=== PATIENT | female | born 1945 | race Caucasian/White ===

== ENCOUNTER 2019-04-09 18:34 | Observation (INO) | payer MEDICARE, SELFPAY ==
[2019-04-09] VITALS (10 sets, daily range): BP systolic 101–143; BP diastolic 54–81; PULSE 69–84; RESP 18–23; TEMP 36.5–36.8; O2SAT 93–99; BMI 38.2
--- NOTE | ~2019-04-09 | CT_ITS ---
EXAMINATION: CTA chest PE abdomen pel EXAM DATE: 04/09/2019 20:11 INDICATION: Pain on exertion. Upper abdominal tenderness. Back pain. TECHNIQUE: Spiral CTA of the chest (pulmonary arteries) was performed with 100 cc Omnipaque 350 intr avenous contrast injection. Images were acquired during the pulmonary arterial phase. Coronal maxi mum intensity projection 3D-reconstructions were created by the technologist on dedicated workstation . Axial, coronal and sagittal reformatted images were reviewed. Spiral CT of the abdomen and pelvis was then performed with the same intravenous contrast injection. Axial, coronal and sagittal reform atted images were reviewed. The dose-length product (DLP) for this examination was 951.19 mGy-cm. T he exposure was tailored according to patient size (auto mA exposure control), and iterative reconst ruction (ASIR) was used as additional dose reduction technique. Comparison is made to prior examinati on from 06/04/2018. FINDINGS: CHEST: Pulmonary arteries are well opacified and without intraluminal filling defects. No thoracic aortic dissection. The lungs are clear. There is mild emphysema. There are no pleural or pericardia l effusions. Tracheobronchial tree is patent. There is no mediastinal, hilar or axillary lymphade nopathy. There is no pneumothorax. Heart normal in size. There is mild coronary arterial calcif ication, arterial sclerosis. ABDOMEN PELVIS: Again there is saccular dilation at the origin of the left internal iliac artery, rohan suring 1.6 cm unchanged. The largest liver cyst is in the left liver lobe lateral segment, measures 2 .6 cm. The spleen, pancreas, and adrenal glands are unremarkable. There are cholecystectomy clips. Portal and splenic veins are patent. Kidneys enhance symmetrically. There is no hydronephrosis. The uterus is not identified and has likely been surgically resected. The bladder is unremarkable. There is no retroperitoneal or pelvic lymphadenopathy. There is moderate scattered arteriosclerotic disease. The appendix is not positively visualized. There is no pericecal inflammatory change to suggest appe ndicitis. The stomach and small bowel are unremarkable. There is mild scattered colonic diverticulo sis. There is no adjacent inflammatory change to suggest diverticulitis. There is expected amount of colonic stool. No free intraperitoneal gas. There are no osteoblastic or osteolytic lesions iden tified. IMPRESSION: 1. No pulmonary emboli or acute findings. 2. Mild scattered colonic diverticulosis. 3. Stable left internal iliac artery aneurysm. Reviewed, dictated and finalized at location A. CAB DRIVER
--- NOTE | 2019-04-09 18:44 | ED.SOB ---
HPI - SOB/Dyspnea General Chief Complaint: Shortness of Breath/Dyspnea Stated Complaint: SOB Time Seen by Provider: 04/09/19 18:43 Source: patient and RN notes reviewed Mode of arrival: other Limitations: no limitations History of Present Illness HPI Narrative: Pt is a 74 y/o female who presents to the ED with c/o intermittent SOB that began this morning after waking up. She notes that her dyspnea is worsened with exertion. Shes states that her PCP prescribed her Meclizine for her sinus congestion. Pt states that her dizziness during her sinus congestion is different than her dizziness now. Pt described her dizziness during her sinus infection as if the room was spinning, but she states that her dizziness is different currently. She states that she only feels dizzy whenever she is short of breath. She notes that 5 years ago, she had her heart checked out at [facility] for an irregular heart beat. Pt also reports brief back pain, brief epigastric abdominal pain that began this morning, diaphoresis, cough, fatigue, and lightheadedness, but denies nausea and vomiting. Pt is taking ASA 81 mg daily. MD elicited complaint: shortness of breath Onset (ago): hour(s) Timing: intermittent Exacerbating factors: exertion Associated symptoms: cough, diaphoresis, abdominal pain (brief epigastric), dizziness (intermittent), lightheadedness and other (brief epigastric abdominal pain, brief back pain, fatigue) Related Data Home Medications Medication Instructions Recorded Confirmed acetaminophen 500 mg PO Q6H PRN 11/28/18 04/09/19 aspirin 81 mg PO DAILY 11/28/18 04/09/19 calcium carbonate-vitamin D3 1 cap PO DAILY 11/28/18 04/09/19 carvedilol 6.25 mg PO BID 11/28/18 04/09/19 cholecalciferol (vitamin D3) 50,000 unit PO [id number] 11/28/18 04/09/19 hydrochlorothiazide 12.5 mg PO DAILY 11/28/18 04/09/19 levothyroxine 125 mcg PO DAILY 11/28/18 04/09/19 polysaccharide iron complex 150 mg PO BID 11/28/18 04/09/19 [Ferrex 150] simvastatin 40 mg PO DAILY 11/28/18 04/09/19 fluticasone propionate 1 spray INTRANASAL DAILY 03/18/19 04/09/19 loratadine [Claritin] 10 mg PO DAILY PRN 03/18/19 04/09/19 meclizine 25 mg PO BID 03/18/19 04/09/19 Allergies Allergy/AdvReac Type Severity Reaction Status Date / Time codeine Allergy Mild Rash Verified 04/09/19 18:58 meperidine Allergy Unknown Unknown Verified 04/09/19 18:58 NSAIDS (Non-Steroidal AdvReac Unknown N/V Verified 04/09/19 18:58 Anti-Inflamma Review of Systems Review of Systems: All systems reviewed & are unremarkable except as noted in HPI and below Constitutional: Constitutional: Reports fatigue Cardiovascular: Cardiovascular: Reports diaphoresis and Reports lightheadedness Respiratory: Respiratory: Reports cough and Reports dyspnea (intermittent) Gastrointestinal: Gastrointestinal: Reports abdominal pain (brief epigastric), Denies nausea and Denies vomiting Musculoskeletal: Musculoskeletal: Reports back pain (brief) Neurologic: Reports dizziness (intermittent) PMFSH Past Medical History Medical History Bronchitis DDD (degenerative disc disease) Endometriosis Hemorrhoid Hiatal hernia HTN (hypertension) Hyperlipidemia Hypothyroid Pancreatitis Presence of pancreatic duct stent 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
--- NOTE | 2019-04-09 18:54 | ECG_ITS ---
Measurements Intervals [place] Rate: 76 P: 28 AR: 169 QRS: 10 QRSD: 85 T: 17 QT: 384 QTc: 433 Interpretive Statements SINUS RHYTHM LOW QRS VOLTAGE IN PRECORDIAL LEADS BASELINE ARTIFACT- I, II, V5 BORDERLINE ECG Electronically Signed On 04-09-2019 20:29:39 LIME KILN AND RECAUSTICIZING OPERATOR by Tj Serra D.O.
[2019-04-09 19:06] LABS: Basophils Absolute Auto 0.1 K/mm3 (0.0-0.1); Eosinophils Absolute Auto 0.5 K/mm3 (0-0.3); Eosinophils Percent Auto 8.7 % (0-4.4); Hematocrit 30.3 % (37.0-47.0); Hemoglobin 9.4 g/dL (12.0-15.0); Immature Granulocyte Absolute 0.03 K/mm3 (0.00-0.031); Immature Granulocyte Percent A 0.5 % (0-0.5); Lymphocytes Absolute Auto 1.07 K/mm3 (0.9-3.2); Lymphocytes Percent Auto 17.2 % (18.3-44.2); Mean Corpuscular Hemoglobin 28.2 pg (26-34); Mean Platelet Volume 9.3 fl (7.4-10.4); Monocytes Absolute Auto 0.4 K/mm3 (0.1-0.6); Monocytes Percent Auto 7.1 % (2.6-8.5); Neutrophils Absolute Auto 4.1 K/mm3 (1.3-6.7); Neutrophils Percent Auto 65.5 % (45.5-73.1); Platelet Count Result 346 k/mm3 (150-375); Red Blood Count 3.33 M/mm3 (4.2-5.4); Red Cell Distribution Width 15.2 % (11.5-14.5); White Blood Count 6.2 K/mm3 (4.5-10.0)
[2019-04-09 19:16] LABS: Partial Thromboplastin Time 33.6 SECONDS (22.3-36.8); Prothrombin Time 12.7 Seconds (11.1-14.7)
[2019-04-09 19:18] LABS: Potassium 3.7 mmol/L (3.4-5.0)
[2019-04-09 19:19] LABS: D Dimer 0.49 ug/mL (<0.48)
[2019-04-09 19:20] LABS: Alanine Aminotransferase 14 U/L (4-35); Albumin Level 4.2 g/dL (3.5-5.1); Alkaline Phosphatase 80 U/L (38-126); Aspartate Amino Transferase 16 U/L (14-36); Bilirubin,Total 0.3 mg/dL (0.2-1.3); Blood Urea Nitrogen 13 mg/dL (7-17); Calcium 9.5 mg/dL (8.4-10.2); Carbon Dioxide 26 mmol/L (22-30); Chloride 100 mmol/L (98-107); Estimated CRCL calculation 53 ml/min; Estimated Glomerular Filt Rate > 60; Glucose 117 mg/dL (65-105); Lipase 120 U/L (23-300); Sodium 139 mmol/L (137-145)
[2019-04-09 19:26] LABS: Add Urine Microscopic? NO; Appearance Urine Clear (Clear); Bilirubin Urine Negative (Negative); Blood Urine Negative (Negative); Color Urine Colorless (Yellow); Glucose Urine UA Negative (Negative); Ketones Urine Negative (Negative); Leukocyte Esterase Ur Negative LEU/UL (Negative); Nitrate Urine Negative (Negative); Protein Urine Negative (Negative); Specific Grav Ur 1.008 (1.001-1.035); Urobilinogen Urine Negative mg/dL (<2.0)
[2019-04-09 19:29] LABS: Troponin I < 0.012 ng/mL (0.000-0.034)
--- NOTE | 2019-04-09 21:58 | ADMGEN ---
This patient, Jory Tucker, was admitted to IMU Room 207-01. Patient/family oriented to hospital policies and general routines including ID bracelet, bed and alarms, visiting hours, pain management, procedures, bathroom and other care routines, personal items, smoking policy, room service/diet, and visiting hours. Valuables list has been completed. Information on how to activate the Rapid Response Team has been discussed. Patient/Family are encouraged to report perceived risks to care and to ask questions if they do not understand what they are told or what they should do.
--- NOTE | 2019-04-09 22:11 | PM.IMHP ---
H&P: HPI History of Present Illness Chief complaint: dyspnea on exertion Narrative: This is a 74 year old female with known history of HTN, hyperlipidemia and hypothyroidism who presented to the hospital with a complaint of exertional dyspnea and generalized weakness. She mentions that approximately 2 weeks ago she had an episode of exertional dyspnea when walking up a flight of stairs that resolved quickly. She had been doing well until this morning when she noticed she had some mild shortness of breath which worsened with exertion. Associated symptoms included diaphoresis. She denies any recent LE swelling, leg redness or leg pain. She also denies any chest pain, cough, abdominal pain, dysuria, hematuria, diarrhea, nausea, vomiting, or rectal bleeding. She mentions that she was recently on antibiotics for 1 week for a sinus infection. The patient is also known to smoke 1/2 pack of cigarettes daily. Her last heart cath was normal and this was done about 10 years ago. The patient does not have any known heart disease. We have been asked to admit the patient to the hospital overnight as this might be an anginal equivalent . On my encounter with the patient rosalind she is currently asymptomatic and has no complaints. Routine labs were obtained and are unremarkable. Review of Systems Review of Systems: All systems reviewed & are unremarkable except as noted in HPI and below PMFSH Past Medical History Medical History Bronchitis DDD (degenerative disc disease) Endometriosis Hemorrhoid Hiatal hernia HTN (hypertension) Hyperlipidemia Hypothyroid Pancreatitis Presence of pancreatic duct stent 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levated blood lipids Family history of coronary artery disease Father Malignant neoplasm of prostate Patient's father is Sibling Malignant neoplasm of prostate Social History Social History Smoking packs per day: 0.5 Smoking cigarettes per day: 10.0 Years smoked: 54 Smoking pack-years: 27.00 Smoking status: Current every day smoker Tobacco type: cigarettes Alcohol intake: never Substance use: never Substance use type: does not use Gender identity (if verbalized by the patient): Female Spiritual care concerns: No Agree to blood products: Yes Meds Home Medications and Allergies Home Medications Medication Instructions Recorded Confirmed Type acetaminophen 500 mg PO Q6H PRN 11/28/18 04/09/19 History aspirin 81 mg PO DAILY 11/28/18 04/09/19 History calcium carbonate-vitamin D3 1 cap PO DAILY 11/28/18 04/09/19 History carvedilol 6.25 mg PO BID 11/28/18 04/09/19 History cholecalciferol (vitamin D3) 50,000 unit PO [id number] 11/28/18 04/09/19 History hydrochlorothiazide 12.5 mg PO DAILY 11/28/18 04/09/19 History levothyroxine 125 mcg PO DAILY 11/28/18 04/09/19 History polysaccharide iron complex 150 mg PO BID 11/28/18 04/09/19 History [Ferrex 150] simvastatin 40 mg PO DAILY 11/28/18 04/09/19 History fluticasone propionate 1 spray INTRANASAL DAILY 03/18/19 04/09/19 History loratadine [Claritin] 10 mg PO DAILY PRN 03/18/19 04/09/19 History meclizine 25 mg PO BID 03/18/19 04/09/19 History Allergies Allergy/AdvReac Type Severity
[2019-04-09 22:47] LABS: Troponin I < 0.012 ng/mL (0.000-0.034)
[2019-04-10] VITALS (10 sets, daily range): BP systolic 102–124; BP diastolic 50–74; PULSE 70–93; RESP 16–18; TEMP 36.3–36.9; O2SAT 94–99
[2019-04-10 02:38] LABS: Troponin I < 0.012 ng/mL (0.000-0.034)
[2019-04-10 04:42] LABS: Basophils Absolute Auto 0.1 K/mm3 (0.0-0.1); Basophils Percent Auto 1.1 % (0.2-1.2); Eosinophils Absolute Auto 0.5 K/mm3 (0-0.3); Hematocrit 29.1 % (37.0-47.0); Immature Granulocyte Absolute 0.01 K/mm3 (0.00-0.031); Immature Granulocyte Percent A 0.2 % (0-0.5); Lymphocytes Absolute Auto 1.07 K/mm3 (0.9-3.2); Lymphocytes Percent Auto 20.5 % (18.3-44.2); Mean Corpuscular HGB Conc 30.9 g/dl (32-36); Mean Corpuscular Hemoglobin 28.1 pg (26-34); Mean Corpuscular Volume 90.9 fl (80-100); Mean Platelet Volume 9.8 fl (7.4-10.4); Monocytes Absolute Auto 0.5 K/mm3 (0.1-0.6); Neutrophils Absolute Auto 3.1 K/mm3 (1.3-6.7); Neutrophils Percent Auto 59.2 % (45.5-73.1); Platelet Count Result 351 k/mm3 (150-375); White Blood Count 5.2 K/mm3 (4.5-10.0)
[2019-04-10 05:11] LABS: Blood Urea Nitrogen 14 mg/dL (7-17); Calcium 9.5 mg/dL (8.4-10.2); Carbon Dioxide 28 mmol/L (22-30); Chloride 108 mmol/L (98-107); Estimated CRCL calculation 68 ml/min; Estimated Glomerular Filt Rate > 60; Glucose 97 mg/dL (65-105); Potassium 3.6 mmol/L (3.4-5.0); Sodium 140 mmol/L (137-145)
[2019-04-10] MEDS: LEVOTHYROXINE SODIUM 125 MCG TABLET PO (06:35)
[2019-04-10 08:17] LABS: Free T4 Free Thyroxine Reflex 0.97 ng/dL (0.78-2.19)
--- NOTE | 2019-04-10 09:08 | PM.CNCAR ---
Assessment and Plan Additional Plan 76-year-old white female with ; Shortness of breath for 2-3 weeks becoming more problematic in recent days prompting ER visit last evening. The patient had no cardiovascular instability by evaluation there she has no history of cardiac disease nor any apparent cardiac reason to be hospitalized. She did have a negative angiogram a number of years ago for reasons that she can't recall. On physical exam she does have occur systolic cardiac murmur but I do not find to be to concerning but given her symptoms should probably be evaluated with an echocardiogram. If 1 has not been ordered I will order 1 for that today. In my opinion the patient probably is having symptomatic dyspnea because of COPD given her 54 year history of smoking. She would likely benefit from pulmonology consultation. Frankly all of this evaluation could also be done as an outpatient. Itz Tineo MD [facility] History of Present Illness History of Present Illness Consult date/time: Date of service: 04/10/19 09:08 Consult reason: shortness of breath Reason For Visit: dyspnea on exertion Narrative: This is a 74-year-old woman left not seen previously and is being evaluated this morning at the hospitalist's request after she was admitted from the emergency room yesterday evening. She came to the emergency room reporting symptoms of shortness of breath. She states that this began about 2 or 3 weeks ago when she was going up the stairs at home caring for her granddaughter. The symptoms seem to resolve and but then have been recurring in the last several days and for this reason she came to the emergency department she reports shortness of breath with moderate activity such as ambulating about her home which is usually not the case. Her shortness of breath is not accompanied by any sense of chest pain pressure or heaviness. She denies any other potential cardiac symptoms such as palpitations syncope orthopnea PND or edema. She is not producing previously known to have any significant cardiac problems. She did states that she was evaluated by the Cardiology group in [place] about 8-10 years ago and had a cardiac catheterization done that was negative. She can't really remember why the procedure was done or the circumstances of that. She sees her PCP will also practice is over [place] for hypertension. 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 That this is not a new problem and has been the case for quite a few years. She is a chronic cigarette smoker smoking about 3/4 to a pack per day since she was 20 years old. She does not believe she has ever been evaluated by a carrot tier regarding potential COPD. Review of Systems Constitutional: Constitutional: Reports no additional constitutional complaints Eyes: Eyes: Reports no additional eye complaints ENT: Reports system reviewed and no additional complaints, except as documented Cardiovascular: Cardiovascular: Reports no additional cardiovascular complaints Respiratory: Respiratory: Reports dyspnea on exertion Gastrointestinal: Gastrointestinal: Reports no additional gastrointestinal complaints Musculoskeletal: Musculoskeletal: Reports no additional musculoskeletal complaints Integumentary/Breasts: Skin/Breast: Reports system reviewed and no additional complaints, except as docu Psychiatric: Psychiatric: Reports no additional psychiatric complaints Endocrine: Endocrine: Reports no additional endocrine complaints Hematologic/Lymphatic: Hematologic/Lymphatic: Reports no additional hematologic/lymphatic complaints PMFSH Past Medical History Medical History Bronchitis DDD (degenerative disc disease) Endometriosis Hemorrhoid Hiatal hernia HTN (hypertension) Hyperlipidemia Hypothyroid Pancreatitis Presence of pancreatic duct stent [place]
[2019-04-10] MEDS: POLYSACCHARIDE IRON COMPLEX 150 MG CAPSULE PO (09:48)
[2019-04-10] MEDS: carvediloL 6.25 MG TABLET PO (09:48)
[2019-04-10] MEDS: FLUTICASONE PROPIONATE 0.05% NA SPR 16 GM BTL (*BKC) 1 SPRAY NASAL (09:49)
[2019-04-10] MEDS: hydroCHLOROthiazide 12.5 MG CAPSULE PO (09:49)
[2019-04-10] MEDS: LORATADINE 10 MG TABLET PO (09:52)
--- NOTE | 2019-04-10 16:21 | PM.DS ---
DS: Diagnosis Admitting Diagnosis Admitting Diagnosis: Other forms of dyspnea Discharge Diagnosis (1) LUU (dyspnea on exertion): Code(s): R06.09 - Other forms of dyspnea Status: Acute Assessment and Plan: Patient presented with dyspnea times 2 weeks. Patient was mildly anemic otherwise lab values are normal. She has chronic anemia dating back to 2018. Urinalysis was clear. Troponin was negative x3. D-dimer was slightly positive. She had a CTA of the chest, abdomen and pelvis which showed no acute findings. Echocardiogram showing diastolic dysfunction grade 1 with an EF of 65-70%. Her TSH was elevated at 17. Patient is compliant with her home medications. Her dyspnea could be related to mild emphysema noted by CT. Cardiology was consulted but had no further recommendations except that patient should follow-up with a casting director. (2) HTN (hypertension): Qualifiers: Hypertension type: unspecified Qualified Code(s): I10 - Essential (primary) hypertension Code(s): I10 - Essential (primary) hypertension Status: Chronic Assessment and Plan: Blood pressure monitored closely. Blood pressure remains stable. (3) Hypothyroid: Qualifiers: Hypothyroidism type: unspecified Qualified Code(s): E03.9 - Hypothyroidism, unspecified Code(s): E03.9 - Hypothyroidism, unspecified Status: Chronic Assessment and Plan: As above. TSH was 17. Patient's Synthroid was advanced at discharge. She will need a repeat TSH in 4-6 weeks. (4) Hyperlipidemia: Qualifiers: Hyperlipidemia type: unspecified Qualified Code(s): E78.5 - Hyperlipidemia, unspecified Code(s): E78.5 - Hyperlipidemia, unspecified Status: Chronic Assessment and Plan: LFTs within normal limits. We continued simvastatin. (5) Anemia: Code(s): D64.9 - Anemia, unspecified Status: Acute Assessment and Plan: Hgb chronically low in the 9-10 range. hgb 9.4 on admission and felt to be at her baseline. Defer to outpatient for further management. DS: Summary Hospital Course Reason for hospitalization: 74yo femael here for dyspnea. Please see H&P for ddetails. Hospital Course: As above Time Spent with Patient Time attestation: Total time spent providing and/or coordinating discharge services: 32 minutes Time spent: Greater than 30 minutes Exam Narrative: Exam Narrative: Gen - NARD Chest - CTA bilaterally, nml RR CV - RRR S1/S2. Telemetry showing no significant dysrhythmias Abd - Soft, NT/ND, Positive BS Ext - No pedal edema Psych - Nml mood and affect Skin - Warm and dry DS: Data Data Completed and Pending Labs on day of discharge: Labs from last 24 hours 04/10/19 04/10/19 04/10/19 04:16 04:16 04:16 WBC RBC Hgb Hct MCV MCH MCHC RDW Plt Count MPV Immature Gran % (Auto) Neut % (Auto) Lymph % (Auto) [place] % (Auto) Eos % (Auto) Baso % (Auto) Lymph # (Auto) [place] # (Auto) Eos # (Auto) Baso # (Auto) Abs Immat Gran (auto) Absolute Neuts (auto) Absolute Nucleated RBC Nucleated RBC % PT INR APTT D-Dimer Sodium Potassium Chloride Carbon Dioxide BUN Creatinine Estim Creat Clear Calc Estimated GFR Glucose Lactic Acid Calcium Magnesium Total Bilirubin AST ALT Alkaline Phosphatase Troponin I Total Protein Albumin Lipase TSH (Reflex) 16.800 H Free T4 0.97 Total T3 1.00 Urine Color Urine Appearance Urine pH Ur Specific [place] Urine Protein Urine Glucose (UA) Urine Ketones Ur Blood (Man) Urine Nitrate Urine Bilirubin Urine Urobilinogen Leukocyte Esterase Rfl 04/10/19 04/10/19 04/10/19 04:16 04:16 01:05 WBC 5.2 RBC 3.20 L Hgb 9.0 L Hct 29.1 L MCV 90.9 MCH 28.1 MCHC 30.9
--- NOTE | 2019-04-10 22:07 | ECHO_ITS ---
Patient Info Name: Jory Tucker Age: 74 years : 1945 Gender: Female Ht: 63 in Wt: 216 lbs BSA: 2.14 m2 HR: 82 bpm BP: 102 / 50 mmHg Heart Rhythm: Sinus Rhythm Technical Quality: Good Exam Date: 04/10/2019 11:23 AM Exam Location: [facility] Pulmonary Patient Status: Inpatient Admit Date: 04/09/2019 Staff Ordering Physician: Buck Vincent MD Dermatology Specialist: Uday Miramontes RDCS Attending Provider: Cr Sandoval MD Referring Physician: Melisa WOLFE; Exam Type: CA echo doppler color flow Study Info Indications R06.02 - Shortness of breath Complete two-dimensional, color flow and Doppler transthoracic echocardiogram is performed. History/Risk Factors SOB; HTN, COPD>. Summary 1. There is mild concentric increased left ventricular wall thickness. 2. Left ventricular systolic function is normal, estimated at 65-70%. 3. The left ventricular diastolic function is grade I diastolic dysfunction. 4. There is mild aortic valve sclerosis. Left Ventricle Left ventricular chamber dimension is normal. Left ventricular systolic function is normal, estimated at 65-70%. There is mild concentric increased left ventricular wall thickness. The left ventricular diastolic function is grade I diastolic dysfunction. Right Ventricle Right ventricular chamber dimension is normal. Left Atria Left atrial chamber dimension is normal. Right Atria Right atrial chamber dimension is normal. Aortic Valve The aortic valve is trileaflet. There is mild aortic valve sclerosis. Pulmonic Valve The pulmonic valve is not well visualized. Mitral Valve The mitral valve has normal leaflets. Tricuspid Valve The tricuspid valve leaflets are normal. Pericardium/Pleural The pericardium appears normal. Aorta The aortic root size at the sinus of Valsalva is normal. Left Ventricular Outflow Tract Name Value Normal LVOT 2D LVOT Diameter 1.8 cm LVOT Doppler LVOT Peak Gradient 8 mmHg LVOT Mean Gradient 4 mmHg LVOT VTI 27 cm LVOT VTI/AV VTI Ratio 0.8 LVOT Stroke Volume 65 ml LVOT CO 5.2 l/min LVOT CI 2.4 l/min/m2 Mitral Valve Name Value Normal MV Doppler MV Decel [place] 194 cm/s2 MV PHT 90 ms MV Area (PHT) 2.5 cm2 4.0-5.0 MV Diastolic Function MV E Peak Velocity 60 cm/s MV A Peak Velocity 83 cm/s MV E/A 0.7 MV Decel Time 309 ms
== END 2019-04-10 17:50 | disposition home or self-care (01) ==
LOC: ANHED 20:53 → ANHIMU 21:01
PROVIDERS: Admitting Provider Family Medicine; Emergency Provider General Practice; PCP Internal Medicine; Visit Provider Internal Medicine
DX: R06.09 Other forms of dyspnea (principal); F17.210 Nicotine dependence, cigarettes, uncomplicated; I10 Essential (primary) hypertension; E03.9 Hypothyroidism, unspecified; E78.5 Hyperlipidemia, unspecified; D64.9 Anemia, unspecified; G47.30 Sleep apnea, unspecified; E53.8 Deficiency of other specified B group vitamins; Z79.82 Long term (current) use of aspirin; Z79.899 Other long term (current) drug therapy; Z85.828 Personal history of other malignant neoplasm of skin
CPT/HCPCS: 36415; 71275; 74177; 80048; 80053; 81003; 83605; 83690; 83735; 84439; 84443; 84480; 84484; 85025; 85380; 85610; 85730; 93005; 93306; 99285; A9270; G0378; Q9967

== ENCOUNTER 2019-10-15 02:16 | Outpatient (CLI) | payer MEDICARE, SELFPAY ==
[2019-10-15 17:02] LABS: SARS-CoV-2 RNA PCR Negative
== END 2019-10-15 02:17 | disposition home or self-care (01) ==
LOC: ANHCOVIDDT 02:17
PROVIDERS: PCP Internal Medicine; Visit Provider Plastic Surgery
DX: Z01.812 Encounter for preprocedural laboratory examination (principal); Z20.828 Contact with and (suspected) exposure to other viral communicable diseases
CPT/HCPCS: 87635; C9803; U0003

== ENCOUNTER 2019-10-17 00:21 | Day surgery (SDC) | payer MEDICARE, SELFPAY ==
[2019-10-15 08:45] VITALS: BMI 31.8
[2019-10-17 11:08] VITALS: BP 137/78; PULSE 69; RESP 16; TEMP 36.9; O2SAT 96
--- NOTE | 2019-10-17 11:42 | WPDANESEPPF ---
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 Patient Data Age: 74 Gender: F Height: 1.59 m Weight: 80 kg Last Vital Signs Temp 36.9 C 10/17/19 11:08 Pulse 69 10/17/19 11:08 Resp 16 10/17/19 11:08 BP 137/78 10/17/19 11:08 Pulse Ox 96 10/17/19 11:08 Allergies Allergy/AdvReac Type Severity Reaction Status Date / Time meperidine Allergy Severe Hallucinati Verified 10/17/19 11:36 ng codeine AdvReac Mild Itching Verified 10/17/19 11:36 NSAIDS (Non-Steroidal AdvReac Mild Gastrointestinal Verified 10/17/19 11:36 Anti-Inflamma Upset Home Medications Medication Instructions Recorded Confirmed Type acetaminophen 500 mg PO PRN PRN 11/28/18 10/15/19 History aspirin 81 mg PO QPM 11/28/18 10/15/19 History calcium carbonate-vitamin D3 1 cap PO DAILY 11/28/18 10/15/19 History carvedilol 6.25 mg PO BID 11/28/18 10/15/19 History hydrochlorothiazide 12.5 mg PO DAILY 11/28/18 10/15/19 History polysaccharide iron complex 150 mg PO BID 11/28/18 10/15/19 History [Ferrex 150] simvastatin 40 mg PO QPM 11/28/18 10/15/19 History levothyroxine 137 mcg PO DAILY #30 tablet 04/10/19 10/15/19 Rx ergocalciferol (vitamin D2) 1,250 mcg PO WEEKLY 09/30/19 10/15/19 History Patient hx anesthesia problems: none Family hx anesthesia problems: none PMFSH Social History Social History Smoking packs per day: 0.5 Smoking cigarettes per day: 10.0 Years smoked: 54 Smoking pack-years: 27.00 Smoking status: Current every day smoker Tobacco type: cigarettes Second hand tobacco smoke exposure: No Alcohol intake: never Substance use: never Substance use type: does not use Living arrangements: alone Gender identity (if verbalized by the patient): Female Spiritual care concerns: No Agree to blood products: Yes Anes - Eval Final PreProcedure Day of Procedure 10/17/19 11:42 Patient weight: obese Heart: regular rate and rhythm Lungs: clear to auscultation and normal air movement Airway: Mallampati scale class II Neurological: alert and oriented Last oral intake: >/= 8 hours ASA classification: III Emergent: no Anesthetic plan: proceed Anesthesia type and monitoring: general LMA and ETT Informed Consent: The patient's anesthetic plan and its attendant risks and benefits were discussed with the patient/family/POA. Questions were solicited and answers provided to the satisfaction of the patient/family/POA.
[2019-10-17] MEDS: LACTATED RINGERS 1,000 ML 30 ML IV CONT (11:45)
--- NOTE | 2019-10-17 13:06 | WPDHPUPDATE1 ---
History and Physical Update Update Date/Time: 10/17/19 13:06 History and Physical has been reviewed, including an updated exam of the patient. There are NO changes in the patient's condition. Risks, benefits, and alternatives have been discussed and questions answered. Patient agrees to proceed with procedure.
--- NOTE | 2019-10-17 13:07 | WPDHPUPDATE1 ---
History and Physical Update Update Date/Time: 10/17/19 13:07 History and Physical has been reviewed, including an updated exam of the patient. There are NO changes in the patient's condition. Risks, benefits, and alternatives have been discussed and questions answered. Patient agrees to proceed with procedure. The patient has consented to the removal of a second ulcerated neoplasm of the distal anterior left lower leg and FS and possible FTSG .
[2019-10-17] MEDS: ceFAZolin SODIUM 1 GM VIAL 2 GM IV PUSH (13:31)
[2019-10-17] MEDS: LIDO 1%/EPINEPHRINE 1:100,000 20 ML VIAL INFILTRATE (13:35)
[2019-10-17 14:49] VITALS: BP 110/72; PULSE 74; RESP 16; O2SAT 95
[2019-10-17 15:20] VITALS: BP 128/69; PULSE 67
[2019-10-17 15:40] VITALS: BP 107/68; PULSE 65
--- NOTE | 2019-10-18 13:29 | PM.PROC ---
Procedure Note - Detailed Date of procedure: 10/18/19 Pre-op diagnosis: Neoplasm Of Unspec. Behav. Left Medial Calf Neoplasm of unspecified behavior of left medial leg. Neoplasm of unspecified behavior of left anterior leg. Post-op diagnosis: other (1. SCC of left medial leg. 2. Keratotic hemangioma of left angerior leg.) Procedure performed: 3 cm excision squamous cell carcinoma of the left medial leg with frozen section and full-thickness skin graft 4 sq cm. 1.5 cm excision of keratotic hemangioma of the left anterior leg with frozen section and full-thickness skin graft 2 sq cm Description of procedure: The patient had been scheduled for excision of the ulcerated neoplasm of the left medial leg suspicious for keratoacanthoma. On the day of surgery she asked that a smaller nearby neoplasm also be removed so that she might not have to come back to the hospital again soon. We amended her consent to reflect that choice. The 2 sites were marked in the holding area. She was transported to the operating room and placed supine on the operating table. A time-out was held and confirmed. The left lower extremity from the groin to the foot was prepped and draped in usual fashion the 2 sites in question were marked for margin and axis of excision. The 2 sites were infiltrated with 1% lidocaine with epinephrine. The larger medial lesion was excised with over 0.5 cm margin and taken from the deep fascia. It was marked at its cephalad aspect and sent for frozen section. The smaller lesion was taken with a narrow were margin but also taken from the deep fascia it was also marked at its cephalad aspect for orientation. The donor site was marked on the thigh and infiltrated with 1% lidocaine with epinephrine. We plan to take 2 full-thickness grafts from the same site. That process was begun while the specimen was yet out for evaluation. The pathologist reports that the larger lesion is squamous cell carcinoma and at the margins were free. The smaller lesion was a keratotic hemangioma and not found to be malignant. When the final reports were available the donor site excision was completed. The margins were undermined and that wound closed with intradermal 2-0 Vicryl sutures and glue. The skin grafts were very carefully defatted divided between the 2 wounds and inset with 5 0 running nylon and 5 0 quilting sutures. Bulky gauze dressing was applied to the site and a 4 in Coban wrap was applied. The patient had received 2 g of Ancef at the start of the case. She was discharged with a prescription for cephalexin 500 mg 15. . She was prescribed hydrocodone 5/325 14. . She has instructions in wound care and follow-up Surgeon: Benjamin Sierra MD
== END 2019-10-17 15:58 | disposition home or self-care (01) ==
PROVIDERS: PCP Internal Medicine; Visit Provider Plastic Surgery
PROC: (CPT 11603; principal; 2019-10-17 13:00)
DX: C44.729 Squamous cell carcinoma of skin of left lower limb, including hip (principal); D18.01 Hemangioma of skin and subcutaneous tissue; F17.210 Nicotine dependence, cigarettes, uncomplicated; Z79.82 Long term (current) use of aspirin; E66.9 Obesity, unspecified; Z68.31 Body mass index [BMI] 31.0-31.9, adult
CPT/HCPCS: 11603; 11402; 15220; 88305; 88331; 88332; J0690; J2704; J3010; J7120

== ENCOUNTER 2019-10-29 00:26 | Outpatient (CLI) | payer MEDICARE, SELFPAY ==
[2019-10-29 20:04] LABS: SARS-CoV-2 RNA PCR Negative
== END 2019-10-29 00:27 | disposition home or self-care (01) ==
LOC: ANHCOVIDDT 00:27
PROVIDERS: PCP Internal Medicine; Visit Provider Plastic Surgery
DX: Z01.812 Encounter for preprocedural laboratory examination (principal); Z11.59 Encounter for screening for other viral diseases
CPT/HCPCS: 87635; C9803; U0003

== ENCOUNTER 2019-10-29 08:40 | Outpatient (CLI) | payer MEDICARE, SELFPAY ==
[2019-10-29 09:00] LABS: Hematocrit 33.7 % (37.0-47.0); Hemoglobin 10.7 g/dL (12.0-15.0)
[2019-10-29 09:15] LABS: Anion Gap 6 mmol/L (8-16); Blood Urea Nitrogen 14 mg/dL (7-17); Carbon Dioxide 28 mmol/L (22-30); Chloride 103 mmol/L (98-107); Estimated Glomerular Filt Rate > 60; Glucose 100 mg/dL (65-105); Potassium 4.6 mmol/L (3.4-5.0); Sodium 137 mmol/L (137-145)
== END 2019-10-29 08:41 | disposition home or self-care (01) ==
LOC: ANHSURGERY 08:43
PROVIDERS: Anesthesiology; PCP Internal Medicine; Visit Provider Plastic Surgery
DX: Z01.818 Encounter for other preprocedural examination (principal); I10 Essential (primary) hypertension; D64.9 Anemia, unspecified
CPT/HCPCS: 36415; 80048; 85014; 85018; 87635; C9803; U0003

== ENCOUNTER 2019-10-31 02:12 | Day surgery (SDC) | payer MEDICARE, SELFPAY ==
[2019-10-28 15:44] VITALS: BMI 31.8
--- NOTE | 2019-10-31 07:17 | WPDHPUPDATE1 ---
History and Physical Update Update Date/Time: 10/31/19 07:17 History and Physical has been reviewed, including an updated exam of the patient. There are NO changes in the patient's condition. Risks, benefits, and alternatives have been discussed and questions answered. Patient agrees to proceed with procedure.
[2019-10-31 10:39] VITALS: BP 133/78; PULSE 77; RESP 20; TEMP 37.1; O2SAT 96
[2019-10-31] MEDS: LACTATED RINGERS 1,000 ML 30 ML IV CONT (11:00)
[2019-10-31] MEDS: fentaNYL CITRATE INJ (*CRX) 100 MCG/2 ML VIAL 25 MCG IV PUSH ×2 (11:06→13:58)
--- NOTE | 2019-10-31 11:22 | WPDANESEPPF ---
Anes - Initial Pre Proc Eval Procedure: Operation Date: 10/31/19 12:30 Proposed Procedures p Application Of Full Thickness Skin Graft To the Left Medial Leg From The Right Thigh And Placement Of Wound Vac - Benjamin Sierra MD Date/Time: 10/31/19 11:22 Surgeon: Benjamin Sierra MD Pre Op Diagnosis: Failed Skin Graft Left Medial Leg Patient Data Age: 74 Gender: F Height: 5 ft 2.5 in Weight: 79.8 kg Last Vital Signs Temp 98.7 F 10/31/19 10:39 Pulse 77 10/31/19 10:39 Resp 20 10/31/19 10:39 BP 133/78 10/31/19 10:39 Pulse Ox 96 10/31/19 10:39 Allergies Allergy/AdvReac Type Severity Reaction Status Date / Time meperidine Allergy Severe Hallucinati Verified 10/31/19 11:11 ng codeine AdvReac Mild Itching Verified 10/31/19 11:11 NSAIDS (Non-Steroidal AdvReac Mild Gastrointestinal Verified 10/31/19 11:11 Anti-Inflamma Upset Home Medications Medication Instructions Recorded Confirmed Type acetaminophen 500 mg PO PRN PRN 11/28/18 10/28/19 History aspirin 81 mg PO QPM 11/28/18 10/31/19 History calcium carbonate-vitamin D3 1 cap PO DAILY 11/28/18 10/31/19 History carvedilol 6.25 mg PO BID 11/28/18 10/31/19 History hydrochlorothiazide 12.5 mg PO DAILY 11/28/18 10/31/19 History polysaccharide iron complex 150 mg PO BID 11/28/18 10/31/19 History [Ferrex 150] simvastatin 40 mg PO QPM 11/28/18 10/31/19 History levothyroxine 137 mcg PO DAILY #30 tablet 04/10/19 10/31/19 Rx ergocalciferol (vitamin D2) 1,250 mcg PO WEEKLY 09/30/19 10/31/19 History Patient hx anesthesia problems: none Family hx anesthesia problems: none PMFSH Social History Social History Smoking packs per day: 0.5 Smoking cigarettes per day: 10.0 Years smoked: 54 Smoking pack-years: 27.00 Smoking status: Current every day smoker Tobacco type: cigarettes Second hand tobacco smoke exposure: No Alcohol intake: never Substance use: never Substance use type: does not use Living arrangements: with family Gender identity (if verbalized by the patient): Female Spiritual care concerns: No Agree to blood products: Yes Anes - Eval Final PreProcedure Day of Procedure 10/31/19 11:22 Patient weight: overweight Heart: regular rate and rhythm Lungs: clear to auscultation Airway: Mallampati scale class III Neurological: alert and oriented Last oral intake: >/= 8 hours ASA classification: III Emergent: no Anesthetic plan: proceed Anesthesia type and monitoring: general GIVS and standard monitoring Informed Consent: The patient's anesthetic plan and its attendant risks and benefits were discussed with the patient/family/POA. Questions were solicited and answers provided to the satisfaction of the patient/family/POA.
--- NOTE | 2019-10-31 12:13 | PCWOUND ---
Wocn NOte Instructed patient on operation of he wound vac, patient signed acceptance form. form faxed to [facility]
[2019-10-31] MEDS: ceFAZolin SODIUM 1 GM VIAL 2 GM IV PUSH (12:33)
[2019-10-31] MEDS: LIDO 1%/EPINEPHRINE 1:100,000 20 ML VIAL INFILTRATE (12:42)
[2019-10-31 13:47] VITALS: BP 113/77; PULSE 77; RESP 16; TEMP 36.3; O2SAT 94
[2019-10-31 14:10] VITALS: BP 125/77; PULSE 72; RESP 16; O2SAT 94
--- NOTE | 2019-10-31 14:32 | PM.PROC ---
Procedure Note - Detailed Date of procedure: 10/31/19 Pre-op diagnosis: Failed Skin Graft Left Medial Leg Post-op diagnosis: same Procedure performed: FTSG right thigh to left leg wound. Anesthesia: MAC Surgeon: Benjamin Sierra MD Estimated blood loss (mL): 3 Tourniquet time (min): 0 Drains: Yes (Wound Vac to graft.) Packing: No Pathology: none sent Complications: No immediate complications Condition: stable Disposition: same day
[2019-10-31] MEDS: oxyCODONE HCL (*CRX) 5 MG TAB IR PO (14:34)
--- NOTE | 2019-10-31 14:36 | P.OP_ITS ---
Procedure Note - Detailed Date of procedure: 10/31/19 Pre-op diagnosis: Failed Skin Graft Left Medial Leg Post-op diagnosis: same Procedure performed: Full-thickness skin graft 6 sq cm from right thigh to left leg wound Description of procedure: The sites on the patient's extremities were marked in preop. She was taken to the operating room and placed supine on the operating table. A time-out was held and confirmed. She was given IV sedation. The 2 extremities were prepped and draped as usual. The wound site on the left medial leg was infiltrated with 1% lidocaine with epinephrine. It was cleansed of all clot material. The donor site on the right thigh was identified and marked for a full-thickness skin graft. This area was infiltrated with 1% lidocaine with epinephrine. The graft was harvested using the [employer] dermatome set at 30,000 of an inch in thickness. The graft was meshed 1 to 1-1/2. The donor site was incised 1 1/2 cm in all directions and the remaining dermis was excised. That wound was closed with intradermal 2-0 Vicryl suture and glue. The meshed graft was inset to the prior wound with interrupted 5 0 nylon and running 5 0 chromic suture. A wound VAC dressing was applied in the operating room. This involved the primary layer of Mepilex 1 on the wound bed. The patient was discharged from the operating room in stable condition she had been given 2 g of Ancef during surgery at the onset. She is discharged with cephalexin 500 mg t.i.d. number 15. She has prescription for hydrocodone/APAP 5/325 #12. The wound VAC is to be left on until her 1st postop visit. Surgeon: Benjamin Sierra MD
--- NOTE | 2019-10-31 14:39 | SUR.PHASEII ---
DR. FRANZ IN TO SEE PT AND TO INSTRUCT PT RE: WOUNDVAC.
[2019-10-31 14:40] VITALS: BP 114/60; PULSE 77; RESP 16
--- NOTE | 2019-10-31 15:01 | SUR.PHASEII ---
DR. FRANZ AT BEDSIDE CHECKING WOUND VAC.
--- NOTE | 2019-10-31 15:32 | SUR.PHASEII ---
MARY, DOWEL STICKER OPERATOR HERE TO CHECK WOUND VAC.
== END 2019-10-31 15:33 | disposition home or self-care (01) ==
PROVIDERS: PCP Internal Medicine; Visit Provider Plastic Surgery
PROC: (CPT 15220; principal; 2019-10-31 12:30)
DX: T86.821 Skin graft (allograft) (autograft) failure (principal); Y83.2 Surgical operation with anastomosis, bypass or graft as the cause of abnormal reaction of the patient, or of later complication, without mention of misadventure at the time of the procedure; J44.9 Chronic obstructive pulmonary disease, unspecified; D64.9 Anemia, unspecified; F17.210 Nicotine dependence, cigarettes, uncomplicated; Z79.82 Long term (current) use of aspirin
CPT/HCPCS: 15220; A9270; J0690; J1100; J2250; J2405; J2704; J3010; J7120

== ENCOUNTER 2019-12-24 07:31 | Outpatient (RCR) | payer MEDICARE, SELFPAY ==
[2019-11-27 13:37] VITALS: BMI 32.1
== END 2020-02-10 08:37 | disposition home or self-care (01) ==
LOC: ANHWOC 07:31
PROVIDERS: PCP Internal Medicine; Visit Provider Plastic Surgery
DX: Z48.817 Encounter for surgical aftercare following surgery on the skin and subcutaneous tissue (principal); T86.821 Skin graft (allograft) (autograft) failure; I89.0 Lymphedema, not elsewhere classified
CPT/HCPCS: 99212; G0463

== ENCOUNTER 2019-12-26 08:01 | Outpatient (CLI) | payer MEDICARE, SELFPAY ==
--- NOTE | ~2019-12-26 | US_ITS ---
EXAMINATION: US art doppler w press GABRIEL ANDREA EXAM DATE: 12/26/2019 09:00 INDICATION: Atherosclerosis. Bilateral leg pain. TECHNIQUE: Segmental pressures and plethysmographic and Doppler waveforms of the brachial and lower e xtremity arteries were obtained. There is no prior study for comparison. FINDINGS: Right and left brachial artery pressures of 121 mm Hg and 118 mm Hg, respectively, are concordant (no rmal difference <= 30 mmHg). RIGHT LEG: The ankle-brachial index (SONDRA) is 1.23 (normal >= 0.9-1). The great toe-brachial index (TBI) is 1.21 (normal >= 0.65). The lower extremity ratios, segmental pressure gradients as follows; Proximal superficial femoral artery:- Not available ( mmHg). Distal superficial femoral artery: ----- 1.18 (143 mmHg). Popliteal: 1.17 (141 mmHg). Dorsalis pedis: 0.97 (117 mmHg). Posterior tibial: 1.23 (149 mmHg). (Normal gradients <= 20-30 mmHg between adjacent levels on the same leg or the same levels on the two legs). Arterial waveforms are biphasic. LEFT LEG: The ankle-brachial index (SONDRA) is 1.23 (normal >= 0.9-1). The great toe-brachial index (TBI) is 1.21 (normal >= 0.65). The lower extremity ratios, segmental pressure gradients as follows; Proximal superficial femoral artery:- Not available ( mmHg). Distal superficial femoral artery: ----- 1.21 (146 mmHg). Popliteal: 1.21 (146 mmHg). Dorsalis pedis: 1.15 (139 mmHg). Posterior tibial: 1.23 (149 mmHg). (Normal gradients <= 20-30 mmHg between adjacent levels on the same leg or the same levels on the two legs). Arterial waveforms are biphasic. IMPRESSION: 1. Right ankle-brachial index 1.23, normal. 2. Left ankle-brachial index 1.23, normal. 3. Segmental pressures as above. Reviewed, dictated and finalized at location A. OVEMENT COORDINATOR
== END 2019-12-26 08:02 | disposition home or self-care (01) ==
PROVIDERS: PCP Internal Medicine; Visit Provider Plastic Surgery
DX: I70.203 Unspecified atherosclerosis of native arteries of extremities, bilateral legs (principal); R09.89 Other specified symptoms and signs involving the circulatory and respiratory systems
CPT/HCPCS: 93923

== ENCOUNTER 2019-12-28 01:34 | Outpatient (CLI) | payer MEDICARE, SELFPAY ==
[2019-12-28 19:09] LABS: SARS-CoV-2 RNA PCR Negative
== END 2019-12-28 01:35 | disposition home or self-care (01) ==
LOC: ANHCOVIDDT 01:34
PROVIDERS: PCP Internal Medicine; Visit Provider Plastic Surgery
DX: Z01.818 Encounter for other preprocedural examination (principal); Z20.828 Contact with and (suspected) exposure to other viral communicable diseases
CPT/HCPCS: 87635; C9803; U0003

== ENCOUNTER 2019-12-30 08:19 | Outpatient (CLI) | payer MEDICARE, SELFPAY ==
[2019-12-30 08:44] LABS: Anion Gap 8 mmol/L (8-16); Blood Urea Nitrogen 9 mg/dL (7-17); Calcium 9.3 mg/dL (8.4-10.2); Carbon Dioxide 25 mmol/L (22-30); Chloride 105 mmol/L (98-107); Estimated Glomerular Filt Rate > 60; Glucose 179 mg/dL (65-105); Potassium 3.7 mmol/L (3.4-5.0); Sodium 138 mmol/L (137-145)
== END 2019-12-30 08:20 | disposition home or self-care (01) ==
LOC: ANHSURGERY 08:21
PROVIDERS: Anesthesiology; PCP Internal Medicine; Visit Provider Plastic Surgery
DX: Z01.818 Encounter for other preprocedural examination (principal); Z79.899 Other long term (current) drug therapy
CPT/HCPCS: 36415; 80048

== ENCOUNTER 2020-01-01 00:25 | Day surgery (SDC) | payer MEDICARE, SELFPAY ==
[2019-12-18 10:25] VITALS: BMI 31.6
--- NOTE | 2019-12-31 15:00 | WPDANESEPPF ---
Anes - Initial Pre Proc Eval Procedure: Operation Date: 01/01/20 07:30 Proposed Procedures p Excision Neoplasm Unspecified Behavior Right Lateral Leg with Frozen Section and Possible Full Thickness Skin Graft, Excision Left Medial Leg Neoplasm Near Old Skin Graft with Frozen Section - Benjamin Sierra MD Date/Time: 12/31/19 15:00 Surgeon: Benjamin Sierra MD Pre Op Diagnosis: neoplasm unspec behavior right lateral leg, Patient Data Age: 74 Gender: F Height: 5 ft 2.5 in Weight: 79.8 kg Allergies Allergy/AdvReac Type Severity Reaction Status Date / Time meperidine Allergy Severe Hallucinati Verified 12/18/19 10:12 ng codeine AdvReac Mild Itching Verified 12/18/19 10:12 NSAIDS (Non-Steroidal AdvReac Mild Gastrointestinal Verified 12/18/19 10:12 Anti-Inflamma Upset Home Medications Medication Instructions Recorded Confirmed Type acetaminophen 500 mg PO PRN PRN 11/28/18 12/18/19 History aspirin 81 mg PO QPM 11/28/18 12/18/19 History calcium carbonate-vitamin D3 1 cap PO DAILY 11/28/18 12/18/19 History carvedilol 6.25 mg PO BID 11/28/18 12/18/19 History hydrochlorothiazide 12.5 mg PO DAILY 11/28/18 12/18/19 History polysaccharide iron complex 150 mg PO BID 11/28/18 12/18/19 History [Ferrex 150] simvastatin 40 mg PO QPM 11/28/18 12/18/19 History levothyroxine 137 mcg PO DAILY #30 tablet 04/10/19 12/18/19 Rx ergocalciferol (vitamin D2) 1,250 mcg PO WEEKLY 09/30/19 12/18/19 History Patient hx anesthesia problems: none Family hx anesthesia problems: none PMFSH Past Medical History Medical History (Updated 04/10/19 @ 16:25 by Cr Sandoval MD) Bronchitis DDD (degenerative disc disease) Endometriosis Hemorrhoid Hiatal hernia HTN (hypertension) Hyperlipidemia Hypothyroid Pancreatitis Presence of pancreatic duct stent 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levated blood lipids Family history of coronary artery disease Father Malignant neoplasm of prostate Patient's father is Sibling Malignant neoplasm of prostate Social History Social History Smoking packs per day: 0.5 Smoking cigarettes per day: 10.0 Years smoked: 54 Smoking pack-years: 27.00 Smoking status: Current every day smoker Tobacco type: cigarettes Second hand tobacco smoke exposure: Yes Additional smoking assessment comments: STATES 1/2PK/DAY/50+YRS Alcohol intake: never Substance use: never Substance use type: does not use Living arrangements: with family Gender identity (if verbalized by the patient): Female Spiritual care concerns: No Agree to blood products: Yes Anes - Eval Final PreProcedure Day of Procedure 12/31/19 15:00 Patient weight: overweight Heart: regular rate and rhythm Lungs: clear to auscultation Airway: Mallampati scale class III Neurological: alert and oriented Last oral intake: >/= 8 hours ASA classification: III Emergent: no Anesthetic plan: proceed Anesthesia type and monitoring: general LMA and standard monitoring Informed Consent: The patient's anesthetic plan and its attendant risks and benefits were discussed with the patient/family/POA. Questions were solicited and answers provided to the satisfaction of the patient/family/POA.
[2020-01-01] VITALS (8 sets, daily range): BP systolic 100–123; BP diastolic 63–75; PULSE 77–86; RESP 18–20; TEMP 36.6–37; O2SAT 91–97
[2020-01-01] MEDS: LACTATED RINGERS 1,000 ML 30 ML IV CONT ×3 (06:33→10:01)
--- NOTE | 2020-01-01 07:19 | WPDHPUPDATE1 ---
History and Physical Update Update Date/Time: 01/01/20 07:19 History and Physical has been reviewed, including an updated exam of the patient. There are NO changes in the patient's condition. Risks, benefits, and alternatives have been discussed and questions answered. Patient agrees to proceed with procedure.
[2020-01-01] MEDS: LIDO 1%/EPINEPHRINE 1:100,000 20 ML VIAL 30 ML INFILTRATE (08:17)
[2020-01-01] MEDS: MINERAL OIL LIGHT 30 ML BTL TOPICAL (08:17)
[2020-01-01] MEDS: EPINEPHrine HCL INJ 1 MG/ML AMPUL IRRIGATION (08:18)
--- NOTE | 2020-01-01 08:18 | SUR.OPER ---
frozen section x 2 sent with RALPH Pugh and received in pathology by Liliana
[2020-01-01] MEDS: BACITRACIN OINTMENT 15 GM TUBE 1 APPLIC TOPICAL (08:24)
--- NOTE | 2020-01-01 09:55 | SUR.PHASEI ---
0955- awake, voicing no c/o pain. pedal pulses present, strong. toes mobile.
[2020-01-01] MEDS: ONDANSETRON INJ 4 MG/2 ML VIAL IV PUSH (10:27)
--- NOTE | 2020-01-01 11:36 | PM.OP ---
Procedure Note - Brief Procedure Note - Brief Date of procedure: 01/01/20 Pre-op diagnosis: neoplasm unspec behavior right lateral leg, Post-op diagnosis: same Procedure performed: 3.0 cm excision of SCC right lateral leg with FS and FTSG 7 sq cm. 1.0 cm excision of non malignant neoplasm of left anterior leg near existing skin graft with FS and FTSG 1.0 sq cm. Description of procedure: The 2 sites of interest were marked on the patient in the holding area. These included the right lateral leg where there is a pink 2 cm tumor and on the left on the inferior aspect of an existing skin graft. She was taken to the operating room and placed supine on the operating table. A time-out was held and confirmed. She was given general endotracheal anesthesia as the lower extremities were prepped and draped in the usual fashion. The 2 sites were carefully marked for excision and locally infiltrated with 1% lidocaine with epinephrine. The 2 cm nodular lesion from the right lateral leg was excised with a 15 blade through full-thickness of skin into subcutaneous tissue. This superior aspect of this specimen was marked with a suture for 12:00 o'clock. Attention was turned to the left leg where the small red mass on the inferior aspect of the skin graft was taken with a 15 blade. The most lateral aspect was marked with a suture for 12:00 o'clock. The specimen was sent for frozen section. The report from pathology indicated that the lesion on the right lateral leg was a squamous cell carcinoma margins were free and the tissue extended fairly deeply into the subcutaneous tissue. The lesion from the left anterior leg was non malignant. Skin graft was prepared on the right anterior thigh. This was measured, infiltrated with 1% lidocaine with epinephrine and incised into the dermis. A [employer] dermatome then removed skin estimated at 1600 of an inch in thickness. This was meshed 1 to 1-1/2 and inset with a running 5 0 nylon. It was seated into the bed with 2 quilting stitches. The donor site was debrided of redundant tissue and closed with intradermal 2-0 Vicryl suture after undermining the wound edges below superficial fascia. A small piece of graft was inset to this smaller anterior leg wound without meshing. The 2 grafts were dressed with Mepilex Ag pads, 4 x 4 gauze, Tegaderm, Kerlix roll and Coban. The donor site was closed with glue covered with 4 x 4 gauze and Tegaderm. The patient was discharged from the operating room. After recovery she will be discharged with instructions in wound care and follow-up. She will have a prescription for hydrocodone number 12. Anesthesia: BRIAN Surgeon: Benjamin Sierra MD Language Therapist: Harry Estimated blood loss (mL): 10 Tourniquet time (min): 0 Drains: No Packing: No Pathology: yes Complications: No immediate complications Condition: stable Disposition: PACU
== END 2020-01-01 11:20 | disposition home or self-care (01) ==
PROVIDERS: PCP Internal Medicine; Visit Provider Plastic Surgery
PROC: (CPT 11603; principal; 2020-01-01 07:30)
DX: C44.722 Squamous cell carcinoma of skin of right lower limb, including hip (principal); I87.2 Venous insufficiency (chronic) (peripheral); I10 Essential (primary) hypertension; E78.5 Hyperlipidemia, unspecified; E03.9 Hypothyroidism, unspecified; G47.30 Sleep apnea, unspecified; D51.9 Vitamin B12 deficiency anemia, unspecified; F17.210 Nicotine dependence, cigarettes, uncomplicated
CPT/HCPCS: 11603; 15220; 11401; 88305; 88331; 88332; 88342; A9270; J0171; J1100; J2405; J2704; J3010; J7120

== ENCOUNTER 2020-04-03 07:29 | Outpatient (RCR) | payer MEDICARE, SELFPAY ==
[2020-03-06 12:26] VITALS: BMI 32.1
== END 2020-05-13 14:44 | disposition home or self-care (01) ==
LOC: ANHWOC 07:29
PROVIDERS: PCP Internal Medicine; Visit Provider Plastic Surgery
DX: Z48.817 Encounter for surgical aftercare following surgery on the skin and subcutaneous tissue (principal); Z94.5 Skin transplant status
CPT/HCPCS: 99212; A9270; G0463

== ENCOUNTER 2020-08-24 11:30 | Outpatient (CLI) | payer MEDICARE, SELFPAY ==
[2020-08-24 12:00] LABS: Hematocrit 34.4 % (37.0-47.0)
== END 2020-08-24 11:31 | disposition home or self-care (01) ==
LOC: ANHSURGERY 11:35
PROVIDERS: Anesthesiology; PCP Internal Medicine; Visit Provider Plastic Surgery
DX: Z01.812 Encounter for preprocedural laboratory examination (principal); D64.9 Anemia, unspecified
CPT/HCPCS: 36415; 85014; 85018

== ENCOUNTER 2020-08-27 01:14 | Day surgery (SDC) | payer MEDICARE, SELFPAY ==
[2020-08-21 12:26] VITALS: BMI 32.4
[2020-08-27 08:00] VITALS: BP 123/75; PULSE 69; RESP 16; TEMP 36.5; O2SAT 96
[2020-08-27 08:11] VITALS: BMI 32.9
--- NOTE | 2020-08-27 08:43 | WPDANESEPPF ---
Anes - Initial Pre Proc Eval Procedure: Operation Date: 08/27/20 10:00 Proposed Procedures p Excision Neoplasm Unspecified Behavior Right Lateral Leg, with Frozen Section, Full Thickness Skin Graft - Benjamin Sierra MD Date/Time: 08/27/20 08:43 Surgeon: Benjamin Sierra MD Pre Op Diagnosis: neoplasm unspecified behavior rt. lat.leg Patient Data Age: 75 Gender: F Height: 1.57 m Weight: 81.7 kg Allergies Allergy/AdvReac Type Severity Reaction Status Date / Time meperidine Allergy Severe Hallucinati Verified 08/27/20 08:05 ng codeine AdvReac Mild Itching Verified 08/27/20 08:05 NSAIDS (Non-Steroidal AdvReac Mild Gastrointestinal Verified 08/27/20 08:05 Anti-Inflamma Upset Home Medications Medication Instructions Recorded Confirmed Type acetaminophen 500 mg PO PRN PRN 11/28/18 08/21/20 History aspirin 81 mg PO QPM 11/28/18 08/27/20 History calcium carbonate-vitamin D3 1 cap PO DAILY 11/28/18 08/21/20 History carvedilol 6.25 mg PO BID 11/28/18 08/27/20 History hydrochlorothiazide 12.5 mg PO DAILY 11/28/18 08/21/20 History polysaccharide iron complex 150 mg PO BID 11/28/18 08/21/20 History [Ferrex 150] simvastatin 40 mg PO QPM 11/28/18 08/21/20 History levothyroxine 125 mcg PO DAILY 08/21/20 08/27/20 History Patient hx anesthesia problems: none Family hx anesthesia problems: none PMFSH Past Medical History Medical History Bronchitis DDD (degenerative disc disease) Endometriosis Hemorrhoid Hiatal hernia HTN (hypertension) Hyperlipidemia Hypothyroid Pancreatitis Presence of pancreatic duct stent 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levated blood lipids Family history of coronary artery disease Father Malignant neoplasm of prostate Patient's father is Sibling Malignant neoplasm of prostate Social History Social History Smoking packs per day: 0.5 Smoking cigarettes per day: 10.0 Years smoked: 54 Smoking pack-years: 27.00 Smoking status: Current every day smoker Tobacco type: cigarettes Second hand tobacco smoke exposure: No Additional smoking assessment comments: STATES 1/2PK/DAY/50+YRS Alcohol intake: never Substance use: never Substance use type: does not use Living arrangements: alone Gender identity (if verbalized by the patient): Female Spiritual care concerns: No Agree to blood products: Yes Anes - Eval Final PreProcedure Day of Procedure 08/27/20 08:43 Patient weight: obese Heart: regular rate and rhythm Lungs: decreased breath sounds Airway: Mallampati scale class III Neurological: other (alert) Last oral intake: >/= 8 hours ASA classification: III Emergent: no Anesthetic plan: proceed Anesthesia type and monitoring: general GIVS and standard monitoring Informed Consent: The patient's anesthetic plan and its attendant risks and benefits were discussed with the patient/family/POA. Questions were solicited and answers provided to the satisfaction of the patient/family/POA.
--- NOTE | 2020-08-27 09:17 | WPDHPUPDATE1 ---
History and Physical Update Update Date/Time: 08/27/20 09:17 History and Physical has been reviewed, including an updated exam of the patient. There are NO changes in the patient's condition. Risks, benefits, and alternatives have been discussed and questions answered. Patient agrees to proceed with procedure.
[2020-08-27] MEDS: LACTATED RINGERS 1,000 ML 30 ML IV CONT ×2 (09:24→11:45)
[2020-08-27] MEDS: LIDO 1%/EPINEPHRINE 1:100,000 20 ML VIAL INFILTRATE (09:29)
[2020-08-27] MEDS: ceFAZolin SODIUM 1 GM VIAL IV PUSH (09:56)
[2020-08-27] MEDS: BACITRACIN OINTMENT 15 GM TUBE 1 APPLIC TOPICAL (11:22)
[2020-08-27 11:50] VITALS: BP 107/64; PULSE 70; RESP 14; O2SAT 95
--- NOTE | 2020-08-27 12:16 | PM.OP ---
Procedure Note - Brief Procedure Note - Brief Date of procedure: 08/27/20 Pre-op diagnosis: neoplasm unspecified behavior rt. lat.leg Post-op diagnosis: same Procedure performed: 3.5 cm excision of ulcerated neoplasm of the right lateral leg with FS and FTSG 12 sq cm. Anesthesia: GETA Surgeon: Benjamin Sierra MD Gunite Mixer: Vanessa Jesus Estimated blood loss (mL): 5 Drains: No Packing: No Pathology: yes Complications: No immediate complications Condition: stable Disposition: PACU
[2020-08-27 12:20] VITALS: BP 114/59; PULSE 64; RESP 16
[2020-08-27 12:50] VITALS: BP 121/65; PULSE 66; RESP 16
--- NOTE | 2020-08-27 13:19 | P.OP_ITS ---
Procedure Note - Detailed Date of Procedure 08/27/20 Pre-op Diagnosis neoplasm unspecified behavior rt. lat.leg Surgeon Benjamin Sierra MD
--- NOTE | 2020-08-27 13:20 | P.OP_ITS ---
Procedure Note - Detailed Date of Procedure 08/27/20 Pre-op Diagnosis neoplasm unspecified behavior rt. lat.leg Post-op Diagnosis same Procedure Performed 3.5 cm excision ulcerated squamous neoplasm of the right lateral leg with frozen section and full-thickness skin graft 12 sq cm Surgeon Mariela Anesthesia MAC Findings a 2.5 cm ulcerated skin lesion Description of Procedure the scabbed neoplasm on the right lateral leg of the patient was marked in the holding area. She was taken to the operating room and placed supine on the operating table. A time-out was held and confirmed. The site was carefully marked for excision and locally infiltrated with 1% lidocaine with epinephrine. The patient was position on her side exposing the site Hoffman the full- thickness skin ellipse was taken into the subcutaneous tissue and sent to pathology with a suture marking at 12:00 p.m. which was superior the pathologist at the tissue for over 40 minutes and reported it to be fully excised but she wanted to wait for permanent sections to determine the final diagnosis. the dimensions were transferred to the thigh and a marking was made for the full- thickness graft excision. This was infiltrated with 1% lidocaine with epinephrine. A split graft was harvested with a 15 blade from the thigh. The underlying tissue was discarded. The wound was closed with intradermal oa Vicryl suture without difficulty and a running 5 0 nylon. The graft was further defatted and inset with 5 0 nylon around the periphery and 5 0 nylon interrupted quilting stitches were placed across the middle portion of the graft. A bulky dressing with Mepilex silver sponge to the graft was applied covered with Coban from the ankle to the knee. The donor site was dressed with Xeroform and Kerlix sponges and a Tegaderm The patient tolerated this procedure well. He was discharged from the operating room in stable condition. She will be discharged home with a prescription for oxycodone 5/325 14. And cephalexin 500 mg t.i.d. 15. She was given IV Ancef 2 g preop Estimated Blood Loss 3 Drains No Packing No Pathology yes Complications No immediate complications Condition stable Disposition same day
== END 2020-08-27 13:10 | disposition home or self-care (01) ==
PROVIDERS: PCP Internal Medicine; Visit Provider Plastic Surgery
PROC: (CPT 11604; principal; 2020-08-27 10:00)
DX: C44.722 Squamous cell carcinoma of skin of right lower limb, including hip (principal); I10 Essential (primary) hypertension; E78.5 Hyperlipidemia, unspecified; E03.9 Hypothyroidism, unspecified; D51.3 Other dietary vitamin B12 deficiency anemia; G47.30 Sleep apnea, unspecified; Z79.82 Long term (current) use of aspirin; F17.210 Nicotine dependence, cigarettes, uncomplicated; E66.9 Obesity, unspecified; Z68.32 Body mass index [BMI] 32.0-32.9, adult
CPT/HCPCS: 11604; 15220; 88305; 88331; A9270; J0690; J2250; J2704; J3010; J7120

== ENCOUNTER 2020-11-24 11:26 | Outpatient (CLI) | payer MEDICARE, SELFPAY ==
--- NOTE | 2020-11-24 11:30 | ECG_ITS ---
Measurements Intervals [place] Rate: 66 P: 13 AR: 172 QRS: 1 QRSD: 87 T: 12 QT: 386 QTc: 407 Interpretive Statements SINUS RHYTHM LOW QRS VOLTAGE IN PRECORDIAL LEADS BASELINE ARTIFACT- I, III, AVL BORDERLINE ECG Electronically Signed On 11-24-2020 13:09:43 CDT by Tj Serra D.O.
[2020-11-24 12:05] LABS: Hematocrit 33.5 % (37.0-47.0); Hemoglobin 10.6 g/dL (12.0-15.0)
[2020-11-24 12:14] LABS: Anion Gap 10 mmol/L (8-16); Blood Urea Nitrogen 11 mg/dL (7-17); Calcium 10.1 mg/dL (8.4-10.2); Carbon Dioxide 25 mmol/L (22-30); Chloride 104 mmol/L (98-107); Estimated Glomerular Filt Rate > 60; Glucose 161 mg/dL (65-110); Potassium 3.3 mmol/L (3.4-5.0); Sodium 139 mmol/L (137-145)
== END 2020-11-24 11:27 | disposition home or self-care (01) ==
PROVIDERS: Anesthesiology; PCP Internal Medicine; Visit Provider Plastic Surgery
DX: Z01.818 Encounter for other preprocedural examination (principal); I10 Essential (primary) hypertension; D64.9 Anemia, unspecified; E78.5 Hyperlipidemia, unspecified
CPT/HCPCS: 36415; 80048; 85014; 85018; 93005

== ENCOUNTER 2020-11-26 02:49 | Day surgery (SDC) | payer MEDICARE, MEDICAID, SELFPAY ==
[2020-11-26] VITALS (10 sets, daily range): BP systolic 101–122; BP diastolic 55–72; PULSE 61–81; RESP 10–22; TEMP 36.4–37.3; O2SAT 93–96
--- NOTE | 2020-11-26 07:25 | WPDHPUPDATE1 ---
History and Physical Update Update Date/Time: 11/26/20 07:25 History and Physical has been reviewed, including an updated exam of the patient. There are NO changes in the patient's condition. Risks, benefits, and alternatives have been discussed and questions answered. Patient agrees to proceed with procedure.
--- NOTE | 2020-11-26 07:28 | WPDHPUPDATE1 ---
History and Physical Update Update Date/Time: 11/26/20 07:28 History and Physical has been reviewed, including an updated exam of the patient. There are NO changes in the patient's condition. Risks, benefits, and alternatives have been discussed and questions answered. Patient agrees to proceed with procedure.
--- NOTE | 2020-11-26 08:02 | WPDANESEPPF ---
Anes - Initial Pre Proc Eval Procedure: Operation Date: 11/26/20 09:30 Proposed Procedures p Excision Of Squamous Cell Carcinoma Right Lateral Leg With Frozen Section And Full Thickness Skin Graft Or Split Thickness Skin Graft, Excision Nodule Left Calf - Benjamin Sierra MD Date/Time: 11/26/20 08:02 Surgeon: Benjamin Sierra MD Pre Op Diagnosis: Sq Cell Ca Rt Lat Leg, Nodule Lt Calf Patient Data Age: 75 Gender: F Height: Weight: Allergies Allergy/AdvReac Type Severity Reaction Status Date / Time meperidine Allergy Severe Hallucinati Verified 11/24/20 09:51 ng codeine AdvReac Mild Itching Verified 11/24/20 09:51 NSAIDS (Non-Steroidal AdvReac Mild Gastrointestinal Verified 11/24/20 09:51 Anti-Inflamma Upset Home Medications Medication Instructions Recorded Confirmed Type acetaminophen 500 mg PO PRN PRN 11/28/18 11/24/20 History aspirin 81 mg PO QPM 11/28/18 11/24/20 History calcium carbonate-vitamin D3 1 cap PO DAILY 11/28/18 11/24/20 History carvedilol 6.25 mg PO BID 11/28/18 11/24/20 History hydrochlorothiazide 12.5 mg PO DAILY 11/28/18 11/24/20 History polysaccharide iron complex 150 mg PO BID 11/28/18 11/24/20 History [Ferrex 150] simvastatin 40 mg PO QPM 11/28/18 11/24/20 History levothyroxine 125 mcg PO DAILY 08/21/20 11/24/20 History ascorbic acid (vitamin C) 100 mg PO DAILY 11/24/20 11/24/20 History calcium 220 mg PO DAILY 11/24/20 11/24/20 History ergocalciferol (vitamin D2) 1,250 mcg PO WEEKLY 11/24/20 11/24/20 History [Vitamin D2] vitamin B complex [B 1 tablet PO DAILY 11/24/20 11/24/20 History Complex-Vitamin B12] Patient hx anesthesia problems: none Family hx anesthesia problems: none Results Review: All pre-operative results and documents have been reviewed as part of the pre-operative evaluation. 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levated blood lipids Family history of coronary artery disease Father Malignant neoplasm of prostate Patient's father is Sibling Malignant neoplasm of prostate Social History Social History Smoking packs per day: 0.5 Smoking cigarettes per day: 10.0 Years smoked: 50 Smoking pack-years: 25.00 Smoking status: Current every day smoker Tobacco type: cigarettes Second hand tobacco smoke exposure: No Additional smoking assessment comments: STATES 1/2PK/DAY/50+YRS Alcohol intake: never Substance use: never Substance use type: does not use Living arrangements: alone Gender identity (if verbalized by the patient): Female Sexual Orientation (if Verbalized by the Patient): Straight or Heterosexual Spiritual care concerns: No Agree to blood products: Yes Anes - Eval Final PreProcedure Day of Procedure 11/26/20 08:02 Patient weight: overweight Heart: regular rate and rhythm Lungs: clear to auscultation Airway: Mallampati scale class II Neurological: alert and oriented Last oral intake: >/= 8 hours ASA classification: III
[2020-11-26] MEDS: LACTATED RINGERS 1,000 ML 30 ML IV CONT ×2 (08:10→10:59)
[2020-11-26] MEDS: LIDO 1%/EPINEPHRINE 1:100,000 50 ML VIAL 20 ML INFILTRATE (09:47)
[2020-11-26] MEDS: ceFAZolin SODIUM 1 GM VIAL 2 GM IV PUSH (09:47)
[2020-11-26] MEDS: fentaNYL CITRATE INJ (*CRX) 100 MCG/2 ML VIAL 25 MCG IV PUSH ×2 (11:13→11:18)
[2020-11-26] MEDS: oxyCODONE HCL (*CRX) 2.5 MG TAB IR PO (12:25)
--- NOTE | 2020-11-26 14:44 | W.PM.PROC2 ---
Procedure Note - Detailed Date of Procedure 11/26/20 Pre-op Diagnosis Sq Cell Ca Rt Lat Leg, Nodule Lt Calf Post-op Diagnosis same Procedure Performed 3 cm excision of squamous cell carcinoma of the right lateral calf with frozen section and split-thickness skin graft 9 sq cm. 1.5 cm excision of keratotic neoplasm of unspecified behavior of the left calf with intermediate repair 3 cm. Surgeon Benjamin Sierra MD [employer] Byron greene Anesthesia general Description of Procedure the site on the right lateral leg and the left calf were marked on the patient's lower extremities in the holding area. She was rolled to the operating room where she was placed supine on the operating table and given general endotracheal anesthesia. She was then positioned onto her left side. All pressure points were padded. An axillary roll was placed. The lower extremities were prepped and draped in usual fashion to allow access to the 2 tumors and a right lateral thigh donor site. The 2 tumor sites were marked with a pen for incision. Each was infiltrated with 1% lidocaine with epinephrine. The larger mass on the right lateral calf was incised widely and taken off into the deep subcutaneous tissue near the deep fascia. The most superior aspect was marked with a suture for the 12 o'clock position. This tissue was sent to pathology for frozen section. The pathologist confirmed the diagnosis of squamous cell carcinoma and reported all margins to be free. While the specimen was out the smaller lesion on the right calf was excised with a 1.5 cm ellipse that specimen was sent for permanent section. The wound was closed with interrupted 2-0 Vicryl after undermining a cm peripherally at the level of the superficial fascia. The wound margins were coapted and the skin was closed with a running 4-0 nylon suture. The larger right lateral leg wound was closed by fashioning a split-thickness skin graft from the right lateral thigh. This was taken with the [place] dermatome to a depth 12,000 of an inch in thickness. The donor site was converted to a full-thickness wound and closed directly with 0 Vicryl and glue so that she would not have an open wound to deal with. The graft was meshed 1 to 1-1/[address] with 5-0 running nylon. The dressings on the left calf were Xeroform, 4 x 4 and Tegaderm. The dressing on the right thigh were 4 x 4 and Tegaderm. The dressing on the graft site were Mepilex Ag 4 x 4 Tegaderm and full lower leg Luke wrap. The patient was given 2 g of Ancef on the operating at the start of the case. She was discharged home with instructions in wound care and follow-up. She had a prescription for hydrocodone 5/325 number 12 and a prescription for cephalexin 500 mg 3 times a day for 5 days. Estimated Blood Loss 20 Tourniquet Time 0 Drains No Packing No Pathology yes Complications No immediate complications Condition stable Disposition PACU
== END 2020-11-26 13:03 | disposition home or self-care (01) ==
PROVIDERS: PCP Internal Medicine; Visit Provider Plastic Surgery
PROC: (CPT 11603; principal; 2020-11-26 09:30)
DX: C44.722 Squamous cell carcinoma of skin of right lower limb, including hip (principal); L57.0 Actinic keratosis; L90.5 Scar conditions and fibrosis of skin; I10 Essential (primary) hypertension; E78.5 Hyperlipidemia, unspecified; E03.9 Hypothyroidism, unspecified; G47.30 Sleep apnea, unspecified; D51.3 Other dietary vitamin B12 deficiency anemia; Z79.82 Long term (current) use of aspirin; F17.210 Nicotine dependence, cigarettes, uncomplicated
CPT/HCPCS: 11603; 15100; 11402; 12032; 88305; 88331; 88332; A9270; J0171; J0690; J1100; J2250; J2370; J2405; J2704; J3010; J7120

== ENCOUNTER 2020-12-08 12:59 | Emergency (ER) | payer MEDICARE, MEDICAID, SELFPAY ==
--- NOTE | ~2020-12-08 | CT_ITS ---
EXAMINATION: CT abdomen pelvis w con DATE: 12/08/2020 18:47 INDICATION: Epigastric abdominal pain, nausea TECHNIQUE: Computed tomography (CT) of the abdomen and pelvis was performed with 100 cc Omnipaque 350 intravenous contrast. Automated exposure control and iterative reconstruction technique were employe d. Exam dose: 1003.07 mGy-cm total exam DLP. COMPARISON: 04/09/2019 CTA chest abdomen pelvis FINDINGS: There is chronic discoid atelectasis and/or scarring at the lung bases. Heart size. No pericardial or pleural effusion. There are numerous hepatic cysts, largest situated in the lateral segment left hepatic lobe, measurin g approximately 2.6 cm. No suspicious hepatic lesion is identified. Status post cholecystectomy. No bile duct or pancreatic duct dilatation. No pancreatic mass lesion or calcification. Normal splenic size. Normal morphology of the adrenal glands. No renal mass lesion or urinary tract calculus or hydroureteronephrosis. The urinary bladder is unrem arkable. Status post hysterectomy. There is atherosclerotic calcification abdominal aorta but no aneurysm. No intraperitoneal or retrope ritoneal or pelvic mass lesion or adenopathy or ascites. There are numerous diverticula of the left colon; no CT evidence of diverticulitis. The appendix is n ot identified. No CT evidence of appendicitis or abscess. No bowel obstruction, bowel wall thickening , pneumatosis or intraperitoneal free air. Very small fat-containing umbilical hernia. Degenerative changes of the thoracic inlet spine including severe degenerative disc disease at L3-4 a nd L4-5, prominent degenerative change at the apophyseal joints of the lumbar spine. No spondylolisth esis. No suspicious osteolytic or osteoblastic lesions are noted. There is bilateral hip osteoarthritis, particularly severe on the right. IMPRESSION: Hepatic cysts Status post cholecystectomy Status post hysterectomy Diverticulosis of left colon; no CT evidence of diverticulitis Reviewed, dictated and finalized at [facility]. Reviewed, dictated and finalized at [facility].
--- NOTE | ~2020-12-08 | XR_ITS ---
XR chest 2V DATE: 12/08/2020 17:12 INDICATION: Dizziness. History of hypertension. TECHNIQUE: PA and lateral views COMPARISON: 04/26/2019 CT pulmonary scan 03/21/2018 2 view chest FINDINGS: Mild cardiac megaly. There is aortic calcification. No hilar or mediastinal enlargement. Minimal bilateral apical capping. Mild bilateral hyperinflation. No pulmonary infiltrate or consolida tion, pleural effusion or pulmonary vascular congestion or pneumothorax is detected. Diffuse osteopenia. Scoliosis and degenerative change of the thoracic spine. IMPRESSION: Mild cardiomegaly Aortic calcification No active pulmonary disease Reviewed, dictated and finalized at [facility].
--- NOTE | ~2020-12-08 | CT_ITS ---
EXAMINATION: CT brain wo con DATE: 12/08/2020 17:16 INDICATION: Dizziness TECHNIQUE: Computed tomography (CT) of the head was performed without intravenous contrast. The mA wa s adjusted according to patient size. Iterative reconstruction technique was employed. Exam dose: 60 5.33 mGy-cm total exam DLP. COMPARISON: 10/05/2010 CT brain FINDINGS: Bilateral carotid siphon internal carotid artery calcifications. There is nonspecific mild diminished attenuation cerebral white matter, likely due to chronic small v essel ischemic changes. No intracranial mass lesion or hemorrhage or cerebrovascular accident, midline shift or mass effect i s evident. Minimal basal ganglia calcification. No subdural or epidural hematoma is detected. No fracture or bone destruction of the cranial vault. Minimal ethmoid air cell opacification is noted bilaterally. Included paranasal sinuses and mastoid a ir cells are otherwise unremarkable. IMPRESSION: Cerebral atherosclerosis and chronic small vessel ischemic changes of cerebral white mat ter Reviewed, dictated and finalized at [facility]. Reviewed, dictated and finalized at [facility]. IMPRESSION: Cerebral atherosclerosis and chronic small vessel ischemic changes of cerebral white matter
[2020-12-08 13:17] VITALS: BP 128/65; PULSE 66; RESP 20; TEMP 36.8; O2SAT 97
--- NOTE | 2020-12-08 14:19 | ECG_ITS ---
Measurements Intervals [place] Rate: 67 P: 19 CO: 174 QRS: 2 QRSD: 87 T: -1 QT: 388 QTc: 411 Interpretive Statements SINUS RHYTHM LOW QRS VOLTAGE IN PRECORDIAL LEADS BORDERLINE T WAVE ABNORMALITY- INFERIOR LEADS BASELINE ARTIFACT- II, AVF BORDERLINE ECG Electronically Signed On 12-08-2020 15:10:24 CDT by Tj Serra D.O.
[2020-12-08 15:39] LABS: Add Urine Microscopic? YES; Appearance Urine Cloudy (Clear); Bacteria Urine Trace /hpf; Bilirubin Urine Negative (Negative); Blood Urine Negative (Negative); Color Urine Yellow (Yellow); Glucose Urine UA Negative (Negative); Ketones Urine Negative (Negative); Leukocyte Esterase Ur Negative LEU/UL (Negative); Mucus Urine Rare /lpf; Nitrate Urine Negative (Negative); Protein Urine Negative (Negative); RBC Urine 0-2 /hpf (0-2); Specific Grav Ur 1.012 (1.001-1.035); Squamous Epithelial Cell Urine Few /hpf (Few); Urobilinogen Urine Negative mg/dL (<2.0); WBC Urine 0-3 /hpf
--- NOTE | 2020-12-08 16:16 | ED.DIZZY ---
HPI - Dizziness General Chief Complaint: Dizziness Stated Complaint: DIZZINESS Time Seen by Provider: 12/08/20 15:55 Source: patient Mode of arrival: EMS Limitations: no limitations History of Present Illness HPI Narrative: This is a 75-year-old female that presents to the emergency department for an episode of dizziness today. Reports she was walking in her kitchen and suddenly had an episode of room spinning dizziness. Associated with nausea. Reports this lasted for about 5 minutes and resolved on its own. She did call EMS who gave her a dose of Zofran in route. Reports her dizziness has resolved. But reports now she is having epigastric abdominal discomfort. Denies fever, chest pain, shortness of breath, vomiting, diarrhea, or dysuria. Related Data Home Medications Medication Instructions Recorded Confirmed acetaminophen 500 mg PO PRN PRN 11/28/18 11/26/20 aspirin 81 mg PO QPM 11/28/18 11/26/20 calcium carbonate-vitamin D3 1 cap PO DAILY 11/28/18 11/26/20 carvedilol 6.25 mg PO BID 11/28/18 11/26/20 hydrochlorothiazide 12.5 mg PO DAILY 11/28/18 11/26/20 polysaccharide iron complex 150 mg PO BID 11/28/18 11/26/20 [Ferrex 150] simvastatin 40 mg PO QPM 11/28/18 11/26/20 levothyroxine 125 mcg PO DAILY 08/21/20 11/26/20 ascorbic acid (vitamin C) 100 mg PO DAILY 11/24/20 11/26/20 calcium 220 mg PO DAILY 11/24/20 11/26/20 ergocalciferol (vitamin D2) 1,250 mcg PO WEEKLY 11/24/20 11/26/20 vitamin B complex [B 1 tablet PO DAILY 11/24/20 11/26/20 Complex-Vitamin B12] Allergies Allergy/AdvReac Type Severity Reaction Status Date / Time meperidine Allergy Severe Hallucinati Verified 12/08/20 16:31 ng codeine AdvReac Mild Itching Verified 12/08/20 16:31 NSAIDS (Non-Steroidal AdvReac Mild Gastrointestinal Verified 12/08/20 16:31 Anti-Inflamma Upset Review of Systems Review of Systems: CONSTITUTIONAL: Denies fever EYES: Denies visual changes CARDIOVASCULAR: Denies chest pain, or edema. RESPIRATORY: Denies dyspnea. GASTROINTESTINAL: Reports abdominal pain, nausea. Denies vomiting, or diarrhea. GENITOURINARY: Denies dysuria NEUROLOGIC: Denies headache, numbness, or weakness. 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levated blood lipids Family history of coronary artery disease Father Malignant neoplasm of prostate Patient's father is Sibling Malignant neoplasm of prostate Social History Social History Smoking packs per day: 0.5 Smoking cigarettes per day: 10.0 Years smoked: 50 Smoking pack-years: 25.00 Smoking status: Current every day smoker Tobacco type: cigarettes Second hand tobacco smoke exposure: No Additional smoking assessment comments: STATES 1/2PK/DAY/50+YRS Alcohol intake: never Substance use: never Substance use type: does not use Gender identity (if verbalized by the patient): Female Sexual Orientation (if Verbalized by t
[2020-12-08 16:25] VITALS: BP 128/76; PULSE 67; RESP 18; TEMP 36.5; O2SAT 96
[2020-12-08 16:42] LABS: Basophils Absolute Auto 0.1 K/mm3 (0.0-0.1); Basophils Percent Auto 0.7 % (0.2-1.2); Eosinophils Absolute Auto 0.5 K/mm3 (0-0.3); Eosinophils Percent Auto 7.2 % (0-4.4); Hematocrit 34.3 % (37.0-47.0); Hemoglobin 10.9 g/dL (12.0-15.0); Immature Granulocyte Absolute 0.03 K/mm3 (0.00-0.031); Immature Granulocyte Percent A 0.4 % (0-0.5); Lymphocytes Absolute Auto 1.07 K/mm3 (0.9-3.2); Mean Corpuscular HGB Conc 31.8 g/dl (32-36); Mean Corpuscular Volume 88.2 fl (80-100); Mean Platelet Volume 9.6 fl (7.4-10.4); Monocytes Absolute Auto 0.6 K/mm3 (0.1-0.6); Monocytes Percent Auto 8.4 % (2.6-8.5); Neutrophils Absolute Auto 4.9 K/mm3 (1.3-6.7); Neutrophils Percent Auto 68.3 % (45.5-73.1); Platelet Count Result 349 k/mm3 (150-375); Red Blood Count 3.89 M/mm3 (4.2-5.4); Red Cell Distribution Width 14.4 % (11.5-14.5); White Blood Count 7.1 K/mm3 (4.5-10.0)
[2020-12-08] MEDS: PANTOPRAZOLE SODIUM IV 40 MG VIAL IV PUSH (16:45)
[2020-12-08] MEDS: SODIUM CHLORIDE 0.9% IV 500 ML 999 ML IV CONT (16:45)
[2020-12-08 16:53] LABS: Prothrombin Time 12.8 Seconds (11.1-14.7)
[2020-12-08 16:54] LABS: Partial Thromboplastin Time 31.1 SECONDS (22.3-36.8)
[2020-12-08 17:12] LABS: Alanine Aminotransferase 19 U/L (4-35); Albumin Level 4.7 g/dL (3.5-5.1); Alkaline Phosphatase 90 U/L (38-126); Anion Gap 7 mmol/L (8-16); Aspartate Amino Transferase 19 U/L (14-36); Bilirubin,Total 0.4 mg/dL (0.2-1.3); Blood Urea Nitrogen 15 mg/dL (7-17); Calcium 10.9 mg/dL (8.4-10.2); Carbon Dioxide 28 mmol/L (22-30); Chloride 103 mmol/L (98-107); Estimated CRCL calculation 54 ml/min; Estimated Glomerular Filt Rate > 60; Glucose 118 mg/dL (65-110); Lipase 88 U/L (23-300); Potassium 3.9 mmol/L (3.4-5.0); Sodium 138 mmol/L (137-145)
[2020-12-08 17:23] LABS: Troponin I < 0.012 ng/mL (0.000-0.034)
[2020-12-08 17:50] VITALS: BP 118/74; PULSE 64
[2020-12-08 17:53] VITALS: BP 118/78; PULSE 64
[2020-12-08 17:55] VITALS: BP 112/75; PULSE 72
[2020-12-08 20:27] LABS: Troponin I < 0.012 ng/mL (0.000-0.034)
[2020-12-08 21:24] VITALS: BP 112/70; PULSE 70; RESP 16; TEMP 36.6; O2SAT 94
== END 2020-12-08 21:20 | disposition home or self-care (01) ==
PROVIDERS: Physician Assistant; Emergency Provider Emergency Medicine; PCP Internal Medicine
DX: R42 Dizziness and giddiness (principal); R10.13 Epigastric pain; I10 Essential (primary) hypertension; E78.5 Hyperlipidemia, unspecified; E03.9 Hypothyroidism, unspecified; G47.30 Sleep apnea, unspecified; Z85.828 Personal history of other malignant neoplasm of skin; D51.9 Vitamin B12 deficiency anemia, unspecified; F17.210 Nicotine dependence, cigarettes, uncomplicated; Z79.82 Long term (current) use of aspirin; K57.90 Diverticulosis of intestine, part unspecified, without perforation or abscess without bleeding; K76.89 Other specified diseases of liver; I67.2 Cerebral atherosclerosis; R94.31 Abnormal electrocardiogram [ECG] [EKG]
CPT/HCPCS: 36415; 70450; 71046; 74177; 80053; 81001; 83690; 84484; 85025; 85610; 85730; 93005; 96361; 96374; 96375; 99284; C9113; J0131; J7040; Q9967

== ENCOUNTER 2022-04-11 12:20 | Outpatient (CLI) | payer MEDICARE, MEDICAID, SELFPAY ==
--- NOTE | 2022-04-11 14:28 | WPDPFTINT ---
PFT Procedure Performed PFT Procedure Performed Spirometry with Pre/Post Bronchodilator Plethysmography (Lung Vol) Diffusing Cap (DLCO) Flow Vol Loop PFT Interpretation This is a pulmonary function test with pre and post-bronchodilator spirometry, plethysmography and diffusing capacity. The test was performed and results interpreted in accordance with the 2019 and 2005 ATS/ERS Task Force guidelines respectively using the Global Lung Function Initiative-2012 reference equations. Patient demonstrated good effort and cooperation. Reproducibility criteria were met. The quality of the pre bronchodilator spirometry maneuver was Grade A and post bronchodilator spirometry maneuver was Grade A. Findings: Spirometry: The contour the inspiratory and expiratory flow tracing are normal. The pre bronchodilator FVC is 2.36 L, 97% predicted. The pre bronchodilator FEV1 is 1.70 L, 91% predicted. The pre bronchodilator FEV1: FVC ratio 72%. The post bronchodilator FVC is 2.31 L, representing a 2% decrease. The post bronchodilator FEV1 is 1.70 L, representing no change. The post bronchodilator FEV1: FVC ratio is 74%. Plethysmography: The total lung capacity is 4.81 L, 102% predicted. The functional residual capacity is 2.82 L, 104% predicted. The residual volume is 2.44 L, 110% predicted. Diffusing capacity: The diffusing capacity unadjusted for hemoglobin and carboxyhemoglobin is 14.9, 79% predicted. The diffusing capacity adjusted for alveolar volume is 3.91, 92% predicted. Impression: The spirometry is normal without evidence of an obstructive abnormality. There is no significant improvement after inhaling a single dose of albuterol. The lung volumes are normal. The diffusing capacity is normal. There are no prior studies for comparison
--- NOTE | 2022-04-11 14:30 | WPDSIXMINUTE ---
Six Minute Walk Procedure Procedure Performed Pulmonary Stress Test (6 min walk) Six Minute Walk Six Minute Walk: This is a 6 minute walk test. The test was performed and interpreted in accordance with the 2014 ERS/ATS task force guidelines. Of note, this patient used a walker due to her hip pain Findings: The patient's resting room air oxygen saturation measured by pulse oximetry was 93% and heart rate was 71 bpm. Patient ambulated for 183 meters and oxygen saturation remained 93 to 94%. Heart rate at the end of the study was 89 bpm. The patient did not qualify for supplemental oxygen at rest or with ambulation. There are no prior studies for comparison.
== END 2022-04-11 12:21 | disposition home or self-care (01) ==
LOC: ANHPFT 12:22
PROVIDERS: PCP Internal Medicine; Visit Provider Nurse Practitioner
DX: J43.9 Emphysema, unspecified (principal)
CPT/HCPCS: 94060; 94618; 94726; 94729

== ENCOUNTER 2022-05-10 12:16 | Outpatient (CLI) | payer MEDICARE, MEDICAID, SELFPAY ==
--- NOTE | 2022-05-10 17:41 | WPDMETH ---
Methacholine Procedure Perform Procedure Performed Methacholine Challenge Methacholine Challenge Methacholine Challenge: This is a methacholine challenge test. The test was performed and interpreted in accordance with the 2017 ERS technical standard, endorsed by the ATS, using the GLI 2012 reference equations. Testing was performed with increasing doses of nebulized methacholine following a quadrupling dosage protocol. The methacholine dose was delivered via the [employer] nebulizer using a 1-minutes tidal breathing protocol. The best post-methacholine FEV1 values were used to determine the change from the post diluent FEV1. The delivered dose of methacholine was used to calculate the provocative dose causing a 20% fall in FEV1 (PD20). Findings: Baseline FEV1 1.76, 94% predicted. Post diluent FEV1 1.67 L Post 1.81 mcg methacholine FEV1 1.58 L, decreased 5% Post 7.26 mcg methacholine FEV1 1.59 L, decreased 4% Post 29.03 mcg methacholine FEV1 1.65 L, decreased 1% Post 116.1 mcg methacholine FEV1 1.40 L, decreased 16% Post 464.4 mcg methacholine FEV1 1.20 L, decreased 28% Post albuterol nebulization FEV1 1.57 L Impression: The PD20 is 183 mcg which is categorized as borderline airway hyperresponsiveness. There are no prior methacholine challenge studies for comparison
== END 2022-05-10 12:17 | disposition home or self-care (01) ==
LOC: ANHPFT 12:21
PROVIDERS: PCP Internal Medicine; Visit Provider Nurse Practitioner
DX: R06.09 Other forms of dyspnea (principal)
CPT/HCPCS: 94070; J7674

== ENCOUNTER 2022-07-26 09:52 | Inpatient (IN) | payer MEDICARE, MEDICAID, SELFPAY ==
[2022-07-26] VITALS (11 sets, daily range): BP systolic 101–140; BP diastolic 63–87; PULSE 61–76; RESP 14–21; TEMP 35.6–36.4; O2SAT 90–95; BMI 32.5
--- NOTE | ~2022-07-26 | CT_ITS ---
CT of the Abdomen and Pelvis: Indication: Abdominal pain Technique: 2.5 mm axial scans were obtained through the abdomen and pelvis following intravenous adm inistration of 100 cc of Omnipaque 350. Dose reduction technique was used on this scan by utilizing a utomated exposure control and iterative reconstruction technique. The dose-length product (DLP) was 5 94.96 mGy-cm. COMPARISON: 12/08/2020 Findings: Scans through the lung bases are unremarkable. Multiple hepatic cysts are present. Cholecystectomy clips are present. The spleen, pancreas, adrenals and kidneys are within normal limits. There are atherosclerotic calcifications of the aorta. No lym phadenopathy. No bowel obstruction or bowel wall thickening. There is no evidence to suggest acute appendicitis. Images through the pelvis were performed. Urinary bladder unremarkable. No adnexal mass seen. No asci shaun. Severe right hip joint osteoarthritis noted. Impression: No acute abnormality. Reviewed, dictated and finalized at [facility]. Impression: No acute abnormality.
[2022-07-26 10:23] LABS: Basophils Percent Auto 0.4 % (0.2-1.2); Eosinophils Absolute Auto 0.5 K/mm3 (0-0.3); Eosinophils Percent Auto 4.7 % (0-4.4); Hematocrit 40.5 % (37.0-47.0); Hemoglobin 13.5 g/dL (12.0-15.0); Immature Granulocyte Absolute 0.02 K/mm3 (0.00-0.031); Immature Granulocyte Percent A 0.2 % (0-0.5); Lymphocytes Absolute Auto 0.91 K/mm3 (0.9-3.2); Lymphocytes Percent Auto 9.3 % (18.3-44.2); Mean Corpuscular HGB Conc 33.3 g/dl (32-36); Mean Corpuscular Hemoglobin 28.2 pg (26-34); Mean Corpuscular Volume 84.7 fl (80-100); Mean Platelet Volume 10.1 fl (7.4-10.4); Monocytes Absolute Auto 0.7 K/mm3 (0.1-0.6); Monocytes Percent Auto 7.2 % (2.6-8.5); Neutrophils Absolute Auto 7.6 K/mm3 (1.3-6.7); Neutrophils Percent Auto 78.2 % (45.5-73.1); Platelet Count Result 279 k/mm3 (150-375); Red Blood Count 4.78 M/mm3 (4.2-5.4); Red Cell Distribution Width 14.2 % (11.5-14.5); White Blood Count 9.7 K/mm3 (4.5-10.0)
[2022-07-26 10:34] LABS: Alanine Aminotransferase 21 U/L (6-35); Albumin Level 4.4 g/dL (3.5-5.1); Alkaline Phosphatase 81 U/L (38-126); Anion Gap 7 mmol/L (8-16); Aspartate Amino Transferase 20 U/L (14-36); Bilirubin,Total 0.6 mg/dL (0.2-1.3); Blood Urea Nitrogen 13 mg/dL (7-17); Calcium 10.2 mg/dL (8.4-10.2); Carbon Dioxide 27 mmol/L (22-30); Chloride 103 mmol/L (98-107); Estimated CRCL calculation 57 ml/min; Estimated Glomerular Filt Rate > 60; Glucose 95 mg/dL (65-110); Lipase 77 U/L (23-300); Potassium 3.8 mmol/L (3.4-5.0); Sodium 137 mmol/L (137-145)
[2022-07-26 11:43] LABS: Appearance Urine Clear (Clear); Bilirubin Urine Negative (Negative); Blood Urine Negative (Negative); Color Urine Yellow (Yellow); Glucose Urine UA Negative (Negative); Ketones Urine Negative (Negative); Leukocyte Esterase Ur Negative LEU/UL (Negative); Nitrate Urine Negative (Negative); Protein Urine Negative (Negative); Specific Grav Ur 1.008 (1.001-1.035); Urobilinogen Urine 0.2 mg/dL (<2.0); pH Urine 6.5 (5.0-9.0)
[2022-07-26 11:48] LABS: Add Urine Microscopic? NO
[2022-07-26] MEDS: ONDANSETRON INJ 4 MG/2 ML VIAL IV PUSH (12:10)
[2022-07-26] MEDS: MORPHINE SULFATE (*CRX) 4 MG/ML INJ 2 MG IV PUSH (12:12)
--- NOTE | 2022-07-26 12:27 | ED.ABDPAIN ---
HPI - Abdominal Pain General Chief Complaint: Abdominal Pain Stated Complaint: abd pain Time Seen by Provider: 07/26/22 11:34 History of Present Illness HPI narrative: Pt presents with epigastric abdominal pain and vomiting. Pt says she has had intermittent pain in this area for tw weeks but it has been persistent and worse the last two days. Pt having intermittent nausea and vomiting. Pt denies diarrhea or fever. Related Data Home Medications Medication Instructions Recorded Confirmed carvedilol 6.25 mg tablet 6.25 mg PO BID 11/28/18 07/26/22 hydrochlorothiazide 12.5 mg capsule 12.5 mg PO DAILY 11/28/18 07/26/22 polysaccharide iron complex 150 mg 150 mg PO BID 11/28/18 07/26/22 iron capsule (Ferrex) simvastatin 40 mg tablet 40 mg PO QPM 11/28/18 07/26/22 ascorbic acid (vitamin C) 100 mg 500 mg PO DAILY 11/24/20 07/26/22 tablet vitamin B complex (B 1 tablet PO DAILY 11/24/20 07/26/22 Complex-Vitamin B12 tablet) cholecalciferol (vitamin D3) 1,250 1,000 unit PO DAILY 07/26/22 07/26/22 mcg (50,000 unit) capsule levothyroxine 137 mcg tablet 137 mcg PO DAILY 07/26/22 07/26/22 Allergies Allergy/AdvReac Type Severity Reaction Status Date / Time meperidine AdvReac Severe Hallucinati Verified 07/26/22 11:45 ng codeine AdvReac Mild Itching Verified 07/26/22 10:27 NSAIDS (Non-Steroidal AdvReac Mild Gastrointestinal Verified 07/26/22 10:27 Anti-Inflamma Upset Review of Systems Review of Systems: All systems reviewed & are unremarkable except as noted in HPI and below PMFSH Past Medical History Medical History (Updated 07/26/22 @ 14:28 by Bia Alaniz III, DO) Anemia Arthritis of right hip Bronchitis COPD (chronic obstructive pulmonary disease) DDD (degenerative disc disease) Endometriosis Hemorrhoid Hiatal hernia HTN (hypertension) Hyperlipidemia Hypothyroid Pancreatitis Presence of pancreatic duct stent 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 Vitamin B12 deficiency anemia, unspecified Surgical History Surgical History H/O discectomy H/O hemorrhoidectomy H/O skin graft FTSG on left lower leg History of cardiac catheterization with no blockages History of ERCP History of hysterectomy History of pancreatic surgery History of spinal surgery lumbar x2 History of surgical removal of skin lesion of skin cancer on left lower leg Hx of appendectomy Hx of cholecystectomy Family History Family History (Updated 07/26/22 @ 16:47 by Anu Chou RN) Mother Hypertension Diabetes mellitus Father Malignant neoplasm of prostate Patient's father is Sibling Malignant neoplasm of prostate Hodgkin disease Stomach cancer Heart aneurysm Grandparent Alcoholism Other Family history of coronary artery disease Family history of elevated blood lipids Social History Social History Smoking packs per day: 0.5 Smoking cigarettes per day: 10.0 Years smoked: 50 Smoking pack-years: 25.00 Smoking status: Former smoker Tobacco type: cigarettes Second hand tobacco smoke exposure: No Additional smoking assessment comments: STATES 1/2PK/DAY/50+YRS Alcohol intake: never Substance use: never Substance use type: does not use Lack of Transportation: No Lack of Food: Never True Current Housing: Decline to Answer Concerned About Future Housing: No Difficulty Paying Gas/Electric Bills: No Difficulty Paying for Meds: No Currently Unemployed: No Education: Decline to Answer Difficulty w/ Childcare or Family Care: No Living arrangements: alone Occupation/Education: retired Gender identity (if verbalized by the patient): Female Sexual Orientation (if Verbalized by the Patient): Straight or Heterosexual Spiritual care concerns: No Agree to blood products: Yes Exam Const: G
--- NOTE | 2022-07-26 12:30 | ECG_ITS ---
Measurements Intervals [place] Rate: 66 P: 21 OK: 177 QRS: -6 QRSD: 88 T: -3 QT: 396 QTc: 415 Interpretive Statements SINUS RHYTHM LOW QRS VOLTAGE IN PRECORDIAL LEADS [QRS DEFLECTION < 1.0 mV IN CHEST LEADS] COMPARED TO ECG 12/08/2020 14:54:00 NO SIGNIFICANT CHANGES Electronically Signed On 07-26-2022 16:20:44 CDT by Garrett Chambers M.D.
[2022-07-26 12:59] LABS: Troponin I < 0.012 ng/mL (0.000-0.034)
[2022-07-26] MEDS: FAMOTIDINE 20 MG/2 ML VIAL IV PUSH ×2 (13:56→20:22)
[2022-07-26] MEDS: DICYCLOMINE HCL INJ 20 MG/2 ML VIAL IM (14:01)
[2022-07-26] MEDS: SODIUM CHLORIDE 0.9% IV 1,000 ML 125 ML IV CONT (15:23)
--- NOTE | 2022-07-26 16:15 | ADMGEN ---
This patient, Jory Tucker, was admitted to 3 [facility] Surg Room 320-01. Patient/family oriented to hospital policies and general routines including ID bracelet, bed and alarms, visiting hours, pain management, procedures, bathroom and other care routines, personal items, smoking policy, room service/diet, and visiting hours. Information on how to activate the Rapid Response Team has been discussed. Patient/Family are encouraged to report perceived risks to care and to ask questions if they do not understand what they are told or what they should do. Report from Beatriz ORTEGA.
--- NOTE | 2022-07-26 21:50 | PM.IMHP ---
H&P: HPI History of Present Illness Date/Time: 07/26/22 21:50 Chief Complaint: Abdominal pain Narrative: This is a 77-year-old female patient who has a hiatal hernia. The patient came to the emergency room today with complaints of epigastric abdominal pain and vomiting. The patient did not notice any blood in her vomitus. The patient has been having epigastric pain on and off for approximately 2 weeks but has been more persistent and worse over the last 2 days. She has been having intermittent nausea and vomiting. She denies any fever chills. The patient stated she does not see a GI specialist on a routine basis. The patient does not take a PPI or any antacids. Her labs are unremarkable. Abdomen and pelvis CT was read as no acute abnormality. The patient was given morphine Zofran Pepcid and Bentyl in the emergency room. Initially the patient stated that she had no relief. Once I assessed her on the medical floor, she stated that most of the pain was gone. She stated she was somewhat tender in the epigastric area but is not having as much pain. The patient is being admitted to observation status on the date of service 07/26/2022. Review of Systems Review of Systems: All systems reviewed & are unremarkable except as noted in HPI and below Constitutional: Constitutional: Reports as per HPI and Reports no additional constitutional complaints Eyes: Eyes: Reports as per HPI and Reports no additional eye complaints ENT: Reports system reviewed and no additional complaints, except as documented and Reports Normal hearing present Cardiovascular: Cardiovascular: Reports no additional cardiovascular complaints Respiratory: Respiratory: Reports no additional respiratory complaints and Reports no additional respiratory complaints Gastrointestinal: Gastrointestinal: Reports as per HPI and Reports no additional gastrointestinal complaints Musculoskeletal: Musculoskeletal: Reports no additional musculoskeletal complaints Integumentary/Breasts: Skin/Breast: Reports system reviewed and no additional complaints, except as docu and Reports as per HPI Neurologic: Reports system reviewed and no additional complaints, except as documented, Reports as per HPI and Reports Normal hearing present Psychiatric: Psychiatric: Reports no additional psychiatric complaints and Reports as per HPI Endocrine: Endocrine: Reports no additional endocrine complaints Hematologic/Lymphatic: Hematologic/Lymphatic: Reports no additional hematologic/lymphatic complaints Allergic/Immunologic: Allergic/Immunologic: Reports no additional allergic/immunologic complaints [facility] Past Medical History Medical History (Updated 07/27/22 @ 00:50 by Laura A. Benhoff, BALLET SOLOIST) Anemia Arthritis of right hip Asthma Bronchitis COPD (chronic obstructive pulmonary disease) The patient denies DDD (degenerative disc disease) Endometriosis Hemorrhoid Hiatal hernia HTN (hypertension) Hyperlipidemia Hypothyroid Pancreatitis Presence of pancreatic duct stent This was subsequently removed. 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 Vitamin B12 deficiency anemia, unspecified Surgical History Surgical History H/O discectomy H/O hemorrhoidectomy H/O skin graft FTSG on left lower leg History of cardiac catheterization with no blockages History of ERCP History of hysterectomy History of pancreatic surgery History of spinal surgery lumbar x2 History of surgical removal of skin lesion of skin cancer on left lower leg Hx of appendectomy Hx of cholecystectomy Family History Family History Mother Hypertension Diabetes mellitus Father Malignant neoplasm of prostate Patient's father is Sibling Malignant neoplasm of prostate Hodgkin disease Stomach cancer Heart aneurysm Grandparent Alcoholism Other
[2022-07-27] VITALS (11 sets, daily range): BP systolic 100–149; BP diastolic 60–89; PULSE 68–77; RESP 16–25; TEMP 36.2–36.9; O2SAT 90–96
[2022-07-27] MEDS: WATER FOR IRRIGATION, STERILE 1,000 ML BOTTLE 1000 ML
[2022-07-27] MEDS: SODIUM CHLORIDE 0.9% IV 1,000 ML 125 ML IV CONT
[2022-07-27] MEDS: LEVOTHYROXINE SODIUM 112 MCG TABLET PO (06:11)
[2022-07-27] MEDS: LEVOTHYROXINE SODIUM 25 MCG TABLET PO (06:11)
--- NOTE | 2022-07-27 07:28 | WPDGICN ---
Assessment and Plan Assessment and plan (1) Asthma: Code(s): J45.909 - Unspecified asthma, uncomplicated Status: Acute Assessment and Plan: she has COPD but does not require home oxygen. (2) Iron deficiency anemia, unspecified: Code(s): D50.9 - Iron deficiency anemia, unspecified Status: Acute Assessment and Plan: Hemoglobin was 9.32 years ago but now is normal. She does take iron daily. (3) Abdominal pain: Code(s): R10.9 - Unspecified abdominal pain Status: Acute Assessment and Plan: As I mentioned she had severe pain in the epigastric area which has improved. CT scan did not show any explanation for her pain. It was unremarkable except for showing cholecystectomy clips. She is concerned about hiatal hernia. She has been told she has hiatal hernia she believes that this may be causing her acute symptoms. She has not seen a drug safety assistant in the past. It had been suggested to her that endoscopy would be helpful to explain her symptoms. GI Consult Note Consult date/time: 07/27/22 07:28 HPI: Jory Tucker is a 77 year old female Who presented emergency room with epigastric pain and vomiting. She has been doing this for about 2 weeks. She states that she has hiatal hernia. He was treated in the emergency room with Pepcid and Zofran and Bentyl without relief and subsequently was admitted. she denies dysphagia. Review of Systems Review of Systems: All systems reviewed & are unremarkable except as noted in HPI and below PMFSH Past Medical History Medical History Anemia Arthritis of right hip Asthma Bronchitis COPD (chronic obstructive pulmonary disease) The patient denies DDD (degenerative disc disease) Endometriosis Hemorrhoid Hiatal hernia HTN (hypertension) Hyperlipidemia Hypothyroid Pancreatitis Presence of pancreatic duct stent This was subsequently removed. 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 Vitamin B12 deficiency anemia, unspecified Surgical History Surgical History H/O discectomy H/O hemorrhoidectomy H/O skin graft FTSG on left lower leg History of cardiac catheterization with no blockages History of ERCP History of hysterectomy History of pancreatic surgery History of spinal surgery lumbar x2 History of surgical removal of skin lesion of skin cancer on left lower leg Hx of appendectomy Hx of cholecystectomy Family History Family History Mother Hypertension Diabetes mellitus Father Malignant neoplasm of prostate Patient's father is Sibling Malignant neoplasm of prostate Hodgkin disease Stomach cancer Heart aneurysm Grandparent Alcoholism Other Family history of coronary artery disease Family history of elevated blood lipids Social History Social History Social History: 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 Code status full code Smoking packs per day: 0.5 Smoking cigarettes per day: 10.0 Years smoked: 50 Smoking pack-years: 25.00 Smoking status: Former smoker Tobacco type: cigarettes Second hand tobacco smoke exposure: No Additional smoking assessment comments: STATES 1/2PK/DAY/50+YRS Alcohol intake: never Substance use: never Substance use type: does not use Lack of Transportation: No Lack of Food: Never True Current Housing: Decline to Answer Concerned About Future Housing: No Difficulty Paying Gas/Electric Bills: No Difficulty Paying for Meds: No Currently Unemployed: No Education: Decline to Answer Difficulty w/ Childcare or Family Care: No Living arrangements: alone Occupation/Education: retired Gender
[2022-07-27] MEDS: carvediloL 6.25 MG TABLET PO ×2 (08:55→20:54)
[2022-07-27] MEDS: hydroCHLOROthiazide 12.5 MG CAPSULE PO (08:56)
[2022-07-27] MEDS: VITAMIN B COMPLEX CAPSULE 1 CAP PO (08:56)
[2022-07-27] MEDS: FAMOTIDINE 20 MG/2 ML VIAL IV PUSH ×2 (08:56→20:54)
[2022-07-27] MEDS: DEXTROSE 5%/0.45% SOD CHL 1,000 ML 100 ML IV CONT (10:40)
[2022-07-27] MEDS: MORPHINE SULFATE (*CRX) 2 MG/ML INJ IV PUSH ×2 (10:40→17:39)
--- NOTE | 2022-07-27 13:11 | WPDPN ---
Progress Note: A&P Assessment and Plan (1) Abdominal pain: Code(s): R10.9 - Unspecified abdominal pain Status: Acute Assessment and Plan: CT scan offer sub no explanation for the patient's symptoms. The patient was given Bentyl in the emergency room. She was also given Pepcid. Please continue with Pepcid. GI consult has been placed. The patient denies any dark stools. However she is on iron. Continue with Zofran for the nausea and continue with IV fluids. Patient remains on clear liquid diet. May also consider Carafate. 07/27/2022 interval history: 77-year-old female presented with complaint epigastric pain persisting for some time, CT scan of abdomen did not show significant pathology, patient is treated with IV Pepcid, patient seen by GI recommended EGD to further evaluate, possibly tomorrow will continue to monitor and further recommendation to follow. (2) Asthma: Code(s): J45.909 - Unspecified asthma, uncomplicated Status: Acute Assessment and Plan: Patient denies any COPD and stated that she has not had any PFTs. The patient stated that she has seasonal allergies and sometime she uses albuterol when she had is wheezing. (3) Hyperlipidemia: Qualifiers: Hyperlipidemia type: unspecified Qualified Code(s): E78.5 - Hyperlipidemia, unspecified Code(s): E78.5 - Hyperlipidemia, unspecified Status: Chronic Assessment and Plan: Continue Zocor (4) Hypothyroid: Qualifiers: Hypothyroidism type: unspecified Qualified Code(s): E03.9 - Hypothyroidism, unspecified Code(s): E03.9 - Hypothyroidism, unspecified Status: Chronic Assessment and Plan: Continue levothyroxine and check thyroid level. (5) HTN (hypertension): Qualifiers: Hypertension type: unspecified Qualified Code(s): I10 - Essential (primary) hypertension Code(s): I10 - Essential (primary) hypertension Status: Chronic Assessment and Plan: Continue with hydrochlorothiazide and Coreg. Subjective Date/time seen: 07/27/22 13:11 Interval history: Abdominal pain HPI-Narrative: This is a 77-year-old female patient who has a hiatal hernia.? The patient came to the emergency room today with complaints of epigastric abdominal pain and vomiting.? The patient did not notice any blood in her vomitus.? The patient has been having epigastric pain on and off for approximately 2 weeks but has been more persistent and worse over the last 2 days.? She has been having intermittent nausea and vomiting.? She denies any fever chills.? The patient stated she does not see a GI specialist on a routine basis.? The patient does not take a PPI or any antacids.? Her labs are unremarkable.? Abdomen and pelvis CT was read as no acute abnormality.? The patient was given morphine Zofran Pepcid and Bentyl in the emergency room.? Initially the patient stated that she had no relief.? Once I assessed her on the medical floor, she stated that most of the pain was gone.? She stated she was somewhat tender in the epigastric area but is not having as much pain.? 07/27/2022 interval history: 77-year-old female presented with complaint epigastric pain persisting for some time, CT scan of abdomen did not show significant pathology, patient is treated with IV Pepcid, patient seen by GI recommended EGD to further evaluate, possibly tomorrow will continue to monitor and further recommendation to follow. Review of Systems Review of Systems: All systems reviewed & are unremarkable except as noted in HPI and below Constitutional: Constitutional: Reports no additional constitutional complaints Exam Narrative: Elderly frail Patient is comfortable, NAD HEENT: eyes are clear and none icteric LUNGS: Normal respiratory effort ABD: Distended Lower extremities: no edema SKIN: nonjaundiced Neuro: grossly intact. Objective Data Vital Signs Vital Signs: Vital Signs - 24 hr
[2022-07-27] MEDS: LACTATED RINGERS 1,000 ML 150 ML IV CONT (13:52)
[2022-07-27] MEDS: ONDANSETRON INJ 4 MG/2 ML VIAL IV PUSH ×2 (13:59→17:35)
--- NOTE | 2022-07-27 14:25 | WPDANESEPPF ---
Anes - Initial Pre Proc Eval Procedure: Operation Date: 07/27/22 15:00 Proposed Procedures p Esophagogastroduodenoscopy - Raimundo Escamilla MD Date/Time: 07/27/22 14:25 Surgeon: Zaki Singleton MD Pre Op Diagnosis: Abdominal Pain Patient Data Age: 77 Gender: F Height: 1.57 m Weight: 80.9 kg Last Vital Signs Temp 98.5 F 07/27/22 13:51 Pulse 72 07/27/22 13:51 Resp 17 07/27/22 13:51 BP 149/88 H 07/27/22 13:51 Pulse Ox 95 07/27/22 13:51 O2 Del Method Room Air 07/27/22 13:51 Allergies Allergy/AdvReac Type Severity Reaction Status Date / Time meperidine AdvReac Severe Hallucinati Verified 07/27/22 13:50 ng codeine AdvReac Mild Itching Verified 07/27/22 13:50 NSAIDS (Non-Steroidal AdvReac Mild Gastrointestinal Verified 07/27/22 13:50 Anti-Inflamma Upset Home Medications Medication Instructions Recorded Confirmed Type carvedilol 6.25 mg tablet 6.25 mg PO BID 11/28/18 07/26/22 History hydrochlorothiazide 12.5 mg capsule 12.5 mg PO DAILY 11/28/18 07/26/22 History polysaccharide iron complex 150 mg 150 mg PO BID 11/28/18 07/26/22 History iron capsule (Ferrex) simvastatin 40 mg tablet 40 mg PO QPM 11/28/18 07/26/22 History ascorbic acid (vitamin C) 100 mg 500 mg PO DAILY 11/24/20 07/26/22 History tablet vitamin B complex (B 1 tablet PO DAILY 11/24/20 07/26/22 History Complex-Vitamin B12 tablet) cholecalciferol (vitamin D3) 1,250 1,000 unit PO DAILY 07/26/22 07/26/22 History mcg (50,000 unit) capsule levothyroxine 137 mcg tablet 137 mcg PO DAILY 07/26/22 07/26/22 History Patient hx anesthesia problems: none Family hx anesthesia problems: none Results Review: All pre-operative results and documents have been reviewed as part of the pre-operative evaluation. [facility] Past Medical History Medical History Anemia Arthritis of right hip Asthma Bronchitis COPD (chronic obstructive pulmonary disease) The patient denies DDD (degenerative disc disease) Endometriosis Hemorrhoid Hiatal hernia HTN (hypertension) Hyperlipidemia Hypothyroid Pancreatitis Presence of pancreatic duct stent This was subsequently removed. 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 Vitamin B12 deficiency anemia, unspecified Surgical History Surgical History H/O discectomy H/O hemorrhoidectomy H/O skin graft FTSG on left lower leg History of cardiac catheterization with no blockages History of ERCP History of hysterectomy History of pancreatic surgery History of spinal surgery lumbar x2 History of surgical removal of skin lesion of skin cancer on left lower leg Hx of appendectomy Hx of cholecystectomy Family History Family History Mother Hypertension Diabetes mellitus Father Malignant neoplasm of prostate Patient's father is Sibling Malignant neoplasm of prostate Hodgkin disease Stomach cancer Heart aneurysm Grandparent Alcoholism Other Family history of coronary artery disease Family history of elevated blood lipids Social History Social History Social History: 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 Code status full code Smoking packs per day: 0.5 Smoking cigarettes per day: 10.0 Years smoked: 50 Smoking pack-years: 25.00 Smoking status: Former smoker Tobacco type: cigarettes Second hand tobacco smoke exposure: No Additional smoking assessment comments: STATES 1/2PK/DAY/50+YRS Alcohol intake: never Substance use: never Substance use type: does not use Lack of Transportation: No Lack of Food: Never True Current Housing: Decline to Answer Concerned About Future Housing: No Difficulty Paying
[2022-07-27] MEDS: SIMVASTATIN 20 MG TABLET 40 MG PO (17:35)
[2022-07-28] MEDS: ONDANSETRON INJ 4 MG/2 ML VIAL IV PUSH (03:53)
--- NOTE | 2022-07-28 04:01 | PC.NURSE ---
This pt was wondering the ball at shift change and went into [facility], which is a hospice room. When staff got there she was going through the cabinets and small fridge looking for snacks. Educted pt on why she is on clear liquids. Pt has had one episode of vomiting so far this shift.
[2022-07-28 06:00] VITALS: BP 132/82; PULSE 76; RESP 18; TEMP 36.9; O2SAT 98
[2022-07-28 06:37] LABS: Basophils Percent Auto 0.3 % (0.2-1.2); Eosinophils Absolute Auto 0.2 K/mm3 (0-0.3); Hematocrit 39.1 % (37.0-47.0); Hemoglobin 12.9 g/dL (12.0-15.0); Immature Granulocyte Absolute 0.03 K/mm3 (0.00-0.031); Immature Granulocyte Percent A 0.4 % (0-0.5); Lymphocytes Absolute Auto 0.75 K/mm3 (0.9-3.2); Lymphocytes Percent Auto 9.8 % (18.3-44.2); Mean Corpuscular Hemoglobin 28.2 pg (26-34); Mean Corpuscular Volume 85.6 fl (80-100); Mean Platelet Volume 9.9 fl (7.4-10.4); Monocytes Absolute Auto 0.5 K/mm3 (0.1-0.6); Monocytes Percent Auto 6.3 % (2.6-8.5); Neutrophils Absolute Auto 6.1 K/mm3 (1.3-6.7); Neutrophils Percent Auto 80.2 % (45.5-73.1); Platelet Count Result 239 k/mm3 (150-375); Red Blood Count 4.57 M/mm3 (4.2-5.4); Red Cell Distribution Width 14.1 % (11.5-14.5); White Blood Count 7.6 K/mm3 (4.5-10.0)
[2022-07-28] MEDS: ACETAMINOPHEN 500 MG TABLET PO ×2 (06:37→17:30)
[2022-07-28 06:53] LABS: Alanine Aminotransferase 20 U/L (6-35); Albumin Level 4.2 g/dL (3.5-5.1); Alkaline Phosphatase 74 U/L (38-126); Anion Gap 5 mmol/L (8-16); Aspartate Amino Transferase 20 U/L (14-36); Bilirubin,Total 0.8 mg/dL (0.2-1.3); Blood Urea Nitrogen 8 mg/dL (7-17); Calcium 9.7 mg/dL (8.4-10.2); Carbon Dioxide 28 mmol/L (22-30); Chloride 103 mmol/L (98-107); Estimated CRCL calculation 66 ml/min; Estimated Glomerular Filt Rate > 60; Glucose 169 mg/dL (65-110); Magnesium 1.8 mg/dL (1.6-2.3); Potassium 3.5 mmol/L (3.4-5.0); Sodium 136 mmol/L (137-145)
--- NOTE | 2022-07-28 06:53 | WPDGIPROGNO ---
Progress Note: A&P Assessment and Plan (1) Asthma: Code(s): J45.909 - Unspecified asthma, uncomplicated Status: Acute Assessment and Plan: she has COPD but does not require home oxygen. (2) Iron deficiency anemia, unspecified: Code(s): D50.9 - Iron deficiency anemia, unspecified Status: Acute Assessment and Plan: Hemoglobin was 9.32 years ago but now is normal. She does take iron daily. (3) Abdominal pain: Code(s): R10.9 - Unspecified abdominal pain Status: Acute Assessment and Plan: As I mentioned she had severe pain in the epigastric area which has improved. CT scan did not show any explanation for her pain. It was unremarkable except for showing cholecystectomy clips. She is concerned about hiatal hernia. She has been told she has hiatal hernia she believes that this may be causing her acute symptoms. 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 It had been suggested to her that endoscopy would be helpful to explain her symptoms. Her EGD did not show a significant hiatal hernia but did reveal gastritis. She has persistent nausea and some vomiting. Biopsies of the Stomachare still pending, though she was negative for H pylori. (4) Nausea and vomiting: Code(s): R11.2 - Nausea with vomiting, unspecified Status: Acute Assessment and Plan: she remains nauseated. She vomited about 1 hour ago even though she had had Zofran during the night. No abdominal pain today. Still awaiting results of gastric biopsies. She also has a headache and she states that she frequently gets headaches but does not classically have nausea and vomiting with headaches. (5) Headache: Code(s): R51.9 - Headache, unspecified Status: Acute Assessment and Plan: this morning she has a headache and thinks that may be part of the reason she is vomiting again. She however gets headaches frequently without nausea and vomiting at home Plan will continue to treat for symptoms of nausea and vomiting. Awaiting results of gastric biopsies. Subjective Date/time seen: 07/28/22 06:53 she is still quite nauseated. She apparently had Zofran around 4:00 a.m. but has vomited just a little while ago. She also has a headache now. She states that she frequently gets headaches. She does not usually have gastrointestinal symptoms at the same time as her headaches. We discussed findings of her EGD, diffuse gastritis. H pylori was negative. Biopsies are pending. I reviewed her history to determine if there is something she is doing that caused her gastritis. She does not drink significant alcohol and does not use NSAIDs. Exam Const: General: cooperative, alert and average body habitus Nutritional Appearance: average body habitus Orientation/consciousness: patient oriented x3 Eyes: Conjunctivae: conjunctivae normal Resp: Auscultation: clear to auscultation bilaterally Cardio: Rhythm: regular rhythm GI: Inspection: normal to inspection and scar GI Palp: Yes Soft to palpation, Yes Tenderness to palpation present (GI) ( Minimal tenderness left lower quadrant) and No Guarding due to palpation present (GI) Auscultation: normal bowel sounds Neuro: General: patient oriented x3 Objective Data Vital Signs Vital Signs: Vital Signs - 24 hr 07/27/22 08:55 07/27/22 13:43 07/27/22 13:51 Temperature 36.2 C L 36.9 C Pulse Rate 73 72 72 Respiratory Rate 16 17 Blood Pressure 144/89 H 149/88 H Pulse Oximetry 94 95 Oxygen Delivery Room Air 07/27/22 14:50 07/27/22 15:00 07/27/22 15:10 Temperature Pulse Rate 72 69 68 Respiratory Rate 17 25 H 24 H Blood Pressure 105/65 121/69 123/72 Pulse Oximetry 92 92 92 Oxygen Delivery Room Air Room Air Room Air 07/27/22 14:00 07/27/22 08:50 07/27/22 22:00 Temperature 36.2 C L 36.2 C L Pulse Rate 72 71 Respiratory Rate 16 18 Blood Pressure 144/89 H 100/60 Pulse Oximetry 94 92 90 Oxy
--- NOTE | 2022-07-28 07:46 | WPDANESPN ---
Anes - Prog Note Post-Op Date/Time: 07/28/22 07:46 Cardiovascular status: normal Respiratory status: normal Airway patency: baseline Mental status: baseline Post-Op hydration status: normal Vital Signs: Last Vital Signs Temp 36.9 C 07/28/22 06:00 Pulse 76 07/28/22 06:00 Resp 18 07/28/22 06:00 BP 132/82 07/28/22 06:00 Pulse Ox 98 07/28/22 06:00 O2 Del Method Room Air 07/27/22 20:00 Pain Score (VAS): Patient asleep, no nonverbal signs of pain present at this time. I/O: Intake & Output 07/27/22 07/27/22 07/28/22 15:59 23:59 07:59 Intake Total 1100 300 550 Output Total 1000 900 300 Balance 100 -600 250 Laboratory Tests 07/28/22 06:17 07/28/22 06:17 07/28/22 06:17 WBC 7.6 RBC 4.57 Hgb 12.9 Hct 39.1 MCV 85.6 MCH 28.2 MCHC 33.0 RDW 14.1 Plt Count 239 MPV 9.9 Immature Gran % (Auto) 0.4 Neut % (Auto) 80.2 H Lymph % (Auto) 9.8 L Patrick % (Auto) 6.3 Eos % (Auto) 3.0 Baso % (Auto) 0.3 Lymph # (Auto) 0.75 L Patrick # (Auto) 0.5 Eos # (Auto) 0.2 Baso # (Auto) 0.0 Abs Immat Gran (auto) 0.03 Absolute Neuts (auto) 6.1 Absolute Nucleated RBC 0.0 Nucleated RBC % 0.0 Sodium 136 L Potassium 3.5 Chloride 103 Carbon Dioxide 28 Anion Gap 5 L BUN 8 D Creatinine 0.60 L Estim Creat Clear Calc 66 Estimated GFR > 60 Glucose 169 H Lactic Acid 1.0 Calcium 9.7 Magnesium 1.8 Total Bilirubin 0.8 AST 20 ALT 20 Alkaline Phosphatase 74 Total Protein 7.0 Albumin 4.2 TSH (Reflex) Pending Post-procedural complaints: none Patient Feedback: Patient satisfied with anesthetic care.
[2022-07-28 08:35] VITALS: PULSE 64; O2SAT 97
[2022-07-28] MEDS: carvediloL 6.25 MG TABLET PO (08:35)
[2022-07-28] MEDS: FAMOTIDINE 20 MG/2 ML VIAL IV PUSH (08:36)
[2022-07-28] MEDS: hydroCHLOROthiazide 12.5 MG CAPSULE PO (08:36)
[2022-07-28] MEDS: VITAMIN B COMPLEX CAPSULE 1 CAP PO (08:36)
[2022-07-28 14:00] VITALS: BP 122/69; PULSE 71; RESP 16; TEMP 37; O2SAT 94
--- NOTE | 2022-07-28 15:13 | PM.DS ---
DS: Admitting Diagnosis Discharge Date 07/28/2022 Admitting Diagnosis Abdominal pain DS: Discharge Diagnosis Discharge Diagnosis (1) Abdominal pain: Code(s): R10.9 - Unspecified abdominal pain Status: Acute Assessment and Plan: CT scan offer sub no explanation for the patient's symptoms. The patient was given Bentyl in the emergency room. She was also given Pepcid. Please continue with Pepcid. GI consult has been placed. The patient denies any dark stools. However she is on iron. Continue with Zofran for the nausea and continue with IV fluids. Patient remains on clear liquid diet. May also consider Carafate. 07/27/2022 interval history: 77-year-old female presented with complaint epigastric pain persisting for some time, CT scan of abdomen did not show significant pathology, patient is treated with IV Pepcid, patient seen by GI recommended EGD to further evaluate, possibly tomorrow will continue to monitor and further recommendation to follow. (2) Asthma: Code(s): J45.909 - Unspecified asthma, uncomplicated Status: Acute Assessment and Plan: Patient denies any COPD and stated that she has not had any PFTs. The patient stated that she has seasonal allergies and sometime she uses albuterol when she had is wheezing. (3) Hyperlipidemia: Qualifiers: Hyperlipidemia type: unspecified Qualified Code(s): E78.5 - Hyperlipidemia, unspecified Code(s): E78.5 - Hyperlipidemia, unspecified Status: Chronic Assessment and Plan: Continue Zocor (4) Hypothyroid: Qualifiers: Hypothyroidism type: unspecified Qualified Code(s): E03.9 - Hypothyroidism, unspecified Code(s): E03.9 - Hypothyroidism, unspecified Status: Chronic Assessment and Plan: Continue levothyroxine and check thyroid level. (5) HTN (hypertension): Qualifiers: Hypertension type: unspecified Qualified Code(s): I10 - Essential (primary) hypertension Code(s): I10 - Essential (primary) hypertension Status: Chronic Assessment and Plan: Continue with hydrochlorothiazide and Coreg. DS: Summary Hospital Course Reason for hospitalization: Abdominal pain Narrative: This is a 77-year-old female patient who has a hiatal hernia.? The patient came to the emergency room today with complaints of epigastric abdominal pain and vomiting.? The patient did not notice any blood in her vomitus.? The patient has been having epigastric pain on and off for approximately 2 weeks but has been more persistent and worse over the last 2 days.? She has been having intermittent nausea and vomiting.? She denies any fever chills.? The patient stated she does not see a GI specialist on a routine basis.? The patient does not take a PPI or any antacids.? Her labs are unremarkable.? Abdomen and pelvis CT was read as no acute abnormality.? The patient was given morphine Zofran Pepcid and Bentyl in the emergency room.? Initially the patient stated that she had no relief.? Once I assessed her on the medical floor, she stated that most of the pain was gone.? She stated she was somewhat tender in the epigastric area but is not having as much pain.? The patient is being admitted to observation status on the date of service 07/26/2022. Hospital Course: 77-year-old female presented with complaint epigastric pain persisting for some time, CT scan of abdomen did not show significant pathology, patient is treated with IV Pepcid, patient seen by GI recommended EGD to further evaluate, possibly tomorrow will continue to monitor and further recommendation to follow. patient had EGD showed nonerosive reflux disease, patient remains stable, seen by GI and clinically filibreto, will discharge today Time Spent with Patient Time attestation: Total time spent providing and/or coordinating discharge services: Exam Narrative: Elderly frail Patient is comfortable, NAD HEENT: eyes are jt
[2022-07-28] MEDS: SIMVASTATIN 20 MG TABLET 40 MG PO (17:26)
== END 2022-07-28 19:10 | disposition home or self-care (01) | DRG 392 ==
LOC: ANHED 14:28 → ANH3MEDSUR 15:43
PROVIDERS: Emergency Medicine; Internal Medicine Gastroenterology; Nurse Practitioner; Admitting Provider Internal Medicine; Emergency Provider Emergency Medicine; PCP Internal Medicine; Visit Provider Family Medicine
PROC: 0DJ08ZZ Inspection of Upper Intestinal Tract, Via Natural or Artificial Opening Endoscopic (ICD-10-PCS; CPT 43235; principal; 2022-07-27 15:00)
DX: K29.70 Gastritis, unspecified, without bleeding (principal); K44.9 Diaphragmatic hernia without obstruction or gangrene; K21.9 Gastro-esophageal reflux disease without esophagitis; M13.851 Other specified arthritis, right hip; J44.9 Chronic obstructive pulmonary disease, unspecified; I10 Essential (primary) hypertension; E78.5 Hyperlipidemia, unspecified; E03.9 Hypothyroidism, unspecified; G47.30 Sleep apnea, unspecified; D50.9 Iron deficiency anemia, unspecified; D51.9 Vitamin B12 deficiency anemia, unspecified; E66.9 Obesity, unspecified; Z68.32 Body mass index [BMI] 32.0-32.9, adult; Z85.89 Personal history of malignant neoplasm of other organs and systems; Z85.828 Personal history of other malignant neoplasm of skin; Z90.49 Acquired absence of other specified parts of digestive tract; Z87.891 Personal history of nicotine dependence
CPT/HCPCS: 36415; 74177; 80053; 81003; 83605; 83690; 83735; 84443; 84484; 85025; 87081; 88305; 88342; 93005; 96361; 96372; 96374; 96375; 96376; 99285; A9270; G0378; J0500; J2270; J2405; J2704; J7030; J7120; Q9967

== ENCOUNTER 2022-08-19 01:25 | Day surgery (SDC) | payer MEDICARE, MEDICAID, SELFPAY ==
[2022-08-08 14:26] VITALS: BMI 31.1
[2022-08-19 10:38] VITALS: BP 142/109; PULSE 68; RESP 16; TEMP 36.6; O2SAT 94
[2022-08-19] MEDS: LACTATED RINGERS 1,000 ML 150 ML IV CONT (10:49)
[2022-08-19 10:50] LABS: Glucose Point of Care 116 mg/dl (65-105)
--- NOTE | 2022-08-19 11:19 | WPDANESEPPF ---
Anes - Initial Pre Proc Eval Procedure: Operation Date: 08/19/22 11:30 Proposed Procedures p Colonoscopy - Raimundo Escamilla MD Date/Time: 08/19/22 11:19 Surgeon: Raimundo Escamilla MD Pre Op Diagnosis: Iron Deficiency Anemia Patient Data Age: 77 Gender: F Height: 1.57 m Weight: 76.7 kg Last Vital Signs Temp 97.8 F 08/19/22 10:38 Pulse 68 08/19/22 10:38 Resp 16 08/19/22 10:38 BP 142/109 H 08/19/22 10:38 Pulse Ox 94 08/19/22 10:38 O2 Del Method Room Air 08/19/22 10:38 Allergies Allergy/AdvReac Type Severity Reaction Status Date / Time meperidine AdvReac Severe Hallucinati Verified 08/19/22 10:37 ng codeine AdvReac Mild Itching Verified 08/19/22 10:37 NSAIDS (Non-Steroidal AdvReac Mild Gastrointestinal Verified 08/19/22 10:37 Anti-Inflamma Upset Home Medications Medication Instructions Recorded Confirmed Type carvedilol 6.25 mg tablet 6.25 mg PO BID 11/28/18 08/08/22 History hydrochlorothiazide 12.5 mg capsule 12.5 mg PO DAILY 11/28/18 08/08/22 History polysaccharide iron complex 150 mg 150 mg PO BID 11/28/18 08/08/22 History iron capsule (Ferrex) simvastatin 40 mg tablet 40 mg PO QPM 11/28/18 08/08/22 History ascorbic acid (vitamin C) 100 mg 500 mg PO DAILY 11/24/20 08/08/22 History tablet vitamin B complex (B 1 tablet PO DAILY 11/24/20 08/08/22 History Complex-Vitamin B12 tablet) cholecalciferol (vitamin D3) 1,250 1,000 unit PO DAILY 07/26/22 08/08/22 History mcg (50,000 unit) capsule levothyroxine 137 mcg tablet 137 mcg PO DAILY 07/26/22 08/08/22 History metformin 500 mg tablet 500 mg PO BID 08/08/22 08/08/22 History Laboratory Tests 08/19/22 10:47 POC Capillary Glucose 116 H mg/dl (65-105) Patient hx anesthesia problems: none Family hx anesthesia problems: none Results Review: All pre-operative results and documents have been reviewed as part of the pre-operative evaluation. FOR[facility]LY [facility] Past Medical History Medical History Anemia Arthritis of right hip Asthma Bronchitis COPD (chronic obstructive pulmonary disease) The patient denies DDD (degenerative disc disease) Endometriosis Hemorrhoid Hiatal hernia HTN (hypertension) Hyperlipidemia Hypothyroid Pancreatitis Presence of pancreatic duct stent This was subsequently removed. 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 Vitamin B12 deficiency anemia, unspecified Surgical History Surgical History H/O discectomy H/O hemorrhoidectomy H/O skin graft FTSG on left lower leg History of cardiac catheterization with no blockages History of ERCP History of hysterectomy History of pancreatic surgery History of spinal surgery lumbar x2 History of surgical removal of skin lesion of skin cancer on left lower leg Hx of appendectomy Hx of cholecystectomy Family History Family History Mother Hypertension Diabetes mellitus Father Malignant neoplasm of prostate Patient's father is Sibling Malignant neoplasm of prostate Hodgkin disease Stomach cancer Heart aneurysm Grandparent Alcoholism Other Family history of coronary artery disease Family history of elevated blood lipids Social History Social History Social History: 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 Code status full code Smoking packs per day: 0.5 Smoking cigarettes per day: 10.0 Years smoked: 50 Smoking pack-years: 25.00 Smoking status: Never smoker Tobacco type: cigarettes Second hand tobacco smoke exposure: No Additional smoking assessment comments: STATES 1/2PK/DAY/50+YRS Alcohol intake: never Substance use: never Substance use type: does not use L
--- NOTE | 2022-08-19 11:37 | PM.HPGS ---
History of Present Illness History of Present Illness Consent: Risks, benefits, and alternatives have been discussed and questions answered. Patient agrees to proceed with procedure. Chief complaint: Iron Deficiency Anemia Narrative: Jory Tukcer is a 77 year old female With a history of iron deficiency anemia. She also has had polyps removed in the past. Review of Systems Review of Systems: All systems reviewed & are unremarkable except as noted in HPI and below PMFSH Past Medical History Medical History Anemia Arthritis of right hip Asthma Bronchitis COPD (chronic obstructive pulmonary disease) The patient denies DDD (degenerative disc disease) Endometriosis Hemorrhoid Hiatal hernia HTN (hypertension) Hyperlipidemia Hypothyroid Pancreatitis Presence of pancreatic duct stent This was subsequently removed. 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 Vitamin B12 deficiency anemia, unspecified Surgical History Surgical History H/O discectomy H/O hemorrhoidectomy H/O skin graft FTSG on left lower leg History of cardiac catheterization with no blockages History of ERCP History of hysterectomy History of pancreatic surgery History of spinal surgery lumbar x2 History of surgical removal of skin lesion of skin cancer on left lower leg Hx of appendectomy Hx of cholecystectomy Family History Family History Mother Hypertension Diabetes mellitus Father Malignant neoplasm of prostate Patient's father is Sibling Malignant neoplasm of prostate Hodgkin disease Stomach cancer Heart aneurysm Grandparent Alcoholism Other Family history of coronary artery disease Family history of elevated blood lipids Social History Social History Social History: 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 Code status full code Smoking packs per day: 0.5 Smoking cigarettes per day: 10.0 Years smoked: 50 Smoking pack-years: 25.00 Smoking status: Never smoker Tobacco type: cigarettes Second hand tobacco smoke exposure: No Additional smoking assessment comments: STATES 1/2PK/DAY/50+YRS Alcohol intake: never Substance use: never Substance use type: does not use Lack of Transportation: No Lack of Food: Never True Current Housing: Decline to Answer Concerned About Future Housing: No Difficulty Paying Gas/Electric Bills: No Difficulty Paying for Meds: No Currently Unemployed: No Education: Decline to Answer Difficulty w/ Childcare or Family Care: No Living arrangements: alone Occupation/Education: retired Gender identity (if verbalized by the patient): Female Sexual Orientation (if Verbalized by the Patient): Straight or Heterosexual Spiritual care concerns: No Agree to blood products: Yes Meds Home Medications and Allergies Home Medications Medication Instructions Recorded Confirmed Type carvedilol 6.25 mg tablet 6.25 mg PO BID 11/28/18 08/08/22 History hydrochlorothiazide 12.5 mg capsule 12.5 mg PO DAILY 11/28/18 08/08/22 History polysaccharide iron complex 150 mg 150 mg PO BID 11/28/18 08/08/22 History iron capsule (Ferrex) simvastatin 40 mg tablet 40 mg PO QPM 11/28/18 08/08/22 History ascorbic acid (vitamin C) 100 mg 500 mg PO DAILY 11/24/20 08/08/22 History tablet vitamin B complex (B 1 tablet PO DAILY 11/24/20 08/08/22 History Complex-Vitamin B12 tablet) cholecalciferol (vitamin D3) 1,250 1,000 unit PO DAILY 07/26/22 08/08/22 History mcg (50,000 unit) capsule levothyroxine 137 mcg tablet 137 mcg PO DAILY 07/26/22 08/08/22 History metformin 500 mg tablet 500 mg PO BID 08/08/22 08/08/22 History Allergie
[2022-08-19 11:40] VITALS: BP 105/68; PULSE 80; RESP 24; O2SAT 95
[2022-08-19 11:50] VITALS: BP 124/81; PULSE 80; RESP 22; O2SAT 95
[2022-08-19 12:00] VITALS: BP 124/81; PULSE 78; RESP 21; O2SAT 96
== END 2022-08-19 12:07 | disposition home or self-care (01) ==
PROVIDERS: PCP Internal Medicine; Visit Provider Internal Medicine Gastroenterology
PROC: 0DJD8ZZ Inspection of Lower Intestinal Tract, Via Natural or Artificial Opening Endoscopic (ICD-10-PCS; CPT 45378; principal; 2022-08-19 11:30)
DX: D50.9 Iron deficiency anemia, unspecified (principal); D12.4 Benign neoplasm of descending colon; K64.8 Other hemorrhoids; K57.30 Diverticulosis of large intestine without perforation or abscess without bleeding; I10 Essential (primary) hypertension; E78.5 Hyperlipidemia, unspecified; J45.909 Unspecified asthma, uncomplicated; E03.9 Hypothyroidism, unspecified; Z87.891 Personal history of nicotine dependence
CPT/HCPCS: 45380; 82948; 88305; J2704; J7120

== ENCOUNTER 2022-11-07 10:38 | Outpatient (CLI) | payer MEDICARE, MEDICAID, SELFPAY ==
[2022-11-07 11:01] LABS: Hematocrit 38.9 % (37.0-47.0); Hemoglobin 12.8 g/dL (12.0-15.0); Mean Corpuscular HGB Conc 32.9 g/dl (32-36); Mean Corpuscular Hemoglobin 28.3 pg (26-34); Mean Corpuscular Volume 86.1 fl (80-100); Mean Platelet Volume 9.6 fl (7.4-10.4); Platelet Count Result 279 k/mm3 (150-375); Red Blood Count 4.52 M/mm3 (4.2-5.4); Red Cell Distribution Width 14.2 % (11.5-14.5); White Blood Count 6.2 K/mm3 (4.5-10.0)
[2022-11-07 13:22] LABS: Iron 58 ug/dL (37-170)
[2022-11-07 13:23] LABS: Anion Gap 9 mmol/L (8-16); Blood Urea Nitrogen 12 mg/dL (7-17); Calcium 10.5 mg/dL (8.4-10.2); Carbon Dioxide 27 mmol/L (22-30); Chloride 102 mmol/L (98-107); Estimated Glomerular Filt Rate > 60; Glucose 124 mg/dL (65-110); Potassium 3.9 mmol/L (3.4-5.0); Sodium 138 mmol/L (137-145)
[2022-11-07 13:46] LABS: Percent Iron Saturation 17 % (20-50)
[2022-11-07 14:30] LABS: Folic Acid 12.6 ng/mL (2.76->20)
== END 2022-11-07 10:39 | disposition home or self-care (01) ==
PROVIDERS: PCP Internal Medicine; Visit Provider Internal Medicine Hematology & Oncology
DX: D50.9 Iron deficiency anemia, unspecified (principal)
CPT/HCPCS: 36415; 80048; 82607; 82728; 82746; 83540; 83550; 85027

== ENCOUNTER 2022-12-16 10:55 | Outpatient (CLI) | payer MEDICARE, MEDICAID, SELFPAY ==
--- NOTE | ~2022-12-16 | NM_ITS ---
EXAMINATION: NM parathyroid w imaging DATE: 12/16/2022 14:39 INDICATION: Hypercalcemia TECHNIQUE: 20.9 mCi Tc99m tetrofosmin (Myoview) was administered by intravenous route. Anterior image s of the neck were obtained at 10 minutes and 3 hours. COMPARISON: None. FINDINGS/IMPRESSION: There is no focus of persistent activity in the area of the thyroid or mediastinum to suggest parathy roid adenoma. Reviewed, dictated and finalized at location A. FOUNTAIN CLERK
== END 2022-12-16 10:56 | disposition home or self-care (01) ==
LOC: ANHIMG 10:57
PROVIDERS: PCP Internal Medicine; Visit Provider Internal Medicine Nephrology
DX: E83.52 Hypercalcemia (principal)
CPT/HCPCS: 78070; A9500

== ENCOUNTER 2023-01-09 11:15 | Outpatient (CLI) | payer MEDICARE, MEDICAID, SELFPAY ==
[2023-01-09 11:40] LABS: Hematocrit 40.9 % (37.0-47.0); Hemoglobin 13.4 g/dL (12.0-15.0); Mean Corpuscular HGB Conc 32.8 g/dl (32-36); Mean Corpuscular Hemoglobin 27.5 pg (26-34); Mean Corpuscular Volume 83.8 fl (80-100); Mean Platelet Volume 9.3 fl (7.4-10.4); Platelet Count Result 352 k/mm3 (150-375); Red Blood Count 4.88 M/mm3 (4.2-5.4); Red Cell Distribution Width 13.5 % (11.5-14.5); White Blood Count 7.5 K/mm3 (4.5-10.0)
[2023-01-09 13:17] LABS: Iron 57 ug/dL (37-170)
[2023-01-09 13:20] LABS: Anion Gap 9 mmol/L (8-16); Blood Urea Nitrogen 16 mg/dL (7-17); Calcium 10.9 mg/dL (8.4-10.2); Carbon Dioxide 27 mmol/L (22-30); Chloride 100 mmol/L (98-107); Estimated Glomerular Filt Rate > 60; Glucose 112 mg/dL (65-110); Potassium 4.2 mmol/L (3.4-5.0); Sodium 136 mmol/L (137-145)
[2023-01-09 13:26] LABS: Percent Iron Saturation 16 % (20-50)
[2023-01-09 15:32] LABS: Folic Acid 8.1 ng/mL (2.76->20)
== END 2023-01-09 11:16 | disposition home or self-care (01) ==
LOC: ANHLAB 11:18
PROVIDERS: PCP Internal Medicine; Visit Provider Internal Medicine Hematology & Oncology
DX: D50.9 Iron deficiency anemia, unspecified (principal)
CPT/HCPCS: 36415; 80048; 82607; 82728; 82746; 83540; 83550; 85027

== ENCOUNTER 2023-01-26 20:59 | Emergency (ER) | payer MEDICARE, MEDICAID, SELFPAY ==
[2023-01-26 21:01] VITALS: BP 146/91; PULSE 77; RESP 19; TEMP 37.1; O2SAT 94
--- NOTE | 2023-01-26 22:56 | ED.EPISTAXIS ---
HPI - Epistaxis General Chief complaint: Epistaxis Stated complaint: nose bleed Time Seen by Provider: 01/26/23 22:13 History of Present Illness HPI Narrative: 77-year-old female presenting to the emergency department for evaluation of epistaxis. Patient had a recent nose bleed and was seen by Dr. Morales. Patient has had [address] Morales. The patient states that she bent over earlier today and had some nose bleeding. Patient states that she did use her Afrin twice and by the time she arrived to the emergency department the bleeding was resolved. Related Data Home Medications Medication Instructions Recorded Confirmed carvedilol 6.25 mg tablet 6.25 mg PO BID 11/28/18 01/24/23 hydrochlorothiazide 12.5 mg capsule 12.5 mg PO DAILY 11/28/18 01/24/23 polysaccharide iron complex 150 mg 150 mg PO BID 11/28/18 01/24/23 iron capsule (Ferrex) simvastatin 40 mg tablet 40 mg PO QPM 11/28/18 01/24/23 vitamin B complex (B 1 tablet PO DAILY 11/24/20 01/24/23 Complex-Vitamin B12 tablet) cholecalciferol (vitamin D3) 1,250 1,000 unit PO DAILY 07/26/22 01/24/23 mcg (50,000 unit) capsule levothyroxine 137 mcg tablet 137 mcg PO DAILY 07/26/22 01/24/23 metformin 500 mg tablet 500 mg PO BID 08/08/22 01/24/23 Allergies Allergy/AdvReac Type Severity Reaction Status Date / Time meperidine AdvReac Severe Hallucinati Verified 01/26/23 21:04 ng codeine AdvReac Mild Itching Verified 01/26/23 21:04 NSAIDS (Non-Steroidal AdvReac Mild Gastrointestinal Verified 01/26/23 21:04 Anti-Inflamma Upset Review of Systems Review of Systems: All systems reviewed & are unremarkable except as noted in HPI and below PMFSH Past Medical History Medical History Anemia Arthritis of right hip Asthma Bronchitis COPD (chronic obstructive pulmonary disease) The patient denies DDD (degenerative disc disease) Endometriosis Hemorrhoid Hiatal hernia HTN (hypertension) Hyperlipidemia Hypothyroid Pancreatitis Presence of pancreatic duct stent This was subsequently removed. 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 Vitamin B12 deficiency anemia, unspecified Surgical History Surgical History H/O discectomy H/O hemorrhoidectomy H/O skin graft FTSG on left lower leg History of cardiac catheterization with no blockages History of ERCP History of hysterectomy History of pancreatic surgery History of spinal surgery lumbar x2 History of surgical removal of skin lesion of skin cancer on left lower leg Hx of appendectomy Hx of cholecystectomy Family History Family History Mother Hypertension Diabetes mellitus Father Malignant neoplasm of prostate Patient's father is Sibling Malignant neoplasm of prostate Hodgkin disease Stomach cancer Heart aneurysm Grandparent Alcoholism Other Family history of coronary artery disease Family history of elevated blood lipids Social History Social History Social History: 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 Code status full code Smoking packs per day: 0.5 Smoking cigarettes per day: 10.0 Years smoked: 50 Smoking pack-years: 25.00 Smoking status: Never smoker Tobacco type: cigarettes Second hand tobacco smoke exposure: No Additional smoking assessment comments: STATES 1/2PK/DAY/50+YRS Alcohol intake: never Substance use: never Substance use type: does not use Lack of Transportation: No Lack of Food: Never True Current Housing: Decline to Answer Concerned About Future Housing: No Difficulty Paying Gas/Electric Bills: No Difficulty Paying for Meds: No Currently Unemployed: No Education: Decline to Answer D
== END 2023-01-26 23:05 | disposition home or self-care (01) ==
PROVIDERS: Emergency Provider Emergency Medicine; PCP Internal Medicine
DX: R04.0 Epistaxis (principal); J44.9 Chronic obstructive pulmonary disease, unspecified; I10 Essential (primary) hypertension; E11.9 Type 2 diabetes mellitus without complications; E78.5 Hyperlipidemia, unspecified; E03.9 Hypothyroidism, unspecified; D51.9 Vitamin B12 deficiency anemia, unspecified; M16.11 Unilateral primary osteoarthritis, right hip; G47.30 Sleep apnea, unspecified; Z85.828 Personal history of other malignant neoplasm of skin; Z87.891 Personal history of nicotine dependence; Z90.710 Acquired absence of both cervix and uterus; Z90.49 Acquired absence of other specified parts of digestive tract; Z79.84 Long term (current) use of oral hypoglycemic drugs
CPT/HCPCS: 99281

== ENCOUNTER 2023-02-01 02:30 | Emergency (ER) | payer MEDICARE, MEDICAID, SELFPAY ==
[2023-02-01 02:35] VITALS: BP 111/88; PULSE 76; RESP 16; TEMP 36.4; O2SAT 94
[2023-02-01 07:23] VITALS: BP 133/96; PULSE 98; RESP 17; O2SAT 94
[2023-02-01 08:27] LABS: Basophils Absolute Auto 0.1 K/mm3 (0.0-0.1); Basophils Percent Auto 0.7 % (0.2-1.2); Eosinophils Absolute Auto 0.7 K/mm3 (0-0.3); Eosinophils Percent Auto 9.5 % (0-4.4); Immature Granulocyte Absolute 0.02 K/mm3 (0.00-0.031); Immature Granulocyte Percent A 0.3 % (0-0.5); Lymphocytes Absolute Auto 1.15 K/mm3 (0.9-3.2); Lymphocytes Percent Auto 15.7 % (18.3-44.2); Mean Corpuscular HGB Conc 31.6 g/dl (32-36); Mean Corpuscular Volume 85.4 fl (80-100); Mean Platelet Volume 9.5 fl (7.4-10.4); Monocytes Absolute Auto 0.6 K/mm3 (0.1-0.6); Neutrophils Absolute Auto 4.8 K/mm3 (1.3-6.7); Neutrophils Percent Auto 65.8 % (45.5-73.1); Platelet Count Result 324 k/mm3 (150-375); Red Blood Count 4.45 M/mm3 (4.2-5.4); White Blood Count 7.3 K/mm3 (4.5-10.0)
[2023-02-01 08:39] LABS: Partial Thromboplastin Time 32.3 SECONDS (22.3-36.8)
[2023-02-01 08:43] LABS: Alanine Aminotransferase 18 U/L (6-35); Albumin Level 4.5 g/dL (3.5-5.1); Alkaline Phosphatase 100 U/L (38-126); Anion Gap 10 mmol/L (8-16); Aspartate Amino Transferase 19 U/L (14-36); Bilirubin,Total 0.8 mg/dL (0.2-1.3); Blood Urea Nitrogen 21 mg/dL (7-17); Carbon Dioxide 24 mmol/L (22-30); Chloride 104 mmol/L (98-107); Estimated CRCL calculation 59 ml/min; Estimated Glomerular Filt Rate > 60; Glucose 136 mg/dL (65-110); Potassium 3.9 mmol/L (3.4-5.0); Sodium 138 mmol/L (137-145)
[2023-02-01 08:45] VITALS: BP 124/68; PULSE 99; RESP 22; O2SAT 95
--- NOTE | 2023-02-01 09:14 | ED.EPISTAXIS ---
HPI - Epistaxis General Chief complaint: Epistaxis Stated complaint: nose bleed Time Seen by Provider: 02/01/23 06:59 History of Present Illness HPI Narrative: Patient is a 77-year-old female who presents to the ER with epistaxis. This is been a recurrent or prolonged issue for her. She saw Dr. Morales and had cautery performed on the right side 2 weeks ago. She was told that if she requires another procedure would be in the OR as it was a posterior source. She reports she has had intermittent bleeding since then and it persisted yesterday so she came to the ER. She has history of anemia and is worried about blood loss. She would also like to have her procedure done incision is possible. She is looking for a 2nd opinion. Related Data Home Medications Medication Instructions Recorded Confirmed carvedilol 6.25 mg tablet 6.25 mg PO BID 11/28/18 01/24/23 hydrochlorothiazide 12.5 mg capsule 12.5 mg PO DAILY 11/28/18 01/24/23 polysaccharide iron complex 150 mg 150 mg PO BID 11/28/18 01/24/23 iron capsule (Ferrex) simvastatin 40 mg tablet 40 mg PO QPM 11/28/18 01/24/23 vitamin B complex (B 1 tablet PO DAILY 11/24/20 01/24/23 Complex-Vitamin B12 tablet) cholecalciferol (vitamin D3) 1,250 1,000 unit PO DAILY 07/26/22 01/24/23 mcg (50,000 unit) capsule levothyroxine 137 mcg tablet 137 mcg PO DAILY 07/26/22 01/24/23 metformin 500 mg tablet 500 mg PO BID 08/08/22 01/24/23 Allergies Allergy/AdvReac Type Severity Reaction Status Date / Time meperidine AdvReac Severe Hallucinati Verified 02/01/23 07:24 ng codeine AdvReac Mild Itching Verified 02/01/23 07:24 NSAIDS (Non-Steroidal AdvReac Mild Gastrointestinal Verified 02/01/23 07:24 Anti-Inflamma Upset Review of Systems Constitutional: Constitutional: Reports no additional constitutional complaints ENT: Reports epistaxis, Denies nasal congestion and Denies sore throat Respiratory: Respiratory: Reports no additional respiratory complaints Gastrointestinal: Gastrointestinal: Reports no additional gastrointestinal complaints PMFSH Past Medical History Medical History Anemia Arthritis of right hip Asthma Bronchitis COPD (chronic obstructive pulmonary disease) The patient denies DDD (degenerative disc disease) Endometriosis Hemorrhoid Hiatal hernia HTN (hypertension) Hyperlipidemia Hypothyroid Pancreatitis Presence of pancreatic duct stent This was subsequently removed. 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 Vitamin B12 deficiency anemia, unspecified Surgical History Surgical History H/O discectomy H/O hemorrhoidectomy H/O skin graft FTSG on left lower leg History of cardiac catheterization with no blockages History of ERCP History of hysterectomy History of pancreatic surgery History of spinal surgery lumbar x2 History of surgical removal of skin lesion of skin cancer on left lower leg Hx of appendectomy Hx of cholecystectomy Family History Family History Mother Hypertension Diabetes mellitus Father Malignant neoplasm of prostate Patient's father is Sibling Malignant neoplasm of prostate Hodgkin disease Stomach cancer Heart aneurysm Grandparent Alcoholism Other Family history of coronary artery disease Family history of elevated blood lipids Social History Social History Social History: 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 Code status full code Smoking packs per day: 0.5 Smoking cigarettes per day: 10.0 Years smoked: 50 Smoking pack-years: 25.00 Smoking status: Never smoker Tobacco type: cigarettes Second hand tobacco smoke exposure: No Additional smoking assessment
[2023-02-01 09:31] VITALS: BP 119/75; PULSE 92; RESP 24; O2SAT 95
== END 2023-02-01 09:39 | disposition home or self-care (01) ==
PROVIDERS: Emergency Provider Emergency Medicine; PCP Internal Medicine
DX: R04.0 Epistaxis (principal); I10 Essential (primary) hypertension; E78.5 Hyperlipidemia, unspecified; E03.9 Hypothyroidism, unspecified; D51.9 Vitamin B12 deficiency anemia, unspecified; Z90.710 Acquired absence of both cervix and uterus; Z87.891 Personal history of nicotine dependence
CPT/HCPCS: 36415; 80053; 85025; 85610; 85730; 99283

== ENCOUNTER 2023-02-03 20:49 | Emergency (ER) | payer MEDICARE, MEDICAID, SELFPAY ==
[2023-02-03 21:04] VITALS: BP 129/66; PULSE 72; RESP 20; TEMP 36.6; O2SAT 94
--- NOTE | 2023-02-04 00:19 | ED.GENADULT ---
HPI - General Adult General Chief complaint: Epistaxis Stated complaint: NOSEBLEED Time Seen by Provider: 02/03/23 23:58 History of Present Illness HPI narrative: The patient is a 77-year-old female who presents emergency department with chief complaint of nose bleed. Patient has been seen by ENT and is actually scheduled for a procedure later next week the patient states she had bleeding for several hours at home and decided to come to the emergency department. The patient sat in the lobby for several hours waiting for a room to come back and the bleeding subsequently has stopped. Related Data Home Medications Medication Instructions Recorded Confirmed carvedilol 6.25 mg tablet 6.25 mg PO BID 11/28/18 02/03/23 hydrochlorothiazide 12.5 mg capsule 12.5 mg PO DAILY 11/28/18 02/03/23 polysaccharide iron complex 150 mg 150 mg PO BID 11/28/18 02/03/23 iron capsule (Ferrex) simvastatin 40 mg tablet 40 mg PO QPM 11/28/18 02/03/23 vitamin B complex (B 1 tablet PO DAILY 11/24/20 02/03/23 Complex-Vitamin B12 tablet) levothyroxine 137 mcg tablet 137 mcg PO DAILY 07/26/22 02/03/23 metformin 500 mg tablet 500 mg PO BID 08/08/22 02/03/23 Allergies Allergy/AdvReac Type Severity Reaction Status Date / Time meperidine AdvReac Severe Hallucinati Verified 02/03/23 08:19 ng codeine AdvReac Mild Itching Verified 02/03/23 08:19 NSAIDS (Non-Steroidal AdvReac Mild Gastrointestinal Verified 02/03/23 08:19 Anti-Inflamma Upset Review of Systems Review of Systems: A 10 system review of systems was completed on the patient and is negative except for what is stated in the HPI. Nursing and ancillary documentation was reviewed. PENDING SALE TO [facility] Past Medical History Medical History Anemia Arthritis of right hip Asthma Bronchitis COPD (chronic obstructive pulmonary disease) The patient denies DDD (degenerative disc disease) Endometriosis Hemorrhoid Hiatal hernia HTN (hypertension) Hyperlipidemia Hypothyroid Pancreatitis Presence of pancreatic duct stent This was subsequently removed. 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 Vitamin B12 deficiency anemia, unspecified Surgical History Surgical History H/O discectomy H/O hemorrhoidectomy H/O skin graft FTSG on left lower leg History of cardiac catheterization with no blockages History of ERCP History of hysterectomy History of pancreatic surgery History of spinal surgery lumbar x2 History of surgical removal of skin lesion of skin cancer on left lower leg Hx of appendectomy Hx of cholecystectomy Family History Family History Mother Hypertension Diabetes mellitus Father Malignant neoplasm of prostate Patient's father is Sibling Malignant neoplasm of prostate Hodgkin disease Stomach cancer Heart aneurysm Grandparent Alcoholism Other Family history of coronary artery disease Family history of elevated blood lipids Social History Social History Social History: 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 Code status full code Smoking packs per day: 0.5 Smoking cigarettes per day: 10.0 Years smoked: 50 Smoking pack-years: 25.00 Smoking status: Never smoker Tobacco type: cigarettes Second hand tobacco smoke exposure: No Additional smoking assessment comments: STATES 1/2PK/DAY/50+YRS Alcohol intake: never Substance use: never Substance use type: does not use Do You Feel Safe in your Home?: Yes Lack of Transportation: No Lack of Food: Never True Current Housing: I Have Housing Concerned About Future Housing: No Difficulty Paying Gas/Electric Bills: No Difficult
[2023-02-04 00:25] VITALS: BP 138/82; PULSE 78; RESP 15; TEMP 36.6; O2SAT 100
== END 2023-02-04 00:27 | disposition home or self-care (01) ==
PROVIDERS: Emergency Provider Emergency Medicine; PCP Internal Medicine
DX: R04.0 Epistaxis (principal); J44.9 Chronic obstructive pulmonary disease, unspecified; I10 Essential (primary) hypertension; E03.9 Hypothyroidism, unspecified; E78.5 Hyperlipidemia, unspecified; K44.9 Diaphragmatic hernia without obstruction or gangrene; G47.30 Sleep apnea, unspecified; D51.9 Vitamin B12 deficiency anemia, unspecified; M16.11 Unilateral primary osteoarthritis, right hip; Z85.828 Personal history of other malignant neoplasm of skin; Z87.891 Personal history of nicotine dependence; Z90.710 Acquired absence of both cervix and uterus; Z90.49 Acquired absence of other specified parts of digestive tract; Z79.84 Long term (current) use of oral hypoglycemic drugs
CPT/HCPCS: 99282

== ENCOUNTER 2023-02-10 01:35 | Day surgery (SDC) | payer MEDICARE, MEDICAID, SELFPAY ==
[2023-02-07 11:07] VITALS: BMI 31.7
--- NOTE | 2023-02-07 11:19 | PC.NURSE ---
Report to the Outpatient Waiting Room, entrance under the green pavilion located off [facility], at time __0915 on date __02/10/23 . Planned Procedure Time: ___1115 . Time changes happen often and if your time is changed the preop area will call you the afternoon before. - You and your visitor will be asked to self-screen and do not enter if you have any COVID symptoms. - A mask is optional within the hospital at this time. Patients may have clear liquids (water, carbonated beverages, clear teas, apple juice) until 3 hours prior to surgery with a maximum of 20 ounces. - No food from midnight until time of surgery - Infants may have breast milk until 4 hours before surgery, formula 6 hours prior to surgery. - Children will be allowed to drink immediately following surgery. If applicable, please bring a bottle or sippy cup to assist with drinking. Juice, water, soda, and popsicles are readily available. For infants on formula, please bring formula the day of surgery. Pacifiers are allowed. Take the following medications with a SIP of water the morning of surgery: _CARVEDILOL, LEVOTHYROXINE, NASAL SPRAY__ DO NOT STOP ANY OF YOUR OTHER PRESCRIPTION MEDICATIONS PRIOR TO SURGERY ?EXCEPT THE FOLLOWING Medications to discontinue per ANESTHESIA - _VITAMINS OF TODAY, Date to take last dose 02/07/23_ Please no make-up, nail yi, hairspray, perfume, deodorant, or body powder the day of surgery. No jewelry (including any body piercings) or valuables the day of surgery, leave them at home. Please take a shower or bath the night before, or the morning of, surgery with an antibacterial soap. Wear comfortable, loose fitting clothing. Children are encouraged to wear pajamas. - Jewelry must be removed prior to entering the operating room. Rings and piercings that are not removed may be cut off. - The hospital will not accept responsibility for valuables. - Please leave all valuables, including medications, at home the day of surgery. If you are going home after surgery, a licensed auto haulaway driver must drive you home. - NO public transportation without another adult if you receive anesthesia. - We recommend that an adult stay with you for 24 hours following discharge. - We also recommend that you do not drive, make important decision, drink alcoholic beverages, or take any drugs that were not prescribed by your health care provider for at least 24 hours after your discharge time. For Pediatric surgeries, we recommend two adults accompany the child home. Follow any additional instructions given to you from your surgeon. If you or anyone in your household have experienced Covid symptoms in the past week, please notify your surgeon or the nurse liaison at the phone number below for possible testing. Telephone instructions given to _PATIENT_and asked if any additional questions and then verbalized understanding. Patient advised to call surgeon office or pre surgery nurse liaison [phone] if any additional questions.
--- NOTE | 2023-02-09 08:28 | PM.IMHP ---
H&P: HPI History of Present Illness Date/Time: 02/09/23 08:28 Chief Complaint: epistaxis Narrative: planned procedure Review of Systems Review of Systems: All systems reviewed & are unremarkable except as noted in HPI and below PMFSH Past Medical History Medical History Anemia Arthritis of right hip Asthma Bronchitis COPD (chronic obstructive pulmonary disease) The patient denies DDD (degenerative disc disease) Endometriosis Hemorrhoid Hiatal hernia HTN (hypertension) Hyperlipidemia Hypothyroid Pancreatitis Presence of pancreatic duct stent This was subsequently removed. 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 Vitamin B12 deficiency anemia, unspecified Surgical History Surgical History H/O discectomy H/O hemorrhoidectomy H/O skin graft FTSG on left lower leg History of cardiac catheterization with no blockages History of ERCP History of hysterectomy History of pancreatic surgery History of spinal surgery lumbar x2 History of surgical removal of skin lesion of skin cancer on left lower leg Hx of appendectomy Hx of cholecystectomy Family History Family History Mother Hypertension Diabetes mellitus Father Malignant neoplasm of prostate Patient's father is Sibling Malignant neoplasm of prostate Hodgkin disease Stomach cancer Heart aneurysm Grandparent Alcoholism Other Family history of coronary artery disease Family history of elevated blood lipids Social History Social History Social History: 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 Code status full code Smoking packs per day: 0.5 Smoking cigarettes per day: 10.0 Years smoked: 50 Smoking pack-years: 25.00 Smoking status: Former smoker Tobacco type: cigarettes Second hand tobacco smoke exposure: No Additional smoking assessment comments: STATES SMOKED 1/2PK/DAY/50+YRS Alcohol intake: never Substance use: never Substance use type: does not use Do You Feel Safe in your Home?: Yes Lack of Transportation: No Lack of Food: Never True Current Housing: I Have Housing Concerned About Future Housing: No Difficulty Paying Gas/Electric Bills: No Difficulty Paying for Meds: No Currently Unemployed: No Education: High School Diploma/GED Difficulty w/ Childcare or Family Care: No Living arrangements: alone Occupation/Education: retired Gender identity (if verbalized by the patient): Female Sexual Orientation (if Verbalized by the Patient): Straight or Heterosexual Spiritual care concerns: No Agree to blood products: Yes Meds Home Medications and Allergies Home Medications Medication Instructions Recorded Confirmed Type carvedilol 6.25 mg tablet 6.25 mg PO BID 11/28/18 02/07/23 History hydrochlorothiazide 12.5 mg capsule 12.5 mg PO DAILY 11/28/18 02/07/23 History polysaccharide iron complex 150 mg 150 mg PO BID 11/28/18 02/07/23 History iron capsule (Ferrex) simvastatin 40 mg tablet 40 mg PO QPM 11/28/18 02/07/23 History vitamin B complex (B 1 tablet PO DAILY 11/24/20 02/07/23 History Complex-Vitamin B12 tablet) levothyroxine 137 mcg tablet 137 mcg PO DAILY 07/26/22 02/07/23 History metformin 500 mg tablet 500 mg PO BID 08/08/22 02/07/23 History sodium chloride 0.65 % nasal spray 2 spray intranasal QID #88 mL 02/01/23 02/07/23 Rx aerosol (Saline Nasal) mupirocin 2 % topical ointment See Rx Instructions topical 02/03/23 02/07/23 Rx .COMPLEX #22 grams cholecalciferol (vitamin D3) 25 25 mcg PO DAILY 02/07/23 02/07/23 History mcg (1,000 unit) tablet Allergies Allergy/AdvReac Type Severity React
[2023-02-10] VITALS (12 sets, daily range): BP systolic 108–149; BP diastolic 65–93; PULSE 63–75; RESP 14–21; TEMP 36.4–37.1; O2SAT 90–98
--- NOTE | 2023-02-10 07:18 | WPDHPUPDATE1 ---
History and Physical Update Update Date/Time: 02/10/23 07:18 History and Physical has been reviewed, including an updated exam of the patient. There are NO changes in the patient's condition. Risks, benefits, and alternatives have been discussed and questions answered. Patient agrees to proceed with procedure.
[2023-02-10] MEDS: ACETAMINOPHEN 500 MG TABLET 1000 MG PO (10:25)
[2023-02-10] MEDS: LACTATED RINGERS 1,000 ML 30 ML IV CONT ×3 (10:30→13:42)
[2023-02-10 10:43] LABS: Glucose Point of Care 125 mg/dl (65-105)
--- NOTE | 2023-02-10 11:13 | WPDANESEPPF ---
Anes - Initial Pre Proc Eval Procedure: Operation Date: 02/10/23 11:15 Proposed Procedures p Bilateral Nasal Endoscopy with Nasal Cautery and Right Sphenopalatine Artery Ligation - Bayron Morin MD s Right Maxillary Antrostomy - Bayron Morin MD Date/Time: 02/10/23 11:13 Surgeon: Bayron Morin MD Pre Op Diagnosis: epistaxis Patient Data Age: 77 Gender: F Height: 1.6 m Weight: 80.95 kg Last Vital Signs Temp 37.1 C 02/10/23 09:28 Pulse 64 02/10/23 09:28 Resp 20 02/10/23 09:28 BP 130/76 02/10/23 09:28 Pulse Ox 96 02/10/23 09:28 O2 Del Method Room Air 02/10/23 09:28 Allergies Allergy/AdvReac Type Severity Reaction Status Date / Time meperidine AdvReac Severe Hallucinati Verified 02/10/23 09:31 ng codeine AdvReac Mild Itching Verified 02/10/23 09:31 NSAIDS (Non-Steroidal AdvReac Mild Gastrointestinal Verified 02/10/23 09:31 Anti-Inflamma Upset Home Medications Medication Instructions Recorded Confirmed Type carvedilol 6.25 mg tablet 6.25 mg PO BID 11/28/18 02/10/23 History hydrochlorothiazide 12.5 mg capsule 12.5 mg PO DAILY 11/28/18 02/10/23 History polysaccharide iron complex 150 mg 150 mg PO BID 11/28/18 02/10/23 History iron capsule (Ferrex) simvastatin 40 mg tablet 40 mg PO QPM 11/28/18 02/10/23 History vitamin B complex (B 1 tablet PO DAILY 11/24/20 02/10/23 History Complex-Vitamin B12 tablet) levothyroxine 137 mcg tablet 137 mcg PO DAILY 07/26/22 02/10/23 History metformin 500 mg tablet 500 mg PO BID 08/08/22 02/10/23 History sodium chloride 0.65 % nasal spray 2 spray intranasal QID #88 mL 02/01/23 02/10/23 Rx aerosol (Saline Nasal) mupirocin 2 % topical ointment See Rx Instructions topical 02/03/23 02/10/23 Rx .COMPLEX #22 grams cholecalciferol (vitamin D3) 25 25 mcg PO DAILY 02/07/23 02/10/23 History mcg (1,000 unit) tablet Laboratory Tests 02/10/23 10:36 POC Capillary Glucose 125 H mg/dl (65-105) Patient hx anesthesia problems: none Family hx anesthesia problems: none Results Review: All pre-operative results and documents have been reviewed as part of the pre-operative evaluation. [facility] Past Medical History Medical History Anemia Arthritis of right hip Asthma Bronchitis COPD (chronic obstructive pulmonary disease) The patient denies DDD (degenerative disc disease) Endometriosis Hemorrhoid Hiatal hernia HTN (hypertension) Hyperlipidemia Hypothyroid Pancreatitis Presence of pancreatic duct stent This was subsequently removed. 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 Vitamin B12 deficiency anemia, unspecified Surgical History Surgical History H/O discectomy H/O hemorrhoidectomy H/O skin graft FTSG on left lower leg History of cardiac catheterization with no blockages History of ERCP History of hysterectomy History of pancreatic surgery History of spinal surgery lumbar x2 History of surgical removal of skin lesion of skin cancer on left lower leg Hx of appendectomy Hx of cholecystectomy Family History Family History Mother Hypertension Diabetes mellitus Father Malignant neoplasm of prostate Patient's father is Sibling Malignant neoplasm of prostate Hodgkin disease Stomach cancer Heart aneurysm Grandparent Alcoholism Other Family history of coronary artery disease Family history of elevated blood lipids Social History Social History Social History: 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 Code status full code Smoking packs per day: 0.5 Smoking cigarettes per day: 10.0 Years smoked: 50 Smoking pack-years: 25.00 Smoking status: Former s
[2023-02-10] MEDS: ceFAZolin 2 GM/D5W 50 ML 2 GM/50 ML BAG IVPB (11:47)
[2023-02-10] MEDS: OXYMETAZOLINE HCL 0.05% NAS 15 ML BTL (*BKC) 1 SPRAY NASAL (12:05)
[2023-02-10 14:01] LABS: Glucose Point of Care 140 mg/dl (65-105)
--- NOTE | 2023-02-10 14:23 | P.OP_ITS ---
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 right maxillary antrostomy endoscopic Surgeon Bayron Morin MD Anesthesia General Indications See above Findings large vasculature bilaterally caudal cauterized the right sphenoid palatine region had a peaceful sating mass which began bleeding during the procedure had to cauterize the entire lesion a way to the skull base. Description of Procedure Patient identified consent verified preop. Patient brought operating. Time- out performed general anesthesia induced endotracheal tube secured. Patient prepped draped position procedure confirmed 2nd time-out performed. Afrin- soaked pledgets placed collar then removed. Bilateral abnormal vasculature cauterized with Bovie suction electrocautery and bipolar. Decision made very eyes investigating the right middle meatus when a pulsatile mass met Mass began bleeding. Afrin-soaked pledgets pledgets placed around this. Lesion was cauterized until it stopped bleeding it was still there pulsatile and leaking. Right maxillary antrostomy performed the back wall was written to fill the ethmoidalis. Sphenopalatine artery in the mass were cauterized until no longer existed. There is still some pulsation in the sphenopalatine canal. Posterior septal artery was also cauterized. Patient tolerated the procedure well blood loss 70 cc. Nova pack was placed in the cavity created from cautery. Care patient Anesthesiology performed all dictated portions procedure. Estimated Blood Loss 70 Drains No Packing Yes (Novapak) Pathology None sent Complications No immediate complications Condition Stable Disposition PACU [facility] Billing Surgery - Charge Forward: Surgery Billing
== END 2023-02-10 16:36 | disposition home or self-care (01) ==
PROVIDERS: PCP Internal Medicine; Visit Provider Otolaryngology
PROC: (CPT 31256; principal; 2023-02-10 11:15)
PROC: (CPT 31256; 2023-02-10 11:15)
DX: R04.0 Epistaxis (principal); Q27.39 Arteriovenous malformation, other site; J34.89 Other specified disorders of nose and nasal sinuses; I10 Essential (primary) hypertension; E78.5 Hyperlipidemia, unspecified; E03.9 Hypothyroidism, unspecified; D64.9 Anemia, unspecified; E53.8 Deficiency of other specified B group vitamins; Z87.891 Personal history of nicotine dependence; Z79.84 Long term (current) use of oral hypoglycemic drugs
CPT/HCPCS: 31256; 31241; 31238; 82948; A9270; J0690; J2405; J2704; J3010; J7120

== ENCOUNTER 2023-05-09 11:23 | Outpatient (CLI) | payer MEDICARE, MEDICAID, SELFPAY ==
[2023-05-09 11:43] LABS: Basophils Absolute Auto 0.1 K/mm3 (0.0-0.1); Basophils Percent Auto 0.8 % (0.2-1.2); Eosinophils Absolute Auto 0.5 K/mm3 (0-0.3); Eosinophils Percent Auto 8.4 % (0-4.4); Immature Granulocyte Absolute 0.01 K/mm3 (0.00-0.031); Immature Granulocyte Percent A 0.2 % (0-0.5); Lymphocytes Absolute Auto 1.34 K/mm3 (0.9-3.2); Lymphocytes Percent Auto 22.5 % (18.3-44.2); Mean Corpuscular HGB Conc 31.6 g/dl (32-36); Mean Corpuscular Hemoglobin 26.7 pg (26-34); Mean Corpuscular Volume 84.4 fl (80-100); Mean Platelet Volume 9.3 fl (7.4-10.4); Monocytes Absolute Auto 0.6 K/mm3 (0.1-0.6); Monocytes Percent Auto 9.6 % (2.6-8.5); Neutrophils Absolute Auto 3.5 K/mm3 (1.3-6.7); Neutrophils Percent Auto 58.5 % (45.5-73.1); Platelet Count Result 323 k/mm3 (150-375); Red Cell Distribution Width 15.4 % (11.5-14.5)
[2023-05-09 16:34] LABS: Iron 68 ug/dL (37-170)
[2023-05-09 17:44] LABS: Percent Iron Saturation 19 % (20-50)
[2023-05-09 18:29] LABS: Ferritin 9.18 ng/mL (11.1-264)
[2023-05-09 18:47] LABS: Folic Acid 7.9 ng/mL (2.76->20)
== END 2023-05-09 11:24 | disposition home or self-care (01) ==
LOC: ANHLAB 11:26
PROVIDERS: PCP Internal Medicine; Visit Provider Internal Medicine Hematology & Oncology
DX: D50.9 Iron deficiency anemia, unspecified (principal)
CPT/HCPCS: 36415; 82607; 82728; 82746; 83540; 83550; 85025

== ENCOUNTER 2023-07-07 07:19 | Outpatient (CLI) | payer MEDICARE, MEDICAID, SELFPAY ==
--- NOTE | ~2023-07-07 | CT_ITS ---
EXAMINATION: CTA neck DATE: 07/07/2023 07:45 INDICATION: Neoplasm of unspecified behavior of bone. Epistaxis. TECHNIQUE: Computed tomographic angiography (CTA) of the neck was performed with 100 mL Omnipaque-350 intravenous contrast. Automated exposure control and iterative reconstruction technique were employe d. The dose-length product was 616.43 mGy-cm. Maximum intensity projection 3D-reconstructions were cr eated by the technologist on a separate workstation. COMPARISON: Head CT 12/08/2020 FINDINGS: There is mild emphysema. Calcified mediastinal lymph nodes are consistent with old granulom atous disease. The orbits are normal. There is mucosal thickening in the paranasal sinuses. There is calcified atherosclerosis of the aorta and many of the other arteries. Left vertebral artery is domin ant. There is no significant stenosis of the vertebral arteries. There is mild plaque in the proximal internal carotid arteries. There is 0% stenosis of the proximal right internal carotid artery relati ve to normal distal artery lumen diameter (NASCET criteria). There is 0% stenosis of the proximal lef t internal carotid artery relative to normal distal artery lumen diameter. There are carious lesions of the 2 remaining right-sided maxillary teeth. The mastoid air cells are normal. There is severe cer vical and thoracic spondylosis. IMPRESSION: 1. No neoplasm identified. 2. 0% stenosis of the proximal internal carotid arteries relative to normal distal artery lumen diame ters (NASCET criteria). Reviewed, dictated and finalized at location A. IMPRESSION: 1. No neoplasm identified. 2. 0% stenosis of the proximal internal carotid arteries relative to normal dis chandler artery lumen diameters (NASCET criteria).
[2023-07-07 07:41] LABS: Estimated Glomerular Filt Rate > 60
== END 2023-07-07 07:20 | disposition home or self-care (01) ==
PROVIDERS: PCP Internal Medicine; Visit Provider Otolaryngology
DX: D49.2 Neoplasm of unspecified behavior of bone, soft tissue, and skin (principal)
CPT/HCPCS: 70498; Q9967

== ENCOUNTER 2023-07-13 08:19 | Outpatient (CLI) | payer MEDICARE, MEDICAID, SELFPAY ==
[2023-07-13 08:41] LABS: Basophils Percent Auto 0.8 % (0.2-1.2); Eosinophils Absolute Auto 0.4 K/mm3 (0-0.3); Eosinophils Percent Auto 7.5 % (0-4.4); Hematocrit 34.6 % (37.0-47.0); Hemoglobin 11.1 g/dL (12.0-15.0); Immature Granulocyte Absolute 0.01 K/mm3 (0.00-0.031); Immature Granulocyte Percent A 0.2 % (0-0.5); Lymphocytes Absolute Auto 0.95 K/mm3 (0.9-3.2); Lymphocytes Percent Auto 19.3 % (18.3-44.2); Mean Corpuscular HGB Conc 32.1 g/dl (32-36); Mean Corpuscular Hemoglobin 27.4 pg (26-34); Mean Corpuscular Volume 85.4 fl (80-100); Mean Platelet Volume 8.9 fl (7.4-10.4); Monocytes Absolute Auto 0.5 K/mm3 (0.1-0.6); Monocytes Percent Auto 9.1 % (2.6-8.5); Neutrophils Absolute Auto 3.1 K/mm3 (1.3-6.7); Neutrophils Percent Auto 63.1 % (45.5-73.1); Platelet Count Result 328 k/mm3 (150-375); Red Blood Count 4.05 M/mm3 (4.2-5.4); Red Cell Distribution Width 15.8 % (11.5-14.5); White Blood Count 4.9 K/mm3 (4.5-10.0)
[2023-07-13 11:42] LABS: Iron 37 ug/dL (37-170)
[2023-07-13 11:56] LABS: Percent Iron Saturation 10 % (20-50)
[2023-07-13 12:19] LABS: Ferritin 7.05 ng/mL (11.1-264)
[2023-07-13 12:56] LABS: Folic Acid 7.4 ng/mL (2.76->20)
== END 2023-07-13 08:20 | disposition home or self-care (01) ==
PROVIDERS: PCP Internal Medicine; Visit Provider Internal Medicine Hematology & Oncology
DX: D50.9 Iron deficiency anemia, unspecified (principal)
CPT/HCPCS: 36415; 82607; 82728; 82746; 83540; 83550; 85025

== ENCOUNTER 2023-08-04 00:40 | Day surgery (SDC) | payer MEDICARE, MEDICAID, SELFPAY ==
[2023-08-03 13:47] VITALS: BMI 34.2
--- NOTE | 2023-08-03 14:30 | PC.NURSE ---
Report to the Outpatient Waiting Room, entrance under the green pavilion located off [facility], at time _11:00AM__ on date _08/04/23 . Planned Procedure Time: ____1:00PM ____. Time changes happen often and if your time is changed the preop area will call you the afternoon before. - You and your visitor will be asked to self-screen and do not enter if you have any COVID symptoms. - A mask is optional within the hospital at this time. Patients may have clear liquids (water, carbonated beverages, clear teas, apple juice) until 3 hours prior to surgery with a maximum of 20 ounces. - No food from midnight until time of surgery - Infants may have breast milk until 4 hours before surgery, infant formula 6 hours prior to surgery. - Children will be allowed to drink immediately following surgery. If applicable, please bring a bottle or sippy cup to assist with drinking. Juice, water, soda, and popsicles are readily available. For infants on formula, please bring formula the day of surgery. Pacifiers are allowed. Take the following medications with a SIP of water the morning of surgery: ___THYROID AND CARVEDILOL DO NOT STOP ANY OF YOUR OTHER PRESCRIPTION MEDICATIONS PRIOR TO SURGERY ?EXCEPT THE FOLLOWING Medications to discontinue per physician HOLD ALL VITAMINS AND SUPPLEMENTS STARTING NOW Date to take last dose Please no make-up, nail tanzanian, hairspray, perfume, deodorant, or body powder the day of surgery. No jewelry (including any body piercings) or valuables the day of surgery, leave them at home. Please take a shower or bath the night before, or the morning of, surgery with an antibacterial soap. Wear comfortable, loose fitting clothing. Children are encouraged to wear pajamas. - Jewelry must be removed prior to entering the operating room. Rings and piercings that are not removed may be cut off. - The hospital will not accept responsibility for valuables. - Please leave all valuables, including medications, at home the day of surgery. If you are going home after surgery, a licensed armored car guard and driver must drive you home. - NO public transportation without another adult if you receive anesthesia. - We recommend that an adult stay with you for 24 hours following discharge. - We also recommend that you do not drive, make important decision, drink alcoholic beverages, or take any drugs that were not prescribed by your health care provider for at least 24 hours after your discharge time. For Pediatric surgeries, we recommend two adults accompany the child home. Follow any additional instructions given to you from your surgeon. If you or anyone in your household have experienced Covid symptoms in the past week, please notify your surgeon or the nurse liaison at the phone number below for possible testing. Telephone instructions given to ___PATIENT and asked if any additional questions and then verbalized understanding. Patient advised to call surgeon office or pre surgery nurse liaison [phone] if any additional questions.
--- NOTE | 2023-08-03 16:46 | PM.IMHP ---
H&P: HPI History of Present Illness Date/Time: 08/03/23 16:46 Chief Complaint: Hemoptysis Narrative: planned procedure Review of Systems Review of Systems: All systems reviewed & are unremarkable except as noted in HPI and below [facility] Past Medical History Medical History Anemia Arthritis of right hip Asthma Bronchitis COPD (chronic obstructive pulmonary disease) The patient denies DDD (degenerative disc disease) Endometriosis Hemorrhoid Hiatal hernia HTN (hypertension) Hyperlipidemia Hypothyroid Pancreatitis Presence of pancreatic duct stent This was subsequently removed. 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 Vitamin B12 deficiency anemia, unspecified Surgical History Surgical History H/O discectomy H/O hemorrhoidectomy H/O skin graft FTSG on left lower leg History of cardiac catheterization with no blockages History of ERCP History of hysterectomy History of pancreatic surgery History of spinal surgery lumbar x2 History of surgical removal of skin lesion of skin cancer on left lower leg Hx of appendectomy Hx of cholecystectomy Family History Family History Mother Hypertension Diabetes mellitus Father Malignant neoplasm of prostate Patient's father is Sibling Malignant neoplasm of prostate Hodgkin disease Stomach cancer Heart aneurysm Grandparent Alcoholism Other Family history of coronary artery disease Family history of elevated blood lipids Social History Social History (Updated 08/03/23 @ 08:04 by Tracey Najera) Social History: 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 Code status full code Caffeine- daily Smoking packs per day: 0.5 Smoking cigarettes per day: 10.0 Years smoked: 50 Smoking pack-years: 25.00 Smoking status: Former smoker Tobacco type: cigarettes Second hand tobacco smoke exposure: No Smoking end date: 02/06/17 Additional smoking assessment comments: STATES SMOKED 1/2PK/DAY/50+YRS Alcohol intake: never Substance use: never Substance use type: does not use Do You Feel Safe in your Home?: Yes Lack of Transportation: No Lack of Food: Never True Current Housing: I Have Housing Concerned About Future Housing: No Difficulty Paying Gas/Electric Bills: No Difficulty Paying for Meds: No Currently Unemployed: No Education: High School Diploma/GED Difficulty w/ Childcare or Family Care: No Living arrangements: alone Occupation/Education: retired Gender identity (if verbalized by the patient): Female Sexual Orientation (if Verbalized by the Patient): Straight or Heterosexual Spiritual care concerns: No Agree to blood products: Yes Meds Home Medications and Allergies Home Medications Medication Instructions Recorded Confirmed Type carvedilol 6.25 mg tablet 6.25 mg PO BID 11/28/18 08/03/23 History hydrochlorothiazide 12.5 mg capsule 12.5 mg PO DAILY 11/28/18 08/03/23 History levothyroxine 137 mcg tablet 137 mcg PO DAILY 07/26/22 08/03/23 History metformin 500 mg tablet 500 mg PO BID 08/08/22 08/03/23 History sodium chloride 0.65 % nasal spray 2 spray intranasal QID #88 mL 02/01/23 08/03/23 Rx aerosol (Saline Nasal) cholecalciferol (vitamin D3) 25 25 mcg PO DAILY 02/07/23 08/03/23 History mcg (1,000 unit) tablet ezetimibe 10 mg tablet 10 mg PO DAILY 05/22/23 08/03/23 History mupirocin 2 % topical ointment See Rx Instructions topical 06/20/23 08/03/23 Rx .COMPLEX #44 grams cyanocobalamin (vitamin B-12) 1,000 mcg PO DAILY 08/03/23 08/03/23 History 1,000 mcg capsule polysaccharide iron complex 150 mg 150 mg PO BID 08/03/23 08/03/23 History iron capsule (Ferrex) Allergies Allergy/AdvReac Type Severity R
[2023-08-04] VITALS (13 sets, daily range): BP systolic 119–146; BP diastolic 75–99; PULSE 71–88; RESP 16–20; TEMP 36.2–36.3; O2SAT 91–96; BMI 34.0
--- NOTE | 2023-08-04 09:36 | ECG_ITS ---
Test Date: 2023-08-04 11:18:16 Measurements Intervals [place] Rate: 71 P: 26 HI: 190 QRS: -2 QRSD: 88 T: 14 QT: 380 QTc: 414 Interpretive Statements SINUS RHYTHM NORMAL ELECTROCARDIOGRAM No previous ECG available for comparison Electronically Signed On 08-04-2023 15:47:54 CDT by Itz Tineo M.D.
[2023-08-04 11:30] LABS: Glucose Point of Care 116 mg/dl (65-105)
[2023-08-04] MEDS: ceFAZolin 2 GM/D5W 50 ML 2 GM/50 ML BAG IVPB (13:03)
--- NOTE | 2023-08-04 13:03 | WPDANESEPPF ---
Anes - Initial Pre Proc Eval Procedure: Operation Date: 08/04/23 13:00 Proposed Procedures p Microdirect Laryngoscopy with Cauterization - Bayron Morin MD Date/Time: 08/04/23 13:03 Surgeon: Bayron Morin MD Pre Op Diagnosis: hemoptysis Patient Data Age: 78 Gender: F Height: 1.57 m Weight: 84.4 kg Last Vital Signs Temp 97.2 F L 08/04/23 11:53 Pulse 78 08/04/23 11:53 Resp 16 08/04/23 11:53 BP 130/84 08/04/23 11:53 Pulse Ox 93 08/04/23 11:53 O2 Del Method Room Air 08/04/23 11:53 Allergies Allergy/AdvReac Type Severity Reaction Status Date / Time meperidine AdvReac Severe Hallucinati Verified 08/03/23 08:02 ng codeine AdvReac Mild Itching Verified 08/03/23 08:02 NSAIDS (Non-Steroidal AdvReac Mild Gastrointestinal Verified 08/03/23 08:02 Anti-Inflamma Upset oxycodone AdvReac Severe Nausea Uncoded 08/03/23 13:40 Home Medications Medication Instructions Recorded Confirmed Type carvedilol 6.25 mg tablet 6.25 mg PO BID 11/28/18 08/03/23 History hydrochlorothiazide 12.5 mg capsule 12.5 mg PO DAILY 11/28/18 08/03/23 History levothyroxine 137 mcg tablet 137 mcg PO DAILY 07/26/22 08/03/23 History metformin 500 mg tablet 500 mg PO BID 08/08/22 08/03/23 History sodium chloride 0.65 % nasal spray 2 spray intranasal QID #88 mL 02/01/23 08/03/23 Rx aerosol (Saline Nasal) cholecalciferol (vitamin D3) 25 25 mcg PO DAILY 02/07/23 08/03/23 History mcg (1,000 unit) tablet ezetimibe 10 mg tablet 10 mg PO DAILY 05/22/23 08/03/23 History mupirocin 2 % topical ointment See Rx Instructions topical 06/20/23 08/03/23 Rx .COMPLEX #44 grams cyanocobalamin (vitamin B-12) 1,000 mcg PO DAILY 08/03/23 08/03/23 History 1,000 mcg capsule polysaccharide iron complex 150 mg 150 mg PO BID 08/03/23 08/03/23 History iron capsule (Ferrex) Laboratory Tests 08/04/23 11:27 POC Capillary Glucose 116 H mg/dl (65-105) Patient hx anesthesia problems: none Family hx anesthesia problems: none Results Review: All pre-operative results and documents have been reviewed as part of the pre-operative evaluation. [facility] Past Medical History Medical History Anemia Arthritis of right hip Asthma Bronchitis COPD (chronic obstructive pulmonary disease) The patient denies DDD (degenerative disc disease) Endometriosis Hemorrhoid Hiatal hernia HTN (hypertension) Hyperlipidemia Hypothyroid Pancreatitis Presence of pancreatic duct stent This was subsequently removed. 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 Vitamin B12 deficiency anemia, unspecified Surgical History Surgical History H/O discectomy H/O hemorrhoidectomy H/O skin graft FTSG on left lower leg History of cardiac catheterization with no blockages History of ERCP History of hysterectomy History of pancreatic surgery History of spinal surgery lumbar x2 History of surgical removal of skin lesion of skin cancer on left lower leg Hx of appendectomy Hx of cholecystectomy Family History Family History Mother Hypertension Diabetes mellitus Father Malignant neoplasm of prostate Patient's father is Sibling Malignant neoplasm of prostate Hodgkin disease Stomach cancer Heart aneurysm Grandparent Alcoholism Other Family history of coronary artery disease Family history of elevated blood lipids Social History Social History Social History: 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 Code status full code Caffeine- daily Smoking packs per day: 0.5 Smoking cigarettes per day: 10.0 Years smoked: 50 Smoking pack-years: 25.00 Smoking status:
--- NOTE | 2023-08-04 13:19 | WPDHPUPDATE1 ---
History and Physical Update Update Date/Time: 08/04/23 13:19 History and Physical has been reviewed, including an updated exam of the patient. There are NO changes in the patient's condition. Risks, benefits, and alternatives have been discussed and questions answered. Patient agrees to proceed with procedure.
[2023-08-04] MEDS: LACTATED RINGERS 1,000 ML 30 ML IV CONT (13:21)
[2023-08-04] MEDS: OXYMETAZOLINE HCL 0.05% NAS 15 ML BTL (*BKC) 1 SPRAY NASAL (14:06)
--- NOTE | 2023-08-04 14:36 | SUR.OPER ---
Incidental tooth extraction by Dr. Morin during operative procedure
[2023-08-04 14:52] LABS: Glucose Point of Care 143 mg/dl (65-105)
[2023-08-04] MEDS: HYDROmorphone HCL INJ (*CRX) 1 MG/ML SYR 0.25 MG IV PUSH (15:04)
[2023-08-04] MEDS: ONDANSETRON INJ 4 MG/2 ML VIAL IV PUSH (15:43)
--- NOTE | 2023-08-04 15:58 | P.OP_ITS ---
Procedure Note - Detailed Date of Procedure 08/04/23 Pre-op Diagnosis hemoptysis Post-op Diagnosis Same Procedure Performed direct laryngoscopy with cautery of left-sided abnormal vasculature Surgeon Bayron Morin MD Anesthesia General Indications see above Findings for left-sided tongue base abnormal vasculature looked like a sidewall arterial old that was pumping. This was cauterized with a laryngoscopic ball-tipped electrocautery device. Of note there was inadvertent removal of right-sided dentition during laryngoscopy. Description of Procedure Patient identified consent verified preop. Patient without room. Time-out performed. General anesthesia induced endotracheal tube secured airway. Patient prepped draped position procedure confirmed 2nd time-out performed. Maxillary tooth mouth guard placed all the teeth were covered. Baron Aleksandr laryngoscope utilized unable to get good visualization given the anterior location of the abnormal vasculature. Switched to a Dedo laryngoscope Dedo laryngoscope inserted good view under endoscopic visualization the vascular of the vessel was which was pumping at this point was stopped with an Afrin- soaked pledgets then cauterized a setting of 15 multiple times until the entire area had no abnormal vasculature within it. All blood was suctioned out. Lidocaine sprayed over the vocal cords. Orogastric tube placed. At this point when the laryngoscope was being removed that I noticed a tooth had been inadvertently knocked out on the right side. maxillary tooth mouth guard removed. No bleeding. Patient tolerated the procedure very well care the patient back to Anesthesiology. Postoperatively the sister and patient reported the teeth were loose prior to surgery. I apologized profusely to both the patient and the sister. recommended the sister contact the patient's dentist. I contacted an oral maxillofacial surgeon colleague who stated that the tooth appears diseased he did not recommend placed and tooth back. Total blood loss about 5 cc. I performed all dictated portions of the procedure no complications care the patient was given Anesthesiology. Patient taken to PACU. Of note there was no abnormal appearing tissue around the sidewall vessel. It appeared as normal tongue base. Estimated Blood Loss 5 Drains No Packing No Pathology None sent Complications No immediate complications Condition Stable Disposition PACU [facility] Billing Surgery - Charge Forward: Surgery Billing
[2023-08-04] MEDS: PROMETHAZINE HCL 25 MG/ML AMPUL 6.25 MG IV PUSH (16:10)
--- NOTE | 2023-08-04 16:48 | SUR.PHASEII ---
Dr. Villa notified at 1404 by this RN that patient is still nauseated despite current antiemetics. See orders.
--- NOTE | 2023-08-04 17:53 | SUR.PHASEII ---
Dr Morin notified by this RN at [phone] about patient unable to maintain SpO2>92% on room air even after use of incentive spirometer and deep breathing. Per MD give patient more time in recovery on oxygen before he would consider admitting her. Dr Morin updated at 9012 that patient has been maintaining SpO2 92-94% on room air and after ambulation for 30 minutes. Per MD, patient now ok to d/c.
== END 2023-08-04 18:05 | disposition home or self-care (01) ==
PROVIDERS: PCP Internal Medicine; Visit Provider Otolaryngology
PROC: 0CJS8ZZ Inspection of Larynx, Via Natural or Artificial Opening Endoscopic (ICD-10-PCS; CPT 31575; principal; 2023-08-04 13:00)
DX: K14.8 Other diseases of tongue (principal); R04.2 Hemoptysis; Z87.891 Personal history of nicotine dependence; J45.909 Unspecified asthma, uncomplicated; I10 Essential (primary) hypertension; E78.5 Hyperlipidemia, unspecified; E03.9 Hypothyroidism, unspecified; E53.8 Deficiency of other specified B group vitamins
CPT/HCPCS: 41599; 82948; 93005; A9270; J0330; J0690; J1100; J1170; J2250; J2405; J2550; J2704; J3010; J7120

== ENCOUNTER 2023-10-12 10:10 | Outpatient (CLI) | payer MEDICARE, MEDICAID, SELFPAY ==
[2023-10-12 10:25] LABS: Hematocrit 40.1 % (37.0-47.0); Hemoglobin 12.9 g/dL (12.0-15.0); Mean Corpuscular HGB Conc 32.2 g/dl (32-36); Mean Corpuscular Hemoglobin 27.4 pg (26-34); Mean Corpuscular Volume 85.3 fl (80-100); Mean Platelet Volume 8.8 fl (7.4-10.4); Platelet Count Result 290 k/mm3 (150-375); Red Cell Distribution Width 14.7 % (11.5-14.5); White Blood Count 5.4 K/mm3 (4.5-10.0)
[2023-10-12 12:55] LABS: Iron 96 ug/dL (37-170)
[2023-10-12 12:59] LABS: Alanine Aminotransferase 30 U/L (6-35); Albumin Level 4.5 g/dL (3.5-5.1); Alkaline Phosphatase 79 U/L (38-126); Anion Gap 9 mmol/L (4-12); Aspartate Amino Transferase 24 U/L (14-36); Bilirubin,Total 0.6 mg/dL (0.2-1.3); Blood Urea Nitrogen 14 mg/dL (7-17); Calcium 10.5 mg/dL (8.4-10.2); Carbon Dioxide 28 mmol/L (22-30); Chloride 100 mmol/L (98-107); Estimated Glomerular Filt Rate > 60; Glucose 103 mg/dL (65-110); Potassium 3.9 mmol/L (3.4-5.0); Sodium 137 mmol/L (137-145)
[2023-10-12 13:09] LABS: Percent Iron Saturation 29 % (20-50)
[2023-10-12 14:05] LABS: Folic Acid 9.4 ng/mL (2.76->20)
== END 2023-10-12 10:11 | disposition home or self-care (01) ==
LOC: ANHLAB 10:12
PROVIDERS: PCP Internal Medicine; Visit Provider Internal Medicine Hematology & Oncology
DX: D50.9 Iron deficiency anemia, unspecified (principal)
CPT/HCPCS: 36415; 80053; 82607; 82728; 82746; 83540; 83550; 85027

== ENCOUNTER 2024-05-06 13:39 | Outpatient (CLI) | payer MEDICARE, MEDICAID, SELFPAY ==
--- NOTE | ~2024-05-06 | US_ITS ---
EXAMINATION: US thyroid DATE: 05/06/2024 14:29 INDICATION: Hypercalcemia. TECHNIQUE: Multiple ultrasound images of the thyroid were obtained. COMPARISON: Neck CT 07/07/2023 FINDINGS: The right thyroid lobe measures 2.2 x 1.0 x 0.9 cm. The left thyroid lobe measures 1.9 x 1.0 x 0.9 c m. The thyroid is diffusely heterogeneous and hypoechoic. Vascularity is normal. No discrete nodule. IMPRESSION: 1. 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 Reviewed, dictated and finalized at location A. IMPRESSION: 1. Small, heterogeneous thyroid, likely chronic lymphocytic (Pepe) thyroid itis.
--- OUTSIDE RECORDS SUMMARY | 2024-05-06 14:57 | XMS_ITS | Clinical Summary ---
Author Organization [facility] Address [address] [place] [address] Care Team Providers Care Service Station Cashier Name Role Phone David Bach MD Primary Care Provider Allergies Active Allergy Reactions Criticality Noted Date Comments Codeine Itching Low 01/22/2018 Ibuprofen Unknown High 04/20/2021 Meperidine Hallucination Low 01/22/2018 Morphine Itching Low 11/18/2019 Nsaids (Non-Steroidal Anti-I nflammatory Drug) Hives High 11/18/2019 Medications calcium-vitamin D3 (CALTRATE 600+D) 600 mg(1,500mg) -200 unit Tablet Take 1 Tablet by mouth daily . Active cholecalciferol 50,000 unit Capsule Take 50,000 Units by mouth every 7 days . Active acetaminophen (TYLENOL) 500 mg tablet Take 500 mg by mouth every 6 hours as needed. Active levothyroxine 125 mcg tablet Take 125 mcg by mouth daily early childhood director. Active simvastatin (ZOCOR) 40 mg tablet Take 40 mg by mouth daily with supper. Active hydroCHLOROthiaz bailey (MICROZIDE) 12.5 mg capsule Take 12.5 mg by mouth daily. Active carvedilol (COREG) 6.25 mg tablet Take 6.25 mg by mouth 2 times daily with meals. Active ferrous sulfate 325 mg (65 mg iron) tablet Take 325 mg by mouth 2 times daily. Active traMADol (ULTRAM) 50 mg tablet TAKE 1 TABLET BY MOUTH ONCE DAILY NEEDED 01/17/20 Active meclizine (ANTIVERT) 25 mg tablet meclizine 25 mg tablet Active HYDROcodone-acet aminophen (NORCO) 5-325 mg tablet TAKE 1 TABLET BY MOUTH EVERY 4 TO 6 HOURS NEEDED FOR PAIN 10/31/19 Active cyanocobalamin (VITAMIN B-12) 1,000 mcg/mL Solution 1 mL. Active clotrimazole-bet amethasone (LOTRISONE) 1-0.05 % Cream APPLY CREAM TO AFFECTED AREA ONCE DAILY AFTER WASHING. 02/04/20 Active flu vaccine quadrivalent ,65 yr+,,PF, (Fluzone HighDose Quad PF) 240 mcg/0.7 mL Syringe syringe Fluzone High-Dose Quad (PF) 240 mcg/0.7 mL IM syringe PHARMACIST ADMINISTERED IMMUNIZATION ADMINISTERED AT TIME OF DISPENSING Active Ferrex 150 150 mg iron capsuleIndicatio ns:Microcytic anemia Take 1 Capsule (150 mg) by mouth daily. 90 Capsule 02/17/19 Active diphenhydrAMINE (Benadryl Allergy) 25 mg tablet every 24 hours. Acti ve ergocalciferol (VITAMIN D2) 50,000 unit capsule ergocalciferol (vitamin D2) 1,250 mcg (50,000 unit) capsule Take 1 capsule by oral route WEEKLY for 60 days. Active metFORMIN (GLUCOPHAGE) 500 mg tablet Take 500 mg by mouth 2 times daily. 04/11/19 Active Active Problems Problem Noted Date Diagnosed Date Vitamin B12 deficiency anemia 01/29/2018 Microcytic anemia 01/22/2018 Encounters Date Type Department Care Team Description 03/26/2024 External Device Data [facility] ABSTRACTION Provider, Abstract 02/29/2024 External Device Data [facility] ABSTRACTION Provider, Abstract 02/27/2024 External Device Data [facility] ABSTRACTION Provider, Abstract from Last 3 Months Family History Medical History Relation Name Comments Prostate Cancer Brother 1 Prostate Cancer Brother 2 Cancer Brother 3 Cancer Father Prostate Cancer Father Diabetes Mother Hodgkin's lymphoma Sister 1 Relation Name Status Comments Brother 1 Alive Brother 2 Alive Brother 3 Alive Brother 4 Father Mother Sister 1 Alive Sister 2 Alive Sister 3 Alive Sister 4 Alive Sister 5 Alive Sister 6 Alive Social History Tobacco Use Types Packs/Day Years Used Date Smoking Tobacco: Former Cigarettes 0.5 50 1 972 - 2021 Smokeless Tobacco: Never Tobacco Cessation:Counseling Given: Not Answered Alcohol Use Standard Drinks/Week Comments No 0 (1 standard drink = 0.6 oz pur e alcohol) Comments No Sex and Gender Information Value Date Recorded Sex Assigned at Not on file Legal 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 Gender Identity Not on file Sexual Orientation Not on file Last Filed Vital Signs Vital Sign Reading Time Taken Comments Blood Pressure 134/80 10/20/2023 10:46 AM CDT Pulse 72 10/20/2023 10:46 AM CDT Temperature 36.6 C (97.8 F) 10/20/2023 10:46 AM CDT Respiratory Rate 18 10/20/2023 10:46 AM CDT Oxygen Saturation 93% 10/20/2023 10:46 AM CDT Inhaled Oxygen Concentration - - Weight 85.7 kg (189 lb) 10/20/2023 10:46 AM CDT Height 157.5 cm (5' 2 ) 11/10/2021 1:35 PM CDT Body Mass Index 34.57 11/10/2021 1:35 PM CDT Plan of Treatment Upcoming Encounters Date Type Department Care Team (Late st Contact Info) Description 05/15/2024 3:30 PM CDT Office Visit [facility] [place] [address] [place] [address] [facility] [address] [place] [address] Darian Alvarenga MD [address] [facility] [address] [place] [address] Health Maintenance Due Date Last Done Comments DIABETES ANNUAL FOOT EXAM 1963 DIABETES ANNUAL RETINAL EXAM 1963 DIABETES MICROALBUMIN ANNUAL SCREEN 1963 LDL CHOLESTEROL ANNUAL 1963 Lung Cancer Screening 1995 ZOSTER VACCINE (1 of 2) 1995 RSV VACCINE (60+ or ) (1 - 1-dose 75+ series) 02/29/2020 DTAP/TDAP/TD VACCINES (2 - T d or Tdap) 10/15/2022 10/15/2012 INFLUENZA VACCINE (#1) 2023 , 01/05/2022, 01/18/2021, Additional history exists COVID-19 Vaccine ( - 2023-2 5 season) 2023 02/23/2021, 04/27/2020, 04/25/2020, Additional history exists DIABETES HBA1C Q 6 MONTHS 04/14/20242023, 07/12/2023, 03/13/2023, Additional history exists PNEUMOCOCCAL VACCINE 50+ YEARS Completed 0 09/21/2016, 09/23/2015, 08/31/2015 FIT/FOBT Q 1 year Discontinued 06/18/2018 OSTEOPOROSIS SCREENING Completed 3, 05/09/2022, 09/18/2019, Additional history exists COLORECTAL SCREENING Discontinued 08/19/2022, 08/19/2022, 09/10/2018, Additional history exists Colorectal Cancer Screening Discontinued FIT-DNA Q 3 years Discontinued Flex Sig/CT Colonography Q 5 years Discontinued Procedures Procedure Name Priority Date/Time Associated Diagnosis Comments POC OCCULT BLOOD 1 CARD Routine 06/18/2018 Anemia due to vitamin B12 deficiency, unspecified B12 deficiency type from Last 3 Months or Most Recently Relevant to Health Maintenance Results * (ABNORMAL) POC OCCULT BLOOD 1 CARD (06/18/2018) Stool STOOL SPECIMEN / Unknown Darian Alvarenga MD POINT OF CARE TESTING Final Res [facility] from Last 3 Months or Most Recently Relevant to Health Maintenance Insurance MEDICARE PART A [place] B [place] Care Teams Service Station Cashier Relationship Specialty Start Date End Date David Bach MD PCP - General Internal Medicine 01/15/18
--- OUTSIDE RECORDS SUMMARY | 2024-05-06 14:57 | XMS_ITS | CONTINUITY OF CARE DOCUMENT ---
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 Symone Martell MD CHEST PAIN NL STRESS TEST 09/17 active ? Ra Martell MD TOBACCO ABUSE QUIT active Symone Martell MD ANEMIA S/P ENDOSCOPY, COLONO SCOPY DIVERICULITIS,POLYPS active Symone Martell MD HTN SYSTOLIC active Symone Martell MD OBESITY active Symone Martell MD COPD ON CHEST CT active Symone Martell MD SLEEP APNEA, on cpap active Damien Laguerrezai PALPITATIONS active Symone Martell MD Thoracic aortic aneurysm, 3. 9 cm by echo 03/2023 active Symone Martell MD ENCOUNTERS Date Type Provider Location Encounter Diag nosis - In-person encounter Office Visit Symone Martell MD [place] SLEEP APNEA, on cpap - In-person encounter Office Visit Symone Martell MD [facility] HTN SYSTOLICThoracic aortic aneurysm, 3.9 cm by echo 03/2023 - In-person encounter Office Visit Symone Martell MD [place] [facility] TOBACCO ABUSE QUIT - In-person encounter Office Visit Symone Martell MD [place] Thoracic aortic aneurysm, 3.9 cm by echo 03/2023 - In-person encounter Office Visit Symone Martell MD [facility] [place] [facility] PALPITATIONS - In-person encounter Office Visit Symone Martell MD [facility] - In-person encounter Office Visit Symone Martell MD [facility] - In-person encounter Office Visit Symone Martell MD [place] HYPOTHYROIDISMCHEST PAIN NL STRESS TEST 09/17TOBACCO ABUSE QUITANEMIA S/P ENDOSCOPY, COLONOSCOPY DIVERICULITIS,POLYPSHTN SYSTOLICOBESITYCOPD ON CHEST CT VITAL SIGNS Date Observation Value Provider Body Mass Index (Ratio) 33.30 kg/m2 Les Martell MD respiratory rate E&M 16 /min Meredith Callaway pulse rate 83 /min Meredith Callaway oxygen saturation, oximetry 94 % Meredith Callaway blood pressure, diastolic 82 mm[Hg] Roberta Callaway blood pressure, systolic 141 mm[Hg] Bethanie torsten Nilton weight E&M 188 [lb_av] Meredith Nilton blood pressure, cuff size regular Nv sasha Callaway height E&M 63 [in_i] Meredith Nilton Body Mass Index (Ratio) 32.77 kg/m2 Les Martell MD pulse rate 63 /min Falguni Louis oxygen saturation, oximetry 98 % Falguni Louis respiratory rate E&M 16 /min Falguni Aurelia lyle blood pressure, cuff size regular [facility] blood pressure, diastolic 77 mm[Hg] [facility] blood pressure, systolic 135 mm[Hg] [facility] Louis weight E&M 185 [lb_av] [facility] height E&M 63 [in_i] [facility] Body Mass Index (Ratio) 31.35 kg/m2 Les Martell MD blood pressure, diastolic 84 mm[Hg] Li nkLog blood pressure, systolic 145 mm[Hg] Erna kLog blood pressure, cuff size regular Ja rret blood pressure, diastolic 84 mm[Hg] Ja rret blood pressure, systolic 145 mm[Hg] Jar ret pulse rate 63 /min Quan respiratory rate E&M 12 /min Quan oxygen saturation, oximetry 95 % Quan weight E&M 177 [lb_av] Quan y height E&M 63 [in_i] Quan er y Body Mass Index (Ratio) 31.70 kg/m2 Les Martell MD respiratory rate E&M 14 /min Rosaalbin lechuga blood pressure, cuff size large An prem Burns blood pressure, diastolic 87 mm[Hg] An prem Burns blood pressure, systolic 142 mm[Hg] Any a Grant pulse rate 66 /min Rosa Grant weight E&M 179 [lb_av] Rosa Grant oxygen saturation, oximetry 96 % Rosa Grant height E&M 63 [in_i] Rsoa Grant Body Mass Index (Ratio) 30.58 kg/m2 Anea talia Chase blood pressure, diastolic 70 mm[Hg] An eatris Chase blood pressure, systolic 116 mm[Hg] Ane atris Chase pulse rate 74 /min Aneatris Chase oxygen saturation, oximetry 95 % Lilliam Stone respiratory rate E&M 18 /min Carlottarobeyolis kalyan Chase weight E&M 172 [lb_av] Carlottadiamond Chase Body Mass Index (Ratio) 30.27 kg/m2 Álvaro Mckee blood pressure, diastolic, left arm 76 mm [Hg] Manilonnie Mckee blood pressure, systolic, left arm 134 mm [Hg] Manilonnie Mckee blood pressure, diastolic, right arm 80 m m[Hg] Manilonnie Mckee blood pressure, systolic, right arm 133 m m[Hg] Manilonnie Mckee blood pressure, diastolic 80 mm[Hg] Pascal blood pressure, systolic 134 mm[Hg] Mani lonnie Mckee pulse rate 70 /min [facility] oxygen saturation, oximetry 98 % Manilonnie Mckee respiratory rate E&M 16 /min Manilonnie Mckee weight E&M 170.25 [lb_av] Manilonnie fleming Body Mass Index (Ratio) 28.98 kg/m2 Valente i Philip blood pressure, diastolic 68 mm[Hg] Jakob morai Philip blood pressure, systolic 118 mm[Hg] Yuko Palacios pulse rate 75 /min Romi koehler oxygen saturation, oximetry 97 % Romi Palacios respiratory rate E&M 16 /min Romi cardona weight E&M 163 [lb_av] Romi koehler height E&M 63 [in_i] Romi mcnallyer blood pressure, diastolic 80 mm[Hg] Rick Means RN blood pressure, systolic 129 mm[Hg] Jeus Means RN pulse rate 67 /min Jesu Means RN oxygen saturation, oximetry 97 % Jesu Sharmakalyan ORTEGA respiratory rate E&M 16 /min Jesu hendricksonkalyan ORTEGA Body Mass Index (Ratio) 29.26 kg/m2 Jesu Sharmakalyan ORTEGA weight E&M 162 [lb_av] Jesu Sharmakalyan ORTEGA height E&M 62.5 [in_i] Jesu Means RN RESULTS Date Observation Value Provider Reference Range Interpretation Location platelet count 291 10*3/mm3 Rick Garcia [facility]ocrit, blood 37.1 % [facility] thyroid stimulating hormone, serum 4.440 u[IU]/mL [facility] Jose alanine aminotransferase (SGPT), serum 67 1/L [facility] aspartate aminotransferase (SGOT), serum 29 1/L [facility] Jose creatinine, serum 0.60 mg/dL [facility] Jose potassium, serum 4.4 mmol/L [facility] sodium, serum 141 mmol/L [facility] D-dimer quantitative mcg/mL 0.6 ug/mL [facility] lipoprotein, beta, serum, point, quantitative, calculated 116 mg/dL [facility] cholesterol, serum 168 mg/dL [facility] platelet count 335 10*3/mm3 [facility] hematocrit, blood 31.5 % [facility] creatinine, serum 0.82 mg/dL [facility] potassium, serum 4.0 mmol/L [facility] sodium, serum 140 mmol/L [facility] international normalized ratio (INR) 1.02 [facility] international normalized ratio (INR) 1.0 [facility] platelet count 412 10*3/mm3 [facility] hematocrit, blood 27.8 % [facility] D-dimer quantitative mcg/mL 0.6 ug/mL [facility] alanine aminotransferase (SGPT), serum 18 1/L Rick Garcia aspartate aminotransferase (SGOT), serum 15 1/L Rick Garcia creatinine, serum 0.76 mg/dL Rick Garcia potassium, serum 4.4 mmol/L Rick Garcia sodium, serum 139 mmol/L Rick Garcia HISTORY OF MEDICATION USE Medication Status Instructions Dates Provider Indications Com ments metformin 500 mg tablet active TAKE 1 TABLET BY MOUTH TWICE A DAY Meredith Nilton ezetimibe 10 mg tablet active Take 1 ta blet by mouth once a day Meredith Nilton MAGOX 400 TABLET completed 1 tablet by mouth once a day - Meredith Nilton ALPRAZOLAM 0.25 MG ORAL TABLET completed take as needed - Torres Mckee [facility] [employer] completed as needed - Meredith Nilton simvastatin 40 mg tablet active Take 1 once a day Meredith Nilton B COMPLETE ORAL TABLET active by mouth once a day Meredith Nilton ferrous sulfate 325 mg (65 mg iron) tablet active once a day Meredith Nilton hydrochlorothiazide 12.5 mg capsule active 1 tablet once a day Meredith Nilton Levoxyl 100 mcg tablet active 1 tablet once a day Meredith Nilton carvedilol 6.25 mg tablet active 1 tablet twice a day Meredith Nilton ASPIRIN 81 MG ORAL TABLET active 1 tablet once a day Meredith Nilton PRILOSEC 20 MG ORAL CAPSULE DELAYED RELEASE active 1 tablet twice a day Meredith Nilton SOCIAL HISTORY Date Observation Value Provider drug use none Damien Loving alcohol use no Damien Loving passive cigarette sm cj exposure yes Damien Loving number of years as a smoker 10 years or m ore Damien Loving smoking, date started 1967 Damien nicolas smoking history, tot al pack/year 45 Damien Loving smoking history, tot al pack/day 1 Damien Loving cigarette use yes Damien Loving smoking status Former smoker Damien Lemos i drug use none Damien Loving alcohol use no Damien Loving passive cigarette sm cj exposure yes Damien Loving number of years as a smoker 10 years or m ore Damien Loving smoking, date started 1967 Damien nicolas smoking history, tot al pack/year 45 Damien Loving smoking history, tot al pack/day 1 Damien Loving cigarette use yes Damien Loving smoking status Former smoker Damien Lemos i social history reviewed E&M revi ewed - no changes required Symone Martell MD social history E&M Lives alone E thnicity: Smoking History: Mac parra is a former smoker. Damien Loving social history reviewed E&M revi ewed - no changes required Damienkalli Loving physical exercise, frequency, days per week yes Rosa Burns caffeine use, averag e drinks per day yes Rosa Burns passive cigarette sm cj exposure yes Rosa Burns number of years as a smoker 10 years or m ore Rosa Burns smoking, date started 1967 Rosaalbin robles smoking history, tot al pack/year 45 Rosaalbin Burns smoking history, tot al pack/day 1 Rosa Burns cigarette use yes Rosa Burns smoking status Former smoker Rosa biggs social history reviewed E&M reviewed Symone Martell MD smoking history, tot al pack/year 45 Lilliam Stone drug use none Symone Martell MD social history reviewed E&M reviewed Symone Martell MD smoking/tobacco cess ation, patient education and counseling yes Symone Martell MD smoking history, tot al pack/year 45 Torres Mckee social history reviewed E&M reviewed Symone Martell MD drug use no Romi Joynerisaias mcnallyer passive cigarette sm cj exposure yes Romi Philip smoking/tobacco cess ation, patient education and counseling yes Romi Philip smoking history, tot al pack/day 1 Romi Philip smoking history, tot al pack/year 44 Romi Philip smoking history, tot al pack/year 44 Jesu Means RN smoking history, tot al pack/year 44 Jesu Means RN cigarette use yes Jesu Means RN smoking, date started 1967 Leo reno RN smoking status current every day smoker Italia Means RN social history E&M L pierre alone E thnicity: Jesu Means RN social history reviewed E&M reviewed Jesu Means RN physical exercise, frequency, days per week yes LinkLog caffeine use, averag e drinks per day yes Link[facility] alcohol use, average drinks per day [facility] years or m ore [facility] smoking status Smoker [facility] MENTAL STATUS Date Observation Value Provider assessment of judgme nt and insight E&M Alert and oriented to time, place and person. Mood and affect are normal. Symone Martell MD assessment of judgme nt and insight E&M Alert and oriented to time, place and person. Mood and affect are normal. Symone Martell MD assessment of judgme nt and insight E&M Alert and oriented to time, place and person. Mood and affect are normal. Symone Martell MD assessment of judgme nt and insight E&M Alert and oriented to time, place and person. Mood and affect are normal. Jesu Means RN INSURANCE PROVIDERS Payer name Policy type / Coverage type Goldy sanchez ID [facility] Medicaid 3 [id number] [place] Medicare [id number] ADVANCE DIRECTIVES Name Date DISCUSSED - NO DECISION MADE TREATMENT PLAN Date Name Performer [id number],Symone Biggs MD [id number],Symone Biggs MD [id number],Symone Gardner MD [id number],Symone Biggs MD [id number],Symone Gardner MD Cardiology:This visi t has been a part of the consistent, comprehensive, and ongoing management of the chronic medical condition(s) listed above for the patient. BP today: 141/82 P rior BP: 135/77 (03/21/2023) Labs Reviewed: C reat: 0.60 (05/10/2012) C hol: 168 (12/09/2011) LDL: 116 (12/09/2011) Her updated medication list for this problem includes: Carvedilol 6.25 Mg Tablet (Carvedilol) ..... 1 tablet twice a day Hydrochlorothiazide 12.5 Mg Capsule (Hydrochlorothiazide) ..... 1 tablet once a day Symone Martell MD Cardiology: H er updated medication list for this problem includes: Carvedilol 6.25 Mg Tablet (Carvedilol) ..... 1 tablet twice a day Damien Loving Cardiology: B P today: 141/82 P rior BP: 135/77 (03/21/2023) Labs Reviewed: C reat: 0.60 (05/10/2012) C hol: 168 (12/09/2011) LDL: 116 (12/09/2011) Her updated medication list for this problem includes: Carvedilol 6.25 Mg Tablet (Carvedilol) ..... 1 tablet twice a day Hydrochlorothiazide 12.5 Mg Capsule (Hydrochlorothiazide) ..... 1 tablet once a day [facility] Cardiology [facility] Cardiology: H er updated medication list for this problem includes: Carvedilol 6.25 Mg Tablet (Carvedilol) ..... 1 tablet twice a day [facility] Cardiology [facility] Cardiology [facility] Cardiology [facility] Cardiology: B P today: 135/77 P rior BP: 145/84 (09/20/2022) Labs Reviewed: C reat: 0.60 (05/10/2012) C hol: 168 (12/09/2011) LDL: 116 (12/09/2011) Her updated medication list for this problem includes: Aspirin 81 Mg Oral Tablet (Aspirin) ..... One tab. daily Carvedilol 6.25 Mg Oral Tablet (Carvedilol) ..... One tab. twice daily Hydrochlorothiazide 12.5 Mg Oral Capsule (Hydrochlorothiazide) ..... One tab. daily [facility] Cardiology [facility] Cardiology [facility] Cardiology: H er updated medication list for this problem includes: Levoxyl 100 Mcg Oral Tablet (Levothyroxine sodium) ..... One tab. daily [facility] Cardiology [facility] Cardiology Symone Martell MD Cardiology Symone Martell MD Cardiology Symone Martell MD Cardiology Symone Martell MD Cardiology Symone Martell MD follow up: H er updated medication list for this problem includes: Levoxyl 100 Mcg Tabs (Levothyroxine sodium) ..... One tab. daily Symone Martell MD follow up Symone Martell MD new pt- cp Symone Martell MD new pt- cp: H er updated medication list for this problem includes: Aspirin 81 Mg Tabs (Aspirin) ..... One tab. daily Carvedilol 6.25 Mg Tabs (Carvedilol) ..... One tab. twice daily BP today: 129/80 Prior BP: / () Symone Martell MD new pt- cp: H er updated medication list for this problem includes: Levoxyl 100 Mcg Tabs (Levothyroxine sodium) ..... One tab. daily Symone Martell MD Date Name CT Angio, abdomen an d pelvis CT Angio Chest (Aort a) Complete Echo HISTORY OF PROCEDURES Procedure Date Procedure Name Provider Procedure Notes S tatus Complex e/m visit add on Symone Martell MD completed EKG Symone Martell MD completed EKG Symone Martell MD completed
--- OUTSIDE RECORDS SUMMARY | 2024-05-06 14:57 | XMS_ITS | Data Portability ---
Author Organization [facility], Main Office Address [address] [place] [address] Care Team Providers Care Dispensing Operator Name Role Phone SANJUANITA BACH Primary Care Provider Assessment Encounter Date Assessment Date Assessment LastModified by Organization Details LastModified Time 11/23/2022 11/23/2022 04/18/2022: A1C 6.2H Urine alb 21.0 VIT D 25.8 TSH/FT4: WNL CBC: WNL CMP: Gluc 132, ca 10.1 Calculated Lipids Stable 08/10/2022: A1C 5.8 Gluc 122, ca 10.3 calculated TG 173 11/15/2022: A1C 5.8 Gluc 130, Ca 10.9 Not available 11/23/2022 10:24:14 03/22/2023 03/22/2023 04/18/2022: A1C 6.2H Urine alb 21.0 VIT D 25.8 TSH/FT4: WNL CBC: WNL CMP: Gluc 132, ca 10.1 Calculated Lipids Stable 08/10/2022: A1C 5.8 Gluc 122, ca 10.3 calculated TG 173 11/15/2022: A1C 5.8 Gluc 130, Ca 10.9 03/13/2023: A1C 5.5 Gluc 133, Alb 4.6, Ca 10.7 TG 200 TSH 5.300H Not available 03/15/2023 11:00:55 07/19/2023 07/19/2023 04/18/2022: A1C 6.2H Urine alb 21.0 VIT D 25.8 TSH/FT4: WNL CBC: WNL CMP: Gluc 132, ca 10.1 Calculated Lipids Stable 08/10/2022: A1C 5.8 Gluc 122, ca 10.3 calculated TG 173 11/15/2022: A1C 5.8 Gluc 130, Ca 10.9 03/13/2023: A1C 5.5 Gluc 133, Alb 4.6, Ca 10.7 TG 200 TSH 5.300H 07/11/2024: A1C 5.6 TSH 11.6H, FT4 1.31 Gluc 124 LDL 116 H/H 11.1/35.2 07/13/2023: Dr Alvarenga B12/Folate:WN L HGB 11.1 40 minutes spent with the patient in the office, reviewed her consult notes with her and her CTA report done by THEODORA talley Not available 07/19/2023 11:01:15 10/23/2023 10/23/2023 04/18/2022: A1C 6.2H Urine alb 21.0 VIT D 25.8 TSH/FT4: WNL CBC: WNL CMP: Gluc 132, ca 10.1 Calculated Lipids Stable 08/10/2022: A1C 5.8 Gluc 122, ca 10.3 calculated TG 173 11/15/2022: A1C 5.8 Gluc 130, Ca 10.9 03/13/2023: A1C 5.5 Gluc 133, Alb 4.6, Ca 10.7 TG 200 TSH 5.300H 07/11/2024: A1C 5.6 TSH 11.6H, FT4 1.31 Gluc 124 LDL 116 H/H 11.1/35.2 07/13/2023: Dr Alvarenga B12/Folate:WN L HGB 11.1 10/16/2023: VIT D 21.1 A1C 6.0 Chol 201, TG 189, LDL 120 Gluc 135, Ca 10.8, Alb 4.5 40 minutes spent with the patient in the office, reviewed labs and referred to various consults and updated her chart gerri Not available 10/23/2023 10:59:46 Plan of Treatment Reminders Order Date Submit Date Provider Last Modified By Organization Details Last Modified Time Details Appointments Any 15 2024 10:30A Aurelia freitas MD Not available Not available Not available Lab lipid panel, serum 2023 024 [email or web address] Not available 04/23/2024 11:13:21 CMP, serum or plasma 2023 024 [email or web address] Not available 04/23/2024 11:13:21 CBC w/ auto diff 2023 024 RICHIE Not available 01/02/2024 11:49:13 TSH, serum or plasma 2023 024 [email or web address] Not available 04/23/2024 11:13:21 T4, free, serum 2023 024 [email or web address] Not available 04/23/2024 11:13:21 glycohemo globin, total, blood 2023 024 [email or web address] Not available 04/23/2024 11:13:20 microalbu min, urine 2023 024 [email or web address] Not available 04/23/2024 11:13:20 vitamin D, 25-hydrox y, total, serum 2023 024 [email or web address] Not available 04/23/2024 11:13:20 lipid panel, serum 2023 024 RICHIE Not available 10/16/2023 13:35:43 CMP, serum or plasma 2023 024 RICHIE Not available 10/12/2023 15:58:19 CBC w/ auto diff 2023 024 RICHIE Not available 10/12/2023 12:44:33 TSH, serum or plasma 2023 024 RICHIE Not available 10/16/2023 13:53:31 T4, free, serum 2023 024 RICHIE Not available 10/16/2023 13:39:43 glycohemo globin, total, blood 2023 024 RICHIE Not available 10/16/2023 16:10:26 microalbu min, urine 2023 024 RICHIE Not available 10/16/2023 18:01:47 vitamin D, 25-hydrox y, total, serum 2023 024 RICHIE Not available 10/17/2023 11:09:34 lipid panel, serum 2023 024 RICHIE Not available 07/12/2023 14:23:16 CMP, serum or plasma 2023 024 RICHIE Not available 07/12/2023 14:23:28 CBC w/ auto diff 2023 024 RICHIE Not available 05/09/2023 16:38:47 TSH, serum or plasma 2023 024 RICHIE Not available 07/12/2023 15:02:58 T4, free, serum 2023 024 RICHIE Not available 07/12/2023 14:38:45 glycohemo globin, total, blood 2023 024 RICHIE Not available 07/12/2023 16:17:14 microalbu min, urine 2023 024 RICHIE Not available 07/12/2023 15:43:34 vitamin D, 25-hydrox y, total, serum 2023 024 [email or web address] Not available 09/20/2023 09:29:45 glycohemo globin, total, blood 2022 023 RICHIE Not available 01/13/2023 17:23:06 microalbu min, urine 2022 023 RICHIE Not available 01/10/2023 16:25:42 vitamin D, 25-hydrox y, total, serum 2022 023 [email or web address] Not available 05/22/2023 09:18:21 lipid panel, serum 2022 023 RICHIE Not available 03/13/2023 14:46:00 CMP, serum or plasma 2022 023 RICHIE Not available 01/09/2023 17:03:26 CBC w/ auto diff 2022 023 RICHIE Not available 01/09/2023 17:03:26 TSH, serum or plasma 2022 023 RICHIE Not available 01/10/2023 16:24:53 T4, free, serum 2022 023 RICHIE Not available 03/13/2023 13:55:34 Referral nephrolog ist referral 2023 024 [email or web address] 2 Tres Duran MD, [address], [place], [address], 04/22/2024 08:34:52 endocrino logy referral 2023 024 RICHIE Giovanni Stark MD, [address], [place], [address], 04/30/2024 15:25:31 otolaryng ologist referral 2023 024 [email or web address] 2 Les Morales, [address] [facility], [place], [address], 04/22/2024 08:34:54 orthopedi c surgeon referral 2023 024 RICHIE Mehta MD, [address], [place], [address], 11/15/2023 13:50:47 pulmonolo gist referral 2023 024 [email or web address] 2 Simon Magana MD, [address] [facility], [place], [address], 04/22/2024 08:34:53 cardiolog ist referral 2023 024 [email or web address] 2 [place], [address], [facility] [address], [place], [address], 04/22/2024 08:34:51 gastroent erologist referral - Please call pt to schedule appt. Thank you 2023 024 2 Janes Vora MD, [address] [place], [address], 04/22/2024 08:34:49 hematolog ist referral 2023 024 Darian Alvarenga MD, [address], [place], [address], 11/20/2023 08:59:10 podiatris t referral - Please call pt to schedule appt. Thank you 2023 024 [email or web address] 2 Bharath Hoang DPM, [address] [facility] [address], [place], [address], 04/22/2024 08:34:50 nephrolog ist referral 2023 024 Tres Duran MD, [address] [facility] [address], [place], [address], 01/15/2024 12:48:46 otolaryng ologist referral 2023 024 [email or web address] Bayron Morin MD, [address] [facility] [address], [place], [address], 01/15/2024 12:48:47 pulmonolo gist referral 2023 024 [email or web address] Simon Magana MD, [address] [facility], [place], [address], 04/15/2024 17:30:46 cardiolog ist referral 2023 024 [place], [address], [place], [address], 01/15/2024 12:48:44 gastroent erologist referral - Please call pt to schedule appt. Thank you 2023 024 Janes Vora MD, [address] [place], [address], 01/15/2024 12:48:43 hematolog ist referral 2023 024 Darian Alvarenga MD, [address], [place], [address], 08/16/2023 13:56:16 podiatris t referral - Please call pt to schedule appt. Thank you 2023 024 [email or web address] Bharath Hoang DPM, [address], [place], [address], 01/15/2024 12:48:43 nephrolog ist referral 2023 024 [email or web address] Tres Duran MD, [address], [place], [address], 09/20/2023 09:33:10 gastroent erologist referral - Please call pt to schedule appt. Thank you 2023 024 [email or web address] Janes Vora MD, [address] [place], [address], 09/20/2023 09:33:08 podiatris t referral - Please call pt to schedule appt. Thank you 2023 024 [email or web address] Bharath Hoang DPM, [address], [place], [address], 09/20/2023 09:33:09 cardiolog ist referral 2023 024 [email or web address] [place], [address] [facility], [address], [address], 10/16/2023 09:39:54 podiatris t referral - Please call pt to schedule appt. Thank you 2022 023 [email or web address] Bharath Hoang DPM, [address], [place], [address], 11/20/2023 08:58:27 nephrolog ist referral 2022 023 [email or web address] Tres Duran MD, [address], [place], [address], 08/23/2023 08:17:20 cardiolog ist referral 2022 023 [email or web address] [place], [address], [address], [place], [address], 02/24/2023 08:31:37 gastroent erologist referral - Please call pt to schedule appt. Thank you 2022 023 [email or web address] Janes Vora MD, [address] [place], [address], 11/20/2023 08:58:27 Procedures None recorded. Surgeries None recorded. Imaging US, thyroid 2023 024 [email or web address] [facility], [address] [place], [address], 02/05/2024 14:20:47 MAMMO, screening , digital, bilateral 2023 024 RICHIE [facility], [address] [place], [address], 08/21/2023 13:06:19 US, thyroid 2023 024 [email or web address] [facility] [place], [address] [place], [address], 02/05/2024 14:20:52 MAMMO, screening , digital, bilateral 2023 024 [facility], [address] [place], [address], 09/08/2023 15:46:01 Medication Orders sertralin e 25 mg tablet [email or web address] [place] [address] [address] [facility] [place], [address], 10/23/2023 14:32:23 Unithroid 150 mcg tablet 2023 024 RICHIE [facility], [address] [facility], [place], [address], 10/23/2023 11:28:10 levothyro xine 150 mcg tablet 2023 024 [email or web address] [facility], [address] [facility], [place], [address], 07/24/2023 18:30:47 Symbicort 160 mcg-4.5 mcg/actua tion HFA aerosol inhaler 2022 023 [email or web address] [facility], [address] [facility], [place], [address], 03/22/2023 09:44:46 Patient TargetsNo targets recorded. Patient Instructions Encounter Date Encounter Id Patient Instructions Last Modified By Organization Details Last Modified Time 07/19/2023 [id number] dementia rating scale-2* [email or web address] 2 Not available 07/19/2023 11:34:17 alcohol misuse* [email or web address] 2 Not available 07/19/2023 11:34:17 depression screening* [email or web address] 2 Not available 07/19/2023 11:34:17 Timed Up and Go test (TUG)* [email or web address] 2 Not available 07/19/2023 11:34:16 multi-dimensiona l health assessment questionnaire* [email or web address] Not available 07/24/2023 15:51:19 advance directiv es: care instructions [email or web address] 2 Not available 07/19/2023 11:34:17 advance care planning: care instructions [email or web address] 2 Not available 07/19/2023 11:34:17 [place] Advance Directives [email or web address] Not available 07/19/2023 11:34:17 diabetic eye exam* [email or web address] Not availa ble 04/15/2024 17:30:56 Personalized Hea lth Plan and Screening Recommendations Advance Directives - Do you have one? No You have indicated that you are capable of preparing your advance care directive Advance Directives - Do we have your advance directive on file in your health record? Primary Prevention/Interven tion (prevents or decreases the chance of common diseases from occurring) Smoking Risk: Non Smoker Alcohol Misuse Screening: Negative Weight: Appropriate Overwei ght continue your current weight loss efforts try to lose 5% of your body weight try to lose 10% of your body weight Physical activity: Need more exercise/physical activity decrease sitting time to no more than 5hr/day Nutrition: Good Average Refer to attached handout Heart-Healthy Diet: After Your Visit Refer to attached handout DASH Diet: After Your Visit Fall Risk (screened today): Low Intermediate Refer to attached handout Preventing Falls: After your Visit Vaccines Pneumococcal: Ordered Recommended today Recommended today, but you have declined No further needed Influenza: Your next one in the fall of this year Chronic Disease Risks Stroke: Low Risk Intermediate Risk I have no recommendations Heart Attack: Low risk Intermediate Risk I have no recommendations Clogging of the Arteries: High risk I have no recommendations Act chau diagnosis, Continue current treatment plan Diabetes: High Risk Active diagnosis, Continue current treatment plan Secondary Prevention/Interven tion (detects treatable diseases before they may cause symptoms, disability, or ) Breast Cancer Screening with mammogram: Your next mammogram: Ordered Cervical/Uterine/Ov zi Cancer Screening: Your next PAP/pelvic in: Referral to bus operator Osteoporosis Screening: Date Screening Last Performed: 05/10/22 Colon Cancer Screening: Colonoscopy Date Screening Last Performed: 06/13/2018 Eye Disease Screening: Ordered Recommended today Dementia Risk: Low I have no recommendations Depression Screening: Negative [email or web address] Not available 07/19/2023 11:19:12 10/23/2023 [id number] diabetic eye exam* [email or web address] Not avai lable 04/22/2024 08:34:28 Reason for Referral Black And White Printer Operator Referral for Increased liver function Please call pt to schedule appt. Thank you Referring Physician: Sanjuanita Bach, Internal Medicine, Encounter Date: 11/23/2022 Nissan Sales Consultant Referral for Hype rglycemia Please call pt to schedule appt. Thank you Referring Physician: Sanjuanita Bach, Internal Medicine, Encounter Date: 11/23/2022 Eye Specialist Referral for Es sential hypertension Referring Physician: Noy Barrios, Encounter Date: 11/23/2022 Organizational Development Consultant Referral for Hy percalcemia Referring Physician: Sanjuanita Bach Internal Medicine, Encounter Date: 11/23/2022 Black And White Printer Operator Referral for Increased liver function Please call pt to schedule appt. Thank you Referring Physician: Sanjuanita Bach Internal Medicine, Encounter Date: 03/22/2023 Nissan Sales Consultant Referral for Hype rglycemia Please call pt to schedule appt. Thank you Referring Physician: Noy Barrios, Encounter Date: 03/22/2023 Eye Specialist Referral for Es sential hypertension Referring Physician: Noy Barrios, Encounter Date: 03/22/2023 Organizational Development Consultant Referral for Hy percalcemia Referring Physician: Noy Barrios, Encounter Date: 03/22/2023 Black And White Printer Operator Referral for Increased liver function Please call pt to schedule appt. Thank you Referring Physician: Noy Barrios, Encounter Date: 07/19/2023 Nissan Sales Consultant Referral for Hype rglycemia Please call pt to schedule appt. Thank you Referring Physician: Sanjuanita Bach Internal Medicine, Encounter Date: 07/19/2023 Eye Specialist Referral for Es sential hypertension Referring Physician: Noy Barrios, Encounter Date: 07/19/2023 Organizational Development Consultant Referral for Hy percalcemia Referring Physician: Noy Barrios, Encounter Date: 07/19/2023 Deputy Manager Referral for C hronic obstructive pulmonary disease Referring Physician: Noy Barrios Medicine, Encounter Date: 07/19/2023 Metal Rivet Machine Operator Referral fo r Bleeding from nose Referring Physician: Noy Barrios, Encounter Date: 07/19/2023 Referring Physician: Noy Barrios Medicine, Encounter Date: 07/19/2023 Black And White Printer Operator Referral for Increased liver function Please call pt to schedule appt. Thank you Referring Physician: Noy Barrios Medicine, Encounter Date: 10/23/2023 Nissan Sales Consultant Referral for Hype rglycemia Please call pt to schedule appt. Thank you Referring Physician: Noy Barrios Medicine, Encounter Date: 10/23/2023 Eye Specialist Referral for Es sential hypertension Referring Physician: Noy Barrios, Encounter Date: 10/23/2023 Organizational Development Consultant Referral for Hy percalcemia Referring Physician: Noy Barrios, Encounter Date: 10/23/2023 Deputy Manager Referral for C hronic obstructive pulmonary disease Referring Physician: Sanjuanita Bach [facility], Encounter Date: 10/23/2023 Metal Rivet Machine Operator Referral fo r Bleeding from nose Referring Physician: Sanjuanita Bach [facility] Medicine, Encounter Date: 10/23/2023 Referring Physician: Noy Barrios Medicine, Encounter Date: 10/23/2023 Endocrinology Referral for H ypercalcemia Referring Physician: Noy Barrios Medicine, Encounter Date: 10/23/2023 Orthopedic Surgeon Referral for Pain in right hip joint Referring Physician: Noy Barrios, Encounter Date: 10/23/2023 Results Created Date Observation Date Name Description Value Unit Range Abnormal Flag Note LastModifiedBy Organization Detail LastModifiedTime 10/19/19 23 10/18/2022 ABO RH patient ABO group and Rh O POSITI VE Not Available [facility] (Lab) [address] [place], [address], 10/18/2022 14:04:48 11/16/1911/15/2022 CBC/C OMPLE TE BLD COUNT W/DIF F white blood cells 5.0 x10'3 /uL 4.2-10 .8 Not Available [facility] (Lab) [address] [place], [address], 11/15/2022 13:12:50 11/16/1911/15/2022 CBC/C OMPLE TE BLD COUNT W/DIF F red blood cells 4.56 x10'6 /uL 3.80-5 .20 Not Available [facility] (Lab) [address] [place], [address], 11/15/2022 13:12:50 11/16/1911/15/2022 CBC/C OMPLE TE BLD COUNT W/DIF F hemoglobin 12.8 g/dL 12.0-1 5.6 Not Available [facility] (Lab) [address] [place], [address], 11/15/2022 13:12:50 11/16/1911/15/2022 CBC/C OMPLE TE BLD COUNT W/DIF F hematocrit 40.2 % 35.7-4 5.7 Not Available [facility] (Lab) [address] [place], [address], 11/15/2022 13:12:50 11/16/1911/15/2022 CBC/C OMPLE TE BLD COUNT W/DIF F mean red cell volume 88.2 fL 82.0-9 9.0 Not Available [facility] (Lab) [address] [place], [address], 11/15/2022 13:12:50 11/16/19 23 11/15/2022 CBC/C OMPLE TE BLD COUNT W/DIF F mean red cell hemoglobin 28.1 pg 27.0-3 3.0 Not Available [facility] (Lab) [address] [place], [address], 11/15/2022 13:12:50 11/16/19 23 11/15/2022 CBC/C OMPLE TE BLD COUNT W/DIF F mean RBC HGB concentratio n 31.8 g/dL 31.0-3 6.0 Not Available [facility] (Lab) [address] [place], [address], 11/15/2022 13:12:50 11/16/1911/15/2022 CBC/C OMPLE TE BLD COUNT W/DIF F red cell distribution width 13.9 % 11.8-1 5.5 Not Available [facility] (Lab) [address] [place], [address], 11/15/2022 13:12:50 11/16/1911/15/2022 CBC/C OMPLE TE BLD COUNT W/DIF F platelets 301 x10'3 /uL 150-40 0 Not Available [facility] (Lab) [address] [place], [address], 11/15/2022 13:12:50 11/16/1911/15/2022 CBC/C OMPLE TE BLD COUNT W/DIF F mean platelet volume 10.8 fL 9.0-12 .4 Not Available [facility] (Lab) [address] [place], [address], 11/15/2022 13:12:50 11/16/19 23 11/15/2022 CBC/C OMPLE TE BLD COUNT W/DIF F neutrophils 58.6 % 39.0-7 2.0 Not Available [facility] (Lab) [address] [place], [address], 11/15/2022 13:12:50 11/16/19 23 11/15/2022 CBC/C OMPLE TE BLD COUNT W/DIF F lymphocytes 22.4 % 16.0-4 7.0 Not Available [facility] (Lab) [address] [place], [address], 11/15/2022 13:12:50 11/16/1911/15/2022 CBC/C OMPLE TE BLD COUNT W/DIF F monocytes 8.9 % 5.0-12 .0 Not Available [facility] (Lab) [address] [place], [address], 11/15/2022 13:12:50 11/16/1911/15/2022 CBC/C OMPLE TE BLD COUNT W/DIF F eosinophils 8.9 % 1.0-7. 0 high Not Available [facility] (Lab) [address] [place], [address], 11/15/2022 13:12:50 11/16/1911/15/2022 CBC/C OMPLE TE BLD COUNT W/DIF F basophils 1.0 % 0.0-2. 0 Not Available [facility] (Lab) [address] [place], [address], 11/15/2022 13:12:50 11/16/1911/15/2022 CBC/C OMPLE TE BLD COUNT W/DIF F immature granulocytes 0.2 % 0.00-0 .50 Not Available [facility] (Lab) [address] [place], [address], 11/15/2022 13:12:50 11/16/1911/15/2022 CBC/C OMPLE TE BLD COUNT W/DIF F neutrophils, absolute count 2.95 x10'3 /uL 1.5-8. 0 Not Available [facility] (Lab) [address] [place], [address], 11/15/2022 13:12:50 11/16/19 23 11/15/2022 CBC/C OMPLE TE BLD COUNT W/DIF F lymphocytes, absolute count 1.13 x10'3 /uL 1.07-3 .43 Not Available [facility] (Lab) [address] [place], [address], 11/15/2022 13:12:50 11/16/1911/15/2022 CBC/C OMPLE TE BLD COUNT W/DIF F monocytes, absolute count 0.45 x10'3 /uL 0.29-0 .99 Not Available [facility] (Lab) [address] [place], [address], 11/15/2022 13:12:50 11/16/19 23 11/15/2022 CBC/C OMPLE TE BLD COUNT W/DIF F eosinophils, absolute count 0.45 x10'3 /uL 0.02-0 .53 Not Available [facility] (Lab) [address] [place], [address], 11/15/2022 13:12:50 11/16/19 23 11/15/2022 CBC/C OMPLE TE BLD COUNT W/DIF F basophils, absolute count 0.05 x10'3 /uL 0.01-0 .08 Not Available [facility] (Lab) [address] [place], [address], 11/15/2022 13:12:50 11/16/19 23 11/15/2022 CBC/C OMPLE TE BLD COUNT W/DIF F immature granulocytes ,absolute 0.01 x10'3 /uL 0.00-0 .05 Not Available [facility] (Lab) [address] [place], [address], 11/15/2022 13:12:50 11/16/19 23 11/15/2022 CBC/C OMPLE TE BLD COUNT W/DIF F nucleated red blood cells 0.0 % -0 Not Available [facility] (Lab) [address] [place], [address], 11/15/2022 13:12:50 11/16/19 23 11/15/2022 CBC/C OMPLE TE BLD COUNT W/DIF F NRBC# 0.00 x10'3 /uL Not Available [facility] (Lab) [address] [place], [address], 11/15/2022 13:12:50 11/16/19 23 11/15/2022 LIPID PANEL cholesterol 163 mg/dL 140-19 9 NIH MATEUS NSUS RECOM MENDA TION FOR SAEED STERO L: ADULT CHILD LOW RISK: <200 <170 BORDE RLINE : <200- 239 ----- HIGH RISK: >240 >200 Not Available [facility] (Lab) [address] [place], [address], 11/15/2022 13:20:10 11/16/19 23 11/15/2022 LIPID PANEL triglyceride s 145 mg/dL 0-150 NIH MATEUS NSUS REPOR T RECOM MENDA TION FOR TRIGL YCERI DAVID: ADULT CHILD LOW RISK: <150 ----- BODER LINE: 150-1 99 ----- HIGH RISK: >200 ----- Not Available [facility] (Lab) [address] [place], [address], 11/15/2022 13:20:10 11/16/19 23 11/15/2022 LIPID PANEL HDL cholesterol 38 mg/dL 40- low Not Available [facility] (Lab) [address] [place], [address], 11/15/2022 13:20:10 11/16/1911/15/2022 LIPID PANEL LDL cholesterol, calculated 96 mg/dL 0-130 NIH MATEUS NSUS REPOR T RECOM MENDA TIONS FOR LDL: ADULT CHILD LOW RISK <130 <110 (OPTI MAL LDL) <100 ----- BORDE RLINE : 130-1 59 ----- HIGH RISK: >160 >130 A TRIGL YCERI DE RESUL T >400 INVAL IDATE S THE CALCU LATIO N FOR LDL FRACT IONAT ION - THE LDL RESUL T WILL NOT BE REPOR MIHIR. Not Available [facility] (Lab) [address] [place], [address], 11/15/2022 13:20:10 11/16/1911/15/2022 COMPR EHENS CHAU METAB OLIC PANEL sodium 139 mmol/ L 137-14 5 Not Available [facility] (Lab) [address] [place], [address], 11/15/2022 13:20:27 11/16/1911/15/2022 COMPR EHENS CHAU METAB OLIC PANEL potassium 4.5 mmol/ L 3.5-5. 1 Not Available [facility] (Lab) [address] [place], [address], 11/15/2022 13:20:27 11/16/19 23 11/15/2022 COMPR EHENS CHAU METAB OLIC PANEL chloride 102 mmol/ L 98-107 Not Available [facility] (Lab) [address] [place], [address], 11/15/2022 13:20:27 11/16/19 23 11/15/2022 COMPR EHENS CHAU METAB OLIC PANEL carbon dioxide 29 mmol/ L 22-30 Not Available [facility] (Lab) [address] [place], [address], 11/15/2022 13:20:27 11/16/19 23 11/15/2022 COMPR EHENS CHAU METAB OLIC PANEL anion gap 12.5 mmol/ L 14-22 low Not Available [facility] (Lab) [address] [place], [address], 11/15/2022 13:20:27 11/16/19 23 11/15/2022 COMPR EHENS CHAU METAB OLIC PANEL glucose 130 mg/dL 70-99 high Not Available [facility] (Lab) [address] [place], [address], 11/15/2022 13:20:27 11/16/19 23 11/15/2022 COMPR EHENS CHAU METAB OLIC PANEL BUN 15 mg/dL 8-19 Not Available [facility] (Lab) [address] [place], [address], 11/15/2022 13:20:27 11/16/19 23 11/15/2022 COMPR EHENS CHAU METAB OLIC PANEL creatinine 0.67 mg/dL 0.66-1 .25 Not Available [facility] (Lab) [address] [place], [address], 11/15/2022 13:20:27 11/16/1911/15/2022 COMPR EHENS CHAU METAB OLIC PANEL GFR >60 Refer ence Range : [place] [facility] GFR Healt hy Adult : >60 mL/mi n/1.7 3 m2 Chron ic Kidne y Disea se: 15-60 mL/mi n/1.7 3 m2 Kidne y Failu re: <15/m L/min /1.73 m2 www.n iddk. nih.g ov The MDRD study equat ion has not been valid ated in child laura <18 years of age; pregn ant women ; the elder ly >85 years of age; or in some racia l or ethni c subgr oups, such as Hisne nics. Outsi de the valid ated liz eters , estim ated GFR is less accur ate, requi ring clini rodgre judgm ent on a case- by-ca se basis . Clini rodger inter preta tion for other races and ages must be made by the clini damian. The MDRD study equat ion has not been valid ated for the evalu ation of serum creat inine relat ed to nutri linus l statu s or medic ation usage . For perso ns <18 years of age, a pedia tric GFR calcu lator is avail able on the [facility] websi te: https :[email or web address] [email or web address].samuel [email or web address].o mariola/pr howardess ional s/kdo qi/gf r_cal culat or Not Available [facility] (Lab) [address] [place], [address], 11/15/2022 13:20:27 11/16/19 23 11/15/2022 COMPR EHENS CHAU METAB OLIC PANEL alkaline phosphatase 86 U/L 38-126 Not Available [facility] (Lab) [address] [place], [address], 11/15/2022 13:20:27 11/16/1911/15/2022 COMPR EHENS CHAU METAB OLIC PANEL alanine aminotransfe rase 19 U/L 0-35 Not Available [facility] (Lab) [address] [place], [address], 11/15/2022 13:20:27 11/16/1911/15/2022 COMPR EHENS CHAU METAB OLIC PANEL aspartate aminotransfe rase 19 U/L 15-37 Not Available [facility] (Lab) [address] [place], [address], 11/15/2022 13:20:27 11/16/19 23 11/15/2022 COMPR EHENS CHAU METAB OLIC PANEL bilirubin, total 0.60 mg/dL 0.20-1 .30 Not Available [facility] (Lab) [address] [place], [address], 11/15/2022 13:20:27 11/16/19 23 11/15/2022 COMPR EHENS CHAU METAB OLIC PANEL calcium 10.9 mg/dL 8.4-10 .2 high Not Available [facility] (Lab) [address] [place], [address], 11/15/2022 13:20:27 11/16/19 23 11/15/2022 COMPR EHENS CHAU METAB OLIC PANEL total protein 7.5 g/dL 6.3-8. 2 Not Available [facility] (Lab) [address] [place], [address], 11/15/2022 13:20:27 11/16/19 23 11/15/2022 COMPR EHENS CHAU METAB OLIC PANEL albumin 4.4 g/dL 3.0-4. 4 Not Available [facility] (Lab) [address] [place], [address], 11/15/2022 13:20:27 11/16/19 23 11/15/2022 COMPR EHENS CHAU METAB OLIC PANEL globulin 3.1 g/dL 2.6-4. 2 Not Available [facility] (Lab) [address] [place], [address], 11/15/2022 13:20:27 11/16/1911/15/2022 COMPR EHENS CHAU METAB OLIC PANEL A/G ratio 1.4 ratio 1.0-2. 0 Not Available [facility] (Lab) [address] [place], [address], 11/15/2022 13:20:27 11/16/19 23 11/15/2022 T4 FREE free T4 1.55 NG/dL 0.78-2 .19 Not Available [facility] (Lab) [address] [place], [address], 11/15/2022 13:33:01 11/16/1911/15/2022 TSH thyroid-stim ulating hormone 3.130 uIU/m L 0.465- 4.680 Not Available [facility] (Lab) [address] [place], [address], 11/15/2022 13:46:20 11/16/19 23 11/15/2022 VITAM IN D 25-HY DROXY vd25oh 39.1 NG/mL 30-100 Vitam in D Statu s: Defic ient: <20 ng/mL Insuf ficie nt: 20-29 ng/mL Suffi cient : 30-10 0 ng/mL Not Available [facility] (Lab) [address] [place], [address], 11/15/2022 14:16:27 11/16/19 23 11/15/2022 MICRO ALBUM IN RANDO M URINE microalbumin , urine <6.0 mg/L 0.0-16 .6 Not Available [facility] (Lab) [address] [place], [address], 11/15/2022 14:21:20 11/16/1911/15/2022 HEMOG LOBIN A1C HA1C 5.8 % 4.0-6. 0 Diabe shaun Scree efren Crite len: <5.7% Consi stent with absen ce of diabe shaun 5.7-6 .4% Consi stent with incre ased risk for diabe shaun (pred iabet es) >OR=6 .5% Consi stent with diabe shaun REFER ENCE: Diabe shaun Care 39(Enriquez ppl.1 ):s13 -s22 Not Available [facility] (Lab) [address] [place], [address], 11/15/2022 14:35:31 01/14/20 23 01/13/2023 HEMOG LOBIN A1C HA1C 6.3 % 4.0-6. 0 high Diabe shaun Scree efren Crite len: <5.7% Consi stent with absen ce of diabe shaun 5.7-6 .4% Consi stent with incre ased risk for diabe shaun (pred iabet es) >OR=6 .5% Consi stent with diabe shaun REFER ENCE: Diabe shaun Care 39(Enriquez ppl.1 ):s13 -s22 Not Available [facility] (Lab) [address] [place], [address], 01/13/2023 17:23:06 03/13/19 24 03/13/2023 CBC/C OMPLE TE BLD COUNT W/DIF F white blood cells 5.3 x10'3 /uL 4.2-10 .8 Not Available [facility] (Lab) [address] [facility], [address], 03/13/2023 13:00:44 03/13/19 24 03/13/2023 CBC/C OMPLE TE BLD COUNT W/DIF F red blood cells 4.48 x10'6 /uL 3.80-5 .20 Not Available [facility] (Lab) [address] [place], [address], 03/13/2023 13:00:44 03/13/19 24 03/13/2023 CBC/C OMPLE TE BLD COUNT W/DIF F hemoglobin 12.2 g/dL 12.0-1 5.6 Not Available [facility] (Lab) [address] [place], [address], 03/13/2023 13:00:44 03/13/19 24 03/13/2023 CBC/C OMPLE TE BLD COUNT W/DIF F hematocrit 38.6 % 35.7-4 5.7 Not Available [facility] (Lab) [address] [place], [address], 03/13/2023 13:00:44 03/13/19 24 03/13/2023 CBC/C OMPLE TE BLD COUNT W/DIF F mean red cell volume 86.2 fL 82.0-9 9.0 Not Available [facility] (Lab) [address] [place], [address], 03/13/2023 13:00:44 03/13/19 24 03/13/2023 CBC/C OMPLE TE BLD COUNT W/DIF F mean red cell hemoglobin 27.2 pg 27.0-3 3.0 Not Available [facility] (Lab) [address] [place], [address], 03/13/2023 13:00:44 03/13/19 24 03/13/2023 CBC/C OMPLE TE BLD COUNT W/DIF F mean RBC HGB concentratio n 31.6 g/dL 31.0-3 6.0 Not Available [facility] (Lab) [address] [place], [address], 03/13/2023 13:00:44 03/13/19 24 03/13/2023 CBC/C OMPLE TE BLD COUNT W/DIF F red cell distribution width 16.0 % 11.8-1 5.5 high Not Available [facility] (Lab) [address] [place], [address], 03/13/2023 13:00:44 03/13/19 24 03/13/2023 CBC/C OMPLE TE BLD COUNT W/DIF F platelets 334 x10'3 /uL 150-40 0 Not Available [facility] (Lab) [address] [place], [address], 03/13/2023 13:00:44 03/13/19 24 03/13/2023 CBC/C OMPLE TE BLD COUNT W/DIF F mean platelet volume 10.8 fL 9.0-12 .4 Not Available [facility] (Lab) [address] [place], [address], 03/13/2023 13:00:44 03/13/19 24 03/13/2023 CBC/C OMPLE TE BLD COUNT W/DIF F neutrophils 58.5 % 39.0-7 2.0 Not Available [facility] (Lab) [address] [place], [address], 03/13/2023 13:00:44 03/13/19 24 03/13/2023 CBC/C OMPLE TE BLD COUNT W/DIF F lymphocytes 18.9 % 16.0-4 7.0 Not Available [facility] (Lab) [address] [place], [address], 03/13/2023 13:00:44 03/13/19 24 03/13/2023 CBC/C OMPLE TE BLD COUNT W/DIF F monocytes 9.8 % 5.0-12 .0 Not Available [facility] (Lab) [address] [place], [address], 03/13/2023 13:00:44 03/13/19 24 03/13/2023 CBC/C OMPLE TE BLD COUNT W/DIF F eosinophils 11.3 % 1.0-7. 0 high Not Available [facility] (Lab) [address] [place], [address], 03/13/2023 13:00:44 03/13/19 24 03/13/2023 CBC/C OMPLE TE BLD COUNT W/DIF F basophils 1.3 % 0.0-2. 0 Not Available [facility] (Lab) [address] [place], [address], 03/13/2023 13:00:44 03/13/19 24 03/13/2023 CBC/C OMPLE TE BLD COUNT W/DIF F immature granulocytes 0.2 % 0.00-0 .50 Not Available [facility] (Lab) [address] [place], [address], 03/13/2023 13:00:44 03/13/19 24 03/13/2023 CBC/C OMPLE TE BLD COUNT W/DIF F neutrophils, absolute count 3.12 x10'3 /uL 1.5-8. 0 Not Available [facility] (Lab) [address] [place], [address], 03/13/2023 13:00:44 03/13/19 24 03/13/2023 CBC/C OMPLE TE BLD COUNT W/DIF F lymphocytes, absolute count 1.01 x10'3 /uL 1.07-3 .43 low Not Available [facility] (Lab) [address] [place], [address], 03/13/2023 13:00:44 03/13/19 24 03/13/2023 CBC/C OMPLE TE BLD COUNT W/DIF F monocytes, absolute count 0.52 x10'3 /uL 0.29-0 .99 Not Available [facility] (Lab) [address] [place], [address], 03/13/2023 13:00:44 03/13/19 24 03/13/2023 CBC/C OMPLE TE BLD COUNT W/DIF F eosinophils, absolute count 0.60 x10'3 /uL 0.02-0 .53 high Not Available [facility] (Lab) [address] [place], [address], 03/13/2023 13:00:44 03/13/19 24 03/13/2023 CBC/C OMPLE TE BLD COUNT W/DIF F basophils, absolute count 0.07 x10'3 /uL 0.01-0 .08 Not Available [facility] (Lab) [address] [place], [address], 03/13/2023 13:00:44 03/13/19 24 03/13/2023 CBC/C OMPLE TE BLD COUNT W/DIF F immature granulocytes ,absolute 0.01 x10'3 /uL 0.00-0 .05 Not Available [facility] (Lab) [address] [place], [address], 03/13/2023 13:00:44 03/13/19 24 03/13/2023 CBC/C OMPLE TE BLD COUNT W/DIF F nucleated red blood cells 0.0 % -0 Not Available [facility] (Lab) [address] [place], [address], 03/13/2023 13:00:44 03/13/19 24 03/13/2023 CBC/C OMPLE TE BLD COUNT W/DIF F NRBC# 0.00 x10'3 /uL Not Available [facility] (Lab) [address] [place], [address], 03/13/2023 13:00:44 03/13/19 24 03/13/2023 MICRO ALBUM IN RANDO M URINE microalbumin , urine 8.2 mg/L 0.0-16 .6 Not Available [facility] (Lab) [address] [place], [address], 03/13/2023 13:03:32 03/13/19 24 03/13/2023 T4 FREE free T4 1.40 NG/dL 0.78-2 .19 Not Available [facility] (Lab) [address] [place], [address], 03/13/2023 13:55:34 03/13/19 24 03/13/2023 VITAM IN D 25-HY DROXY vd25oh 30.8 NG/mL 30-100 Vitam in D Statu s: Defic ient: <20 ng/mL Insuf ficie nt: 20-29 ng/mL Suffi cient : 30-10 0 ng/mL Not Available [facility] (Lab) [address] [place], [address], 03/13/2023 13:55:44 03/13/19 24 03/13/2023 TSH thyroid-stim ulating hormone 5.300 uIU/m L 0.465- 4.680 high Not Available [facility] (Lab) [address] [place], [address], 03/13/2023 14:04:38 03/13/19 24 03/13/2023 HEMOG LOBIN A1C HA1C 5.5 % 4.0-6. 0 Diabe shaun Scree efren Crite len: <5.7% Consi stent with absen ce of diabe shaun 5.7-6 .4% Consi stent with incre ased risk for diabe shaun (pred iabet es) >OR=6 .5% Consi stent with diabe shaun REFER ENCE: Diabe shaun Care 2016, 39(Enriquez ppl.1 ):s13 -s22 Not Available [facility] (Lab) [address] [place], [address], 03/13/2023 14:33:53 03/13/19 24 03/13/2023 LIPID PANEL cholesterol 181 mg/dL 140-19 9 NIH MATEUS NSUS RECOM MENDA TION FOR SAEED STERO L: ADULT CHILD LOW RISK: <200 <170 BORDE RLINE : <200- 239 ----- HIGH RISK: >240 >200 Not Available [facility] (Lab) [address] [place], [address], 03/13/2023 14:45:59 03/13/19 24 03/13/2023 LIPID PANEL triglyceride s 200 mg/dL 0-150 high NIH MATEUS NSUS REPOR T RECOM MENDA TION FOR TRIGL YCERI DAVID: ADULT CHILD LOW RISK: <150 ----- BODER LINE: 150-1 99 ----- HIGH RISK: >200 ----- Not Available [facility] (Lab) [address] [place], [address], 03/13/2023 14:45:59 03/13/19 24 03/13/2023 LIPID PANEL HDL cholesterol 42 mg/dL 40- Not Available [facility] (Lab) [address] [place], [address], 03/13/2023 14:45:59 03/13/19 24 03/13/2023 LIPID PANEL LDL cholesterol, calculated 99 mg/dL 0-130 NIH MATEUS NSUS REPOR T RECOM MENDA TIONS FOR LDL: ADULT CHILD LOW RISK <130 <110 (OPTI MAL LDL) <100 ----- BORDE RLINE : 130-1 59 ----- HIGH RISK: >160 >130 A TRIGL YCERI DE RESUL T >400 INVAL IDATE S THE CALCU LATIO N FOR LDL FRACT IONAT ION - THE LDL RESUL T WILL NOT BE REPOR MIHIR. Not Available [facility] (Lab) [address] [place], [address], 03/13/2023 14:45:59 03/13/19 24 03/13/2023 COMPR EHENS CHAU METAB OLIC PANEL sodium 138 mmol/ L 137-14 5 Not Available [facility] (Lab) [address] [place], [address], 03/13/2023 14:46:07 03/13/19 24 03/13/2023 COMPR EHENS CHAU METAB OLIC PANEL potassium 4.5 mmol/ L 3.5-5. 1 Not Available [facility] (Lab) [address] [place], [address], 03/13/2023 14:46:07 03/13/19 24 03/13/2023 COMPR EHENS CHAU METAB OLIC PANEL chloride 103 mmol/ L 98-107 Not Available [facility] (Lab) [address] [place], [address], 03/13/2023 14:46:07 03/13/19 24 03/13/2023 COMPR EHENS CHAU METAB OLIC PANEL carbon dioxide 26 mmol/ L 22-30 Not Available [facility] (Lab) [address] [place], [address], 03/13/2023 14:46:07 03/13/19 24 03/13/2023 COMPR EHENS CHAU METAB OLIC PANEL anion gap 13.5 mmol/ L 14-22 low Not Available [facility] (Lab) [address] [place], [address], 03/13/2023 14:46:07 03/13/19 24 03/13/2023 COMPR EHENS CHAU METAB OLIC PANEL glucose 133 mg/dL 70-99 high Not Available [facility] (Lab) [address] [place], [address], 03/13/2023 14:46:07 03/13/19 24 03/13/2023 COMPR EHENS CHAU METAB OLIC PANEL BUN 16 mg/dL 8-19 Not Available [facility] (Lab) [address] [place], [address], 03/13/2023 14:46:07 03/13/19 24 03/13/2023 COMPR EHENS CHAU METAB OLIC PANEL creatinine 0.69 mg/dL 0.66-1 .25 Not Available [facility] (Lab) [address] [place], [address], 03/13/2023 14:46:07 03/13/19 24 03/13/2023 COMPR EHENS CHAU METAB OLIC PANEL GFR >60 Refer ence Range : [place] [facility] GFR Healt hy Adult : >60 mL/mi n/1.7 3 m2 Chron ic Kidne y Disea se: 15-60 mL/mi n/1.7 3 m2 Kidne y Failu re: <15/m L/min /1.73 m2 www.n iddk. nih.g ov The MDRD study equat ion has not been valid ated in child laura <18 years of age; pregn ant women ; the elder ly >85 years of age; or in some racia l or ethni c subgr oups, such as [facility] nics. Outsi de the valid ated liz eters , estim ated GFR is less accur ate, requi ring clini rodger judgm ent on a case- by-ca se basis . Clini rodger inter preta tion for other races and ages must be made by the clini damian. The MDRD study equat ion has not been valid ated for the evalu ation of serum creat inine relat ed to nutri linus l statu s or medic ation usage . For perso ns <18 years of age, a pedia tric GFR calcu lator is avail able on the [facility] websi te: https :[email or web address] moreno.samuel [email or web address].o rg/pr ofess ional s/kdo qi/gf r_cal culat or Not Available [facility] (Lab) [address] [place], [address], 03/13/2023 14:46:07 03/13/19 24 03/13/2023 COMPR EHENS CHAU METAB OLIC PANEL alkaline phosphatase 95 U/L 38-126 Not Available [facility] (Lab) [address] [place], [address], 03/13/2023 14:46:07 03/13/19 24 03/13/2023 COMPR EHENS CHAU METAB OLIC PANEL alanine aminotransfe rase 19 U/L 0-35 Not Available [facility] (Lab) [address] [place], [address], 03/13/2023 14:46:07 03/13/19 24 03/13/2023 COMPR EHENS CHAU METAB OLIC PANEL aspartate aminotransfe rase 20 U/L 15-37 Not Available [facility] (Lab) [address] [place], [address], 03/13/2023 14:46:07 03/13/19 24 03/13/2023 COMPR EHENS CHAU METAB OLIC PANEL bilirubin, total 0.80 mg/dL 0.20-1 .30 Not Available [facility] (Lab) [address] [place], [address], 03/13/2023 14:46:07 03/13/19 24 03/13/2023 COMPR EHENS CHAU METAB OLIC PANEL calcium 10.7 mg/dL 8.4-10 .2 high Not Available [facility] (Lab) [address] [place], [address], 03/13/2023 14:46:07 03/13/19 24 03/13/2023 COMPR EHENS CHAU METAB OLIC PANEL total protein 7.6 g/dL 6.3-8. 2 Not Available [facility] (Lab) [address] [place], [address], 03/13/2023 14:46:07 03/13/19 24 03/13/2023 COMPR EHENS CHAU METAB OLIC PANEL albumin 4.6 g/dL 3.0-4. 4 high Not Available [facility] (Lab) [address] [place], [address], 03/13/2023 14:46:07 03/13/19 24 03/13/2023 COMPR EHENS CHAU METAB OLIC PANEL globulin 3.0 g/dL 2.6-4. 2 Not Available [facility] (Lab) [address] [place], [address], 03/13/2023 14:46:07 03/13/19 24 03/13/2023 COMPR EHENS CHAU METAB OLIC PANEL A/G ratio 1.5 ratio 1.0-2. 0 Not Available [facility] (Lab) [address] [place], [address], 03/13/2023 14:46:07 07/12/19 24 07/12/2023 CBC/C OMPLE TE BLD COUNT W/DIF F white blood cells 5.5 x10'3 /uL 4.2-10 .8 Not Available [facility] (Lab) [address] [place], [address], 07/12/2023 13:52:06 07/12/19 24 07/12/2023 CBC/C OMPLE TE BLD COUNT W/DIF F red blood cells 4.11 x10'6 /uL 3.80-5 .20 Not Available [facility] (Lab) [address] [place], [address], 07/12/2023 13:52:06 07/12/19 24 07/12/2023 CBC/C OMPLE TE BLD COUNT W/DIF F hemoglobin 11.1 g/dL 12.0-1 5.6 low Not Available [facility] (Lab) [address] [place], [address], 07/12/2023 13:52:06 07/12/19 24 07/12/2023 CBC/C OMPLE TE BLD COUNT W/DIF F hematocrit 35.2 % 35.7-4 5.7 low Not Available [facility] (Lab) [address] [place], [address], 07/12/2023 13:52:06 07/12/19 24 07/12/2023 CBC/C OMPLE TE BLD COUNT W/DIF F mean red cell volume 85.6 fL 82.0-9 9.0 Not Available [facility] (Lab) [address] [place], [address], 07/12/2023 13:52:06 07/12/19 24 07/12/2023 CBC/C OMPLE TE BLD COUNT W/DIF F mean red cell hemoglobin 27.0 pg 27.0-3 3.0 Not Available [facility] (Lab) [address] [place], [address], 07/12/2023 13:52:06 07/12/19 24 07/12/2023 CBC/C OMPLE TE BLD COUNT W/DIF F mean RBC HGB concentratio n 31.5 g/dL 31.0-3 6.0 Not Available [facility] (Lab) [address] [place], [address], 07/12/2023 13:52:06 07/12/19 24 07/12/2023 CBC/C OMPLE TE BLD COUNT W/DIF F red cell distribution width 16.2 % 11.8-1 5.5 high Not Available [facility] (Lab) [address] [place], [address], 07/12/2023 13:52:06 07/12/19 24 07/12/2023 CBC/C OMPLE TE BLD COUNT W/DIF F platelets 361 x10'3 /uL 150-40 0 Not Available [facility] (Lab) [address] [place], [address], 07/12/2023 13:52:06 07/12/19 24 07/12/2023 CBC/C OMPLE TE BLD COUNT W/DIF F mean platelet volume 10.6 fL 9.0-12 .4 Not Available [facility] (Lab) [address] [place], [address], 07/12/2023 13:52:06 07/12/19 24 07/12/2023 CBC/C OMPLE TE BLD COUNT W/DIF F neutrophils 63.0 % 39.0-7 2.0 Not Available [facility] (Lab) [address] [place], [address], 07/12/2023 13:52:06 07/12/19 24 07/12/2023 CBC/C OMPLE TE BLD COUNT W/DIF F lymphocytes 18.7 % 16.0-4 7.0 Not Available [facility] (Lab) [address] [place], [address], 07/12/2023 13:52:06 07/12/19 24 07/12/2023 CBC/C OMPLE TE BLD COUNT W/DIF F monocytes 9.3 % 5.0-12 .0 Not Available [facility] (Lab) [address] [place], [address], 07/12/2023 13:52:06 07/12/19 24 07/12/2023 CBC/C OMPLE TE BLD COUNT W/DIF F eosinophils 7.9 % 1.0-7. 0 high Not Available [facility] (Lab) [address] [place], [address], 07/12/2023 13:52:06 07/12/19 24 07/12/2023 CBC/C OMPLE TE BLD COUNT W/DIF F basophils 0.9 % 0.0-2. 0 Not Available [facility] (Lab) [address] [place], [address], 07/12/2023 13:52:06 07/12/19 24 07/12/2023 CBC/C OMPLE TE BLD COUNT W/DIF F immature granulocytes 0.2 % 0.00-0 .50 Not Available [facility] (Lab) [address] [place], [address], 07/12/2023 13:52:06 07/12/19 24 07/12/2023 CBC/C OMPLE TE BLD COUNT W/DIF F neutrophils, absolute count 3.44 x10'3 /uL 1.5-8. 0 Not Available [facility] (Lab) [address] [place], [address], 07/12/2023 13:52:06 07/12/19 24 07/12/2023 CBC/C OMPLE TE BLD COUNT W/DIF F lymphocytes, absolute count 1.02 x10'3 /uL 1.07-3 .43 low Not Available [facility] (Lab) [address] [place], [address], 07/12/2023 13:52:06 07/12/19 24 07/12/2023 CBC/C OMPLE TE BLD COUNT W/DIF F monocytes, absolute count 0.51 x10'3 /uL 0.29-0 .99 Not Available [facility] (Lab) [address] [place], [address], 07/12/2023 13:52:06 07/12/19 24 07/12/2023 CBC/C OMPLE TE BLD COUNT W/DIF F eosinophils, absolute count 0.43 x10'3 /uL 0.02-0 .53 Not Available [facility] (Lab) [address] [place], [address], 07/12/2023 13:52:06 07/12/19 24 07/12/2023 CBC/C OMPLE TE BLD COUNT W/DIF F basophils, absolute count 0.05 x10'3 /uL 0.01-0 .08 Not Available [facility] (Lab) [address] [place], [address], 07/12/2023 13:52:06 07/12/19 24 07/12/2023 CBC/C OMPLE TE BLD COUNT W/DIF F immature granulocytes ,absolute 0.01 x10'3 /uL 0.00-0 .05 Not Available [facility] (Lab) [address] [place], [address], 07/12/2023 13:52:06 07/12/19 24 07/12/2023 CBC/C OMPLE TE BLD COUNT W/DIF F nucleated red blood cells 0.0 % -0 Not Available [facility] (Lab) [address] [place], [address], 07/12/2023 13:52:06 07/12/19 24 07/12/2023 CBC/C OMPLE TE BLD COUNT W/DIF F NRBC# 0.00 x10'3 /uL Not Available [facility] (Lab) [address] [place], [address], 07/12/2023 13:52:06 07/12/19 24 07/12/2023 LIPID PANEL cholesterol 190 mg/dL 140-19 9 NIH MATEUS NSUS RECOM MENDA TION FOR SAEED STERO L: ADULT CHILD LOW RISK: <200 <170 BORDE RLINE : <200- 239 ----- HIGH RISK: >240 >200 Not Available [facility] (Lab) [address] [place], [address], 07/12/2023 14:23:16 07/12/19 24 07/12/2023 LIPID PANEL triglyceride s 145 mg/dL 0-150 NIH MATEUS NSUS REPOR T RECOM MENDA TION FOR TRIGL YCERI DAVID: ADULT CHILD LOW RISK: <150 ----- BODER LINE: 150-1 99 ----- HIGH RISK: >200 ----- Not Available [facility] (Lab) [address] [place], [address], 07/12/2023 14:23:16 07/12/19 24 07/12/2023 LIPID PANEL HDL cholesterol 45 mg/dL 40- Not Available [facility] (Lab) [address] [place], [address], 07/12/2023 14:23:16 07/12/19 24 07/12/2023 LIPID PANEL LDL cholesterol, calculated 116 mg/dL 0-130 NIH MATEUS NSUS REPOR T RECOM MENDA TIONS FOR LDL: ADULT CHILD LOW RISK <130 <110 (OPTI MAL LDL) <100 ----- JOSHDE RLINE : 130-1 59 ----- HIGH RISK: >160 >130 A TRIGL YCERI DE RESUL T >400 INVAL IDATE S THE CALCU LATIO N FOR LDL FRACT IONAT ION - THE LDL RESUL T WILL NOT BE REPOR MIHIR. Not Available [facility] (Lab) [address] [place], [address], 07/12/2023 14:23:16 07/12/19 24 07/12/2023 COMPR EHENS CHAU METAB OLIC PANEL sodium 138 mmol/ L 137-14 5 Not Available [facility] (Lab) [address] [place], [address], 07/12/2023 14:23:28 07/12/19 24 07/12/2023 COMPR EHENS CHAU METAB OLIC PANEL potassium 4.6 mmol/ L 3.5-5. 1 Not Available [facility] (Lab) [address] [place], [address], 07/12/2023 14:23:28 07/12/19 24 07/12/2023 COMPR EHENS CHAU METAB OLIC PANEL chloride 105 mmol/ L 98-107 Not Available [facility] (Lab) [address] [place], [address], 07/12/2023 14:23:28 07/12/19 24 07/12/2023 COMPR EHENS CHAU METAB OLIC PANEL carbon dioxide 26 mmol/ L 22-30 Not Available [facility] (Lab) [address] [place], [address], 07/12/2023 14:23:28 07/12/19 24 07/12/2023 COMPR EHENS CHAU METAB OLIC PANEL anion gap 11.6 mmol/ L 14-22 low Not Available [facility] (Lab) [address] [place], [address], 07/12/2023 14:23:28 07/12/19 24 07/12/2023 COMPR EHENS CHAU METAB OLIC PANEL glucose 124 mg/dL 70-99 high Not Available [facility] (Lab) [address] [place], [address], 07/12/2023 14:23:28 07/12/19 24 07/12/2023 COMPR EHENS CHAU METAB OLIC PANEL BUN 14 mg/dL 8-19 Not Available [facility] (Lab) [address] [place], [address], 07/12/2023 14:23:28 07/12/19 24 07/12/2023 COMPR EHENS CHAU METAB OLIC PANEL creatinine 0.74 mg/dL 0.66-1 .25 Not Available [facility] (Lab) [address] [place], [address], 07/12/2023 14:23:28 07/12/19 24 07/12/2023 COMPR EHENS CHAU METAB OLIC PANEL GFR >60 Refer ence Range : [place] [facility] GFR Healt hy Adult : >60 mL/mi n/1.7 3 m2 Chron ic Kidne y Disea se: 15-60 mL/mi n/1.7 3 m2 Kidne y Failu re: <15/m L/min /1.73 m2 www.n [email or web address] nih.g ov The MDRD study equat ion has not been valid ated in child laura <18 years of age; pregn ant women ; the elder ly >85 years of age; or in some racia l or ethni c subgr oups, such as Hispa nics. Outsi de the valid ated liz eters , estim ated GFR is less accur ate, requi ring clini rodger judgm ent on a case- by-ca se basis . Clini rodger inter preta tion for other races and ages must be made by the clini damian. The MDRD study equat ion has not been valid ated for the evalu ation of serum creat inine relat ed to nutri linus l statu s or medic ation usage . For perso ns <18 years of age, a pedia tric GFR calcu lator is avail able on the [facility] websi te: [email or web address] :[email or web address] rg/pr ofess ional [email or web address] qi/gf r_cal culat or Not Available [facility] (Lab) [address] [place], [address], 07/12/2023 14:23:28 07/12/19 24 07/12/2023 COMPR EHENS CHAU METAB OLIC PANEL alkaline phosphatase 91 U/L 38-126 Not Available [facility] (Lab) [address] [place], [address], 07/12/2023 14:23:28 07/12/19 24 07/12/2023 COMPR EHENS CHAU METAB OLIC PANEL alanine aminotransfe rase 22 U/L 0-35 Not Available [facility] (Lab) [address] [place], [address], 07/12/2023 14:23:28 07/12/19 24 07/12/2023 COMPR EHENS CHAU METAB OLIC PANEL aspartate aminotransfe rase 23 U/L 15-37 Not Available [facility] (Lab) [address] [place], [address], 07/12/2023 14:23:28 07/12/19 24 07/12/2023 COMPR EHENS CHAU METAB OLIC PANEL bilirubin, total 0.80 mg/dL 0.20-1 .30 Not Available [facility] (Lab) [address] [place], [address], 07/12/2023 14:23:28 07/12/19 24 07/12/2023 COMPR EHENS CHAU METAB OLIC PANEL calcium 10.3 mg/dL 8.4-10 .2 high Not Available [facility] (Lab) [address] [place], [address], 07/12/2023 14:23:28 07/12/19 24 07/12/2023 COMPR EHENS CHAU METAB OLIC PANEL total protein 7.2 g/dL 6.3-8. 2 Not Available [facility] (Lab) [address] [place], [address], 07/12/2023 14:23:28 07/12/19 24 07/12/2023 COMPR EHENS CHAU METAB OLIC PANEL albumin 4.4 g/dL 3.0-4. 4 Not Available [facility] (Lab) [address] [place], [address], 07/12/2023 14:23:28 07/12/19 24 07/12/2023 COMPR EHENS CHAU METAB OLIC PANEL globulin 2.8 g/dL 2.6-4. 2 Not Available [facility] (Lab) [address] [place], [address], 07/12/2023 14:23:28 07/12/19 24 07/12/2023 COMPR EHENS CHAU METAB OLIC PANEL A/G ratio 1.6 ratio 1.0-2. 0 Not Available [facility] (Lab) [address] [place], [address], 07/12/2023 14:23:28 07/12/19 24 07/12/2023 T4 FREE free T4 1.31 NG/dL 0.78-2 .19 Not Available [facility] (Lab) [address] [place], [address], 07/12/2023 14:38:45 07/12/19 24 07/12/2023 VITAM IN D 25-HY DROXY [id number] 21.9 NG/mL 30-100 low Vitam in D Statu s: Defic ient: <20 ng/mL Insuf ficie nt: 20-29 ng/mL Suffi cient : 30-10 0 ng/mL Not Available [facility] (Lab) [address] [place], [address], 07/12/2023 14:39:06 07/12/19 24 07/12/2023 TSH thyroid-stim ulating hormone 11.600 uIU/m L 0.465- 4.680 high Not Available [facility] (Lab) [address] [place], [address], 07/12/2023 15:02:58 07/12/19 24 07/12/2023 MICRO ALBUM IN RANDO M URINE microalbumin , urine <6.0 mg/L 0.0-16 .6 Not Available [facility] (Lab) [address] [place], [address], 07/12/2023 15:43:34 07/12/19 24 07/12/2023 HEMOG LOBIN A1C HA1C 5.6 % 4.0-6. 0 Diabe shaun Scree efren Crite len: <5.7% Consi stent with absen ce of diabe shaun 5.7-6 .4% Consi stent with incre ased risk for diabe shaun (pred iabet es) >OR=6 .5% Consi stent with diabe shaun REFER ENCE: Diabe shaun Care 2015, 39(Enriquez ppl.1 ):s13 -s22 Not Available [facility] (Lab) [address] [place], [address], 07/12/2023 16:17:14 10/16/19 24 10/16/2023 CBC/C OMPLE TE BLD COUNT W/DIF F white blood cells 5.0 x10'3 /uL 4.2-10 .8 Not Available [facility] (Lab) [address] [place], [address], 10/16/2023 13:12:37 10/16/19 24 10/16/2023 CBC/C OMPLE TE BLD COUNT W/DIF F red blood cells 4.71 x10'6 /uL 3.80-5 .20 Not Available [facility] (Lab) [address] [facility], [address], 10/16/2023 13:12:37 10/16/19 24 10/16/2023 CBC/C OMPLE TE BLD COUNT W/DIF F hemoglobin 13.2 g/dL 12.0-1 5.6 Not Available [facility] (Lab) [address] [place], [address], 10/16/2023 13:12:37 10/16/19 24 10/16/2023 CBC/C OMPLE TE BLD COUNT W/DIF F hematocrit 41.1 % 35.7-4 5.7 Not Available [facility] (Lab) [address] [place], [address], 10/16/2023 13:12:37 10/16/19 24 10/16/2023 CBC/C OMPLE TE BLD COUNT W/DIF F mean red cell volume 87.3 fL 82.0-9 9.0 Not Available [facility] (Lab) [address] [place], [address], 10/16/2023 13:12:37 10/16/19 24 10/16/2023 CBC/C OMPLE TE BLD COUNT W/DIF F mean red cell hemoglobin 28.0 pg 27.0-3 3.0 Not Available [facility] (Lab) [address] [place], [address], 10/16/2023 13:12:37 10/16/19 24 10/16/2023 CBC/C OMPLE TE BLD COUNT W/DIF F mean RBC HGB concentratio n 32.1 g/dL 31.0-3 6.0 Not Available [facility] (Lab) [address] [place], [address], 10/16/2023 13:12:37 10/16/19 24 10/16/2023 CBC/C OMPLE TE BLD COUNT W/DIF F red cell distribution width 14.8 % 11.8-1 5.5 Not Available [facility] (Lab) [address] [place], [address], 10/16/2023 13:12:37 10/16/19 24 10/16/2023 CBC/C OMPLE TE BLD COUNT W/DIF F platelets 300 x10'3 /uL 150-40 0 Not Available [facility] (Lab) [address] [place], [address], 10/16/2023 13:12:37 10/16/19 24 10/16/2023 CBC/C OMPLE TE BLD COUNT W/DIF F mean platelet volume 10.7 fL 9.0-12 .4 Not Available [facility] (Lab) [address] [place], [address], 10/16/2023 13:12:37 10/16/19 24 10/16/2023 CBC/C OMPLE TE BLD COUNT W/DIF F neutrophils 57.8 % 39.0-7 2.0 Not Available [facility] (Lab) [address] [place], [address], 10/16/2023 13:12:37 10/16/19 24 10/16/2023 CBC/C OMPLE TE BLD COUNT W/DIF F lymphocytes 21.2 % 16.0-4 7.0 Not Available [facility] (Lab) [address] [place], [address], 10/16/2023 13:12:37 10/16/19 24 10/16/2023 CBC/C OMPLE TE BLD COUNT W/DIF F monocytes 9.8 % 5.0-12 .0 Not Available [facility] (Lab) [address] [place], [address], 10/16/2023 13:12:37 10/16/19 24 10/16/2023 CBC/C OMPLE TE BLD COUNT W/DIF F eosinophils 9.8 % 1.0-7. 0 high Not Available [facility] (Lab) [address] [place], [address], 10/16/2023 13:12:37 10/16/19 24 10/16/2023 CBC/C OMPLE TE BLD COUNT W/DIF F basophils 1.0 % 0.0-2. 0 Not Available [facility] (Lab) [address] [place], [address], 10/16/2023 13:12:37 10/16/19 24 10/16/2023 CBC/C OMPLE TE BLD COUNT W/DIF F immature granulocytes 0.4 % 0.00-0 .50 Not Available [facility] (Lab) [address] [place], [address], 10/16/2023 13:12:37 10/16/19 24 10/16/2023 CBC/C OMPLE TE BLD COUNT W/DIF F neutrophils, absolute count 2.89 x10'3 /uL 1.5-8. 0 Not Available [facility] (Lab) [address] [place], [address], 10/16/2023 13:12:37 10/16/19 24 10/16/2023 CBC/C OMPLE TE BLD COUNT W/DIF F lymphocytes, absolute count 1.06 x10'3 /uL 1.07-3 .43 low Not Available [facility] (Lab) [address] [place], [address], 10/16/2023 13:12:37 10/16/19 24 10/16/2023 CBC/C OMPLE TE BLD COUNT W/DIF F monocytes, absolute count 0.49 x10'3 /uL 0.29-0 .99 Not Available [facility] (Lab) [address] [place], [address], 10/16/2023 13:12:37 10/16/19 24 10/16/2023 CBC/C OMPLE TE BLD COUNT W/DIF F eosinophils, absolute count 0.49 x10'3 /uL 0.02-0 .53 Not Available [facility] (Lab) [address] [place], [address], 10/16/2023 13:12:37 10/16/19 24 10/16/2023 CBC/C OMPLE TE BLD COUNT W/DIF F basophils, absolute count 0.05 x10'3 /uL 0.01-0 .08 Not Available [facility] (Lab) [address] [place], [address], 10/16/2023 13:12:37 10/16/19 24 10/16/2023 CBC/C OMPLE TE BLD COUNT W/DIF F immature granulocytes ,absolute 0.02 x10'3 /uL 0.00-0 .05 Not Available [facility] (Lab) [address] [place], [address], 10/16/2023 13:12:37 10/16/19 24 10/16/2023 CBC/C OMPLE TE BLD COUNT W/DIF F nucleated red blood cells 0.0 % -0 Not Available [facility] (Lab) [address] [place], [address], 10/16/2023 13:12:37 10/16/19 24 10/16/2023 CBC/C OMPLE TE BLD COUNT W/DIF F NRBC# 0.00 x10'3 /uL Not Available [facility] (Lab) [address] [place], [address], 10/16/2023 13:12:37 10/16/19 24 10/16/2023 COMPR EHENS CHAU METAB OLIC PANEL sodium 137 mmol/ L 137-14 5 Not Available [facility] (Lab) [address] [place], [address], 10/16/2023 13:35:13 10/16/19 24 10/16/2023 COMPR EHENS CHAU METAB OLIC PANEL potassium 4.6 mmol/ L 3.5-5. 1 Not Available [facility] (Lab) [address] [place], [address], 10/16/2023 13:35:13 10/16/19 24 10/16/2023 COMPR EHENS CHAU METAB OLIC PANEL chloride 105 mmol/ L 98-107 Not Available [facility] (Lab) [address] [place], [address], 10/16/2023 13:35:13 10/16/19 24 10/16/2023 COMPR EHENS CHAU METAB OLIC PANEL carbon dioxide 27 mmol/ L 22-30 Not Available [facility] (Lab) [address] [place], [address], 10/16/2023 13:35:13 10/16/19 24 10/16/2023 COMPR EHENS CHAU METAB OLIC PANEL anion gap 9.6 mmol/ L 14-22 low Not Available [facility] (Lab) [address] [place], [address], 10/16/2023 13:35:13 10/16/19 24 10/16/2023 COMPR EHENS CHAU METAB OLIC PANEL glucose 135 mg/dL 70-99 high Not Available [facility] (Lab) [address] [place], [address], 10/16/2023 13:35:13 10/16/19 24 10/16/2023 COMPR EHENS CHAU METAB OLIC PANEL BUN 16 mg/dL 8-19 Not Available [facility] (Lab) [address] [place], [address], 10/16/2023 13:35:13 10/16/19 24 10/16/2023 COMPR EHENS CHAU METAB OLIC PANEL creatinine 0.65 mg/dL 0.66-1 .25 low Not Available [facility] (Lab) [address] [place], [address], 10/16/2023 13:35:13 10/16/19 24 10/16/2023 COMPR EHENS CHAU METAB OLIC PANEL GFR >60 Refer ence Range : [place] [facility] GFR Healt hy Adult : >60 mL/mi n/1.7 3 m2 Chron ic Kidne y Disea se: 15-60 mL/mi n/1.7 3 m2 Kidne y Failu re: <15/m L/min /1.73 m2 www.n iddk. nih.g ov The MDRD study equat ion has not been valid ated in child laura <18 years of age; pregn ant women ; the elder ly >85 years of age; or in some racia l or ethni c subgr oups, such as [facility] nics. Outsi de the valid ated liz eters , estim ated GFR is less accur ate, requi ring clini rodger judgm ent on a case- by-ca se basis . Clini rodger inter preta tion for other races and ages must be made by the clini damian. The MDRD study equat ion has not been valid ated for the evalu ation of serum creat inine relat ed to nutri linus l statu s or medic ation usage . For perso ns <18 years of age, a pedia tric GFR calcu lator is avail able on the [facility] websi te: https ://nela w.samuel costello.o rg/pr ofess ional s/kdo qi/gf r_cal culat or Not Available [facility] (Lab) [address] [place], [address], 10/16/2023 13:35:13 10/16/19 24 10/16/2023 COMPR EHENS CHAU METAB OLIC PANEL alkaline phosphatase 92 U/L 38-126 Not Available [facility] (Lab) [address] [place], [address], 10/16/2023 13:35:13 10/16/19 24 10/16/2023 COMPR EHENS CHAU METAB OLIC PANEL alanine aminotransfe rase 29 U/L 0-35 Not Available [facility] (Lab) [address] [place], [address], 10/16/2023 13:35:13 10/16/19 24 10/16/2023 COMPR EHENS CHAU METAB OLIC PANEL aspartate aminotransfe rase 25 U/L 15-37 Not Available [facility] (Lab) [address] [place], [address], 10/16/2023 13:35:13 10/16/19 24 10/16/2023 COMPR EHENS CHAU METAB OLIC PANEL bilirubin, total 0.70 mg/dL 0.20-1 .30 Not Available [facility] (Lab) [address] [place], [address], 10/16/2023 13:35:13 10/16/19 24 10/16/2023 COMPR EHENS CHAU METAB OLIC PANEL calcium 10.8 mg/dL 8.4-10 .2 high Not Available [facility] (Lab) [address] [place], [address], 10/16/2023 13:35:13 10/16/19 24 10/16/2023 COMPR EHENS CHAU METAB OLIC PANEL total protein 7.6 g/dL 6.3-8. 2 Not Available [facility] (Lab) [address] [place], [address], 10/16/2023 13:35:13 10/16/19 24 10/16/2023 COMPR EHENS CHAU METAB OLIC PANEL albumin 4.5 g/dL 3.0-4. 4 high Not Available [facility] (Lab) [address] [place], [address], 10/16/2023 13:35:13 10/16/19 24 10/16/2023 COMPR EHENS CHAU METAB OLIC PANEL globulin 3.1 g/dL 2.6-4. 2 Not Available [facility] (Lab) [address] [place], [address], 10/16/2023 13:35:13 10/16/19 24 10/16/2023 COMPR EHENS CHAU METAB OLIC PANEL A/G ratio 1.5 ratio 1.0-2. 0 Not Available [facility] (Lab) [address] [place], [address], 10/16/2023 13:35:13 10/16/19 24 10/16/2023 LIPID PANEL cholesterol 201 mg/dL 140-19 9 high NIH MATEUS NSUS RECOM MENDA TION FOR SAEED STERO L: ADULT CHILD LOW RISK: <200 <170 BORDE RLINE : <200- 239 ----- HIGH RISK: >240 >200 Not Available [facility] (Lab) [address] [place], [address], 10/16/2023 13:35:43 10/16/19 24 10/16/2023 LIPID PANEL triglyceride s 189 mg/dL 0-150 high NIH MATEUS NSUS REPOR T RECOM MENDA TION FOR TRIGL YCERI DAVID: ADULT CHILD LOW RISK: <150 ----- BODER LINE: 150-1 99 ----- HIGH RISK: >200 ----- Not Available [facility] (Lab) [address] [place], [address], 10/16/2023 13:35:43 10/16/19 24 10/16/2023 LIPID PANEL HDL cholesterol 43 mg/dL 40- Not Available [facility] (Lab) [address] [place], [address], 10/16/2023 13:35:43 10/16/19 24 10/16/2023 LIPID PANEL LDL cholesterol, calculated 120 mg/dL 0-130 NIH MATEUS NSUS REPOR T RECOM MENDA TIONS FOR LDL: ADULT CHILD LOW RISK <130 <110 (OPTI MAL LDL) <100 ----- BORDE RLINE : 130-1 59 ----- HIGH RISK: >160 >130 A TRIGL YCERI DE RESUL T >400 INVAL IDATE S THE CALCU LATIO N FOR LDL FRACT IONAT ION - THE LDL RESUL T WILL NOT BE REPOR MIHIR. Not Available [facility] (Lab) [address] [place], [address], 10/16/2023 13:35:43 10/16/19 24 10/16/2023 T4 FREE free T4 1.64 NG/dL 0.78-2 .19 Not Available [facility] (Lab) [address] [place], [address], 10/16/2023 13:39:42 10/16/19 24 10/16/2023 TSH thyroid-stim ulating hormone 3.940 uIU/m L 0.465- 4.680 Not Available [facility] (Lab) [address] [place], [address], 10/16/2023 13:53:31 10/16/19 24 10/16/2023 HEMOG LOBIN A1C HA1C 6.0 % 4.0-6. 0 Diabe shaun Scree efren Crite len: <5.7% Consi stent with absen ce of diabe shaun 5.7-6 .4% Consi stent with incre ased risk for diabe shaun (pred iabet es) >OR=6 .5% Consi stent with diabe shaun REFER ENCE: Diabe shaun Care 2016, 39( ppl.1 ):s13 -s22 Not Available [facility] (Lab) [address] [place], [address], 10/16/2023 16:10:26 10/16/19 24 10/16/2023 MICRO ALBUM IN RANDO M URINE microalbumin , urine 10.9 mg/L 0.0-16 .6 Not Available [facility] (Lab) [address] [place], [address], 10/16/2023 18:01:47 10/16/19 24 10/16/2023 VITAM IN D 25-HY DROXY [id number] 21.1 NG/mL 30-100 low Vitam in D Statu s: Defic ient: <20 ng/mL Insuf ficie nt: 20-29 ng/mL Suffi cient : 30-10 0 ng/mL Not Available [facility] (Lab) [address] [place], [address], 10/16/2023 22:36:15 12/17/19 23 12/16/2022 NM, parat hyroi d scan No observ ation record ed. [email or web address] [address] [facility], [place], [address], 09/08/2023 15:47:35 03/21/19 24 03/21/2023 US, echoc ardio gram No observ ation record ed. [address] [facility] [address], [place], [address], 10/16/2023 18:16:08 07/07/19 24 07/07/2023 CT, angio gram, head + neck, w/wo contr ast No observ ation record ed. [email or web address] [address], [place], [address], 10/18/2023 11:53:31 08/21/19 24 MAMMO , scree efren, digit al, bilat eral [facility] [address] [place] [address] [phone] Patien t Name: HOA MART Access ion #: [id number] Sex: F : 1945 1 Dictat ed By: Trixie Hernandez Attend ing Physic tamiko: MORENA ABDUL Orderi ng Physic tamiko: MORENA ABDUL Exam Date: 2023 10:50 AM Exam Name: MG DIGITA L JOSE BILAT SCREEN Admitt ing Diagno sis(es ): CLINIC AL INDICA TION: Screen ing COMPAR ABRAHAM STUDY: 2022; 2021 TECHNI QUE: Using a full field digita l 2D mammog aguilar unit CC and MLO views of both breast s are perfor med. FINDIN GS: BREAST COMPOS ITION: There are scatte red areas of fibrog landul ar densit y in the bilate ral breast s. No suspic ious masses , evert ectura l distor tion, asymme tries or suspic ious calcif icatio ns in both breast s. IMPRES JULIANE: No eviden ce of malign hugo. FOLLOW UP RECOMM ENDATI ON: Recomm end annual mammog clement. BIRADS : 2 - Benign Electr onical ly Signed by: Trixie Hernandez at 2023 12:04: 28 PM Page 1 [email or web address] [facility] (Imaging) [address] [place], [address], 09/08/2023 15:47:35 10/30/19 24 10/30/2023 CT, angio gram, chest + abdom en + pelvi s, w/ contr ast No observ ation record ed. [facility] [address] [place], [address], 02/05/2024 14:19:23 Result Notes None recorded. Problems Name Problem SNOMED Code Status Onset Date Resolution Date Notes Provider Name and Address Organization Details Recorded Time Non-alcoh olic fatty liver 562091611 Active 2021 Not Available [facility] 3 08:15:39 Hypolipid emia 020397389 Completed 201702/20/2017 Not Available [facility] 3 06:02:36 Vitamin D deficienc y 63772025 Active 2021 Not Available [facility] 3 08:15:39 Iron deficienc y 31581808 Active 2017 Not Available [facility] 3 08:15:39 Hypertens chau disorder 25642299 Active 2017 Not Available [facility] 3 08:15:39 Vertigo 211340596 Active 2021 Not Available [facility] 3 08:15:39 Hypothyro idism 74236189 Active 2017 Not Available [facility] 3 08:15:39 Aneurysm of thoracic aorta 416864637 Active 2021 Not Available [facility] 3 08:15:39 Hip pain 21545072 Active Not Available [facility] 3 08:15:39 Hyperlipi demia 04781312 Active 2017 Not Available [facility] 3 08:15:39 Dyspnea on exertion 35469839 Active 2022 Not Available [facility] 3 08:15:39 Hydrouret er 74501535 Active 2021 Not Available [facility] 3 08:15:39 Liver enzymes level above reference range 626178562 Active 2021 Not Available [facility] 3 08:15:39 Chronic kidney disease 082703519 Active 2021 Not Available [facility] 3 08:15:39 Sleep apnea 89195559 Active 2022 Not Available [facility] 3 08:15:39 Obstructi ve sleep apnea syndrome 10321417 Active 2022 Not Available [facility] 3 08:15:39 Hyperglyc emia 93798011 Active 2021 Not Available [facility] 3 08:15:39 COVID-19 268201121 Active 2021 Not Available [facility] 3 08:15:39 Pulmonary emphysema 19202402 Active 2021 Not Available [facility] 3 08:15:39 Secondary pulmonary hypertens ion 25857061 Active 2022 Not Available [facility] 3 08:15:39 Hypoxia 424164323 Active 2022 Not Available [facility] 3 08:15:39 Alpha-1-a ntitrypsi n deficienc y 20595142 Active 2022 Not Available [facility] 3 08:15:39 Anemia 411489285 Active 2022 Not Available [facility] 3 08:15:39 Essential hypertens ion 27663871 Active 2022 Not Available [facility] 3 08:15:39 Chronic obstructi ve pulmonary disease 29901986 Active 2022 Not Available [facility] 3 08:15:39 Skin lesion 25166690 Active 2022 Not Available [facility] 3 08:15:39 Increased liver function 92415125 Active 2022 Not Available [facility] 3 08:15:39 Type 2 diabetes mellitus without complicat ion 377942873 Active 2022 Not Available [facility] 3 08:15:39 Asthma 108797331 Active 2022 Not Available [facility] 3 08:15:39 Hypercalc emia 12187329 Active 2022 Not Available [facility] 3 08:15:39 Cobalamin deficienc y 577636240 Active 2022 Lashon lauren, [facility] 3 15:52:24 Bleeding from nose 424236422 Active 2023 Sanjuanita talamantes MD [address] [place] [address], [address] [address], [place], [address] , [place] [facility] [employer] [facility] 4 10:53:56 Pain in right hip joint 12094815630 9102 Active 2023 Sanjuanita talamantes MD [address] [facility], [address], [place], [address] , [facility] [employer] [facility] 4 11:25:29 Moderate recurrent major depressio n 74125344 Active 2023 Sanjuanita talamantes MD [address] [facility], [address], [place], [address] , [facility] [employer] [facility] 4 11:26:04 Notes:[facility] home sleep study 03/15/22 AHI = 4 [facility] diagnostic sleep study 06/29/22 AHI = 9, REM AHI = 35, PLMI = 22 Medical History: Cerebral ischemia Vertigo COVID infection 01/2022 Delayed sleep phase syndrome Obesity with mild OSAHS, AHI = 9, 06/29/22 4.2 cm ascending thoracic aortic aneurysm Hypothyroidism Mixed hyperlipidemia Hypertension Pulmonary hypertension Methacholine (+) asthma T2DM with microalbuminuria NAFLD Hepatic cysts Diverticulosis CKD PLMD Iron deficiency Vit D deficiency Lumbar DDD R>L hip OA Procedure History: Cholecystectomy TERRI Problem Notes None recorded. Procedures Surgical History Date Name Laterality Status Provider Name and Address Organization Details Recorded Time 07/19/19 24 Medicare Wellness CPT Code, subsequent completed Deven Stacy LPN [place] [employer] 07/17/2023 18:32:38 07/19/19 24 Advanced Care Planning completed Deven Stacy LPN [place] [employer] [facility] 07/19/2023 11:12:06 04/28/19 23 Medicare Wellness CPT Code, subsequent completed Adele Valencia RN [facility] [employer] [facility] 04/27/2022 11:20:50 04/28/19 23 Advanced Care Planning completed Adele Valencia RN [facility] [employer] [facility] 04/27/2022 11:23:21 01/01/20 20 excision of skin carcinoma completed Not Available [facility] 04/06/2022 05:56:38 10/22/19 17 Ther radiology tx plng smpl completed Not Available [facility] 04/06/2022 05:56:38 09/18/19 13 Stent placemt retro carotid completed Not Available [facility] 04/06/2022 05:56:38 02/17/19 11 Cholecystectomy completed Not Available [facility] 04/06/2022 05:56:38 Nipple/areola reconstruction completed Not Available [facility] 04/06/2022 05:56:38 excision of skin carcinoma completed Not Available [facility] 04/06/2022 05:56:38 Skin Graft completed Not Available [facility] 04/06/2022 05:56:38 Colonoscopy completed Not Available [facility] 04/06/2022 05:56:38 Hysterectomy completed Not Available [facility] 04/06/2022 05:56:38 Appendectomy completed Not Available [facility] 04/06/2022 05:56:38 EGD completed Not Available [facility] 04/06/2022 05:56:38 Imaging Results Imaging Date Name Status LastModified by Organization Details LastModified Time 12/16/2022 NM, parathyroid scan completed [address], [address], 09/08/2023 15:47:35 03/21/2023 US, echocardiogram completed [address] [facility] [address], [place], [address], 10/16/2023 18:16:08 07/07/2023 CT, angiogram, head + neck, w/wo contrast completed [address], [address], 10/18/2023 11:53:31 08/21/2023 MAMMO, screening, digital, bilateral completed [address] (Imaging) [address] [place], [address], 09/08/2023 15:47:35 10/30/2023 CT, angiogram, chest + abdomen + pelvis, w/ contrast active [address] [place], [address], 02/05/2024 14:19:23 Procedure Notes None recorded. Medical Equipment None Reported. Allergies Allergen ID Allergen Name Allergen Category Reaction Reaction Severity Criticality Documentation Date Start Date Code Code System Note Provider Name and Address Organization Details Recorded Time 28094 Non-stero idal anti-infl ammatory agent (product) medicatio n nausea severe Not available 04/06/2022 73309 005 SNOMED Not Available [facility] 3 06:09:23 05257 Demerol medicatio n hallucina tions Not available Not available 04/06/2022 46022 1 RxNorm Not Available [facility] 3 06:09:23 20738 codeine medicatio n itching Not available Not available 04/06/2022 2670 RxNorm Not Available [facility] 3 06:09:23 Medications Name Sig Start Date Stop Date Status Note LastModified by Organization Details LastModified Time cyclobenz aprine 10 mg tablet Take 1 tablet every day by oral route as needed for 30 days. active Not Available Not Available No t Available atorvasta tin 40 mg tablet TAKE 1 TABLET BY MOUTH ONCE DAILY 04/06 completed causes cramps in legs Not Available Not Available Not Available metformin 500 mg tablet TAKE 1 TABLET BY MOUTH TWICE DAILY active Not Available Not Available No t Available levothyro xine 137 mcg tablet TAKE 1 TABLET BY MOUTH ONCE DAILY 07/18 completed Not Available Not Available Not Available carvedilo l 6.25 mg tablet Take 1 tablet by mouth twice daily 2023 active Not Available Not Available Not Avai lable doxycycli ne hyclate 100 mg capsule TAKE 1 CAPSULE BY MOUTH ONCE DAILY 03/22 completed Not Available Not Available Not Available cephalexi n 250 mg capsule Take 1 capsule 3 times a day by oral route for 7 days. active Not Available Not Available No t Available hydrocodo ne 5 mg-acetam inophen 325 mg tablet TAKE 1 TABLET BY MOUTH EVERY 4 HOURS NEEDED FOR PAIN 05/19 completed Not Available Not Available Not Available Ferrex 150 mg iron capsule Take 1 capsule by mouth twice daily 2024 active Not Available Not Available Not Avai lable aspirin 81 mg tablet,de layed release Take 1 tablet every day by oral route. 05/19 completed Not Available Not Available Not Available tramadol 50 mg tablet Take 1 tablet every day by oral route as needed for 30 days. active Not Available Not Available No t Available simvastat in 40 mg tablet Take 1 tablet by mouth once daily 03/17 completed Not Available Not Available Not Available ondansetr on 8 mg disintegr ating tablet DISSOLVE 1 TABLET BY MOUTH EVERY 8 HOURS NEEDED 05/19 completed Not Available Not Available Not Available meloxicam 7.5 mg tablet Take 1 tablet twice a day by oral route as needed for 30 days. active Not Available Not Available No t Available levothyro xine 100 mcg tablet TAKE 1 TABLET BY MOUTH ONCE DAILY FOR 90 DAYS 04/21 completed Not Available Not Available Not Available oxycodone -acetamin ophen 5 mg-325 mg tablet TAKE 1 TABLET BY MOUTH EVERY 4 TO 6 HOURS NEEDED FOR PAIN . DO NOT EXCEED 6 PER 24 HOURS 10/21 completed Not Available Not Available Not Available amoxicill in 875 mg tablet TAKE 1 TABLET BY MOUTH EVERY 12 HOURS FOR 10 DAYS 01/05 completed Not Available Not Available Not Available famotidin e 20 mg tablet TAKE 1 TABLET BY MOUTH TWICE DAILY active Not Available Not Available No t Available meclizine 25 mg tablet TAKE 1 TABLET BY MOUTH EVERY 8 HOURS NEEDED 03/22 completed Not Available Not Available Not Available cephalexi n 500 mg capsule TAKE 1 CAPSULE BY MOUTH EVERY 12 HOURS FOR 10 DAYS 09/22 completed Not Available Not Available Not Available levothyro xine 125 mcg tablet Take 1 tablet every day by oral route for 30 days. 10/16 completed Not Available Not Available Not Available clotrimaz ole-betam ethasone 1 %-0.05 % topical cream APPLY CREAM TO AFFECTED AREA ONCE DAILY AFTER WASHING. active Not Available Not Available No t Available Unithroid 150 mcg tablet Take 1 tablet every day by oral route for 90 days. 2023 active Not Available Not Available Not Avai lable hydrochlo rothiazid e 12.5 mg capsule Take 1 capsule by mouth once daily 2023 active Not Available Not Available Not Avai lable sertralin e 25 mg tablet Take 1 tablet by mouth once daily 2023 active Not Available Not Available Not Avai lable mupirocin 2 % topical ointment USE DIRECTED IN CLINIC 10/22 completed Not Available Not Available Not Available ergocalci ferol (vitamin D2) 1,250 mcg (50,000 unit) capsule Take 1 capsule by oral route WEEKLY for 60 days. 08/17 completed duplicat e Not Available Not Available Not Available albuterol sulfate HFA 90 mcg/actua tion aerosol inhaler INHALE 2 PUFFS BY MOUTH EVERY 4 HOURS NEEDED 03/22 completed Not Available Not Available Not Available ondansetr on 4 mg disintegr ating tablet DISSOLVE 1 TABLET IN MOUTH EVERY 6 HOURS 10/22 completed Not Available Not Available Not Available fluticaso ne propionat e 50 mcg/actua tion nasal spray,ariadna pension USE 1 SPRAY(S) IN EACH NOSTRIL ONCE DAILY FOR 30 DAYS 10/21 completed Not Available Not Available Not Available loratadin e 10 mg tablet TAKE 1 TABLET BY MOUTH ONCE DAILY NEEDED FOR 30 DAYS 10/21 completed Not Available Not Available Not Available amoxicill in 875 mg-potass ium clavulana te 125 mg tablet TAKE 1 TABLET BY MOUTH TWICE DAILY 04/19 completed Not Available Not Available Not Available oxycodone 5 mg tablet TAKE 1 TABLET BY MOUTH EVERY 8 HOURS NEEDED FOR PAIN 10/22 completed Not Available Not Available Not Available Benadryl Allergy 25 mg tablet Take 1 tablet every day by oral route as needed. 10/21 completed Not Available Not Available Not Available ezetimibe 10 mg tablet TAKE 1 TABLET BY MOUTH ONCE DAILY active Not Available Not Available No t Available aspirin qd 12/20 completed Not Available Not Available Not Available iron bid 06/05 completed Not Available Not Available Not Available cholecalc iferol (vitamin D3) 10/21 completed 50,000 unit by mouth daily Not Available Not Available Not Available Ferrex 150 ad 12/25 completed Not Available Not Available Not Available cholecalc iferol (vitamin D3) 1,250 mcg (50,000 unit) capsule TAKE 1 CAPSULE BY MOUTH ONCE A WEEK 10/22 completed Not Available Not Available Not Available diclofena c 1 % topical gel APPLY TWO GRAMS TO THE AFFECTED AREA(S) THREE TIMES DAILY 01/05 completed Not Available Not Available Not Available GaviLyte- G 236 gram-22.7 4 gram-6.74 gram-5.86 gram oral solution 12/10 completed Not Available Not Available Not Available pitavasta tin calcium 2 mg tablet TAKE 1 TABLET BY MOUTH ONCE DAILY 10/22 completed Approved pitavast atin. Valid: 05/02/23 until futher notice. UT# [id number] 335. Not Available Not Available Not Available Contour Next Test Strips USE 1 STRIP TO CHECK GLUCOSE ONCE DAILY active Not Available Not Available No t Available cyanocoba samara (vit B-12) 1,000 mcg/mL injection kit Inject 1 mL every month by intramus cular route. 10/21 completed Not Available Not Available Not Available Fluzone High-Dose 2018- (PF) 180 mcg/0.5 mL intramusc ular syringe PHARMACI ST ADMINIST ERED IMMUNIZA TION ADMINIST ERED AT TIME OF DISPENSI NG 12/10 completed Not Available Not Available Not Available Fluzone High-Dose Quad (PF) 240 mcg/0.7 mL IM syringe PHARMACI ST ADMINIST ERED IMMUNIZA TION ADMINIST ERED AT TIME OF DISPENSI NG 03/09 completed Not Available Not Available Not Available Paxlovid 300 mg (150 mg x 2)-100 mg tablets in a dose pack Take 1 dose pk by oral route as directed . 04/27 completed Not Available Not Available Not Available Breyna 160 mcg-4.5 mcg/actua tion HFA aerosol inhaler Inhale by inhalati on route for 10 days. 03/22 completed Not Available Not Available Not Available Vitals Date Recorded Body height Body mass index (BMI) Body weight Body temperature Heart rate Oxygen saturation Oxygen saturation in Arterial blood by Pulse oximetry Systolic blood pressure Diastolic blood pressure Provider Name and Address Organization Details Last Updated DateTime 3 157.48 cm 33.3 kg/m2 03797.8 1 g 97.2 [degF] 64 /min 94 % 94 % 112 mm[Hg] 70 mm[Hg] Pavithra DUNLAP [facility] 3 09:48:58 Date Recorded Body height Body mass index (BMI) Body weight Body temperature Heart rate Systolic blood pressure Diastolic blood pressure Provider Name and Address Organization Details Last Updated DateTime 3 157.48 cm 33.5 kg/m2 39885.4 g 97.7 [degF] 84 /min 120 mm[Hg] 72 mm[Hg] Rain Gill MALIKA [employer] [facility] [employer] [facility] 3 10:18:07 Date Recorded Body height Body mass index (BMI) Body weight Body temperature Heart rate Systolic blood pressure Diastolic blood pressure Provider Name and Address Organization Details Last Updated DateTime 4 157.48 cm 33.7 kg/m2 20772 g 97.2 [degF] 72 /min 124 mm[Hg] 80 mm[Hg] Rain Gill [facility] [employer] [facility] [employer] [facility] 4 09:47:31 Date Recorded Body height Body mass index (BMI) Body weight Body temperature Systolic blood pressure Diastolic blood pressure Provider Name and Address Organization Details Last Updated DateTime 4 157.48 cm 34.4 kg/m2 67444.3 7 g 97.2 [degF] 126 mm[Hg] 78 mm[Hg] Rain Gill Mahi [employer] [facility] [employer] [facility] 4 10:42:51 Date Recorded Pain severity - 0-10 verbal numeric rating [Score] - Reported Provider Name and Address Organization Details Last Updated DateTime 07/19/2023 0 [facility]en [facility] [employer] [facility] 07/19/2023 11:08:25 Date Recorded Body height Body mass index (BMI) Body weight Body temperature Heart rate Oxygen saturation Oxygen saturation in Arterial blood by Pulse oximetry Pain severity - 0-10 verbal numeric rating [Score] - Reported Systolic blood pressure Diastolic blood pressure Provider Name and Address Organization Details Last Updated DateTime 4 157.48 cm 34.4 kg/m2 42346.3 7 g 97.8 [degF] 82 /min 91 % 91 % 0 142 mm[Hg] 80 mm[Hg] Deven Stacy LPN [employer] [facility] [employer] [facility] 4 10:37:44 Social History Question Answer Notes LastModified by Organization Details LastModified Time Tobacco Smoking Status Former Smoker Not Available [employer] 04/06/2022 05:54:10 Do You Have An Advance Directive? No Information Provided Information not available 04/27/2022 What Is Your Level Of Alcohol Consumption? None MIGRATION.696 [id number] Information not available 04/06/2022 Are You Blind Or Do You Have Difficulty Seeing? No MIGRATION.092 [id number] Information not available 04/06/2022 Is Blood Transfusion Acceptable In An Emergency? Yes Information not available 07/19/2023 What Is Your Level Of Caffeine Consumption? Moderate MIGRATION.680 [id number] Information not available 04/06/2022 In The 14 Days Before Symptom Onset, Have You Had Close Contact With A Laboratory-conf irmed COVID-19 While That Case Was Ill? No MIGRATION.122 [id number] Information not available 04/06/2022 In The 14 Days Before Symptom Onset, Have You Had Close Contact With A Person Who Is Under Investigation For COVID-19 While That Person Was Ill? No MIGRATION.165 [id number] Information not available 04/06/2022 Are You Currently Employed? No Retired [email or web address] Information not available 07/19/2023 Are You Deaf Or Do You Have Serious Difficulty Hearing? No MIGRATION.343 [id number] Information not available 04/06/2022 What Type Of Diet Are You Following? DIABETIC Information not available 04/27/2022 What Is The Highest Grade Or Level Of School You Have Completed Or The Highest Degree You Have Received? [id number] MIGRATION.937 [id number] Information not available 04/06/2022 Have There Been Any Changes To Your Family Or Social Situation? No MIGRATION.663 [id number] Information not available 04/06/2022 What Is The Fluoride Status Of Your Home? Fluoridated MIGRATION.242 [id number] Information not available 04/06/2022 When Did You Quit Smoking? 1-5yearssincelastc igarette 03/09/21 MIGRATION.899 [id number] Information not available 04/06/2022 Are There Any Guns Present In Your Home? No MIGRATION.323 8300727 Information not available 04/06/2022 Do You Use Insect Repellent Routinely? No MIGRATION.636 [id number] Information not available 04/06/2022 Where Do You Live? SingleLevelHouse MIGRATION.818 [id number] Information not available 04/06/2022 Presence Of Domestic Violence No Information not available 04/27/2022 Guns Present In The Home? No Information not available 04/27/2022 Are You Able To Care For Yourself? Yes Information not available 04/27/2022 Are You Blind Or Do Yo Have Difficulty Seeing? No Information not available 04/27/2022 Are You Deaf Or Do You Have Serious Difficulty Hearing? No Information not available 04/27/2022 General Stress Level? Moderate Information not available 04/27/2022 Live Alone Of With Others? Alone Information not available 04/27/2022 Do You Have A Medical Power Of Parimutuel Ticket Cashier? No MIGRATION.996 [id number] Information not available 04/06/2022 What Was The Date Of Your Most Recent Tobacco Screening? 07/19/2023 [email or web address] Information not available 07/19/2023 Do You Have Any Pets? No MIGRATION.073 [id number] Information not available 04/06/2022 What Is Your Relationship Status? MIGRATION.350 [id number] Information not available 04/06/2022 Do You Use Your Seat Belt Or Car Seat Routinely? Yes MIGRATION.881 [id number] Information not available 04/06/2022 Do You Have Smoke And Carbon Monoxide Detectors In Your Home? Yes MIGRATION.134 [id number] Information not available 04/06/2022 At What Age Did You Start Smoking Tobacco? 26 MIGRATION.560 3883589 Information not available 04/06/2022 Are You Passively Exposed To Smoke? No MIGRATION.103 [id number] Information not available 04/06/2022 Are There Any Smokers In Your House? No MIGRATION.581 [id number] Information not available 04/06/2022 Do You Feel Stressed (tense, Restless, Nervous, Or Anxious, Or Unable To Sleep At Night)? [id number] MIGRATION.715 3443973 Information not available 04/06/2022 Do You Use Any Illicit Or Recreational Drugs? No MIGRATION.988 6738547 Information not available 04/06/2022 Do You Use Sunscreen Routinely? No MIGRATION.599 [id number] Information not available 04/06/2022 Has Tobacco Cessation Counseling Been Provided? No MIGRATION.672 7042156 Information not available 04/06/2022 How Many Years Have You Smoked Tobacco? 50 MIGRATION.582 [id number] Information not available 04/06/2022 Have You Recently Traveled Abroad? No MIGRATION.141 6728125 Information not available 04/06/2022 Do You Have Any Dietary Restrictions? No MIGRATION.275 [id number] Information not available 04/06/2022 Do You Or Have You Ever Used Any Other Forms Of Tobacco Or Nicotine? No MIGRATION.813 6293725 Information not available 04/06/2022 Sex: Female Functional Status Question Answer Note LastModified by Organizat ion Details LastModified Time Do you have difficulty walking or climbing stairs? Yes MIGRATION.[id number] 026 Information not available 04/06/2022 Do you have transportation difficulties? No MIGRATION.[id number] 026 Information not available 04/06/2022 Are you able to walk? YESWOREST MIGRATION.[id number] 026 Information not available 04/06/2022 Do you have difficulty doing errands alone? No MIGRATION.[id number] 026 Information not available 04/06/2022 Are you able to care for yourself? Yes MIGRATION.[id number] 026 Information not available 04/06/2022 Do you have difficulty dressing or bathing? No MIGRATION.6845256 026 Information not available 04/06/2022 What is your exercise level? None MIGRATION.[id number] 026 Information not available 04/06/2022 Mental Status Question Answer Note LastModified by Organizat ion Details LastModified Time Do you have difficulty concentrating, remembering or making decisions? No MIGRATION.[id number] 6 Information not available 04/06/2022 Family History Relationship Description Onset Age of this Age Resolved Age Notes LastModified by Organization Details LastModified Time Brother Aneurysm MIGRATION.010 [id number] Not available 04/06/2022 05:56:39 Brother Carcinoma of prostate MIGRATION.561 [id number] Not available 04/06/2022 05:56:39 Father Carcinoma of prostate MIGRATION.705 [id number] Not available 04/06/2022 05:56:39 Sister Hodgkin's disease (clinical) MIGRATION.468 [id number] Not available 04/06/2022 05:56:39 Mother Well adult MIGRATION.223 [id number] Not available 04/06/2022 05:56:40 Medical History Condition Response NERVE DISEASE N BLINDNESS N RHEUMATIC FEVER N KIDNEY STONES N BLADDER PROBLEMS N MRSA N OTHER # 1 N POLIO N LUNG DISEASE/DISORDER N HISTORY OF DRUG ABUSE N RADIATION / CHEMOTHERAPY N COPD Y Other # 2 N BLOOD DISEASES N EAR OR HEARING PROBLEMS N MUMPS N SHINGLES N BOWEL PROBLEMS N DEPRESSION (INCLUDING POST ) N STROKE/TIA N ULCERS N BENIGN PROSTATIC HYPERPLASIA N MEASLES N HYPOTENSION N MYOCARDIAL INFARCTION N OBESITY N GERD/NAUSEA N ANEURYSM N URINARY/BLADDER/KIDNEY PROBLEMS N CORONARY ARTERY DISEASE (CAD) N ADDICTION CONCERNS N ENDOMETRIOSIS N Impotence N USE OF BLOOD THINNERS N SKIN PROBLEMS N GASTROINTESTINAL DISORDER N PERIPHERAL VASCULAR DISEASE N MUSCLE,JOINT OR BONE PROBLEMS N GASTROINTESTINAL BLEEDING N BLOOD CLOTS N ASTHMA N CATARACTS N ERECTILE DYSFUNCTION N VARICOSITIES N GI PROBLEMS N Low Testosterone N INFERTILITY N AIDS/HIV N CHEMOTHERAPY / RADIATION N LIVER DISEASE N MALE HYPOGONADISM N HYPERTENSION Y Deficiency Y TOURETTE'S N ANXIETY DISORDER N BLOOD TRANSFUSION N ANEMIA/BLOOD DISORDER Y CHRONIC EAR INFECTIONS N BRONCHITIS N TUBERCULOSIS N GLAUCOMA N FOOT PROBLEM N DIVERTICULITIS N CHICKENPOX N SLEEP APNEA N INFECTIOUS DISEASE N HEART ARRHYTHMIA N PROSTATE N INSOMNIA N HIGH CHOLESTEROL / HYPERLIPIDEMIA Y HYPERTHYROIDISM N EYE PROBLEMS N EDEMA N CHRONIC PAIN SYNDROME N HYPOTHYROIDISM Y CAROTID BLOCKAGE N CONSTIPATION N BACK / NECK PROBLEMS N ATHEROSCLEROSIS N BREAST PROBLEMS N DIALYSIS N ECZEMA N OSTEOPOROSIS N ARTHRITIS N APPENDICITIS N DIABETES, TYPE N BAD TEETH N ENT N HEARTBURN / REFLUX N AUTISM SPECTRUM DISORDER (ASD) N HEPATITIS / LIVER DISEASE N GOUT N SLEEP DISORDER N ALZHEIMER'S DISEASE N Brain Problems N HERPES N DEMENTIA N HEADACHES/MIGRAINES N SEIZURES/EPILEPSY N VASCULAR DISEASE N PACEMAKER N Blood Disorder N DIZZINESS Y HEART DISEASE/HEART PROBLEMS N KIDNEY DISEASE Y MULTIPLE SCLEROSIS N CARDIAC ARRHYTHMIA N CANCER: SPECIFY Y ATRIAL FIBRILLATION N Gall Stones N PULMONARY EMBOLISM N AUTOIMMUNE DISEASE N Gynecological HistoryNo gynecological history recorded. Obstetrics History GPAL:G 0 P 0 0 0 0 Immunizations Vaccine Type Date Status Note Provider Nam e and Address Organization Details Recorded Time Influenza, high-dose, quadrivalent, PF 3 completed MALIKA Barrera [facility] 12/01/2022 15:53:55 Influenza, high-dose, quadrivalent, PF 0 completed MALIKA Wilkins, [facility] 09/21/2023 15:05:54 COVID-19, mRNA, LNP-S, PF, 30 mcg/0.3 mL dose 1 completed MALIKA Wilkins, [facility] 09/21/2023 15:05:54 COVID-19, mRNA, LNP-S, PF, 30 mcg/0.3 mL dose 1 completed Rain Gill, RMA null, [facility] 09/21/2023 15:05:54 COVID-19, mRNA, LNP-S, PF, 30 mcg/0.3 mL dose, talia-sucrose 2 completed Rain Gill RMA null, [facility] 09/21/2023 15:05:54 pneumococcal polysaccharide PPV23 6 completed Rain Gill RMA null, [facility] 09/21/2023 15:05:54 Tdap 3 completed Rain Gill RMA null, [facility] 09/21/2023 15:05:54 Influenza, high-dose, trivalent, PF 6 completed Rain Gill RMA null, [facility] 09/21/2023 15:05:54 Influenza, high-dose, trivalent, PF 9 completed Rain Gill RMA null, [facility] 09/21/2023 15:05:54 Influenza, high-dose, trivalent, PF 8 completed Rain Gill RMA null, [facility] 09/21/2023 15:05:54 Influenza, high-dose, trivalent, PF 7 completed Rain Gill RMA null, [facility] 09/21/2023 15:05:54 Influenza, split virus, trivalent, preservative 3 completed Rain Gill RMA null, [facility] 09/21/2023 15:05:54 Influenza, split virus, trivalent, preservative 5 completed Rain Gill RMA null, [facility] 09/21/2023 15:05:54 Influenza, split virus, quadrivalent, PF 1 completed Rain Gill RMA null, [facility] 09/21/2023 15:05:54 RSV, recombinant, protein subunit RSVpreF, adjuvant reconstituted, 0.5 mL, PF 4 completed Rain Gill RMA null, [facility] 09/21/2023 15:06:18 COVID-19, mRNA, LNP-S, PF, 100 mcg/0.5mL dose or 50 mcg/0.25mL dose 1 completed Rain Gill RMA null, [facility] 09/21/2023 15:05:54 COVID-19, mRNA, LNP-S, PF, 100 mcg/0.5mL dose or 50 mcg/0.25mL dose 1 completed Rain Gill RMA null, [facility] 09/21/2023 15:05:54 Influenza, high-dose, trivalent, PF 9 completed Rain Gill RMA null, [facility] 09/21/2023 15:05:54 influenza, unspecified formulation 8 completed Not Available [facility] 08/22/2022 08:15:40 Influenza, high-dose, quadrivalent, PF 1 completed Rain Gill RMA null, [facility] 09/21/2023 15:05:54 Influenza, high-dose, trivalent, PF 0 completed Rain Gill RMA null, [facility] 09/21/2023 15:05:54 influenza, unspecified formulation 7 completed Not Available [facility] 08/22/2022 08:15:40 pneumococcal polysaccharide PPV23 7 completed Not Available [facility] 08/22/2022 08:15:40 Pneumococcal conjugate PCV 13 6 completed Not Available [facility] 08/22/2022 08:15:40 Influenza, high-dose, quadrivalent, PF 2 completed Not Available [facility] 08/22/2022 08:15:40 Past Encounters Encounter ID Performer Location Encounter Start Date Encounter Closed Date Diagnosis/Indication Diagnosis SNOMED-CT Code Diagnosis ICD10 Code Diagnosis Note [id number] [facility] [facility] [place] [address] 10/21/2020 00:00:00 10/21/2020 12:03:09 [id number] [facility] [place] [address] [place] [address] [place] [address] 04/19/2021 00:00:00 04/19/2021 10:34:18 [id number] [facility] [place] [facility] [address] [place] [address] [place] [address] 05/19/2021 00:00:00 05/19/2021 12:09:16 [id number] [facility] [place] [address] [place] [address] [place] [address] 09/22/2021 00:00:00 09/22/2021 12:42:46 [id number] [facility] [place] [address] [place] [address] [place] [address] 01/05/2022 00:00:00 01/05/2022 12:59:39 [id number] [facility] [place] [address] [place] [address] 03/08/2022 00:00:00 03/08/2022 19:20:14 [id number] Joleen Gambino, [facility] [place] [address] [place] [address] 04/20/2022 12:17:43 04/21/2022 08:51:46 Pulmonary emphysema [id number] J43.[address] chest completed 01/2022FIN DINGS:No pneumothor ax, pulmonary edema, pleural effusions, noncalcifi ed pulmonaryn odules, or consolidat chau infiltrate s. There is severe paraseptal andcentril obular emphysema, greatest in the right upper lobe. There is scarringin the lung bases. No suspicious mediastina l or axillary adenopathy . Theheart is upper limits of normal in size. There are coronary arterycalc ifications . There is ascending thoracic aortic ectasia measuring up to4.2 cm diameter. The descending thoracic aorta is normal in caliber. Thecentral pulmonary arteries are ectatic. No fractures are identified aboutthe bony thorax. The liver is diffusely fatty density.IM PRESSION:1 . Severe emphysema without evidence of acute intrathora cic process.2. Coronary artery disease.3. Ascending thoracic aortic ectasia up to 4.2 cm diameter. The descending thoracic aorta is normal in caliber.4. Pulmonary arterial hypertensi on.5. Hepatic steatosis. PFT completed 04/11/22: Normal valuesAlbu terol PRN Dyspnea on exertion 6084 5006 R06.09 PFT normalChec k methacholi ne challenge testingRAS T with several positivesI GE, IGGs, Quantifero n GOLD all normal Hypoxia [id number] R09.02 Per home sleep studySix minute walk normal Sleep apnea [id number] G47 .30 Home study with AHI 4Severe desaturati ons, 417 minutes with saturation s below 89%Check in lab study Alpha-1-an titrypsin deficiency 25797799 E88.01 Alpha1 MZ with level of 83Extensiv e discussion about genetic abnormalit y:People with the MZ genotype do not have severe AATD but are genetic carriersTh e MZ genotype is not associated with an increased risk for lung disease in non-smoker s.Higher risk is seen in MZ individual s who smoke.A slightly increased risk for liver disease has been seen in MZ population s.Because Alpha-1 is a genetic condition, relatives are at increased risk to also have abnormal alpha-1 genes.Repr oductive partners of people with abnormal alpha-1 genes should be offered testing to assess risk to children.R echeck levels in 3 months Secondary pulmonary hypertension [id number] I27.21 PFT normalHypo ivan during home sleep studyOrder for in lab study as above [id number] Sanjuanita talamantes MD [facility] [address] [place] [address] 04/27/2022 10:45:50 04/27/2022 11:52:52 Adult health examination [id number] Z00.00 Screening for disorder [id number] Z13.9 Screening - NAD [id number] 3 Z13.9 C-scope: Dr Judith waterman 10/02/17: Next 5-10 years09/10: Dr Judith waterman EGD and c-scope Mammogram: 09/19/17: NegMammogr am: 09/18/2019 : NegMammogr am: 04/19/2021 : Neg PAP: Not doing this at this time, no complaints DEXA: 10/24/17: Declines any prolia can do the vit d and calciumDEX A: 09/20/2019 : Osteopenia , on Ca and Vit dOrdered UTD on the flu shotUTD on the PCV #13 and #23Can do Tdap and shingles vaccineUTD on COVID 19 vaccine as per her history RTC in 3 monthsDo labsER if worseShe did verbalize her understand ing of the above Screening mammography 24 803749 Z12.31 Screening for osteoporosis 123339582 Z13.820 Vitamin D deficiency 347 62123 E55.9 Get on vit d weekly Hypothyroidism 09230364 E03.9 On euthyrox 137mcgs dailyDoes well Get labs Anemia 949885971 D64.[address] Alvarenga Essential hypertension 10351429 I10 On coreg 6.25mg dailyOn HCTZ 12.5mg daily Does wellGet labsShe did see Dr Martell [facility] Hyperlipidemia 93618184 E78.5 On ASAOn simvastati n 40mg daily Does well Get labs Chronic ob structive pulmonary disease 17097442 J44.9 Sees Joleen Gambino NPNow to get a in lab sleep study as per her history Hyperglycemia 63795636 R 73.9 On metformin 500mg po bidNeeds to diet and exerciseNe eds to do labs and see eye and foot Increased liver function 59178734 R94.5 US liver 12/27/21CT A/P 01/13/2022 CMP: LFTs WNL 04/18/2022 Should see GI hepatology , states that she did not do this the last time as she did not have the ride Hydroureter 97192376 N13 .4 S/p CT A/P 01/13/2022 Pulmonary emphysema 8743 3001 J43.9 Joleen Maki TRANSIT MECH[employer]IC 04/20/2022 , next apt 07/20/2022 Aneurysm o f thoracic aorta 503496316 I71.[address] Martell [facility], as per note 04/27/2022 , TAA is 4.2cm, f/u in 6 months [id number] Joleen Maki, [facility]- [facility] Pulmonolo gy [place] [address] [place] [address] 07/20/2022 10:52:59 07/20/2022 11:49:23 Obstructive sleep apnea syndrome 19973578 G47.33 In lab study with AHI 9, worse in REMShe spent 99% of her sleep time below 88%Discuss ed treatment options.AP AP agreed upon, ordered todayOSA is well correctedE ncouraged 100% compliance with all sleepFollo w with PCM for labsAdvise d good sleep habits and patterns:- Set a goal for at least 7 to 8 hours of sleep time per day.-Use the bed mainly for sleep and to go to bed only when tired. If unable to fall asleep after 30 minutes, patient should get out of bed but should not engage in any activity that requires sustained mental alertness. -Maintain a regular bedtime and wake-up time even on weekends-A void excessive naps during the daytime. If a nap is necessary, limit it to no more than 30 minutes.-M inimize environmen chandler noise, bright lights, and extremes in bedroom temperatur e.-Avoid alcohol, caffeinate d beverages, and nicotine products for at least 6 hours prior to bedtime.-A void strenuous exercise and large meals for at least 4 hours prior to bedtime.RT C for compliance visit, PRN for concerns Pulmonary emphysema [address] chest completed 01/2022FIN DINGS:No pneumothor ax, pulmonary edema, pleural effusions, noncalcifi ed pulmonaryn odules, or consolidat chau infiltrate s. There is severe paraseptal andcentril obular emphysema, greatest in the right upper lobe. There is scarringin the lung bases. No suspicious mediastina l or axillary adenopathy . Theheart is upper limits of normal in size. There are coronary arterycalc ifications . There is ascending thoracic aortic ectasia measuring up to4.2 cm diameter. The descending thoracic aorta is normal in caliber. Thecentral pulmonary arteries are ectatic. No fractures are identified aboutthe bony thorax. The liver is diffusely fatty density.IM PRESSION:1 . Severe emphysema without evidence of acute intrathora cic process.2. Coronary artery disease.3. Ascending thoracic aortic ectasia up to 4.2 cm diameter. The descending thoracic aorta is normal in caliber.4. Pulmonary arterial hypertensi on.5. Hepatic steatosis. PFT completed 04/11/22: Normal valuesAlbu terol PRN - discussed indication s for use, instructed on technique Hypoxia 328273531 R09.02 Per sleep studySix minute walk normalPAP as above Alpha-1-an titrypsin deficiency 22355504 E88.01 Alpha1 MZ with level of 83Extensiv e discussion about genetic abnormalit y:People with the MZ genotype do not have severe AATD but are genetic carriersTh e MZ genotype is not associated with an increased risk for lung disease in non-smoker s.Higher risk is seen in MZ individual s who smoke.A slightly increased risk for liver disease has been seen in MZ population s.Because Alpha-1 is a genetic condition, relatives are at increased risk to also have abnormal alpha-1 genes.Repr oductive partners of people with abnormal alpha-1 genes should be offered testing to assess risk to children.R ecent level 84 - recheck in 6 months Secondary pulmonary hypertension 37374437 I27.21 PFT normalHypo ivan during in lab study and +OSATreatm ent as above Asthma 326322584 J45.90 9 PFT normalMeth acholine challenge positiveRA ST with several positivesI GE, IGGs, Quantifero n GOLD all normalDecl yenny maintenanc e medication [id number] Sanjuanita talamantes MD [facility] Internal [facility] [place] [address] [place] [address] 08/17/2022 10:08:33 08/17/2022 10:55:17 Screening - NAD 369943529 Z13.9 C-scope: Dr Judith waterman 10/02/17: Next 5-10 years09/10: Dr Judith waterman EGD and c-scope Mammogram: 09/19/17: NegMammogr am: 09/18/2019 : NegMammogr am: 04/19/2021 : NegMammogr am: 05/10/2022 : Neg PAP: Not doing this at this time, no complaints DEXA: 10/24/17: Declines any prolia can do the vit d and calciumDEX A: 09/20/2019 : Osteopenia , on Ca and Vit dDEXA: 05/10/2022 : Osteopenia , did not want any prescripti on needs to do Ca and VIT D UTD on the flu shotUTD on the PCV #13 and #23Can do Tdap and shingles vaccineUTD on COVID 19 vaccine as per her history RTC in 3 monthsDo labsER if worseShe did verbalize her understand ing of the above Vitamin D deficiency 347 54322 E55.9 Get on vit d weekly Hypothyroidism 87133686 E03.9 On euthyrox 137mcgs dailyDoes well Get labs Anemia 655552506 D64.[address] Alvarenga Essential hypertension 90168522 I10 On coreg 6.25mg dailyOn HCTZ 12.5mg daily Does wellGet labsShe did see Dr Martell [facility] Hyperlipidemia 83500365 E78.5 On ASAOn simvastati n 40mg daily Does wellGet labs Chronic ob structive pulmonary disease 77237429 J44.9 Sees Joleen Gambino NPNow to get a in lab sleep study as per her history Hyperglycemia 65241946 R 73.9 On metformin 500mg po bidNeeds to diet and exerciseNe eds to do labs and see eye and foot MD Increased liver function 76048395 R94.5 US liver 12/27/21CT A/P 01/13/2022 CMP: LFTs WNL 04/18/2022 Should see GI hepatology , states that she did not do this the last time as she did not have the ride Hydroureter 27689153 N13 .4 S/p CT A/P 01/13/2022 Pulmonary emphysema 8743 3001 J43.9 Joleen Gambino TRANSIT MECH[employer]IC Aneurysm o f thoracic aorta 152954154 I71.[address] Martell [facility], as per note 04/27/2022 , TAA is 4.2cm, f/u in 6 months Hypercalcemia 41783435 E 83.52 Will repeat the labs, declines any referrals, very mild corrected [id number] Joleen Gambino, GRAY MIXING OPERATOR-BC [facility] Pulmonolo [facility] [place] [address] [place] [address] 09/14/2022 10:06:30 09/14/2022 10:54:21 Obstructive sleep apnea syndrome 19693160 G47.33 In lab study with AHI 9, worse in REMShe spent 99% of her sleep time below 88%APAP set up 08/30/22 at 5-15 cm H2OShe has used this >4 hours every night since she was set upMedian pressure 9.0AHI is 1.2OSA is well correctedE ncouraged 100% compliance with all sleepFollo w with PCM for labsAdvise d good sleep habits and patterns:- Set a goal for at least 7 to 8 hours of sleep time per day.-Use the bed mainly for sleep and to go to bed only when tired. If unable to fall asleep after 30 minutes, patient should get out of bed but should not engage in any activity that requires sustained mental alertness. -Maintain a regular bedtime and wake-up time even on weekends-A void excessive naps during the daytime. If a nap is necessary, limit it to no more than 30 minutes.-M inimize environmen chandler noise, bright lights, and extremes in bedroom temperatur e.-Avoid alcohol, caffeinate d beverages, and nicotine products for at least 6 hours prior to bedtime.-A void strenuous exercise and large meals for at least 4 hours prior to bedtime.RT C for compliance visit with at least 30 days use, PRN for concerns Asthma 858304506 J45.90 9 PFT normalMeth acholine challenge positiveRA ST with several positivesI GE, IGGs, Quantifero n GOLD all normalDecl yenny maintenanc e medication Alpha-1-an titrypsin deficiency 73593771 E88.01 Alpha1 MZ with level of 83Extensiv e discussion about genetic abnormalit y:People with the MZ genotype do not have severe AATD but are genetic carriersTh e MZ genotype is not associated with an increased risk for lung disease in non-smoker s.Higher risk is seen in MZ individual s who smoke.A slightly increased risk for liver disease has been seen in MZ population s.Because Alpha-1 is a genetic condition, relatives are at increased risk to also have abnormal alpha-1 genes.Repr oductive partners of people with abnormal alpha-1 genes should be offered testing to assess risk to children.R ecent level 84 - recheck in 6 months [id number] Joleen Gambino, GRAY MIXING OPERATOR-BC [facility] Pulmonolo [facility] [place] [address] [place] [address] 11/08/2022 09:23:22 11/08/2022 11:09:57 Obstructive sleep apnea syndrome 77433868 G47.33 In lab study with AHI 9, worse in REMShe spent 99% of her sleep time below 88%APAP set up 08/30/22 at 5-15 cm H2OShe has used this >4 hours every night since she was set up, 100% use greater than 4 hoursMedia n pressure 10.2AHI is 1.5OSA is well correctedE ncouraged 100% compliance with all sleepFollo w with PCM for labsAdvise d good sleep habits and patterns:- Set a goal for at least 7 to 8 hours of sleep time per day.-Use the bed mainly for sleep and to go to bed only when tired. If unable to fall asleep after 30 minutes, patient should get out of bed but should not engage in any activity that requires sustained mental alertness. -Maintain a regular bedtime and wake-up time even on weekends-A void excessive naps during the daytime. If a nap is necessary, limit it to no more than 30 minutes.-M inimize environmen chandler noise, bright lights, and extremes in bedroom temperatur e.-Avoid alcohol, caffeinate d beverages, and nicotine products for at least 6 hours prior to bedtime.-A void strenuous exercise and large meals for at least 4 hours prior to bedtime. Asthma 445044139 J45.90 9 PFT 04/2022 normalMeth acholine challenge 05/[address] with several positivesI GE, IGGs, Quantifero n GOLD all normalDecl yenny maintenanc e medication Will send for symbicort for rescue use as per new guidelines Alpha-1-an titrypsin deficiency 70641941 E88.01 Alpha1 MZ with level of 83Extensiv e discussion about genetic abnormalit y:People with the MZ genotype do not have severe AATD but are genetic carriersTh e MZ genotype is not associated with an increased risk for lung disease in non-smoker s.Higher risk is seen in MZ individual s who smoke.A slightly increased risk for liver disease has been seen in MZ population s. [id number] Sanjuanita talamantes MD [facility] Internal Med [place] [address] [place] [address] 11/23/2022 10:07:16 11/23/2022 11:43:21 Screening - NAD [id number] Z13.9 C-scope: Dr Judith waterman 10/02/17: Next 5-10 years09/10: Dr Judith waterman EGD and c-scope Mammogram: 09/19/17: NegMammogr am: 09/18/2019 : NegMammogr am: 04/19/2021 : NegMammogr am: 05/10/2022 : Neg PAP: Not doing this at this time, no complaints DEXA: 10/24/17: Declines any prolia can do the vit d and calciumDEX A: 09/20/2019 : Osteopenia , on Ca and Vit dDEXA: 05/10/2022 : Osteopenia , did not want any prescripti on needs to do Ca and VIT D UTD on the flu shotUTD on the PCV #13 and #23Can do Tdap and shingles vaccineUTD on COVID 19 vaccine as per her historyCan do RSV and new COVID 19 vaccine RTC in 3 monthsDo labsER if worseShe did verbalize her understand ing of the above Vitamin D deficiency 347 27900 E55.9 Get on vit d weekly Hypothyroidism 07298345 E03.9 On euthyrox 137mcgs dailyDoes well Get labs Anemia 579259619 D64.9 Does well Did see Dr Alvarenga Essential hypertension 98105834 I10 On coreg 6.25mg dailyOn HCTZ 12.5mg daily Does wellGet labsShe did see Dr Martell [facility] Hyperlipidemia 26978721 E78.5 On ASAOn simvastati n 40mg daily Does wellGet labs Chronic ob structive pulmonary disease 43272864 J44.9 Sees Joleen Maki NPNow to get a in lab sleep study as per her history Hyperglycemia 33902004 R 73.9 On metformin 500mg po bid Needs to diet and exerciseNe eds to do labs and see eye and foot Increased liver function 99207982 R94.5 US liver 12/27/21CT A/P 01/13/2022 CMP: LFTs WNL 04/18/2022 Should see GI hepatology , states that she did not do this the last time as she did not have the ride Hydroureter 08767384 N13 .4 S/p CT A/P 01/13/2022 Pulmonary emphysema 8743 3001 J43.9 Joleen Gambino TRANSIT MECHANIC, 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 Aneurysm o f thoracic aorta 286589731 I71.[address] Martell [facility], as per note 04/27/2022 , TAA is 4.2cm, f/u in 6 months Hypercalcemia 89435837 E 83.[address] Duran, may need to see ENT also [id number] Sanjuanita talamantes MD [facility] [place] Internal Med [place] [address] [place] [address] [facility] [place] [address] 03/22/2023 09:38:27 03/22/2023 10:02:07 Screening - NAD 588514867 Z13.9 C-scope: Dr Judith waterman 10/02/17: Next 5-10 years09/10: Dr Judith waterman EGD and c-scope Mammogram: 09/19/17: NegMammogr am: 09/18/2019 : NegMammogr am: 04/19/2021 : NegMammogr am: 05/10/2022 : Neg PAP: Not doing this at this time, no complaints DEXA: 10/24/17: Declines any prolia can do the vit d and calciumDEX A: 09/20/2019 : Osteopenia , on Ca and Vit dDEXA: 05/10/2022 : Osteopenia , did not want any prescripti on needs to do Ca and VIT D UTD on the flu shotUTD on the PCV #13 and #23Can do Tdap and shingles vaccineUTD on COVID 19 vaccine as per her historyCan do RSV and new COVID 19 vaccine RTC in 3 monthsDo labsER if worseShe did verbalize her understand ing of the above Vitamin D deficiency 347 13466 E55.9 Repeat the vit d level Hypothyroidism 79582701 E03.9 On euthyrox 137mcgs dailyDoes well Get labs Anemia 569440738 D64.9 Does well Did see Dr Alvarenga Essential hypertension 29616835 I10 On coreg 6.25mg dailyOn HCTZ 12.5mg daily Does wellGet labsShe did see Dr Martell [facility] Hyperlipidemia 24020748 E78.5 On ASANot on simvastati n 40mg dailyOn atorvastat in 40mg daily Does wellGet labs Chronic ob structive pulmonary disease 61925292 J44.9 Seen Joleen Gambino NPNow to get a in lab sleep study as per her history Hyperglycemia 43225368 R 73.9 On metformin 500mg po bid Needs to diet and exerciseNe eds to do labs and see eye and foot Increased liver function 62501698 R94.5 US liver 12/27/21CT A/P 01/13/2022 CMP: LFTs WNL 04/18/2022 Should see GI hepatology , states that she did not do this the last time as she did not have the ride Hydroureter 39415904 N13 .4 S/p CT A/P 01/13/2022 Pulmonary emphysema 8743 3001 J43.9 Joleen Gambino TRANSIT MECHANIC, 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 Aneurysm o f thoracic aorta 568953209 I71.[address] Martell [facility], as per note 04/27/2022 , TAA is 4.2cm, f/u in 6 months Hypercalcemia 75975895 E 83.52 NM parathyroi d scan 12/16/2022 Dr Duran, may need to see ENT also Screening mammography 24 636276 Z12.31 [id number] Sanjuanita talamantes MD [facility] Internal [facility] [place] [address] [facility] [address] [place] [address] 07/19/2023 10:24:43 07/19/2023 11:24:13 Adult health examination 055980856 Z00.00 Screening for disorder 237186631 Z13.9 Screening - NAD 90090820 3 Z13.9 C-scope: Dr Judith waterman 10/02/17: Next 5-10 years09/10: Dr Judith waterman EGD and c-scope Mammogram: 09/19/17: NegMammogr am: 09/18/2019 : NegMammogr am: 04/19/2021 : NegMammogr am: 05/10/2022 : Neg PAP: Not doing this at this time, no complaints DEXA: 10/24/17: Declines any prolia can do the vit d and calciumDEX A: 09/20/2019 : Osteopenia , on Ca and Vit dDEXA: 05/10/2022 : Osteopenia , did not want any prescripti on needs to do Ca and VIT D UTD on the flu shotUTD on the PCV #13 and #23Can do Tdap and shingles vaccineUTD on COVID 19 vaccine as per her historyCan do RSV and new COVID 19 vaccine RTC in 3 monthsDo labsER if worseShe did verbalize her understand ing of the above Vitamin D deficiency 347 17090 E55.9 Repeat the vit d level Hypothyroidism 18076516 E03.9 On levothyrox ine 137mcgs daily, will increase to 150mcgs daily as TSH is elevatedGe t US thyroidDoe s well Get labs Anemia 012853944 D64.9 Does wellGet labsDid see Dr Alvarenga Essential hypertension 04044179 I10 On coreg 6.25mg dailyOn HCTZ 12.5mg daily Does wellGet labsShe did see Dr Martell [facility] Hyperlipidemia 31013745 E78.5 On ASANot on simvastati n 40mg dailyNot on atorvastat in 40mg dailyOn pitavastat in 2mg daily Does wellGet labs Chronic ob structive pulmonary disease 03149412 J44.9 Seen Joleen Gambino NPNow to get a in lab sleep study as per her history Hyperglycemia 86226315 R 73.9 On metformin 500mg po bid Needs to diet and exerciseNe eds to do labs and see eye and foot Increased liver function 83476557 R94.5 US liver 12/27/21CT A/P 01/13/2022 CMP: LFTs WNL 04/18/2022 Should see GI hepatology , states that she did not do this the last time as she did not have the ride Hydroureter 56992558 N13 .4 S/p CT A/P 01/13/2022 Pulmonary emphysema 8743 3001 J43.9 Joleen Gambino TRANSIT MECHANIC, 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 [place] [address] 10/23/2023 10:26:22 10/23/2023 11:30:01 Vitamin D deficiency 69734131 E55.9 Repeat the vit d level Screening - NAD 50027209 3 Z13.9 C-scope: Dr Judith waterman 10/02/17: Next 5-10 years09/10: Dr Judith waterman EGD and c-scope Mammogram: 09/19/17: NegMammogr am: 09/18/2019 : NegMammogr am: 04/19/2021 : NegMammogr am: 05/10/2022 : NegMammogr am: 08/21/2023 : Neg PAP: Not doing this at this time, no complaints DEXA: 10/24/17: Declines any prolia can do the vit d and calciumDEX A: 09/20/2019 : Osteopenia , on Ca and Vit dDEXA: 05/10/2022 : Osteopenia , did not want any prescripti on needs to do Ca and VIT D UTD on the flu shotUTD on the PCV #13 and #23Can do Tdap and shingles vaccineUTD on COVID 19 vaccine as per her historyCan do RSV and new COVID 19 vaccine RTC in 3 monthsDo labsER if worseShe did verbalize her understand ing of the above Hypothyroidism 01121175 E03.9 On levothyrox ine 150mcgs daily, renewed 10/23/2023 with UnithroidG et US thyroidDoe s well Get labs Anemia 149067403 D64.9 Does wellGet labsDid see Dr Alvarenga Essential hypertension 25147035 I10 On coreg 6.25mg dailyOn HCTZ 12.5mg daily Does wellGet labsShe did see Dr Martell [facility] Hyperlipidemia 80194550 E78.5 On ASANot on simvastati n 40mg dailyNot on atorvastat in 40mg dailyNot on pitavastat in 2mg dailyOn zetia 10mg daily Does wellGet labs Chronic ob structive pulmonary disease 93084736 J44.9 Seen Joleen Gambino NPNow to get a in lab sleep study as per her history Hyperglycemia 21333400 R 73.9 On metformin 500mg po bid Needs to diet and exerciseNe eds to do labs and see eye and foot MD Increased liver function 97283864 R94.5 US liver 12/27/21CT A/P 01/13/2022 CMP: LFTs WNL 04/18/2022 Should see GI hepatology , states that she did not do this the last time as she did not have the rideReferr ed again 10/23/2023 Hydroureter 95437207 N13 .4 S/p CT A/P 01/13/2022 Pulmonary emphysema 8743 3001 J43.9 Joleen Gambino TRANSIT MECHANIC, 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 Aneurysm o f thoracic aorta 184604353 I71.[address] Martell [facility], as per note 04/27/2022 , TAA is 4.2cm, f/u in 6 monthsDr Jasbir CASIANO 03/21/2023 , f/u in 6 months, is to get CT C/A/P on 10/30/2023 Hypercalcemia 07705263 E 83.52 NM parathyroi d scan 12/16/2022 Dr Duran, may need to see ENT also, low vit d, will need to discuss with nephrology about taking vit d, she also would like a referral to endocrine, as her nephrologi st told her she need to see an endocrine MD, referred to Dr Stark Bleeding from nose [address] Bayron Morin ENT 03/16/2023 CTA neck 07/07/2023 Pain in ri ght hip joint 2715253454 94777 M25.551 States that she would like to get a referral to Dr Mehta ortho as her preferred ortho as she her lab phlebotomi st went to him Moderate r ecurrent major depression 44614895 F33.1 Feels overwhelme d with her medical issues, also has to take care of her sister who has had surgery, not suicidal or homicidalW illing to start on sertraline , all side effects explained to her Health Concerns Section Related Observation LastModified by Organization Detai ls LastModified Time None Recorded Concern Status LastModified by Organization Details LastModified Time None Recorded Advance Directives Directive N: Information provided Payers Encounter Date Sequence Insurance Name Policy Number Policy Alberto Covered Member ID Alberto Member ID Guarantor Name 11/08/2022 1 [place] Jory A Hessel [id number] Jory A [place] 11/08/2022 2 [place] [facility] PUBLIC AID Jory A Hessel [id number] Jory A [place] 11/23/2022 1 [place] Jory A Hessel [id number] Jory A [place] 11/23/2022 2 [place] [facility] [place] Jory A Hessel [id number] Jory A [place] 03/22/2023 1 [place] Jory A Hessel [id number] Jory A [place] 03/22/2023 2 [place] [facility] A[place] Jory A Hessel [id number] Jory A [place] 07/19/2023 1 [place] Jory A Hessel [id number] Jory aMrt 07/19/2023 2 [place] [facility] [place] [facility] Jory Mart [id number] Jory Mart 10/23/2023 1 [place] Jory Mart [id number] Jory Mart 10/23/2023 2 [place] [facility] AID Jory Mart [id number] Jory Mart Notes Date Note Type Note Provider Name and Address Organization Details Recorded Time 11/08/2022 text/html Ms Caitlin cheek ts today to follow up on GABE, asthmaReports she is sleeping better at night but she does not like her machineWakes feeling like she has more energyShe does not wake at night R/T respiratory symptoms.Continues to report xerostomia despite humidifier in bedroom and increased humidity.Denies morning headaches, increase in sinus congestion, aerophagiaShe has not had any difficulty breathing or respiratory exacerbationsMild dyspnea with significant exertionDenies significant cough and wheezing. Joleen Gambino, GRAY MIXING OPERATOR-BC [address] [facility] [address], [place], [address], [facility] [employer] 11/08/2022 13:57:00 11/23/2022 text/html 02/20/17Here to establish carePMD: [facility]'Past Hx:HTNHLDAnemiaSkin cancer L Jerald social family and surgical historyHere as she would adolph to discuss this today and perhaps get some labs 03/06/17:Here for her follow up aptShe did do the labs on 02/25/17 OV 06/05/17:Here for her routine aptShe did do the labs and is here to review theseShe feels that she is doing well at this time OV 10/16/17:Here for her routine aptShe did do the labs on 10/13/17 and is doing well at this time OV 01/15/18:Here for her routine aptDid get labs on 01/11/18OV 04/16/18:Here for her routine aptShe feels well OV 04/23/18:ACV:Here for URI SxC/o ear ache and also nasal congestionNoted to have some dizzy spells when she turns her head side to sideAlso has an 'itchy eye' on the L eyeNo redness in the eye or eye painNo N/V or diarrheaNo fevers or chillsNo chest pain or SOB or wheezingNo rash noted OV 07/30/18:Here for her routine aptShe did have labsShe also does not want any new referrals to do any thing with the 'thyroid' and feels that she is doing 'very well', she states that she also wants to wait on the EGD OV 12/10/18:Here for her routine aptShe feels that she is doing well except for R hip painShe did do the labs on 12/04/18C/o R hip pain, she did have a fall a long time ago, pain is constant and is 8/10Hurts to stand on her feet, 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 OV 03/04/2019:Here for ACV:C/o nasal congestionHas some dizzy spells when she turns her head side to sideand front to backNo N/V or diarrheaNo fevers or chillsNo chest pain or SOB or wheezingNo rash notedDoes have lots of sinus tendernessHas a productive cough but no blood and it is whit OV 04/22/2019:Here for her routine aptShe did do the labs and also was in the ER 04/09/2019 and states that she was seen by Dr Vazquez a sap data analyst and was told to do a 'cath'She feels well today, no chest pain or SOB, palpitations, no N/V or diarrhea, no fevers or coughShe is also here for her MWV OV 09/16/2019: Here for her routine aptShe did do the labsShe is c/o R neck pain since about 3 days or so, states she could have 'slept wrong'No N/T or weakness in the UE or LEShe did see Dr Alvarenga and Dr Simmons continues to smoke, advised to quit! OV 03/09/2020:Here for her routine aptShe feels wellShe did do the labsShe is here for her MWV also OV 10/21/2020:Here for her routine aptShe c/o fatigue and aches and pains 'all over'She did do the labs on 10/14/2020 OV 04/19/2021:Here for her routine aptShe is doing wellShe did her labs and has an apt with mammogram today OV 05/19/2021:Here for ACVC/o R hip pain, L knee pain, she states that the L knee pain occurred when she 'favored her R hip' and while climbing up the stairsAlso c/o nose bleed, none today, and has noted that her vertigo is now worse, requests she be seen by ENTOV 09/22/2021:Here for her routine aptShe is doing wellC/o lesion on the L lower posterior leg, it is red but non tenderNo new labsOV 01/05/2022:Here for her f/u apt, she is doing well today,she has done labs OV 04/27/2022:Here for her f/u apt, she is doing well today, she did do the labs OV 08/17/2022: Here for her f/u apt, she feels well today, she did do the labs on 08/10/2022 OV 11/23/2022: Here for her routine apt, she is doing well today, she did do the labs on 11/15/2022 Sanjuanita Bach MD [address] [place] [address], [address], [place], [address], [place] - [facility] 11/23/2022 11:33:51 03/22/2023 text/html 02/20/17Here to establish carePMD: [facility], [facility] a 'long ago'Past Hx:HTNHLDAnemiaSkin cancer L LEReviewayned social family and surgical historyHere as she would adolph to discuss this today and perhaps get some labs 03/06/17:Here for her follow up aptShe did do the labs on 02/25/17 OV 06/05/17:Here for her routine aptShe did do the labs and is here to review theseShe feels that she is doing well at this time OV 10/16/17:Here for her routine aptShe did do the labs on 10/13/17 and is doing well at this time OV 01/15/18:Here for her routine aptDid get labs on 01/11/18OV 04/16/18:Here for her routine aptShe feels well OV 04/23/18:ACV:Here for URI SxC/o ear ache and also nasal congestionNoted to have some dizzy spells when she turns her head side to sideAlso has an 'itchy eye' on the L eyeNo redness in the eye or eye painNo N/V or diarrheaNo fevers or chillsNo chest pain or SOB or wheezingNo rash noted OV 07/30/18:Here for her routine aptShe did have labsShe also does not want any new referrals to do any thing with the 'thyroid' and feels that she is doing 'very well', she states that she also wants to wait on the EGD OV 12/10/18:Here for her routine aptShe feels that she is doing well except for R hip painShe did do the labs on 12/04/18C/o R hip pain, she did have a fall a long time ago, pain is constant and is 8/10Hurts to stand on her feet, 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 OV 03/04/2019:Here for ACV:C/o nasal congestionHas some dizzy spells when she turns her head side to sideand front to backNo N/V or diarrheaNo fevers or chillsNo chest pain or SOB or wheezingNo rash notedDoes have lots of sinus tendernessHas a productive cough but no blood and it is whit OV 04/22/2019:Here for her routine aptShe did do the labs and also was in the ER 04/09/2019 and states that she was seen by Dr Vazquez a sap data analyst and was told to do a 'cath'She feels well today, no chest pain or SOB, palpitations, no N/V or diarrhea, no fevers or coughShe is also here for her MWV OV 09/16/2019: Here for her routine aptShe did do the labsShe is c/o R neck pain since about 3 days or so, states she could have 'slept wrong'No N/T or weakness in the UE or LEShe did see Dr Alvarenga and Dr Simmons continues to smoke, advised to quit! OV 03/09/2020:Here for her routine aptShe feels Costa did do the labsShe is here for her MWV also OV 10/21/2020:Here for her routine aptShe c/o fatigue and aches and pains 'all over'She did do the labs on 10/14/2020 OV 04/19/2021:Here for her routine aptShe is doing wellShe did her labs and has an apt with mammogram today OV 05/19/2021:Here for ACVC/o R hip pain, L knee pain, she states that the L knee pain occurred when she 'favored her R hip' and while climbing up the stairsAlso c/o nose bleed, none today, and has noted that her vertigo is now worse, requests she be seen by ENTOV 09/22/2021:Here for her routine aptShe is doing wellC/o lesion on the L lower posterior leg, it is red but non tenderNo new labsOV 01/05/2022:Here for her f/u apt, she is doing well today,she has done labs OV 04/27/2022:Here for her f/u apt, she is doing well today, she did do the labs OV 08/17/2022: Here for her f/u apt, she feels well today, she did do the labs on 08/10/2022 OV 11/23/2022: Here for her routine apt, she is doing well today, she did do the labs on 11/15/2022 OV 03/22/2023: Here for her f/u apt, she is doing well today Sanjuanita Bach MD [address] [facility], [address], [place], [address], [place] - [employer] [facility] 03/22/2023 17:44:27 07/19/2023 text/html 02/20/17Here to establish carePMD: In [facility], last apt was a 'long ago'Past Hx:HTNHLDAnemiaSkin cancer L Jerald social family and surgical historyHere as she would adolph to discuss this today and perhaps get some labs 03/06/17:Here for her follow up aptPaula did do the labs on 02/25/17 OV 06/05/17:Here for her routine aptShe did do the labs and is here to review theseShshahnaz feels that she is doing well at this time OV 10/16/17:Here for her routine aptShe did do the labs on 10/13/17 and is doing well at this time OV 01/15/18:Here for her routine aptDid get labs on 01/11/18OV 04/16/18:Here for her routine aptShe feels well OV 04/23/18:ACV:Here for URI SxC/o ear ache and also nasal congestionNoted to have some dizzy spells when she turns her head side to sideAlso has an 'itchy eye' on the L eyeNo redness in the eye or eye painNo N/V or diarrheaNo fevers or chillsNo chest pain or SOB or wheezingNo rash noted OV 07/30/18:Here for her routine aptShe did have labsShshahnaz also does not want any new referrals to do any thing with the 'thyroid' and feels that she is doing 'very well', she states that she also wants to wait on the EGD OV 12/10/18:Here for her routine aptShe feels that she is doing well except for R hip painShe did do the labs on 12/04/18C/o R hip pain, she did have a fall a long time ago, pain is constant and is 8/10Hurts to stand on her feet, 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 OV 03/04/2019:Here for ACV:C/o nasal congestionHas some dizzy spells when she turns her head side to sideand front to backNo N/V or diarrheaNo fevers or chillsNo chest pain or SOB or wheezingNo rash notedDoes have lots of sinus tendernessHas a productive cough but no blood and it is whit OV 04/22/2019:Here for her routine aptShe did do the labs and also was in the ER 04/09/2019 and states that she was seen by Dr Vazquez a sap data analyst and was told to do a 'cath'She feels well today, no chest pain or SOB, palpitations, no N/V or diarrhea, no fevers or coughShe is also here for her MWV OV 09/16/2019: Here for her routine aptShe did do the labsShe is c/o R neck pain since about 3 days or so, states she could have 'slept wrong'No N/T or weakness in the UE or LEShe did see Dr Alvarenga and Dr Simmons continues to smoke, advised to quit! OV 03/09/2020:Here for her routine aptShe feels Costa did do the labsShe is here for her MWV also OV 10/21/2020:Here for her routine aptShe c/o fatigue and aches and pains 'all over'She did do the labs on 10/14/2020 OV 04/19/2021:Here for her routine aptShe is doing wellShe did her labs and has an apt with mammogram today OV 05/19/2021:Here for ACVC/o R hip pain, L knee pain, she states that the L knee pain occurred when she 'favored her R hip' and while climbing up the stairsAlso c/o nose bleed, none today, and has noted that her vertigo is now worse, requests she be seen by ENTOV 09/22/2021:Here for her routine aptShe is doing wellC/o lesion on the L lower posterior leg, it is red but non tenderNo new labsOV 01/05/2022:Here for her f/u apt, she is doing well today,she has done labs OV 04/27/2022:Here for her f/u apt, she is doing well today, she did do the labs OV 08/17/2022: Here for her f/u apt, she feels well today, she did do the labs on 08/10/2022 OV 11/23/2022: Here for her routine apt, she is doing well today, she did do the labs on 11/15/2022 OV 03/22/2023: Here for her f/u apt, she is doing well today OV 07/19/2023: Here for her routine apt, she is doing well MD [address], [place], [address], [place] [facility] 07/24/2023 18:32:10 10/23/2023 text/html 02/20/17Here to establish carePMD: In [facility], last apt was a 'long ago'Past Hx:HTNHLDAnemiaSkin cancer L LEReugeniawed social family and surgical historyHere as she would adolph to discuss this today and perhaps get some labs 03/06/17:Here for her follow up aptShe did do the labs on 02/25/17 OV 06/05/17:Here for her routine aptShe did do the labs and is here to review theseShe feels that she is doing well at this time OV 10/16/17:Here for her routine aptShe did do the labs on 10/13/17 and is doing well at this time OV 01/15/18:Here for her routine aptDid get labs on 01/11/18OV 04/16/18:Here for her routine aptShe feels well OV 04/23/18:ACV:Here for URI SxC/o ear ache and also nasal congestionNoted to have some dizzy spells when she turns her head side to sideAlso has an 'itchy eye' on the L eyeNo redness in the eye or eye painNo N/V or diarrheaNo fevers or chillsNo chest pain or SOB or wheezingNo rash noted OV 07/30/18:Here for her routine aptShe did have labsShshahnaz also does not want any new referrals to do any thing with the 'thyroid' and feels that she is doing 'very well', she states that she also wants to wait on the EGD OV 12/10/18:Here for her routine aptShe feels that she is doing well except for R hip painShe did do the labs on 12/04/18C/o R hip pain, she did have a fall a long time ago, pain is constant and is 8/10Hurts to stand on her feet, 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 OV 03/04/2019:Here for ACV:C/o nasal congestionHas some dizzy spells when she turns her head side to sideand front to backNo N/V or diarrheaNo fevers or chillsNo chest pain or SOB or wheezingNo rash notedDoes have lots of sinus tendernessHas a productive cough but no blood and it is whit OV 04/22/2019:Here for her routine aptShe did do the labs and also was in the ER 04/09/2019 and states that she was seen by Dr Vazquez a sap data analyst and was told to do a 'cath'She feels well today, no chest pain or SOB, palpitations, no N/V or diarrhea, no fevers or coughShe is also here for her MWV OV 09/16/2019: Here for her routine aptShe did do the labsShe is c/o R neck pain since about 3 days or so, states she could have 'slept wrong'No N/T or weakness in the UE or LEShe did see Dr Alvarenga and Dr Simmons continues to smoke, advised to quit! OV 03/09/2020:Here for her routine aptShe feels Beatahe did do the labsShe is here for her MWV also OV 10/21/2020:Here for her routine aptShe c/o fatigue and aches and pains 'all over'She did do the labs on 10/14/2020 OV 04/19/2021:Here for her routine aptShe is doing wellShe did her labs and has an apt with mammogram today OV 05/19/2021:Here for ACVC/o R hip pain, L knee pain, she states that the L knee pain occurred when she 'favored her R hip' and while climbing up the stairsAlso c/o nose bleed, none today, and has noted that her vertigo is now worse, requests she be seen by ENTOV 09/22/2021:Here for her routine aptShe is doing wellC/o lesion on the L lower posterior leg, it is red but non tenderNo new labsOV 01/05/2022:Here for her f/u apt, she is doing well today,she has done labs OV 04/27/2022:Here for her f/u apt, she is doing well today, she did do the labs OV 08/17/2022: Here for her f/u apt, she feels well today, she did do the labs on 08/10/2022 OV 11/23/2022: Here for her routine apt, she is doing well today, she did do the labs on 11/15/2022 OV 03/22/2023: Here for her f/u apt, she is doing well today OV 07/19/2023: Here for her routine apt, she is doing well OV 10/23/2023: Here for her f/u apt, she feels well today, has noted some R hip pain, no acute or remote trauma, she did see Dr Carroll in the past and was told she would need surgery, she also has noted some depression, not suicidal or homicidal no sleep disturbances or weight gain or loss Sanjuanita Bach MD [address] [place] [address], [address] [address], [place], [address], [place] - [facility] 10/23/2023 14:46:13 OBGyn Episode No OBEpisode recorded.
== END 2024-05-06 13:40 | disposition home or self-care (01) ==
PROVIDERS: PCP Internal Medicine; Visit Provider Internal Medicine
DX: E83.52 Hypercalcemia (principal); E03.9 Hypothyroidism, unspecified
CPT/HCPCS: 76536

== ENCOUNTER 2024-05-08 08:37 | Outpatient (CLI) | payer MEDICARE, MEDICAID, SELFPAY ==
[2024-05-08 08:53] LABS: Basophils Absolute Auto 0.1 K/mm3 (0.0-0.1); Basophils Percent Auto 0.9 % (0.2-1.2); Eosinophils Absolute Auto 0.7 K/mm3 (0-0.3); Eosinophils Percent Auto 9.9 % (0-4.4); Hematocrit 28.5 % (37.0-47.0); Hemoglobin 8.2 g/dL (12.0-15.0); Immature Granulocyte Absolute 0.02 K/mm3 (0.00-0.031); Immature Granulocyte Percent A 0.3 % (0-0.5); Lymphocytes Absolute Auto 1.34 K/mm3 (0.9-3.2); Mean Corpuscular HGB Conc 28.8 g/dl (32-36); Mean Corpuscular Hemoglobin 20.3 pg (26-34); Mean Corpuscular Volume 70.7 fl (80-100); Mean Platelet Volume 8.8 fl (7.4-10.4); Monocytes Absolute Auto 0.7 K/mm3 (0.1-0.6); Monocytes Percent Auto 9.5 % (2.6-8.5); Neutrophils Absolute Auto 4.3 K/mm3 (1.3-6.7); Neutrophils Percent Auto 60.4 % (45.5-73.1); Platelet Count Result 404 k/mm3 (150-375); Red Blood Count 4.03 M/mm3 (4.2-5.4); Red Cell Distribution Width 19.9 % (11.5-14.5)
[2024-05-08 08:56] LABS: Platelet Estimate Increased (Adequate); Schistocytes None Seen
--- OUTSIDE RECORDS SUMMARY | 2024-05-08 08:56 | XMS_ITS | Data Portability ---
Author Organization [place] [facility], Main Office Address [address] [place] [address] Care Team Providers Care Manager Fixed Income Name Role Phone SANJUANITA BACH Primary Care Provider [phone] Assessment Encounter Date Assessment Date Assessment LastModified [...] available Lab lipid panel, serum 2023 024 [email or web address] Not available 04/23/2024 11:13:21 CMP, serum or plasma 2023 024 [email or web address] Not available 04/23/2024 11:13:21 CBC w/ auto diff 2023 024 RICHIE Not available 01/02/2024 11:49:13 TSH, serum or plasma 2023 024 [email or web address] Not available 04/23/2024 11:13:21 T4, free, serum 2023 024 [email or web address] Not available 04/23/2024 11:13:21 glycohemo globin, total, blood 2023 024 [email or web address] Not available 04/23/2024 11:13:20 microalbu min, urine 2023 024 [email or web address] Not available 04/23/2024 11:13:20 vitamin D, 25-hydrox y, total, serum 2023 024 [email or web address] Not available 04/23/2024 11:13:20 lipid panel, serum [...] D, 25-hydrox y, total, serum 2023 024 [email or web address] Not available 09/20/2023 09:29:45 glycohemo globin, total, blood 2022 023 RICHIE Not available 01/13/2023 17:23:06 microalbu min, urine 2022 023 RICHIE Not available 01/10/2023 16:25:42 vitamin D, 25-hydrox y, total, serum 2022 023 [email or web address] Not available 05/22/2023 09:18:21 lipid panel, serum 2022 023 RICHIE Not available 03/13/2023 14:46:00 CMP, serum or plasma 2022 023 RICHIE Not available 01/09/2023 17:03:26 CBC w/ auto diff 2022 023 RICHIE Not available 01/09/2023 17:03:26 TSH, serum or plasma 2022 023 RICHIE Not available 01/10/2023 16:24:53 T4, free, serum 2022 023 RICHIE Not available 03/13/2023 13:55:34 Referral nephrolog ist referral 2023 024 [email or web address] 2 Tres Duran MD, [address], [place], [address], 04/22/2024 08:34:52 endocrino logy referral 2023 024 RICHIE Giovanni Stark MD, [address], [place], [address], 04/30/2024 15:25:31 otolaryng ologist referral 2023 024 [email or web address] 2 Les Morales, [address] [facility], [place], [address], 04/22/2024 08:34:54 orthopedi c surgeon referral 2023 024 RICHIE Mehta MD, [address], [place], [address], 11/15/2023 13:50:47 pulmonolo gist referral 2023 024 [email or web address] 2 Simon Magana MD, [address] [facility], [place], [address], 04/22/2024 08:34:53 cardiolog ist referral 2023 024 [email or web address] 2 [place], [address], [facility] [address], [place], [address], 04/22/2024 08:34:51 gastroent erologist referral - Please call pt to schedule appt. Thank you 2023 024 [email or web address] 2 Janes Vora MD, [address] [place], [address], 04/22/2024 08:34:49 hematolog ist referral 2023 024 [email or web address] Darian Alvarenga MD, [address], [place], [address], 11/20/2023 08:59:10 podiatris t referral - Please call pt to schedule appt. Thank you 2023 024 [email or web address] 2 Bharath Hoang DPM, [address] [facility] [address], [place], [address], 04/22/2024 08:34:50 nephrolog ist referral 2023 024 Tres Duran MD, [address] [facility] [address], [place], [address], 01/15/2024 12:48:46 otolaryng ologist referral 2023 024 [email or web address] Bayron Morin MD, [address] [facility] [address], [place], [address], 01/15/2024 12:48:47 pulmonolo gist referral 2023 024 [email or web address] Simon Magana MD, [address] [facility], [place], [address], 04/15/2024 17:30:46 cardiolog ist referral 2023 024 [email or web address] [place], [address], [place], [address], 01/15/2024 12:48:44 gastroent erologist referral - Please call pt to schedule appt. Thank you 2023 024 [email or web address] Janes Vora MD, [address] [place], [address], 01/15/2024 12:48:43 hematolog ist referral 2023 024 [email or web address] Darian Alvarenga MD, [address], [place], [address], 08/16/2023 13:56:16 podiatris t referral - Please call pt to schedule appt. Thank you 2023 024 [email or web address] Bharath Hoang DPM, [address], [place], [address], 01/15/2024 12:48:43 nephrolog ist referral 2023 024 [email or web address] Tres Duran MD, [address], [place], [address], 09/20/2023 09:33:10 gastroent erologist referral - Please call pt to schedule appt. Thank you 2023 024 Janes Vora MD, [address] [place], [address], 09/20/2023 09:33:08 podiatris t referral - Please call pt to schedule appt. Thank you 2023 024 [email or web address] Bharath Hoang DPM, [address], [place], [address], 09/20/2023 09:33:09 cardiolog ist referral 2023 024 [email or web address] [place], [address] [facility], [address] [place], [address], 10/16/2023 09:39:54 podiatris t referral - Please call pt to schedule appt. Thank you 2022 023 [email or web address] Bharath Hoang DPM, [address], [place], [address], 11/20/2023 08:58:27 nephrolog ist referral 2022 023 [email or web address] Tres Duran MD, [address], [place], [address], 08/23/2023 08:17:20 cardiolog ist referral 2022 023 [email or web address] [place], [address], [address], [place], [address], 02/24/2023 08:31:37 gastroent erologist referral - Please call pt to schedule appt. Thank you 2022 023 [email or web address] Janes Vora MD, [address] [place], [address], 11/20/2023 08:58:27 Procedures None recorded. Surgeries None recorded. Imaging US, thyroid 2023 024 [email or web address] [facility], [address] [place], [address], 02/05/2024 14:20:47 MAMMO, screening , digital, bilateral 2023 024 RICHIE [facility], [address] [place], [address], 08/21/2023 13:06:19 US, thyroid 2023 024 [email or web address] [facility], [address] [place], [address], 02/05/2024 14:20:52 MAMMO, screening , digital, bilateral 2023 024 [facility], [address] [place], [address], 09/08/2023 15:46:01 Medication Orders sertralin e 25 mg tablet [email or web address] [place] [address] [address] [place], [address], 10/23/2023 14:32:23 Unithroid 150 mcg tablet 2023 024 RICHIE [facility], [address] [facility], [place], [address], 10/23/2023 11:28:10 levothyro xine 150 mcg tablet 2023 024 [email or web address] [facility], [address] [facility], [place], [address], 07/24/2023 18:30:47 Symbicort 160 mcg-4.5 mcg/actua tion HFA aerosol inhaler 2022 023 [email or web address] [facility], [address] [facility], [place], [address], 03/22/2023 09:44:46 Patient TargetsNo targets recorded. Patient Instructions Encounter Date Encounter Id Patient Instructions Last Modified By Organization Details Last Modified Time 07/19/2023 [id number] dementia rating scale-2* [email or web address] Not available 07/19/2023 11:34:17 alcohol misuse* [email or web address] 2 Not available 07/19/2023 11:34:17 depression screening* [email or web address] 2 Not available 07/19/2023 11:34:17 Timed Up and Go test (TUG)* [email or web address] 2 Not available 07/19/2023 11:34:16 multi-dimensiona l health assessment questionnaire* Not available 07/24/2023 15:51:19 advance directiv es: care instructions [email or web address] 2 Not available 07/19/2023 11:34:17 advance care planning: care instructions [email or web address] 2 Not available 07/19/2023 11:34:17 [place] Advance Directives [email or web address] 2 Not available 07/19/2023 11:34:17 diabetic eye exam* [email or web address] Not availa ble 04/15/2024 17:30:56 Personalized Hea [...] Screening: Your next PAP/pelvic in: Referral to electrolysis operator Osteoporosis Screening: Date Screening Last Performed: 05/10/22 Colon Cancer Screening: Colonoscopy Date Screening Last Performed: 06/13/2018 Eye Disease Screening: Ordered Recommended today Dementia Risk: Low I have no recommendations Depression Screening: Negative [email or web address] Not available 07/19/2023 11:19:12 10/23/2023 [id number] diabetic eye exam* [email or web address] Not avai lable 04/22/2024 08:34:28 Reason for Referral Retail Consultant Referral for Increased liver function Please call pt to schedule appt. Thank you Referring Physician: Sanjuanita Bach, Internal Medicine, Encounter Date: 11/23/2022 Aviation Electronic Warfare Operator Referral for Hype rglycemia Please call pt to schedule appt. Thank you Referring Physician: Sanjuanita Bach, Internal Medicine, Encounter Date: 11/23/2022 Confidential Secretary Referral for Es sential hypertension Referring Physician: Noy Barrios, Encounter Date: 11/23/2022 Claim Adjuster Referral for Hy percalcemia Referring Physician: Sanjuanita Bach Internal Medicine, Encounter Date: 11/23/2022 Retail Consultant Referral for Increased liver function Please call pt to schedule appt. Thank you Referring Physician: Sanjuanita Bach Internal Medicine, Encounter Date: 03/22/2023 Aviation Electronic Warfare Operator Referral for Hype rglycemia Please call pt to schedule appt. Thank you Referring Physician: Noy Barrios, Encounter Date: 03/22/2023 Confidential Secretary Referral for Es sential hypertension Referring Physician: Noy Barrios, Encounter Date: 03/22/2023 Claim Adjuster Referral for Hy percalcemia Referring Physician: Noy Barrios, Encounter Date: 03/22/2023 Retail Consultant Referral for Increased liver function Please call pt to schedule appt. Thank you Referring Physician: Noy Barrios, Encounter Date: 07/19/2023 Aviation Electronic Warfare Operator Referral for Hype rglycemia Please call pt to schedule appt. Thank you Referring Physician: Sanjuanita Bach Internal Medicine, Encounter Date: 07/19/2023 Confidential Secretary Referral for Es sential hypertension Referring Physician: Noy Barrios, Encounter Date: 07/19/2023 Claim Adjuster Referral for Hy percalcemia Referring Physician: Noy Barrios, Encounter Date: 07/19/2023 Booking Police Officer Referral for C hronic obstructive pulmonary disease Referring Physician: Noy Barrios Medicine, Encounter Date: 07/19/2023 Senior Datastage Developer Referral fo r Bleeding from nose Referring Physician: Noy Barrios, Encounter Date: 07/19/2023 Referring Physician: Noy Barrios Medicine, Encounter Date: 07/19/2023 Retail Consultant Referral for Increased liver function Please call pt to schedule appt. Thank you Referring Physician: Noy Barrios Medicine, Encounter Date: 10/23/2023 Aviation Electronic Warfare Operator Referral for Hype rglycemia Please call pt to schedule appt. Thank you Referring Physician: Noy Barrios Medicine, Encounter Date: 10/23/2023 Confidential Secretary Referral for Es sential hypertension Referring Physician: Noy Barrios, Encounter Date: 10/23/2023 Claim Adjuster Referral for Hy percalcemia Referring Physician: Noy Barrios, Encounter Date: 10/23/2023 Booking Police Officer Referral for C hronic obstructive pulmonary disease Referring Physician: Sanjuanita Bach [facility], Encounter Date: 10/23/2023 Senior Datastage Developer Referral fo r Bleeding from nose Referring Physician: Sanjuanita Bach [facility] Medicine, Encounter Date: 10/23/2023 Referring Physician: [...] and Rh O POSITI VE Not Available [facility] (Lab) [address] [place], [address], 10/18/2022 14:04:48 11/16/1911/15/2022 CBC/C OMPLE TE BLD COUNT W/DIF F white blood cells 5.0 x10'3 /uL 4.2-[address] [facility] (Lab) [address] [place], [address], 11/15/2022 13:12:50 11/16/1911/15/2022 CBC/C OMPLE TE BLD COUNT W/DIF F red blood cells 4.56 x10'6 /uL 3.80-[address] [facility] (Lab) [address] [place], [address], 11/15/2022 13:12:50 11/16/1911/15/2022 CBC/C OMPLE TE BLD COUNT W/DIF F hemoglobin 12.8 g/dL 12.0-[address] [facility] (Lab) [address] [place], [address], 11/15/2022 13:12:50 11/16/1911/15/2022 CBC/C OMPLE TE BLD COUNT W/DIF F hematocrit 40.2 % 35.7-4 5.7 Not Available [facility] (Lab) [address] [place], [address], 11/15/2022 13:12:50 11/16/1911/15/2022 CBC/C OMPLE TE BLD COUNT W/DIF F mean red cell volume 88.2 fL 82.0-9 9.0 Not Available [facility] (Lab) [address] [place], [address], 11/15/2022 13:12:50 11/16/19 23 11/15/2022 CBC/C OMPLE TE BLD COUNT W/DIF F mean red cell hemoglobin 28.1 pg 27.0-[address] [facility] (Lab) [address] [place], [address], 11/15/2022 13:12:50 11/16/19 23 11/15/2022 CBC/C OMPLE TE BLD COUNT W/DIF F mean RBC HGB concentratio n 31.8 g/dL 31.0-3 6.0 Not Available [facility] (Lab) [address] [place], [address], 11/15/2022 13:12:50 11/16/1911/15/2022 CBC/C OMPLE TE BLD COUNT W/DIF F red cell distribution width 13.9 % 11.8-[address] [facility] (Lab) [address] [place], [address], 11/15/2022 13:12:50 11/16/1911/15/2022 CBC/C OMPLE TE BLD COUNT W/DIF F platelets 301 x10'3 /uL 150-40 0 Not Available [facility] (Lab) [address] [place], [address], 11/15/2022 13:12:50 11/16/1911/15/2022 CBC/C OMPLE TE BLD COUNT W/DIF F mean platelet volume 10.8 fL 9.0-12 .4 Not Available [facility] (Lab) [address] [place], [address], 11/15/2022 13:12:50 11/16/19 23 11/15/2022 CBC/C OMPLE TE BLD COUNT W/DIF F neutrophils 58.6 % 39.0-7 2.0 Not Available [facility] (Lab) [address] [place], [address], 11/15/2022 13:12:50 11/16/19 23 11/15/2022 CBC/C OMPLE TE BLD COUNT W/DIF F lymphocytes 22.4 % 16.0-[address] [facility] (Lab) [address] [place], [address], 11/15/2022 13:12:50 11/16/1911/15/2022 CBC/C OMPLE TE BLD COUNT W/DIF F monocytes 8.9 % 5.0-[address] [facility] (Lab) [address] [place], [address], 11/15/2022 13:12:50 11/16/1911/15/2022 CBC/C OMPLE TE BLD COUNT W/DIF F eosinophils 8.9 % 1.0-7. [address] [facility] (Lab) [address] [place], [address], 11/15/2022 13:12:50 11/16/1911/15/2022 CBC/C OMPLE TE BLD COUNT W/DIF F basophils 1.0 % 0.0-2. 0 Not Available [facility] (Lab) [address] [place], [address], 11/15/2022 13:12:50 11/16/1911/15/2022 CBC/C OMPLE TE BLD COUNT W/DIF F immature granulocytes 0.2 % 0.00-0 .50 Not Available [facility] (Lab) [address] [place], [address], 11/15/2022 13:12:50 11/16/1911/15/2022 CBC/C OMPLE TE BLD COUNT W/DIF F neutrophils, absolute count 2.95 x10'3 /uL 1.5-8. [address] [facility] (Lab) [address] [place], [address], 11/15/2022 13:12:50 11/16/19 23 11/15/2022 CBC/C OMPLE TE BLD COUNT W/DIF F lymphocytes, absolute count 1.13 x10'3 /uL 1.07-3 .43 Not Available [facility] (Lab) [address] [place], [address], 11/15/2022 13:12:50 11/16/1911/15/2022 CBC/C OMPLE TE BLD COUNT W/DIF F monocytes, absolute count 0.45 x10'3 /uL 0.29-0 .99 Not Available [facility] (Lab) [address] [place], [address], 11/15/2022 13:12:50 11/16/19 23 11/15/2022 CBC/C OMPLE TE BLD COUNT W/DIF F eosinophils, absolute count 0.45 x10'3 /uL 0.02-0 .53 Not Available [facility] (Lab) [address] [place], [address], 11/15/2022 13:12:50 11/16/19 23 11/15/2022 CBC/C OMPLE TE BLD COUNT W/DIF F basophils, absolute count 0.05 x10'3 /uL 0.01-0 .08 Not Available [facility] (Lab) [address] [place], [address], 11/15/2022 13:12:50 11/16/19 23 11/15/2022 CBC/C OMPLE TE BLD COUNT W/DIF F immature granulocytes ,absolute 0.01 x10'3 /uL 0.00-0 .05 Not Available [facility] (Lab) [address] [place], [address], 11/15/2022 13:12:50 11/16/19 23 11/15/2022 CBC/C OMPLE TE BLD COUNT W/DIF F nucleated red blood cells 0.0 % -0 Not Available [facility] (Lab) [address] [place], [address], 11/15/2022 13:12:50 11/16/19 23 11/15/2022 CBC/C OMPLE TE BLD COUNT W/DIF F NRBC# 0.00 x10'3 /uL Not Available [facility] (Lab) [address] [place], [address], 11/15/2022 13:12:50 11/16/19 23 11/15/2022 LIPID PANEL cholesterol 163 mg/dL 140-19 9 NIH MATEUS NSUS RECOM MENDA TION FOR SAEED STERO L: ADULT CHILD LOW RISK: <200 <170 BORDE RLINE : <200- 239 ----- HIGH RISK: >240 >200 Not Available [facility] (Lab) [address] [place], [address], 11/15/2022 13:20:10 11/16/19 23 11/15/2022 LIPID PANEL triglyceride s 145 mg/dL 0-150 NIH MATEUS NSUS REPOR T RECOM MENDA TION FOR TRIGL YCERI DAVID: ADULT CHILD LOW RISK: <150 ----- BODER LINE: 150-1 99 ----- HIGH RISK: >200 ----- Not Available [facility] (Lab) [address] [place], [address], 11/15/2022 13:20:10 11/16/19 23 11/15/2022 LIPID PANEL HDL cholesterol 38 mg/dL 40- low Not Available [facility] (Lab) [address] [place], [address], 11/15/2022 13:20:10 11/16/1911/15/2022 LIPID PANEL LDL cholesterol, [...] WILL NOT BE REPOR MIHIR. Not Available [facility] (Lab) [address] [place], [address], 11/15/2022 13:20:10 11/16/1911/15/2022 COMPR EHENS CHAU METAB OLIC PANEL sodium 139 mmol/ L 137-[address] [facility] (Lab) [address] [place], [address], 11/15/2022 13:20:27 11/16/1911/15/2022 COMPR EHENS CHAU METAB OLIC PANEL potassium 4.5 mmol/ L 3.5-5. [address] [facility] (Lab) [address] [place], [address], 11/15/2022 13:20:27 11/16/19 23 11/15/2022 COMPR EHENS CHAU METAB OLIC PANEL chloride 102 mmol/ L 98-107 Not Available [facility] (Lab) [address] [place], [address], 11/15/2022 13:20:27 11/16/19 23 11/15/2022 COMPR EHENS CHAU METAB OLIC PANEL carbon dioxide 29 mmol/ L 22-[address] [facility] (Lab) [address] [place], [address], 11/15/2022 13:20:27 11/16/19 23 11/15/2022 COMPR EHENS CHAU METAB OLIC PANEL anion gap 12.5 mmol/ L 14-22 low Not Available [facility] (Lab) [address] [place], [address], 11/15/2022 13:20:27 11/16/19 23 11/15/2022 COMPR EHENS CHAU METAB OLIC PANEL glucose 130 mg/dL 70-99 high Not Available [facility] (Lab) [address] [place], [address], 11/15/2022 13:20:27 11/16/19 23 11/15/2022 COMPR EHENS CHAU METAB OLIC PANEL BUN 15 mg/dL 8-19 Not Available [facility] (Lab) [address] [place], [address], 11/15/2022 13:20:27 11/16/19 23 11/15/2022 COMPR EHENS CHAU METAB OLIC PANEL creatinine 0.67 mg/dL 0.66-1 .25 Not Available [facility] (Lab) [address] [place], [address], 11/15/2022 13:20:27 11/16/1911/15/2022 COMPR EHENS CHAU METAB OLIC PANEL GFR >60 Refer ence Range : Sublette ge GFR Healt hy Adult : >60 [...] or ethni c subgr oups, such as Hishi nics. Outsi de the valid ated liz [...] s/kdo qi/gf r_cal culat or Not Available [facility] (Lab) [address] [place], [address], 11/15/2022 13:20:27 11/16/19 23 11/15/2022 COMPR EHENS CHAU METAB OLIC PANEL alkaline phosphatase 86 U/L 38-126 Not Available [facility] (Lab) [address] [place], [address], 11/15/2022 13:20:27 11/16/1911/15/2022 COMPR EHENS CHAU METAB OLIC PANEL alanine aminotransfe rase 19 U/L 0-35 Not Available [facility] (Lab) [address] [place], [address], 11/15/2022 13:20:27 11/16/1911/15/2022 COMPR EHENS CHAU METAB OLIC PANEL aspartate aminotransfe rase 19 U/L 15-37 Not Available [facility] (Lab) [address] [place], [address], 11/15/2022 13:20:27 11/16/19 23 11/15/2022 COMPR EHENS CHAU METAB OLIC PANEL bilirubin, total 0.60 mg/dL 0.20-1 .30 Not Available [facility] (Lab) [address] [place], [address], 11/15/2022 13:20:27 11/16/19 23 11/15/2022 COMPR EHENS CHAU METAB OLIC PANEL calcium 10.9 mg/dL 8.4-10 .2 high Not Available [facility] (Lab) [address] [place], [address], 11/15/2022 13:20:27 11/16/19 23 11/15/2022 COMPR EHENS CHAU METAB OLIC PANEL total protein 7.5 g/dL 6.3-8. 2 Not Available [facility] (Lab) [address] [place], [address], 11/15/2022 13:20:27 11/16/19 23 11/15/2022 COMPR EHENS CHAU METAB OLIC PANEL albumin 4.4 g/dL 3.0-4. 4 Not Available [facility] (Lab) [address] [place], [address], 11/15/2022 13:20:27 11/16/19 23 11/15/2022 COMPR EHENS CHAU METAB OLIC PANEL globulin 3.1 g/dL 2.6-4. 2 Not Available [facility] (Lab) [address] [place], [address], 11/15/2022 13:20:27 11/16/1911/15/2022 COMPR EHENS CHAU METAB OLIC PANEL A/G ratio 1.4 ratio 1.0-2. 0 Not Available [facility] (Lab) [address] [place], [address], 11/15/2022 13:20:27 11/16/19 23 11/15/2022 T4 FREE free T4 1.55 NG/dL 0.78-2 .19 Not Available [facility] (Lab) [address] [place], [address], 11/15/2022 13:33:01 11/16/1911/15/2022 TSH thyroid-stim ulating hormone 3.130 uIU/m L 0.465- 4.680 Not Available [facility] (Lab) [address] [place], [address], 11/15/2022 13:46:20 11/16/19 23 11/15/2022 VITAM IN D 25-HY DROXY [id number] 39.1 NG/mL 30-100 Vitam in D Statu s: Defic ient: <20 ng/mL Insuf ficie nt: 20-29 ng/mL Suffi cient : 30-10 0 ng/mL Not Available [facility] (Lab) [address] [place], [address], 11/15/2022 14:16:27 11/16/19 23 11/15/2022 MICRO ALBUM IN RANDO M URINE microalbumin , urine <6.0 mg/L 0.0-16 .6 Not Available [facility] (Lab) [address] [place], [address], 11/15/2022 14:21:20 11/16/1911/15/2022 HEMOG LOBIN A1C HA1C 5.8 % 4.0-6. 0 Diabe shaun Scree efren Crite len: <5.7% Consi stent with absen ce of diabe shaun 5.7-6 .4% Consi stent with incre ased risk for diabe shaun (pred iabet es) >OR=6 .5% Consi stent with diabe shaun REFER ENCE: Diabe shaun Care 39(Enriquez ppl.1 ):s13 -s22 Not Available [facility] (Lab) [address] [place], [address], 11/15/2022 14:35:31 01/14/20 23 01/13/2023 HEMOG LOBIN A1C HA1C 6.3 % 4.0-6. 0 high Diabe shaun Scree efren Crite len: <5.7% Consi stent with absen ce of diabe shaun 5.7-6 .4% Consi stent with incre ased risk for diabe shaun (pred iabet es) >OR=6 .5% Consi stent with diabe shaun REFER ENCE: Diabe shaun Care 39(Enriquez ppl.1 ):s13 -s22 Not Available [facility] (Lab) [address] [place], [address], 01/13/2023 17:23:06 03/13/19 24 03/13/2023 CBC/C OMPLE TE BLD COUNT W/DIF F white blood cells 5.3 x10'3 /uL 4.2-10 .8 Not Available [facility] (Lab) [address] [facility] [place], [address], 03/13/2023 13:00:44 03/13/19 24 03/13/2023 CBC/C OMPLE TE BLD COUNT W/DIF F red blood cells 4.48 x10'6 /uL 3.80-5 .20 Not Available [facility] (Lab) [address] [place], [address], 03/13/2023 13:00:44 03/13/19 24 03/13/2023 CBC/C OMPLE TE BLD COUNT W/DIF F hemoglobin 12.2 g/dL 12.0-1 5.6 Not Available [facility] (Lab) [address] [place], [address], 03/13/2023 13:00:44 03/13/19 24 03/13/2023 CBC/C OMPLE TE BLD COUNT W/DIF F hematocrit 38.6 % 35.7-4 5.7 Not Available [facility] (Lab) [address] [place], [address], 03/13/2023 13:00:44 03/13/19 24 03/13/2023 CBC/C OMPLE TE BLD COUNT W/DIF F mean red cell volume 86.2 fL 82.0-9 9.0 Not Available [facility] (Lab) [address] [place], [address], 03/13/2023 13:00:44 03/13/19 24 03/13/2023 CBC/C OMPLE TE BLD COUNT W/DIF F mean red cell hemoglobin 27.2 pg 27.0-3 3.0 Not Available [facility] (Lab) [address] [place], [address], 03/13/2023 13:00:44 03/13/19 24 03/13/2023 CBC/C OMPLE TE BLD COUNT W/DIF F mean RBC HGB concentratio n 31.6 g/dL 31.0-3 6.0 Not Available [facility] (Lab) [address] [place], [address], 03/13/2023 13:00:44 03/13/19 24 03/13/2023 CBC/C OMPLE TE BLD COUNT W/DIF F red cell distribution width 16.0 % 11.8-1 5.5 high Not Available [facility] (Lab) [address] [place], [address], 03/13/2023 13:00:44 03/13/19 24 03/13/2023 CBC/C OMPLE TE BLD COUNT W/DIF F platelets 334 x10'3 /uL 150-40 0 Not Available [facility] (Lab) [address] [place], [address], 03/13/2023 13:00:44 03/13/19 24 03/13/2023 CBC/C OMPLE TE BLD COUNT W/DIF F mean platelet volume 10.8 fL 9.0-12 .4 Not Available [facility] (Lab) [address] [place], [address], 03/13/2023 13:00:44 03/13/19 24 03/13/2023 CBC/C OMPLE TE BLD COUNT W/DIF F neutrophils 58.5 % 39.0-7 2.0 Not Available [facility] (Lab) [address] [place], [address], 03/13/2023 13:00:44 03/13/19 24 03/13/2023 CBC/C OMPLE TE BLD COUNT W/DIF F lymphocytes 18.9 % 16.0-4 7.0 Not Available [facility] (Lab) [address] [place], [address], 03/13/2023 13:00:44 03/13/19 24 03/13/2023 CBC/C OMPLE TE BLD COUNT W/DIF F monocytes 9.8 % 5.0-12 .0 Not Available [facility] (Lab) [address] [place], [address], 03/13/2023 13:00:44 03/13/19 24 03/13/2023 CBC/C OMPLE TE BLD COUNT W/DIF F eosinophils 11.3 % 1.0-7. 0 high Not Available [facility] (Lab) [address] [place], [address], 03/13/2023 13:00:44 03/13/19 24 03/13/2023 CBC/C OMPLE TE BLD COUNT W/DIF F basophils 1.3 % 0.0-2. 0 Not Available [facility] (Lab) [address] [place], [address], 03/13/2023 13:00:44 03/13/19 24 03/13/2023 CBC/C OMPLE TE BLD COUNT W/DIF F immature granulocytes 0.2 % 0.00-0 .50 Not Available [facility] (Lab) [address] [place], [address], 03/13/2023 13:00:44 03/13/19 24 03/13/2023 CBC/C OMPLE TE BLD COUNT W/DIF F neutrophils, absolute count 3.12 x10'3 /uL 1.5-8. 0 Not Available [facility] (Lab) [address] [place], [address], 03/13/2023 13:00:44 03/13/19 24 03/13/2023 CBC/C OMPLE TE BLD COUNT W/DIF F lymphocytes, absolute count 1.01 x10'3 /uL 1.07-3 .43 low Not Available [facility] (Lab) [address] [place], [address], 03/13/2023 13:00:44 03/13/19 24 03/13/2023 CBC/C OMPLE TE BLD COUNT W/DIF F monocytes, absolute count 0.52 x10'3 /uL 0.29-0 .99 Not Available [facility] (Lab) [address] [place], [address], 03/13/2023 13:00:44 03/13/19 24 03/13/2023 CBC/C OMPLE TE BLD COUNT W/DIF F eosinophils, absolute count 0.60 x10'3 /uL 0.02-0 .53 high Not Available [facility] (Lab) [address] [place], [address], 03/13/2023 13:00:44 03/13/19 24 03/13/2023 CBC/C OMPLE TE BLD COUNT W/DIF F basophils, absolute count 0.07 x10'3 /uL 0.01-0 .08 Not Available [facility] (Lab) [address] [place], [address], 03/13/2023 13:00:44 03/13/19 24 03/13/2023 CBC/C OMPLE TE BLD COUNT W/DIF F immature granulocytes ,absolute 0.01 x10'3 /uL 0.00-0 .05 Not Available [facility] (Lab) [address] [place], [address], 03/13/2023 13:00:44 03/13/19 24 03/13/2023 CBC/C OMPLE TE BLD COUNT W/DIF F nucleated red blood cells 0.0 % -0 Not Available [facility] (Lab) [address] [place], [address], 03/13/2023 13:00:44 03/13/19 24 03/13/2023 CBC/C OMPLE TE BLD COUNT W/DIF F NRBC# 0.00 x10'3 /uL Not Available [facility] (Lab) [address] [place], [address], 03/13/2023 13:00:44 03/13/19 24 03/13/2023 MICRO ALBUM IN RANDO M URINE microalbumin , urine 8.2 mg/L 0.0-16 .6 Not Available [facility] (Lab) [address] [place], [address], 03/13/2023 13:03:32 03/13/19 24 03/13/2023 T4 FREE free T4 1.40 NG/dL 0.78-2 .19 Not Available [facility] (Lab) [address] [place], [address], 03/13/2023 13:55:34 03/13/19 24 03/13/2023 VITAM IN D 25-HY DROXY [id number] 30.8 NG/mL 30-100 Vitam in D Statu s: Defic ient: <20 ng/mL Insuf ficie nt: 20-29 ng/mL Suffi cient : 30-10 0 ng/mL Not Available [facility] (Lab) [address] [place], [address], 03/13/2023 13:55:44 03/13/19 24 03/13/2023 TSH thyroid-stim ulating hormone 5.300 uIU/m L 0.465- 4.680 high Not Available [facility] (Lab) [address] [place], [address], 03/13/2023 14:04:38 03/13/19 24 03/13/2023 HEMOG LOBIN A1C HA1C 5.5 % 4.0-6. 0 Diabe shaun Scree efren Crite len: <5.7% Consi stent with absen ce of diabe shaun 5.7-6 .4% Consi stent with incre ased risk for diabe shaun (pred iabet es) >OR=6 .5% Consi stent with diabe shaun REFER ENCE: Diabe shaun Care 2016, 39(Enriquez ppl.1 ):s13 -s22 Not Available [facility] (Lab) [address] [place], [address], 03/13/2023 14:33:53 03/13/19 24 03/13/2023 LIPID PANEL cholesterol 181 mg/dL 140-19 9 NIH MATEUS NSUS RECOM MENDA TION FOR SAEED STERO L: ADULT CHILD LOW RISK: <200 <170 BORDE RLINE : <200- 239 ----- HIGH RISK: >240 >200 Not Available [facility] (Lab) [address] [place], [address], 03/13/2023 14:45:59 03/13/19 24 03/13/2023 LIPID PANEL triglyceride s 200 mg/dL 0-150 high NIH MATEUS NSUS REPOR T RECOM MENDA TION FOR TRIGL YCERI DAVID: ADULT CHILD LOW RISK: <150 ----- BODER LINE: 150-1 99 ----- HIGH RISK: >200 ----- Not Available [facility] (Lab) [address] [place], [address], 03/13/2023 14:45:59 03/13/19 24 03/13/2023 LIPID PANEL HDL cholesterol 42 mg/dL 40- Not Available [facility] (Lab) [address] [place], [address], 03/13/2023 14:45:59 03/13/19 24 03/13/2023 LIPID PANEL [...] WILL NOT BE REPOR MIHIR. Not Available [facility] (Lab) [address] [place], [address], 03/13/2023 14:45:59 03/13/19 24 03/13/2023 COMPR EHENS CHAU METAB OLIC PANEL sodium 138 mmol/ L 137-14 5 Not Available [facility] (Lab) [address] [place], [address], 03/13/2023 14:46:07 03/13/19 24 03/13/2023 COMPR EHENS CHAU METAB OLIC PANEL potassium 4.5 mmol/ L 3.5-5. [address] [facility] (Lab) [address] [place], [address], 03/13/2023 14:46:07 03/13/19 24 03/13/2023 COMPR EHENS CHAU METAB OLIC PANEL chloride 103 mmol/ L 98-[address] [facility] (Lab) [address] [place], [address], 03/13/2023 14:46:07 03/13/19 24 03/13/2023 COMPR EHENS CHAU METAB OLIC PANEL carbon dioxide 26 mmol/ L 22-[address] [facility] (Lab) [address] [place], [address], 03/13/2023 14:46:07 03/13/19 24 03/13/2023 COMPR EHENS CHAU METAB OLIC PANEL anion gap 13.5 mmol/ L 14-22 low Not Available [facility] (Lab) [address] [place], [address], 03/13/2023 14:46:07 03/13/19 24 03/13/2023 COMPR EHENS CHAU METAB OLIC PANEL glucose 133 mg/dL 70-99 high Not Available [facility] (Lab) [address] [place], [address], 03/13/2023 14:46:07 03/13/19 24 03/13/2023 COMPR EHENS CHAU METAB OLIC PANEL BUN 16 mg/dL 8-19 Not Available [facility] (Lab) [address] [place], [address], 03/13/2023 14:46:07 03/13/19 24 03/13/2023 COMPR EHENS CHAU METAB OLIC PANEL creatinine 0.69 mg/dL 0.66-1 .25 Not Available [facility] (Lab) [address] [place], [address], 03/13/2023 14:46:07 03/13/19 24 03/13/2023 COMPR EHENS CHAU METAB OLIC PANEL GFR >60 Refer ence Range : Sublette ge GFR Healt hy Adult : >60 [...] or ethni c subgr oups, such as [facility] nics. Outsi de the valid ated [...] calcu lator is avail able on the [facility] websi te: https :[email or web address] [email or web address] rg/pr ofess ional s/kdo qi/gf r_cal culat or Not Available [facility] (Lab) [address] [place], [address], 03/13/2023 14:46:07 03/13/19 24 03/13/2023 COMPR EHENS CHAU METAB OLIC PANEL alkaline phosphatase 95 U/L 38-126 Not Available [facility] (Lab) [address] [place], [address], 03/13/2023 14:46:07 03/13/19 24 03/13/2023 COMPR EHENS CHAU METAB OLIC PANEL alanine aminotransfe rase 19 U/L 0-35 Not Available [facility] (Lab) [address] [place], [address], 03/13/2023 14:46:07 03/13/19 24 03/13/2023 COMPR EHENS CHAU METAB OLIC PANEL aspartate aminotransfe rase 20 U/L 15-37 Not Available [facility] (Lab) [address] [place], [address], 03/13/2023 14:46:07 03/13/19 24 03/13/2023 COMPR EHENS CHAU METAB OLIC PANEL bilirubin, total 0.80 mg/dL 0.20-1 .30 Not Available [facility] (Lab) [address] [place], [address], 03/13/2023 14:46:07 03/13/19 24 03/13/2023 COMPR EHENS CHAU METAB OLIC PANEL calcium 10.7 mg/dL 8.4-10 .2 high Not Available [facility] (Lab) [address] [place], [address], 03/13/2023 14:46:07 03/13/19 24 03/13/2023 COMPR EHENS CHAU METAB OLIC PANEL total protein 7.6 g/dL 6.3-8. 2 Not Available [facility] (Lab) [address] [place], [address], 03/13/2023 14:46:07 03/13/19 24 03/13/2023 COMPR EHENS CHAU METAB OLIC PANEL albumin 4.6 g/dL 3.0-4. 4 high Not Available [facility] (Lab) [address] [place], [address], 03/13/2023 14:46:07 03/13/19 24 03/13/2023 COMPR EHENS CHAU METAB OLIC PANEL globulin 3.0 g/dL 2.6-4. 2 Not Available [facility] (Lab) [address] [facility] [place], [address], 03/13/2023 14:46:07 03/13/19 24 03/13/2023 COMPR EHENS CHAU METAB OLIC PANEL A/G ratio 1.5 ratio 1.0-2. 0 Not Available [facility] (Lab) [address] [place], [address], 03/13/2023 14:46:07 07/12/19 24 07/12/2023 CBC/C OMPLE TE BLD COUNT W/DIF F white blood cells 5.5 x10'3 /uL 4.2-10 .8 Not Available [facility] (Lab) [address] [place], [address], 07/12/2023 13:52:06 07/12/19 24 07/12/2023 CBC/C OMPLE TE BLD COUNT W/DIF F red blood cells 4.11 x10'6 /uL 3.80-5 .20 Not Available [facility] (Lab) [address] [place], [address], 07/12/2023 13:52:06 07/12/19 24 07/12/2023 CBC/C OMPLE TE BLD COUNT W/DIF F hemoglobin 11.1 g/dL 12.0-1 5.6 low Not Available [facility] (Lab) [address] [place], [address], 07/12/2023 13:52:06 07/12/19 24 07/12/2023 CBC/C OMPLE TE BLD COUNT W/DIF F hematocrit 35.2 % 35.7-4 5.7 low Not Available [facility] (Lab) [address] [place], [address], 07/12/2023 13:52:06 07/12/19 24 07/12/2023 CBC/C OMPLE TE BLD COUNT W/DIF F mean red cell volume 85.6 fL 82.0-9 9.0 Not Available [facility] (Lab) [address] [place], [address], 07/12/2023 13:52:06 07/12/19 24 07/12/2023 CBC/C OMPLE TE BLD COUNT W/DIF F mean red cell hemoglobin 27.0 pg 27.0-3 3.0 Not Available [facility] (Lab) [address] [place], [address], 07/12/2023 13:52:06 07/12/19 24 07/12/2023 CBC/C OMPLE TE BLD COUNT W/DIF F mean RBC HGB concentratio n 31.5 g/dL 31.0-3 6.0 Not Available [facility] (Lab) [address] [place], [address], 07/12/2023 13:52:06 07/12/19 24 07/12/2023 CBC/C OMPLE TE BLD COUNT W/DIF F red cell distribution width 16.2 % 11.8-1 5.5 high Not Available [facility] (Lab) [address] [place], [address], 07/12/2023 13:52:06 07/12/19 24 07/12/2023 CBC/C OMPLE TE BLD COUNT W/DIF F platelets 361 x10'3 /uL 150-[address] [facility] (Lab) [address] [place], [address], 07/12/2023 13:52:06 07/12/19 24 07/12/2023 CBC/C OMPLE TE BLD COUNT W/DIF F mean platelet volume 10.6 fL 9.0-12 .4 Not Available [facility] (Lab) [address] [place], [address], 07/12/2023 13:52:06 07/12/19 24 07/12/2023 CBC/C OMPLE TE BLD COUNT W/DIF F neutrophils 63.0 % 39.0-[address] [facility] (Lab) [address] [place], [address], 07/12/2023 13:52:06 07/12/19 24 07/12/2023 CBC/C OMPLE TE BLD COUNT W/DIF F lymphocytes 18.7 % 16.0-[address] [facility] (Lab) [address] [place], [address], 07/12/2023 13:52:06 07/12/19 24 07/12/2023 CBC/C OMPLE TE BLD COUNT W/DIF F monocytes 9.3 % 5.0-12 .0 Not Available [facility] (Lab) [address] [place], [address], 07/12/2023 13:52:06 07/12/19 24 07/12/2023 CBC/C OMPLE TE BLD COUNT W/DIF F eosinophils 7.9 % 1.0-7. 0 high Not Available [facility] (Lab) [address] [place], [address], 07/12/2023 13:52:06 07/12/19 24 07/12/2023 CBC/C OMPLE TE BLD COUNT W/DIF F basophils 0.9 % 0.0-2. 0 Not Available [facility] (Lab) [address] [place], [address], 07/12/2023 13:52:06 07/12/19 24 07/12/2023 CBC/C OMPLE TE BLD COUNT W/DIF F immature granulocytes 0.2 % 0.00-0 .50 Not Available [facility] (Lab) [address] [facility] [place], [address], 07/12/2023 13:52:06 07/12/19 24 07/12/2023 CBC/C OMPLE TE BLD COUNT W/DIF F neutrophils, absolute count 3.44 x10'3 /uL 1.5-8. 0 Not Available [facility] (Lab) [address] [place], [address], 07/12/2023 13:52:06 07/12/19 24 07/12/2023 CBC/C OMPLE TE BLD COUNT W/DIF F lymphocytes, absolute count 1.02 x10'3 /uL 1.07-3 .43 low Not Available [facility] (Lab) [address] [place], [address], 07/12/2023 13:52:06 07/12/19 24 07/12/2023 CBC/C OMPLE TE BLD COUNT W/DIF F monocytes, absolute count 0.51 x10'3 /uL 0.29-0 .99 Not Available [facility] (Lab) [address] [place], [address], 07/12/2023 13:52:06 07/12/19 24 07/12/2023 CBC/C OMPLE TE BLD COUNT W/DIF F eosinophils, absolute count 0.43 x10'3 /uL 0.02-0 .53 Not Available [facility] (Lab) [address] [place], [address], 07/12/2023 13:52:06 07/12/19 24 07/12/2023 CBC/C OMPLE TE BLD COUNT W/DIF F basophils, absolute count 0.05 x10'3 /uL 0.01-0 .08 Not Available [facility] (Lab) [address] [place], [address], 07/12/2023 13:52:06 07/12/19 24 07/12/2023 CBC/C OMPLE TE BLD COUNT W/DIF F immature granulocytes ,absolute 0.01 x10'3 /uL 0.00-0 .05 Not Available [facility] (Lab) [address] [place], [address], 07/12/2023 13:52:06 07/12/19 24 07/12/2023 CBC/C OMPLE TE BLD COUNT W/DIF F nucleated red blood cells 0.0 % -0 Not Available [facility] (Lab) [address] [place], [address], 07/12/2023 13:52:06 07/12/19 24 07/12/2023 CBC/C OMPLE TE BLD COUNT W/DIF F NRBC# 0.00 x10'3 /uL Not Available [facility] (Lab) [address] [place], [address], 07/12/2023 13:52:06 07/12/19 24 07/12/2023 LIPID PANEL cholesterol 190 mg/dL 140-19 9 NIH MATEUS NSUS RECOM MENDA TION FOR SAEED STERO L: ADULT CHILD LOW RISK: <200 <170 BORDE RLINE : <200- 239 ----- HIGH RISK: >240 >200 Not Available [facility] (Lab) [address] [place], [address], 07/12/2023 14:23:16 07/12/19 24 07/12/2023 LIPID PANEL triglyceride s 145 mg/dL 0-150 NIH MATEUS NSUS REPOR T RECOM MENDA TION FOR TRIGL YCERI DAVID: ADULT CHILD LOW RISK: <150 ----- BODER LINE: 150-1 99 ----- HIGH RISK: >200 ----- Not Available [facility] (Lab) [address] [place], [address], 07/12/2023 14:23:16 07/12/19 24 07/12/2023 LIPID PANEL HDL cholesterol 45 mg/dL 40- Not Available [facility] (Lab) [address] [place], [address], 07/12/2023 14:23:16 07/12/19 24 07/12/2023 LIPID PANEL [...] WILL NOT BE REPOR MIHIR. Not Available [facility] (Lab) [address] [place], [address], 07/12/2023 14:23:16 07/12/19 24 07/12/2023 COMPR EHENS CHAU METAB OLIC PANEL sodium 138 mmol/ L 137-14 5 Not Available [facility] (Lab) [address] [place], [address], 07/12/2023 14:23:28 07/12/19 24 07/12/2023 COMPR EHENS CHAU METAB OLIC PANEL potassium 4.6 mmol/ L 3.5-5. 1 Not Available [facility] (Lab) [address] [place], [address], 07/12/2023 14:23:28 07/12/19 24 07/12/2023 COMPR EHENS CAHU METAB OLIC PANEL chloride 105 mmol/ L 98-107 Not Available [facility] (Lab) [address] [place], [address], 07/12/2023 14:23:28 07/12/19 24 07/12/2023 COMPR EHENS CHAU METAB OLIC PANEL carbon dioxide 26 mmol/ L 22-30 Not Available [facility] (Lab) [address] [place], [address], 07/12/2023 14:23:28 07/12/19 24 07/12/2023 COMPR EHENS CHAU METAB OLIC PANEL anion gap 11.6 mmol/ L 14-22 low Not Available [facility] (Lab) [address] [place], [address], 07/12/2023 14:23:28 07/12/19 24 07/12/2023 COMPR EHENS CHAU METAB OLIC PANEL glucose 124 mg/dL 70-99 high Not Available [facility] (Lab) [address] [place], [address], 07/12/2023 14:23:28 07/12/19 24 07/12/2023 COMPR EHENS CHAU METAB OLIC PANEL BUN 14 mg/dL 8-19 Not Available [facility] (Lab) [address] [place], [address], 07/12/2023 14:23:28 07/12/19 24 07/12/2023 COMPR EHENS CHAU METAB OLIC PANEL creatinine 0.74 mg/dL 0.66-1 .25 Not Available [facility] (Lab) [address] [place], [address], 07/12/2023 14:23:28 07/12/19 24 07/12/2023 COMPR EHENS CHAU METAB OLIC PANEL GFR >60 Refer ence Range : Sublette ge GFR Healt hy Adult : >60 [...] calcu lator is avail able on the [facility] websi te: https :[email or web address] [email or web address] rg/pr ofess ional s/kdo qi/gf r_cal culat or Not Available [facility] (Lab) [address] [place], [address], 07/12/2023 14:23:28 07/12/19 24 07/12/2023 COMPR EHENS CHAU METAB OLIC PANEL alkaline phosphatase 91 U/L 38-126 Not Available [facility] (Lab) [address] [place], [address], 07/12/2023 14:23:28 07/12/19 24 07/12/2023 COMPR EHENS CHAU METAB OLIC PANEL alanine aminotransfe rase 22 U/L 0-35 Not Available [facility] (Lab) [address] [place], [address], 07/12/2023 14:23:28 07/12/19 24 07/12/2023 COMPR EHENS CHAU METAB OLIC PANEL aspartate aminotransfe rase 23 U/L 15-37 Not Available [facility] (Lab) [address] [place], [address], 07/12/2023 14:23:28 07/12/19 24 07/12/2023 COMPR EHENS CHAU METAB OLIC PANEL bilirubin, total 0.80 mg/dL 0.20-1 .30 Not Available [facility] (Lab) [address] [place], [address], 07/12/2023 14:23:28 07/12/19 24 07/12/2023 COMPR EHENS CHAU METAB OLIC PANEL calcium 10.3 mg/dL 8.4-10 .2 high Not Available [facility] (Lab) [address] [place], [address], 07/12/2023 14:23:28 07/12/19 24 07/12/2023 COMPR EHENS CHAU METAB OLIC PANEL total protein 7.2 g/dL 6.3-8. 2 Not Available [facility] (Lab) [address] [place], [address], 07/12/2023 14:23:28 07/12/19 24 07/12/2023 COMPR EHENS CHAU METAB OLIC PANEL albumin 4.4 g/dL 3.0-4. 4 Not Available [facility] (Lab) [address] [place], [address], 07/12/2023 14:23:28 07/12/19 24 07/12/2023 COMPR EHENS CHAU METAB OLIC PANEL globulin 2.8 g/dL 2.6-4. 2 Not Available [facility] (Lab) [address] [place], [address], 07/12/2023 14:23:28 07/12/19 24 07/12/2023 COMPR EHENS CHAU METAB OLIC PANEL A/G ratio 1.6 ratio 1.0-2. 0 Not Available [facility] (Lab) [address] [place], [address], 07/12/2023 14:23:28 07/12/19 24 07/12/2023 T4 FREE free T4 1.31 NG/dL 0.78-2 .19 Not Available [facility] (Lab) [address] [place], [address], 07/12/2023 14:38:45 07/12/19 24 07/12/2023 VITAM IN D 25-HY DROXY [id number] 21.9 NG/mL 30-100 low Vitam in D Statu s: Defic ient: <20 ng/mL Insuf ficie nt: 20-29 ng/mL Suffi cient : 30-10 0 ng/mL Not Available [facility] (Lab) [address] [place], [address], 07/12/2023 14:39:06 07/12/19 24 07/12/2023 TSH thyroid-stim ulating hormone 11.600 uIU/m L 0.465- 4.680 high Not Available [facility] (Lab) [address] [place], [address], 07/12/2023 15:02:58 07/12/19 24 07/12/2023 MICRO ALBUM IN RANDO M URINE microalbumin , urine <6.0 mg/L 0.0-16 .6 Not Available [facility] (Lab) [address] [place], [address], 07/12/2023 15:43:34 07/12/19 24 07/12/2023 HEMOG LOBIN A1C HA1C 5.6 % 4.0-6. 0 Diabe shaun Scree efren Crite len: <5.7% Consi stent with absen ce of diabe shaun 5.7-6 .4% Consi stent with incre ased risk for diabe shaun (pred iabet es) >OR=6 .5% Consi stent with diabe shanu REFER ENCE: Diabe shaun Care 2015, 39(Enriquez ppl.1 ):s13 -s22 Not Available [facility] (Lab) [address] [place], [address], 07/12/2023 16:17:14 10/16/19 24 10/16/2023 CBC/C OMPLE TE BLD COUNT W/DIF F white blood cells 5.0 x10'3 /uL 4.2-[address] [facility] (Lab) [address] [place], [address], 10/16/2023 13:12:37 10/16/19 24 10/16/2023 CBC/C OMPLE TE BLD COUNT W/DIF F red blood cells 4.71 x10'6 /uL 3.80-5 .20 Not Available [facility] (Lab) [address] [facility] [place], [address], 10/16/2023 13:12:37 10/16/19 24 10/16/2023 CBC/C OMPLE TE BLD COUNT W/DIF F hemoglobin 13.2 g/dL 12.0-[address] [facility] (Lab) [address] [place], [address], 10/16/2023 13:12:37 10/16/19 24 10/16/2023 CBC/C OMPLE TE BLD COUNT W/DIF F hematocrit 41.1 % 35.7-4 5.7 Not Available [facility] (Lab) [address] [place], [address], 10/16/2023 13:12:37 10/16/19 24 10/16/2023 CBC/C OMPLE TE BLD COUNT W/DIF F mean red cell volume 87.3 fL 82.0-9 9.0 Not Available [facility] (Lab) [address] [place], [address], 10/16/2023 13:12:37 10/16/19 24 10/16/2023 CBC/C OMPLE TE BLD COUNT W/DIF F mean red cell hemoglobin 28.0 pg 27.0-3 3.0 Not Available [facility] (Lab) [address] [place], [address], 10/16/2023 13:12:37 10/16/19 24 10/16/2023 CBC/C OMPLE TE BLD COUNT W/DIF F mean RBC HGB concentratio n 32.1 g/dL 31.0-[address] [facility] (Lab) [address] [place], [address], 10/16/2023 13:12:37 10/16/19 24 10/16/2023 CBC/C OMPLE TE BLD COUNT W/DIF F red cell distribution width 14.8 % 11.8-1 5.5 Not Available [facility] (Lab) [address] [place], [address], 10/16/2023 13:12:37 10/16/19 24 10/16/2023 CBC/C OMPLE TE BLD COUNT W/DIF F platelets 300 x10'3 /uL 150-[address] [facility] (Lab) [address] [place], [address], 10/16/2023 13:12:37 10/16/19 24 10/16/2023 CBC/C OMPLE TE BLD COUNT W/DIF F mean platelet volume 10.7 fL 9.0-12 .4 Not Available [facility] (Lab) [address] [place], [address], 10/16/2023 13:12:37 10/16/19 24 10/16/2023 CBC/C OMPLE TE BLD COUNT W/DIF F neutrophils 57.8 % 39.0-7 2.0 Not Available [facility] (Lab) [address] [place], [address], 10/16/2023 13:12:37 10/16/19 24 10/16/2023 CBC/C OMPLE TE BLD COUNT W/DIF F lymphocytes 21.2 % 16.0-4 7.0 Not Available [facility] (Lab) [address] [place], [address], 10/16/2023 13:12:37 10/16/19 24 10/16/2023 CBC/C OMPLE TE BLD COUNT W/DIF F monocytes 9.8 % 5.0-12 .0 Not Available [facility] (Lab) [address] [place], [address], 10/16/2023 13:12:37 10/16/19 24 10/16/2023 CBC/C OMPLE TE BLD COUNT W/DIF F eosinophils 9.8 % 1.0-7. 0 high Not Available [facility] (Lab) [address] [place], [address], 10/16/2023 13:12:37 10/16/19 24 10/16/2023 CBC/C OMPLE TE BLD COUNT W/DIF F basophils 1.0 % 0.0-2. 0 Not Available [facility] (Lab) [address] [place], [address], 10/16/2023 13:12:37 10/16/19 24 10/16/2023 CBC/C OMPLE TE BLD COUNT W/DIF F immature granulocytes 0.4 % 0.00-0 .50 Not Available [facility] (Lab) [address] [place], [address], 10/16/2023 13:12:37 10/16/19 24 10/16/2023 CBC/C OMPLE TE BLD COUNT W/DIF F neutrophils, absolute count 2.89 x10'3 /uL 1.5-8. 0 Not Available [facility] (Lab) [address] [place], [address], 10/16/2023 13:12:37 10/16/19 24 10/16/2023 CBC/C OMPLE TE BLD COUNT W/DIF F lymphocytes, absolute count 1.06 x10'3 /uL 1.07-3 .43 low Not Available [facility] (Lab) [address] [place], [address], 10/16/2023 13:12:37 10/16/19 24 10/16/2023 CBC/C OMPLE TE BLD COUNT W/DIF F monocytes, absolute count 0.49 x10'3 /uL 0.29-0 .99 Not Available [facility] (Lab) [address] [place], [address], 10/16/2023 13:12:37 10/16/19 24 10/16/2023 CBC/C OMPLE TE BLD COUNT W/DIF F eosinophils, absolute count 0.49 x10'3 /uL 0.02-0 .53 Not Available [facility] (Lab) [address] [place], [address], 10/16/2023 13:12:37 10/16/19 24 10/16/2023 CBC/C OMPLE TE BLD COUNT W/DIF F basophils, absolute count 0.05 x10'3 /uL 0.01-0 .08 Not Available [facility] (Lab) [address] [place], [address], 10/16/2023 13:12:37 10/16/19 24 10/16/2023 CBC/C OMPLE TE BLD COUNT W/DIF F immature granulocytes ,absolute 0.02 x10'3 /uL 0.00-0 .05 Not Available [facility] (Lab) [address] [place], [address], 10/16/2023 13:12:37 10/16/19 24 10/16/2023 CBC/C OMPLE TE BLD COUNT W/DIF F nucleated red blood cells 0.0 % -0 Not Available [facility] (Lab) [address] [place], [address], 10/16/2023 13:12:37 10/16/19 24 10/16/2023 CBC/C OMPLE TE BLD COUNT W/DIF F NRBC# 0.00 x10'3 /uL Not Available [facility] (Lab) [address] [place], [address], 10/16/2023 13:12:37 10/16/19 24 10/16/2023 COMPR EHENS CHAU METAB OLIC PANEL sodium 137 mmol/ L 137-14 5 Not Available [facility] (Lab) [address] [place], [address], 10/16/2023 13:35:13 10/16/19 24 10/16/2023 COMPR EHENS CHAU METAB OLIC PANEL potassium 4.6 mmol/ L 3.5-5. 1 Not Available [facility] (Lab) [address] [place], [address], 10/16/2023 13:35:13 10/16/19 24 10/16/2023 COMPR EHENS CHAU METAB OLIC PANEL chloride 105 mmol/ L 98-107 Not Available [facility] (Lab) [address] [place], [address], 10/16/2023 13:35:13 10/16/19 24 10/16/2023 COMPR EHENS CHAU METAB OLIC PANEL carbon dioxide 27 mmol/ L 22-30 Not Available [facility] (Lab) [address] [place], [address], 10/16/2023 13:35:13 10/16/19 24 10/16/2023 COMPR EHENS CHAU METAB OLIC PANEL anion gap 9.6 mmol/ L 14-22 low Not Available [facility] (Lab) [address] [place], [address], 10/16/2023 13:35:13 10/16/19 24 10/16/2023 COMPR EHENS CHAU METAB OLIC PANEL glucose 135 mg/dL 70-99 high Not Available [facility] (Lab) [address] [place], [address], 10/16/2023 13:35:13 10/16/19 24 10/16/2023 COMPR EHENS CHAU METAB OLIC PANEL BUN 16 mg/dL 8-19 Not Available [facility] (Lab) [address] [place], [address], 10/16/2023 13:35:13 10/16/19 24 10/16/2023 COMPR EHENS CHAU METAB OLIC PANEL creatinine 0.65 mg/dL 0.66-1 .25 low Not Available [facility] (Lab) [address] [place], [address], 10/16/2023 13:35:13 10/16/19 24 10/16/2023 COMPR EHENS CHAU METAB OLIC PANEL GFR >60 Refer ence Range : Sublette ge GFR Healt hy Adult : >60 [...] or ethni c subgr oups, such as [facility] nics. Outsi de the valid ated [...] calcu lator is avail able on the [facility] websi te: https ://nela w.samuel costello.o rg/pr ofess ional s/kdo qi/gf r_cal culat or Not Available [facility] (Lab) [address] [place], [address], 10/16/2023 13:35:13 10/16/19 24 10/16/2023 COMPR EHENS CHAU METAB OLIC PANEL alkaline phosphatase 92 U/L 38-126 Not Available [facility] (Lab) [address] [place], [address], 10/16/2023 13:35:13 10/16/19 24 10/16/2023 COMPR EHENS CHAU METAB OLIC PANEL alanine aminotransfe rase 29 U/L 0-35 Not Available [facility] (Lab) [address] [place], [address], 10/16/2023 13:35:13 10/16/19 24 10/16/2023 COMPR EHENS CHAU METAB OLIC PANEL aspartate aminotransfe rase 25 U/L 15-37 Not Available [facility] (Lab) [address] [place], [address], 10/16/2023 13:35:13 10/16/19 24 10/16/2023 COMPR EHENS CHAU METAB OLIC PANEL bilirubin, total 0.70 mg/dL 0.20-1 .30 Not Available [facility] (Lab) [address] [place], [address], 10/16/2023 13:35:13 10/16/19 24 10/16/2023 COMPR EHENS CHAU METAB OLIC PANEL calcium 10.8 mg/dL 8.4-10 .2 high Not Available [facility] (Lab) [address] [place], [address], 10/16/2023 13:35:13 10/16/19 24 10/16/2023 COMPR EHENS CHAU METAB OLIC PANEL total protein 7.6 g/dL 6.3-8. 2 Not Available [facility] (Lab) [address] [place], [address], 10/16/2023 13:35:13 10/16/19 24 10/16/2023 COMPR EHENS CHAU METAB OLIC PANEL albumin 4.5 g/dL 3.0-4. 4 high Not Available [facility] (Lab) [address] [place], [address], 10/16/2023 13:35:13 10/16/19 24 10/16/2023 COMPR EHENS CHAU METAB OLIC PANEL globulin 3.1 g/dL 2.6-4. 2 Not Available [facility] (Lab) [address] [place], [address], 10/16/2023 13:35:13 10/16/19 24 10/16/2023 COMPR EHENS CHAU METAB OLIC PANEL A/G ratio 1.5 ratio 1.0-2. 0 Not Available [facility] (Lab) [address] [place], [address], 10/16/2023 13:35:13 10/16/19 24 10/16/2023 LIPID PANEL cholesterol 201 mg/dL 140-19 9 high NIH MATEUS NSUS RECOM MENDA TION FOR SAEED STERO L: ADULT CHILD LOW RISK: <200 <170 BORDE RLINE : <200- 239 ----- HIGH RISK: >240 >200 Not Available [facility] (Lab) [address] [place], [address], 10/16/2023 13:35:43 10/16/19 24 10/16/2023 LIPID PANEL triglyceride s 189 mg/dL 0-150 high NIH MATEUS NSUS REPOR T RECOM MENDA TION FOR TRIGL YCERI DAVID: ADULT CHILD LOW RISK: <150 ----- BODER LINE: 150-1 99 ----- HIGH RISK: >200 ----- Not Available [facility] (Lab) [address] [place], [address], 10/16/2023 13:35:43 10/16/19 24 10/16/2023 LIPID PANEL HDL cholesterol 43 mg/dL 40- Not Available [facility] (Lab) [address] [place], [address], 10/16/2023 13:35:43 10/16/19 24 10/16/2023 LIPID PANEL [...] WILL NOT BE REPOR MIHIR. Not Available [facility] (Lab) [address] [place], [address], 10/16/2023 13:35:43 10/16/19 24 10/16/2023 T4 FREE free T4 1.64 NG/dL 0.78-2 .19 Not Available [facility] (Lab) [address] [place], [address], 10/16/2023 13:39:42 10/16/19 24 10/16/2023 TSH thyroid-stim ulating hormone 3.940 uIU/m L 0.465- 4.680 Not Available [facility] (Lab) [address] [place], [address], 10/16/2023 13:53:31 10/16/19 24 10/16/2023 HEMOG LOBIN A1C HA1C 6.0 % 4.0-6. 0 Diabe shaun Scree efren Crite len: <5.7% Consi stent with absen ce of diabe shaun 5.7-6 .4% Consi stent with incre ased risk for diabe shaun (pred iabet es) >OR=6 .5% Consi stent with diabe shaun REFER ENCE: Diabe shaun Care 2016, 39( ppl.1 ):s13 -s22 Not Available [facility] (Lab) [address] [place], [address], 10/16/2023 16:10:26 10/16/19 24 10/16/2023 MICRO ALBUM IN RANDO M URINE microalbumin , urine 10.9 mg/L 0.0-16 .6 Not Available [facility] (Lab) [address] [place], [address], 10/16/2023 18:01:47 10/16/19 24 10/16/2023 VITAM IN D 25-HY DROXY [id number] 21.1 NG/mL 30-100 low Vitam in D Statu s: Defic ient: <20 ng/mL Insuf ficie nt: 20-29 ng/mL Suffi cient : 30-10 0 ng/mL Not Available [facility] (Lab) [address] [place], [address], 10/16/2023 22:36:15 12/17/19 23 12/16/2022 NM, parat hyroi d scan No observ ation record ed. [email or web address] [address] [facility], [place], [address], 09/08/2023 15:47:35 03/21/19 24 03/21/2023 US, echoc ardio gram No observ ation record ed. [address] [facility] [address], [place], [address], 10/16/2023 18:16:08 07/07/19 24 07/07/2023 CT, angio gram, head + neck, w/wo contr ast No observ ation record ed. [email or web address] [address], [place], [address], 10/18/2023 11:53:31 08/21/19 24 MAMMO , scree efren, digit al, bilat eral [facility] [address] [place] [address] [phone] Patien t Name: HOA MART Access ion #: [id number] Sex: F : 1945 1 Dictat ed By: Trixie Hernandez Attend ing Physic tamiko: MORENA ABDUL Orderi ng Physic tamiko: VINICIUSMORENA GALVEZ Exam Date: 2023 10:50 AM Exam Name: [...] at 2023 12:04: 28 PM Page 1 [email or web address] [facility] (Imaging) [address] [place], [address], 09/08/2023 15:47:35 10/30/19 24 10/30/2023 CT, angio gram, chest + abdom en + pelvi s, w/ contr ast No observ ation record ed. [email or web address] [facility] [address] [place], [address], 02/05/2024 14:19:23 05/07/19 25 05/06/2024 US, thyro id No observ ation record ed. [address], [place], [address], 05/06/2024 17:41:50 Result Notes None recorded. Problems Name Problem SNOMED Code Status Onset Date Resolution Date Notes Provider Name and Address Organization Details Recorded Time Non-alcoh olic fatty liver 727096518 Active 2021 Not Available [facility] 3 08:15:39 Hypolipid emia 015760285 Completed 201702/20/2017 Not Available [facility] 3 06:02:36 Vitamin D deficienc y 35542102 Active 2021 Not Available [facility] 3 08:15:39 Iron deficienc y 39154465 Active 2017 Not Available [facility] 3 08:15:39 Hypertens chau disorder 26441391 Active 2017 Not Available [facility] 3 08:15:39 Vertigo 462378963 Active 2021 Not Available [facility] 3 08:15:39 Hypothyro idism 05928714 Active 2017 Not Available [facility] 3 08:15:39 Aneurysm of thoracic aorta 825234926 Active 2021 Not Available [facility] 3 08:15:39 Hip pain 82076922 Active Not Available [facility] 3 08:15:39 Hyperlipi demia 79390302 Active 2017 Not Available [facility] 3 08:15:39 Dyspnea on exertion 95684557 Active 2022 Not Available [facility] 3 08:15:39 Hydrouret er 21886188 Active 2021 [facility] Available [facility] 3 08:15:39 Liver enzymes level above reference range 723922360 Active 2021 Not Available [facility] 3 08:15:39 Chronic kidney disease 786593895 Active 2021 Not Available [facility] 3 08:15:39 Sleep apnea 57273912 Active 2022 Not Available [facility] 3 08:15:39 Obstructi ve sleep apnea syndrome 23696993 Active 2022 Not Available [facility] 3 08:15:39 Hyperglyc emia 64547145 Active 2021 Not Available [facility] 3 08:15:39 COVID-19 630785192 Active 2021 Not Available [facility] 3 08:15:39 Pulmonary emphysema 68738528 Active 2021 [facility] Available [facility] 3 08:15:39 Secondary pulmonary hypertens ion 00877466 Active 2022 Not Available [facility] 3 08:15:39 Hypoxia 547865190 Active 2022 Not Available [facility] 3 08:15:39 Alpha-1-a ntitrypsi n deficienc y 66188579 Active 2022 Not Available [facility] 3 08:15:39 Anemia 187929412 Active 2022 Not Available [facility] 3 08:15:39 Essential hypertens ion 42810320 Active 2022 Not Available [facility] 3 08:15:39 Chronic obstructi ve pulmonary disease 30424976 Active 2022 Not Available [facility] 3 08:15:39 Skin lesion 90279924 Active 2022 Not Available [facility] 3 08:15:39 Increased liver function 02713683 Active 2022 Not Available [facility] 3 08:15:39 Type 2 diabetes mellitus without complicat ion 761498208 Active 2022 Not Available [facility] 3 08:15:39 Asthma 126478034 Active 2022 Not Available [facility] 3 08:15:39 Hypercalc emia 68709855 Active 2022 Not Available [facility] 3 08:15:39 Cobalamin deficienc y 618954553 Active 2022 [facility] 3 15:52:24 Bleeding from nose 001560338 Active 2023 Sanjuanita talamantes MD [address], [place] [address], [place], [address] , [facility] [employer] [facility] 4 10:53:56 Pain in right hip joint 16611772942 9102 Active 2023 Sanjuanita talamantes MD [address], [place] [address], [place], [address] , [facility] [employer] [facility] 4 11:25:29 Moderate recurrent major depressio n 24709041 Active 2023 Sanjuanita talamantes MD [address] [place] [address], [place], [address] , [facility] [employer] [facility] 4 11:26:04 Notes:[facility] home sleep study 03/15/22 AHI = 4 [facility] diagnostic sleep study 06/29/22 AHI = 9, [...] and Address Organization Details Recorded Time 07/19/19 Medicare Wellness CPT Code, subsequent completed Deven Stacy LPN [facility] [employer] [facility] 07/17/2023 18:32:38 07/19/19 24 Advanced Care Planning completed Deven Stacy LPN [facility] [employer] [facility] 07/19/2023 11:12:06 04/28/19 23 Medicare Wellness CPT Code, subsequent completed Adele Valencia RN [facility] [employer] [facility] 04/27/2022 11:20:50 04/28/19 23 Advanced Care Planning completed Adele Valencia RN [facility] [employer] [facility] 04/27/2022 11:23:21 01/01/20 20 excision of skin carcinoma completed Not Available [facility] 04/06/2022 05:56:38 10/22/19 17 Ther radiology tx plng smpl completed Not Available [facility] 04/06/2022 05:56:38 09/18/19 13 Stent placemt retro carotid completed Not Available [facility] 04/06/2022 05:56:38 02/17/19 11 Cholecystectomy completed Not Available [facility] 04/06/2022 05:56:38 Nipple/areola reconstruction completed Not Available [facility] 04/06/2022 05:56:38 excision of skin carcinoma completed Not Available [facility] 04/06/2022 05:56:38 Skin Graft completed Not Available [facility] 04/06/2022 05:56:38 Colonoscopy completed Not Available [facility] 04/06/2022 05:56:38 Hysterectomy completed Not Available [facility] 04/06/2022 05:56:38 Appendectomy completed Not Available [facility] 04/06/2022 05:56:38 EGD completed Not Available [facility] 04/06/2022 05:56:38 Imaging Results Imaging Date Name Status LastModified by Organization Details LastModified Time 12/16/2022 NM, parathyroid scan completed [address] [place] [address], [address], 09/08/2023 15:47:35 03/21/2023 US, echocardiogram completed [address] [facility] [address], [place], [address], 10/16/2023 18:16:08 07/07/2023 CT, angiogram, head + neck, w/wo contrast completed [address] [place] [address], [address], 10/18/2023 11:53:31 08/21/2023 MAMMO, screening, digital, bilateral completed [address] (Imaging) [address] [place], [address], 09/08/2023 15:47:35 10/30/2023 CT, angiogram, chest + abdomen + pelvis, w/ contrast active [email or web address] [facility] [address], [place], [address], 02/05/2024 14:19:23 05/06/2024 US, thyroid active [facility] [address] [facility] [address], [place], [address], 05/06/2024 17:41:50 Procedure Notes None recorded. Medical Equipment None Reported. Allergies Allergen ID Allergen Name Allergen Category Reaction Reaction Severity Criticality Documentation Date Start Date Code Code System Note Provider Name and Address Organization Details Recorded Time 89249 Non-stero idal anti-infl ammatory agent (product) medicatio n nausea severe Not available 04/06/2022 72942 005 SNOMED Not Available [facility] 3 06:09:23 09360 Demerol medicatio n hallucina tions Not available Not available 04/06/2022 99352 1 RxNorm Not Available [facility] 3 06:09:23 26302 codeine medicatio n itching Not available Not available 04/06/2022 2670 RxNorm Not Available [facility] 3 06:09:23 Medications Name Sig Start Date [...] pitavast atin. Valid: 05/02/23 until futher notice. NJ# [id number] 335. Not Available Not Available Not Available [...] Updated DateTime 3 157.48 cm 33.3 kg/m2 15835.8 1 g 97.2 [degF] 64 /min 94 % 94 % 112 mm[Hg] 70 mm[Hg] Pavithra Vamsi [facility] [employer] [facility] 3 09:48:58 Date Recorded Body height Body mass index (BMI) Body weight Body temperature Heart rate Systolic blood pressure Diastolic blood pressure Provider Name and Address Organization Details Last Updated DateTime 3 157.48 cm 33.5 kg/m2 78432.4 g 97.7 [degF] 84 /min 120 mm[Hg] 72 mm[Hg] Rain Gill Mahi [facility] [employer] [facility] 3 10:18:07 Date Recorded Body height Body mass index (BMI) Body weight Body temperature Heart rate Systolic blood pressure Diastolic blood pressure Provider Name and Address Organization Details Last Updated DateTime 4 157.48 cm 33.7 kg/m2 33642 g 97.2 [degF] 72 /min 124 mm[Hg] 80 mm[Hg] Rain Gill Mahi [facility] [employer] [facility] 4 09:47:31 Date Recorded Body height Body mass index (BMI) Body weight Body temperature Systolic blood pressure Diastolic blood pressure Provider Name and Address Organization Details Last Updated DateTime 4 157.48 cm 34.4 kg/m2 75825.3 7 g 97.2 [degF] 126 mm[Hg] 78 mm[Hg] Rain Gill Mahi [facility] [employer] [facility] 4 10:42:51 Date Recorded Pain severity - 0-10 verbal numeric rating [Score] - Reported Provider Name and Address Organization Details Last Updated DateTime 07/19/2023 0 Deven Stacy LPN [facility] [employer] [facility] 07/19/2023 11:08:25 Date Recorded Body height Body mass index (BMI) Body weight Body temperature Heart rate Oxygen saturation Oxygen saturation in Arterial blood by Pulse oximetry Pain severity - 0-10 verbal numeric rating [Score] - Reported Systolic blood pressure Diastolic blood pressure Provider Name and Address Organization Details Last Updated DateTime 4 157.48 cm 34.4 kg/m2 51332.3 7 g 97.8 [degF] 82 /min 91 % 91 % 0 142 mm[Hg] 80 mm[Hg] Deven Stacy LPN [facility] [employer] 4 10:37:44 Social History Question Answer Notes LastModified by Organization Details LastModified Time Tobacco Smoking Status Former Smoker Not Available [facility] 04/06/2022 05:54:10 Do You Have An Advance Directive? No Information Provided Information not available 04/27/2022 What Is Your Level Of Alcohol Consumption? None MIGRATION.546 [id number] Information not available 04/06/2022 Are You Blind Or Do You Have Difficulty Seeing? No MIGRATION.131 [id number] Information not available 04/06/2022 Is Blood Transfusion Acceptable In An Emergency? Yes [email or web address] Information not available 07/19/2023 What Is Your Level Of Caffeine Consumption? Moderate MIGRATION.909 [id number] Information not available 04/06/2022 In The 14 Days Before Symptom Onset, Have You Had Close Contact With A Laboratory-conf irmed COVID-19 While That Case Was Ill? No MIGRATION.415 [id number] Information not available 04/06/2022 In The 14 Days Before Symptom Onset, Have You Had Close Contact With A Person Who Is Under Investigation For COVID-19 While That Person Was Ill? No MIGRATION.320 [id number] Information not available 04/06/2022 Are You Currently Employed? No Retired Information not available 07/19/2023 Are You Deaf Or Do You Have Serious Difficulty Hearing? No MIGRATION.164 [id number] Information not available 04/06/2022 What Type Of Diet Are You Following? DIABETIC Information not available 04/27/2022 What Is The Highest Grade Or Level Of School You Have Completed Or The Highest Degree You Have Received? [id number] MIGRATION.736 [id number] Information not available 04/06/2022 Have There Been Any Changes To Your Family Or Social Situation? No MIGRATION.836 [id number] Information not available 04/06/2022 What Is The Fluoride Status Of Your Home? Fluoridated MIGRATION.360 [id number] Information not available 04/06/2022 When Did You Quit Smoking? 1-5yearssincelastc igarette 03/09/21 MIGRATION.991 [id number] Information not available 04/06/2022 Are There Any Guns Present In Your Home? No MIGRATION.070 [id number] Information not available 04/06/2022 Do You Use Insect Repellent Routinely? No MIGRATION.771 [id number] Information not available 04/06/2022 Where Do You Live? SingleLevelHouse MIGRATION.587 [id number] Information not available 04/06/2022 Presence Of Domestic [...] Do You Have A Medical Power Of Jig And Fixture Maker? No MIGRATION.380 [id number] Information not available 04/06/2022 What Was The Date Of Your Most Recent Tobacco Screening? 07/19/2023 [email or web address] Information not available 07/19/2023 Do You Have Any Pets? No MIGRATION.243 [id number] Information not available 04/06/2022 What Is Your Relationship Status? MIGRATION.390 [id number] Information not available 04/06/2022 Do You Use Your Seat Belt Or Car Seat Routinely? Yes MIGRATION.729 [id number] Information not available 04/06/2022 Do You Have Smoke And Carbon Monoxide Detectors In Your Home? Yes MIGRATION.117 [id number] Information not available 04/06/2022 At What Age Did You Start Smoking Tobacco? 26 MIGRATION.970 [id number] Information not available 04/06/2022 Are You Passively Exposed To Smoke? No MIGRATION.801 [id number] Information not available 04/06/2022 Are There Any Smokers In Your House? No MIGRATION.084 [id number] Information not available 04/06/2022 Do You Feel Stressed (tense, Restless, Nervous, Or Anxious, Or Unable To Sleep At Night)? [id number] MIGRATION.980 [id number] Information not available 04/06/2022 Do You Use Any Illicit Or Recreational Drugs? No MIGRATION.389 4717103 Information not available 04/06/2022 Do You Use Sunscreen Routinely? No MIGRATION.943 [id number] Information not available 04/06/2022 Has Tobacco Cessation Counseling Been Provided? No MIGRATION.996 [id number] Information not available 04/06/2022 How Many Years Have You Smoked Tobacco? 50 MIGRATION.855 [id number] Information not available 04/06/2022 Have You Recently Traveled Abroad? No MIGRATION.362 [id number] Information not available 04/06/2022 Do You Have Any Dietary Restrictions? No MIGRATION.080 [id number] Information not available 04/06/2022 Do You Or Have You Ever Used Any Other Forms Of Tobacco Or Nicotine? No MIGRATION.838 [id number] Information not available 04/06/2022 Sex: Female Functional Status Question Answer Note LastModified by Organizat ion Details LastModified Time Do you have difficulty walking or climbing stairs? Yes MIGRATION.[id number] 026 Information not available 04/06/2022 Do you have transportation difficulties? No MIGRATION.3247298 026 Information not available 04/06/2022 Are you able to walk? YESWOREST MIGRATION.3455287 026 Information not available 04/06/2022 Do you have difficulty doing errands alone? No MIGRATION.7072383 026 Information not available 04/06/2022 Are you able to care for yourself? Yes MIGRATION.[id number] 026 Information not available 04/06/2022 Do you have difficulty dressing or bathing? No MIGRATION.6399934 026 Information not available 04/06/2022 What is your exercise level? None MIGRATION.0456209 026 Information not available 04/06/2022 Mental Status Question Answer Note LastModified by Organizat ion Details LastModified Time Do you have difficulty concentrating, remembering or making decisions? No MIGRATION.[id number] 6 Information not available 04/06/2022 Family History Relationship Description Onset Age of this Age Resolved Age Notes LastModified by Organization Details LastModified Time Brother Aneurysm MIGRATION.041 [id number] Not available 04/06/2022 05:56:39 Brother Carcinoma of prostate MIGRATION.805 [id number] Not available 04/06/2022 05:56:39 Father Carcinoma of prostate MIGRATION.483 [id number] Not available 04/06/2022 05:56:39 Sister Hodgkin's disease (clinical) MIGRATION.760 [id number] Not available 04/06/2022 05:56:39 Mother Well adult MIGRATION.139 [id number] Not available 04/06/2022 05:56:40 Medical History Condition [...] Time Influenza, high-dose, quadrivalent, PF 3 completed Tavo Mittal RMA null, [facility] 12/01/2022 15:53:55 Influenza, high-dose, quadrivalent, PF 0 completed WINSTON WilkinsA null, [facility] 09/21/2023 15:05:54 COVID-19, mRNA, LNP-S, PF, 30 mcg/0.3 mL dose 1 completed Rain Gill RMA null, [facility] 09/21/2023 15:05:54 COVID-19, mRNA, LNP-S, PF, 30 mcg/0.3 mL dose 1 completed Rain Gill RMA null, [facility] 09/21/2023 15:05:54 COVID-19, mRNA, LNP-S, PF, 30 mcg/0.3 mL dose, talia-sucrose 2 completed Rain Gill RMA xin, [facility] 09/21/2023 15:05:54 pneumococcal polysaccharide PPV23 6 completed Rain Gill RMA null, [facility] 09/21/2023 15:05:54 Tdap 3 completed Rain Gill RMA null, [facility] 09/21/2023 15:05:54 Influenza, high-dose, trivalent, PF 6 completed Rain Gill RMA null, [facility] 09/21/2023 15:05:54 Influenza, high-dose, trivalent, PF 9 completed Rain Gill RMA null, [facility] 09/21/2023 15:05:54 Influenza, high-dose, trivalent, PF 8 completed Rain Gill RMA null, [facility] 09/21/2023 15:05:54 Influenza, high-dose, trivalent, PF 7 completed Rain Gill RMA null, [facility] 09/21/2023 15:05:54 Influenza, split virus, trivalent, preservative 3 completed Rain Gill RMA null, [facility] 09/21/2023 15:05:54 Influenza, split virus, trivalent, preservative 5 completed Rain Gill RMA null, [facility] 09/21/2023 15:05:54 Influenza, split virus, quadrivalent, PF 1 completed Rain Gill RMA xin, [facility] 09/21/2023 15:05:54 RSV, recombinant, protein subunit RSVpreF, adjuvant reconstituted, 0.5 mL, PF 4 completed Rain Gill RMA xin, [facility] 09/21/2023 15:06:18 COVID-19, mRNA, LNP-S, PF, 100 mcg/0.5mL dose or 50 mcg/0.25mL dose 1 completed Rain Gill RMA null, [facility] 09/21/2023 15:05:54 COVID-19, mRNA, LNP-S, PF, 100 mcg/0.5mL dose or 50 mcg/0.25mL dose 1 completed Rain Gill RMA xin, [facility] 09/21/2023 15:05:54 Influenza, high-dose, trivalent, PF 9 completed Rain Gill RMA null, [facility] 09/21/2023 15:05:54 influenza, unspecified formulation 8 completed Not Available [facility] 08/22/2022 08:15:40 Influenza, high-dose, quadrivalent, PF 1 completed [facility] 15:05:54 Influenza, high-dose, trivalent, PF 0 completed Rain Gill RMA null, [facility] 09/21/2023 15:05:54 influenza, unspecified formulation 7 completed Not Available [facility] 08/22/2022 08:15:40 pneumococcal polysaccharide PPV23 7 completed Not Available [facility] 08/22/2022 08:15:40 Pneumococcal conjugate PCV 13 6 completed Not Available [facility] 08/22/2022 08:15:40 Influenza, high-dose, quadrivalent, PF 2 completed Not Available [facility] 08/22/2022 08:15:40 Past Encounters Encounter ID Performer Location Encounter Start Date Encounter Closed Date Diagnosis/Indication Diagnosis SNOMED-CT Code Diagnosis ICD10 Code Diagnosis Note [id number] [facility] [place] [address] [address] [place] [address] 10/21/2020 00:00:00 10/21/2020 12:03:09 [id number] [facility] [place] [address] , [place] [address] 04/19/2021 00:00:00 04/19/2021 10:34:18 [id number] [facility] [place] [address] [place] [address] y , [place] [address] 05/19/2021 00:00:00 05/19/2021 12:09:16 [id number] [facility] [place] [address] [place] [address] y , [place] [address] 09/22/2021 00:00:00 09/22/2021 12:42:46 [id number] [facility] [place] [address] [place] [address] y , [place] [address] 01/05/2022 00:00:00 01/05/2022 12:59:39 [id number] [facility] [address] [place] [address] 03/08/2022 00:00:00 03/08/2022 19:20:14 [id number] JACQUELYN Davis [facility] [place] [address] [place] [address] 04/20/2022 12:17:43 04/21/2022 08:51:46 Pulmonary emphysema 17238128 J43.[address] chest completed 01/2022FIN DINGS:No [...] IGGs, Quantifero n GOLD all normal Hypoxia 836194512 R09.02 Per home sleep studySix minute walk normal Sleep apnea 62388192 G47 .30 Home study with AHI 4Severe desaturati ons, 417 minutes with saturation s below 89%Check in lab study Alpha-1-an titrypsin deficiency 77180300 E88.01 Alpha1 MZ with level of 83Extensiv [...] levels in 3 months Secondary pulmonary hypertension 30336029 I27.21 PFT normalHypo ivan during home sleep studyOrder for in lab study as above [id number] Sanjuanita talamantes MD [facility] [address] [place] [address] 04/27/2022 10:45:50 04/27/2022 11:52:52 Adult health examination 093258858 Z00.00 Screening for disorder 777020097 Z13.9 Screening - NAD 16855483 3 Z13.9 C-scope: Dr Judith waterman 10/02/17: [...] ing of the above Screening mammography 24 684470 Z12.31 Screening for osteoporosis 113858537 Z13.820 Vitamin D deficiency 347 43349 E55.9 Get on vit d weekly Hypothyroidism 75991495 E03.9 On euthyrox 137mcgs dailyDoes well Get labs Anemia 672299868 D64.[address] Alvarenga Essential hypertension 28294006 I10 On coreg 6.25mg dailyOn HCTZ 12.5mg daily Does wellGet labsShe did see Dr Martell [facility] Hyperlipidemia 20978759 E78.5 On ASAOn simvastati n 40mg daily Does well Get labs Chronic ob structive pulmonary disease 71451672 J44.9 Sees Joleen Gambino NPNow to get a in lab sleep study as per her history Hyperglycemia 47009959 R 73.9 On metformin 500mg po bidNeeds to diet and exerciseNe eds to do labs and see eye and foot Increased liver function 17356199 R94.5 US liver 12/27/21CT A/P 01/13/2022 CMP: LFTs WNL 04/18/2022 Should see GI hepatology , states that she did not do this the last time as she did not have the ride Hydroureter 48500290 N13 .4 S/p CT A/P 01/13/2022 Pulmonary emphysema 8743 3001 J43.9 Joleen Gambino [employer] 04/20/2022 , next apt 07/20/2022 Aneurysm o f thoracic aorta 362594230 I71.[address] Martell [facility], as per note 04/27/2022 , TAA is 4.2cm, f/u in 6 months [id number] Joleen Maki, LEARNING FACILITATOR-BC [facility] [place] [address] [place] [address] 07/20/2022 10:52:59 07/20/2022 11:49:23 Obstructive sleep apnea syndrome 34772483 G47.33 In lab study with AHI 9, [...] s for use, instructed on technique Hypoxia 081282959 R09.02 Per sleep studySix minute walk normalPAP as above Alpha-1-an titrypsin deficiency 93414009 E88.01 Alpha1 MZ with level of 83Extensiv [...] recheck in 6 months Secondary pulmonary hypertension 96005470 I27.21 PFT normalHypo ivan during in lab study and +OSATreatm ent as above Asthma 043639950 J45.90 9 PFT normalMeth acholine challenge positiveRA ST with several positivesI GE, IGGs, Quantifero n GOLD all normalDecl yenny maintenanc e medication [id number] Sanjuanita talamantes MD [facility] Internal Med [place] [address] [facility] [place] [address] 08/17/2022 10:08:33 08/17/2022 10:55:17 Screening - NAD 756847787 Z13.9 C-scope: Dr Judith waterman 10/02/17: Next [...] of the above Vitamin D deficiency 347 05647 E55.9 Get on vit d weekly Hypothyroidism 61168084 E03.9 On euthyrox 137mcgs dailyDoes well Get labs Anemia 732571698 D64.[address] Alvarenga Essential hypertension 18518164 I10 On coreg 6.25mg dailyOn HCTZ 12.5mg daily Does wellGet labsShe did see Dr Martell [facility] Hyperlipidemia 36289752 E78.5 On ASAOn simvastati n 40mg daily Does wellGet labs Chronic ob structive pulmonary disease 13120705 J44.9 Sees Joleen Gambino NPNow to get a in lab sleep study as per her history Hyperglycemia 29448585 R 73.9 On metformin 500mg po bidNeeds to diet and exerciseNe eds to do labs and see eye and foot Increased liver function 79447198 R94.5 US liver 12/27/21CT A/P 01/13/2022 CMP: LFTs WNL 04/18/2022 Should see GI hepatology , states that she did not do this the last time as she did not have the ride Hydroureter 95171286 N13 .4 S/p CT A/P 01/13/2022 Pulmonary emphysema 8743 3001 J43.9 Joleen Gambino [employer] Aneurysm o f thoracic aorta 106834321 I71.[address] Martell [facility], as per note 04/27/2022 , TAA is 4.2cm, f/u in 6 months Hypercalcemia 11013832 E 83.52 Will repeat the labs, declines any referrals, very mild corrected [id number] Joleen Gambino, LEARNING FACILITATOR-BC [facility] [place] [address] [place] [address] 09/14/2022 10:06:30 09/14/2022 10:54:21 Obstructive sleep apnea syndrome 85311577 G47.33 In lab study with AHI 9, [...] 30 days use, PRN for concerns Asthma 214743131 J45.90 9 PFT normalMeth acholine challenge positiveRA ST with several positivesI GE, IGGs, Quantifero n GOLD all normalDecl yenny maintenanc e medication Alpha-1-an titrypsin deficiency 31281641 E88.01 Alpha1 MZ with level of 83Extensiv [...] level 84 - recheck in 6 months [id number] Joleen Gambino, [facility] Pulmonolo gy [place] [address] [place] [address] 11/08/2022 09:23:22 11/08/2022 11:09:57 Obstructive sleep apnea syndrome 65778806 G47.33 In lab study with AHI 9, [...] least 4 hours prior to bedtime. Asthma 874396608 J45.90 9 PFT 04/2022 normalMeth acholine challenge 05/[address] with several positivesI GE, IGGs, Quantifero n GOLD all normalDecl yenny maintenanc e medication Will send for symbicort for rescue use as per new guidelines Alpha-1-an titrypsin deficiency 69606234 E88.01 Alpha1 MZ with level of 83Extensiv [...] has been seen in MZ population s. [id number] Sanjuanita talamantes MD [facility] [place] [address] [place] [address] 11/23/2022 10:07:16 11/23/2022 11:43:21 Screening - NAD 625594007 Z13.9 C-scope: Dr Judith waterman 10/02/17: Next [...] of the above Vitamin D deficiency 347 26102 E55.9 Get on vit d weekly Hypothyroidism 61400427 E03.9 On euthyrox 137mcgs dailyDoes well Get labs Anemia 251493850 D64.9 Does well Did see Dr Alvarenga Essential hypertension 23255440 I10 On coreg 6.25mg dailyOn HCTZ 12.5mg daily Does wellGet labsShe did see Dr Jasbir CASIANO Hyperlipidemia 17827911 E78.5 On ASAOn simvastati n 40mg daily Does wellGet labs Chronic ob structive pulmonary disease 72369161 J44.9 Sees Joleen Gambino NPNow to get a in lab sleep study as per her history Hyperglycemia 92640535 R 73.9 On metformin 500mg po bid Needs to diet and exerciseNe eds to do labs and see eye and foot Increased liver function 60040535 R94.5 US liver 12/27/21CT A/P 01/13/2022 CMP: LFTs WNL 04/18/2022 Should see GI hepatology , states that she did not do this the last time as she did not have the ride Hydroureter 37555592 N13 .4 S/p CT A/P 01/13/2022 Pulmonary emphysema 8743 3001 J43.9 Joleen Gambino [employer], 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 Aneurysm o f thoracic aorta 488852741 I71.[address] Martell [facility], as per note 04/27/2022 , TAA is 4.2cm, f/u in 6 months Hypercalcemia 50207575 E 83.[address] Duran, may need to see ENT also [id number] Sanjuanita talamantes MD [facility] [place] [address] [place] [address] 03/22/2023 09:38:27 03/22/2023 10:02:07 Screening - NAD 667106046 Z13.9 C-scope: Dr Judith waterman 10/02/17: Next 5-10 years09/10: Dr Fredrickso n EGD and c-scope Mammogram: 09/19/17: NegMammogr am: [...] of the above Vitamin D deficiency 347 91276 E55.9 Repeat the vit d level Hypothyroidism 16427878 E03.9 On euthyrox 137mcgs dailyDoes well Get labs Anemia 009980552 D64.9 Does well Did see Dr Alvarenga Essential hypertension 88492352 I10 On coreg 6.25mg dailyOn HCTZ 12.5mg daily Does wellGet labsShe did see Dr Martell [facility] Hyperlipidemia 06731574 E78.5 On ASANot on simvastati n 40mg dailyOn atorvastat in 40mg daily Does wellGet labs Chronic ob structive pulmonary disease 97283871 J44.9 Seen Joleen Gambino NPNow to get a in lab sleep study as per her history Hyperglycemia 46733858 R 73.9 On metformin 500mg po bid Needs to diet and exerciseNe eds to do labs and see eye and foot MD Increased liver function 88274854 R94.5 US liver 12/27/21CT A/P 01/13/2022 CMP: LFTs WNL 04/18/2022 Should see GI hepatology , states that she did not do this the last time as she did not have the ride Hydroureter 95204366 N13 .4 S/p CT A/P 01/13/2022 Pulmonary emphysema 8743 3001 J43.9 Joleen Gambino [employer], 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 Aneurysm o f thoracic aorta 984421925 I71.[address] Martell [facility], as per note 04/27/2022 , TAA is 4.2cm, f/u in 6 months Hypercalcemia 06114198 E 83.52 NM parathyroi d scan 12/16/2022 Dr Duran, may need to see ENT also Screening mammography 24 637236 Z12.31 [id number] Sanjuanita talamantes MD [facility] [place] [address] [facility] [address] [facility] [place] [address] 07/19/2023 10:24:43 07/19/2023 11:24:13 Adult health examination 737915972 Z00.00 Screening for disorder 513753965 Z13.9 Screening - NAD 01335790 3 Z13.9 C-scope: Dr Judith waterman 10/02/17: [...] of the above Vitamin D deficiency 347 13374 E55.9 Repeat the vit d level Hypothyroidism 03130876 E03.9 On levothyrox ine 137mcgs daily, will increase to 150mcgs daily as TSH is elevatedGe t US thyroidDoe s well Get labs Anemia 193340669 D64.9 Does wellGet [address]Did see Dr Alvarenga Essential hypertension 08389502 I10 On coreg 6.25mg dailyOn HCTZ 12.5mg daily Does wellGet labsShe did see Dr Jasbir CASIANO Hyperlipidemia 53998798 E78.5 On ASANot on simvastati n 40mg dailyNot on atorvastat in 40mg dailyOn pitavastat in 2mg daily Does wellGet labs Chronic ob structive pulmonary disease 07727750 J44.9 Seen Joleen Gambino NPNow to get a in lab sleep study as per her history Hyperglycemia 24235432 R 73.9 On metformin 500mg po bid Needs to diet and exerciseNe eds to do labs and see eye and foot MD Increased liver function 53128940 R94.5 US liver 12/27/21CT A/P 01/13/2022 CMP: LFTs WNL 04/18/2022 Should see GI hepatology , states that she did not do this the last time as she did not have the ride Hydroureter 12196837 N13 .4 S/p CT A/P 01/13/2022 Pulmonary emphysema 8743 3001 J43.9 Joleen Gambino [employer], 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 Aneurysm o f thoracic aorta 211944930 I71.[address] Martell [facility], as per note 04/27/2022 , TAA is 4.2cm, f/u in 6 monthsDr Jasbir CASIANO 03/21/2023 , f/u in 6 months Hypercalcemia 24143478 E 83.52 NM parathyroi d scan 12/16/2022 Dr Duran, may need to see ENT also Screening mammography 24 403179 Z12.31 Bleeding from nose [address] Bayron Morin ENT 03/16/2023 CTA neck 07/07/2023 [id number] Sanjuanita talamantes MD [facility] [place] [address] [place] [address] 10/23/2023 10:26:22 10/23/2023 11:30:01 Vitamin D deficiency 48044645 E55.9 Repeat the vit d level Screening - NAD 16218483 3 Z13.9 C-scope: Dr Judith waterman 10/02/17: [...] her understand ing of the above Hypothyroidism 10187428 E03.9 On levothyrox ine 150mcgs daily, renewed 10/23/2023 with UnithroidG et US thyroidDoe s well Get labs Anemia 300046763 D64.9 Does wellGet [address]Did see Dr Alvarenga Essential hypertension 16081759 I10 On coreg 6.25mg dailyOn HCTZ 12.5mg daily Does wellGet labsShe did see Dr Martell [facility] Hyperlipidemia 63286364 E78.5 On ASANot on simvastati n 40mg dailyNot on atorvastat in 40mg dailyNot on pitavastat in 2mg dailyOn zetia 10mg daily Does wellGet labs Chronic ob structive pulmonary disease 15547882 J44.9 Seen Joleen Gambino NPNow to get a in lab sleep study as per her history Hyperglycemia 46795924 R 73.9 On metformin 500mg po bid Needs to diet and exerciseNe eds to do labs and see eye and foot Increased liver function 67628265 R94.5 US liver 12/27/21CT A/P 01/13/2022 CMP: LFTs WNL 04/18/2022 Should see GI hepatology , states that she did not do this the last time as she did not have the rideReferr ed again 10/23/2023 Hydroureter 20460379 N13 .4 S/p CT A/P 01/13/2022 Pulmonary emphysema 8743 3001 J43.9 Joleen Gambino [employer], 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 Aneurysm o f thoracic aorta 524475597 I71.[address] Jasbir MARTINS, as per note 04/27/2022 , TAA is 4.2cm, f/u in 6 monthsDr Jasbir CASIANO 03/21/2023 , f/u in 6 months, is to get CT C/A/P on 10/30/2023 Hypercalcemia 26742766 E 83.52 NM parathyroi d scan 12/16/2022 Dr Duran, may need to see ENT also, low vit d, will need to discuss with nephrology about taking vit d, she also would like a referral to endocrine, as her nephrologi st told her she need to see an endocrine MD, referred to Dr Stark Bleeding from nose [address] Bayron Morin ENT 03/16/2023 CTA neck 07/07/2023 Pain in ri ght hip joint 6317937216 35166 M25.551 States that she would like to get a referral to Dr Mehta ortho as her preferred ortho as she her lab phlebotomi st went to him Moderate r ecurrent major depression 59518444 F33.1 Feels overwhelme d with her medical [...] Alberto Member ID Guarantor Name 11/08/2022 1 [place] Jorywaylon Mart [id number] Jory Mahi Jackson 11/08/2022 2 [place] Jory Mart [id number] Jory Mahi Hess 11/23/2022 1 [place] Jory Mahi Caraballoel [id number] Jory Mahi Hess 11/23/2022 2 [place] [facility]ID Jory A Ilyael [id number] Jory A Hessel 03/22/2023 1 [place] Jory A Hessel [id number] Jory A Hessel 03/22/2023 2 [place] [facility] PUBLIC AID Jory A Hessel [id number] Jory A Hessel 07/19/2023 1 [place] Jory A Hessel [id number] Jory A Hessel 07/19/2023 2 [place] [facility]ID Jory A Hessel [id number] Jory A Hessel 10/23/2023 1 [place] Jory A Hessel [id number] Jory A Hessel 10/23/2023 2 [place] [facility] Jory A Hessel [id number] Jory A Hessronnie Notes Date Note Type Note Provider Name [...] exertionDenies significant cough and wheezing. Joleen Gambino, [facility] [address] [facility], [facility] [address], [place], [address], [place] [facility] 11/08/2022 13:57:00 11/23/2022 text/html 02/20/17Here to establish carePMD: [facility], last apt was a 'long ago'Past Hx:HTNHLDAnemiaSkin cancer L LEReviewed social family and surgical historyHere as she would adolph to discuss this today and perhaps get some labs 03/06/17:Here for her follow up Kd did do the labs on 02/25/17 OV 06/05/17:Here for her routine aptShe did do the labs and is here to review theseShcatherine feels that she is doing well at [...] 07/30/18:Here for her routine aptShe did have labsShcatherine also does not want any new referrals [...] she was seen by Dr Vazquez a micro photographer and was told to do a 'cath'She [...] the labs on 11/15/2022 Sanjuanita Bach MD [address] [place] [address], [facility] [address], [place], [address], [place] [facility] [place] [facility] 11/23/2022 11:33:51 03/22/2023 text/html 02/20/17Here to establish carePMD: In [facility], last apt was a 'long ago'Past Hx:HTNHLDAnemiaSkin [...] 07/30/18:Here for her routine aptShe did have labsShcatherine also does not want any new referrals [...] she was seen by Dr Vazquez a micro photographer and was told to do a 'cath'She [...] doing well today Sanjuanita Bach MD [address], [place], [address], [place] [facility] 03/22/2023 17:44:27 07/19/2023 text/html 02/20/17Here to establish carePMD: In [facility], last apt was a 'long ago'Past Hx:HTNHLDAnemiaSkin cancer L LEReviewed social family and surgical historyHere as she [...] she was seen by Dr Vazquez a micro photographer and was told to do a 'cath'She [...] her routine apt, she is doing well Sanjuanita Bach MD [address] [facility], [place], [address], [place] [facility] 07/24/2023 18:32:10 10/23/2023 text/html 02/20/17Here to establish carePMD: In [facility], last apt was a 'long ago'Past Hx:HTNHLDAnemiaSkin cancer L LEReviewed social family and surgical historyHere as she [...] 07/30/18:Here for her routine aptShe did have labsShcatherine also does not want any new referrals [...] she was seen by Dr Vazquez a micro photographer and was told to do a 'cath'She [...] 04/19/2021:Here for her routine aptShe is doing [place] did her labs and has an apt [...] weight gain or loss Sanjuanita Bach MD [address] [place] [address], [place] [address], [place], [address], [facility] 10/23/2023 14:46:13 OBGyn Episode No OBEpisode recorded.
--- OUTSIDE RECORDS SUMMARY | 2024-05-08 08:56 | XMS_ITS | Clinical Summary ---
Author Organization [facility] Address [address] [place] [address] Care Team Providers Care [employer] Planner Name Role Phone David Bach MD Primary [...] tablet Take 125 mcg by mouth daily paedodontist. Active simvastatin (ZOCOR) 40 mg tablet Take [...] on file Legal Sex Female 12:13 PM [employer] Gender Identity Not on file Sexual Orientation [...] Description 05/15/2024 3:30 PM CDT Office Visit [facility] [place] [address] [place] [address] [facility] [address] [place] [address] Darian Alvarenga MD [address] [facility] [address] [place] [address] Health Maintenance Due Date Last Done Comments DIABETES ANNUAL FOOT EXAM 1963 DIABETES ANNUAL RETINAL EXAM 1963 DIABETES MICROALBUMIN ANNUAL SCREEN 1963 LDL CHOLESTEROL ANNUAL 1963 Traditional Medicare (ACO) A nnual Wellness Visit 02/29/1964 Lung Cancer Screening 1995 ZOSTER VACCINE (1 of 2) 1995 RSV VACCINE (60+ or ) (1 - 1-dose 75+ series) 02/29/2020 DTAP/TDAP/TD VACCINES (2 - T d or Tdap) 10/15/2022 10/15/2012 INFLUENZA VACCINE (#1) 2023 , 01/05/2022, 01/18/2021, Additional history exists COVID-19 Vaccine (2023-2 5 season) 2023 02/23/2021, 04/27/2020, 04/25/2020, Additional history exists DIABETES HBA1C Q 6 MONTHS 04/14/20242023, 07/12/2023, 03/13/2023, Additional history exists PNEUMOCOCCAL VACCINE 50+ YEARS Completed 0 09/21/2016, 09/23/2015, 08/31/2015 FIT/FOBT Q 1 year Discontinued 06/18/2018 OSTEOPOROSIS SCREENING Completed , 05/09/2022, 09/18/2019, Additional history exists COLORECTAL SCREENING [...] CARD (06/18/2018) Stool STOOL SPECIMEN / Unknown us Darian Alvarenga MD POINT OF CARE TESTING Final Res ult [facility] Last 3 Months or Most Recently Relevant to Health Maintenance Insurance [place]ICARE PART A [place] Care Teams [employer] Planner Relationship Specialty Start Date End Date David Bach MD PCP - General Internal Medicine 01/15/18
--- OUTSIDE RECORDS SUMMARY | 2024-05-08 08:56 | XMS_ITS | CONTINUITY OF CARE DOCUMENT ---
Author Name richy lockhart Address Unknown Organization [facility] Address [address] [place] [address] Phone [phone] Care Team Providers Care Insurance Commissioner Name Role Phone Jasbir TORRES, Symone Unavailable SANJUANITA CAVANAUGH MD Unavailable AFSHAN TORRES, SANJUANITA Unavailable [phone] PROBLEMS Condition Status Date Provider Notes Thoracic aortic aneurysm, 3. 9 cm by echo 03/2023 active Symone Martell MD PALPITATIONS active Symone Martell MD SLEEP APNEA, on cpap active Damien Loving COPD ON CHEST CT active Symone Martell MD OBESITY active Symone Martell MD HTN SYSTOLIC active Symone Martlel MD ANEMIA S/P ENDOSCOPY, COLONO SCOPY DIVERICULITIS,POLYPS active Symone Martell MD TOBACCO ABUSE QUIT active Symone Martell MD CHEST PAIN NL STRESS TEST 09/17 active ? Ra Martell MD HYPOTHYROIDISM active ? Symone Martell MD ENCOUNTERS Date Type Provider Location Encounter Diag nosis - In-person encounter Office Visit Symone Martell MD [facility] SLEEP APNEA, on cpap - In-person encounter Office Visit Symone Martell MD [facility] HTN SYSTOLICThoracic aortic aneurysm, 3.9 cm by echo 03/2023 - In-person encounter Office Visit Symone Martell MD [facility] TOBACCO ABUSE QUIT - In-person encounter Office Visit Symone Martell MD [facility] Thoracic aortic aneurysm, 3.9 cm by echo 03/2023 - In-person encounter Office Visit Symone Martell MD [facility] Office PALPITATIONS - In-person encounter Office Visit Symone Martell MD [facility] - In-person encounter Office Visit Symone Martell MD [facility] - In-person encounter Office Visit Symone Martell MD [facility] HYPOTHYROIDISMCHEST PAIN NL STRESS TEST 09/17TOBACCO [...] Meredith Nilton blood pressure, cuff size regular Ma sasha Callaway height E&M 63 [in_i] Meredith Nilton Body Mass Index (Ratio) 32.77 kg/m2 Les Martell MD pulse rate 63 /min Falguni Louis oxygen saturation, oximetry 98 % Falguni Louis respiratory rate E&M 16 /min Falguni Aurelia lyle blood pressure, cuff size regular [facility] blood pressure, diastolic 77 mm[Hg] [facility] blood pressure, systolic 135 mm[Hg] [facility] Louis weight E&M 185 [lb_av] [facility] height E&M 63 [in_i] [facility] Body Mass Index (Ratio) 31.35 kg/m2 Les [...] % Rosa Grant height E&M 63 [in_i] Rosa Grant Body Mass Index (Ratio) 30.58 kg/m2 [...] Mani lonnie Mckee pulse rate 70 /min [facility] saturation, oximetry 98 % Man[place]nie [...] Means RN blood pressure, systolic 129 mm[Hg] Jesu Means RN pulse rate 67 /min Jesu [...] 10*3/mm3 Rick Garcia hematocrit, blood 37.1 % [facility] thyroid stimulating hormone, serum 4.440 u[IU]/mL [facility] Jose alanine aminotransferase (SGPT), serum 67 1/L [facility] aspartate aminotransferase (SGOT), serum 29 1/L [facility] Jose creatinine, serum 0.60 mg/dL [facility] Jose potassium, serum 4.4 mmol/L [facility] sodium, serum 141 mmol/L [facility] D-dimer quantitative mcg/mL 0.6 ug/mL [facility] lipoprotein, beta, serum, point, quantitative, calculated 116 mg/dL [facility] cholesterol, serum 168 mg/dL [facility] platelet count 335 10*3/mm3 [facility] hematocrit, blood 31.5 % [facility] creatinine, serum 0.82 mg/dL [facility] potassium, serum 4.0 mmol/L [facility] sodium, serum 140 mmol/L [facility] international normalized ratio (INR) 1.02 [facility] international normalized ratio (INR) 1.0 [facility] platelet count 412 10*3/mm3 [facility] hematocrit, blood 27.8 % [facility] D-dimer quantitative mcg/mL 0.6 ug/mL [facility] alanine aminotransferase (SGPT), serum 18 1/L [...] alcohol use, average drinks per day [facility] years or m ore [facility] smoking status Smoker [facility] MENTAL STATUS Date Observation Value Provider [...] type / Coverage type Goldy sanchez ID [facility] Medicaid 3 [id number] [place] MEDICARE Medicare [id number] ADVANCE DIRECTIVES Name Date DISCUSSED - NO DECISION MADE TREATMENT PLAN Date Name Performer [id number],Symone Biggs MD [id number],Symone Biggs MD [id number],Symone Gardner MD [id number],Symone Biggs MD [id number],Symone Gardner MD Cardiology:This visi t has been [...] (Hydrochlorothiazide) ..... 1 tablet once a day [facility]iology [facility] Cardiology: H er updated medication list for this problem includes: Carvedilol 6.25 Mg Tablet (Carvedilol) ..... 1 tablet twice a day [facility]: B P today: 135/77 P rior BP: 145/84 (09/20/2022) Labs Reviewed: C reat: 0.60 (05/10/2012) C hol: 168 (12/09/2011) LDL: 116 (12/09/2011) Her updated medication list for this problem includes: Aspirin 81 Mg Oral Tablet (Aspirin) ..... One tab. daily Carvedilol 6.25 Mg Oral Tablet (Carvedilol) ..... One tab. twice daily Hydrochlorothiazide 12.5 Mg Oral Capsule (Hydrochlorothiazide) ..... One tab. daily [facility] Cardiology: H er updated medication list for this problem includes: Levoxyl 100 Mcg Oral Tablet (Levothyroxine sodium) ..... [facility] tab. daily [facility] Symone Martell MD Cardiology Symone [...]
--- OUTSIDE RECORDS SUMMARY | 2024-05-08 08:56 | XMS_ITS | Clinical Summary ---
Author Organization [facility] [address] Address [address] [place] [address] Care Team Providers Care Net Lead Architect Name Role Phone Tu Bach MD Primary Care Provide r Allergies Active Allergy Reactions Criticality Noted Date Comments Ibuprofen Hives High 04/20/2021 Meperidine Morphine Nsaids (Non-Steroidal Anti-I nflammatory Drug) Nausea only Low Opioids-Meperidine And Related Unknown 01/19 Medications levothyroxine (SYNTHROID) 137 mcg tabletIndications: hypothyroidism Take 1 tablet (137 mcg total) by mouth every morning Active iFerex 150 150 mg iron capsule Take 1 capsule (150 mg total) by mouth 2 (two) times a day 05/21/19 22 Active hydroCHLOROthiazid e (MICROZIDE) 12.5 mg capsule Take 1 capsule (12.5 mg total) by mouth every morning 05/20/19 22 Active carvediloL (COREG) 6.25 mg tablet Take 1 tablet (6.25 mg total) by mouth 2 (two) times a day 05/21/19 22 Active sertraline (ZOLOFT) 25 mg tabletIndications: Anxiety with Depression Take 1 tablet (25 mg total) by mouth every morning 10/23/19 24 Active metFORMIN (GLUCOPHAGE) 500 mg tablet Take 1 tablet (500 mg total) by mouth 2 (two) times a day 04/11/19 23 Active ezetimibe (ZETIA) 10 mg tablet Take 1 tablet (10 mg total) by mouth nightly 08/28/19 24 Active cholecalciferol, vitamin D3, (VITAMIN D3 ORAL) Take 1,000 Units by mouth every evening Active traMADoL (ULTRAM) 50 mg tablet Take 1 tablet (50 mg total) by mouth every 6 (six) hours as needed for pain 28 tablet 01/17/20 24 Active Additional Information Patient not taking.Reported on 04/22/2024 oxyCODONE (ROXICODONE) 5 mg immediate release tabletIndications: Pain Take 1 tablet (5 mg total) by mouth every 4 (four) hours as needed for pain 40 tablet 01/17/20 Active Additional Information Patient not taking.Reported on 04/22/2024 acetaminophen 500 mg capsuleIndications :Pain Take 2 capsules (1,000 mg total) by mouth every 8 (eight) hours 90 tablet 01/19/20 Active senna-docusate (PERICOLACE) 8.6-50 mgIndications:cons tipation Take 2 tablets by mouth 2 (two) times a day 80 tablet 01/19/20 Active Additional Information Patient not taking.Reported on 04/22/2024 meloxicam (MOBIC) 7.5 mg tabletIndications: Pain Take 1 tablet (7.5 mg total) by mouth daily 30 tablet 01/19/20 Active albuterol (PROAIR RESPICLICK) 90 mcg/actuation inhalerIndications :Chronic Obstructive Pulmonary Disease Inhale 2 puffs every 6 (six) hours as needed for wheezing or shortness of breath 1 each 01/19/20 24 025 Active aspirin 81 mg enteric coated tabletIndications: Deep Vein Thrombosis Prevention Take 1 tablet (81 mg total) by mouth 2 (two) times a day 60 tablet 01/19/20 24 Active ondansetron ODT (ZOFRAN-ODT) 4 mg disintegrating tabletIndications: Prevention of Post-Operative Nausea and Vomiting Take 1 tablet (4 mg total) by mouth every 8 (eight) hours as needed for nausea or vomiting 10 tablet 01/19/[address] (PROTONIX) 20 mg EC tabletIndications: Mucositis Prophylaxis Take 1 tablet (20 mg total) by mouth daily FOR GI PROTECTION WHILE TAKING MELOXICAM 30 tablet 01/19/20 24 Active Contour Next Test Strips strip USE 1 STRIP TO CHECK GLUCOSE ONCE DAILY 03/12/19 25 Active Unithroid 150 mcg tablet Take 1 tablet (150 mcg total) by mouth daily 04/03/19 25 Active Active Problems Problem Noted Date Diagnosed Date Acute posthemorrhagic anemia 01/20/2024 Gastroesophageal reflux disease without esophagi tis 01/20/2024 Hypertensive chronic kidney disease w stg 1-4/un sp chr kdny 01/20/2024 Type 2 diabetes mellitus wit h diabetic chronic kidney disease 01/20/2024 Presence of artificial hip joint, right 01/20/20 Personal history of COVID-19 01/20/2024 Other specified chronic obstructive pulmonary di sease 01/20/2024 Obstructive sleep apnea (adult) (pediatric) 01/06 Obesity, unspecified 01/20/2024 Moderate major depression 01/20/2024 residential (current) use of oral hypoglycemic shanti gs 01/20/2024 Hypothyroidism, unspecified 01/20/2024 Chronic kidney disease, unspecified 01/20/2024 Body mass index (BMI) 32.0-32.9, adult Aftercare following joint replacement surgery Respiratory failure, post-operative 01/18/2024 Assessment & Plan (01/19/2024 1:26 PM [employer]): Occurring after R ANDREW 01/16. Pt reports similar history after previous major surgeries. -CXR showing possible pulm edema, atelectasis. -Suspect combination of atelectasis, GABE, possible pulm edema, and chronic COPD -Start lasix 20mg daily, would d/c at discharge -IS and acapella device for treatment of atelectasis. Agree with PT/OT for mobilization -Start duonebs QID for COPD -Currently weaned down to room air -No need for oxygen on 6 min walk Acute blood loss anemia 01/18/2024 Assessment & Plan (01/19/2024 1:22 PM [employer]): Pt with h/o iron deficiency, though pre-op Hgb from Nov was normal at 13.6. Post-op Hgb 9.0, indicating likely surgical blood loss. Op note indicates 150ml EBL -Repeat Hgb stable -Transfuse if Hgb<7 Osteoarthritis of right hip, unspecified osteoarthritis type 01/17/2024 Moderate recurrent major depression 10/23/2023 Epistaxis 07/19/2023 Cobalamin deficiency 10/17/2022 Hypercalcemia 08/17/2022 Asthma 07/20/2022 Type 2 diabetes mellitus without complication Assessment & Plan (01/19/2024 1:26 PM [employer]): -Hold home metformin, resume on discharge -Agree with SSI and BG monitoring. Skin lesion 04/27/2022 Dmmhk-8-nenysfersyk deficiency 04/20/2022 Hypoxia 04/20/2022 Dyspnea on exertion 03/07/2022 Obstructive sleep apnea syndrome 03/07/2022 Assessment & Plan (01/18/2024 5:38 PM [employer]): Continue to use home CPAP at night and during naps. Aneurysm of thoracic aorta 01/19/2022 Nonalcoholic fatty liver 01/19/2022 COVID-19 01/16/2022 Hydroureter 01/09/2022 Chronic kidney disease 12/15/2021 Elevated liver enzymes 12/15/2021 Hyperglycemia 12/15/2021 Vitamin D deficiency 12/15/2021 Vertigo 09/07/2021 Chest pain, unspecified 07/15/2021 Hip pain 07/15/2021 Essential (primary) hypertension 07/15/2021 Assessment & Plan (01/18/2024 5:36 PM [employer]): Agree with holding home carvedilol and HCTZ in setting of borderline BP. -Monitor BP and resume home meds in stepwise fashion Tobacco dependence syndrome 07/15/2021 Trochanteric bursitis of right hip 07/15/2021 Primary osteoarthritis of right hip 07/15/2021 Assessment & Plan (01/18/2024 5:38 PM [employer]): S/p R ANDREW, defer management to primary ortho team Right hip pain 07/15/2021 It band syndrome, right 07/15/2021 Vitamin B12 deficiency anemia 01/29/2018 Microcytic anemia 01/22/2018 Hypertensive disorder 02/20/2017 Hyperlipidemia 02/20/2017 Hypothyroidism 02/20/2017 Assessment & Plan (01/18/2024 5:37 PM [employer]): Cont synthroid Iron deficiency 02/20/2017 Palpitations 01/24/2013 Chronic obstructive pulmonary disease, unspecifi ed 11/28/2011 Assessment & Plan (01/19/2024 1:22 PM [employer]): H/o COPD as well as 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 COPD may be contributing to present hypoxia, although not currently wheezing. -Scheduled duonebs ordered QID -For home would order PRN albuterol MDI q6h PRN -Hold on steroids for now unless wheezing Anemia, unspecified 11/28/2011 Obesity 11/28/2011 Encounters Date Type Department Care Team Description 04/22/2024 11:30 AM CDT Office Visit [facility] [address] [place] [id number] Candy Wu NP Orthopedic aftercare (Primary Dx); History of total hip arthroplasty, right 04/22/2024 11:00 AM CDT - 04/22/2024 11:59 PM CDT Hospital Encounter [facility] [address] [place] [id number] Orthopedic aftercare Discharge Disposition: Discharge to home or self care from Last 3 Months Immunizations Immunization Administration Dates Next Due Influenza, Quadrivalent, Hig h Dose, Preservative Free, Intrr 12/06/2019 Influenza, Quadrivalent, Spl it, Preservative Free, Intramuscular 01/18/2021 Influenza, Trivalent, High D ose, Split, Preservative Free, Intramuscular 12/06/2019,11/15/2018,11/12/2018,11/14,11/21/2016,10/16/2015 Influenza, Trivalent, IM (MDV) 12/05/2014,2012 Influenza, Unspecified 12/27/2017,11/30/2016 Moderna SARS-CoV-2 Monovalen t Vaccination (12+ YRS) 04/27/2020,04/07/2020 Pneumococcal Conjugate PCV 13 09/23/2015 Pneumococcal Polysaccharide PPV23 09/21/2016, Tdap 10/15/2012 Surgical History Surgery Date Site/Laterality Comments SINUS SURGERY 02/06/2022 - 02/05/2023 COLONOSCOPY 02/06/2023 - 02/06/2024 BACK SURGERY x2 SKIN CANCER EXCISION Bilateral HIP SURGERY JOINT REPLACEMENT Medical History Medical History Date Comments Hypothyroidism Hypothyroidism Hx Other Medical COPD emphysemat ous Gastroesophageal reflux disease GERD Hx Other Medical Esophagitis Obesity Sleep apnea Family History Medical History Relation Name Comments Anesthesia problems Neg Hx Social History Tobacco Use Types Packs/Day Years Used Date Smoking Tobacco: Former Cigarettes 0.5 50.1 1 972 - 03/09/2021 Passive Smoke Exposure: Past Smokeless Tobacco: Never Tobacco Cessation:Counseling Given: Not Answered [facility] [employer] Answer Date Recorded In the past 12 months has e [employer], gas, oil, or water company threatened to shut off services in your home? No 01/18/2024 Social Connection and Isolat ion Panel [NHANES] Answer Date Recorded In a typical week, how many times do you talk on the phone with family, friends, or neighbors? More than three times a week 01/18/2024 How often do you get togethe r with friends or relatives? More than three times a week 01/18/2024 How often do you attend chur ch or nondenominational services? 1 to 4 times per year 01/18/2024 Do you belong to any clubs o r organizations such as judaism groups, unions, fraternal or athletic groups, or school groups? Yes 01/18/2024 How often do you attend meet ings of the clubs or organizations you belong to? Never 01/18/2024 Are you , , di vorced, , never , or living with a partner? 01/18/2024 AUDIT-C Answer Date Recorded Q1: How often do you have a drink containing alcohol? Never 01/17/2024 Q2: How many drinks containi ng alcohol do you have on a typical day when you are drinking? Patient does not drink Q3: How often do you have si x or more drinks on one occasion? Never 01/17/2024 Overall Financial Resource Strain (CARDIA) Answe r Date Recorded How hard is it for you to pa y for the very basics like food, housing, medical care, and heating? Somewhat hard 01/18/2024 Hunger Vital Sign Answer Date Recorded Within the past 12 months, y ou worried that your food would run out before you got the money to buy more. Never true 01/18/20 24 Within the past 12 months, t he food you bought just didn't last and you didn't have money to get more. Never true 01/18/2024 PRAPARE - Transportation Answer Date Re corded In the past 12 months, has l ack of transportation kept you from medical appointments or from getting medications? No 01/06 In the past 12 months, has l ack of transportation kept you from meetings, work, or from getting things needed for daily living? No 01/18/2024 Housing Stability Vital Sign Answer Artemio e Recorded In the last 12 months, was t here a time when you were not able to pay the mortgage or rent on time? No 01/18/2024 Number of Times Moved in the Last Year Not on fi le 01/18/2024 At any time in the past 12 m [facility], were you homeless or living in a residential (including now)? No 01/18/2024 Personal Safety Answer Date Recorded Have you ever been in or are you currently in a harmful physical or emotional relationship or is someone making you feel afraid or unsafe? Denies 01/17/2024 Comments No Sex and Gender Information Value Date Recorded Sex Assigned at Not on file Legal Sex Female 10:52 AM [employer] Gender Identity Not on file Sexual Orientation Not on file Obstetrics History Last Filed Vital Signs Vital Sign Reading Time Taken Comments Blood Pressure 109/57 01/19/2024 7:11 AM [employer] Pulse 77 01/19/2024 7:11 AM [employer] Temperature 36.6 C (97.9 F) 01/19/2024 7:11 AM [employer] Respiratory Rate 18 01/19/2024 7:11 AM [employer] Oxygen Saturation 97% 01/19/2024 11:55 AM [employer] Inhaled Oxygen Concentration - - Weight 81.6 kg (180 lb) 01/17/2024 7:30 AM [employer] Height 157.5 cm (5' 2 ) 01/17/2024 7:30 AM [employer] Body Mass Index 32.92 01/17/2024 7:30 AM [employer] Plan of Treatment Health Maintenance Due Date Last Done Comments Albumin Creatinine Ratio, Urine 1945 Depression Screening 1945 Hepatitis C Screening 1945 Dilated Eye Exam 1945 Foot Exam 1945 Lipid Panel 1945 Hepatitis B Screening 1963 Lung Cancer Screening 1995 Zoster Vaccine (1 of 2) 1995 Well Visit 65+ 2010 DTaP/Tdap/Td Vaccine (2 - Td or Tdap) 10/15/2022 10/15/2012 Covid-19 Vaccine (6 - 2023-2 5 season) 2023 02/23/2021, 04/27/2020, 04/25/2020, Additional history exists Osteoporosis Screening-Bone Density Scan 05/09/2024 05/09/2022 Hemoglobin A1C 06/30/2024 01/01/2024 Influenza Vaccine (Season Ended) 2024 01/18/2021, 12/06/2019, 12/06/2019, Additional history exists eGFR 01/17/2025 01/18/2024, 01/01/2024 Fall Risk Assessment 01/18/2025 01/19/2024 Pneumococcal vaccine 65+ Completed 017, 09/23/2015, 08/31/2015 Medical Devices Implanted Type Area Electronics Specialist Device Identifier Shelf Expiration Date Model / Serial / Lot [employer] Liner Acetabular Hip Trident X3 40mm Polyethylene 0 Degree Size E 723-00-40e - [id number] Implanted:Qty: 1 on 01/17/2024 at [facility] Right: Hip [employer] 10/18/2028 723-00-40E / / [id number] [employer] 40mm Hip [place] Taper Head Femoral [employer] Delta 6519-1-040 - [id number] Implanted:Qty: 1 on 01/17/2024 at [facility] Right: Hip [employer] 11/11/2028 6519-1-040 / / [id number] [employer] Screw Bone Trident Ii L30mm Od6.5mm Low Profile Hexagonal Sterile 4468-0289 - [id number] Implanted:Qty: 1 on 01/17/2024 at [facility] Right: Hip [employer] 09/12/2028 [id number] / / [id number] [employer] Shell Acetabular Trident Ii Tritanium E Od52mm Hip 5 Screw Hole Cluster Sterile 702-04-52e - [id number] Implanted:Qty: 1 on 01/17/2024 at [facility] Right: Hip [employer] 11/07/2028 702-04-52E / / [id number] [employer] Stem Insignia Hip Size 6 High Offset 8297-0037 - [id number] Implanted:Qty: 1 on 01/17/2024 at [facility] Right: Hip [employer] 11/20/2028 [id number] / / [id number] [employer] V40 Hip +0mm Offset [place] Taper Sleeve Adapter Titanium 6519-T-100 - [id number] Implanted:Qty: 1 on 01/17/2024 at [facility] Right: Hip [employer] 12/04/2028 6519-T-100 / / [id number] Procedures Procedure Name Priority Date/Time Associated Diagnosis Comments XR HIP RIGHT W PELVIS 2 OR 3 VIEWS Schedule Routine, Read Routine (OP Routine) 04/22/2024 11:24 AM CDT Orthopedic aftercare EGFR Routine 01/18/2024 4:41 AM [employer] HEMOGLOBIN A1C Routine 01/01/2024 3:32 PM [employer] Preoperative testing Type 2 diabetes mellitus with chronic kidney disease, without long-term current use of insulin, unspecified CKD stage (HCC) from Last 3 Months or Most Recently Relevant to Health Maintenance Results * XR Hip Right 2 or 3 Views W Pelvis (04/22/2024 11:24 AM CDT) Anatomical Region Laterality Modality Lower Extremities, Hip, Pelvis Right C omputed Radiography 04/22/2024 12:1 6 PM CDT Impressions 04/22/2024 12:16 PM CDT Unchanged right total hip arthroplasty in expected position. Electronically signed by: Golden Azar M.D. Narrative 04/22/2024 12:16 PM CDT XR HIP RIGHT 2 OR 3 VIEWS W PELVIS HISTORY: Hip arthroplasty. FINDINGS: 3 views of the pelvis and right hip are obtained and compared with 02/02/2024. There is redemonstrated right total hip arthroplasty. Orthopedic components are in expected position. There is no periprosthetic fracture or osteolysis. Alignment and soft tissues are normal. Unchanged mild to moderate left hip osteoarthritis. Procedure Note Golden Azar MD - 04/22/2024 XR HIP RIGHT 2 OR 3 VIEWS W PELVIS HISTORY: Hip arthroplasty. FINDINGS: 3 views of the pelvis and right hip are obtained and compared with 02/02/2024. There is redemonstrated right total hip arthroplasty. Orthopedic components are in expected position. There is no periprosthetic fracture or osteolysis. Alignment and soft tissues are normal. Unchanged mild to moderate left hip osteoarthritis. IMPRESSION: Unchanged right total hip arthroplasty in expected position. Electronically signed by: Golden Azar M.D. Candy Wu NP IMG XR PROCEDURES Final R esult * eGFR (01/18/2024 4:41 AM [employer]) eGFR >90 >=60 mL/min/1. 73 m2 Comment: Interpretive Data Reference Interval Normal >/= 90 mL/min/1.73m2 Mildly decreased* 60 - 89 mL/min/1.73m2 Mildly to moderately decreased 45 - 59 mL/min/1.73m2 Moderately to severely decreased 30 - 44 mL/min/1.73m2 Severely decreased 15 - 29 mL/min/1.73m2 Kidney Failure < 15 mL/min/1.73m2 *Relative to young adult level Estimated glomerular filtration rate is determined by the 2020 CKD-EPI equation recommended by the National Kidney Foundation (A Unifying Approach to GFR Estimation: Recommendations of the NKF-ASK Task Force on Reassessing the Inclusion of Race in Diagnosing Kidney Disease, JASN 202). The CKD-EPI equation should not be used for patients with unstable renal function and has not been validated in children and those over 70. Current interpretive data was last reviewed 2020. Blood 01/18/2024 4:41 AM [employer] 01/18/2024 4:52 AM [employer] Kira [facility] LAB BLOOD ORDERABLES Jeanna balbina Result Performing Organization Address City[facility]/ZIP Co de Phone Number [facility] [address] [facility] Department [place] [address] * (ABNORMAL) Hemoglobin A1c (01/01/2024 3:32 PM [employer]) Hgb A1C 6.4(H) 4.0 - 5.6 % Estimated Average Glucose 137 mg/dL [facility] Comment: The ADA recommends reporting an estimated Average Glucose (eAG) with all Hemoglobin A1c results using the equation derived from a study of 507 normal and diabetic adults. Minority populations were underrepresented and children were not included. (Diabetes Care 2020; 43(S1): S66-S76). The eAG is not equivalent to a fasting glucose. Blood 01/01/2024 3:32 PM [employer] 01/01/2024 3:58 PM [employer] David Mehta MD LAB BLOOD ORDERABLES Final Resul t Performing Organization Address City/[facility]/[place] Co de Phone Number [facility] [address] [facility] [place] [address] from Last 3 Months or Most Recently Relevant to Health Maintenance Insurance MEDICARE MEDICARE IDPA MEDICARE IDPA Advance Directives For more information, please contact: [phone] * Full Code (Latest Code Status on File) Date Activated Date Inactivated Comments 01/17/2024 1:48 PM 01/19/2024 5:18 PM Care Teams Net Lead Architect Relationship Specialty Start Date End Date Tu Bach MD [address] [place] [address] PCP - General Internal Medicine 06/08/21
--- OUTSIDE RECORDS SUMMARY | 2024-05-08 08:56 | XMS_ITS | Referral Summary ---
Author Organization [facility] [place] [address] Address [address] [place] [address] Care Team Providers Care Line Closer Name Role Phone Tu Bach MD Primary Care Provide r Encounters Date Type Department Care Team Description 04/22/2024 11:00 AM CDT - 04/22/2024 11:59 PM CDT Hospital Encounter [facility] [address] [place] [address] [address] [place] [address] Orthopedic aftercare Discharge Disposition: Discharge to home or self care 04/22/2024 11:30 AM CDT Office Visit [facility] Orthopaedic Surgery [address] [place] [address] Medical Office Building [address] [place] [address] Candy Wu NP Orthopedic aftercare (Primary Dx); History of total hip arthroplasty, right from Last 3 Months Allergies Active Allergy Reactions Criticality Noted Date [...] mouth 2 (two) times a day 05/21/19 Active hydroCHLOROthiazid e (MICROZIDE) 12.5 mg capsule [...] as needed for pain 40 tablet 01/17/20 24 Active Additional Information Patient not taking.Reported on 04/22/2024 acetaminophen 500 mg capsuleIndications :Pain Take 2 capsules (1,000 mg total) by mouth every 8 (eight) hours 90 tablet 01/19/20 24 Active senna-docusate (PERICOLACE) 8.6-50 mgIndications:cons tipation Take 2 tablets by mouth 2 (two) times a day 80 tablet 01/19/20 24 Active Additional Information Patient not taking.Reported on 04/22/2024 meloxicam (MOBIC) 7.5 mg tabletIndications: Pain Take 1 tablet (7.5 mg total) by mouth daily 30 tablet 01/19/20 24 Active albuterol (PROAIR RESPICLICK) 90 mcg/actuation inhalerIndications :Chronic Obstructive Pulmonary Disease Inhale 2 puffs every 6 (six) hours as needed for wheezing or shortness of breath 1 each 01/19/20 24 025 Active aspirin 81 mg enteric coated tabletIndications: Deep Vein Thrombosis Prevention Take 1 tablet (81 mg total) by mouth 2 (two) times a day 60 tablet 01/19/20 Active ondansetron ODT (ZOFRAN-ODT) 4 mg disintegrating tabletIndications: Prevention of Post-Operative Nausea and Vomiting Take 1 tablet (4 mg total) by mouth every 8 (eight) hours as needed for nausea or vomiting 10 tablet 01/19/[address] (PROTONIX) 20 mg EC tabletIndications: Mucositis Prophylaxis Take 1 tablet (20 mg total) by mouth daily FOR GI PROTECTION WHILE TAKING MELOXICAM 30 tablet 01/19/20 Active Contour Next Test Strips strip USE 1 STRIP TO CHECK GLUCOSE ONCE DAILY 03/12/19 Active Unithroid 150 mcg tablet Take 1 [...] Obesity, unspecified 01/20/2024 Moderate major depression 01/20/2024 USP (current) use of oral hypoglycemic shanti gs 01/20/2024 Hypothyroidism, unspecified 01/20/2024 Chronic kidney disease, unspecified 01/20/2024 Body mass index (BMI) 32.0-32.9, adult Aftercare following joint replacement surgery Respiratory failure, post-operative 01/18/2024 Assessment & Plan (01/19/2024 1:26 PM COARSE WIRE DRAWER): Occurring after R ANDREW 01/16. Pt reports [...] 01/18/2024 Assessment & Plan (01/19/2024 1:22 PM COARSE WIRE DRAWER): Pt with h/o iron deficiency, though pre-op [...] complication Assessment & Plan (01/19/2024 1:26 PM COARSE WIRE DRAWER): -Hold home metformin, resume on discharge -Agree with SSI and BG monitoring. Skin lesion 04/27/2022 Alymi-4-qocpsczxbbo deficiency 04/20/2022 Hypoxia 04/20/2022 Dyspnea on exertion 03/07/2022 Obstructive sleep apnea syndrome 03/07/2022 Assessment & Plan (01/18/2024 5:38 PM COARSE WIRE DRAWER): Continue to use home CPAP at night and during naps. Aneurysm of thoracic aorta 01/19/2022 Nonalcoholic fatty liver 01/19/2022 COVID-19 01/16/2022 Hydroureter 01/09/2022 Chronic kidney disease 12/15/2021 Elevated liver enzymes 12/15/2021 Hyperglycemia 12/15/2021 Vitamin D deficiency 12/15/2021 Vertigo 09/07/2021 Chest pain, unspecified 07/15/2021 Hip pain 07/15/2021 Essential (primary) hypertension 07/15/2021 Assessment & Plan (01/18/2024 5:36 PM COARSE WIRE DRAWER): Agree with holding home carvedilol and HCTZ in setting of borderline BP. -Monitor BP and resume home meds in stepwise fashion Tobacco dependence syndrome 07/15/2021 Trochanteric bursitis of right hip 07/15/2021 Primary osteoarthritis of right hip 07/15/2021 Assessment & Plan (01/18/2024 5:38 PM COARSE WIRE DRAWER): S/p R ANDREW, defer management to primary ortho team Right hip pain 07/15/2021 It band syndrome, right 07/15/2021 Vitamin B12 deficiency anemia 01/29/2018 Microcytic anemia 01/22/2018 Hypertensive disorder 02/20/2017 Hyperlipidemia 02/20/2017 Hypothyroidism 02/20/2017 Assessment & Plan (01/18/2024 5:37 PM COARSE WIRE DRAWER): Cont synthroid Iron deficiency 02/20/2017 Palpitations 01/24/2013 Chronic obstructive pulmonary disease, unspecifi ed 11/28/2011 Assessment & Plan (01/19/2024 1:22 PM COARSE WIRE DRAWER): H/o COPD as well as 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 COPD may be contributing to present hypoxia, although not currently wheezing. -Scheduled duonebs ordered QID -For home would order PRN albuterol MDI q6h PRN -Hold on steroids for now unless wheezing Anemia, unspecified 11/28/2011 Obesity 11/28/2011 Immunizations Immunization Administration Dates Next Due Influenza, Quadrivalent, Hig h Dose, Preservative Free, Intrr 12/06/2019 Influenza, Quadrivalent, Spl it, Preservative Free, Intramuscular 01/18/2021 Influenza, Trivalent, High D ose, Split, Preservative Free, Intramuscular 12/06/2019,11/15/2018,11/12/2018,11/14,11/21/2016,10/16/2015 Influenza, Trivalent, IM (MDV) 12/05/2014,2012 Influenza, Unspecified 12/27/2017,11/30/2016 Moderna SARS-CoV-2 Monovalen t Vaccination (12+ YRS) 04/27/2020,04/07/2020 Pneumococcal Conjugate PCV 13 09/23/2015 Pneumococcal Polysaccharide PPV23 09/21/2016, Tdap 10/15/2012 Social History Tobacco Use Types Packs/Day Years Used Date Smoking Tobacco: Former Cigarettes 0.5 50.1 1 972 - 03/09/2021 Passive Smoke Exposure: Past Smokeless Tobacco: Never Tobacco Cessation:Counseling Given: Not Answered [facility] Utilities Answer Date Recorded In the past 12 months has th e electric, gas, oil, or water company threatened to [...] often do you attend chur ch or evangelical services? 1 to 4 times per year 01/18/2024 Do you belong to any clubs o r organizations such as adventist groups, unions, fraternal or athletic groups, or [...] any time in the past 12 m [facility], were you homeless or living in a chcf (including now)? No 01/18/2024 Personal Safety Answer Date Recorded Have you ever been in or are you currently in a harmful physical or emotional relationship or is someone making you feel afraid or unsafe? Denies 01/17/2024 Comments No Sex and Gender Information Value Date Recorded Sex Assigned at Not on file Legal Sex Female 10:52 AM COARSE WIRE DRAWER Gender Identity Not on file Sexual Orientation Not on file Last Filed Vital Signs Vital Sign Reading Time Taken Comments Blood Pressure 109/57 01/19/2024 7:11 AM COARSE WIRE DRAWER Pulse 77 01/19/2024 7:11 AM COARSE WIRE DRAWER Temperature 36.6 C (97.9 F) 01/19/2024 7:11 AM COARSE WIRE DRAWER Respiratory Rate 18 01/19/2024 7:11 AM COARSE WIRE DRAWER Oxygen Saturation 97% 01/19/2024 11:55 AM COARSE WIRE DRAWER Inhaled Oxygen Concentration - - Weight 81.6 kg (180 lb) 01/17/2024 7:30 AM COARSE WIRE DRAWER Height 157.5 cm (5' 2 ) 01/17/2024 7:30 AM COARSE WIRE DRAWER Body Mass Index 32.92 01/17/2024 7:30 AM COARSE WIRE DRAWER Plan of Treatment Not on file Medical Devices Implanted Type Area Vocational Counselor Device Identifier Shelf Expiration Date Model / Serial / Lot [employer] Liner Acetabular Hip Trident X3 40mm Polyethylene 0 Degree Size E 723-00-40e - [id number] Implanted:Qty: 1 on 01/17/2024 at [facility] Right: Hip [employer] 10/18/2028 723-00-40E / / [id number] [employer] 40mm Hip Bynum Taper Head Femoral Biolox Delta 6519-1-040 - [id number] Implanted:Qty: 1 on 01/17/2024 at [facility] Right: Hip [employer] 11/11/2028 6519-1-040 / / [id number] [employer] Screw Bone Trident Ii L30mm Od6.5mm Low Profile Hexagonal Sterile 7386-2328 - [id number] Implanted:Qty: 1 on 01/17/2024 at [facility] Right: Hip [employer] 09/12/2028 [id number] / / [id number] [employer] Shell Acetabular Trident Ii Tritanium E Od52mm Hip 5 Screw Hole Cluster Sterile 702-04-52e - [id number] Implanted:Qty: 1 on 01/17/2024 at [facility] Right: Hip [employer] 11/07/2028 702-04-52E / / [id number] [employer] Stem Insignia Hip Size 6 High Offset 0732-1243 - [id number] Implanted:Qty: 1 on 01/17/2024 at [facility] Right: Hip [employer] 11/20/2028 [id number] / / [id number] [employer] V40 Hip +0mm Offset Bynum Taper Sleeve Adapter Titanium 6519-T-100 - [id number] Implanted:Qty: 1 on 01/17/2024 at [facility] Right: Hip [employer] 12/04/2028 6519-T-100 / / [id number] Procedures Procedure Name Priority Date/Time Associated Diagnosis Comments XR HIP RIGHT W PELVIS 2 OR 3 VIEWS Schedule Routine, Read Routine (OP Routine) 04/22/2024 11:24 AM CDT Orthopedic aftercare EGFR Routine 01/18/2024 4:41 AM COARSE WIRE DRAWER HEMOGLOBIN A1C Routine 01/01/2024 3:32 PM COARSE WIRE DRAWER Preoperative testing Type 2 diabetes mellitus with [...] signed by: Golden Azar M.D. Candy Wu [employer] IMG XR PROCEDURES Final R esult * eGFR (01/18/2024 4:41 AM COARSE WIRE DRAWER) eGFR >90 >=60 mL/min/1. 73 m2 Comment: [...] last reviewed 2020. Blood 01/18/2024 4:41 AM COARSE WIRE DRAWER 01/18/2024 4:52 AM COARSE WIRE DRAWER Kira PEACE LAB BLOOD ORDERABLES Jeanna mortensen Result Performing Organization Address City/[facility]/ZIP Co de Phone Number [facility] [address] [facility] [place] [address] * (ABNORMAL) Hemoglobin A1c (01/01/2024 3:32 PM COARSE WIRE DRAWER) Hgb A1C 6.4(H) 4.0 - 5.6 % Estimated Average Glucose 137 mg/dL [facility] Comment: The ADA recommends reporting an estimated Average Glucose (eAG) with all Hemoglobin A1c results using the equation derived from a study of 507 normal and diabetic adults. Minority populations were underrepresented and children were not included. (Diabetes Care 2020; 43(S1): S66-S76). The eAG is not equivalent to a fasting glucose. Blood 01/01/2024 3:32 PM COARSE WIRE DRAWER 01/01/2024 3:58 PM COARSE WIRE DRAWER David Mehta MD LAB BLOOD ORDERABLES Final Resul t [facility] Department [place] [address] from Last 3 Months or Most Recently Relevant to Health Maintenance Insurance MEDICARE MEDICARE [facility] MEDICARE IDPA Advance Directives For more information, please contact: [phone] * Full Code (Latest Code Status on File) Date Activated Date Inactivated Comments 01/17/2024 1:48 PM 01/19/2024 5:18 PM Care Teams Line Closer Relationship Specialty Start Date End Date Tu Bach MD [address] [address] PCP - General Internal Medicine 06/08/21
[2024-05-08 08:58] LABS: Anisocytosis 2+; Ovalocytes 1+
[2024-05-08 08:59] LABS: Hypochromasia 1+
[2024-05-08 10:28] LABS: Anion Gap 9 mmol/L (4-12); Blood Urea Nitrogen 13 mg/dL (7-17); Calcium 10.2 mg/dL (8.4-10.2); Carbon Dioxide 24 mmol/L (22-30); Chloride 105 mmol/L (98-107); Estimated Glomerular Filt Rate > 60; Glucose 103 mg/dL (65-110); Iron 37 ug/dL (37-170); Potassium 4.1 mmol/L (3.4-5.0); Sodium 138 mmol/L (137-145)
[2024-05-08 10:39] LABS: Percent Iron Saturation 8 % (20-50)
[2024-05-08 11:05] LABS: Ferritin 6.23 ng/mL (11.1-264)
[2024-05-08 11:33] LABS: Folic Acid 11.2 ng/mL (2.76->20)
== END 2024-05-08 08:38 | disposition home or self-care (01) ==
PROVIDERS: PCP Internal Medicine; Visit Provider Internal Medicine Hematology & Oncology
DX: D64.9 Anemia, unspecified (principal)
CPT/HCPCS: 36415; 80048; 82607; 82728; 82746; 83540; 83550; 85025

== ENCOUNTER 2024-06-08 18:14 | Emergency (ER) | payer MEDICARE, MEDICAID, SELFPAY ==
[2024-06-08] VITALS (18 sets, daily range): BP systolic 114–160; BP diastolic 71–123; PULSE 74–94; RESP 12–25; O2SAT 86–98
--- NOTE | ~2024-06-08 | XR_ITS ---
XR chest 1V portable Ordering provider: Cr Fox MD History: 79 years Female with . Shortness of breath . Comparison: December 08, 2020 FINDINGS: MEDIASTINUM: The cardiac silhouette is slightly enlarged. Slightly congestive emiliano LUNGS: No infiltrates, effusions or pneumothorax. Minimal interstitial thickening bilaterally OTHER: No free air under the diaphragm. Degenerative changes of the spine. IMPRESSION: Slight cardiomegaly with congestive emiliano and interstitial thickening bilaterally which may indicate d ecompensation of the heart with pulmonary edema. Superimposed pneumonitis cannot be excluded. Follow- up advised with clinical correlation. Reviewed, dictated and finalized at location A. IMPRESSION: Slight cardiomegaly with congestive emiliano and interstitial thickening bilaterall y which may indicate decompensation of the heart with pulmonary edema. Superimp osed pneumonitis cannot be excluded. Follow-up advised with clinical correlatio n.
--- NOTE | ~2024-06-08 | CT_ITS ---
EXAMINATION: CT abdomen pelvis w con DATE: 06/08/2024 19:49 INDICATION: Abdominal pain TECHNIQUE: Computed tomography (CT) of the abdomen and pelvis was performed with 100 mL Omnipaque-350 intravenous contrast. Automated exposure control and iterative reconstruction technique were employe d. The dose-length product was 794.32 mGy-cm. COMPARISON: 07/26/2022, 12/08/2020. FINDINGS: Lower thorax: Bibasilar dependent atelectasis and scar. Air cyst in the right middle lobe. Mild coron ralf artery calcifications. Liver: Multiple liver cysts and subcentimeter hypodensities that are too small to characterize but li effie represent cysts or hemangiomas. New contour abnormality along the anterior surface of the left l iver lobe near the falciform ligament, measuring 2.0 cm across its base. Biliary/Gallbladder: Gallbladder is absent. Prominence of the intra and extrahepatic bile ducts, like ly secondary to cholecystectomy Pancreas: No mass or duct dilation. Spleen: Subcentimeter hypodensity, likely representing a cyst or hemangioma. Adrenals:No mass. Kidneys: No suspicious mass, obstructing stone, or hydronephrosis. GI tract: No small or large bowel dilation. Appendix not confidently visualized. Diverticulosis witho ut diverticulitis. Mesentery/Peritoneum: No ascites, mass, or free air. Retroperitoneum: No mass. Pelvis: Partially obscured by metal artifact. Grossly normal urinary bladder. Uterus and bilateral ov coty not confidently identified.. Soft Tissues: Soft tissues and body wall unremarkable. Bones: No acute osseous finding. Partially visualized, uncomplicated appearing right hip arthroplast y hardware. Grade 1 anterolisthesis at L3-4, with moderate central canal narrowing. Multilevel modera te bilateral neural foraminal narrowing secondary to degenerative change. IMPRESSION: New contour abnormality along the anterior surface of the left liver lobe, a developing mass is not e xcluded. Recommend nonemergent but timely MRI of the liver without and with contrast for further winter acterization. Otherwise, no acute abdominal pelvic process is detected. Reviewed, dictated and finalized at location K. IMPRESSION: New contour abnormality along the anterior surface of the left liver lobe, a de veloping mass is not excluded. Recommend nonemergent but timely MRI of the live r without and with contrast for further characterization. Otherwise, no acute abdominal pelvic process is detected.
[2024-06-08 18:42] LABS: Basophils Percent Auto 0.6 % (0.2-1.2); Eosinophils Absolute Auto 0.5 K/mm3 (0-0.3); Eosinophils Percent Auto 7.6 % (0-4.4); Hematocrit 34.7 % (37.0-47.0); Immature Granulocyte Absolute 0.03 K/mm3 (0.00-0.031); Immature Granulocyte Percent A 0.4 % (0-0.5); Lymphocytes Absolute Auto 1.11 K/mm3 (0.9-3.2); Lymphocytes Percent Auto 16.3 % (18.3-44.2); Mean Corpuscular HGB Conc 28.8 g/dl (32-36); Mean Corpuscular Hemoglobin 21.4 pg (26-34); Mean Corpuscular Volume 74.3 fl (80-100); Monocytes Absolute Auto 0.6 K/mm3 (0.1-0.6); Monocytes Percent Auto 8.1 % (2.6-8.5); Neutrophils Absolute Auto 4.6 K/mm3 (1.3-6.7); Platelet Count Result 333 k/mm3 (150-375); Red Blood Count 4.67 M/mm3 (4.2-5.4); Red Cell Distribution Width 25.6 % (11.5-14.5); White Blood Count 6.8 K/mm3 (4.5-10.0)
[2024-06-08 18:53] LABS: Alanine Aminotransferase 18 U/L (6-35); Albumin Level 4.4 g/dL (3.5-5.1); Alkaline Phosphatase 97 U/L (38-126); Anion Gap 8 mmol/L (4-12); Aspartate Amino Transferase 19 U/L (14-36); Bilirubin,Total 0.5 mg/dL (0.2-1.3); Blood Urea Nitrogen 14 mg/dL (7-17); Calcium 10.1 mg/dL (8.4-10.2); Carbon Dioxide 23 mmol/L (22-30); Chloride 106 mmol/L (98-107); Estimated CRCL calculation 52 ml/min; Estimated Glomerular Filt Rate > 60; Glucose 133 mg/dL (65-110); Lipase 86 U/L (23-300); Potassium 3.9 mmol/L (3.4-5.0); Sodium 137 mmol/L (137-145)
[2024-06-08 18:56] LABS: Platelet Estimate Adequate (Adequate)
[2024-06-08 18:58] LABS: Anisocytosis 1+; Microcytosis 1+ (NORMAL); Ovalocytes 1+; Schistocytes None Seen
[2024-06-08 19:06] LABS: Add Urine Microscopic? YES; Appearance Urine Clear (Clear); Bacteria Urine None Seen /hpf; Bilirubin Urine Negative (Negative); Blood Urine Negative (Negative); Color Urine Yellow (Yellow); Glucose Urine UA Negative (Negative); Ketones Urine Negative (Negative); Leukocyte Esterase Ur 2+ LEU/UL (Negative); Nitrate Urine Negative (Negative); Non Pathogenic Casts 0-2; Protein Urine Negative (Negative); RBC Urine 0-2 /hpf (0-2); Specific Grav Ur 1.011 (1.001-1.035); Squamous Epithelial Cell Urine Occasional /hpf (Few); Urobilinogen Urine 0.2 mg/dL (<2.0)
--- OUTSIDE RECORDS SUMMARY | 2024-06-08 19:22 | XMS_ITS | Data Portability ---
Author Organization [place] [facility] [employer], Main Office Address [address] [place] [address] Care Team Providers Care Java Swing Developer Name Role Phone SANJUANITA BACH Primary Care Provider Assessment Encounter Date Assessment Date Assessment LastModified by Organization Details LastModified Time 03/22/2023 03/22/2023 04/18/2022: A1C 6.2H Urine alb 21.0 VIT D 25.8 TSH/FT4: WNL CBC: WNL CMP: Gluc 132, ca 10.1 Calculated Lipids Stable 08/10/2022: A1C 5.8 Gluc 122, ca 10.3 calculated TG 173 11/15/2022: A1C 5.8 Gluc 130, Ca 10.9 03/13/2023: A1C 5.5 Gluc 133, Alb 4.6, Ca 10.7 TG 200 TSH 5.300H [email or web address] Not available 03/15/2023 11:00:55 07/19/2023 07/19/2023 04/18/2022: [...] her chart gerri Not available 10/23/2023 10:59:46 05/29/2024 05/29/2024 04/18/2022: A1C 6.2H Urine alb 21.0 VIT [...] 120 Gluc 135, Ca 10.8, Alb 4.5 05/21/2024: VIT D 28.3 H/H 9.2/32.3, MCV 71.1, PLT 439 LDL 121 Gluc 128 40 minutes spent with the patient in the office, reviewed labs and referred to various consults and updated her chart gerri Not available 05/29/2024 12:06:05 Plan of Treatment Reminders Order Date Submit Date Provider Last Modified By Organization Details Last Modified Time Details Appointments Any 15 2024 10:30A M Sanjuanita freitas MD Not available Not available Not available Lab lipid panel, serum 2024 025 [facility] (Lab), [address] [place], [address], 05/29/2024 16:00:55 CMP, serum or plasma 2024 025 [facility] (Lab), [address] [place], [address], 05/29/2024 16:00:54 CBC w/ auto diff 2024 025 [facility] (Lab), [address] [place], [address], 05/29/2024 16:00:54 TSH, serum or plasma 2024 025 [facility] (Lab), [address] [place], [address], 05/29/2024 16:00:54 T4, free, serum 2024 025 [facility] (Lab), [address] [place], [address], 05/29/2024 16:00:55 glycohemo globin, total, blood 2024 025 [facility] (Lab), [address] [place], [address], 05/29/2024 16:00:54 microalbu min, urine 2024 025 [facility] (Lab), [address] [place], [address], 05/29/2024 16:00:54 vitamin D, 25-hydrox y, total, serum 2024 025 [facility] (Lab), [address] [place], [address], 05/29/2024 16:00:54 lipid panel, serum 2023 024 [email or web address] Not available 04/23/2024 11:13:21 CMP, serum or plasma 2023 024 Not available 04/23/2024 11:13:21 CBC w/ auto diff 2023 024 RICHIE Not available 01/02/2024 11:49:13 TSH, serum or plasma 2023 024 [email or web address] Not available 04/23/2024 11:13:21 T4, free, serum 2023 024 [email or web address] Not available 04/23/2024 11:13:21 glycohemo globin, total, blood 2023 024 [email or web address] Not available 04/23/2024 11:13:20 microalbu min, urine 2023 024 [email or web address] Not available 04/23/2024 11:13:20 vitamin D, 25-hydrox y, total, serum 2023 024 [email or web address] Not available 04/23/2024 11:13:20 lipid panel, serum [...] D, 25-hydrox y, total, serum 2023 024 [email or web address] Not available 09/20/2023 09:29:45 Referral endocrino logy referral - Please call patient to schedule an appointme nt. Thank you. 2024 025 AYAD Stark MD, [address], [place], [address], 05/30/2024 13:09:27 otolaryng ologist referral - Please call patient to schedule an appointme nt. Thank you. 2024 025 AYAD Morin MD, [address] [facility] [address], [place], [address], 05/30/2024 16:23:30 gastroent erologist referral - Please call pt to schedule appointme nt. Thank you 2024 025 AYAD Vora MD, [address] [place], [address], 05/30/2024 12:37:57 pulmonolo gist referral - Please call patient to schedule an appointme nt. Thank you. 2024 025 AYAD Magana MD, [address] [facility], [place], [address], 05/30/2024 13:50:25 podiatris t referral - Please call pt to schedule appt. Thank you 2024 025 RICHIE Hoang DPM, [address], [place], [address], 05/30/2024 14:22:55 cardiolog ist referral - Please call patient to schedule an appointme nt. Thank you. 2024 025 [place], [address] [facility], [place], [address], 05/30/2024 13:01:55 nephrolog ist referral 2023 024 [email or web address] 2 Tres Duran MD, [address] [facility] [address], [place], [address], 04/22/2024 08:34:52 endocrino logy referral 2023 024 RICHIE Stark MD, [address], [place], [address], 04/30/2024 15:25:31 otolaryng ologist referral 2023 024 [email or web address] 2 Les Morales, [address], [place], [address], 04/22/2024 08:34:54 orthopedi c surgeon referral 2023 024 RICHIE Mehta MD, [address], [place], [address], 11/15/2023 13:50:47 pulmonolo gist referral 2023 024 [email or web address] 2 Simon Magana MD, [address] [facility], [place], [address], 04/22/2024 08:34:53 cardiolog ist referral 2023 024 [email or web address] 2 [place], [address] [facility], [place] [address], [address], 04/22/2024 08:34:51 gastroent erologist referral - Please call pt to schedule appt. Thank you 2023 024 [email or web address] 2 Janes Vora MD, [address] [place], [address], 04/22/2024 08:34:49 hematolog ist referral 2023 024 [email or web address] Darian Alvarenga MD, [address], [place], [address], 11/20/2023 08:59:10 podiatris t referral - Please call pt to schedule appt. Thank you 2023 024 [email or web address] 2 Bharath LOPEZM, [address], [place], [address], 04/22/2024 08:34:50 nephrolog ist referral 2023 024 [email or web address] Tres Duran MD, [address] [facility] [address], [place], [address], 01/15/2024 12:48:46 otolaryng ologist referral 2023 024 [email or web address] Bayron Morin MD, [address] [facility] [address], [place], [address], 01/15/2024 12:48:47 pulmonolo gist referral 2023 024 [email or web address] Simon Magana MD, [address] [facility], [place], [address], 04/15/2024 17:30:46 cardiolog ist referral 2023 024 [email or web address] [place], [address], [facility] [place], [address], 01/15/2024 12:48:44 gastroent erologist referral - Please call pt to schedule appt. Thank you 2023 024 [email or web address] Janes Vora MD, [address] [place], [address], 01/15/2024 12:48:43 hematolog ist referral 2023 024 [email or web address] Darian Alvarenga MD, [address], [place], [address], 08/16/2023 13:56:16 podiatris t referral - Please call pt to schedule appt. Thank you 2023 024 [email or web address] Bharath Hoang DPM, [address] [facility] [address], [place], [address], 01/15/2024 12:48:43 nephrolog ist referral 2023 024 [email or web address] Tres Duran MD, [address], [address], [address], 09/20/2023 09:33:10 gastroent erologist referral - Please call pt to schedule appt. Thank you 2023 024 [email or web address] Janes Vora MD, [address] [place], [address], 09/20/2023 09:33:08 podiatris t referral - Please call pt to schedule appt. Thank you 2023 024 [email or web address] Bharath Hoang DPM, [address] [facility] [address], [place], [address], 09/20/2023 09:33:09 cardiolog ist referral 2023 024 [email or web address] [place], [address] [facility] [address], [address], 10/16/2023 09:39:54 Procedures None recorded. Surgeries None recorded. Imaging MAMMO, screening , digital, bilateral - Please call patient to schedule. 2024 025 [facility] ([facility]), [address] [place], [address], 05/29/2024 18:25:18 bone density - Please call patient to schedule. 2024 025 [facility] ([facility]), [address] [place], [address], 05/29/2024 18:25:18 US, thyroid 2023 024 [facility], [address] [place], [address], 02/05/2024 14:20:47 MAMMO, screening , digital, bilateral 2023 024 [facility], [address] [place], [address], 08/21/2023 13:06:19 US, thyroid 2023 024 [email or web address] [facility], [address] [place], [address], 02/05/2024 14:20:52 MAMMO, screening , digital, bilateral 2023 024 [email or web address] [facility] [place], [address] [place], [address], 09/08/2023 15:46:01 Medication Orders sertralin e 25 mg tablet 2024 025 [facility] [place], [address], 05/29/2024 12:29:22 cholecalc iferol (vitamin D3) 1,250 mcg (50,000 unit) capsule [address] [facility] [address] [facility] [address] [place], [address], 05/29/2024 15:45:11 sertralin e 25 mg tablet [address] [facility] [address], [address] [place], [address], 10/23/2023 14:32:23 Unithroid 150 mcg tablet 2023 024 [facility], [address] [place], [address], 10/23/2023 11:28:10 levothyro xine 150 mcg tablet 2023 024 [email or web address] [facility] [address], [address] [place], [address], 07/24/2023 18:30:47 Patient TargetsNo targets recorded. Patient Instructions Encounter Date Encounter Id Patient Instructions Last Modified By Organization Details Last Modified Time 07/19/2023 [id number] dementia rating scale-2* [email or web address] 2 Not available 07/19/2023 11:34:17 alcohol misuse* [email or web address] 2 Not available 07/19/2023 11:34:17 depression screening* [email or web address] 2 Not available 07/19/2023 11:34:17 Timed Up and Go test (TUG)* [email or web address] 2 Not available 07/19/2023 11:34:16 multi-dimensiona l health assessment questionnaire* [email or web address] Not available 07/24/2023 15:51:19 advance directiv es: care instructions [email or web address] 2 Not available 07/19/2023 11:34:17 advance care planning: care instructions [email or web address] 2 Not available 07/19/2023 11:34:17 [place] Advance Directives [email or web address] 2 Not available 07/19/2023 11:34:17 diabetic eye exam* [email or web address] Not availa ble 04/15/2024 17:30:56 Personalized Hea [...] Screening: Your next PAP/pelvic in: Referral to microfilm camera operator Osteoporosis Screening: Date Screening Last Performed: 05/10/22 Colon Cancer Screening: Colonoscopy Date Screening Last Performed: 06/13/2018 Eye Disease Screening: Ordered Recommended today Dementia Risk: Low I have no recommendations Depression Screening: Negative [email or web address] Not available 07/19/2023 11:19:12 10/23/2023 [id number] diabetic eye exam* [email or web address] Not avai lable 04/22/2024 08:34:28 Reason for Referral Air Quality Instrument Specialist Referral for Increased liver function Please call pt to schedule appt. Thank you Referring Physician: Sanjuanita Bach Internal Medicine, Encounter Date: 03/22/2023 Agriculture Teacher Referral for Hype rglycemia Please call pt to schedule appt. Thank you Referring Physician: Sanjuanita Bach Internal Medicine, Encounter Date: 03/22/2023 Manager Agriculture Referral for Es sential hypertension Referring Physician: Sanjuanita Bach Internal Medicine, Encounter Date: 03/22/2023 Asian Studies Program Chair Referral for Hy percalcemia Referring Physician: Noy Barrios Medicine, Encounter Date: 03/22/2023 Air Quality Instrument Specialist Referral for Increased liver function Please call pt to schedule appt. Thank you Referring Physician: Noy Barrios Medicine, Encounter Date: 07/19/2023 Agriculture Teacher Referral for Hype rglycemia Please call pt to schedule appt. Thank you Referring Physician: Noy Barrios Medicine, Encounter Date: 07/19/2023 Manager Agriculture Referral for Es sential hypertension Referring Physician: Noy Barrios, Encounter Date: 07/19/2023 Asian Studies Program Chair Referral for Hy percalcemia Referring Physician: Noy Barrios Medicine, Encounter Date: 07/19/[address] Researcher Referral for C hronic obstructive pulmonary disease Referring Physician: Noy Barrios, Encounter Date: 07/19/2023 Utility Clerk Referral fo r Bleeding from nose Referring Physician: Noy Barrios, Encounter Date: 07/19/2023 Referring Physician: Noy Barrios, Encounter Date: 07/19/2023 Air Quality Instrument Specialist Referral for Increased liver function Please call pt to schedule appt. Thank you Referring Physician: Noy Barrios, Encounter Date: 10/23/2023 Agriculture Teacher Referral for Hype rglycemia Please call pt to schedule appt. Thank you Referring Physician: Noy Barrios, Encounter Date: 10/23/2023 Manager Agriculture Referral for Es sential hypertension Referring Physician: Noy Barrios, Encounter Date: 10/23/2023 Asian Studies Program Chair Referral for Hy percalcemia Referring Physician: Noy Barrios, Encounter Date: 10/23/[address] Researcher Referral for C hronic obstructive pulmonary disease Referring Physician: Noy Barrios, Encounter Date: 10/23/2023 Utility Clerk Referral fo r Bleeding from nose Referring Physician: Noy Barrios, Encounter Date: 10/23/2023 Referring Physician: Sanjuanita Bach Internal Medicine, Encounter Date: 10/23/2023 Endocrinology Referral for H ypercalcemia Referring Physician: Sanjuanita Bach Internal Medicine, Encounter Date: 10/23/2023 Orthopedic Surgeon Referral for Pain of right hip joint Referring Physician: Sanjuanita Bach Internal Medicine, Encounter Date: 10/23/2023 Air Quality Instrument Specialist Referral for Increased liver function Please call pt to schedule appointment. Thank you Referring Physician: Noy Barrois Medicine, Encounter Date: 05/29/2024 Agriculture Teacher Referral for Hype rglycemia Please call pt to schedule appt. Thank you Referring Physician: Noy Barrios Medicine, Encounter Date: 05/29/2024 Manager Agriculture Referral for Es sential hypertension Please call patient to schedule an appointment. Thank you. Referring Physician: Noy Barrios Medicine, Encounter Date: 05/29/[address]earcher Referral for C hronic obstructive pulmonary disease Please call patient to schedule an appointment. Thank you. Referring Physician: Noy Barrios Medicine, Encounter Date: 05/29/2024 Utility Clerk Referral fo r Bleeding from nose Please call patient to schedule an appointment. Thank you. Referring Physician: Noy Barrios Medicine, Encounter Date: 05/29/2024 Endocrinology Referral for H ypercalcemia Please call patient to schedule an appointment. Thank you. Referring Physician: Noy Barrios Medicine, Encounter Date: 05/29/2024 Results Created Date Observation Date Name Description Value Unit Range Abnormal Flag Note LastModifiedBy Organization Detail LastModifiedTime 03/13/19 24 03/13/2023 CBC/C OMPLE TE BLD COUNT W/DIF F white blood cells 5.3 x10'3 /uL 4.2-10 .8 Not Available [facility] (Lab) [address] [place], [address], 03/13/2023 13:00:44 03/13/19 24 03/13/2023 CBC/C OMPLE TE BLD COUNT W/DIF F red blood cells 4.48 x10'6 /uL 3.80-5 .20 Not Available [facility] (Lab) [address] [place], [address], 03/13/2023 13:00:44 03/13/19 24 03/13/2023 CBC/C OMPLE TE BLD COUNT W/DIF F hemoglobin 12.2 g/dL 12.0-1 5.6 Not Available [facility] (Lab) [address] [place], [address], 03/13/2023 13:00:44 03/13/19 24 03/13/2023 CBC/C OMPLE TE BLD COUNT W/DIF F hematocrit 38.6 % 35.7-4 5.7 Not Available [facility] (Lab) [address] [place], [address], 03/13/2023 13:00:44 03/13/19 24 03/13/2023 CBC/C OMPLE TE BLD COUNT W/DIF F mean red cell volume 86.2 fL 82.0-9 9.0 Not Available [facility] (Lab) [address] [place], [address], 03/13/2023 13:00:44 03/13/19 24 03/13/2023 CBC/C OMPLE TE BLD COUNT W/DIF F mean red cell hemoglobin 27.2 pg 27.0-3 3.0 Not Available [facility] (Lab) [address] [place], [address], 03/13/2023 13:00:44 03/13/19 24 03/13/2023 CBC/C OMPLE TE BLD COUNT W/DIF F mean RBC HGB concentratio n 31.6 g/dL 31.0-3 6.0 Not Available [facility] (Lab) [address] [place], [address], 03/13/2023 13:00:44 03/13/19 24 03/13/2023 CBC/C OMPLE TE BLD COUNT W/DIF F red cell distribution width 16.0 % 11.8-1 5.5 high Not Available [facility] (Lab) [address] [place], [address], 03/13/2023 13:00:44 03/13/19 24 03/13/2023 CBC/C OMPLE TE BLD COUNT W/DIF F platelets 334 x10'3 /uL 150-40 0 Not Available [facility] (Lab) [address] [place], [address], 03/13/2023 13:00:44 03/13/19 24 03/13/2023 CBC/C OMPLE TE BLD COUNT W/DIF F mean platelet volume 10.8 fL 9.0-12 .4 Not Available [facility] (Lab) [address] [place], [address], 03/13/2023 13:00:44 03/13/19 24 03/13/2023 CBC/C OMPLE TE BLD COUNT W/DIF F neutrophils 58.5 % 39.0-7 2.0 Not Available [facility] (Lab) [address] [place], [address], 03/13/2023 13:00:44 03/13/19 24 03/13/2023 CBC/C OMPLE TE BLD COUNT W/DIF F lymphocytes 18.9 % 16.0-4 7.0 Not Available [facility] (Lab) [address] [place], [address], 03/13/2023 13:00:44 03/13/19 24 03/13/2023 CBC/C OMPLE TE BLD COUNT W/DIF F monocytes 9.8 % 5.0-12 .0 Not Available [facility] (Lab) [address] [place], [address], 03/13/2023 13:00:44 03/13/19 24 03/13/2023 CBC/C OMPLE TE BLD COUNT W/DIF F eosinophils 11.3 % 1.0-7. 0 high Not Available [facility] (Lab) [address] [place], [address], 03/13/2023 13:00:44 03/13/19 24 03/13/2023 CBC/C OMPLE TE BLD COUNT W/DIF F basophils 1.3 % 0.0-2. 0 Not Available [facility] (Lab) [address] [place], [address], 03/13/2023 13:00:44 03/13/19 24 03/13/2023 CBC/C OMPLE TE BLD COUNT W/DIF F immature granulocytes 0.2 % 0.00-0 .50 Not Available [facility] (Lab) [address] [place], [address], 03/13/2023 13:00:44 03/13/19 24 03/13/2023 CBC/C OMPLE TE BLD COUNT W/DIF F neutrophils, absolute count 3.12 x10'3 /uL 1.5-8. 0 Not Available [facility] (Lab) [address] [place], [address], 03/13/2023 13:00:44 03/13/19 24 03/13/2023 CBC/C OMPLE TE BLD COUNT W/DIF F lymphocytes, absolute count 1.01 x10'3 /uL 1.07-3 .43 low Not Available [facility] (Lab) [address] [place], [address], 03/13/2023 13:00:44 03/13/19 24 03/13/2023 CBC/C OMPLE TE BLD COUNT W/DIF F monocytes, absolute count 0.52 x10'3 /uL 0.29-0 .99 Not Available [facility] (Lab) [address] [place], [address], 03/13/2023 13:00:44 03/13/19 24 03/13/2023 CBC/C OMPLE TE BLD COUNT W/DIF F eosinophils, absolute count 0.60 x10'3 /uL 0.02-0 .53 high Not Available [facility] (Lab) [address] [place], [address], 03/13/2023 13:00:44 03/13/19 24 03/13/2023 CBC/C OMPLE TE BLD COUNT W/DIF F basophils, absolute count 0.07 x10'3 /uL 0.01-0 .08 Not Available [facility] (Lab) [address] [place], [address], 03/13/2023 13:00:44 03/13/19 24 03/13/2023 CBC/C OMPLE TE BLD COUNT W/DIF F immature granulocytes ,absolute 0.01 x10'3 /uL 0.00-0 .05 Not Available [facility] (Lab) [address] [place], [address], 03/13/2023 13:00:44 03/13/19 24 03/13/2023 CBC/C OMPLE TE BLD COUNT W/DIF F nucleated red blood cells 0.0 % -0 Not Available [facility] (Lab) [address] [place], [address], 03/13/2023 13:00:44 03/13/19 24 03/13/2023 CBC/C OMPLE TE BLD COUNT W/DIF F NRBC# 0.00 x10'3 /uL Not Available [facility] (Lab) [address] [place], [address], 03/13/2023 13:00:44 03/13/19 24 03/13/2023 MICRO ALBUM IN RANDO M URINE microalbumin , urine 8.2 mg/L 0.0-16 .6 Not Available [facility] (Lab) [address] [place], [address], 03/13/2023 13:03:32 03/13/19 24 03/13/2023 T4 FREE free T4 1.40 NG/dL 0.78-2 .19 Not Available [facility] (Lab) [address] [place], [address], 03/13/2023 13:55:34 03/13/19 24 03/13/2023 VITAM IN D 25-HY DROXY [id number] 30.8 NG/mL 30-100 Vitam in D Statu s: Defic ient: <20 ng/mL Insuf ficie nt: 20-29 ng/mL Suffi cient : 30-10 0 ng/mL Not Available [facility] (Lab) [address] [place], [address], 03/13/2023 13:55:44 03/13/19 24 03/13/2023 TSH thyroid-stim ulating hormone 5.300 uIU/m L 0.465- 4.680 high Not Available [facility] (Lab) [address] [place], [address], 03/13/2023 14:04:38 03/13/19 24 03/13/2023 HEMOG LOBIN A1C HA1C 5.5 % 4.0-6. 0 Diabe shaun Scree efren Crite len: <5.7% Consi stent with absen ce of diabe shaun 5.7-6 .4% Consi stent with incre ased risk for diabe shaun (pred iabet es) >OR=6 .5% Consi stent with diabe shaun REFER ENCE: Diabe shaun Care 2016, 39(Enriquez ppl.1 ):s13 -s22 Not Available [facility] (Lab) [address] [place], [address], 03/13/2023 14:33:53 03/13/19 24 03/13/2023 LIPID PANEL cholesterol 181 mg/dL 140-19 9 NIH MATEUS NSUS RECOM MENDA TION FOR SAEED STERO L: ADULT CHILD LOW RISK: <200 <170 BORDE RLINE : <200- 239 ----- HIGH RISK: >240 >200 Not Available [facility] (Lab) [address] [place], [address], 03/13/2023 14:45:59 03/13/19 24 03/13/2023 LIPID PANEL triglyceride s 200 mg/dL 0-150 high NIH MATEUS NSUS REPOR T RECOM MENDA TION FOR TRIGL YCERI DAVID: ADULT CHILD LOW RISK: <150 ----- BODER LINE: 150-1 99 ----- HIGH RISK: >200 ----- Not Available [facility] (Lab) [address] [place], [address], 03/13/2023 14:45:59 03/13/19 24 03/13/2023 LIPID PANEL HDL cholesterol 42 mg/dL 40- Not Available [facility] (Lab) [address] [place], [address], 03/13/2023 14:45:59 03/13/19 24 03/13/2023 LIPID PANEL [...] WILL NOT BE REPOR MIHIR. Not Available [facility] (Lab) [address] [place], [address], 03/13/2023 14:45:59 03/13/19 24 03/13/2023 COMPR EHENS CHAU METAB OLIC PANEL sodium 138 mmol/ L 137-14 5 Not Available [facility] (Lab) [address] [place], [address], 03/13/2023 14:46:07 03/13/19 24 03/13/2023 COMPR EHENS CHUA METAB OLIC PANEL potassium 4.5 mmol/ L 3.5-5. 1 Not Available [facility] (Lab) [address] [place], [address], 03/13/2023 14:46:07 03/13/19 24 03/13/2023 COMPR EHENS CHAU METAB OLIC PANEL chloride 103 mmol/ L 98-107 Not Available [facility] (Lab) [address] [place], [address], 03/13/2023 14:46:07 03/13/19 24 03/13/2023 COMPR EHENS CHAU METAB OLIC PANEL carbon dioxide 26 mmol/ L 22-30 Not Available [facility] (Lab) [address] [place], [address], 03/13/2023 14:46:07 03/13/19 24 03/13/2023 COMPR EHENS CHAU METAB OLIC PANEL anion gap 13.5 mmol/ L 14-22 low Not Available [facility] (Lab) [address] [place], [address], 03/13/2023 14:46:07 03/13/19 24 03/13/2023 COMPR EHENS CHAU METAB OLIC PANEL glucose 133 mg/dL 70-99 high Not Available [facility] (Lab) [address] [place], [address], 03/13/2023 14:46:07 03/13/19 24 03/13/2023 COMPR EHENS CHAU METAB OLIC PANEL BUN 16 mg/dL 8-19 Not Available [facility] (Lab) [address] [place], [address], 03/13/2023 14:46:07 03/13/19 24 03/13/2023 COMPR EHENS CHAU METAB OLIC PANEL creatinine 0.69 mg/dL 0.66-1 .25 Not Available [facility] (Lab) [address] [place], [address], 03/13/2023 14:46:07 03/13/19 24 03/13/2023 COMPR EHENS CHAU METAB OLIC PANEL GFR >60 Refer ence Range : [place] GFR Healt hy Adult : >60 [...] or ethni c subgr oups, such as mo nics. Outsi de the valid ated liz [...] calcu lator is avail able on the F websi te: https :[email or web address] w.[email or web address] costello.o mariola/pr howardess ional s/kdo qi/gf r_cal culat or Not Available [facility] (Lab) [address] [place], [address], 03/13/2023 14:46:07 03/13/19 24 03/13/2023 COMPR EHENS CHAU METAB OLIC PANEL alkaline phosphatase 95 U/L 38-126 Not Available [facility] (Lab) [address] [place], [address], 03/13/2023 14:46:07 03/13/19 24 03/13/2023 COMPR EHENS CHAU METAB OLIC PANEL alanine aminotransfe rase 19 U/L 0-35 Not Available [facility] (Lab) [address] [place], [address], 03/13/2023 14:46:07 03/13/19 24 03/13/2023 COMPR EHENS CHAU METAB OLIC PANEL aspartate aminotransfe rase 20 U/L 15-37 Not Available [facility] (Lab) [address] [place], [address], 03/13/2023 14:46:07 03/13/19 24 03/13/2023 COMPR EHENS CHAU METAB OLIC PANEL bilirubin, total 0.80 mg/dL 0.20-1 .30 Not Available [facility] (Lab) [address] [place], [address], 03/13/2023 14:46:07 03/13/19 24 03/13/2023 COMPR EHENS CHAU METAB OLIC PANEL calcium 10.7 mg/dL 8.4-10 .2 high Not Available [facility] (Lab) [address] [place], [address], 03/13/2023 14:46:07 03/13/19 24 03/13/2023 COMPR EHENS CHAU METAB OLIC PANEL total protein 7.6 g/dL 6.3-8. 2 Not Available [facility] (Lab) [address] [place], [address], 03/13/2023 14:46:07 03/13/19 24 03/13/2023 COMPR EHENS CHAU METAB OLIC PANEL albumin 4.6 g/dL 3.0-4. 4 high Not Available [facility] (Lab) [address] [place], [address], 03/13/2023 14:46:07 03/13/19 24 03/13/2023 COMPR EHENS CHAU METAB OLIC PANEL globulin 3.0 g/dL 2.6-4. 2 Not Available [facility] (Lab) [address] [place], [address], 03/13/2023 14:46:07 03/13/19 24 03/13/2023 COMPR EHENS CHAU METAB OLIC PANEL A/G ratio 1.5 ratio 1.0-2. 0 Not Available [facility] (Lab) [address] [place], [address], 03/13/2023 14:46:07 07/12/19 24 07/12/2023 CBC/C OMPLE TE BLD COUNT W/DIF F white blood cells 5.5 x10'3 /uL 4.2-10 .8 Not Available [facility] (Lab) [address] [place], [address], 07/12/2023 13:52:06 07/12/19 24 07/12/2023 CBC/C OMPLE TE BLD COUNT W/DIF F red blood cells 4.11 x10'6 /uL 3.80-5 .20 Not Available [facility] (Lab) [address] [place], [address], 07/12/2023 13:52:06 07/12/19 24 07/12/2023 CBC/C OMPLE TE BLD COUNT W/DIF F hemoglobin 11.1 g/dL 12.0-1 5.6 low Not Available [facility] (Lab) [address] [place], [address], 07/12/2023 13:52:06 07/12/19 24 07/12/2023 CBC/C OMPLE TE BLD COUNT W/DIF F hematocrit 35.2 % 35.7-4 5.7 low Not Available [facility] (Lab) [address] [place], [address], 07/12/2023 13:52:06 07/12/19 24 07/12/2023 CBC/C OMPLE TE BLD COUNT W/DIF F mean red cell volume 85.6 fL 82.0-9 9.0 Not Available [facility] (Lab) [address] [place], [address], 07/12/2023 13:52:06 07/12/19 24 07/12/2023 CBC/C OMPLE TE BLD COUNT W/DIF F mean red cell hemoglobin 27.0 pg 27.0-3 3.0 Not Available [facility] (Lab) [address] [place], [address], 07/12/2023 13:52:06 07/12/19 24 07/12/2023 CBC/C OMPLE TE BLD COUNT W/DIF F mean RBC HGB concentratio n 31.5 g/dL 31.0-3 6.0 Not Available [facility] (Lab) [address] [place], [address], 07/12/2023 13:52:06 07/12/19 24 07/12/2023 CBC/C OMPLE TE BLD COUNT W/DIF F red cell distribution width 16.2 % 11.8-1 5.5 high Not Available [facility] (Lab) [address] [place], [address], 07/12/2023 13:52:06 07/12/19 24 07/12/2023 CBC/C OMPLE TE BLD COUNT W/DIF F platelets 361 x10'3 /uL 150-40 0 Not Available [facility] (Lab) [address] [place], [address], 07/12/2023 13:52:06 07/12/19 24 07/12/2023 CBC/C OMPLE TE BLD COUNT W/DIF F mean platelet volume 10.6 fL 9.0-12 .4 Not Available [facility] (Lab) [address] [place], [address], 07/12/2023 13:52:06 07/12/19 24 07/12/2023 CBC/C OMPLE TE BLD COUNT W/DIF F neutrophils 63.0 % 39.0-7 2.0 Not Available [facility] (Lab) [address] [place], [address], 07/12/2023 13:52:06 07/12/19 24 07/12/2023 CBC/C OMPLE TE BLD COUNT W/DIF F lymphocytes 18.7 % 16.0-4 7.0 Not Available [facility] (Lab) [address] [place], [address], 07/12/2023 13:52:06 07/12/19 24 07/12/2023 CBC/C OMPLE TE BLD COUNT W/DIF F monocytes 9.3 % 5.0-12 .0 Not Available [facility] (Lab) [address] [place], [address], 07/12/2023 13:52:06 07/12/19 24 07/12/2023 CBC/C OMPLE TE BLD COUNT W/DIF F eosinophils 7.9 % 1.0-7. 0 high Not Available [facility] (Lab) [address] [place], [address], 07/12/2023 13:52:06 07/12/19 24 07/12/2023 CBC/C OMPLE TE BLD COUNT W/DIF F basophils 0.9 % 0.0-2. 0 Not Available [facility] (Lab) [address] [place], [address], 07/12/2023 13:52:06 07/12/19 24 07/12/2023 CBC/C OMPLE TE BLD COUNT W/DIF F immature granulocytes 0.2 % 0.00-0 .50 Not Available [facility] (Lab) [address] [place], [address], 07/12/2023 13:52:06 07/12/19 24 07/12/2023 CBC/C OMPLE TE BLD COUNT W/DIF F neutrophils, absolute count 3.44 x10'3 /uL 1.5-8. 0 Not Available [facility] (Lab) [address] [place], [address], 07/12/2023 13:52:06 07/12/19 24 07/12/2023 CBC/C OMPLE TE BLD COUNT W/DIF F lymphocytes, absolute count 1.02 x10'3 /uL 1.07-3 .43 low Not Available [facility] (Lab) [address] [place], [address], 07/12/2023 13:52:06 07/12/19 24 07/12/2023 CBC/C OMPLE TE BLD COUNT W/DIF F monocytes, absolute count 0.51 x10'3 /uL 0.29-0 .99 Not Available [facility] (Lab) [address] [place], [address], 07/12/2023 13:52:06 07/12/19 24 07/12/2023 CBC/C OMPLE TE BLD COUNT W/DIF F eosinophils, absolute count 0.43 x10'3 /uL 0.02-0 .53 Not Available [facility] (Lab) [address] [place], [address], 07/12/2023 13:52:06 07/12/19 24 07/12/2023 CBC/C OMPLE TE BLD COUNT W/DIF F basophils, absolute count 0.05 x10'3 /uL 0.01-0 .08 Not Available [facility] (Lab) [address] [place], [address], 07/12/2023 13:52:06 07/12/19 24 07/12/2023 CBC/C OMPLE TE BLD COUNT W/DIF F immature granulocytes ,absolute 0.01 x10'3 /uL 0.00-0 .05 Not Available [facility] (Lab) [address] [place], [address], 07/12/2023 13:52:06 07/12/19 24 07/12/2023 CBC/C OMPLE TE BLD COUNT W/DIF F nucleated red blood cells 0.0 % -0 Not Available [facility] (Lab) [address] [place], [address], 07/12/2023 13:52:06 07/12/19 24 07/12/2023 CBC/C OMPLE TE BLD COUNT W/DIF F NRBC# 0.00 x10'3 /uL Not Available [facility] (Lab) [address] [place], [address], 07/12/2023 13:52:06 07/12/19 24 07/12/2023 LIPID PANEL cholesterol 190 mg/dL 140-19 9 NIH MATEUS NSUS RECOM MENDA TION FOR SAEED STERO L: ADULT CHILD LOW RISK: <200 <170 BORDE RLINE : <200- 239 ----- HIGH RISK: >240 >200 Not Available [facility] (Lab) [address] [place], [address], 07/12/2023 14:23:16 07/12/1907/12/2023 LIPID PANEL triglyceride s 145 mg/dL 0-150 NIH MATEUS NSUS REPOR T RECOM MENDA TION FOR TRIGL YCERI DAVID: ADULT CHILD LOW RISK: <150 ----- BODER LINE: 150-1 99 ----- HIGH RISK: >200 ----- Not Available [facility] (Lab) [address] [place], [address], 07/12/2023 14:23:16 07/12/19 24 07/12/2023 LIPID PANEL HDL cholesterol 45 mg/dL 40- Not Available [facility] (Lab) [address] [place], [address], 07/12/2023 14:23:16 07/12/19 24 07/12/2023 LIPID PANEL [...] WILL NOT BE REPOR MIHIR. Not Available [facility] (Lab) [address] [place], [address], 07/12/2023 14:23:16 07/12/19 24 07/12/2023 COMPR EHENS CHAU METAB OLIC PANEL sodium 138 mmol/ L 137-14 5 Not Available [facility] (Lab) [address] [place], [address], 07/12/2023 14:23:28 07/12/19 24 07/12/2023 COMPR EHENS CHAU METAB OLIC PANEL potassium 4.6 mmol/ L 3.5-5. 1 Not Available [facility] (Lab) [address] [place], [address], 07/12/2023 14:23:28 07/12/19 24 07/12/2023 COMPR EHENS CHAU METAB OLIC PANEL chloride 105 mmol/ L 98-107 Not Available [facility] (Lab) [address] [place], [address], 07/12/2023 14:23:28 07/12/19 24 07/12/2023 COMPR EHENS CHAU METAB OLIC PANEL carbon dioxide 26 mmol/ L 22-30 Not Available [facility] (Lab) [address] [place], [address], 07/12/2023 14:23:28 07/12/19 24 07/12/2023 COMPR EHENS CHAU METAB OLIC PANEL anion gap 11.6 mmol/ L 14-22 low Not Available [facility] (Lab) [address] [place], [address], 07/12/2023 14:23:28 07/12/19 24 07/12/2023 COMPR EHENS CHAU METAB OLIC PANEL glucose 124 mg/dL 70-99 high Not Available [facility] (Lab) [address] [place], [address], 07/12/2023 14:23:28 07/12/19 24 07/12/2023 COMPR EHENS CHAU METAB OLIC PANEL BUN 14 mg/dL 8-19 Not Available [facility] (Lab) [address] [place], [address], 07/12/2023 14:23:28 07/12/19 24 07/12/2023 COMPR EHENS CHAU METAB OLIC PANEL creatinine 0.74 mg/dL 0.66-1 .25 Not Available [facility] (Lab) [address] [place], [address], 07/12/2023 14:23:28 07/12/19 24 07/12/2023 COMPR EHENS CHAU METAB OLIC PANEL GFR >60 Refer ence Range : [place] GFR Healt hy Adult : >60 [...] calcu lator is avail able on the [facility] websi te: https :[email or web address] [email or web address] [email or web address]/pr howardess ional s/kdo qi/gf r_cal culat or Not Available [facility] (Lab) [address] [place], [address], 07/12/2023 14:23:28 07/12/19 24 07/12/2023 COMPR EHENS CHAU METAB OLIC PANEL alkaline phosphatase 91 U/L 38-126 Not Available [facility] (Lab) [address] [place], [address], 07/12/2023 14:23:28 07/12/19 24 07/12/2023 COMPR EHENS CHAU METAB OLIC PANEL alanine aminotransfe rase 22 U/L 0-35 Not Available [facility] (Lab) [address] [place], [address], 07/12/2023 14:23:28 07/12/19 24 07/12/2023 COMPR EHENS CHAU METAB OLIC PANEL aspartate aminotransfe rase 23 U/L 15-37 Not Available [facility] (Lab) [address] [place], [address], 07/12/2023 14:23:28 07/12/19 24 07/12/2023 COMPR EHENS CHAU METAB OLIC PANEL bilirubin, total 0.80 mg/dL 0.20-1 .30 Not Available [facility] (Lab) [address] [place], [address], 07/12/2023 14:23:28 07/12/19 24 07/12/2023 COMPR EHENS CHAU METAB OLIC PANEL calcium 10.3 mg/dL 8.4-10 .2 high Not Available [facility] (Lab) [address] [place], [address], 07/12/2023 14:23:28 07/12/19 24 07/12/2023 COMPR EHENS CHAU METAB OLIC PANEL total protein 7.2 g/dL 6.3-8. 2 Not Available [facility] (Lab) [address] [place], [address], 07/12/2023 14:23:28 07/12/19 24 07/12/2023 COMPR EHENS CHAU METAB OLIC PANEL albumin 4.4 g/dL 3.0-4. 4 Not Available [facility] (Lab) [address] [place], [address], 07/12/2023 14:23:28 07/12/19 24 07/12/2023 COMPR EHENS CHAU METAB OLIC PANEL globulin 2.8 g/dL 2.6-4. 2 Not Available [facility] (Lab) [address] [place], [address], 07/12/2023 14:23:28 07/12/19 24 07/12/2023 COMPR EHENS CHAU METAB OLIC PANEL A/G ratio 1.6 ratio 1.0-2. 0 Not Available [facility] (Lab) [address] [place], [address], 07/12/2023 14:23:28 07/12/19 24 07/12/2023 T4 FREE free T4 1.31 NG/dL 0.78-2 .19 Not Available [facility] (Lab) [address] [place], [address], 07/12/2023 14:38:45 07/12/19 24 07/12/2023 VITAM IN D 25-HY DROXY [id number] 21.9 NG/mL 30-100 low Vitam in D Statu s: Defic ient: <20 ng/mL Insuf ficie nt: 20-29 ng/mL Suffi cient : 30-10 0 ng/mL Not Available [facility] (Lab) [address] [place], [address], 07/12/2023 14:39:06 07/12/19 24 07/12/2023 TSH thyroid-stim ulating hormone 11.600 uIU/m L 0.465- 4.680 high Not Available [facility] (Lab) [address] [place], [address], 07/12/2023 15:02:58 07/12/19 24 07/12/2023 MICRO ALBUM IN RANDO M URINE microalbumin , urine <6.0 mg/L 0.0-16 .6 Not Available [facility] (Lab) [address] [place], [address], 07/12/2023 15:43:34 07/12/19 24 07/12/2023 HEMOG LOBIN A1C HA1C 5.6 % 4.0-6. 0 Diabe shaun Scree efren Crite len: <5.7% Consi stent with absen ce of diabe shaun 5.7-6 .4% Consi stent with incre ased risk for diabe shaun (pred iabet es) >OR=6 .5% Consi stent with diabe shaun REFER ENCE: Diabe shaun Care 2016, 39(Enriquez ppl.1 ):s13 -s22 Not Available [facility] (Lab) [address] [place], [address], 07/12/2023 16:17:14 09/0910/16/2023 CBC/C OMPLE TE BLD COUNT W/DIF F white blood cells 5.0 x10'3 /uL 4.2-10 .8 Not Available [facility] (Lab) [address] [place], [address], 10/16/2023 13:12:37 10/16/19 24 10/16/2023 CBC/C OMPLE TE BLD COUNT W/DIF F red blood cells 4.71 x10'6 /uL 3.80-5 .20 Not Available [facility] (Lab) [address] [place], [address], 10/16/2023 13:12:37 10/16/19 24 10/16/2023 CBC/C OMPLE TE BLD COUNT W/DIF F hemoglobin 13.2 g/dL 12.0-1 5.6 Not Available [facility] (Lab) [address] [place], [address], 10/16/2023 13:12:37 10/16/19 24 10/16/2023 CBC/C OMPLE TE BLD COUNT W/DIF F hematocrit 41.1 % 35.7-4 5.7 Not Available [facility] (Lab) [address] [place], [address], 10/16/2023 13:12:37 10/16/19 24 10/16/2023 CBC/C OMPLE TE BLD COUNT W/DIF F mean red cell volume 87.3 fL 82.0-9 9.0 Not Available [facility] (Lab) [address] [place], [address], 10/16/2023 13:12:37 10/16/19 24 10/16/2023 CBC/C OMPLE TE BLD COUNT W/DIF F mean red cell hemoglobin 28.0 pg 27.0-3 3.0 Not Available [facility] (Lab) [address] [place], [address], 10/16/2023 13:12:37 10/16/19 24 10/16/2023 CBC/C OMPLE TE BLD COUNT W/DIF F mean RBC HGB concentratio n 32.1 g/dL 31.0-3 6.0 Not Available [facility] (Lab) [address] [place], [address], 10/16/2023 13:12:37 10/16/19 24 10/16/2023 CBC/C OMPLE TE BLD COUNT W/DIF F red cell distribution width 14.8 % 11.8-1 5.5 Not Available [facility] (Lab) [address] [place], [address], 10/16/2023 13:12:37 10/16/19 24 10/16/2023 CBC/C OMPLE TE BLD COUNT W/DIF F platelets 300 x10'3 /uL 150-40 0 Not Available [facility] (Lab) [address] [place], [address], 10/16/2023 13:12:37 10/16/19 24 10/16/2023 CBC/C OMPLE TE BLD COUNT W/DIF F mean platelet volume 10.7 fL 9.0-12 .4 Not Available [facility] (Lab) [address] [place], [address], 10/16/2023 13:12:37 10/16/19 24 10/16/2023 CBC/C OMPLE TE BLD COUNT W/DIF F neutrophils 57.8 % 39.0-7 2.0 Not Available [facility] (Lab) [address] [place], [address], 10/16/2023 13:12:37 10/16/19 24 10/16/2023 CBC/C OMPLE TE BLD COUNT W/DIF F lymphocytes 21.2 % 16.0-4 7.0 Not Available [facility] (Lab) [address] [place], [address], 10/16/2023 13:12:37 10/16/19 24 10/16/2023 CBC/C OMPLE TE BLD COUNT W/DIF F monocytes 9.8 % 5.0-12 .0 Not Available [facility] (Lab) [address] [place], [address], 10/16/2023 13:12:37 10/16/19 24 10/16/2023 CBC/C OMPLE TE BLD COUNT W/DIF F eosinophils 9.8 % 1.0-7. 0 high Not Available [facility] (Lab) [address] [place], [address], 10/16/2023 13:12:37 10/16/19 24 10/16/2023 CBC/C OMPLE TE BLD COUNT W/DIF F basophils 1.0 % 0.0-2. 0 Not Available [facility] (Lab) [address] [place], [address], 10/16/2023 13:12:37 10/16/19 24 10/16/2023 CBC/C OMPLE TE BLD COUNT W/DIF F immature granulocytes 0.4 % 0.00-0 .50 Not Available [facility] (Lab) [address] [place], [address], 10/16/2023 13:12:37 10/16/19 24 10/16/2023 CBC/C OMPLE TE BLD COUNT W/DIF F neutrophils, absolute count 2.89 x10'3 /uL 1.5-8. 0 Not Available [facility] (Lab) [address] [place], [address], 10/16/2023 13:12:37 10/16/19 24 10/16/2023 CBC/C OMPLE TE BLD COUNT W/DIF F lymphocytes, absolute count 1.06 x10'3 /uL 1.07-3 .43 low Not Available [facility] (Lab) [address] [place], [address], 10/16/2023 13:12:37 10/16/19 24 10/16/2023 CBC/C OMPLE TE BLD COUNT W/DIF F monocytes, absolute count 0.49 x10'3 /uL 0.29-0 .99 Not Available [facility] (Lab) [address] [place], [address], 10/16/2023 13:12:37 10/16/19 24 10/16/2023 CBC/C OMPLE TE BLD COUNT W/DIF F eosinophils, absolute count 0.49 x10'3 /uL 0.02-0 .53 Not Available [facility] (Lab) [address] [place], [address], 10/16/2023 13:12:37 10/16/19 24 10/16/2023 CBC/C OMPLE TE BLD COUNT W/DIF F basophils, absolute count 0.05 x10'3 /uL 0.01-0 .08 Not Available [facility] (Lab) [address] [place], [address], 10/16/2023 13:12:37 10/16/19 24 10/16/2023 CBC/C OMPLE TE BLD COUNT W/DIF F immature granulocytes ,absolute 0.02 x10'3 /uL 0.00-0 .05 Not Available [facility] (Lab) [address] [place], [address], 10/16/2023 13:12:37 10/16/19 24 10/16/2023 CBC/C OMPLE TE BLD COUNT W/DIF F nucleated red blood cells 0.0 % -0 Not Available [facility] (Lab) [address] [place], [address], 10/16/2023 13:12:37 10/16/19 24 10/16/2023 CBC/C OMPLE TE BLD COUNT W/DIF F NRBC# 0.00 x10'3 /uL Not Available [facility] (Lab) [address] [place], [address], 10/16/2023 13:12:37 10/16/19 24 10/16/2023 COMPR EHENS CHAU METAB OLIC PANEL sodium 137 mmol/ L 137-14 5 Not Available [facility] (Lab) [address] [place], [address], 10/16/2023 13:35:13 10/16/19 24 10/16/2023 COMPR EHENS CAHU METAB OLIC PANEL potassium 4.6 mmol/ L 3.5-5. 1 Not Available [facility] (Lab) [address] [place], [address], 10/16/2023 13:35:13 10/16/19 24 10/16/2023 COMPR EHENS CHAU METAB OLIC PANEL chloride 105 mmol/ L 98-107 Not Available [facility] (Lab) [address] [place], [address], 10/16/2023 13:35:13 10/16/19 24 10/16/2023 COMPR EHENS CHAU METAB OLIC PANEL carbon dioxide 27 mmol/ L 22-30 Not Available [facility] (Lab) [address] [place], [address], 10/16/2023 13:35:13 10/16/19 24 10/16/2023 COMPR EHENS CHAU METAB OLIC PANEL anion gap 9.6 mmol/ L 14-22 low Not Available [facility] (Lab) [address] [place], [address], 10/16/2023 13:35:13 10/16/19 24 10/16/2023 COMPR EHENS CHAU METAB OLIC PANEL glucose 135 mg/dL 70-99 high Not Available [facility] (Lab) [address] [place], [address], 10/16/2023 13:35:13 10/16/19 24 10/16/2023 COMPR EHENS CHAU METAB OLIC PANEL BUN 16 mg/dL 8-19 Not Available [facility] (Lab) [address] [place], [address], 10/16/2023 13:35:13 10/16/19 24 10/16/2023 COMPR EHENS CHAU METAB OLIC PANEL creatinine 0.65 mg/dL 0.66-1 .25 low Not Available [facility] (Lab) [address] [place], [address], 10/16/2023 13:35:13 10/16/19 24 10/16/2023 COMPR EHENS CHAU METAB OLIC PANEL GFR >60 Refer ence Range : [place] GFR Healt hy Adult : >60 [...] or ethni c subgr oups, such as mo nics. Outsi de the valid ated liz [...] calcu lator is avail able on the [facility] websi te: https :[email or web address] w.[email or web address] [email or web address] rg/pr ofess ional s/kdo qi/gf r_cal culat or Not Available [facility] (Lab) [address] [place], [address], 10/16/2023 13:35:13 10/16/19 24 10/16/2023 COMPR EHENS CHAU METAB OLIC PANEL alkaline phosphatase 92 U/L 38-126 Not Available [facility] (Lab) [address] [place], [address], 10/16/2023 13:35:13 10/16/19 24 10/16/2023 COMPR EHENS CHAU METAB OLIC PANEL alanine aminotransfe rase 29 U/L 0-35 Not Available [facility] (Lab) [address] [place], [address], 10/16/2023 13:35:13 10/16/19 24 10/16/2023 COMPR EHENS CHAU METAB OLIC PANEL aspartate aminotransfe rase 25 U/L 15-37 Not Available [facility] (Lab) [address] [place], [address], 10/16/2023 13:35:13 10/16/19 24 10/16/2023 COMPR EHENS CHAU METAB OLIC PANEL bilirubin, total 0.70 mg/dL 0.20-1 .30 Not Available [facility] (Lab) [address] [place], [address], 10/16/2023 13:35:13 10/16/19 24 10/16/2023 COMPR EHENS CHAU METAB OLIC PANEL calcium 10.8 mg/dL 8.4-10 .2 high Not Available [facility] (Lab) [address] [place], [address], 10/16/2023 13:35:13 10/16/19 24 10/16/2023 COMPR EHENS CHAU METAB OLIC PANEL total protein 7.6 g/dL 6.3-8. 2 Not Available [facility] (Lab) [address] [place], [address], 10/16/2023 13:35:13 10/16/19 24 10/16/2023 COMPR EHENS CHAU METAB OLIC PANEL albumin 4.5 g/dL 3.0-4. 4 high Not Available [facility] (Lab) [address] [place], [address], 10/16/2023 13:35:13 10/16/19 24 10/16/2023 COMPR EHENS CHAU METAB OLIC PANEL globulin 3.1 g/dL 2.6-4. 2 Not Available [facility] (Lab) [address] [place], [address], 10/16/2023 13:35:13 10/16/19 24 10/16/2023 COMPR EHENS CHAU METAB OLIC PANEL A/G ratio 1.5 ratio 1.0-2. 0 Not Available [facility] (Lab) [address] [place], [address], 10/16/2023 13:35:13 10/16/19 24 10/16/2023 LIPID PANEL cholesterol 201 mg/dL 140-19 9 high NIH MATEUS NSUS RECOM MENDA TION FOR SAEED STERO L: ADULT CHILD LOW RISK: <200 <170 BORDE RLINE : <200- 239 ----- HIGH RISK: >240 >200 Not Available [facility] (Lab) [address] [place], [address], 10/16/2023 13:35:43 10/16/1910/16/2023 LIPID PANEL triglyceride s 189 mg/dL 0-150 high NIH MATEUS NSUS REPOR T RECOM MENDA TION FOR TRIGL YCERI DAVID: ADULT CHILD LOW RISK: <150 ----- BODER LINE: 150-1 99 ----- HIGH RISK: >200 ----- Not Available [facility] (Lab) [address] [place], [address], 10/16/2023 13:35:43 10/16/1910/1510/16/2023 LIPID PANEL HDL cholesterol 43 mg/dL 40- Not Available [facility] (Lab) [address] [place], [address], 10/16/2023 13:35:43 10/16/19 24 10/16/2023 LIPID PANEL [...] WILL NOT BE REPOR MIHIR. Not Available [facility] (Lab) [address] [place], [address], 10/16/2023 13:35:43 10/16/19 24 10/16/2023 T4 FREE free T4 1.64 NG/dL 0.78-2 .19 Not Available [facility] (Lab) [address] [place], [address], 10/16/2023 13:39:42 10/16/19 24 10/16/2023 TSH thyroid-stim ulating hormone 3.940 uIU/m L 0.465- 4.680 Not Available [facility] (Lab) [address] [place], [address], 10/16/2023 13:53:31 10/16/1910/16/2023 HEMOG LOBIN A1C HA1C 6.0 % 4.0-6. 0 Diabe shaun Scree efren Crite len: <5.7% Consi stent with absen ce of diabe shaun 5.7-6 .4% Consi stent with incre ased risk for diabe shaun (pred iabet es) >OR=6 .5% Consi stent with diabe shaun REFER ENCE: Diabe shaun Care 2016, 39(Enriquez ppl.1 ):s13 -s22 Not Available [facility] (Lab) [address] [place], [address], 10/16/2023 16:10:26 10/16/19 24 10/16/2023 MICRO ALBUM IN RANDO M URINE microalbumin , urine 10.9 mg/L 0.0-16 .6 Not Available [facility] (Lab) [address] [place], [address], 10/16/2023 18:01:47 10/16/19 24 10/16/2023 VITAM IN D 25-HY DROXY [id number] 21.1 NG/mL 30-100 low Vitam in D Statu s: Defic ient: <20 ng/mL Insuf ficie nt: 20-29 ng/mL Suffi cient : 30-10 0 ng/mL Not Available [facility] (Lab) [address] [place], [address], 10/16/2023 22:36:15 03/21/19 24 03/21/2023 US, echo ardio gram No observ ation record ed. [address] [facility] [address], [place], [address], 10/16/2023 18:16:08 07/07/19 24 07/07/2023 CT, angio gram, head + neck, w/wo contr ast No observ ation record ed. [email or web address] [place] [address] [address], [place], [address], 10/18/2023 11:53:31 08/21/19 24 MAMMO , scree efren, digit al, bilat eral [facility] [address] [place] [address] [phone] Patien t Name: OHA MART Access ion #: [id number] Sex: F : 1945 1 Dictat ed By: Trixie Hernandez Attend ing Physic tamiko: VINICIUSMORENA GALVEZ Orderi ng Physic tamiko: VINICIUSMORENA GALVEZ Exam Date: 2023 10:50 AM Exam Name: MG BLANKA Valladares JOSE BILAT SCREEN Admitt ing Diagno sis(es [...] at 2023 12:04: 28 PM Page 1 [email or web address] [facility] [address] [place], [address], 09/08/2023 15:47:35 10/30/19 24 10/30/2023 CT, angio gram, chest + abdom en + pelvi s, w/ contr ast No observ ation record ed. [email or web address] [facility] [address] [place], [address], 02/05/2024 14:19:23 05/07/19 25 05/06/2024 [place], thyro id No observ ation record ed. [address] [place] [address], [address], 05/06/2024 17:41:50 Result Notes None recorded. Problems Name Problem SNOMED Code Status Onset Date Resolution Date Notes Provider Name and Address Organization Details Recorded Time Non-alcoh olic fatty liver 801885944 Active 2021 Not Available [facility] 3 08:15:39 Hypolipid emia 831518198 Completed 201702/20/2017 Not Available [facility] 3 06:02:36 Vitamin D deficienc y 49538291 Active 2021 Not Available [facility] 3 08:15:39 Iron deficienc y 74361903 Active 2017 Not Available [facility] 3 08:15:39 Hypertens chau disorder 22571537 Active 2017 Not Available [facility] 3 08:15:39 Vertigo 457932700 Active 2021 Not Available [facility] 3 08:15:39 Hypothyro idism 53474901 Active 2017 Not Available [facility] 3 08:15:39 Aneurysm of thoracic aorta 745300306 Active 2021 Not Available [facility] 3 08:15:39 Pain of hip region 95517706 Active Not Available [facility] 3 08:15:39 Hyperlipi demia 91000402 Active 2017 Not Available [facility] 3 08:15:39 Dyspnea on exertion 82191002 Active 2022 Not Available [facility] 3 08:15:39 Hydrouret er 39608342 Active 2021 Not Available [facility] 3 08:15:39 Liver enzymes level above reference range 720748115 Active 2021 Not Available [facility] 3 08:15:39 Chronic kidney disease 065507647 Active 2021 Not Available [facility] 3 08:15:39 Sleep apnea 64676657 Active 2022 Not Available [facility] 3 08:15:39 Obstructi ve sleep apnea syndrome 41873249 Active 2022 Not Available [facility] 3 08:15:39 Hyperglyc emia 20241285 Active 2021 Not Available [facility] 3 08:15:39 COVID-19 873427276 Active 2021 Not Available [facility] 3 08:15:39 Pulmonary emphysema 35960513 Active 2021 Not Available [facility] 3 08:15:39 Secondary pulmonary hypertens ion 16494023 Active 2022 Not Available [facility] 3 08:15:39 Hypoxia 808769933 Active 2022 Not Available [facility] 3 08:15:39 Alpha-1-a ntitrypsi n deficienc y 20081555 Active 2022 Not Available [facility] 3 08:15:39 Anemia 783677459 Active 2022 Not Available [facility] 3 08:15:39 Essential hypertens ion 04451592 Active 2022 Not Available [facility] 3 08:15:39 Chronic obstructi ve pulmonary disease 58577080 Active 2022 Not Available [facility] 3 08:15:39 Skin lesion 67480620 Active 2022 Not Available [employer] 3 08:15:39 Increased liver function 67003777 Active 2022 Not Available [facility] 3 08:15:39 Type 2 diabetes mellitus without complicat ion 022801700 Active 2022 Not Available [facility] 3 08:15:39 Asthma 955274001 Active 2022 Not Available [facility] 3 08:15:39 Hypercalc emia 27573283 Active 2022 Not Available [facility] 3 08:15:39 Cobalamin deficienc y 021108309 Active 2022 Lashon lauren, [facility] [employer] [facility] 3 15:52:24 Bleeding from nose 139353004 Active 2023 Sanjuanita talamantes MD [address] [facility], [address] [place] [address], [place], [address] , [facility] 4 10:53:56 Pain of right hip joint 50295012162 9102 Active 2023 Sanjuanita talamantes MD [address], [place], [address] , [employer] [facility] [employer] [facility] 4 11:25:29 Moderate recurrent major depressio n 98957437 Active 2023 Sanjuanita talamantes MD [address], [place], [address] , [facility] [employer] [facility] [employer] [facility] 4 11:26:04 Diabetes mellitus 38230493 Active 2024 Wilma Benites MA null, [employer] [facility] [employer] [facility] 5 13:27:40 Notes:[facility] home sleep study 03/15/22 AHI = 4 [facility] diagnostic sleep study 06/29/22 AHI = 9, [...] Name and Address Organization Details Recorded Time 01/17/20 24 total replacement of hip completed Brandi Gifford MA [place] [employer] 05/29/2024 11:36:27 07/19/19 24 Medicare Wellness CPT Code, subsequent completed Deven Stacy LPN [facility] [employer] [facility] 07/17/2023 18:32:38 07/19/19 24 Advanced Care Planning completed Deven Stacy LPN [place] [employer] [facility] [employer] [facility] 07/19/2023 11:12:06 04/28/19 23 Medicare Wellness CPT Code, subsequent completed Adele Valencia RN [facility] [employer] [facility] 04/27/2022 11:20:50 04/28/19 23 Advanced Care Planning completed Adele Valencia RN [facility] [employer] [facility] 04/27/2022 11:23:21 01/01/20 20 excision of skin carcinoma completed Not Available [facility] 04/06/2022 05:56:38 10/22/19 17 Ther radiology tx plng smpl completed Not Available [facility] 04/06/2022 05:56:38 09/18/19 13 Stent placemt retro carotid completed Not Available [facility] 04/06/2022 05:56:38 02/17/19 11 Cholecystectomy completed Not Available [facility] 04/06/2022 05:56:38 Nipple/areola reconstruction completed Not Available [facility] 04/06/2022 05:56:38 excision of skin carcinoma completed Not Available [facility] 04/06/2022 05:56:38 Skin Graft completed Not Available [facility] 04/06/2022 05:56:38 Colonoscopy completed Not Available [facility] 04/06/2022 05:56:38 Hysterectomy completed Not Available [facility] 04/06/2022 05:56:38 Appendectomy completed Not Available [facility] 04/06/2022 05:56:38 EGD completed Not Available [facility] 04/06/2022 05:56:38 Imaging Results Imaging Date Name Status LastModified by Organization Details LastModified Time 03/21/2023 US, echocardiogram completed [email or web address] [facility] [address], [place], [address], 10/16/2023 18:16:08 07/07/2023 CT, angiogram, head + neck, w/wo contrast completed [address] [facility] [address] [place] [address], [address], 10/18/2023 11:53:31 08/21/2023 MAMMO, screening, digital, bilateral completed [facility] (Imaging) [address] [place], [address], 09/08/2023 15:47:35 10/30/2023 CT, angiogram, chest + abdomen + pelvis, w/ contrast active [email or web address] [facility] [address] [place], [address], 02/05/2024 14:19:23 05/06/2024 US, thyroid active [facility] [address], [place], [address], 05/06/2024 17:41:50 Procedure Notes None recorded. Medical Equipment None Reported. Allergies Allergen ID Allergen Name Allergen Category Reaction Reaction Severity Criticality Documentation Date Start Date Code Code System Note Provider Name and Address Organization Details Recorded Time 68639 Non-stero idal anti-infl ammatory agent (product) medicatio n nausea severe Not available 04/06/2022 30219 005 SNOMED Not Available [facility] 3 06:09:23 17275 Demerol medicatio n hallucina tions Not available Not available 04/06/2022 07766 1 RxNorm Not Available [facility] 3 06:09:23 82563 codeine medicatio n itching Not available Not available 04/06/2022 2670 RxNorm Not Available [facility] 3 06:09:23 Medications Name Sig Start Date [...] Not Available carvedilo l 6.25 mg tablet TAKE 1 TABLET BY MOUTH TWICE DAILY active Not Available Not Available No t Available doxycycli ne hyclate 100 mg capsule TAKE [...] Not Available Ferrex 150 mg iron capsule TAKE 1 CAPSULE BY MOUTH TWICE DAILY active Not Available Not Available No t Available aspirin 81 mg tablet,de layed release Take 1 tablet every day by oral route. 05/19 completed Not Available Not Available Not Available tramadol 50 mg tablet TAKE 1 TABLET BY MOUTH EVERY 6 HOURS NEEDED FOR PAIN 05/29 completed Not Available Not Available Not Available simvastat in 40 mg tablet Take 1 tablet by mouth once daily 03/17 completed Not Available Not Available Not Available ondansetr on 8 mg disintegr ating tablet DISSOLVE 1 TABLET BY MOUTH EVERY 8 HOURS NEEDED 05/19 completed Not Available Not Available Not Available pantopraz ole 20 mg tablet,de layed release TAKE 1 TABLET BY MOUTH ONCE DAILY FOR GI PROTECTI ON WHILE TAKING MELOXICA M. 05/29 completed Not Available Not Available Not Available cefadroxi l 500 mg capsule TAKE 1 CAPSULE BY MOUTH TWICE DAILY FOR 7 DAYS 05/29 completed Not Available Not Available Not Available meloxicam 7.5 mg tablet TAKE 1 TABLET BY MOUTH ONCE DAILY 05/29 completed Not Available Not Available Not Available levothyro xine 100 mcg tablet TAKE [...] TAKE 1 TABLET BY MOUTH TWICE DAILY 05/29 completed Not Available Not Available Not Available meclizine 25 mg tablet TAKE 1 [...] No t Available Unithroid 150 mcg tablet TAKE 1 TABLET BY MOUTH ONCE DAILY active Not Available Not Available No t Available hydrochlo rothiazid e 12.5 mg capsule TAKE 1 CAPSULE BY MOUTH ONCE DAILY 05/29 completed Not Available Not Available Not Available sertralin e 25 mg tablet Take 1 tablet every day by oral route for 90 days. 2024 active Not Available Not Available Not Avai lable mupirocin 2 % topical ointment APPLY TOPICALL Y TWICE DAILY FOR 5 DAYS. APPLY TO NOSTRILS TWICE A DAY STARTING 5 DAYS PRIOR TO SURGERY. active Not Available Not Available No t Available ergocalci ferol (vitamin D2) 1,250 mcg [...] tablet DISSOLVE 1 TABLET IN MOUTH EVERY 8 HOURS NEEDED FOR NAUSEA OR FOR VOMITING 05/29 completed Not Available Not Available Not Available [...] MOUTH EVERY 4 HOURS NEEDED FOR PAIN 05/29 completed Not Available Not Available Not Available [...] (vitamin D3) 1,250 mcg (50,000 unit) capsule Take 1 capsule every week by oral route for 60 days. 2024 active Not Available Not Available Not Avai lable diclofena c 1 % topical gel APPLY [...] pitavast atin. Valid: 05/02/23 until futher notice. MT# [id number] 335. Not Available Not Available Not Available Contour Next Test Strips USE 1 STRIP TO CHECK GLUCOSE ONCE DAILY active Not Available Not Available No t Available cyanocoba samara (vit B-12) 1,000 mcg/mL injection kit Inject 1 mL every month by intramus cular route. 10/21 completed Not Available Not Available Not Available Fluzone High-Dose 2019-20 (PF) 180 mcg/0.5 mL intramusc ular syringe PHARMACI ST ADMINIST ERED IMMUNIZA TION ADMINIST ERED AT TIME OF DISPENSI NG 12/10 completed Not Available Not Available Not Available Fluzone High-Dose Quad 2019- (PF) 240 mcg/0.7 mL IM syringe PHARMACI [...] Updated DateTime 4 157.48 cm 33.7 kg/m2 57597 g 97.2 [degF] 72 /min 124 mm[Hg] 80 mm[Hg] Rain Gill Mahi [employer] [facility] [employer] [facility] 4 09:47:31 Date Recorded Body height Body mass index (BMI) Body weight Body temperature Systolic blood pressure Diastolic blood pressure Provider Name and Address Organization Details Last Updated DateTime 4 157.48 cm 34.4 kg/m2 75291.3 7 g 97.2 [degF] 126 mm[Hg] 78 mm[Hg] Rain Gill Mahi [employer] [facility] [employer] 4 10:42:51 Date Recorded Pain severity - 0-10 verbal numeric rating [Score] - Reported Provider Name and Address Organization Details Last Updated DateTime 07/19/2023 0 Deven Stacy LPN [facility] [employer] 07/19/2023 11:08:25 Date Recorded Body height Body mass index (BMI) Body weight Body temperature Heart rate Oxygen saturation Oxygen saturation in Arterial blood by Pulse oximetry Pain severity - 0-10 verbal numeric rating [Score] - Reported Systolic blood pressure Diastolic blood pressure Provider Name and Address Organization Details Last Updated DateTime 4 157.48 cm 34.4 kg/m2 22062.3 7 g 97.8 [degF] 82 /min 91 % 91 % 0 142 mm[Hg] 80 mm[Hg] Deven Stacy LPN [employer] [facility] [employer] 4 10:37:44 Date Recorded Body height Body mass index (BMI) Body weight Body temperature Heart rate Oxygen saturation Oxygen saturation in Arterial blood by Pulse oximetry Systolic blood pressure Diastolic blood pressure Provider Name and Address Organization Details Last Updated DateTime 5 157.48 cm 34.8 kg/m2 32644.5 5 g 98.4 [degF] 64 /min 94 % 94 % 140 mm[Hg] 84 mm[Hg] Brandi Gifford MA [place] - [facility] [employer] 5 11:32:54 Social History Question Answer Notes LastModified by Organization Details LastModified Time Tobacco Smoking Status Former Smoker Not Available [facility] 04/06/2022 05:54:10 Do You Have An Advance Directive? No Information Provided Information not available 04/27/2022 What Is Your Level Of Alcohol Consumption? None MIGRATION.050 [id number] Information not available 04/06/2022 Are You Blind Or Do You Have Difficulty Seeing? No MIGRATION.549 [id number] Information not available 04/06/2022 Is Blood Transfusion Acceptable In An Emergency? Yes [email or web address] Information not available 07/19/2023 What Is Your Level Of Caffeine Consumption? Moderate MIGRATION.152 [id number] Information not available 04/06/2022 In The 14 Days Before Symptom Onset, Have You Had Close Contact With A Laboratory-conf irmed COVID-19 While That Case Was Ill? No MIGRATION.625 [id number] Information not available 04/06/2022 In The 14 Days Before Symptom Onset, Have You Had Close Contact With A Person Who Is Under Investigation For COVID-19 While That Person Was Ill? No MIGRATION.672 [id number] Information not available 04/06/2022 Are You Currently Employed? No Retired Information not available 07/19/2023 Are You Deaf Or Do You Have Serious Difficulty Hearing? No MIGRATION.295 [id number] Information not available 04/06/2022 What Type Of Diet Are You Following? DIABETIC Information not available 04/27/2022 What Is The Highest Grade Or Level Of School You Have Completed Or The Highest Degree You Have Received? [id number] MIGRATION.767 [id number] Information not available 04/06/2022 Have There Been Any Changes To Your Family Or Social Situation? No MIGRATION.251 5855977 Information not available 04/06/2022 What Is The Fluoride Status Of Your Home? Fluoridated MIGRATION.731 [id number] Information not available 04/06/2022 When Did You Quit Smoking? 1-5yearssincelastc igarette 03/09/21 MIGRATION.038 [id number] Information not available 04/06/2022 Are There Any Guns Present In Your Home? No MIGRATION.579 [id number] Information not available 04/06/2022 Do You Use Insect Repellent Routinely? No MIGRATION.015 [id number] Information not available 04/06/2022 Where Do You Live? SingleLevelHouse MIGRATION.841 7277701 Information not available 04/06/2022 Presence Of Domestic [...] 04/27/2022 Live Alone Of With Others? Alone [email or web address] Information not available 04/27/2022 Do You Have A Medical Power Of Silk Folder? No MIGRATION.153 8376014 Information not available 04/06/2022 What Was The Date Of Your Most Recent Tobacco Screening? 05/29/2024 [email or web address] Information not available 05/29/2024 Do You Have Any Pets? No MIGRATION.068 8436016 Information not available 04/06/2022 What Is Your Relationship Status? MIGRATION.231 1059988 Information not available 04/06/2022 Do You Use Your Seat Belt Or Car Seat Routinely? Yes MIGRATION.197 9728411 Information not available 04/06/2022 Do You Have Smoke And Carbon Monoxide Detectors In Your Home? Yes MIGRATION.009 8196266 Information not available 04/06/2022 At What Age Did You Start Smoking Tobacco? 26 MIGRATION.201 2642326 Information not available 04/06/2022 Are You Passively Exposed To Smoke? No MIGRATION.619 [id number] Information not available 04/06/2022 Are There Any Smokers In Your House? No MIGRATION.022 0192057 Information not available 04/06/2022 Do You Feel Stressed (tense, Restless, Nervous, Or Anxious, Or Unable To Sleep At Night)? [id number] MIGRATION.299 6713669 Information not available 04/06/2022 Do You Use Any Illicit Or Recreational Drugs? No MIGRATION.766 4065364 Information not available 04/06/2022 Do You Use Sunscreen Routinely? No MIGRATION.007 5560820 Information not available 04/06/2022 Has Tobacco Cessation Counseling Been Provided? No MIGRATION.711 0913051 Information not available 04/06/2022 How Many Years Have You Smoked Tobacco? 50 MIGRATION.560 6793917 Information not available 04/06/2022 Have You Recently Traveled Abroad? No MIGRATION.605 2960378 Information not available 04/06/2022 Do You Have Any Dietary Restrictions? No MIGRATION.994 6235028 Information not available 04/06/2022 Do You Or Have You Ever Used Any Other Forms Of Tobacco Or Nicotine? No MIGRATION.649 6250934 Information not available 04/06/2022 Sex: Female Functional Status Question Answer Note LastModified by Organizat ion Details LastModified Time Do you have difficulty walking or climbing stairs? Yes MIGRATION.8785948 026 Information not available 04/06/2022 Do you have transportation difficulties? No MIGRATION.6470792 026 Information not available 04/06/2022 Are you able to walk? YESWOREST MIGRATION.9383639 026 Information not available 04/06/2022 Do you have difficulty doing errands alone? No MIGRATION.6103328 026 Information not available 04/06/2022 Are you able to care for yourself? Yes MIGRATION.9252236 026 Information not available 04/06/2022 Do you have difficulty dressing or bathing? No MIGRATION.6664549 026 Information not available 04/06/2022 What is your exercise level? None MIGRATION.4031652 026 Information not available 04/06/2022 Mental Status Question Answer Note LastModified by Organizat ion Details LastModified Time Do you have difficulty concentrating, remembering or making decisions? No MIGRATION.348843831 6 Information not available 04/06/2022 Family History Relationship Description Onset Age of this Age Resolved Age Notes LastModified by Organization Details LastModified Time Brother Aneurysm MIGRATION.922 [id number] Not available 04/06/2022 05:56:39 Brother Carcinoma of prostate MIGRATION.669 [id number] Not available 04/06/2022 05:56:39 Father Carcinoma of prostate MIGRATION.039 [id number] Not available 04/06/2022 05:56:39 Sister Hodgkin's disease (clinical) MIGRATION.307 [id number] Not available 04/06/2022 05:56:39 Mother Well adult MIGRATION.710 [id number] Not available 04/06/2022 05:56:40 Medical History Condition [...] ARTERY DISEASE (CAD) N ADDICTION CONCERNS N Impotence N ENDOMETRIOSIS N USE OF BLOOD THINNERS N SKIN [...] GLAUCOMA N FOOT PROBLEM N DIVERTICULITIS N SLEEP APNEA N CHICKENPOX N INFECTIOUS DISEASE N PROSTATE N HEART ARRHYTHMIA N INSOMNIA N HIGH CHOLESTEROL / HYPERLIPIDEMIA Y EYE PROBLEMS N HYPERTHYROIDISM N EDEMA N CHRONIC PAIN SYNDROME N HYPOTHYROIDISM Y CONSTIPATION N CAROTID BLOCKAGE N BACK / NECK PROBLEMS N ATHEROSCLEROSIS N BREAST PROBLEMS N DIALYSIS N ECZEMA N OSTEOPOROSIS N ARTHRITIS N APPENDICITIS N DIABETES, TYPE N BAD TEETH N ENT N HEARTBURN / REFLUX N AUTISM SPECTRUM DISORDER (ASD) N HEPATITIS / LIVER DISEASE N GOUT N SLEEP DISORDER N ALZHEIMER'S DISEASE N Brain Problems N DEMENTIA N HERPES N SEIZURES/EPILEPSY N HEADACHES/MIGRAINES N VASCULAR DISEASE N PACEMAKER N Blood Disorder N DIZZINESS Y HEART DISEASE/HEART PROBLEMS N KIDNEY DISEASE Y MULTIPLE SCLEROSIS N CANCER: SPECIFY Y CARDIAC ARRHYTHMIA N ATRIAL FIBRILLATION N Gall Stones N PULMONARY EMBOLISM N AUTOIMMUNE DISEASE N Gynecological HistoryNo gynecological history recorded. Obstetrics History GPAL:G 0 P 0 0 0 0 Immunizations Vaccine Type Date Status Note Provider Nam e and Address Organization Details Recorded Time Influenza, high-dose, quadrivalent, PF 3 completed MALIKA Barrera, [facility] [employer] [facility] [employer] 12/01/2022 15:53:55 Influenza, high-dose, quadrivalent, PF 0 completed MALIKA Wilkins null, [employer] [facility] 09/21/2023 15:05:54 COVID-19, mRNA, LNP-S, PF, 30 mcg/0.3 mL dose 1 completed Rain Gill RMA null, [facility] 09/21/2023 15:05:54 COVID-19, mRNA, LNP-S, PF, 30 mcg/0.3 mL dose 1 completed Rain Gill RMA null, [facility] 09/21/2023 15:05:54 COVID-19, mRNA, LNP-S, PF, 30 mcg/0.3 mL dose, talia-sucrose 2 completed Rain Gill RMA null, [facility] 09/21/2023 15:05:54 pneumococcal polysaccharide PPV23 6 completed Rain Gill RMA null, [facility] 09/21/2023 15:05:54 Tdap 3 completed Rain Gill RMA null, [facility] 09/21/2023 15:05:54 Influenza, high-dose, trivalent, PF 6 completed Rain Gill RMA null, [facility] 09/21/2023 15:05:54 Influenza, high-dose, trivalent, PF 9 completed Rain Gill RMA null, [facility] 09/21/2023 15:05:54 Influenza, high-dose, trivalent, PF 8 completed Rain Gill RMA null, [facility] 09/21/2023 15:05:54 Influenza, high-dose, trivalent, PF 7 completed Rain Gill RMA null, [facility] 09/21/2023 15:05:54 Influenza, split virus, trivalent, preservative 3 completed Rain Gill RMA null, [facility] 09/21/2023 15:05:54 Influenza, split virus, trivalent, preservative 5 completed Rain Gill RMA null, [facility] 09/21/2023 15:05:54 Influenza, split virus, quadrivalent, PF 1 completed Rain Gill RMA null, [facility] 09/21/2023 15:05:54 RSV, recombinant, protein subunit RSVpreF, adjuvant reconstituted, 0.5 mL, PF 4 completed Rain Gill RMA xin, [facility] 09/21/2023 15:06:18 COVID-19, mRNA, LNP-S, PF, 100 mcg/0.5mL dose or 50 mcg/0.25mL dose 1 completed Rain Gill RMA null, [facility] 09/21/2023 15:05:54 COVID-19, mRNA, LNP-S, PF, 100 mcg/0.5mL dose or 50 mcg/0.25mL dose 1 completed Rain Gill RMA null, [facility] 09/21/2023 15:05:54 Influenza, high-dose, trivalent, PF 9 completed Rain Gill RMA null, [facility] 09/21/2023 15:05:54 influenza, unspecified formulation 8 completed Not Available [facility] 08/22/2022 08:15:40 Influenza, high-dose, quadrivalent, PF 1 completed Rain Gill RMA null, [facility] 09/21/2023 15:05:54 Influenza, high-dose, trivalent, PF 0 completed Rain Gill RMA null, [facility] 09/21/2023 15:05:54 influenza, unspecified formulation 7 completed Not Available [facility] 08/22/2022 08:15:40 pneumococcal polysaccharide PPV23 7 completed Not Available [facility] 08/22/2022 08:15:40 Pneumococcal conjugate PCV 13 6 completed [facility] Available [facility] 08/22/2022 08:15:40 Influenza, high-dose, quadrivalent, PF 2 completed Not Available [facility] 08/22/2022 08:15:40 Past Encounters Encounter ID Performer Location Encounter Start Date Encounter Closed Date Diagnosis/Indication Diagnosis SNOMED-CT Code Diagnosis ICD10 Code Diagnosis Note [id number] [facility] Mayra hawkins [address] [place] [address] y , [place] [address] 10/21/2020 00:00:00 10/21/2020 12:03:09 [id number] [facility] Chalinovi christelle [address] [place] [address] [place] [address] 04/19/2021 00:00:00 04/19/2021 10:34:18 [id number] Sanjuanita talamantes MD [facility] Internal Med Chalinovi llcatherine [address] [place] [address] [place] [address] 05/19/2021 00:00:00 05/19/2021 12:09:16 [id number] Sanjuanita talamantes MD [facility] Internal Med Chalinovi lle [address] [place] [address] [place] [address] 09/22/2021 00:00:00 09/22/2021 12:42:46 [id number] Sanjuanita talamantes MD [facility] Internal Med Chalinovi lle [address] [place] [address] [place] [address] 01/05/2022 00:00:00 01/05/2022 12:59:39 [id number] [facility] Pul[facility] Ortiz [address] [place] [address] 03/08/2022 00:00:00 03/08/2022 19:20:14 [id number] LOVELY Davis [facility] Pulmonolo gy [place] [address] [place] [address] 04/20/2022 12:17:43 04/21/2022 08:51:46 Pulmonary emphysema 35804887 J43.[address] chest completed 01/2022FIN DINGS:No [...] IGGs, Quantifero n GOLD all normal Hypoxia 074699090 R09.02 Per home sleep studySix minute walk normal Sleep apnea 79067677 G47 .30 Home study with AHI 4Severe desaturati ons, 417 minutes with saturation s below 89%Check in lab study Alpha-1-an titrypsin deficiency 93547746 E88.01 Alpha1 MZ with level of 83Extensiv [...] levels in 3 months Secondary pulmonary hypertension 36661944 I27.21 PFT normalHypo ivan during home sleep studyOrder for in lab study as above [id number] Sanjuanita talamantes MD [facility] Internal Med Mayra hawkins [address] [facility] [place] [address] 04/27/2022 10:45:50 04/27/2022 11:52:52 Adult health examination 357305085 Z00.00 Screening for disorder 973197476 Z13.9 Screening - NAD 34034113 3 Z13.9 C-scope: Dr Judith waterman 10/02/17: [...] ing of the above Screening mammography 24 650426 Z12.31 Screening for osteoporosis 392737630 Z13.820 Vitamin D deficiency 347 61663 E55.9 Get on vit d weekly Hypothyroidism 63853753 E03.9 On euthyrox 137mcgs dailyDoes well Get labs Anemia 063176193 D64.[address] Alvarenga Essential hypertension 22971742 I10 On coreg 6.25mg dailyOn HCTZ 12.5mg daily Does wellGet labsShe did see Dr Martell [facility] Hyperlipidemia 73889901 E78.5 On ASAOn simvastati n 40mg daily Does well Get labs Chronic ob structive pulmonary disease 24858217 J44.9 Sees Joleen Gambino NPNow to get a in lab sleep study as per her history Hyperglycemia 88663392 R 73.9 On metformin 500mg po bidNeeds to diet and exerciseNe eds to do labs and see eye and foot Increased liver function 00156219 R94.5 US liver 12/27/21CT A/P 01/13/2022 CMP: LFTs WNL 04/18/2022 Should see GI hepatology , states that she did not do this the last time as she did not have the ride Hydroureter 48072798 N13 .4 S/p CT A/P 01/13/2022 Pulmonary emphysema 8743 3001 J43.9 Joleen Maki CLINICAL MASSAGE THERAPIST 04/20/2022 , next apt 07/20/2022 Aneurysm o f thoracic aorta 974256372 I71.[address] Martell [facility], as per note 04/27/2022 , TAA is 4.2cm, f/u in 6 months [id number] Joleen Mkai, [employer] Pulmonolo gy [place] [address] [place] [address] 07/20/2022 10:52:59 07/20/2022 11:49:23 Obstructive sleep apnea syndrome 46183750 G47.33 In lab study with AHI 9, [...] s for use, instructed on technique Hypoxia 948789892 R09.02 Per sleep studySix minute walk normalPAP as above Alpha-1-an titrypsin deficiency 54206939 E88.01 Alpha1 MZ with level of 83Extensiv [...] recheck in 6 months Secondary pulmonary hypertension 47379257 I27.21 PFT normalHypo ivan during in lab study and +OSATreatm ent as above Asthma 107394070 J45.90 9 PFT normalMeth acholine challenge positiveRA ST with several positivesI GE, IGGs, Quantifero n GOLD all normalDecl yenny maintenanc e medication [id number] Sanjuanita talamantes MD [facility] Mayra hawkins [address] [facility] [place] [address] 08/17/2022 10:08:33 08/17/2022 10:55:17 Screening - NAD 625529681 Z13.9 C-scope: Dr Judith waterman 10/02/17: Next [...] of the above Vitamin D deficiency 347 24300 E55.9 Get on vit d weekly Hypothyroidism 18444574 E03.9 On euthyrox 137mcgs dailyDoes well Get labs Anemia 809438901 D64.[address] Alvarenga Essential hypertension 24168162 I10 On coreg 6.25mg dailyOn HCTZ 12.5mg daily Does wellGet labsShe did see Dr Martell [facility] Hyperlipidemia 34745393 E78.5 On ASAOn simvastati n 40mg daily Does wellGet labs Chronic ob structive pulmonary disease 09760933 J44.9 Sees Joleen Gambino NPNow to get a in lab sleep study as per her history Hyperglycemia 59409004 R 73.9 On metformin 500mg po bidNeeds to diet and exerciseNe eds to do labs and see eye and foot MD Increased liver function 06123762 R94.5 US liver 12/27/21CT A/P 01/13/2022 CMP: LFTs WNL 04/18/2022 Should see GI hepatology , states that she did not do this the last time as she did not have the ride Hydroureter 74952669 N13 .4 S/p CT A/P 01/13/2022 Pulmonary emphysema 8743 3001 J43.9 Joleen Gambino CLINICAL MASSAGE THERAPIST Aneurysm o f thoracic aorta 157294388 I71.[address] Martell [facility], as per note 04/27/2022 , TAA is 4.2cm, f/u in 6 months Hypercalcemia 26683447 E 83.52 Will repeat the labs, declines any referrals, very mild corrected [id number] Joleen Gambino, [employer] [facility] Pulmonolo [facility] [place] [address] [place] [address] 09/14/2022 10:06:30 09/14/2022 10:54:21 Obstructive sleep apnea syndrome 44248976 G47.33 In lab study with AHI 9, [...] 30 days use, PRN for concerns Asthma 825756233 J45.90 9 PFT normalMeth acholine challenge positiveRA ST with several positivesI GE, IGGs, Quantifero n GOLD all normalDecl yenny maintenanc e medication Alpha-1-an titrypsin deficiency 47480979 E88.01 Alpha1 MZ with level of 83Extensiv [...] level 84 - recheck in 6 months [id number] Joleen Gambino, [facility] Pulmonolo gy [place] [address] [place] [address] 11/08/2022 09:23:22 11/08/2022 11:09:57 Obstructive sleep apnea syndrome 44189129 G47.33 In lab study with AHI 9, [...] least 4 hours prior to bedtime. Asthma 359067408 J45.90 9 PFT 04/2022 normalMeth acholine challenge 05/[address] with several positivesI GE, IGGs, Quantifero n GOLD all normalDecl yenny maintenanc e medication Will send for symbicort for rescue use as per new guidelines Alpha-1-an titrypsin deficiency 21638725 E88.01 Alpha1 MZ with level of 83Extensiv [...] has been seen in MZ population s. [id number] Sanjuanita talamantes MD [facility] [address] [place] [address] 11/23/2022 10:07:16 11/23/2022 11:43:21 Screening - NAD 004669286 Z13.9 C-scope: Dr Judith waterman 10/02/17: Next [...] of the above Vitamin D deficiency 347 94158 E55.9 Get on vit d weekly Hypothyroidism 29387228 E03.9 On euthyrox 137mcgs dailyDoes well Get labs Anemia 991041263 D64.9 Does well Did see Dr Alvarenga Essential hypertension 17741915 I10 On coreg 6.25mg dailyOn HCTZ 12.5mg daily Does wellGet labsShe did see Dr Martell [facility] Hyperlipidemia 80235973 E78.5 On ASAOn simvastati n 40mg daily Does wellGet labs Chronic ob structive pulmonary disease 04128344 J44.9 Sees Joleen Gambino NPNow to get a in lab sleep study as per her history Hyperglycemia 01594900 R 73.9 On metformin 500mg po bid Needs to diet and exerciseNe eds to do labs and see eye and foot MD Increased liver function 49057034 R94.5 US liver 12/27/21CT A/P 01/13/2022 CMP: LFTs WNL 04/18/2022 Should see GI hepatology , states that she did not do this the last time as she did not have the ride Hydroureter 34762831 N13 .4 S/p CT A/P 01/13/2022 Pulmonary emphysema 8743 3001 J43.9 Joleen Gambino CLINICAL MASSAGE THERAPIST, 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 Aneurysm o f thoracic aorta 800731174 I71.[address] Martell [facility], as per note 04/27/2022 , TAA is 4.2cm, f/u in 6 months Hypercalcemia 94028447 E 83.[address] Duran, may need to see ENT also [id number] Sanjuanita talamantes MD [facility] Internal [facility] [place] haw[facility] [address] [place] [address] 03/22/2023 09:38:27 03/22/2023 10:02:07 Screening - NAD 022978500 Z13.9 C-scope: Dr Judith waterman 10/02/17: Next [...] of the above Vitamin D deficiency 347 34198 E55.9 Repeat the vit d level Hypothyroidism 04320409 E03.9 On euthyrox 137mcgs dailyDoes well Get labs Anemia 884820141 D64.9 Does well Did see Dr Alvarenga Essential hypertension 83754559 I10 On coreg 6.25mg dailyOn HCTZ 12.5mg daily Does wellGet labsShe did see Dr Jasbir CASIANO Hyperlipidemia 17499989 E78.5 On ASANot on simvastati n 40mg dailyOn atorvastat in 40mg daily Does wellGet labs Chronic ob structive pulmonary disease 00683260 J44.9 Seen Joleen Gambino NPNow to get a in lab sleep study as per her history Hyperglycemia 66451968 R 73.9 On metformin 500mg po bid Needs to diet and exerciseNe eds to do labs and see eye and foot Increased liver function 12364533 R94.5 US liver 12/27/21CT A/P 01/13/2022 CMP: LFTs WNL 04/18/2022 Should see GI hepatology , states that she did not do this the last time as she did not have the ride Hydroureter 73239070 N13 .4 S/p CT A/P 01/13/2022 Pulmonary emphysema 8743 3001 J43.9 Joleen Gambino CLINICAL MASSAGE THERAPIST, 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 Aneurysm o f thoracic aorta 587255769 I71.[address] Martell [facility], as per note 04/27/2022 , TAA is 4.2cm, f/u in 6 months Hypercalcemia 43054728 E 83.52 NM parathyroi d scan 12/16/2022 Dr Duran, may need to see ENT also Screening mammography 24 486192 Z12.31 [id number] Sanjuanita talamantes MD [facility] [place] hawkins [address] [facility] [place] [address] 07/19/2023 10:24:43 07/19/2023 11:24:13 Adult health examination 446801279 Z00.00 Screening for disorder 387213452 Z13.9 Screening - NAD 39318578 3 Z13.9 C-scope: Dr Judith waterman 10/02/17: [...] of the above Vitamin D deficiency 347 92700 E55.9 Repeat the vit d level Hypothyroidism 69704288 E03.9 On levothyrox ine 137mcgs daily, will increase to 150mcgs daily as TSH is elevatedGe t US thyroidDoe s well Get labs Anemia 116493324 D64.9 Does wellGet labsDid see Dr Alvarenga Essential hypertension 29529751 I10 On coreg 6.25mg dailyOn HCTZ 12.5mg daily Does wellGet labsShe did see Dr Jasbir CASIANO Hyperlipidemia 94098929 E78.5 On ASANot on simvastati n 40mg dailyNot on atorvastat in 40mg dailyOn pitavastat in 2mg daily Does wellGet labs Chronic ob structive pulmonary disease 31455924 J44.9 Seen Joleen Maki NPNow to get a in lab sleep study as per her history Hyperglycemia 58145086 R 73.9 On metformin 500mg po bid Needs to diet and exerciseNe eds to do labs and see eye and foot Increased liver function 03700883 R94.5 US liver 12/27/21CT A/P 01/13/2022 CMP: LFTs WNL 04/18/2022 Should see GI hepatology , states that she did not do this the last time as she did not have the ride Hydroureter 47911314 N13 .4 S/p CT A/P 01/13/2022 Pulmonary emphysema 8743 3001 J43.9 Joleen Gambino CLINICAL MASSAGE THERAPIST, 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 Aneurysm o f thoracic aorta 698323506 I71.[address] Martell [facility], as per note 04/27/2022 , TAA is 4.2cm, f/u in 6 monthsDr Jabsir CASIANO 03/21/2023 , f/u in 6 months Hypercalcemia 15806254 E 83.52 NM parathyroi d scan 12/16/2022 Dr Duran, may need to see ENT also Screening mammography 24 972225 Z12.31 Bleeding from nose [address] Bayron Morin ENT 03/16/2023 CTA neck 07/07/2023 [id number] Sanjuanita talamantes MD [facility] hawkins [address] [place] [address] 10/23/2023 10:26:22 10/23/2023 11:30:01 Vitamin D deficiency 65859920 E55.9 Repeat the vit d level Screening - NAD 54795846 3 Z13.9 C-scope: Dr Judith waterman 10/02/17: [...] her understand ing of the above Hypothyroidism 49527857 E03.9 On levothyrox ine 150mcgs daily, renewed 10/23/2023 with UnithroidG et US thyroidDoe s well Get labs Anemia 893467516 D64.9 Does wellGet labsDid see Dr Alvarenga Essential hypertension 63727316 I10 On coreg 6.25mg dailyOn HCTZ 12.5mg daily Does wellGet labsShe did see Dr Martell [facility] Hyperlipidemia 86912516 E78.5 On ASANot on simvastati n 40mg dailyNot on atorvastat in 40mg dailyNot on pitavastat in 2mg dailyOn zetia 10mg daily Does wellGet labs Chronic ob structive pulmonary disease 14378642 J44.9 Seen Joleen Gambino NPNow to get a in lab sleep study as per her history Hyperglycemia 29928926 R 73.9 On metformin 500mg po bid Needs to diet and exerciseNe eds to do labs and see eye and foot Increased liver function 49296667 R94.5 US liver 12/27/21CT A/P 01/13/2022 CMP: LFTs WNL 04/18/2022 Should see GI hepatology , states that she did not do this the last time as she did not have the rideReferr ed again 10/23/2023 Hydroureter 61766793 N13 .4 S/p CT A/P 01/13/2022 Pulmonary emphysema 8743 3001 J43.9 Joleen Gambino CLINICAL MASSAGE THERAPIST, 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 Aneurysm o f thoracic aorta 233742166 I71.[address] Martell [facility], as per note 04/27/2022 , TAA is 4.2cm, f/u in 6 monthsDr Jasbir MARTINS 03/21/2023 , f/u in 6 months, is to get CT C/A/P on 10/30/2023 Hypercalcemia 67608961 E 83.52 NM parathyroi d scan 12/16/2022 Dr Duran, may need to see ENT also, low vit d, will need to discuss with nephrology about taking vit d, she also would like a referral to endocrine, as her nephrologi st told her she need to see an endocrine MD, referred to Dr Stark Bleeding from nose [address] Bayron Morin ENT 03/16/2023 CTA neck 07/07/2023 Pain of ri ght hip joint 8893924981 59729 M25.551 States that she would like to get a referral to Dr Mehta ortho as her preferred ortho as she her lab phlebotomi st went to him Moderate r ecurrent major depression 29040936 F33.1 Feels overwhelme d with her medical issues, also has to take care of her sister who has had surgery, not suicidal or homicidalW illing to start on sertraline , all side effects explained to her [id number] Amparo Tolentino, P[employer]OW F[employer]ER-C [facility] [place] [address] [place] [address] 05/21/2024 08:39:53 05/21/2024 09:43:17 [id number] Sanjuanita talamantes MD [facility] [place] [address] [place] [address] 05/29/2024 11:13:27 05/29/2024 12:32:57 Vitamin D deficiency 67099392 E55.9 Repeat the vit d level Screening - NAD 55650457 3 Z13.9 C-scope: Dr Judith waterman 10/02/17: Next 5-10 years09/10: Dr Wong n EGD and c-scope Mammogram: 09/19/17: NegMammogr [...] her understand ing of the above Hypothyroidism 89220423 E03.9 On levothyrox ine 150mcgs daily, renewed 10/23/2023 with UnithroidU S thyroid 05/06/2024 Does well Get labs Anemia 173044661 D64.[address]Did [address] Alvarenga 05/15/2024 , next in 2 monthsIs to get an infusion this Monday05/31/2024 Essential hypertension 13403459 I10 On Coreg 6.25mg dailyOn HCTZ 12.5mg daily Does wellGet labsShe did see Dr Martell [facility] Hyperlipidemia 05202626 E78.5 On ASANot on simvastati n 40mg dailyNot on atorvastat in 40mg dailyNot on pitavastat in 2mg dailyOn zetia 10mg daily Does wellGet labs Chronic ob structive pulmonary disease 89662357 J44.9 Seen Joleen Gambino NPNow to get a in lab sleep study as per her history Hyperglycemia 26547518 R 73.9 On metformin 500mg po bid Needs to diet and exerciseNe eds to do labs and see eye and foot Increased liver function 83832684 R94.5 US liver 12/27/21CT A/P 01/13/2022 CMP: LFTs WNL 04/18/2022 Should see GI hepatology , states that she did not do this the last time as she did not have the rideReferr ed again 10/23/2023 Hydroureter 71812002 N13 .4 S/p CT A/P 01/13/2022 Pulmonary emphysema 8743 3001 J43.9 Joleen Gambino CLINICAL MASSAGE THERAPIST, 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 Aneurysm o f thoracic aorta 783470227 I71.[address] Jasbir MARTINS, as per note 04/27/2022 , TAA is 4.2cm, f/u in 6 monthsDr Jasbir MARTINS 03/21/2023 , f/u in 6 months, is to get CT C/A/P on 10/30/2023 Hypercalcemia 90369405 E 83.52 NM parathyroi d scan 12/16/2022 Dr Duran, may need to see ENT also, low vit d, will need to discuss with nephrology about taking vit d, she also would like a referral to endocrine, as her nephrologi st told her she need to see an endocrine MD, referred to Dr Stark Again referred 05/29/2024 Bleeding from nose [address] Bayron Morin ENT 03/16/2023 CTA neck 07/07/2023 Pain of ri ght hip joint 0222235366 78348 M25.551 S/p surgery Dr Garcia/u visit 04/22/2024 and next in one year Moderate r ecurrent major depression 26841798 F33.1 Feels overwhelme d with her medical issues, also has to take care of her sister who has had surgery, not suicidal or homicidalO n sertraline , all side effects explained to her Screening mammography 24 984788 Z12.31 Postmenopausal state 764 10428 Z78.0 Health Concerns Section Related Observation LastModified by Organization Detai ls LastModified Time None Recorded Concern Status LastModified by Organization Details LastModified Time None Recorded Advance Directives Directive N: Information provided Payers Encounter Date Sequence Insurance Name Policy Number Policy Alberto Covered Member ID Alberto Member ID Guarantor Name 03/22/2023 1 [place] Jory Mart [id number] Jory Mart 03/22/2023 2 [place] Jory Mart [id number] Jory A Hessel 07/19/2023 1 [place]ory A Hessel [id number] Jory A Hessel 07/19/2023 2 [place] [facility] [place] [facility] Jory A Hessel [id number] Jory A Hessel 10/23/2023 1 [place] Jory A Hessel [id number] Jory A Hessel 10/23/2023 2 [place] [facility] [place] [facility] Jory A Hessel [id number] Jory A Hessel 05/29/2024 1 [place] Jory A Hessel [id number] Jory A Hessel 05/29/2024 2 [place] [facility] Jory A Hessel [id number] Jory A Hessel Notes Date Note Type Note Provider Name and Address Organization Details Recorded Time 03/22/2023 text/html 02/20/17Here to establish carePMD: In [facility], last apt was a 'long ago'Past Hx:HTNHLDAnemiaSkin [...] she was seen by Dr Vazquez a solution mixer and was told to do a 'cath'She [...] is doing well today Sanjuanita Bach MD [address] [place] [address], [facility] [address], [place], [address], [place] [facility] [employer] 03/22/2023 17:44:27 07/19/2023 text/html 02/20/17Here to establish carePMD: In [facility], last apt was a 'long ago'Past Hx:HTNHLDAnemiaSkin [...] she was seen by Dr Vazquez a solution mixer and was told to do a 'cath'She [...] is doing well Sanjuanita Bach MD [address] [facility], [place], [address], [place] [facility] [place] [facility] 07/24/2023 18:32:10 10/23/2023 text/html 02/20/17Here to establish carePMD: In [facility], last apt was a 'long ago'Past Hx:HTNHLDAnemiaSkin cancer L LEReviewed social family and surgical historyHere as she would adolph to discuss this today and perhaps get some labs 03/06/17:Here for her follow up aptShcatherine did do the labs on 02/25/17 OV [...] she was seen by Dr Vazquez a solution mixer and was told to do a 'cath'She [...] weight gain or loss Sanjuanita Bach MD [address] [facility], [facility] [address], [place], [address], [place] [facility] [place] [facility] 10/23/2023 14:46:13 05/29/2024 text/html 02/20/17Here to establish carePMD: In [facility], last apt was a 'long ago'Past Hx:HTNHLDAnemiaSkin cancer L LEReviewed social family and surgical historyHere as she would adolhp to discuss this today and perhaps get some labs 03/06/17:Here for her follow up aptShcatherine did do the labs on 02/25/17 OV [...] she was seen by Dr Vazquez a solution mixer and was told to do a 'cath'She [...] sleep disturbances or weight gain or loss OV 05/29/2024: Here for her f/u apt, she is doing well, she did do the labs Sanjuanita Bach MD [facility] [place] [address], [place] [address], [place], [address], [place] [facility] [place] [facility] 05/29/2024 15:48:59 OBGyn Episode No OBEpisode recorded.
--- OUTSIDE RECORDS SUMMARY | 2024-06-08 19:23 | XMS_ITS | Referral Summary ---
Author Organization [facility] [address] Address [address] [place] [address] Care Team Providers Care Section Leader Name Role Phone Tu Bach MD Primary Care Provide r Encounters Date Type Department Care Team Description 04/22/2024 11:00 AM CDT - 04/22/2024 11:59 PM CDT Hospital Encounter [facility] [address] [place] [address] [address] [place] [address] Orthopedic aftercare Discharge Disposition: Discharge to home or self care 04/22/2024 11:30 AM CDT Office Visit [facility] Orthopaedic Surgery [address] [place] [address] Medical Office Building [address] [place] [address] Candy Wu NP Orthopedic aftercare [...] Obesity, unspecified 01/20/2024 Moderate major depression 01/20/2024 technician terminal and repeater (current) use of oral hypoglycemic shanti gs 01/20/2024 Hypothyroidism, unspecified 01/20/2024 Chronic kidney disease, unspecified 01/20/2024 Body mass index (BMI) 32.0-32.9, adult Aftercare following joint replacement surgery Respiratory failure, post-operative 01/18/2024 Assessment & Plan (01/19/2024 1:26 PM BARK FITTER): Occurring after R ANDREW 01/16. Pt reports [...] 01/18/2024 Assessment & Plan (01/19/2024 1:22 PM BARK FITTER): Pt with h/o iron deficiency, though pre-op [...] complication Assessment & Plan (01/19/2024 1:26 PM BARK FITTER): -Hold home metformin, resume on discharge -Agree with SSI and BG monitoring. Skin lesion 04/27/2022 Jgcnh-9-qcaydingemh deficiency 04/20/2022 Hypoxia 04/20/2022 Dyspnea on exertion 03/07/2022 Obstructive sleep apnea syndrome 03/07/2022 Assessment & Plan (01/18/2024 5:38 PM BARK FITTER): Continue to use home CPAP at night and during naps. Aneurysm of thoracic aorta 01/19/2022 Nonalcoholic fatty liver 01/19/2022 COVID-19 01/16/2022 Hydroureter 01/09/2022 Chronic kidney disease 12/15/2021 Elevated liver enzymes 12/15/2021 Hyperglycemia 12/15/2021 Vitamin D deficiency 12/15/2021 Vertigo 09/07/2021 Chest pain, unspecified 07/15/2021 Hip pain 07/15/2021 Essential (primary) hypertension 07/15/2021 Assessment & Plan (01/18/2024 5:36 PM BARK FITTER): Agree with holding home carvedilol and HCTZ in setting of borderline BP. -Monitor BP and resume home meds in stepwise fashion Tobacco dependence syndrome 07/15/2021 Trochanteric bursitis of right hip 07/15/2021 Primary osteoarthritis of right hip 07/15/2021 Assessment & Plan (01/18/2024 5:38 PM BARK FITTER): S/p R ANDREW, defer management to primary ortho team Right hip pain 07/15/2021 It band syndrome, right 07/15/2021 Vitamin B12 deficiency anemia 01/29/2018 Microcytic anemia 01/22/2018 Hypertensive disorder 02/20/2017 Hyperlipidemia 02/20/2017 Hypothyroidism 02/20/2017 Assessment & Plan (01/18/2024 5:37 PM BARK FITTER): Cont synthroid Iron deficiency 02/20/2017 Palpitations 01/24/2013 Chronic obstructive pulmonary disease, unspecifi ed 11/28/2011 Assessment & Plan (01/19/2024 1:22 PM BARK FITTER): H/o COPD as well as chart h/o [...] Tobacco: Never Tobacco Cessation:Counseling Given: Not Answered [facility] Utilities Answer Date Recorded In the [...] often do you attend chur ch or worship services? 1 to 4 times per year 01/18/2024 Do you belong to any clubs o r organizations such as christian groups, unions, fraternal or athletic groups, or [...] any time in the past 12 m [facility], were you homeless or living in a care home (including now)? No 01/18/2024 Personal Safety Answer Date Recorded Have you ever been in or are you currently in a harmful physical or emotional relationship or is someone making you feel afraid or unsafe? Denies 01/17/2024 Comments No Sex and Gender Information Value Date Recorded Sex Assigned at Not on file Legal Sex Female 10:52 AM BARK FITTER Gender Identity Not on file Sexual Orientation Not on file Last Filed Vital Signs Vital Sign Reading Time Taken Comments Blood Pressure 109/57 01/19/2024 7:11 AM BARK FITTER Pulse 77 01/19/2024 7:11 AM BARK FITTER Temperature 36.6 C (97.9 F) 01/19/2024 7:11 AM BARK FITTER Respiratory Rate 18 01/19/2024 7:11 AM BARK FITTER Oxygen Saturation 97% 01/19/2024 11:55 AM BARK FITTER Inhaled Oxygen Concentration - - Weight 81.6 kg (180 lb) 01/17/2024 7:30 AM BARK FITTER Height 157.5 cm (5' 2 ) 01/17/2024 7:30 AM BARK FITTER Body Mass Index 32.92 01/17/2024 7:30 AM BARK FITTER Plan of Treatment Not on file Medical Devices Implanted Type Area Health Care Sanitary Technician Device Identifier Shelf Expiration Date Model / Serial / Lot [employer] Liner Acetabular Hip Trident X3 40mm Polyethylene 0 Degree Size E 723-00-40e - [id number] Implanted:Qty: 1 on 01/17/2024 at [facility] Right: Hip [employer] 10/18/2028 723-00-40E / / [id number] [employer] 40mm Hip [place] Taper Head Femoral Biolox Delta 6519-1-040 - [id number] Implanted:Qty: 1 on 01/17/2024 at [facility] Right: Hip [employer] 11/11/2028 6519-1-040 / / [id number] [employer] Screw Bone Trident Ii L30mm Od6.5mm Low Profile Hexagonal Sterile 9484-2347 - [id number] Implanted:Qty: 1 on 01/17/2024 at [facility] Right: Hip [employer] 09/12/2028 [id number] / / [id number] [employer] Shell Acetabular Trident Ii Tritanium E Od52mm Hip 5 Screw Hole Cluster Sterile 702-04-52e - [id number] Implanted:Qty: 1 on 01/17/2024 at [facility] Right: Hip [employer] 11/07/2028 702-04-52E / / [id number] [employer] Stem Insignia Hip Size 6 High Offset 6670-2922 - [id number] Implanted:Qty: 1 on 01/17/2024 at [facility] Right: Hip [employer] 11/20/2028 [id number] / / [id number] [employer] V40 Hip +0mm Offset [place] Taper Sleeve Adapter Titanium 6519-T-100 - [id number] Implanted:Qty: 1 on 01/17/2024 at [facility] Right: Hip [employer] 12/04/2028 6519-T-100 / / [id number] Procedures Procedure Name Priority Date/Time Associated Diagnosis Comments XR HIP RIGHT W PELVIS 2 OR 3 VIEWS Schedule Routine, Read Routine (OP Routine) 04/22/2024 11:24 AM CDT Orthopedic aftercare EGFR Routine 01/18/2024 4:41 AM BARK FITTER HEMOGLOBIN A1C Routine 01/01/2024 3:32 PM BARK FITTER Preoperative testing Type 2 diabetes mellitus with [...] signed by: Golden Azar M.D. Candy Wu CRUSHED STONE GRADER IMG XR PROCEDURES Final R esult * eGFR (01/18/2024 4:41 AM BARK FITTER) eGFR >90 >=60 mL/min/1. 73 m2 Comment: [...] last reviewed 2020. Blood 01/18/2024 4:41 AM BARK FITTER 01/18/2024 4:52 AM BARK FITTER Kira PEACE LAB BLOOD ORDERABLES Jeanna mortensen Result Performing Organization Address City/[facility]/ZIP Co de Phone Number [facility] [address] [facility] [place] [address] * (ABNORMAL) Hemoglobin A1c (01/01/2024 3:32 PM BARK FITTER) Hgb A1C 6.4(H) 4.0 - 5.6 % Estimated Average Glucose 137 mg/dL [facility] Comment: The ADA recommends reporting an estimated Average Glucose (eAG) with all Hemoglobin A1c results using the equation derived from a study of 507 normal and diabetic adults. Minority populations were underrepresented and children were not included. (Diabetes Care 2020; 43(S1): S66-S76). The eAG is not equivalent to a fasting glucose. Blood 01/01/2024 3:32 PM BARK FITTER 01/01/2024 3:58 PM BARK FITTER David Mehta MD LAB BLOOD ORDERABLES Final Resul t [facility] Department [place] [address] from Last 3 Months or Most Recently Relevant to Health Maintenance Insurance MEDICARE MEDICARE [facility] MEDICARE IDPA Advance Directives For more information, please contact: [phone] * Full Code (Latest Code Status on File) Date Activated Date Inactivated Comments 01/17/2024 1:48 PM 01/19/2024 5:18 PM Care Teams Section Leader Relationship Specialty Start Date End Date Tu Bach MD [address] [address] PCP - General Internal Medicine 06/08/21
--- OUTSIDE RECORDS SUMMARY | 2024-06-08 19:23 | XMS_ITS | Clinical Summary ---
Author Organization [facility] Address [address] [place] [address] Care Team Providers Care Window Maker Name Role Phone David Bach MD Primary [...] tablet Take 125 mcg by mouth daily puncher and fastener. Active simvastatin (ZOCOR) 40 mg tablet Take 40 mg by mouth daily with supper. Active carvedilol (COREG) 6.25 mg tablet Take 6.25 mg by mouth 2 times daily with meals. Active ferrous sulfate 325 mg (65 mg iron) tablet Take 325 mg by mouth 2 times daily. Active traMADol (ULTRAM) 50 mg tablet TAKE 1 TABLET BY MOUTH ONCE DAILY NEEDED 01/17/20 19 Active meclizine (ANTIVERT) 25 mg tablet meclizine 25 mg tablet Active HYDROcodone-acet aminophen (NORCO) 5-325 mg tablet TAKE 1 TABLET BY MOUTH EVERY 4 TO 6 HOURS NEEDED FOR PAIN 10/31/19 20 Active cyanocobalamin (VITAMIN B-12) 1,000 mcg/mL Solution 1 mL. Active clotrimazole-bet amethasone (LOTRISONE) 1-0.05 % Cream APPLY CREAM TO AFFECTED AREA ONCE DAILY AFTER WASHING. 02/04/20 20 Active flu vaccine quadrivalent ,65 yr+,,PF, (Fluzone HighDose Quad - PF) 240 mcg/0.7 mL Syringe syringe Fluzone High-Dose Quad (PF) 240 mcg/0.7 mL IM syringe PHARMACIST ADMINISTERED IMMUNIZATION ADMINISTERED AT TIME OF DISPENSING Active Ferrex 150 150 mg iron capsuleIndicatio ns:Microcytic anemia Take 1 Capsule (150 mg) by mouth daily. 90 Capsule 02/17/19 21 Active diphenhydrAMINE (Benadryl Allergy) 25 mg tablet [...] Encounters Date Type Department Care Team Description 05/15/2024 3:30 PM CDT Office Visit [facility] Oncology and Hematology [facility] [address] [place] [address] Darian Alvarenga MD Chronic anemia (Primary Dx) 05/08/2024 Orders Only [facility] Oncology and Hematology [facility] [address] [place] [address] Darian Alvarenga MD 03/26/2024 External Device Data STL ABSTRACTION Provider, [...] on file Legal Sex 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 Gender Identity Not on file Sexual Orientation Not on file Last Filed Vital Signs Vital Sign Reading Time Taken Comments Blood Pressure 129/82 05/15/2024 3:09 PM CDT Pulse 81 05/15/2024 3:09 PM CDT Temperature 36.8 C (98.3 F) 05/15/2024 3:09 PM CDT Respiratory Rate 15 05/15/2024 3:09 PM CDT Oxygen Saturation 92% 05/15/2024 3:09 PM CDT Inhaled Oxygen Concentration - - Weight 85.6 kg (188 lb 12.8 oz) 05/15/2024 3:09 PM CDT Height 157.5 cm (5' 2 ) 11/10/2021 1:35 PM CDT Body Mass Index 34.53 11/10/2021 1:35 PM CDT Plan of Treatment Upcoming Encounters Date Type Department Care Team (Late st Contact Info) Description 07/18/2024 11:15 AM CDT Office Visit [facility] Oncology and Hematology - [place] [address] [place] [address] [facility] [address] [place] [address] Darian Alvarenga MD [address] [facility] [address] [place] [address] Health Maintenance Due Date Last Done Comments DIABETES ANNUAL FOOT EXAM 1963 DIABETES ANNUAL RETINAL EXAM 1963 DIABETES MICROALBUMIN ANNUAL SCREEN 1963 LDL CHOLESTEROL ANNUAL 1963 Lung Cancer Screening 1995 ZOSTER VACCINE (1 of 2) 1995 RSV VACCINE (60+ or ) (1 - 1-dose 75+ series) 02/29/2020 DTAP/TDAP/TD VACCINES (2 - T d or Tdap) 10/15/2022 10/15/2012 INFLUENZA VACCINE (#1) 2023 3, 01/05/2022, 01/18/2021, Additional history exists COVID-19 Vaccine ( - 2023-2 5 season) 2023 02/23/2021, 04/27/2020, 04/25/2020, Additional history exists DIABETES HBA1C Q 6 MONTHS 06/30/20242023, 10/16/2023, 07/12/2023, Additional history exists OSTEOPOROSIS SCREENING 05/10/2027 , 05/09/2022, 09/18/2019, Additional history exists PNEUMOCOCCAL VACCINE 50+ YEARS Completed 0 09/21/2016, 09/23/2015, 08/31/2015 FIT/FOBT Q 1 year Discontinued 06/18/2018 COLORECTAL SCREENING Discontinued 08/19/2022, 08/19/2022, 09/10/2018, Additional history exists Colorectal Cancer Screening Discontinued FIT-DNA Q 3 years Discontinued Flex Sig/CT Colonography Q 5 years Discontinued Procedures Procedure Name Priority Date/Time Associated Diagnosis Comments IRON PANEL Routine 05/08/2024 2:44 PM CDT POC OCCULT BLOOD 1 CARD Routine 06/18/2018 Anemia due to vitamin B12 deficiency, unspecified B12 deficiency type from Last 3 Months or Most Recently Relevant to Health Maintenance Results * IRON PANEL (05/08/2024 2:44 PM CDT) Blood us Darian Alvarenga MD CHEMISTRY ORDERABLES Final Resu lt * (ABNORMAL) POC OCCULT BLOOD 1 CARD (06/18/2018) Stool STOOL SPECIMEN / Unknown us Darian Alvarenga MD POINT OF CARE TESTING Final Res ult [facility] from Last 3 Months or Most Recently Relevant to Health Maintenance Insurance MEDICARE PART A AND B [place] PART A [place] B [place] Care Teams Window Maker Relationship Specialty Start Date End Date David Bach MD PCP - General Internal Medicine 01/15/18
--- OUTSIDE RECORDS SUMMARY | 2024-06-08 19:23 | XMS_ITS | CONTINUITY OF CARE DOCUMENT ---
Author Name richy lockhart Address Unknown Organization [facility] Address [address] [place] [address] Phone [phone] Care Team Providers Care Custodial Engineer Name Role Phone Jasbir TORRES, Symone Unavailable SANJUANITA CAVANAUGH MD Unavailable [phone] SANJUANITA CAVANAUGH MD Unavailable [phone] PROBLEMS Condition Status Date Provider Notes HYPOTHYROIDISM active ? Symone Martell MD CHEST PAIN NL STRESS TEST 09/17 active ? Ra Martell MD TOBACCO ABUSE QUIT active Symone Martell MD ANEMIA S/P ENDOSCOPY, COLONO SCOPY DIVERICULITIS,POLYPS active Smyone Martell MD HTN SYSTOLIC active Symone Martell MD OBESITY active Symone Martell MD COPD ON CHEST CT active Symone Martell MD SLEEP APNEA, on cpap active Damien Laguerrezai PALPITATIONS active Symone Martell MD Thoracic aortic aneurysm, 3. 9 cm by echo 03/2023 active Symone Martell MD ENCOUNTERS Date Type Provider Location Encounter Diag nosis - In-person encounter Office Visit Symone Martell MD [facility] SLEEP APNEA, on cpap - In-person encounter Office Visit Symone Martell MD [facility] HTN SYSTOLICThoracic aortic aneurysm, 3.9 cm by echo 03/2023 - In-person encounter Office Visit Symone Martell MD [facility] TOBACCO ABUSE QUIT - In-person encounter Office Visit Symone Martell MD [facility] Thoracic aortic aneurysm, 3.9 cm by echo 03/2023 - In-person encounter Office Visit Symone Martell MD [facility] PALPITATIONS - In-person encounter Office Visit Symone Martell MD [facility] - In-person encounter Office Visit Symone Martell MD [facility] - In-person encounter Office Visit Symone Martell MD [facility] HYPOTHYROIDISMCHEST PAIN NL STRESS TEST 09/17TOBACCO [...] Meredith Nilton blood pressure, cuff size regular Ne sasha Callaway height E&M 63 [in_i] Meredith Nilton Body Mass Index (Ratio) 32.77 kg/m2 Les Martell MD pulse rate 63 /min Falguni Louis oxygen saturation, oximetry 98 % Falguni Louis respiratory rate E&M 16 /min Falguni Aurelia lyle blood pressure, cuff size regular [facility] blood pressure, diastolic 77 mm[Hg] [facility] blood pressure, systolic 135 mm[Hg] [facility] Louis weight E&M 185 [lb_av] [facility] height E&M 63 [in_i] [facility] Body Mass Index (Ratio) 31.35 kg/m2 Les [...] systolic, left arm 134 mm [Hg] Manilonnie cMkee blood pressure, diastolic, right arm 80 m m[Hg] Manilonnie Mckee blood pressure, systolic, right arm 133 m m[Hg] Manilonnie Mckee blood pressure, diastolic 80 mm[Hg] [facility]cal blood pressure, systolic 134 mm[Hg] Mani lonnie Mckee pulse rate 70 /min [facility] oxygen saturation, oximetry 98 % Manilonnie Mckee respiratory rate E&M 16 /min Manilonnie Mckee weight E&M 170.25 [lb_av] Mnailonnie fleming Body Mass Index (Ratio) 28.98 kg/m2 [...] 10*3/mm3 Rick Garcia hematocrit, blood 37.1 % [facility] thyroid stimulating hormone, serum 4.440 u[IU]/mL [facility] alanine aminotransferase (SGPT), serum 67 1/L [facility] aspartate aminotransferase (SGOT), serum 29 1/L [facility] creatinine, serum 0.60 mg/dL [facility] potassium, serum 4.4 mmol/L [facility] sodium, serum 141 mmol/L [facility] D-dimer quantitative mcg/mL 0.6 ug/mL [facility] lipoprotein, beta, serum, point, quantitative, calculated 116 mg/dL [facility] cholesterol, serum 168 mg/dL [facility] platelet count 335 10*3/mm3 [facility] hematocrit, blood 31.5 % [facility] creatinine, serum 0.82 mg/dL [facility] potassium, serum 4.0 mmol/L [facility] sodium, serum 140 mmol/L [facility] international normalized ratio (INR) 1.02 [facility] international normalized ratio (INR) 1.0 [facility] platelet count 412 10*3/mm3 [facility] hematocrit, blood 27.8 % [facility] D-dimer quantitative mcg/mL 0.6 ug/mL [facility] alanine aminotransferase (SGPT), serum 18 1/L Rick [...] Damien Loving smoking, date started 1967 Damien nicolsa smoking history, tot al pack/year 45 Damien [...] 45 Lilliam Stone drug use none Symone aMrtell MD social history reviewed E&M reviewed Symone [...] average drinks per day [facility] a [facility] [...] type / Coverage type Goldy sanchez ID [facility] Medicaid 3 [id number] [place] MEDICARE Medicare [id number] ADVANCE DIRECTIVES Name Date DISCUSSED - NO DECISION MADE TREATMENT PLAN Date Name Performer [id number],Symone Biggs MD [id number],Symone Biggs MD [id number],Symone Gardner MD [phone],Symone iBggs MD [id number],Symone Gardner MD Cardiology:This visi t has been [...] (Hydrochlorothiazide) ..... 1 tablet once a day [facility] Cardiology [facility] Cardiology: H er updated medication list for this problem includes: Carvedilol 6.25 Mg Tablet (Carvedilol) ..... [address] [facility]: B P today: 135/77 P rior BP: 145/84 (09/20/2022) Labs Reviewed: C reat: 0.60 (05/10/2012) C hol: 168 (12/09/2011) LDL: 116 (12/09/2011) Her updated medication list for this problem includes: Aspirin 81 Mg Oral Tablet (Aspirin) ..... One tab. daily Carvedilol 6.25 Mg Oral Tablet (Carvedilol) ..... One tab. twice daily Hydrochlorothiazide 12.5 Mg Oral Capsule (Hydrochlorothiazide) ..... One tab. daily [facility] Cardiology [facility] Card[facility] Cardiology: H er updated medication list for this problem includes: Levoxyl 100 Mcg Oral Tablet (Levothyroxine sodium) ..... One tab. daily [facility] Symone Martell MD Cardiology Symone [...]
--- OUTSIDE RECORDS SUMMARY | 2024-06-08 19:23 | XMS_ITS | Clinical Summary ---
Author Organization [facility] [address] Address [address] [place] [address] Care Team Providers Care Flavor Extractor Name Role Phone Tu Bach MD Primary [...] Obesity, unspecified 01/20/2024 Moderate major depression 01/20/2024 detention (current) use of oral hypoglycemic shanti gs 01/20/2024 Hypothyroidism, unspecified 01/20/2024 Chronic kidney disease, unspecified 01/20/2024 Body mass index (BMI) 32.0-32.9, adult Aftercare following joint replacement surgery Respiratory failure, post-operative 01/18/2024 Assessment & Plan (01/19/2024 1:26 PM MOTORCYCLE BUILDER): Occurring after R ANDREW 01/16. Pt reports [...] 01/18/2024 Assessment & Plan (01/19/2024 1:22 PM MOTORCYCLE BUILDER): Pt with h/o iron deficiency, though pre-op [...] complication Assessment & Plan (01/19/2024 1:26 PM MOTORCYCLE BUILDER): -Hold home metformin, resume on discharge -Agree with SSI and BG monitoring. Skin lesion 04/27/2022 Hdaep-4-emkalusispm deficiency 04/20/2022 Hypoxia 04/20/2022 Dyspnea on exertion 03/07/2022 Obstructive sleep apnea syndrome 03/07/2022 Assessment & Plan (01/18/2024 5:38 PM MOTORCYCLE BUILDER): Continue to use home CPAP at night and during naps. Aneurysm of thoracic aorta 01/19/2022 Nonalcoholic fatty liver 01/19/2022 COVID-19 01/16/2022 Hydroureter 01/09/2022 Chronic kidney disease 12/15/2021 Elevated liver enzymes 12/15/2021 Hyperglycemia 12/15/2021 Vitamin D deficiency 12/15/2021 Vertigo 09/07/2021 Chest pain, unspecified 07/15/2021 Hip pain 07/15/2021 Essential (primary) hypertension 07/15/2021 Assessment & Plan (01/18/2024 5:36 PM MOTORCYCLE BUILDER): Agree with holding home carvedilol and HCTZ in setting of borderline BP. -Monitor BP and resume home meds in stepwise fashion Tobacco dependence syndrome 07/15/2021 Trochanteric bursitis of right hip 07/15/2021 Primary osteoarthritis of right hip 07/15/2021 Assessment & Plan (01/18/2024 5:38 PM MOTORCYCLE BUILDER): S/p R ANDREW, defer management to primary ortho team Right hip pain 07/15/2021 It band syndrome, right 07/15/2021 Vitamin B12 deficiency anemia 01/29/2018 Microcytic anemia 01/22/2018 Hypertensive disorder 02/20/2017 Hyperlipidemia 02/20/2017 Hypothyroidism 02/20/2017 Assessment & Plan (01/18/2024 5:37 PM MOTORCYCLE BUILDER): Cont synthroid Iron deficiency 02/20/2017 Palpitations 01/24/2013 Chronic obstructive pulmonary disease, unspecifi ed 11/28/2011 Assessment & Plan (01/19/2024 1:22 PM MOTORCYCLE BUILDER): H/o COPD as well as 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 COPD may be contributing to present hypoxia, although not currently wheezing. -Scheduled duonebs ordered QID -For home would order PRN albuterol MDI q6h PRN -Hold on steroids for now unless wheezing Anemia, unspecified 11/28/2011 Obesity 11/28/2011 Encounters Date Type Department Care Team Description 04/22/2024 11:30 AM CDT Office Visit [facility] Orthopaedic Surgery [address] [place] [id number] Candy Wu NP Orthopedic aftercare (Primary Dx); History of total hip arthroplasty, right 04/22/2024 11:00 AM CDT - 04/22/2024 11:59 PM CDT Hospital Encounter [id number] [address] [place] [id number] Orthopedic aftercare Discharge Disposition: Discharge to home [...] Tobacco: Never Tobacco Cessation:Counseling Given: Not Answered [facility] [employer] Answer Date Recorded In the past 12 months has e Gist, gas, oil, or water company threatened to [...] often do you attend chur ch or quaker services? 1 to 4 times per year 01/18/2024 Do you belong to any clubs o r organizations such as scientology groups, unions, fraternal or athletic groups, or [...] any time in the past 12 [facility], were you homeless or living in a intermediate (including now)? No 01/18/2024 Personal Safety Answer Date Recorded Have you ever been in or are you currently in a harmful physical or emotional relationship or is someone making you feel afraid or unsafe? Denies 01/17/2024 Comments No Sex and Gender Information Value Date Recorded Sex Assigned at Not on file Legal Sex Female 10:52 AM MOTORCYCLE BUILDER Gender Identity Not on file Sexual Orientation Not on file Obstetrics History Last Filed Vital Signs Vital Sign Reading Time Taken Comments Blood Pressure 109/57 01/19/2024 7:11 AM MOTORCYCLE BUILDER Pulse 77 01/19/2024 7:11 AM MOTORCYCLE BUILDER Temperature 36.6 C (97.9 F) 01/19/2024 7:11 AM MOTORCYCLE BUILDER Respiratory Rate 18 01/19/2024 7:11 AM MOTORCYCLE BUILDER Oxygen Saturation 97% 01/19/2024 11:55 AM MOTORCYCLE BUILDER Inhaled Oxygen Concentration - - Weight 81.6 kg (180 lb) 01/17/2024 7:30 AM MOTORCYCLE BUILDER Height 157.5 cm (5' 2 ) 01/17/2024 7:30 AM MOTORCYCLE BUILDER Body Mass Index 32.92 01/17/2024 7:30 AM MOTORCYCLE BUILDER Plan of Treatment Health Maintenance Due Date [...] 09/23/2015, 08/31/2015 Medical Devices Implanted Type Area Telecommunication Equipment Repairer Device Identifier Shelf Expiration Date Model / Serial / Lot [employer] Liner Acetabular Hip Trident X3 40mm Polyethylene 0 Degree Size E 723-00-40e - [id number] Implanted:Qty: 1 on 01/17/2024 at [facility] Right: Hip [employer] 10/18/2028 723-00-40E / / [id number] [employer] 40mm Hip Rowena Taper Head Femoral Biolox Delta 6519-1-040 - [id number] Implanted:Qty: 1 on 01/17/2024 at [facility] Right: Hip [employer] 11/11/2028 6519-1-040 / / [id number] [employer] Screw Bone Trident Ii L30mm Od6.5mm Low Profile Hexagonal Sterile 9535-4906 - [id number] Implanted:Qty: 1 on 01/17/2024 at [facility] Right: Hip [employer] 09/12/2028 [id number] / / [id number] [employer] Shell Acetabular Trident Ii Tritanium E Od52mm Hip 5 Screw Hole Cluster Sterile 702-04-52e - [id number] Implanted:Qty: 1 on 01/17/2024 at [facility] Right: Hip [employer] 11/07/2028 702-04-52E / / [id number] [employer] Stem Insignia Hip Size 6 High Offset [id number] - [id number] Implanted:Qty: 1 on 01/17/2024 at [facility] Right: Hip [employer] 11/20/2028 [id number] / / [id number] [employer] V40 Hip +0mm Offset Rowena Taper Sleeve Adapter Titanium 6519-T-100 - [id number] Implanted:Qty: 1 on 01/17/2024 at [facility] Right: Hip [employer] 12/04/2028 6519-T-100 / / [id number] Procedures Procedure Name Priority Date/Time Associated Diagnosis Comments XR HIP RIGHT W PELVIS 2 OR 3 VIEWS Schedule Routine, Read Routine (OP Routine) 04/22/2024 11:24 AM CDT Orthopedic aftercare EGFR Routine 01/18/2024 4:41 AM MOTORCYCLE BUILDER HEMOGLOBIN A1C Routine 01/01/2024 3:32 PM MOTORCYCLE BUILDER Preoperative testing Type 2 diabetes mellitus with [...] R esult * eGFR (01/18/2024 4:41 AM MOTORCYCLE BUILDER) eGFR >90 >=60 mL/min/1. 73 m2 Comment: [...] last reviewed 2020. Blood 01/18/2024 4:41 AM MOTORCYCLE BUILDER 01/18/2024 4:52 AM MOTORCYCLE BUILDER Kira PEACE LAB BLOOD ORDERABLES Jeanna balbina Result Performing Organization Address City/[facility]/ZIP Co de Phone Number [facility] [id number] [facility] [place] [address] * (ABNORMAL) Hemoglobin A1c (01/01/2024 3:32 PM MOTORCYCLE BUILDER) Hgb A1C 6.4(H) 4.0 - 5.6 % Estimated Average Glucose 137 mg/dL [facility] Comment: The ADA recommends reporting an estimated Average Glucose (eAG) with all Hemoglobin A1c results using the equation derived from a study of 507 normal and diabetic adults. Minority populations were underrepresented and children were not included. (Diabetes Care 2020; 43(S1): S66-S76). The eAG is not equivalent to a fasting glucose. Blood 01/01/2024 3:32 PM MOTORCYCLE BUILDER 01/01/2024 3:58 PM MOTORCYCLE BUILDER David Mehta MD LAB BLOOD ORDERABLES Final Resul t Performing Organization Address City/[facility] Co de Phone Number [facility] [place] [address] from Last 3 Months or Most Recently Relevant to Health Maintenance Insurance MEDICARE MEDICARE IDPA MEDICARE IDPA Advance Directives For more information, please contact: [phone] * Full Code (Latest Code Status on File) Date Activated Date Inactivated Comments 01/17/2024 1:48 PM 01/19/2024 5:18 PM Care Teams Flavor Extractor Relationship Specialty Start Date End Date Tu Bach MD [address] [place] [address] PCP - General Internal Medicine 06/08/21
[2024-06-08] MEDS: SODIUM CHLORIDE 0.9% IV 1,000 ML 999 ML IV CONT (19:55)
[2024-06-08] MEDS: ONDANSETRON INJ 4 MG/2 ML VIAL IV PUSH (19:57)
[2024-06-08] MEDS: MORPHINE SULFATE (*CRX) 4 MG/ML INJ 2 MG IV PUSH (19:58)
--- NOTE | 2024-06-08 20:05 | ECG_ITS ---
Test Date: 2024-06-08 20:09:57 Measurements Intervals [place] Rate: 78 P: 19 CO: 168 QRS: 3 QRSD: 82 T: 10 QT: 365 QTc: 417 Interpretive Statements SINUS RHYTHM Compared to ECG 08/04/2023 11:18:16 No significant changes Electronically Signed On 06-09-2024 16:03:40 CDT by Juan C Hernández
[2024-06-08 20:31] LABS: Troponin I < 0.012 ng/mL (0.000-0.034)
[2024-06-08 20:37] LABS: Lactic Acid Reflex 1.2 mmol/L (0.7-2.0)
--- NOTE | 2024-06-08 22:40 | ED_ITS ---
HPI - Abdominal Pain General Chief Complaint: Abdominal Pain Stated Complaint: abd pain Time Seen by Provider: 06/08/24 19:15 History of Present Illness HPI narrative: Patient is a 79-year-old female who presents emergency department chief complaint of epigastric pain. Patient was seen at [facility] and was referred to the emergency department. Patient reports he has had a prior cholecystectomy appendectomy and reports that she has had a prior stent in her pancreas the patient reports that pain is not improved by anything Related Data Home Medications ?Medication ?Instructions ?Recorded ?Confirmed ?Last Taken ?Type carvedilol 6.25 mg tablet 6.25 mg PO BID 11/28/18 08/14/23 08/04/23 History levothyroxine 137 mcg tablet 137 mcg PO DAILY 07/26/22 08/14/23 08/04/23 History metformin 500 mg tablet 500 mg PO BID 08/08/22 08/14/23 02/09/23 History cholecalciferol (vitamin D3) 25 25 mcg PO DAILY 02/07/23 08/14/23 02/07/23 History mcg (1,000 unit) tablet ezetimibe 10 mg tablet 10 mg PO DAILY 05/22/23 08/14/23 Unknown History polysaccharide iron complex 150 mg 150 mg PO BID 08/03/23 05/31/24 Unknown History iron capsule (Ferrex) Allergies Allergy/AdvReac Type Severity Reaction Status Date / Time meperidine AdvReac Severe Hallucinati Verified 06/08/24 18:24 ng codeine AdvReac Mild Itching Verified 06/08/24 18:24 NSAIDS (Non-Steroidal AdvReac Mild Gastrointestinal Verified 06/08/24 18:24 Anti-Inflamma Upset oxycodone AdvReac Severe Nausea Uncoded 06/08/24 18:24 Review of Systems 2 Review of Systems: A 10 system review of systems was completed on the patient and is negative except for what is stated in the HPI. Nursing and ancillary documentation was reviewed. [facility] Past Medical History Medical History Asthma Arthritis of right hip COPD (chronic obstructive pulmonary disease) The patient denies Anemia Presence of pancreatic duct stent This was subsequently removed. 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 Hypothyroid DDD (degenerative disc disease) Pancreatitis Hemorrhoid Hiatal hernia Sleep apnea Bronchitis Hyperlipidemia HTN (hypertension) Endometriosis Seasonal allergies Vitamin B12 deficiency anemia, unspecified Surgical History Surgical History History of pancreatic surgery H/O skin graft FTSG on left lower leg History of surgical removal of skin lesion of skin cancer on left lower leg H/O discectomy History of spinal surgery lumbar x2 Hx of cholecystectomy Hx of appendectomy History of ERCP H/O hemorrhoidectomy History of cardiac catheterization with no blockages History of hysterectomy Family History Family History Mother Hypertension Diabetes mellitus Father Malignant neoplasm of prostate Patient's father is Sibling Malignant neoplasm of prostate Hodgkin disease Stomach cancer Heart aneurysm Grandparent Alcoholism Other Family history of coronary artery disease Family history of elevated blood lipids Social History Social History Social History: 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 Code status full code Caffeine- daily Smoking packs per day: 0.5 Smoking cigarettes per day: 10.0 Years smoked: 50 Smoking pack-years: 25.00 Smoking status: Former smoker Tobacco type: cigarettes Second hand tobacco smoke exposure: No Smoking end date: 02/06/17 Additional smoking assessment comments: STATES SMOKED 1/2PK/DAY/50+YRS Alcohol intake: never Substance use: never Substance use type: does not use Do You Feel Safe in your Home?: Yes Lack of Transportation: No Lack of Food: Never True Current Housing: I Have Housing Concerned About Future Housing: No Difficulty Paying Gas/Electric Bills: No Difficulty Paying for Meds: No Currently Unemployed: No Education: High School Diploma/GED Difficulty w/ Childcare or Family Care: No Living arrangements: alone Occupation/Education: retired Gender identity (if verbalized by the patient): Female Sexual Orientation (if Verbalized by the Patient): Straight or Heterosexual Spiritual care concerns: No Agree to blood products: Yes Exam 2 Narrative: GENERAL: Well-appearing, well-nourished, and in no acute distress. HEAD: Normocephalic, atraumatic. EYES: PERRLA and EOMI. ENT: Nares clear, no rhinorrhea or epistaxis. Mucous membranes moist. NECK: Supple. CHEST: Clear to auscultation. No respiratory distress. HEART: Regular rate and rhythm. No murmur heard. Normal peripheral pulses. ABDOMEN: Soft, tenderness to palpation the epigastric region, nondistended, normal active bowel sounds. EXTREMITIES: Normal range of motion. No edema. SKIN: Warm, dry, no rash. NEURO: No focal deficits. Alert and oriented x3. PSYCH: Normal mood and affect. Course Vital Signs Vital signs: Vital Signs Pulse Rate 94 06/08/24 18:13 Respiratory Rate 14 06/08/24 18:13 Blood Pressure 160/123 H 06/08/24 18:13 Pulse Oximetry 98 06/08/24 18:13 Oxygen Delivery Room Air 06/08/24 18:13 Pulse Rate 81 06/08/24 22:45 Respiratory Rate 20 06/08/24 22:45 Blood Pressure 128/71 06/08/24 22:02 Pulse Oximetry 97 06/08/24 22:45 Oxygen Delivery Room Air 06/08/24 18:13 MDM - Abdominal Pain MDM Narrative Medical decision making narrative: Differential diagnosis includes pancreatitis, diverticulitis, colitis, biliary stone, Laboratory studies were obtained on the patient showed normal CBC normal CMP liver enzymes were normal lipase was normal Urinalysis showed evidence of UTI CT scan showed a new contour on the anterior surface of the left lobe of the liver the cannot exclude a mass recommended an outpatient MRI Otherwise no acute findings Lab Data 06/08/24 18:36 06/08/24 18:36 Labs: Lab Results 06/08/24 06/08/24 06/08/24 Range/Units 18:31 18:36 20:24 WBC 6.8 (4.5-10.0) K/mm3 RBC 4.67 (4.2-5.4) M/mm3 Hgb 10.0 L (12.0-15.0) g/dL Hct 34.7 L (37.0-47.0) % MCV 74.3 L (80-100) fl MCH 21.4 L (26-34) pg MCHC 28.8 L (32-36) g/dl RDW 25.6 H (11.5-14.5) % Plt Count 333 (150-375) k/mm3 MPV 10.0 (7.4-10.4) fl Immature Gran % (Auto) 0.4 (0-0.5) % Neut % (Auto) 67.0 (45.5-73.1) % Lymph % (Auto) 16.3 L (18.3-44.2) % [place] % (Auto) 8.1 (2.6-8.5) % Eos % (Auto) 7.6 H (0-4.4) % Baso % (Auto) 0.6 (0.2-1.2) % Lymph # (Auto) 1.11 (0.9-3.2) K/mm3 [place] # (Auto) 0.6 (0.1-0.6) K/mm3 Eos # (Auto) 0.5 H (0-0.3) K/mm3 Baso # (Auto) 0.0 (0.0-0.1) K/mm3 Abs Immat Gran (auto) 0.03 (0.00-0.031) K/mm3 Absolute Neuts (auto) 4.6 (1.3-6.7) K/mm3 Absolute Nucleated RBC 0.000 (0.0-0.012) K/mm3 Band Neutrophils % Not Reportable Nucleated RBC % 0.0 (0.0-0.2) % Platelet Estimate Adequate (Adequate) Anisocytosis 1+ Microcytosis 1+ (NORMAL) Ovalocytes 1+ Schistocytes None seen Sodium 137 (137-145) mmol/L Potassium 3.9 (3.4-5.0) mmol/L Chloride 106 (98-107) mmol/L Carbon Dioxide 23 (22-30) mmol/L Anion Gap 8 (4-12) mmol/L BUN 14 (7-17) mg/dL Creatinine 0.81 (0.7-1.0) mg/dL Estim Creat Clear Calc 52 ml/min Estimated GFR > 60 (59 - ) Glucose 133 H (65-110) mg/dL Lactic Acid 1.2 (0.7-2.0) mmol/L Calcium 10.1 (8.4-10.2) mg/dL Total Bilirubin 0.5 (0.2-1.3) mg/dL AST 19 (14-36) U/L ALT 18 (6-35) U/L Alkaline Phosphatase 97 (38-126) U/L Troponin I < 0.012 (0.000-0.034) ng/mL Total Protein 8.0 (6.3-8.2) g/dL Albumin 4.4 (3.5-5.1) g/dL Lipase 86 (23-300) U/L Urine Color Yellow (Yellow) Urine Appearance Clear (Clear) Urine pH 8.0 (5.0-9.0) Ur Specific [place] 1.011 (1.001-1.035) Urine Protein Negative (Negative) mg/dL Urine Glucose (UA) Negative (Negative) mg/dL Urine Ketones Negative (Negative) mg/dL Ur Blood (Man) Negative (Negative) Urine Nitrate Negative (Negative) Urine Bilirubin Negative (Negative) Urine Urobilinogen 0.2 (<2.0) mg/dL Leukocyte Esterase Rfl 2+ H (Negative) LAURA/UL Urine RBC 0-2 (0-2) /hpf Urine WBC 6-10 H (0-3) /hpf Ur Squamous Epith Cells Occasional (Few) /hpf Urine Bacteria None seen /hpf Urine Casts 0-2 Imaging Data Radiologist's impression: ITS Impressions Abdomen/Pelvis CT 06/08/24 19:53 IMPRESSION: New contour abnormality along the anterior surface of the left liver lobe, a developing mass is not excluded. Recommend nonemergent but timely MRI of the liver without and with contrast for further characterization. Otherwise, no acute abdominal pelvic process is detected. Discharge Plan Discharge Clinical Impression: Abdominal pain, Acute UTI Patient Disposition: Home Condition: Stable Instructions: Antibiotic Form, Urinary Tract Infection in Women (ED), Abdominal Pain (ED) Additional Instructions: The CT scan showed a there is a abnormal contour of the left lobe of your liver this cannot exclude a mass and it is recommended that you have an MRI of your liver as an outpatient Patient Language: Telugu Prescriptions: New cephalexin 500 mg capsule 500 mg PO Q12H 7 Days Qty: 14 0RF No Action carvedilol 6.25 mg Tablet 6.25 mg PO BID Patient Comments: ..... ezetimibe 10 mg tablet 10 mg PO DAILY Rx Instructions: KEI polysaccharide iron complex [Ferrex 150] 150 mg iron capsule 150 mg PO BID levothyroxine 137 mcg tablet 137 mcg PO DAILY metformin 500 mg tablet 500 mg PO BID cholecalciferol (vitamin D3) 25 mcg (1,000 unit) Tablet 25 mcg PO DAILY mupirocin 2 % ointment See Rx Instructions topical .COMPLEX Qty: 44 1RF Rx Instructions: Follow instructions provided in clinic-NOSE Follow-up/Referrals: Mikala,MD David [Primary Care Provider] -
[2024-06-08] MEDS: CEPHALEXIN 500 MG CAPSULE PO (22:59)
== END 2024-06-08 23:30 | disposition home or self-care (01) ==
PROVIDERS: Emergency Medicine; Emergency Provider Emergency Medicine; PCP Internal Medicine
DX: N39.0 Urinary tract infection, site not specified (principal); R10.9 Unspecified abdominal pain; J45.909 Unspecified asthma, uncomplicated; E03.9 Hypothyroidism, unspecified; E78.5 Hyperlipidemia, unspecified; I10 Essential (primary) hypertension; Z87.891 Personal history of nicotine dependence
CPT/HCPCS: 36415; 71045; 74177; 80053; 81001; 83605; 83690; 84484; 85025; 87086; 93005; 96361; 96374; 96375; 99284; A9270; J2270; J2405; J7030; Q9967

== ENCOUNTER 2024-07-11 10:39 | Outpatient (CLI) | payer MEDICARE, MEDICAID, SELFPAY ==
[2024-07-11 10:56] LABS: Hematocrit 39.4 % (37.0-47.0); Hemoglobin 12.2 g/dL (12.0-15.0); Mean Corpuscular Hemoglobin 24.2 pg (26-34); Platelet Count Result 316 k/mm3 (150-375); Red Blood Count 5.05 M/mm3 (4.2-5.4); Red Cell Distribution Width 24.5 % (11.5-14.5); White Blood Count 5.8 K/mm3 (4.5-10.0)
--- OUTSIDE RECORDS SUMMARY | 2024-07-11 11:41 | XMS_ITS | Clinical Summary ---
Author Organization [facility] [place] [address] Address [address] [place] [address] Care Team Providers Care Self Contained Behavior Unit Teacher Name Role Phone Tu Bach MD Primary [...] Obesity, unspecified 01/20/2024 Moderate major depression 01/20/2024 correction (current) use of oral hypoglycemic shanti gs 01/20/2024 Hypothyroidism, unspecified 01/20/2024 Chronic kidney disease, unspecified 01/20/2024 Body mass index (BMI) 32.0-32.9, adult Aftercare following joint replacement surgery Respiratory failure, post-operative 01/18/2024 Assessment & Plan (01/19/2024 1:26 PM BIOCHEMISTRY PROFESSOR): Occurring after R ANDREW 01/16. Pt reports [...] 01/18/2024 Assessment & Plan (01/19/2024 1:22 PM BIOCHEMISTRY PROFESSOR): Pt with h/o iron deficiency, though pre-op [...] complication Assessment & Plan (01/19/2024 1:26 PM BIOCHEMISTRY PROFESSOR): -Hold home metformin, resume on discharge -Agree with SSI and BG monitoring. Skin lesion 04/27/2022 Ddunj-5-zqfjwnpzzux deficiency 04/20/2022 Hypoxia 04/20/2022 Dyspnea on exertion 03/07/2022 Obstructive sleep apnea syndrome 03/07/2022 Assessment & Plan (01/18/2024 5:38 PM BIOCHEMISTRY PROFESSOR): Continue to use home CPAP at night and during naps. Aneurysm of thoracic aorta 01/19/2022 Nonalcoholic fatty liver 01/19/2022 COVID-19 01/16/2022 Hydroureter 01/09/2022 Chronic kidney disease 12/15/2021 Elevated liver enzymes 12/15/2021 Hyperglycemia 12/15/2021 Vitamin D deficiency 12/15/2021 Vertigo 09/07/2021 Chest pain, unspecified 07/15/2021 Hip pain 07/15/2021 Essential (primary) hypertension 07/15/2021 Assessment & Plan (01/18/2024 5:36 PM BIOCHEMISTRY PROFESSOR): Agree with holding home carvedilol and HCTZ in setting of borderline BP. -Monitor BP and resume home meds in stepwise fashion Tobacco dependence syndrome 07/15/2021 Trochanteric bursitis of right hip 07/15/2021 Primary osteoarthritis of right hip 07/15/2021 Assessment & Plan (01/18/2024 5:38 PM BIOCHEMISTRY PROFESSOR): S/p R ANDREW, defer management to primary ortho team Right hip pain 07/15/2021 It band syndrome, right 07/15/2021 Vitamin B12 deficiency anemia 01/29/2018 Microcytic anemia 01/22/2018 Hypertensive disorder 02/20/2017 Hyperlipidemia 02/20/2017 Hypothyroidism 02/20/2017 Assessment & Plan (01/18/2024 5:37 PM BIOCHEMISTRY PROFESSOR): Cont synthroid Iron deficiency 02/20/2017 Palpitations 01/24/2013 Chronic obstructive pulmonary disease, unspecifi ed 11/28/2011 Assessment & Plan (01/19/2024 1:22 PM BIOCHEMISTRY PROFESSOR): H/o COPD as well as 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 COPD may be contributing to present hypoxia, although not currently wheezing. -Scheduled duonebs ordered QID -For home would order PRN albuterol MDI q6h PRN -Hold on steroids for now unless wheezing Anemia, unspecified 11/28/2011 Obesity 11/28/2011 Encounters Date Type Department Care Team Description 04/22/2024 11:30 AM CDT Office Visit [facility] Orthopaedic Surgery [address] [place] [address] Candy Wu NP Orthopedic aftercare (Primary Dx); History of total hip arthroplasty, right 04/22/2024 11:00 AM CDT - 04/22/2024 11:59 PM CDT Hospital Encounter [facility] [address] [place] [id number] Orthopedic aftercare Discharge Disposition: Discharge to home [...] Tobacco: Never Tobacco Cessation:Counseling Given: Not Answered [facility] [employer] Answer Date Recorded In the past 12 months has e [employer], gas, oil, or water company threatened to [...] often do you attend chur ch or alevism services? 1 to 4 times per year 01/18/2024 Do you belong to any clubs o r organizations such as yazidism groups, unions, fraternal or athletic groups, or [...] any time in the past 12 m [facility], were you homeless or living in a skilled nursing (including now)? No 01/18/2024 Personal Safety Answer Date Recorded Have you ever been in or are you currently in a harmful physical or emotional relationship or is someone making you feel afraid or unsafe? Denies 01/17/2024 Comments No Sex and Gender Information Value Date Recorded Sex Assigned at Not on file Legal Sex Female 10:52 AM BIOCHEMISTRY PROFESSOR Gender Identity Not on file Sexual Orientation Not on file Obstetrics History Last Filed Vital Signs Vital Sign Reading Time Taken Comments Blood Pressure 109/57 01/19/2024 7:11 AM BIOCHEMISTRY PROFESSOR Pulse 77 01/19/2024 7:11 AM BIOCHEMISTRY PROFESSOR Temperature 36.6 C (97.9 F) 01/19/2024 7:11 AM BIOCHEMISTRY PROFESSOR Respiratory Rate 18 01/19/2024 7:11 AM BIOCHEMISTRY PROFESSOR Oxygen Saturation 97% 01/19/2024 11:55 AM BIOCHEMISTRY PROFESSOR Inhaled Oxygen Concentration - - Weight 81.6 kg (180 lb) 01/17/2024 7:30 AM BIOCHEMISTRY PROFESSOR Height 157.5 cm (5' 2) 01/17/2024 7:30 AM BIOCHEMISTRY PROFESSOR Body Mass Index 32.92 01/17/2024 7:30 AM BIOCHEMISTRY PROFESSOR Plan of Treatment Health Maintenance Due Date [...] 09/23/2015, 08/31/2015 Medical Devices Implanted Type Area Math Specialist Device Identifier Shelf Expiration Date Model / Serial / Lot [employer] Liner Acetabular Hip Trident X3 40mm Polyethylene 0 Degree Size E 723-00-40e - [id number] Implanted:Qty: 1 on 01/17/2024 at [facility] Right: Hip [employer] 10/18/2028 723-00-40E / / [id number] [employer] 40mm Hip Napoleon Taper Head Femoral Biol[employer] Delta 6519-1-040 - [id number] Implanted:Qty: 1 on 01/17/2024 at [facility] Right: Hip [employer] 11/11/2028 6519-1-040 / / [id number] [employer] Screw Bone Trident Ii L30mm Od6.5mm Low Profile Hexagonal Sterile 5488-7436 - [id number] Implanted:Qty: 1 on 01/17/2024 at [facility] Right: Hip [employer] 09/12/2028 [id number] / / [id number] [employer] Shell Acetabular Trident Ii Tritanium E Od52mm Hip 5 Screw Hole Cluster Sterile 702-04-52e - [id number] Implanted:Qty: 1 on 01/17/2024 at [facility] Right: Hip [employer] 11/07/2028 702-04-52E / / [id number] [employer] Stem Insignia Hip Size 6 High Offset 7640-8913 - [id number] Implanted:Qty: 1 on 01/17/2024 at [facility] Right: Hip [employer] 11/20/2028 [id number] / / [id number] [employer] V40 Hip +0mm Offset Napoleon Taper Sleeve Adapter Titanium 6519-T-100 - [id number] Implanted:Qty: 1 on 01/17/2024 at [facility] Right: Hip [employer] 12/04/2028 6519-T-100 / / [id number] Procedures Procedure Name Priority Date/Time Associated Diagnosis Comments XR HIP RIGHT W PELVIS 2 OR 3 VIEWS Schedule Routine, Read Routine (OP Routine) 04/22/2024 11:24 AM CDT Orthopedic aftercare EGFR Routine 01/18/2024 4:41 AM BIOCHEMISTRY PROFESSOR HEMOGLOBIN A1C Routine 01/01/2024 3:32 PM BIOCHEMISTRY PROFESSOR Preoperative testing Type 2 diabetes mellitus with [...] R esult * eGFR (01/18/2024 4:41 AM BIOCHEMISTRY PROFESSOR) eGFR >90 >=60 mL/min/1. 73 m2 Comment: [...] last reviewed 2020. Blood 01/18/2024 4:41 AM BIOCHEMISTRY PROFESSOR 01/18/2024 4:52 AM BIOCHEMISTRY PROFESSOR Kira PEACE LAB BLOOD ORDERABLES Jeanna balbina Result Performing Organization Address City/[facility]/ZIP Co de Phone Number [facility] [address] [facility] Department [place] [address] * (ABNORMAL) Hemoglobin A1c (01/01/2024 3:32 PM BIOCHEMISTRY PROFESSOR) Hgb A1C 6.4(H) 4.0 - 5.6 % Estimated Average Glucose 137 mg/dL [facility] Comment: The ADA recommends reporting an estimated Average Glucose (eAG) with all Hemoglobin A1c results using the equation derived from a study of 507 normal and diabetic adults. Minority populations were underrepresented and children were not included. (Diabetes Care 2020; 43(S1): S66-S76). The eAG is not equivalent to a fasting glucose. Blood 01/01/2024 3:32 PM BIOCHEMISTRY PROFESSOR 01/01/2024 3:58 PM BIOCHEMISTRY PROFESSOR David Mehta MD LAB BLOOD ORDERABLES Final Resul t Performing Organization Address City/[facility] Co de Phone Number [facility] [place] [address] from Last 3 Months or Most Recently Relevant to Health Maintenance Insurance MEDICARE MEDICARE IDPA MEDICARE IDPA Advance Directives For more information, please contact: [phone] * Full Code (Latest Code Status on File) Date Activated Date Inactivated Comments 01/17/2024 1:48 PM 01/19/2024 5:18 PM Care Teams Self Contained Behavior Unit Teacher Relationship Specialty Start Date End Date Tu Bach MD [address] [place] [address] PCP - General Internal Medicine 06/08/21
--- OUTSIDE RECORDS SUMMARY | 2024-07-11 11:41 | XMS_ITS | Data Portability ---
Author Organization [place] [facility], Main Office Address [address] [place] [address] Care Team Providers Care Black Leather Trimmer Name Role Phone SANJUANITA BACH Primary Care [...] available Lab lipid panel, serum 2024 025 [facility] (Lab), [address] [place], [address], 05/29/2024 16:00:55 CMP, serum or plasma 2024 025 [facility] (Lab), [address] [place], [address], 05/29/2024 16:00:54 CBC w/ auto diff 2024 025 [facility] (Lab), [address] [place], [address], 05/29/2024 16:00:54 TSH, serum or plasma 2024 025 [facility] (Lab), [address] [place], [address], 05/29/2024 16:00:54 T4, free, serum 2024 025 [facility] (Lab), [address] [place], [address], 05/29/2024 16:00:55 glycohemo globin, total, blood 2024 025 [facility] (Lab), [address] [place], [address], 05/29/2024 16:00:54 microalbu min, urine 2024 025 [facility] (Lab), [address] [place], [address], 05/29/2024 16:00:54 vitamin D, 25-hydrox y, total, serum 2024 025 [facility] (Lab), [address] [place], [address], 05/29/2024 16:00:54 lipid panel, serum 2023 024 [email or web address] Not available 04/23/2024 11:13:21 CMP, serum or plasma 2023 024 Not available 04/23/2024 11:13:21 CBC w/ auto diff 2023 024 RICHIE Not available 01/02/2024 11:49:13 TSH, serum or plasma 2023 024 [email or web address] Not available 04/23/2024 11:13:21 T4, free, serum 2023 024 [email or web address] Not available 04/23/2024 11:13:21 glycohemo globin, total, blood 2023 024 [email or web address] Not available 04/23/2024 11:13:20 microalbu min, urine 2023 024 [email or web address] Not available 04/23/2024 11:13:20 vitamin D, 25-hydrox y, total, serum 2023 024 [email or web address] Not available 04/23/2024 11:13:20 lipid panel, serum [...] D, 25-hydrox y, total, serum 2023 024 [email or web address] Not available 09/20/2023 09:29:45 Referral endocrino logy referral - Please call patient to schedule an appointme nt. Thank you. 2024 025 AYAD Stark MD, [address], [place], [address], 05/30/2024 13:09:27 otolaryng ologist referral - Please call patient to schedule an appointme nt. Thank you. 2024 025 AYAD Morin MD, [address] [facility] [address], [place], [address], 05/30/2024 16:23:30 gastroent erologist referral - Please call pt to schedule appointme nt. Thank you 2024 025 AYAD Vora MD, [address] [place], [address], 05/30/2024 12:37:57 pulmonolo gist referral - Please call patient to schedule an appointme nt. Thank you. 2024 025 AYAD Magana MD, [address] [facility], [place], [address], 05/30/2024 13:50:25 podiatris t referral - Please call pt to schedule appt. Thank you 2024 025 RICHIE Hoang DPM, [address], [place], [address], 05/30/2024 14:22:55 cardiolog ist referral - Please call patient to schedule an appointme nt. Thank you. 2024 025 [place], [address] [facility], [place], [address], 05/30/2024 13:01:55 nephrolog ist referral 2023 024 [email or web address] 2 Tres Duran MD, [address] [facility] [address], [place], [address], 04/22/2024 08:34:52 endocrino logy referral 2023 024 RICHIE Stark MD, [address], [place], [address], 04/30/2024 15:25:31 otolaryng ologist referral 2023 024 [email or web address] 2 Les Morales, [address], [place], [address], 04/22/2024 08:34:54 orthopedi c surgeon referral 2023 024 RICHIE Mehta MD, [address], [place], [address], 11/15/2023 13:50:47 pulmonolo gist referral 2023 024 [email or web address] 2 Simon Magana MD, [address] [facility], [place], [address], 04/22/2024 08:34:53 cardiolog ist referral 2023 024 [email or web address] 2 [place], [address] [facility], [place] [address], [address], 04/22/2024 08:34:51 gastroent erologist referral - Please call pt to schedule appt. Thank you 2023 024 2 Janes Vora MD, [address] [place], [address], 04/22/2024 08:34:49 hematolog ist referral 2023 024 [email or web address] Darian Alvarenga MD, [address], [place], [address], 11/20/2023 08:59:10 podiatris t referral - Please call pt to schedule appt. Thank you 2023 024 [email or web address] 2 Bharath LOPEZM, [address], [place], [address], 04/22/2024 08:34:50 nephrolog ist referral 2023 024 [email or web address] Tres Duran MD, [address] [facility] [address], [place], [address], 01/15/2024 12:48:46 otolaryng ologist referral 2023 024 [email or web address] Bayron Morin MD, [address] [facility] [address], [place], [address], 01/15/2024 12:48:47 pulmonolo gist referral 2023 024 [email or web address] Simon Magana MD, [address] [facility], [address], [place], [address], 04/15/2024 17:30:46 cardiolog ist referral 2023 024 [email or web address] [place], [address], [facility] [address], [address], 01/15/2024 12:48:44 gastroent erologist referral - Please call pt to schedule appt. Thank you 2023 024 [email or web address] Janes Vora MD, [address] [place], [address], 01/15/2024 12:48:43 hematolog ist referral 2023 024 [email or web address] Darian Alvarenga MD, [address], [place], [address], 08/16/2023 13:56:16 podiatris t referral - Please call pt to schedule appt. Thank you 2023 024 [email or web address] Bharath Hoang DPM, [address] [facility] [address], [place], [address], 01/15/2024 12:48:43 nephrolog ist referral 2023 024 [email or web address] Tres Duran MD, [address] [facility] [address], [address], [address], 09/20/2023 09:33:10 gastroent erologist referral - Please call pt to schedule appt. Thank you 2023 024 [email or web address] Janes Vora MD, [address] [place], [address], 09/20/2023 09:33:08 podiatris t referral - Please call pt to schedule appt. Thank you 2023 024 [email or web address] Bharath Hoang DPM, [address] [facility] [address], [place], [address], 09/20/2023 09:33:09 cardiolog ist referral 2023 024 [email or web address] [place], [address] [facility], [facility] [address], [address], 10/16/2023 09:39:54 Procedures None recorded. Surgeries None recorded. Imaging MAMMO, screening , digital, bilateral - Please call patient to schedule. [address] ([facility]), [address] [place], [address], 07/04/2024 13:00:23 bone density - Please call patient to schedule. [address] ([facility]), [address] [place], [address], 07/04/2024 13:00:22 US, thyroid 2023 024 [email or web address] [facility], [address] [place], [address], 02/05/2024 14:20:47 MAMMO, screening , digital, bilateral 2023 024 [facility], [address] [place], [address], 08/21/2023 13:06:19 US, thyroid 2023 024 [email or web address] [facility], [address] [place], [address], 02/05/2024 14:20:52 MAMMO, screening , digital, bilateral 2023 024 [email or web address] [facility], [address] [place], [address], 09/08/2023 15:46:01 Medication Orders sertralin e 25 mg tablet 2024 025 [facility] [place], [address], 05/29/2024 12:29:22 cholecalc iferol (vitamin D3) 1,250 mcg (50,000 unit) capsule [address] [facility] [address] [place], [address], 05/29/2024 15:45:11 sertralin e 25 mg tablet [address] [facility] [address], [address] [place], [address], 10/23/2023 14:32:23 Unithroid 150 mcg tablet 2023 024 [facility] [address], [address] [place], [address], 10/23/2023 11:28:10 levothyro xine 150 mcg tablet [email or web address] [facility] [address], [address] [place], [address], 07/24/2023 18:30:47 Patient TargetsNo targets recorded. Patient Instructions Encounter Date Encounter Id Patient Instructions Last Modified By Organization Details Last Modified Time 07/19/2023 [id number] dementia rating scale-2* [email or web address] 2 Not available 07/19/2023 11:34:17 alcohol misuse* [email or web address] 2 Not available 07/19/2023 11:34:17 depression screening* [email or web address] 2 Not available 07/19/2023 11:34:17 Timed Up and Go test (TUG)* [email or web address] 2 Not available 07/19/2023 11:34:16 multi-dimensiona l health assessment questionnaire* Not available 07/24/2023 15:51:19 advance directiv es: care instructions [email or web address] 2 Not available 07/19/2023 11:34:17 advance care planning: care instructions [email or web address] 2 Not available 07/19/2023 11:34:17 [place] Advance Directives [email or web address] 2 Not available 07/19/2023 11:34:17 diabetic eye exam* [email or web address] Not availa ble 04/15/2024 17:30:56 Personalized Hea [...] Non Smoker Alcohol Misuse Screening: Negative Weight: Overweight try to lose 10% of your body weight Physical activity: Need more exercise/physical activity decrease sitting time to no more than 5hr/day Nutrition: Average Refer to attached handout DASH Diet: After Your Visit Fall Risk (screened today): Intermediate Refer to attached handout Preventing Falls: After your Visit Vaccines Pneumococcal: No further needed Influenza: Your next one in the fall of this year Chronic Disease Risks Stroke: Intermediate Risk I have no recommendations Heart Attack: Intermediate Risk I have no recommendations Clogging of the Arteries: High risk Active diagnosis, Continue current treatment plan Diabetes: High Risk Active diagnosis, Continue current treatment plan Secondary Prevention/Interven tion (detects treatable diseases before they may cause symptoms, disability, or ) Breast Cancer Screening with mammogram: Ordered Cervical/Uterine/Ov zi Cancer Screening: Referral to tongue carrier Osteoporosis Screening: Your next DEXA in: Ordered Recomme nded today Recommended today, but you have declined No screening necessary Your next DEXA in: 1 year Date Screening Last Performed: 05/10/22 Colon Cancer Screening: Colonoscopy Date Screening Last Performed: 06/13/2018 Eye Disease Screening: Recommended today Dementia Risk: Low I have no recommendations Depression Screening: Negative [email or web address] Not available 07/19/2023 11:19:12 10/23/2023 [id number] diabetic eye exam* [email or web address] Not avai lable 04/22/2024 08:34:28 Reason for Referral Hot Stick Man Referral for Increased liver function Please call pt to schedule appt. Thank you Referring Physician: Sanjuanita Bach Internal Medicine, Encounter Date: 03/22/2023 Pharmacy Technician Inpatient Referral for Hype rglycemia Please call pt to schedule appt. Thank you Referring Physician: Sanjuanita Bach [facility], Encounter Date: 03/22/2023 Over Short And Damage Clerk Referral for Es sential hypertension Referring Physician: Sanjuanita Bach Internal [facility], Encounter Date: 03/22/2023 Yard Goods Salesperson Referral for Hy percalcemia Referring Physician: Sanjuanita Bach Internal [facility], Encounter Date: 03/22/2023 Hot Stick Man Referral for Increased liver function Please call pt to schedule appt. Thank you Referring Physician: Sanjuanita Bach Internal [facility], Encounter Date: 07/19/2023 Pharmacy Technician Inpatient Referral for Hype rglycemia Please call pt to schedule appt. Thank you Referring Physician: Noy Barrios Medicine, Encounter Date: 07/19/2023 Over Short And Damage Clerk Referral for Es sential hypertension Referring Physician: Noy Barrios, Encounter Date: 07/19/2023 Yard Goods Salesperson Referral for Hy percalcemia Referring Physician: Noy Barrios, Encounter Date: 07/19/2023 Neuroscientist Referral for C hronic obstructive pulmonary disease Referring Physician: Noy Barrios, Encounter Date: 07/19/2023 Act Tutor Referral fo r Bleeding from nose Referring Physician: Noy Barrios, Encounter Date: 07/19/2023 Referring Physician: Noy Barrios, Encounter Date: 07/19/2023 Hot Stick Man Referral for Increased liver function Please call pt to schedule appt. Thank you Referring Physician: Noy Barrios, Encounter Date: 10/23/2023 Pharmacy Technician Inpatient Referral for Hype rglycemia Please call pt to schedule appt. Thank you Referring Physician: Noy Barrios, Encounter Date: 10/23/2023 Over Short And Damage Clerk Referral for Es sential hypertension Referring Physician: Noy Barrios, Encounter Date: 10/23/2023 Yard Goods Salesperson Referral for Hy percalcemia Referring Physician: Noy Barrios, Encounter Date: 10/23/2023 Neuroscientist Referral for C hronic obstructive pulmonary disease Referring Physician: Noy Barrios, Encounter Date: 10/23/2023 Act Tutor Referral fo r Bleeding from nose Referring Physician: Noy Barrios, Encounter Date: 10/23/2023 Referring Physician: Noy Barrios, Encounter Date: 10/23/2023 Endocrinology Referral for H ypercalcemia Referring Physician: Sanjuanita Bach Internal Medicine, Encounter Date: 10/23/2023 Orthopedic Surgeon Referral for Pain of right hip joint Referring Physician: Sanjuanita Bach [facility], Encounter Date: 10/23/2023 Hot Stick Man Referral for Increased liver function Please call pt to schedule appointment. Thank you Referring Physician: Sanjuanita Bach Internal [facility], Encounter Date: 05/29/2024 Pharmacy Technician Inpatient Referral for Hype rglycemia Please call pt to schedule appt. Thank you Referring Physician: Sanjuanita Bach Internal Medicine, Encounter Date: 05/29/2024 Over Short And Damage Clerk Referral for Es sential hypertension Please call patient to schedule an appointment. Thank you. Referring Physician: Sanjuanita Bach Internal Medicine, Encounter Date: 05/29/2024 Neuroscientist Referral for C hronic obstructive pulmonary disease Please call patient to schedule an appointment. Thank you. Referring Physician: Sanjuanita Bach [facility], Encounter Date: 05/29/2024 Act Tutor Referral fo r Bleeding from nose Please [...] 5.3 x10'3 /uL 4.2-10 .8 Not Available [facility] (Lab) [address] [place], [address], 03/13/2023 13:00:44 03/13/19 24 03/13/2023 CBC/C OMPLE TE BLD COUNT W/DIF F red blood cells 4.48 x10'6 /uL 3.80-5 .20 Not Available [facility] (Lab) [address] [place], [address], 03/13/2023 13:00:44 03/13/19 24 03/13/2023 CBC/C OMPLE TE BLD COUNT W/DIF F hemoglobin 12.2 g/dL 12.0-1 5.6 Not Available [facility] (Lab) [address] [place], [address], 03/13/2023 13:00:44 03/13/19 24 03/13/2023 CBC/C OMPLE TE BLD COUNT W/DIF F hematocrit 38.6 % 35.7-4 5.7 Not Available [facility] (Lab) [address] [place], [address], 03/13/2023 13:00:44 03/13/19 24 03/13/2023 CBC/C OMPLE TE BLD COUNT W/DIF F mean red cell volume 86.2 fL 82.0-9 9.0 Not Available [facility] (Lab) [address] [place], [address], 03/13/2023 13:00:44 03/13/19 24 03/13/2023 CBC/C OMPLE TE BLD COUNT W/DIF F mean red cell hemoglobin 27.2 pg 27.0-3 3.0 Not Available [facility] (Lab) [address] [place], [address], 03/13/2023 13:00:44 03/13/19 24 03/13/2023 CBC/C OMPLE TE BLD COUNT W/DIF F mean RBC HGB concentratio n 31.6 g/dL 31.0-3 6.0 Not Available [facility] (Lab) [address] [place], [address], 03/13/2023 13:00:44 03/13/19 24 03/13/2023 CBC/C OMPLE TE BLD COUNT W/DIF F red cell distribution width 16.0 % 11.8-1 5.5 high Not Available [facility] (Lab) [address] [place], [address], 03/13/2023 13:00:44 03/13/19 24 03/13/2023 CBC/C OMPLE TE BLD COUNT W/DIF F platelets 334 x10'3 /uL 150-40 0 Not Available [facility] (Lab) [address] [place], [address], 03/13/2023 13:00:44 03/13/19 24 03/13/2023 CBC/C OMPLE TE BLD COUNT W/DIF F mean platelet volume 10.8 fL 9.0-12 .4 Not Available [facility] (Lab) [address] [place], [address], 03/13/2023 13:00:44 03/13/19 24 03/13/2023 CBC/C OMPLE TE BLD COUNT W/DIF F neutrophils 58.5 % 39.0-7 2.0 Not Available [facility] (Lab) [address] [place], [address], 03/13/2023 13:00:44 03/13/19 24 03/13/2023 CBC/C OMPLE TE BLD COUNT W/DIF F lymphocytes 18.9 % 16.0-4 7.0 Not Available [facility] (Lab) [address] [place], [address], 03/13/2023 13:00:44 03/13/19 24 03/13/2023 CBC/C OMPLE TE BLD COUNT W/DIF F monocytes 9.8 % 5.0-12 .0 Not Available [facility] (Lab) [address] [place], [address], 03/13/2023 13:00:44 03/13/19 24 03/13/2023 CBC/C OMPLE TE BLD COUNT W/DIF F eosinophils 11.3 % 1.0-7. 0 high Not Available [facility] (Lab) [address] [place], [address], 03/13/2023 13:00:44 03/13/19 24 03/13/2023 CBC/C OMPLE TE BLD COUNT W/DIF F basophils 1.3 % 0.0-2. 0 Not Available [facility] (Lab) [address] [place], [address], 03/13/2023 13:00:44 03/13/19 24 03/13/2023 CBC/C OMPLE TE BLD COUNT W/DIF F immature granulocytes 0.2 % 0.00-0 .50 Not Available [facility] (Lab) [address] [place], [address], 03/13/2023 13:00:44 03/13/19 24 03/13/2023 CBC/C OMPLE TE BLD COUNT W/DIF F neutrophils, absolute count 3.12 x10'3 /uL 1.5-8. 0 Not Available [facility] (Lab) [address] [place], [address], 03/13/2023 13:00:44 03/13/19 24 03/13/2023 CBC/C OMPLE TE BLD COUNT W/DIF F lymphocytes, absolute count 1.01 x10'3 /uL 1.07-3 .43 low Not Available [facility] (Lab) [address] [place], [address], 03/13/2023 13:00:44 03/13/19 24 03/13/2023 CBC/C OMPLE TE BLD COUNT W/DIF F monocytes, absolute count 0.52 x10'3 /uL 0.29-0 .99 Not Available [facility] (Lab) [address] [place], [address], 03/13/2023 13:00:44 03/13/19 24 03/13/2023 CBC/C OMPLE TE BLD COUNT W/DIF F eosinophils, absolute count 0.60 x10'3 /uL 0.02-0 .53 high Not Available [facility] (Lab) [address] [place], [address], 03/13/2023 13:00:44 03/13/19 24 03/13/2023 CBC/C OMPLE TE BLD COUNT W/DIF F basophils, absolute count 0.07 x10'3 /uL 0.01-0 .08 Not Available [facility] (Lab) [address] [place], [address], 03/13/2023 13:00:44 03/13/19 24 03/13/2023 CBC/C OMPLE TE BLD COUNT W/DIF F immature granulocytes ,absolute 0.01 x10'3 /uL 0.00-0 .05 Not Available [facility] (Lab) [address] [place], [address], 03/13/2023 13:00:44 03/13/19 24 03/13/2023 CBC/C OMPLE TE BLD COUNT W/DIF F nucleated red blood cells 0.0 % -0 Not Available [facility] (Lab) [address] [place], [address], 03/13/2023 13:00:44 03/13/19 24 03/13/2023 CBC/C OMPLE TE BLD COUNT W/DIF F NRBC# 0.00 x10'3 /uL Not Available [facility] (Lab) [address] [place], [address], 03/13/2023 13:00:44 03/13/19 24 03/13/2023 MICRO ALBUM IN RANDO M URINE microalbumin , urine 8.2 mg/L 0.0-16 .6 Not Available [facility] (Lab) [address] [place], [address], 03/13/2023 13:03:32 03/13/19 24 03/13/2023 T4 FREE free T4 1.40 NG/dL 0.78-2 .19 Not Available [facility] (Lab) [address] [place], [address], 03/13/2023 13:55:34 03/13/19 24 03/13/2023 VITAM IN D 25-HY DROXY [id number] 30.8 NG/mL 30-100 Vitam in D Statu s: Defic ient: <20 ng/mL Insuf ficie nt: 20-29 ng/mL Suffi cient : 30-10 0 ng/mL Not Available [facility] (Lab) [address] [place], [address], 03/13/2023 13:55:44 03/13/19 24 03/13/2023 TSH thyroid-stim ulating hormone 5.300 uIU/m L 0.465- 4.680 high Not Available [facility] (Lab) [address] [place], [address], 03/13/2023 14:04:38 03/13/19 24 03/13/2023 HEMOG LOBIN A1C HA1C 5.5 % 4.0-6. 0 Diabe shaun Scree efren Crite len: <5.7% Consi stent with absen ce of diabe shaun 5.7-6 .4% Consi stent with incre ased risk for diabe shaun (pred iabet es) >OR=6 .5% Consi stent with diabe shaun REFER ENCE: Diabe shaun Care 2016, 39(Enriquez ppl.1 ):s13 -s22 Not Available [facility] (Lab) [address] [place], [address], 03/13/2023 14:33:53 03/13/19 24 03/13/2023 LIPID PANEL cholesterol 181 mg/dL 140-19 9 NIH MATEUS NSUS RECOM MENDA TION FOR SAEED STERO L: ADULT CHILD LOW RISK: <200 <170 BORDE RLINE : <200- 239 ----- HIGH RISK: >240 >200 Not Available [facility] (Lab) [address] [place], [address], 03/13/2023 14:45:59 03/13/19 24 03/13/2023 LIPID PANEL triglyceride s 200 mg/dL 0-150 high NIH MATEUS NSUS REPOR T RECOM MENDA TION FOR TRIGL YCERI DAVID: ADULT CHILD LOW RISK: <150 ----- BODER LINE: 150-1 99 ----- HIGH RISK: >200 ----- Not Available [facility] (Lab) [address] [place], [address], 03/13/2023 14:45:59 03/13/19 24 03/13/2023 LIPID PANEL HDL cholesterol 42 mg/dL 40- Not Available [facility] (Lab) [address] [place], [address], 03/13/2023 14:45:59 03/13/19 24 03/13/2023 LIPID PANEL [...] WILL NOT BE REPOR MIHIR. Not Available [facility] (Lab) [address] [place], [address], 03/13/2023 14:45:59 03/13/19 24 03/13/2023 COMPR EHENS CHAU METAB OLIC PANEL sodium 138 mmol/ L 137-14 5 Not Available [facility] (Lab) [address] [place], [address], 03/13/2023 14:46:07 03/13/19 24 03/13/2023 COMPR EHENS CHAU METAB OLIC PANEL potassium 4.5 mmol/ L 3.5-5. 1 Not Available [facility] (Lab) [address] [place], [address], 03/13/2023 14:46:07 03/13/19 24 03/13/2023 COMPR EHENS CHAU METAB OLIC PANEL chloride 103 mmol/ L 98-107 Not Available [facility] (Lab) [address] [place], [address], 03/13/2023 14:46:07 03/13/19 24 03/13/2023 COMPR EHENS CHAU METAB OLIC PANEL carbon dioxide 26 mmol/ L 22-30 Not Available [facility] (Lab) [address] [place], [address], 03/13/2023 14:46:07 03/13/19 24 03/13/2023 COMPR EHENS CHAU METAB OLIC PANEL anion gap 13.5 mmol/ L 14-22 low Not Available [facility] (Lab) [address] [place], [address], 03/13/2023 14:46:07 03/13/19 24 03/13/2023 COMPR EHENS CHAU METAB OLIC PANEL glucose 133 mg/dL 70-99 high Not Available [facility] (Lab) [address] [place], [address], 03/13/2023 14:46:07 03/13/19 24 03/13/2023 COMPR EHENS CHAU METAB OLIC PANEL BUN 16 mg/dL 8-19 Not Available [facility] (Lab) [address] [place], [address], 03/13/2023 14:46:07 03/13/19 24 03/13/2023 COMPR EHENS CHAU METAB OLIC PANEL creatinine 0.69 mg/dL 0.66-1 .25 Not Available [facility] (Lab) [address] [place], [address], 03/13/2023 14:46:07 03/13/19 24 03/13/2023 COMPR EHENS CHAU METAB OLIC PANEL GFR >60 Refer ence Range : [place] ge GFR Healt hy Adult : >60 [...] or ethni c subgr oups, such as Hisar nics. Outsi de the valid ated liz [...] on the NKF websi te: https ://nela w.kid trang.o rg/pr ofess ional s/kdo qi/gf r_cal culat or Not Available [facility] (Lab) [address] [place], [address], 03/13/2023 14:46:07 03/13/19 24 03/13/2023 COMPR EHENS CHAU METAB OLIC PANEL alkaline phosphatase 95 U/L 38-126 Not Available [facility] (Lab) [address] [place], [address], 03/13/2023 14:46:07 03/13/19 24 03/13/2023 COMPR EHENS CHAU METAB OLIC PANEL alanine aminotransfe rase 19 U/L 0-35 Not Available [facility] (Lab) [address] [place], [address], 03/13/2023 14:46:07 03/13/19 24 03/13/2023 COMPR EHENS CHAU METAB OLIC PANEL aspartate aminotransfe rase 20 U/L 15-37 Not Available [facility] (Lab) [address] [place], [address], 03/13/2023 14:46:07 03/13/19 24 03/13/2023 COMPR EHENS CHAU METAB OLIC PANEL bilirubin, total 0.80 mg/dL 0.20-1 .30 Not Available [facility] (Lab) [address] [place], [address], 03/13/2023 14:46:07 03/13/19 24 03/13/2023 COMPR EHENS CHAU METAB OLIC PANEL calcium 10.7 mg/dL 8.4-10 .2 high Not Available [facility] (Lab) [address] [place], [address], 03/13/2023 14:46:07 03/13/19 24 03/13/2023 COMPR EHENS CHAU METAB OLIC PANEL total protein 7.6 g/dL 6.3-8. 2 Not Available [facility] (Lab) [address] [place], [address], 03/13/2023 14:46:07 03/13/19 24 03/13/2023 COMPR EHENS CHAU METAB OLIC PANEL albumin 4.6 g/dL 3.0-4. 4 high Not Available [facility] (Lab) [address] [place], [address], 03/13/2023 14:46:07 03/13/19 24 03/13/2023 COMPR EHENS CHAU METAB OLIC PANEL globulin 3.0 g/dL 2.6-4. 2 Not Available [facility] (Lab) [address] [place], [address], 03/13/2023 14:46:07 03/13/19 24 03/13/2023 COMPR EHENS CHAU METAB OLIC PANEL A/G ratio 1.5 ratio 1.0-2. 0 Not Available [facility] (Lab) [address] [place], [address], 03/13/2023 14:46:07 07/12/19 24 07/12/2023 CBC/C OMPLE TE BLD COUNT W/DIF F white blood cells 5.5 x10'3 /uL 4.2-10 .8 Not Available [facility] (Lab) [address] [place], [address], 07/12/2023 13:52:06 07/12/19 24 07/12/2023 CBC/C OMPLE TE BLD COUNT W/DIF F red blood cells 4.11 x10'6 /uL 3.80-5 .20 Not Available [facility] (Lab) [address] [place], [address], 07/12/2023 13:52:06 07/12/19 24 07/12/2023 CBC/C OMPLE TE BLD COUNT W/DIF F hemoglobin 11.1 g/dL 12.0-1 5.6 low Not Available [facility] (Lab) [address] [place], [address], 07/12/2023 13:52:06 07/12/19 24 07/12/2023 CBC/C OMPLE TE BLD COUNT W/DIF F hematocrit 35.2 % 35.7-4 5.7 low Not Available [facility] (Lab) [address] [place], [address], 07/12/2023 13:52:06 07/12/19 24 07/12/2023 CBC/C OMPLE TE BLD COUNT W/DIF F mean red cell volume 85.6 fL 82.0-9 9.0 Not Available [facility] (Lab) [address] [place], [address], 07/12/2023 13:52:06 07/12/19 24 07/12/2023 CBC/C OMPLE TE BLD COUNT W/DIF F mean red cell hemoglobin 27.0 pg 27.0-3 3.0 Not Available [facility] (Lab) [address] [place], [address], 07/12/2023 13:52:06 07/12/19 24 07/12/2023 CBC/C OMPLE TE BLD COUNT W/DIF F mean RBC HGB concentratio n 31.5 g/dL 31.0-3 6.0 Not Available [facility] (Lab) [address] [place], [address], 07/12/2023 13:52:06 07/12/19 24 07/12/2023 CBC/C OMPLE TE BLD COUNT W/DIF F red cell distribution width 16.2 % 11.8-1 5.5 high Not Available [facility] (Lab) [address] [place], [address], 07/12/2023 13:52:06 07/12/19 24 07/12/2023 CBC/C OMPLE TE BLD COUNT W/DIF F platelets 361 x10'3 /uL 150-40 0 Not Available [facility] (Lab) [address] [place], [address], 07/12/2023 13:52:06 07/12/19 24 07/12/2023 CBC/C OMPLE TE BLD COUNT W/DIF F mean platelet volume 10.6 fL 9.0-12 .4 Not Available [facility] (Lab) [address] [place], [address], 07/12/2023 13:52:06 07/12/19 24 07/12/2023 CBC/C OMPLE TE BLD COUNT W/DIF F neutrophils 63.0 % 39.0-7 2.0 Not Available [facility] (Lab) [address] [place], [address], 07/12/2023 13:52:06 07/12/19 24 07/12/2023 CBC/C OMPLE TE BLD COUNT W/DIF F lymphocytes 18.7 % 16.0-4 7.0 Not Available [facility] (Lab) [address] [place], [address], 07/12/2023 13:52:06 07/12/19 24 07/12/2023 CBC/C OMPLE TE BLD COUNT W/DIF F monocytes 9.3 % 5.0-12 .0 Not Available [facility] (Lab) [address] [place], [address], 07/12/2023 13:52:06 07/12/19 24 07/12/2023 CBC/C OMPLE TE BLD COUNT W/DIF F eosinophils 7.9 % 1.0-7. 0 high Not Available [facility] (Lab) [address] [place], [address], 07/12/2023 13:52:06 07/12/19 24 07/12/2023 CBC/C OMPLE TE BLD COUNT W/DIF F basophils 0.9 % 0.0-2. 0 Not Available [facility] (Lab) [address] [place], [address], 07/12/2023 13:52:06 07/12/19 24 07/12/2023 CBC/C OMPLE TE BLD COUNT W/DIF F immature granulocytes 0.2 % 0.00-0 .50 Not Available [facility] (Lab) [address] [place], [address], 07/12/2023 13:52:06 07/12/19 24 07/12/2023 CBC/C OMPLE TE BLD COUNT W/DIF F neutrophils, absolute count 3.44 x10'3 /uL 1.5-8. 0 Not Available [facility] (Lab) [address] [place], [address], 07/12/2023 13:52:06 07/12/19 24 07/12/2023 CBC/C OMPLE TE BLD COUNT W/DIF F lymphocytes, absolute count 1.02 x10'3 /uL 1.07-3 .43 low Not Available [facility] (Lab) [address] [place], [address], 07/12/2023 13:52:06 07/12/19 24 07/12/2023 CBC/C OMPLE TE BLD COUNT W/DIF F monocytes, absolute count 0.51 x10'3 /uL 0.29-0 .99 Not Available [facility] (Lab) [address] [place], [address], 07/12/2023 13:52:06 07/12/19 24 07/12/2023 CBC/C OMPLE TE BLD COUNT W/DIF F eosinophils, absolute count 0.43 x10'3 /uL 0.02-0 .53 Not Available [facility] (Lab) [address] [place], [address], 07/12/2023 13:52:06 07/12/19 24 07/12/2023 CBC/C OMPLE TE BLD COUNT W/DIF F basophils, absolute count 0.05 x10'3 /uL 0.01-0 .08 Not Available [facility] (Lab) [address] [place], [address], 07/12/2023 13:52:06 07/12/19 24 07/12/2023 CBC/C OMPLE TE BLD COUNT W/DIF F immature granulocytes ,absolute 0.01 x10'3 /uL 0.00-0 .05 Not Available [facility] (Lab) [address] [place], [address], 07/12/2023 13:52:06 07/12/19 24 07/12/2023 CBC/C OMPLE TE BLD COUNT W/DIF F nucleated red blood cells 0.0 % -0 Not Available [facility] (Lab) [address] [place], [address], 07/12/2023 13:52:06 07/12/19 24 07/12/2023 CBC/C OMPLE TE BLD COUNT W/DIF F NRBC# 0.00 x10'3 /uL Not Available [facility] (Lab) [address] [place], [address], 07/12/2023 13:52:06 07/12/19 24 07/12/2023 LIPID PANEL cholesterol 190 mg/dL 140-19 9 NIH MATEUS NSUS RECOM MENDA TION FOR SAEED STERO L: ADULT CHILD LOW RISK: <200 <170 BORDE RLINE : <200- 239 ----- HIGH RISK: >240 >200 Not Available [facility] (Lab) [address] [place], [address], 07/12/2023 14:23:16 07/12/19 24 07/12/2023 LIPID PANEL triglyceride s 145 mg/dL 0-150 NIH MATEUS NSUS REPOR T RECOM MENDA TION FOR TRIGL YCERI DAVID: ADULT CHILD LOW RISK: <150 ----- BODER LINE: 150-1 99 ----- HIGH RISK: >200 ----- Not Available [facility] (Lab) [address] [place], [address], 07/12/2023 14:23:16 07/12/19 24 07/12/2023 LIPID PANEL HDL cholesterol 45 mg/dL 40- Not Available [facility] (Lab) [address] [place], [address], 07/12/2023 14:23:16 07/12/19 24 07/12/2023 LIPID PANEL [...] WILL NOT BE REPOR MIHIR. Not Available [facility] (Lab) [address] [place], [address], 07/12/2023 14:23:16 07/12/19 24 07/12/2023 COMPR EHENS CHAU METAB OLIC PANEL sodium 138 mmol/ L 137-14 5 Not Available [facility] (Lab) [address] [place], [address], 07/12/2023 14:23:28 07/12/19 24 07/12/2023 COMPR EHENS CHAU METAB OLIC PANEL potassium 4.6 mmol/ L 3.5-5. 1 Not Available [facility] (Lab) [address] [place], [address], 07/12/2023 14:23:28 07/12/19 24 07/12/2023 COMPR EHENS CHAU METAB OLIC PANEL chloride 105 mmol/ L 98-107 Not Available [facility] (Lab) [address] [place], [address], 07/12/2023 14:23:28 07/12/19 24 07/12/2023 COMPR EHENS CHAU METAB OLIC PANEL carbon dioxide 26 mmol/ L 22-30 Not Available [facility] (Lab) [address] [place], [address], 07/12/2023 14:23:28 07/12/19 24 07/12/2023 COMPR EHENS CHAU METAB OLIC PANEL anion gap 11.6 mmol/ L 14-22 low Not Available [facility] (Lab) [address] [place], [address], 07/12/2023 14:23:28 07/12/19 24 07/12/2023 COMPR EHENS CHAU METAB OLIC PANEL glucose 124 mg/dL 70-99 high Not Available [facility] (Lab) [address] [place], [address], 07/12/2023 14:23:28 07/12/19 24 07/12/2023 COMPR EHENS CHAU METAB OLIC PANEL BUN 14 mg/dL 8-19 Not Available [facility] (Lab) [address] [place], [address], 07/12/2023 14:23:28 07/12/19 24 07/12/2023 COMPR EHENS CHAU METAB OLIC PANEL creatinine 0.74 mg/dL 0.66-1 .25 Not Available [facility] (Lab) [address] [place], [address], 07/12/2023 14:23:28 07/12/19 24 07/12/2023 COMPR EHENS CHAU METAB OLIC PANEL GFR >60 Refer ence Range : [place] ge GFR Healt hy Adult : >60 [...] calcu lator is avail able on the [facility] websi te: https ://ww w.kid trang.o rg/pr ofess ional s/kdo qi/gf r_cal culat or Not Available [facility] (Lab) [address] [place], [address], 07/12/2023 14:23:28 07/12/19 24 07/12/2023 COMPR EHENS CHAU METAB OLIC PANEL alkaline phosphatase 91 U/L 38-126 Not Available [facility] (Lab) [address] [place], [address], 07/12/2023 14:23:28 07/12/19 24 07/12/2023 COMPR EHENS CHAU METAB OLIC PANEL alanine aminotransfe rase 22 U/L 0-35 Not Available [facility] (Lab) [address] [place], [address], 07/12/2023 14:23:28 07/12/19 24 07/12/2023 COMPR EHENS CHAU METAB OLIC PANEL aspartate aminotransfe rase 23 U/L 15-37 Not Available [facility] (Lab) [address] [place], [address], 07/12/2023 14:23:28 07/12/19 24 07/12/2023 COMPR EHENS CHAU METAB OLIC PANEL bilirubin, total 0.80 mg/dL 0.20-1 .30 Not Available [facility] (Lab) [address] [place], [address], 07/12/2023 14:23:28 07/12/19 24 07/12/2023 COMPR EHENS CHAU METAB OLIC PANEL calcium 10.3 mg/dL 8.4-10 .2 high Not Available [facility] (Lab) [address] [place], [address], 07/12/2023 14:23:28 07/12/19 24 07/12/2023 COMPR EHENS CHAU METAB OLIC PANEL total protein 7.2 g/dL 6.3-8. 2 Not Available [facility] (Lab) [address] [place], [address], 07/12/2023 14:23:28 07/12/19 24 07/12/2023 COMPR EHENS CHAU METAB OLIC PANEL albumin 4.4 g/dL 3.0-4. 4 Not Available [facility] (Lab) [address] [place], [address], 07/12/2023 14:23:28 07/12/19 24 07/12/2023 COMPR EHENS CHAU METAB OLIC PANEL globulin 2.8 g/dL 2.6-4. 2 Not Available [facility] (Lab) [address] [place], [address], 07/12/2023 14:23:28 07/12/19 24 07/12/2023 COMPR EHENS CHAU METAB OLIC PANEL A/G ratio 1.6 ratio 1.0-2. 0 Not Available [facility] (Lab) [address] [place], [address], 07/12/2023 14:23:28 07/12/19 24 07/12/2023 T4 FREE free T4 1.31 NG/dL 0.78-2 .19 Not Available [facility] (Lab) [address] [place], [address], 07/12/2023 14:38:45 07/12/19 24 07/12/2023 VITAM IN D 25-HY DROXY vd25oh 21.9 NG/mL 30-100 low Vitam in D Statu s: Defic ient: <20 ng/mL Insuf ficie nt: 20-29 ng/mL Suffi cient : 30-10 0 ng/mL Not Available [facility] (Lab) [address] [place], [address], 07/12/2023 14:39:06 07/12/19 24 07/12/2023 TSH thyroid-stim ulating hormone 11.600 uIU/m L 0.465- 4.680 high Not Available [facility] (Lab) [address] [place], [address], 07/12/2023 15:02:58 07/12/19 24 07/12/2023 MICRO ALBUM IN RANDO M URINE microalbumin , urine <6.0 mg/L 0.0-16 .6 Not Available [facility] (Lab) [address] [place], [address], 07/12/2023 15:43:34 07/12/19 24 07/12/2023 HEMOG LOBIN A1C HA1C 5.6 % 4.0-6. 0 Diabe shaun Scree efren Crite len: <5.7% Consi stent with absen ce of diabe shaun 5.7-6 .4% Consi stent with incre ased risk for diabe shaun (pred iabet es) >OR=6 .5% Consi stent with diabe shaun REFER ENCE: Diabe shaun Care 2016, 39(Enriquez ppl.1 ):s13 -s22 Not Available [facility] (Lab) [address] [place], [address], 07/12/2023 16:17:14 10/16/19 24 10/16/2023 CBC/C OMPLE TE BLD COUNT W/DIF F white blood cells 5.0 x10'3 /uL 4.2-10 .8 Not Available [facility] (Lab) [address] [place], [address], 10/16/2023 13:12:37 10/16/19 24 10/16/2023 CBC/C OMPLE TE BLD COUNT W/DIF F red blood cells 4.71 x10'6 /uL 3.80-5 .20 Not Available [facility] (Lab) [address] [place], [address], 10/16/2023 13:12:37 10/16/19 24 10/16/2023 CBC/C OMPLE TE BLD COUNT W/DIF F hemoglobin 13.2 g/dL 12.0-1 5.6 Not Available [facility] (Lab) [address] [place], [address], 10/16/2023 13:12:37 10/16/19 24 10/16/2023 CBC/C OMPLE TE BLD COUNT W/DIF F hematocrit 41.1 % 35.7-4 5.7 Not Available [facility] (Lab) [address] [place], [address], 10/16/2023 13:12:37 10/16/19 24 10/16/2023 CBC/C OMPLE TE BLD COUNT W/DIF F mean red cell volume 87.3 fL 82.0-9 9.0 Not Available [facility] (Lab) [address] [place], [address], 10/16/2023 13:12:37 10/16/19 24 10/16/2023 CBC/C OMPLE TE BLD COUNT W/DIF F mean red cell hemoglobin 28.0 pg 27.0-3 3.0 Not Available [facility] (Lab) [address] [place], [address], 10/16/2023 13:12:37 10/16/19 24 10/16/2023 CBC/C OMPLE TE BLD COUNT W/DIF F mean RBC HGB concentratio n 32.1 g/dL 31.0-3 6.0 Not Available [facility] (Lab) [address] [place], [address], 10/16/2023 13:12:37 10/16/19 24 10/16/2023 CBC/C OMPLE TE BLD COUNT W/DIF F red cell distribution width 14.8 % 11.8-1 5.5 Not Available [facility] (Lab) [address] [place], [address], 10/16/2023 13:12:37 10/16/19 24 10/16/2023 CBC/C OMPLE TE BLD COUNT W/DIF F platelets 300 x10'3 /uL 150-40 0 Not Available [facility] (Lab) [address] [place], [address], 10/16/2023 13:12:37 10/16/19 24 10/16/2023 CBC/C OMPLE TE BLD COUNT W/DIF F mean platelet volume 10.7 fL 9.0-12 .4 Not Available [facility] (Lab) [address] [place], [address], 10/16/2023 13:12:37 10/16/19 24 10/16/2023 CBC/C OMPLE TE BLD COUNT W/DIF F neutrophils 57.8 % 39.0-7 2.0 Not Available [facility] (Lab) [address] [place], [address], 10/16/2023 13:12:37 10/16/19 24 10/16/2023 CBC/C OMPLE TE BLD COUNT W/DIF F lymphocytes 21.2 % 16.0-4 7.0 Not Available [facility] (Lab) [address] [place], [address], 10/16/2023 13:12:37 10/16/19 24 10/16/2023 CBC/C OMPLE TE BLD COUNT W/DIF F monocytes 9.8 % 5.0-12 .0 Not Available [facility] (Lab) [address] [place], [address], 10/16/2023 13:12:37 10/16/19 24 10/16/2023 CBC/C OMPLE TE BLD COUNT W/DIF F eosinophils 9.8 % 1.0-7. 0 high Not Available [facility] (Lab) [address] [place], [address], 10/16/2023 13:12:37 10/16/19 24 10/16/2023 CBC/C OMPLE TE BLD COUNT W/DIF F basophils 1.0 % 0.0-2. 0 Not Available [facility] (Lab) [address] [place], [address], 10/16/2023 13:12:37 10/16/1910/16/2023 CBC/C OMPLE TE BLD COUNT W/DIF F immature granulocytes 0.4 % 0.00-0 .50 Not Available [facility] (Lab) [address] [place], [address], 10/16/2023 13:12:37 10/16/19 24 10/16/2023 CBC/C OMPLE TE BLD COUNT W/DIF F neutrophils, absolute count 2.89 x10'3 /uL 1.5-8. 0 Not Available [facility] (Lab) [address] [place], [address], 10/16/2023 13:12:37 10/16/19 24 10/16/2023 CBC/C OMPLE TE BLD COUNT W/DIF F lymphocytes, absolute count 1.06 x10'3 /uL 1.07-3 .43 low Not Available [facility] (Lab) [address] [place], [address], 10/16/2023 13:12:37 09/09/10/16/2023 CBC/C OMPLE TE BLD COUNT W/DIF F monocytes, absolute count 0.49 x10'3 /uL 0.29-0 .99 Not Available [facility] (Lab) [address] [place], [address], 10/16/2023 13:12:37 10/16/19 24 10/16/2023 CBC/C OMPLE TE BLD COUNT W/DIF F eosinophils, absolute count 0.49 x10'3 /uL 0.02-0 .53 Not Available [facility] (Lab) [address] [place], [address], 10/16/2023 13:12:37 10/16/19 24 10/16/2023 CBC/C OMPLE TE BLD COUNT W/DIF F basophils, absolute count 0.05 x10'3 /uL 0.01-0 .08 Not Available [facility] (Lab) [address] [place], [address], 10/16/2023 13:12:37 10/16/19 24 10/16/2023 CBC/C OMPLE TE BLD COUNT W/DIF F immature granulocytes ,absolute 0.02 x10'3 /uL 0.00-0 .05 Not Available [facility] (Lab) [address] [place], [address], 10/16/2023 13:12:37 10/16/19 24 10/16/2023 CBC/C OMPLE TE BLD COUNT W/DIF F nucleated red blood cells 0.0 % -0 Not Available [facility] (Lab) [address] [place], [address], 10/16/2023 13:12:37 10/16/19 24 10/16/2023 CBC/C OMPLE TE BLD COUNT W/DIF F NRBC# 0.00 x10'3 /uL Not Available [facility] (Lab) [address] [place], [address], 10/16/2023 13:12:37 10/16/19 24 10/16/2023 COMPR EHENS CHAU METAB OLIC PANEL sodium 137 mmol/ L 137-14 5 Not Available [facility] (Lab) [address] [place], [address], 10/16/2023 13:35:13 10/16/19 24 10/16/2023 COMPR EHENS CHAU METAB OLIC PANEL potassium 4.6 mmol/ L 3.5-5. 1 Not Available [facility] (Lab) [address] [place], [address], 10/16/2023 13:35:13 10/16/19 24 10/16/2023 COMPR EHENS CHAU METAB OLIC PANEL chloride 105 mmol/ L 98-107 Not Available [facility] (Lab) [address] [place], [address], 10/16/2023 13:35:13 10/16/19 24 10/16/2023 COMPR EHENS CHAU METAB OLIC PANEL carbon dioxide 27 mmol/ L 22-30 Not Available [facility] (Lab) [address] [place], [address], 10/16/2023 13:35:13 10/16/19 24 10/16/2023 COMPR EHENS CHAU METAB OLIC PANEL anion gap 9.6 mmol/ L 14-22 low Not Available [facility] (Lab) [address] [place], [address], 10/16/2023 13:35:13 10/16/19 24 10/16/2023 COMPR EHENS CHAU METAB OLIC PANEL glucose 135 mg/dL 70-99 high Not Available [facility] (Lab) [address] [place], [address], 10/16/2023 13:35:13 10/16/19 24 10/16/2023 COMPR EHENS CHAU METAB OLIC PANEL BUN 16 mg/dL 8-19 Not Available [facility] (Lab) [address] [place], [address], 10/16/2023 13:35:13 10/16/1910/16/2023 COMPR EHENS CHAU METAB OLIC PANEL creatinine 0.65 mg/dL 0.66-1 .25 low Not Available [facility] (Lab) [address] [place], [address], 10/16/2023 13:35:13 10/16/19 24 10/16/2023 COMPR EHENS CHAU METAB OLIC PANEL GFR >60 Refer ence Range : [place] ge GFR Healt hy Adult : >60 [...] on the [facility] websi te: https ://nela costello.onel garnett/pr brandi esquivelal s/kdo qi/gf r_cal culat or Not Available [facility] (Lab) [address] [place], [address], 10/16/2023 13:35:13 10/16/192024 COMPR EHENS CHAU METAB OLIC PANEL alkaline phosphatase 92 U/L 38-126 Not Available [facility] (Lab) [address] [place], [address], 10/16/2023 13:35:13 10/16/19 24 10/16/2023 COMPR EHENS CHAU METAB OLIC PANEL alanine aminotransfe rase 29 U/L 0-35 Not Available [facility] (Lab) [address] [place], [address], 10/16/2023 13:35:13 10/16/19 24 10/16/2023 COMPR EHENS CHAU METAB OLIC PANEL aspartate aminotransfe rase 25 U/L 15-37 Not Available [facility] (Lab) [address] [place], [address], 10/16/2023 13:35:13 10/16/19 24 10/16/2023 COMPR EHENS CHAU METAB OLIC PANEL bilirubin, total 0.70 mg/dL 0.20-1 .30 Not Available [facility] (Lab) [address] [place], [address], 10/16/2023 13:35:13 10/16/19 24 10/16/2023 COMPR EHENS CHAU METAB OLIC PANEL calcium 10.8 mg/dL 8.4-10 .2 high Not Available [facility] (Lab) [address] [place], [address], 10/16/2023 13:35:13 10/16/19 24 10/16/2023 COMPR EHENS CHAU METAB OLIC PANEL total protein 7.6 g/dL 6.3-8. 2 Not Available [facility] (Lab) [address] [place], [address], 10/16/2023 13:35:13 10/16/19 24 10/16/2023 COMPR EHENS CHAU METAB OLIC PANEL albumin 4.5 g/dL 3.0-4. 4 high Not Available [facility] (Lab) [address] [place], [address], 10/16/2023 13:35:13 10/16/19 24 10/16/2023 COMPR EHENS CHAU METAB OLIC PANEL globulin 3.1 g/dL 2.6-4. 2 Not Available [facility] (Lab) [address] [place], [address], 10/16/2023 13:35:13 10/16/19 24 10/16/2023 COMPR EHENS CHAU METAB OLIC PANEL A/G ratio 1.5 ratio 1.0-2. 0 Not Available [facility] (Lab) [address] [place], [address], 10/16/2023 13:35:13 10/16/19 24 10/16/2023 LIPID PANEL cholesterol 201 mg/dL 140-19 9 high NIH MATEUS NSUS RECOM MENDA TION FOR SAEED STERO L: ADULT CHILD LOW RISK: <200 <170 BORDE RLINE : <200- 239 ----- HIGH RISK: >240 >200 Not Available [facility] (Lab) [address] [place], [address], 10/16/2023 13:35:43 10/16/19 24 10/16/2023 LIPID PANEL triglyceride s 189 mg/dL 0-150 high NIH MATEUS NSUS REPOR T RECOM MENDA TION FOR TRIGL YCERI DAVID: ADULT CHILD LOW RISK: <150 ----- BODER LINE: 150-1 99 ----- HIGH RISK: >200 ----- Not Available [facility] (Lab) [address] [place], [address], 10/16/2023 13:35:43 10/16/19 24 10/16/2023 LIPID PANEL HDL cholesterol 43 mg/dL 40- Not Available [facility] (Lab) [address] [place], [address], 10/16/2023 13:35:43 10/16/19 24 10/16/2023 LIPID PANEL [...] WILL NOT BE REPOR MIHIR. Not Available [facility] (Lab) [address] [place], [address], 10/16/2023 13:35:43 10/16/19 24 10/16/2023 T4 FREE free T4 1.64 NG/dL 0.78-2 .19 Not Available [facility] (Lab) [address] [place], [address], 10/16/2023 13:39:42 10/16/19 24 10/16/2023 TSH thyroid-stim ulating hormone 3.940 uIU/m L 0.465- 4.680 Not Available [facility] (Lab) [address] [place], [address], 10/16/2023 13:53:31 10/16/19 24 10/16/2023 HEMOG LOBIN A1C HA1C 6.0 % 4.0-6. 0 Diabe shaun Scree efren Crite len: <5.7% Consi stent with absen ce of diabe shaun 5.7-6 .4% Consi stent with incre ased risk for diabe shaun (pred iabet es) >OR=6 .5% Consi stent with diabe shaun REFER ENCE: Diabe shaun Care 2016, 39(Enriquez ppl.1 ):s13 -s22 Not Available [facility] (Lab) [address] [place], [address], 10/16/2023 16:10:26 10/16/19 24 10/16/2023 MICRO ALBUM IN RANDO M URINE microalbumin , urine 10.9 mg/L 0.0-16 .6 Not Available [facility] (Lab) [address] [place], [address], 10/16/2023 18:01:47 10/16/19 24 10/16/2023 VITAM IN D 25-HY DROXY [id number] 21.1 NG/mL 30-100 low Vitam in D Statu s: Defic ient: <20 ng/mL Insuf ficie nt: 20-29 ng/mL Suffi cient : 30-10 0 ng/mL Not Available [facility] (Lab) [address] [place], [address], 10/16/2023 22:36:15 03/21/19 24 03/21/2023 US, echoc ardio gram No observ ation record ed. [email or web address] [place] [address] [facility] [address] , [place], [address], 10/16/2023 18:16:08 07/07/19 24 07/07/2023 CT, angio gram, head + neck, w/wo contr ast No observ ation record ed. [email or web address] [place] [address] [address], [place], [address], 10/18/2023 11:53:31 08/21/19 24 [email or web address] , scree efren, digit al, bilat eral [facility] [address] [place] [address] Patien t Name: HOA MART Access ion #: [id number] Sex: F : 1945 1 Dictat ed By: Trixie Hernandez Attend ing Physic tamiko: MORENA ABDUL Orderi Physic tamiko: MORENA ABDUL Exam Date: 2023 [...] at 2023 12:04: 28 PM Page 1 [email or web address] [facility] ([facility]) [address] [place], [address], 09/08/2023 15:47:35 10/30/19 24 10/30/2023 CT, angio gram, chest + abdom en + pelvi s, w/ contr ast No observ ation record ed. [email or web address] [facility] [address] [place], [address], 02/05/2024 14:19:23 05/07/19 25 05/06/2024 [place], thyro id No observ ation record ed. [address], [address], 05/06/2024 17:41:50 06/09/19 25 06/08/2024 imagi ng/di agnos tic resul t No observ ation record ed. [address], [address], 06/08/2024 21:10:23 06/10/19 25 06/08/2024 imagi ng/di agnos tic resul t No observ ation record ed. [address] [address], [place], [address], 06/09/2024 13:51:50 Result Notes None recorded. Problems Name Problem SNOMED Code Status Onset Date Resolution Date Notes Provider Name and Address Organization Details Recorded Time Non-alcoh olic fatty liver 384964223 Active 2021 Not Available [facility] 3 08:15:39 Hypolipid emia 116227078 Completed 201702/20/2017 Not Available [facility] 3 06:02:36 Vitamin D deficienc y 17723242 Active 2021 Not Available [facility] 3 08:15:39 Iron deficienc y 32437135 Active 2017 Not Available [facility] 3 08:15:39 Hypertens chau disorder 32060004 Active 2017 Not Available [facility] 3 08:15:39 Vertigo 061870486 Active 2021 Not Available [facility] 3 08:15:39 Hypothyro idism 55488700 Active 2017 Not Available [facility] 3 08:15:39 Aneurysm of thoracic aorta 967241437 Active 2021 Not Available [facility] 3 08:15:39 Pain of hip region 24053161 Active Not Available [facility] 3 08:15:39 Hyperlipi demia 77475154 Active 2017 Not Available [facility] 3 08:15:39 Dyspnea on exertion 98178077 Active 2022 Not Available [facility] 3 08:15:39 Hydrouret er 27732026 Active 2021 Not Available [facility] 3 08:15:39 Liver enzymes level above reference range 978054781 Active 2021 Not Available [facility] 3 08:15:39 Chronic kidney disease 874674444 Active 2021 Not Available [facility] 3 08:15:39 Sleep apnea 75953129 Active 2022 Not Available [facility] 3 08:15:39 Obstructi ve sleep apnea syndrome 33596852 Active 2022 Not Available [facility] 3 08:15:39 Hyperglyc emia 43629728 Active 2021 Not Available [facility] 3 08:15:39 COVID-19 823518879 Active 2021 Not Available [facility] 3 08:15:39 Pulmonary emphysema 75512859 Active 2021 Not Available [facility] 3 08:15:39 Secondary pulmonary hypertens ion 05370851 Active 2022 Not Available [facility] 3 08:15:39 Hypoxia 472021720 Active 2022 [facility] Available [facility] 3 08:15:39 Alpha-1-a ntitrypsi n deficienc y 64528250 Active 2022 Not Available [facility] 3 08:15:39 Anemia 491632539 Active 2022 Not Available [facility] 3 08:15:39 Essential hypertens ion 02136767 Active 2022 Not Available [facility] 3 08:15:39 Chronic obstructi ve pulmonary disease 44093464 Active 2022 Not Available [facility] 3 08:15:39 Skin lesion 06199146 Active 2022 Not Available [facility] 3 08:15:39 Increased liver function 70826911 Active 2022 Not Available [facility] 3 08:15:39 Type 2 diabetes mellitus without complicat ion 934563218 Active 2022 Not Available [facility] 3 08:15:39 Asthma 126887155 Active 2022 Not Available [facility] 3 08:15:39 Hypercalc emia 65162388 Active 2022 Not Available [facility] 3 08:15:39 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 Lashon Jacobson null, [facility] [employer] [facility] 3 15:52:24 Bleeding from nose 875857719 Active 2023 Sanjuanita talamantes MD [address] [facility], [place], [address] , [facility] 4 10:53:56 Pain of right hip joint 18344808286 9102 Active 2023 Sanjuanita talamantes MD [address], [place], [address] , [facility] [employer] [facility] 4 11:25:29 Moderate recurrent major depressio n 74750525 Active 2023 Sanjuanita talamantes MD [address], [place], [address] , [facility] [employer] [facility] 4 11:26:04 Diabetes mellitus 12208118 Active 2024 Wilma Benites MA null, [facility] [employer] [facility] 5 13:27:40 Notes:[facility] home sleep study 03/15/22 AHI = 4 [facility] diagnostic sleep study 06/29/22 AHI = [...] and Address Organization Details Recorded Time 01/17/20 total replacement of hip completed Brandi Gifford MA [facility] [employer] [facility] 05/29/2024 11:36:27 07/19/19 Medicare Wellness CPT Code, subsequent completed Deven Stacy LPN [facility] [employer] [facility] 07/17/2023 18:32:38 07/19/19 24 Advanced Care Planning completed RADHA Rueda - [facility] [place] [facility] 07/19/2023 11:12:06 04/28/19 23 Medicare Wellness CPT Code, subsequent completed Adele Valencia RN [facility] [employer] [facility] 04/27/2022 11:20:50 04/28/19 23 Advanced Care Planning completed Adele Valencia RN [facility] 04/27/2022 11:23:21 01/01/20 20 excision of skin carcinoma completed Not Available [facility] 04/06/2022 05:56:38 10/22/19 17 Ther radiology tx plng smpl completed Not Available [facility] 04/06/2022 05:56:38 09/18/19 13 Stent placemt retro carotid completed Not Available [facility] 04/06/2022 05:56:38 02/17/19 11 Cholecystectomy completed Not Available [facility] 04/06/2022 05:56:38 Nipple/areola reconstruction completed Not Available [facility] 04/06/2022 05:56:38 excision of skin carcinoma completed Not Available [facility] 04/06/2022 05:56:38 Skin Graft completed Not Available [facility] 04/06/2022 05:56:38 Colonoscopy completed Not Available [facility] 04/06/2022 05:56:38 Hysterectomy completed Not Available [facility] 04/06/2022 05:56:38 Appendectomy completed Not Available [facility] 04/06/2022 05:56:38 EGD completed Not Available [facility] 04/06/2022 05:56:38 Imaging Results None recorded. Procedure Notes None recorded. Medical Equipment None Reported. Allergies Allergen ID Allergen Name Allergen Category Reaction Reaction Severity Criticality Documentation Date Start Date Code Code System Note Provider Name and Address Organization Details Recorded Time 67611 Non-stero idal anti-infl ammatory agent (product) medicatio n nausea severe Not available 04/06/2022 86098 005 SNOMED Not Available [facility] 3 06:09:23 95135 Demerol medicatio n hallucina tions Not available Not available 04/06/2022 21595 1 RxNorm Not Available [facility] 3 06:09:23 41272 codeine medicatio n itching Not available Not available 04/06/2022 2670 RxNorm Not Available [facility] 3 06:09:23 Medications Name Sig Start [...] CAPSULE BY MOUTH EVERY 12 HOURS FOR 7 DAYS active Not Available Not Available No t Available levothyro xine 125 mcg tablet Take 1 tablet every day by oral route for 30 days. 10/16 completed Not Available Not Available Not Available clotrimaz ole-betam ethasone 1 %-0.05 % topical cream APPLY CREAM TO AFFECTED AREA ONCE DAILY AFTER WASHING. active Not Available Not Available No t Available Unithroid 150 mcg tablet Take 1 tablet by mouth once daily 2024 active Not Available Not Available Not Avai lable hydrochlo rothiazid e 12.5 mg capsule TAKE 1 CAPSULE BY MOUTH ONCE DAILY 05/29 completed Not Available Not Available Not Available sertralin e 25 mg tablet TAKE 1 TABLET BY MOUTH ONCE DAILY active Not Available Not Available No t Available mupirocin 2 % topical ointment APPLY TOPICALL [...] TAKE 1 CAPSULE BY MOUTH ONCE A WEEK. TAKE WITH OTC CALCIUM active Not Available Not Available No t Available diclofena c 1 % topical gel [...] atin. Valid: 05/02/23 until futher notice. UT# [id number] 335. Not Available Not Available Not Available [...] Updated DateTime 4 157.48 cm 33.7 kg/m2 41498 g 97.2 [degF] 72 /min 124 mm[Hg] 80 mm[Hg] MALIKA Wilkins [employer] 4 09:47:31 Date Recorded Body height Body mass index (BMI) Body weight Body temperature Heart rate Oxygen saturation Oxygen saturation in Arterial blood by Pulse oximetry Systolic blood pressure Diastolic blood pressure Provider Name and Address Organization Details Last Updated DateTime 5 157.48 cm 34.8 kg/m2 95133.5 5 g 98.4 [degF] 64 /min 94 % 94 % 140 mm[Hg] 84 mm[Hg] Brandi Gifford MA [employer] 5 11:32:54 Date Recorded Body height Body mass index (BMI) Body weight Body temperature Systolic blood pressure Diastolic blood pressure Provider Name and Address Organization Details Last Updated DateTime 4 157.48 cm 34.4 kg/m2 98148.3 7 g 97.2 [degF] 126 mm[Hg] 78 mm[Hg] MALIKA Wilkins [place] [employer] [facility] [employer] [facility] 4 10:42:51 Date Recorded Body height Body mass index (BMI) Body weight Body temperature Heart rate Oxygen saturation Oxygen saturation in Arterial blood by Pulse oximetry Systolic blood pressure Diastolic blood pressure Provider Name and Address Organization Details Last Updated DateTime 4 157.48 cm 34.4 kg/m2 63291.3 7 g 97.8 [degF] 82 /min 91 % 91 % 142 mm[Hg] 80 mm[Hg] Deven Stacy LPN [facility] [employer] 4 10:37:44 Social History Question Answer Notes LastModified by Organization Details LastModified Time Tobacco Smoking Status Former Smoker Not Available [facility] 04/06/2022 05:54:10 Do You Have An Advance Directive? No Information Provided Information not available 04/27/2022 Are You Blind Or Do You Have Difficulty Seeing? No MIGRATION.551 [id number] Information not available 04/06/2022 Is Blood Transfusion Acceptable In An Emergency? Yes [email or web address] Information not available 07/19/2023 What Is Your Level Of Caffeine Consumption? Moderate MIGRATION.661 [id number] Information not available 04/06/2022 In The 14 Days Before Symptom Onset, Have You Had Close Contact With A Laboratory-conf irmed COVID-19 While That Case Was Ill? No MIGRATION.983 [id number] Information not available 04/06/2022 In The 14 Days Before Symptom Onset, Have You Had Close Contact With A Person Who Is Under Investigation For COVID-19 While That Person Was Ill? No MIGRATION.012 [id number] Information not available 04/06/2022 Are You Deaf Or Do You Have Serious Difficulty Hearing? No MIGRATION.183 3990273 Information not available 04/06/2022 What Type Of Diet Are You Following? DIABETIC Information not available 04/27/2022 What Is The Highest Grade Or Level Of School You Have Completed Or The Highest Degree You Have Received? LU11104-4 MIGRATION.920 8771019 Information not available 04/06/2022 Have There Been Any Changes To Your Family Or Social Situation? No MIGRATION.823 [id number] Information not available 04/06/2022 What Is The Fluoride Status Of Your Home? Fluoridated MIGRATION.510 1315644 Information not available 04/06/2022 When Did You Quit Smoking? 1-5yearssincelastc igarette 03/09/21 MIGRATION.204 8542576 Information not available 04/06/2022 Are There Any Guns Present In Your Home? No MIGRATION.582 2655807 Information not available 04/06/2022 Do You Use Insect Repellent Routinely? No MIGRATION.954 4959443 Information not available 04/06/2022 [facility] MIGR[facility].033 3940184 Information not available 04/06/2022 Presence Of Domestic [...] Do You Have A Medical Power Of Pharmaceutical Detailer? No MIGRATION.226 5587047 Information not available 04/06/2022 What Was The Date Of Your Most Recent Tobacco Screening? 05/29/2024 [email or web address] Information not available 05/29/2024 Do You Have Any Pets? No MIGRATION.448 5223866 Information not available 04/06/2022 What Is Your Relationship Status? MIGRATION.009 9561483 Information not available 04/06/2022 Do You Use Your Seat Belt Or Car Seat Routinely? Yes MIGRATION.305 2866470 Information not available 04/06/2022 Do You Have Smoke And Carbon Monoxide Detectors In Your Home? Yes MIGRATION.778 1772546 Information not available 04/06/2022 At What Age Did You Start Smoking Tobacco? 26 MIGRATION.752 5720637 Information not available 04/06/2022 Are You Passively Exposed To Smoke? No MIGRATION.111 2768056 Information not available 04/06/2022 Are There Any Smokers In Your House? No MIGRATION.239 5327616 Information not available 04/06/2022 Do You Use Sunscreen Routinely? No MIGRATION.893 3599921 Information not available 04/06/2022 Has Tobacco Cessation Counseling Been Provided? No MIGRATION.068 1802385 Information not available 04/06/2022 How Many Years Have You Smoked Tobacco? 50 MIGRATION.508 5358230 Information not available 04/06/2022 Have You Recently Traveled Abroad? No MIGRATION.179 2970359 Information not available 04/06/2022 Do You Have Difficulty Walking Or Climbing Stairs? Yes MIGRATION.299 3869081 Information not available 04/06/2022 Do You Have Any Dietary Restrictions? No MIGRATION.894 3667026 Information not available 04/06/2022 Sex: Female Functional Status Question Answer Note LastModified by Compliance Assurance ion Details LastModified Time Do you use any illicit or recreational drugs? No MIGRATION.365592 9836 Information not available 04/06/2022 Do you or have you ever used any other forms of tobacco or nicotine? No MIGRATION.554728 4492 Information not available 04/06/2022 What is your level of alcohol consumption? None MIGRATION.931399 8709 Information not available 04/06/2022 Are you currently employed? No Retired [email or web address] Information not available 07/19/2023 Do you have transportation difficulties? No MIGRATION.517771 9415 Information not available 04/06/2022 Are you able to walk? YESWOREST MIGRATION.439473 0633 Information not available 04/06/2022 Do you have difficulty doing errands alone? No MIGRATION.820118 1234 Information not available 04/06/2022 Are you able to care for yourself? Yes MIGRATION.858678 9187 Information not available 04/06/2022 Do you have difficulty dressing or bathing? No MIGRATION.292023 5974 Information not available 04/06/2022 What is your exercise level? None MIGRATION.873616 7822 Information not available 04/06/2022 Mental Status Question Answer Note LastModified by [employer] ion Details LastModified Time Do you feel stressed (tense, restless, nervous, or anxious, or unable to sleep at night)? [id number] MIGRATION.29695645 26 Information not available 04/06/2022 Do you have difficulty concentrating, remembering or making decisions? No MIGRATION.99147522 26 Information not available 04/06/2022 Family History Relationship Description Onset Age of this Age Resolved Age Notes LastModified by Organization Details LastModified Time Brother Aneurysm MIGRATION.390 [id number] Not available 04/06/2022 05:56:39 Brother Carcinoma of prostate MIGRATION.587 8369388 Not available 04/06/2022 05:56:39 Father Carcinoma of prostate MIGRATION.130 [id number] Not available 04/06/2022 05:56:39 Sister Hodgkin's disease (clinical) MIGRATION.755 [id number] Not available 04/06/2022 05:56:39 Mother Well adult MIGRATION.760 [id number] Not available 04/06/2022 05:56:40 Medical History Condition Response NERVE DISEASE N BLINDNESS N RHEUMATIC FEVER N KIDNEY STONES N BLADDER PROBLEMS N MRSA N OTHER # 1 N POLIO N LUNG DISEASE/DISORDER N HISTORY OF DRUG ABUSE N RADIATION / CHEMOTHERAPY N COPD Y Other # 2 N BLOOD DISEASES N EAR OR HEARING PROBLEMS N MUMPS N SHINGLES N DEPRESSION (INCLUDING POST ) N BOWEL PROBLEMS N STROKE/TIA N ULCERS N BENIGN PROSTATIC [...] PF 3 completed Tavo Mittal RMA null, [facility] 12/01/2022 15:53:55 Influenza, high-dose, quadrivalent, PF 0 completed WINSTON WilkinsA null, [facility] 09/21/2023 15:05:54 COVID-19, mRNA, LNP-S, PF, 30 mcg/0.3 mL dose 1 completed Rain Gill RMA null, [facility] 09/21/2023 15:05:54 COVID-19, mRNA, LNP-S, PF, 30 mcg/0.3 mL dose 1 completed Rain Gill RMA null, [facility] 09/21/2023 15:05:54 COVID-19, mRNA, LNP-S, PF, 30 mcg/0.3 mL dose, talia-sucrose 2 completed Rain Gill RMA null, [facility] 09/21/2023 15:05:54 pneumococcal polysaccharide PPV23 6 completed Rain Gill RMA null, [facility] 09/21/2023 15:05:54 Tdap 3 completed Rain Gill RMA null, [facility] 09/21/2023 15:05:54 Influenza, high-dose, trivalent, PF 6 completed Rain Gill RMA null, [facility] 09/21/2023 15:05:54 Influenza, high-dose, trivalent, PF 9 completed Rain Gill RMA null, [facility] 09/21/2023 15:05:54 Influenza, high-dose, trivalent, PF 8 completed Rain Gill RMA null, [facility] 09/21/2023 15:05:54 Influenza, high-dose, trivalent, PF 7 completed Rain Gill RMA null, [facility] 09/21/2023 15:05:54 Influenza, split virus, trivalent, preservative 3 completed Rain Gill RMA null, [facility] 09/21/2023 15:05:54 Influenza, split virus, trivalent, preservative 5 completed [facility] 15:05:54 Influenza, split virus, quadrivalent, PF 1 completed [facility]23 15:05:54 RSV, recombinant, protein subunit RSVpreF, adjuvant reconstituted, 0.5 mL, PF 4 completed [facility]23 15:06:18 COVID-19, mRNA, LNP-S, PF, 100 mcg/0.5mL dose or 50 mcg/0.25mL dose 1 completed Rain Gill RMA null, [facility] 09/21/2023 15:05:54 COVID-19, mRNA, LNP-S, PF, 100 mcg/0.5mL dose or 50 mcg/0.25mL dose 1 completed Rain Gill RMA null, [facility] 09/21/2023 15:05:54 Influenza, high-dose, trivalent, PF 9 completed Rain Gill RMA null, [facility] 09/21/2023 15:05:54 influenza, unspecified formulation 8 completed Not Available [facility] 08/22/2022 08:15:40 Influenza, high-dose, quadrivalent, PF 1 completed Rain Carmichaels, MALIKA null, [facility] 09/21/2023 15:05:54 Influenza, high-dose, trivalent, PF 0 completed Rain Jairo, RMMahi null, [facility] 09/21/2023 15:05:54 influenza, unspecified formulation 7 completed Not Available [facility] 08/22/2022 08:15:40 pneumococcal polysaccharide PPV23 7 completed Not Available [facility] 08/22/2022 08:15:40 Pneumococcal conjugate PCV 13 6 completed Not Available [facility] 08/22/2022 08:15:40 Influenza, high-dose, quadrivalent, PF 2 completed Not Available [facility] 08/22/2022 08:15:40 Past Encounters Encounter ID Performer Location Encounter Start Date Encounter Closed Date Diagnosis/Indication Diagnosis SNOMED-CT Code Diagnosis ICD10 Code Diagnosis Note [id number] Sanjuanita talamantes MD [facility] Internal Med Mayra hawkins [address] [place] [address] [place] [address] 10/21/2020 00:00:00 10/21/2020 12:03:09 [id number] Sanjuanita talamantes MD [facility] Internal Med [place] hawkins [address] [place] [address] [place] [address] 04/19/2021 00:00:00 04/19/2021 10:34:18 [id number] Sanjuanita talamantes MD [facility] Internal Med [place] hawkins [address] [place] [address] [place] [address] 05/19/2021 00:00:00 05/19/2021 12:09:16 [id number] Sanjuanita talamantes MD [facility] Internal Med [place] [address] [facility] [place] [address] 09/22/2021 00:00:00 09/22/2021 12:42:46 [id number] Sanjuanita talamantes MD [facility] Internal Med [place] [address] [facility] [place] [address] 01/05/2022 00:00:00 01/05/2022 12:59:39 [id number] Joleen Gambino [facility] Pulmonolo gy [place] [address] [place] [address] 03/08/2022 00:00:00 03/08/2022 19:20:14 [id number] Joleen Gambino [facility] Pulmonolo gy [place] [address] [place] [address] 04/20/2022 12:17:43 04/21/2022 08:51:46 Pulmonary emphysema 64615866 J43.[address] chest completed 01/2022FIN DINGS:No [...] IGGs, Quantifero n GOLD all normal Hypoxia 469194427 R09.02 Per home sleep studySix minute walk normal Sleep apnea 13472677 G47 .30 Home study with AHI 4Severe desaturati ons, 417 minutes with saturation s below 89%Check in lab study Alpha-1-an titrypsin deficiency 57856494 E88.01 Alpha1 MZ with level of 83Extensiv [...] levels in 3 months Secondary pulmonary hypertension 66613016 I27.21 PFT normalHypo ivan during home sleep studyOrder for in lab study as above [id number] Sanjuanita talamantes MD [facility] Internal Med [place] hawkins [address] [facility] [place] [address] 04/27/2022 10:45:50 04/27/2022 11:52:52 Adult health examination 774566898 Z00.00 Screening for disorder 948597173 Z13.9 Screening - NAD 06928496 3 Z13.9 C-scope: Dr Judith waterman 10/02/17: [...] ing of the above Screening mammography 24 523248 Z12.31 Screening for osteoporosis 437623461 Z13.820 Vitamin D deficiency 347 54267 E55.9 Get on vit d weekly Hypothyroidism 14670033 E03.9 On euthyrox 137mcgs dailyDoes well Get labs Anemia 129746975 D64.[address] Alvarenga Essential hypertension 55571564 I10 On coreg 6.25mg dailyOn HCTZ 12.5mg daily Does wellGet labsShe did see Dr Jasbir MARTINS Hyperlipidemia 00518731 E78.5 On ASAOn simvastati n 40mg daily Does well Get labs Chronic ob structive pulmonary disease 56949087 J44.9 Sees Joleen Gambino NPNow to get a in lab sleep study as per her history Hyperglycemia 83385444 R 73.9 On metformin 500mg po bidNeeds to diet and exerciseNe eds to do labs and see eye and foot MD Increased liver function 37923143 R94.5 US liver 12/27/21CT A/P 01/13/2022 CMP: LFTs WNL 04/18/2022 Should see GI hepatology , states that she did not do this the last time as she did not have the ride Hydroureter 70795935 N13 .4 S/p CT A/P 01/13/2022 Pulmonary emphysema 8743 3001 J43.9 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 04/20/2022 , next apt 07/20/2022 Aneurysm o f thoracic aorta 120531241 I71.[address] Martell [facility], as per note 04/27/2022 , TAA is 4.2cm, f/u in 6 months [id number] Joleen Gambino, [employer] Pulmonolo gy [place] Ortiz [address] [place] [address] 07/20/2022 10:52:59 07/20/2022 11:49:23 Obstructive sleep apnea syndrome 48694816 G47.33 In lab study with AHI 9, [...] s for use, instructed on technique Hypoxia 543225223 R09.02 Per sleep studySix minute walk normalPAP as above Alpha-1-an titrypsin deficiency 65624724 E88.01 Alpha1 MZ with level of 83Extensiv [...] recheck in 6 months Secondary pulmonary hypertension 79118769 I27.21 PFT normalHypo ivan during in lab study and +OSATreatm ent as above Asthma 259549318 J45.90 9 PFT normalMeth acholine challenge positiveRA ST with several positivesI GE, IGGs, Quantifero n GOLD all normalDecl yenny maintenanc e medication [id number] Sanjuanita talamantes MD [facility] Internal Med [place] hawkins [address] [place] [address] 08/17/2022 10:08:33 08/17/2022 10:55:17 Screening - NAD 315290731 Z13.9 C-scope: Dr Judith waterman 10/02/17: Next [...] of the above Vitamin D deficiency 347 34030 E55.9 Get on vit d weekly Hypothyroidism 00508964 E03.9 On euthyrox 137mcgs dailyDoes well Get labs Anemia 115174543 D64.[address] Alvarenga Essential hypertension 07203169 I10 On coreg 6.25mg dailyOn HCTZ 12.5mg daily Does wellGet labsShe did see Dr Martell [facility] Hyperlipidemia 61636699 E78.5 On ASAOn simvastati n 40mg daily Does wellGet labs Chronic ob structive pulmonary disease 21429308 J44.9 Sees Joleen Gambino NPNow to get a in lab sleep study as per her history Hyperglycemia 52260938 R 73.9 On metformin 500mg po bidNeeds to diet and exerciseNe eds to do labs and see eye and foot Increased liver function 16864242 R94.5 US liver 12/27/21CT A/P 01/13/2022 CMP: LFTs WNL 04/18/2022 Should see GI hepatology , states that she did not do this the last time as she did not have the ride Hydroureter 10118032 N13 .4 S/p CT A/P 01/13/2022 Pulmonary emphysema 8743 3001 J43.9 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 Aneurysm o f thoracic aorta 089867335 I71.[address] Martell [facility], as per note 04/27/2022 , TAA is 4.2cm, f/u in 6 months Hypercalcemia 56299798 E 83.52 Will repeat the labs, declines any referrals, very mild corrected [id number] Joleen Gambino, [facility] Pulmonolo gy Lamoni [address] [place] [address] 09/14/2022 10:06:30 09/14/2022 10:54:21 Obstructive sleep apnea syndrome 86502208 G47.33 In lab study with AHI 9, [...] 30 days use, PRN for concerns Asthma 634002717 J45.90 9 PFT normalMeth acholine challenge positiveRA ST with several positivesI GE, IGGs, Quantifero n GOLD all normalDecl yenny maintenanc e medication Alpha-1-an titrypsin deficiency 16546908 E88.01 Alpha1 MZ with level of 83Extensiv [...] level 84 - recheck in 6 months [id number] Joleen Gambino, [facility] Pulmonolo gy Kam[place] Ortiz [address] [place] [address] 11/08/2022 09:23:22 11/08/2022 11:09:57 Obstructive sleep apnea syndrome 42285032 G47.33 In lab study with AHI 9, [...] least 4 hours prior to bedtime. Asthma 596783136 J45.90 9 PFT 04/2022 normalMeth acholine challenge 05/[address] with several positivesI GE, IGGs, Quantifero n GOLD all normalDecl yenny maintenanc e medication Will send for symbicort for rescue use as per new guidelines Alpha-1-an titrypsin deficiency 56791125 E88.01 Alpha1 MZ with level of 83Extensiv [...] has been seen in MZ population s. [id number] Sanjuanita talamantes MD [facility] Internal Med Mayra hawkins [address] [place] [address] 11/23/2022 10:07:16 11/23/2022 11:43:21 Screening - NAD 293338029 Z13.9 C-scope: Dr Judith waterman 10/02/17: Next [...] of the above Vitamin D deficiency 347 50451 E55.9 Get on vit d weekly Hypothyroidism 24351003 E03.9 On euthyrox 137mcgs dailyDoes well Get labs Anemia 651400466 D64.9 Does well Did see Dr Alvarenga Essential hypertension 77956893 I10 On coreg 6.25mg dailyOn HCTZ 12.5mg daily Does wellGet labsShe did see Dr Martell [facility] Hyperlipidemia 66081660 E78.5 On ASAOn simvastati n 40mg daily Does wellGet labs Chronic ob structive pulmonary disease 69089813 J44.9 Sees Joleen Gambino NPNow to get a in lab sleep study as per her history Hyperglycemia 93670655 R 73.9 On metformin 500mg po bid Needs to diet and exerciseNe eds to do labs and see eye and foot MD Increased liver function 69810824 R94.5 US liver 12/27/21CT A/P 01/13/2022 CMP: LFTs WNL 04/18/2022 Should see GI hepatology , states that she did not do this the last time as she did not have the ride Hydroureter 16369163 N13 .4 S/p CT A/P 01/13/2022 Pulmonary emphysema 8743 3001 J43.9 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, 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 Aneurysm o f thoracic aorta 672863280 I71.[address] Martell [facility], as per note 04/27/2022 , TAA is 4.2cm, f/u in 6 months Hypercalcemia 25840030 E 83.[address] Duran, may need to see ENT also [id number] Sanjuanita talamantes MD [facility] [place] [address] [facility] [place] [address] 03/22/2023 09:38:27 03/22/2023 10:02:07 Screening - NAD 171668402 Z13.9 C-scope: Dr Judith waterman 10/02/17: Next [...] of the above Vitamin D deficiency 347 87454 E55.9 Repeat the vit d level Hypothyroidism 69050114 E03.9 On euthyrox 137mcgs dailyDoes well Get labs Anemia 614222639 D64.9 Does well Did see Dr Alvarenga Essential hypertension 53594906 I10 On coreg 6.25mg dailyOn HCTZ 12.5mg daily Does wellGet labsShe did see Dr Jasbir MARTINS Hyperlipidemia 84625370 E78.5 On ASANot on simvastati n 40mg dailyOn atorvastat in 40mg daily Does wellGet labs Chronic ob structive pulmonary disease 43295197 J44.9 Seen Joleen Almanzarell NPNow to get a in lab sleep study as per her history Hyperglycemia 15113345 R 73.9 On metformin 500mg po bid Needs to diet and exerciseNe eds to do labs and see eye and foot Increased liver function 68076020 R94.5 US liver 12/27/21CT A/P 01/13/2022 CMP: LFTs WNL 04/18/2022 Should see GI hepatology , states that she did not do this the last time as she did not have the ride Hydroureter 47286029 N13 .4 S/p CT A/P 01/13/2022 Pulmonary emphysema 8743 3001 J43.9 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, 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 Aneurysm o f thoracic aorta 463507461 I71.[address] Martell [facility], as per note 04/27/2022 , TAA is 4.2cm, f/u in 6 months Hypercalcemia 02521120 E 83.52 NM parathyroi d scan 12/16/2022 Dr Duran, may need to see ENT also Screening mammography 24 010664 Z12.31 [id number] Sanjuanita talamantes MD [facility] [place] [address] [place] [address] [place] [address] 07/19/2023 10:24:43 07/19/2023 11:24:13 Adult health examination 306250006 Z00.00 Screening for disorder 141988808 Z13.9 Screening - NAD 38151026 3 Z13.9 C-scope: Dr Judith waterman 10/02/17: [...] of the above Vitamin D deficiency 347 41252 E55.9 Repeat the vit d level Hypothyroidism 63057423 E03.9 On levothyrox ine 137mcgs daily, will increase to 150mcgs daily as TSH is elevatedGe t US thyroidDoe s well Get labs Anemia 475547910 D64.[address] Alvarenga Essential hypertension 11445876 I10 On coreg 6.25mg dailyOn HCTZ 12.5mg daily Does wellGet labsShe did see Dr Jasbir CASIANO Hyperlipidemia 68650658 E78.5 On ASANot on simvastati n 40mg dailyNot on atorvastat in 40mg dailyOn pitavastat in 2mg daily Does wellGet labs Chronic ob structive pulmonary disease 00021106 J44.9 Seen Joleen Gambino NPNow to get a in lab sleep study as per her history Hyperglycemia 81255378 R 73.9 On metformin 500mg po bid Needs to diet and exerciseNe eds to do labs and see eye and foot Increased liver function 01952260 R94.5 US liver 12/27/21CT A/P 01/13/2022 CMP: LFTs WNL 04/18/2022 Should see GI hepatology , states that she did not do this the last time as she did not have the ride Hydroureter 24149856 N13 .4 S/p CT A/P 01/13/2022 Pulmonary emphysema 8743 3001 J43.9 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, 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 Aneurysm o f thoracic aorta 938824744 I71.[address] Jasbir MARTINS, as per note 04/27/2022 , TAA is 4.2cm, f/u in 6 monthsDr Jasbir CASIANO 03/21/2023 , f/u in 6 months Hypercalcemia 51978424 E 83.52 NM parathyroi d scan 12/16/2022 Dr Duran, may need to see ENT also Screening mammography 24 461817 Z12.31 Bleeding from nose [address] Bayron Morin ENT 03/16/2023 CTA neck 07/07/2023 [id number] Sanjuanita talamantes MD [facility] Internal [facility] [place] [address] [facility] [place] [address] 10/23/2023 10:26:22 10/23/2023 11:30:01 Vitamin D deficiency 81265094 E55.9 Repeat the vit d level Screening - NAD 77417987 3 Z13.9 C-scope: Dr Judith waterman 10/02/17: [...] her understand ing of the above Hypothyroidism 03308547 E03.9 On levothyrox ine 150mcgs daily, renewed 10/23/2023 with UnithroidG et US thyroidDoe s well Get labs Anemia 968524819 D64.[address] Alvarenga Essential hypertension 73976508 I10 On coreg 6.25mg dailyOn HCTZ 12.5mg daily Does wellGet labsShe did see Dr Martell [facility] Hyperlipidemia 28476401 E78.5 On ASANot on simvastati n 40mg dailyNot on atorvastat in 40mg dailyNot on pitavastat in 2mg dailyOn zetia 10mg daily Does wellGet labs Chronic ob structive pulmonary disease 97461382 J44.9 Seen Joleen Maki NPNow to get a in lab sleep study as per her history Hyperglycemia 19984236 R 73.9 On metformin 500mg po bid Needs to diet and exerciseNe eds to do labs and see eye and foot MD Increased liver function 54085120 R94.5 US liver 12/27/21CT A/P 01/13/2022 CMP: LFTs WNL 04/18/2022 Should see GI hepatology , states that she did not do this the last time as she did not have the rideReferr ed again 10/23/2023 Hydroureter 71551212 N13 .4 S/p CT A/P 01/13/2022 Pulmonary emphysema 8743 3001 J43.9 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, 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 Aneurysm o f thoracic aorta 015361700 I71.[address] Martell [facility], as per note 04/27/2022 , TAA is 4.2cm, f/u in 6 monthsDr Jasbir CASIANO 03/21/2023 , f/u in 6 months, is to get CT C/A/P on 10/30/2023 Hypercalcemia 08845876 E 83.52 NM parathyroi d scan 12/16/2022 Dr Duran, may need to see ENT also, low vit d, will need to discuss with nephrology about taking vit d, she also would like a referral to endocrine, as her nephrologi st told her she need to see an endocrine MD, referred to Dr Stark Bleeding from nose [address] Bayron Morin ENT 03/16/2023 CTA neck 07/07/2023 Pain of ri ght hip joint [id number] 29939 M25.551 States that she would like to get a referral to Dr Mehta ortho as her preferred ortho as she her lab phlebotomi st went to him Moderate r ecurrent major depression 15731455 F33.1 Feels overwhelme d with her medical issues, also has to take care of her sister who has had surgery, not suicidal or homicidalW illing to start on sertraline , all side effects explained to her [id number] Amparo Tolentino, HAND COOPER HELPER-C [facility] Primary Care [place] [address] [place] [address] 05/21/2024 08:39:53 05/21/2024 09:43:17 [id number] Sanjuanita talamantes MD [facility] Primary Care [place] [address] [place] [address] 05/29/2024 11:13:27 05/29/2024 12:32:57 Vitamin D deficiency 25656151 E55.9 Repeat the vit d level Screening - NAD 78669996 3 Z13.9 C-scope: Dr Judith waterman 10/02/17: [...] her understand ing of the above Hypothyroidism 98605745 E03.9 On levothyrox ine 150mcgs daily, renewed 10/23/2023 with UnithroidU S thyroid 05/06/2024 Does well Get labs Anemia 839197462 D64.[address] well[address] Alvarenga 05/15/2024 , next in 2 monthsIs to get an infusion this Monday05/31/2024 Essential hypertension 27820001 I10 On Coreg 6.25mg dailyOn HCTZ 12.5mg daily Does wellGet labsShe did see Dr Jasbir CASIANO Hyperlipidemia 42131351 E78.5 On ASANot on simvastati n 40mg dailyNot on atorvastat in 40mg dailyNot on pitavastat in 2mg dailyOn zetia 10mg daily Does wellGet labs Chronic ob structive pulmonary disease 99376403 J44.9 Seen Joleen Gambino NPNow to get a in lab sleep study as per her history Hyperglycemia 11590496 R 73.9 On metformin 500mg po bid Needs to diet and exerciseNe eds to do labs and see eye and foot MD Increased liver function 62807159 R94.5 US liver 12/27/21CT A/P 01/13/2022 CMP: LFTs WNL 04/18/2022 Should see GI hepatology , states that she did not do this the last time as she did not have the rideReferr ed again 10/23/2023 Hydroureter 69642623 N13 .4 S/p CT A/P 01/13/2022 Pulmonary emphysema 8743 3001 J43.9 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, 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 Aneurysm o f thoracic aorta 479158498 I71.[address] Martell [facility], as per note 04/27/2022 , TAA is 4.2cm, f/u in 6 monthsDr Jasbir CASIANO 03/21/2023 , f/u in 6 months, is to get CT C/A/P on 10/30/2023 Hypercalcemia 69784393 E 83.52 NM parathyroi d scan 12/16/2022 Dr Duran, may need to see ENT also, low vit d, will need to discuss with nephrology about taking vit d, she also would like a referral to endocrine, as her nephrologi st told her she need to see an endocrine MD, referred to Dr Stark Again referred 05/29/2024 Bleeding from nose [address] Bayron Morin ENT 03/16/2023 CTA neck 07/07/2023 Pain of ri ght hip joint 9369152351 68341 M25.551 S/p surgery Dr Garcia/u visit 04/22/2024 and next in one year Moderate r ecurrent major depression 56837811 F33.1 Feels overwhelme d with her medical issues, also has to take care of her sister who has had surgery, not suicidal or homicidalO n sertraline , all side effects explained to her Screening mammography 24 784199 Z12.31 Postmenopausal state 764 49952 Z78.0 Health Concerns Section Related Observation LastModified by Organization Detai ls LastModified Time None Recorded Concern Status LastModified by Organization Details LastModified Time None Recorded Advance Directives Directive N: Information provided Payers Encounter Date Sequence Insurance Name Policy Number Policy Alberto Covered Member ID Alberto Member ID Guarantor Name 03/22/2023 1 [place] Jory A Hessel [id number] Jory A Hessel 03/22/2023 2 [place] [place] Jory A Hessel [id number] Jory A Hess 07/19/2023 1 [place]ory A Hessel [id number] Jory A Hessel 07/19/2023 2 [place] Jory A Hessel [id number] Jory A [place] 10/23/2023 1 [place]ory A Hessel [id number] Jory A Hessel 10/23/2023 2 [place] Jory A Hessel [id number] Jory A Hess 05/29/2024 1 [place] Jory A Hessel [id number] Jory A [place] 05/29/2024 2 [place] Jory A Hessel [id number] Jory A Hessel Notes Date Note Type Note Provider Name and Address Organization Details Recorded Time 03/22/2023 text/html 02/20/17Here to establish carePMD: In [facility], last apt was a 'long ago'Past Hx:HTNHLDAnemiaSkin cancer L LEReviewed social family and surgical historyHere as she would adolph to discuss this today and perhaps get some labs 01/29/18:Here for her follow up aptShe did do the labs on 02/25/17 OV 06/05/17:Here for her routine aptShe did do the labs and is here to review thesePaula feels that she is doing well at [...] she was seen by Dr Vazquez a needle maker and was told to do a 'cath'She feels well today, no chest pain or SOB, palpitations, no N/V or diarrhea, no fevers or coughShe is also here for her MWV OV 09/16/2019:Here for her routine aptShe did do the [...] well today Sanjuanita Bach MD [address], [place], [address], [facility] [employer] 03/22/2023 17:44:27 07/19/2023 text/html 02/20/17Here to establish carePMD: In [facility], last apt was a 'long ago'Past [...] she was seen by Dr Vazquez a needle maker and was told to do a 'cath'She feels well today, no chest pain or SOB, palpitations, no N/V or diarrhea, no fevers or coughShe is also here for her MWV OV 09/16/2019:Here for her routine aptShe did do the [...] is doing well Sanjuanita Bach MD [address], [place], [address], [place] [facility] 07/24/2023 18:32:10 10/23/2023 text/html 02/20/17Here to establish carePMD: In [facility], last apt was a 'long ago'Past [...] she was seen by Dr Vazquez a needle maker and was told to do a 'cath'She feels well today, no chest pain or SOB, palpitations, no N/V or diarrhea, no fevers or coughShe is also here for her MWV OV 09/16/2019:Here for her routine aptShe did do the [...] weight gain or loss Sanjuanita Bach MD [address] [place] [address], [address], [place], [address], [place] [facility] 10/23/2023 14:46:13 05/29/2024 text/html 02/20/17Here to establish carePMD: In [facility], last apt was a 'long ago'Past [...] she was seen by Dr Vazquez a needle maker and was told to do a 'cath'She feels well today, no chest pain or SOB, palpitations, no N/V or diarrhea, no fevers or coughShe is also here for her MWV OV 09/16/2019:Here for her routine aptShe did do the [...] did do the labs Sanjuanita Bach MD [address], [place], [address], [place] [facility] [employer] [facility] 05/29/2024 15:48:59 OBGyn Episode No OBEpisode recorded.
--- OUTSIDE RECORDS SUMMARY | 2024-07-11 11:41 | XMS_ITS | CONTINUITY OF CARE DOCUMENT ---
Author Name richy lockhart Address Unknown Organization [facility] Address [address] [place] [address] Phone [phone] Care Team Providers Care Scraper Meat Name Role Phone Jasbir TORRES, Symone Unavailable SANJUANITA CAVANAUGH MD Unavailable AFSHAN TRORES, SANJUANITA Unavailable PROBLEMS Condition Status Date Provider Notes Thoracic aortic aneurysm, 3. 9 cm by echo 03/2023 active Symone Martell MD PALPITATIONS active Symone Martell MD SLEEP APNEA, on cpap active Damien Loving COPD ON CHEST CT active Symone Martell MD OBESITY active Symone Martell MD HTN SYSTOLIC active Symone Martell MD ANEMIA S/P ENDOSCOPY, COLONO SCOPY DIVERICULITIS,POLYPS active Symone Martell MD TOBACCO ABUSE QUIT active Symone Martell MD CHEST PAIN NL STRESS TEST 09/17 active ? Ra Martell MD HYPOTHYROIDISM active ? Symone Martell MD ENCOUNTERS Date Type Provider Location Encounter Diag nosis - In-person encounter Office Visit Symone Martell MD [facility] SLEEP APNEA, on cpap - In-person encounter Office Visit Symone Martell MD [facility] HTN SYSTOLICThoracic aortic aneurysm, 3.9 cm by echo 03/2023 - In-person encounter Office Visit Symone Martell MD [facility] TOBACCO ABUSE QUIT - In-person encounter Office Visit Symone Martell MD [facility] Thoracic aortic aneurysm, 3.9 cm by echo 03/2023 - In-person encounter Office Visit Symone Martell MD [facility] Office PALPITATIONS - In-person encounter Office Visit Symone Martell MD [facility] - In-person encounter Office Visit Symone Martell MD [facility] - In-person encounter Office Visit Symone Martell MD [facility] HYPOTHYROIDISMCHEST PAIN NL STRESS TEST 09/17TOBACCO [...] Meredith Nilton blood pressure, cuff size regular Ut sasha Callaway height E&M 63 [in_i] Meredith Nilton Body Mass Index (Ratio) 32.77 kg/m2 Les Martell MD pulse rate 63 /min Falguni Louis oxygen saturation, oximetry 98 % Falguni Louis respiratory rate E&M 16 /min Falguni Aurelia lyle blood pressure, cuff size regular Health system blood pressure, diastolic 77 mm[Hg] Health system blood pressure, systolic 135 mm[Hg] [facility] weight E&M 185 [lb_av] [facility] height E&M 63 [in_i] [facility] Body Mass Index (Ratio) 31.35 kg/m2 Les Martell MD blood pressure, diastolic 84 mm[Hg] Li nkLog blood pressure, systolic 145 mm[Hg] Erna kLog blood pressure, cuff size regular Ja rret blood pressure, diastolic 84 mm[Hg] Ja rret blood pressure, systolic 145 mm[Hg] Jar ret pulse rate 63 /min Uqan respiratory rate E&M 12 /min Quan oxygen [...] Mani lonnie Mckee pulse rate 70 /min [facility] oxygen saturation, oximetry 98 % Manilonnie [...] 10*3/mm3 Rick Garcia hematocrit, blood 37.1 % [facility] Garcia thyroid stimulating hormone, serum 4.440 u[IU]/mL [facility] Jose alanine aminotransferase (SGPT), serum 67 1/L [facility] aspartate aminotransferase (SGOT), serum 29 1/L [facility] Jose creatinine, serum 0.60 mg/dL [facility] Jose potassium, serum 4.4 mmol/L [facility] sodium, serum 141 mmol/L [facility] D-dimer quantitative mcg/mL 0.6 ug/mL [facility] lipoprotein, beta, serum, point, quantitative, calculated 116 mg/dL [facility] cholesterol, serum 168 mg/dL [facility] platelet count 335 10*3/mm3 [facility] hematocrit, blood 31.5 % [facility] creatinine, serum 0.82 mg/dL [facility] potassium, serum 4.0 mmol/L [facility] sodium, serum 140 mmol/L [facility] international normalized ratio (INR) 1.02 [facility] international normalized ratio (INR) 1.0 [facility] platelet count 412 10*3/mm3 [facility] hematocrit, blood 27.8 % [facility] D-dimer quantitative mcg/mL 0.6 ug/mL [facility] alanine aminotransferase (SGPT), serum 18 1/L Rick Garcia aspartate aminotransferase (SGOT), serum 15 1/L Rick Gacria creatinine, serum 0.76 mg/dL Rick Garcia potassium, [...] alcohol use, average drinks per day none [facility] 10 years or m ore [facility] smoking status Smoker [facility] MENTAL STATUS Date Observation Value Provider [...] type / Coverage type Goldy sanchez ID [facility] Medicaid 3 [id number] [place] Medicare [id number] ADVANCE DIRECTIVES Name Date DISCUSSED - NO DECISION MADE TREATMENT PLAN Date Name Performer [id number],Symone Biggs MD [id number],Symone Biggs MD [phone],Symone Gardner MD [phone],Symone Biggs MD [phone],Symone Gardner MD Cardiology:This visi t has been [...] (Hydrochlorothiazide) ..... 1 tablet once a day [facility]: H er updated medication list for this problem includes: Carvedilol 6.25 Mg Tablet (Carvedilol) ..... 1 tablet twice a day [facility]: B P today: 135/77 P rior BP: 145/84 (09/20/2022) Labs Reviewed: C reat: 0.60 (05/10/2012) C hol: 168 (12/09/2011) LDL: 116 (12/09/2011) Her updated medication list for this problem includes: Aspirin 81 Mg Oral Tablet (Aspirin) ..... One tab. daily Carvedilol 6.25 Mg Oral Tablet (Carvedilol) ..... One tab. twice daily Hydrochlorothiazide 12.5 Mg Oral Capsule (Hydrochlorothiazide) ..... One tab. daily [facility]iology [facility]: H er updated medication list for this problem includes: Levoxyl 100 Mcg Oral Tablet (Levothyroxine sodium) ..... One tab. daily [facility] Symone Martell MD Cardiology Symone Martell [...]
--- OUTSIDE RECORDS SUMMARY | 2024-07-11 11:41 | XMS_ITS | Clinical Summary ---
Author Organization [facility] Address [address] [place] [address] Care Team Providers Care Lean Process Deployment Consultant Name Role Phone David Bach MD Primary [...] tablet Take 125 mcg by mouth daily face and fill packer. Active simvastatin (ZOCOR) 40 mg tablet Take [...] Encounters Date Type Department Care Team Description 06/27/2024 External Device Data STL ABSTRACTION Provider, Abstract 06/25/2024 External Device Data STL ABSTRACTION Provider, Abstract 05/15/2024 3:30 PM CDT Office Visit [facility] Oncology and Hematology [facility] [address] [place] [address] Darian Alvarenga MD Chronic anemia (Primary Dx) 05/08/2024 Orders Only [facility] Oncology and Hematology [address] [place] [address] Darian Alvarenga MD from Last 3 Months Family History Medical [...] Smoking Tobacco: Former Cigarettes 0.5 50 1 97 - 2021 Smokeless Tobacco: Never Tobacco Cessation:Counseling Given: Not Answered Alcohol Use Standard Drinks/Week Comments No 0 (1 standard drink = 0.6 oz pur e alcohol) Comments No Sex and Gender Information Value Date Recorded Sex Assigned at Not on file Legal 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 Gender Identity Not on file Sexual [...] 3:09 PM CDT Height 157.5 cm (5' 2) 11/10/2021 1:35 PM CDT Body Mass Index 34.53 11/10/2021 1:35 PM CDT Plan of Treatment Upcoming Encounters Date Type Department Care Team (Late st Contact Info) Description 07/18/2024 11:15 AM CDT Office Visit [facility] Oncology and Hematology [facility] [address] [facility] [address] [place] [address] Darian Alvarenga MD [address] [facility] [address] [place] [address] Health Maintenance Due Date Last [...] A AND B MEDICAID [place] Care Teams Lean Process Deployment Consultant Relationship Specialty Start Date End Date Dvaid Bach MD PCP - General Internal Medicine 01/15/18
--- OUTSIDE RECORDS SUMMARY | 2024-07-11 11:41 | XMS_ITS | Referral Summary ---
Author Organization [facility] [address] Address [address] [place] [address] Care Team Providers Care Graduate Fellow Name Role Phone Tu Bach MD Primary Care Provide r Encounters Date Type Department Care Team Description 04/22/2024 11:00 AM CDT - 04/22/2024 11:59 PM CDT Hospital Encounter [facility] [address] [place] [address] [address] [place] [address] Orthopedic aftercare Discharge Disposition: Discharge to home or self care 04/22/2024 11:30 AM CDT Office Visit [facility] Orthopaedic Surgery [address] [place] [address] Medical Office [address] [place] [address] Candy Wu NP Orthopedic aftercare [...] Obesity, unspecified 01/20/2024 Moderate major depression 01/20/2024 emt intermediate (current) use of oral hypoglycemic shanti gs 01/20/2024 Hypothyroidism, unspecified 01/20/2024 Chronic kidney disease, unspecified 01/20/2024 Body mass index (BMI) 32.0-32.9, adult Aftercare following joint replacement surgery Respiratory failure, post-operative 01/18/2024 Assessment & Plan (01/19/2024 1:26 PM DIRECTOR OF INSTITUTIONAL SALES): Occurring after R ANDREW 01/16. Pt reports [...] 01/18/2024 Assessment & Plan (01/19/2024 1:22 PM DIRECTOR OF INSTITUTIONAL SALES): Pt with h/o iron deficiency, though pre-op [...] complication Assessment & Plan (01/19/2024 1:26 PM DIRECTOR OF INSTITUTIONAL SALES): -Hold home metformin, resume on discharge -Agree with SSI and BG monitoring. Skin lesion 04/27/2022 Exoed-3-bmyxqxljdtv deficiency 04/20/2022 Hypoxia 04/20/2022 Dyspnea on exertion 03/07/2022 Obstructive sleep apnea syndrome 03/07/2022 Assessment & Plan (01/18/2024 5:38 PM DIRECTOR OF INSTITUTIONAL SALES): Continue to use home CPAP at night and during naps. Aneurysm of thoracic aorta 01/19/2022 Nonalcoholic fatty liver 01/19/2022 COVID-19 01/16/2022 Hydroureter 01/09/2022 Chronic kidney disease 12/15/2021 Elevated liver enzymes 12/15/2021 Hyperglycemia 12/15/2021 Vitamin D deficiency 12/15/2021 Vertigo 09/07/2021 Chest pain, unspecified 07/15/2021 Hip pain 07/15/2021 Essential (primary) hypertension 07/15/2021 Assessment & Plan (01/18/2024 5:36 PM DIRECTOR OF INSTITUTIONAL SALES): Agree with holding home carvedilol and HCTZ in setting of borderline BP. -Monitor BP and resume home meds in stepwise fashion Tobacco dependence syndrome 07/15/2021 Trochanteric bursitis of right hip 07/15/2021 Primary osteoarthritis of right hip 07/15/2021 Assessment & Plan (01/18/2024 5:38 PM DIRECTOR OF INSTITUTIONAL SALES): S/p R ANDREW, defer management to primary ortho team Right hip pain 07/15/2021 It band syndrome, right 07/15/2021 Vitamin B12 deficiency anemia 01/29/2018 Microcytic anemia 01/22/2018 Hypertensive disorder 02/20/2017 Hyperlipidemia 02/20/2017 Hypothyroidism 02/20/2017 Assessment & Plan (01/18/2024 5:37 PM DIRECTOR OF INSTITUTIONAL SALES): Cont synthroid Iron deficiency 02/20/2017 Palpitations 01/24/2013 Chronic obstructive pulmonary disease, unspecifi ed 11/28/2011 Assessment & Plan (01/19/2024 1:22 PM DIRECTOR OF INSTITUTIONAL SALES): H/o COPD as well as chart h/o [...] Tobacco: Never Tobacco Cessation:Counseling Given: Not Answered [facility] Utilities Answer Date Recorded In the past [...] any clubs o r organizations such as denominational groups, unions, fraternal or athletic groups, or [...] time in the past 12 m [facility], were you homeless or living in a longterm (including now)? No 01/18/2024 Personal Safety Answer Date Recorded Have you ever been in or are you currently in a harmful physical or emotional relationship or is someone making you feel afraid or unsafe? Denies 01/17/2024 Comments No Sex and Gender Information Value Date Recorded Sex Assigned at Not on file Legal Sex Female 10:52 AM DIRECTOR OF INSTITUTIONAL SALES Gender Identity Not on file Sexual Orientation Not on file Last Filed Vital Signs Vital Sign Reading Time Taken Comments Blood Pressure 109/57 01/19/2024 7:11 AM DIRECTOR OF INSTITUTIONAL SALES Pulse 77 01/19/2024 7:11 AM DIRECTOR OF INSTITUTIONAL SALES Temperature 36.6 C (97.9 F) 01/19/2024 7:11 AM DIRECTOR OF INSTITUTIONAL SALES Respiratory Rate 18 01/19/2024 7:11 AM DIRECTOR OF INSTITUTIONAL SALES Oxygen Saturation 97% 01/19/2024 11:55 AM DIRECTOR OF INSTITUTIONAL SALES Inhaled Oxygen Concentration - - Weight 81.6 kg (180 lb) 01/17/2024 7:30 AM DIRECTOR OF INSTITUTIONAL SALES Height 157.5 cm (5' 2) 01/17/2024 7:30 AM DIRECTOR OF INSTITUTIONAL SALES Body Mass Index 32.92 01/17/2024 7:30 AM DIRECTOR OF INSTITUTIONAL SALES Plan of Treatment Not on file Medical Devices Implanted Type Area Die Finisher Forging Device Identifier Shelf Expiration Date Model / Serial / Lot [employer] Liner Acetabular Hip Trident X3 40mm Polyethylene 0 Degree Size E 723-00-40e - [id number] Implanted:Qty: 1 on 01/17/2024 at [facility] Right: Hip [employer] 10/18/2028 723-00-40E / / [id number] [employer] 40mm Hip Medusa Taper Head Femoral Biolox Delta 6519-1-040 - [id number] Implanted:Qty: 1 on 01/17/2024 at [facility] Right: Hip [employer] 11/11/2028 6519-1-040 / / [id number] [employer] Screw Bone Trident Ii L30mm Od6.5mm Low Profile Hexagonal Sterile 0729-7473 - [id number] Implanted:Qty: 1 on 01/17/2024 at [facility] Right: Hip [employer] 09/12/2028 [id number] / / [id number] [employer] Shell Acetabular Trident Ii Tritanium E Od52mm Hip 5 Screw Hole Cluster Sterile 702-04-52e - [id number] Implanted:Qty: 1 on 01/17/2024 at [facility] Right: Hip [employer] 11/07/2028 702-04-52E / / [id number] [employer] Stem Insignia Hip Size 6 High Offset [id number] - [id number] Implanted:Qty: 1 on 01/17/2024 at [facility] Right: Hip [employer] 11/20/2028 [id number] / / [id number] [employer] V40 Hip +0mm Offset Medusa Taper Sleeve Adapter Titanium 6519-T-100 - [id number] Implanted:Qty: 1 on 01/17/2024 at [facility] Right: Hip [employer] 12/04/2028 6519-T-100 / / [id number] Procedures Procedure Name Priority Date/Time Associated Diagnosis Comments XR HIP RIGHT W PELVIS 2 OR 3 VIEWS Schedule Routine, Read Routine (OP Routine) 04/22/2024 11:24 AM CDT Orthopedic aftercare EGFR Routine 01/18/2024 4:41 AM DIRECTOR OF INSTITUTIONAL SALES HEMOGLOBIN A1C Routine 01/01/2024 3:32 PM DIRECTOR OF INSTITUTIONAL SALES Preoperative testing Type 2 diabetes mellitus with [...] signed by: Golden Azar M.D. Candy Wu MANAGER INTERVENTIONAL IMG XR PROCEDURES Final R esult * eGFR (01/18/2024 4:41 AM DIRECTOR OF INSTITUTIONAL SALES) eGFR >90 >=60 mL/min/1. 73 m2 Comment: [...] last reviewed 2020. Blood 01/18/2024 4:41 AM DIRECTOR OF INSTITUTIONAL SALES 01/18/2024 4:52 AM DIRECTOR OF INSTITUTIONAL SALES Kira PEACE LAB BLOOD ORDERABLES Jeanna mortensen Result Performing Organization Address City/[facility]/ZIP Co de Phone Number [facility] [address] [facility] Department [place] [address] * (ABNORMAL) Hemoglobin A1c (01/01/2024 3:32 PM DIRECTOR OF INSTITUTIONAL SALES) Hgb A1C 6.4(H) 4.0 - 5.6 % Estimated Average Glucose 137 mg/dL [facility] Comment: The ADA recommends reporting an estimated Average Glucose (eAG) with all Hemoglobin A1c results using the equation derived from a study of 507 normal and diabetic adults. Minority populations were underrepresented and children were not included. (Diabetes Care 2020; 43(S1): S66-S76). The eAG is not equivalent to a fasting glucose. Blood 01/01/2024 3:32 PM DIRECTOR OF INSTITUTIONAL SALES 01/01/2024 3:58 PM DIRECTOR OF INSTITUTIONAL SALES David Mehta MD LAB BLOOD ORDERABLES Final Resul t [facility] Department [place] [address] from Last 3 Months or Most Recently Relevant to Health Maintenance Insurance MEDICARE MEDICARE [facility] MEDICARE IDPA Advance Directives For more information, please contact: [phone] * Full Code (Latest Code Status on File) Date Activated Date Inactivated Comments 01/17/2024 1:48 PM 01/19/2024 5:18 PM Care Teams Graduate Fellow Relationship Specialty Start Date End Date Tu Bach MD [address] [address] PCP - General Internal Medicine 06/08/21
[2024-07-11 16:51] LABS: Iron 73 ug/dL (37-170); Percent Iron Saturation 26 % (20-50)
[2024-07-11 16:52] LABS: Anion Gap 10 mmol/L (4-12); Blood Urea Nitrogen 15 mg/dL (7-17); Calcium 11.2 mg/dL (8.4-10.2); Carbon Dioxide 25 mmol/L (22-30); Chloride 104 mmol/L (98-107); Estimated Glomerular Filt Rate > 60; Folic Acid 12.1 ng/mL (2.76->20); Glucose 76 mg/dL (65-110); Potassium 4.4 mmol/L (3.4-5.0); Sodium 139 mmol/L (137-145)
== END 2024-07-11 10:40 | disposition home or self-care (01) ==
LOC: ANHLAB 10:41
PROVIDERS: PCP Internal Medicine; Visit Provider Internal Medicine Hematology & Oncology
DX: D64.9 Anemia, unspecified (principal)
CPT/HCPCS: 36415; 80048; 82607; 82728; 82746; 83540; 83550; 85027

== ENCOUNTER 2024-09-24 10:08 | Outpatient (CLI) | payer MEDICARE, MEDICAID, SELFPAY ==
--- OUTSIDE RECORDS SUMMARY | 2024-09-24 10:34 | XMS_ITS | Clinical Summary ---
Author Organization [facility] Address [address] [place] [address] Care Team Providers Care Marble Mechanic Helper Name Role Phone David Bach MD Primary [...] tablet Take 125 mcg by mouth daily workplace relations adviser. Active simvastatin (ZOCOR) 40 mg tablet Take [...] Encounters Date Type Department Care Team Description 09/11/2024 External Device Data [facility]CTION Provider, Abstract 08/21/2024 External Device Data [facility] Provider, Abstract 08/21/2024 External Device Data [facility] Provider, Abstract 08/21/2024 External Device Data [facility] Provider, Abstract 08/20/2024 External Device Data [facility] Provider, Abstract 07/24/2024 External Device Data [facility] Provider, Abstract 07/23/2024 External Device Data [facility] Provider, Abstract 07/18/2024 11:15 AM CDT Office Visit [facility] Oncology and Hematology - [address] [place] [id number] Darian Alvarenga MD Chronic anemia (Primary Dx) 07/12/[address] [facility] Oncology and Hematology - [address] [place] [address] Darian Alvarenga MD 06/27/2024 External Device Data [facility]STRACTION Provider, [...] on file Legal Sex Female 12:13 PM EMPLOYMENT MANAGER Gender Identity Not on file Sexual Orientation Not on file Last Filed Vital Signs Vital Sign Reading Time Taken Comments Blood Pressure 132/85 07/18/2024 10:53 AM CDT Pulse 80 07/18/2024 10:53 AM CDT Temperature 36.8 C (98.2 F) 07/18/2024 10:53 AM CDT Respiratory Rate 15 07/18/2024 10:53 AM CDT Oxygen Saturation 90% 07/18/2024 10:53 AM CDT Inhaled Oxygen Concentration - - Weight 84.8 kg (187 lb) 07/18/2024 10:53 AM CDT Height 157.5 cm (5' 2) 11/10/2021 1:35 PM CDT Body Mass Index 34.2 11/10/2021 1:35 PM CDT Plan of Treatment Upcoming Encounters Date Type Department Care Team (Late st Contact Info) Description 11/08/2024 12:15 PM CDT Office Visit [facility] Oncology and Hematology - [place] [address] [place] [address] Darian Alvarenga MD [address] [place] [address] Health Maintenance Due Date Last Done Comments DIABETES ANNUAL FOOT EXAM 1963 DIABETES ANNUAL RETINAL EXAM 1963 DIABETES MICROALBUMIN ANNUAL SCREEN 1963 LDL CHOLESTEROL ANNUAL 1963 Lung Cancer Screening 1995 ZOSTER VACCINE (1 of 2) 1995 RSV VACCINE (60+ or ) (1 - 1-dose 75+ series) 02/29/2020 DTAP/TDAP/TD VACCINES (2 - T d or Tdap) 10/15/2022 10/15/2012 COVID-19 Vaccine (6 - 2023-2 5 season) 2023 02/23/2021, 04/27/2020, 04/25/2020, Additional history exists INFLUENZA VACCINE (#1) 2024 , 01/05/2022, 01/18/2021, Additional history exists DIABETES HBA1C Q 6 MONTHS 11/20/20242024, 01/01/2024, 10/16/2023, Additional history exists OSTEOPOROSIS SCREENING 05/10/2027 , 05/09/2022, 09/18/2019, Additional history exists PNEUMOCOCCAL VACCINE 50+ YEARS Completed 0 09/21/2016, 09/23/2015, 08/31/2015 FIT/FOBT Q 1 year Discontinued 06/18/2018 COLORECTAL SCREENING Discontinued 08/19/2022, 08/19/2022, 09/10/2018, Additional history exists Colorectal Cancer Screening Discontinued FIT-DNA Q 3 years Discontinued Flex Sig/CT Colonography Q 5 years Discontinued Procedures Procedure Name Priority Date/Time Associated Diagnosis Comments BASIC METABOLIC PANEL Routine 07/11/2024 2:08 PM CDT CBC WITH DIFFERENTIAL Routine 07/11/2024 1:29 PM CDT POC OCCULT BLOOD 1 CARD Routine 06/18/2018 Anemia due to vitamin B12 deficiency, unspecified B12 deficiency type from Last 3 Months or Most Recently Relevant to Health Maintenance Results * BASIC METABOLIC PANEL (07/11/2024 2:08 PM CDT) Blood us Darian Alvarenga MD CHEMISTRY ORDERABLES Final Resu lt * CBC WITH DIFFERENTIAL (07/11/2024 1:29 PM CDT) Blood us Darian Alvarenga MD HEMATOLOGY ORDERABLES Final Res ult * (ABNORMAL) POC OCCULT BLOOD 1 CARD (06/18/2018) Stool STOOL SPECIMEN / Unknown Darian Alvarenga MD POINT OF CARE TESTING Final Res ult [facility] from Last 3 Months or Most Recently Relevant to Health Maintenance Insurance MEDICARE PART A [place] B [place] Care Teams Marble Mechanic Helper Relationship Specialty Start Date End Date David Bach MD PCP - General Internal Medicine 01/15/18
--- OUTSIDE RECORDS SUMMARY | 2024-09-24 10:34 | XMS_ITS | Clinical Summary ---
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 Pt reports [...] 01/18/2024 Assessment & Plan (01/19/2024 1:22 PM HARDNESS INSPECTOR): Pt with h/o iron deficiency, though pre-op [...] complication Assessment & Plan (01/19/2024 1:26 PM HARDNESS INSPECTOR): -Hold home metformin, resume on discharge -Agree with SSI and BG monitoring. Skin lesion 04/27/2022 Lvgij-0-yszficmuzuv deficiency 04/20/2022 Hypoxia 04/20/2022 Dyspnea on exertion 03/07/2022 Obstructive sleep apnea syndrome 03/07/2022 Assessment & Plan (01/18/2024 5:38 PM HARDNESS INSPECTOR): Continue to use home CPAP at night and during naps. Aneurysm of thoracic aorta 01/19/2022 Nonalcoholic fatty liver 01/19/2022 COVID-19 01/16/2022 Hydroureter 01/09/2022 Chronic kidney disease 12/15/2021 Elevated liver enzymes 12/15/2021 Hyperglycemia 12/15/2021 Vitamin D deficiency 12/15/2021 Vertigo 09/07/2021 Chest pain, unspecified 07/15/2021 Hip pain 07/15/2021 Essential (primary) hypertension 07/15/2021 Assessment & Plan (01/18/2024 5:36 PM HARDNESS INSPECTOR): Agree with holding home carvedilol and HCTZ in setting of borderline BP. -Monitor BP and resume home meds in stepwise fashion Tobacco dependence syndrome 07/15/2021 Trochanteric bursitis of right hip 07/15/2021 Primary osteoarthritis of right hip 07/15/2021 Assessment & Plan (01/18/2024 5:38 PM HARDNESS INSPECTOR): S/p R ANDREW, defer management to primary ortho team Right hip pain 07/15/2021 It band syndrome, right 07/15/2021 Vitamin B12 deficiency anemia 01/29/2018 Microcytic anemia 01/22/2018 Hypertensive disorder 02/20/2017 Hyperlipidemia 02/20/2017 Hypothyroidism 02/20/2017 Assessment & Plan (01/18/2024 5:37 PM HARDNESS INSPECTOR): Cont synthroid Iron deficiency 02/20/2017 Palpitations 01/24/2013 Chronic obstructive pulmonary disease, unspecifi ed 11/28/2011 Assessment & Plan (01/19/2024 1:22 PM HARDNESS INSPECTOR): H/o COPD as well as chart h/o [...] Tobacco: Never Tobacco Cessation:Counseling Given: Not Answered [facility] Utilities Answer Date Recorded In the past 12 months has th e electric, gas, oil, or water company threatened to shut off services in your home? No 01/18/2024 Social Connection and Isolation Panel Answer Date Recorded In a typical week, how many times do you talk on the phone with family, friends, or neighbors? More than three times a week 01/18/2024 How often do you get togethe r with friends or relatives? More than three times a week 01/18/2024 How often do you attend chur ch or shinto services? 1 to 4 times per year 01/18/2024 Do you belong to any clubs o r organizations such as jewish groups, unions, fraternal or athletic groups, or [...] time in the past 12 m [facility], were you homeless or living in a [place] health care facility (including now)? No 01/18/2024 Personal Safety Answer Date Recorded Have you ever been in or are you currently in a harmful physical or emotional relationship or is someone making you feel afraid or unsafe? Denies 01/17/2024 Comments No Sex and Gender Information Value Date Recorded Sex Assigned at Not on file Legal Sex Female 10:52 AM HARDNESS INSPECTOR Gender Identity Not on file Sexual Orientation Not on file Obstetrics History Last Filed Vital Signs Vital Sign Reading Time Taken Comments Blood Pressure 109/57 01/19/2024 7:11 AM HARDNESS INSPECTOR Pulse 77 01/19/2024 7:11 AM HARDNESS INSPECTOR Temperature 36.6 C (97.9 F) 01/19/2024 7:11 AM HARDNESS INSPECTOR Respiratory Rate 18 01/19/2024 7:11 AM HARDNESS INSPECTOR Oxygen Saturation 97% 01/19/2024 11:55 AM HARDNESS INSPECTOR Inhaled Oxygen Concentration - - Weight 81.6 kg (180 lb) 01/17/2024 7:30 AM HARDNESS INSPECTOR Height 157.5 cm (5' 2) 01/17/2024 7:30 AM HARDNESS INSPECTOR Body Mass Index 32.92 01/17/2024 7:30 AM HARDNESS INSPECTOR Plan of Treatment Health Maintenance Due Date Last Done Comments Albumin Creatinine Ratio, Urine 1945 Depression Screening 1945 Hepatitis C Screening 1945 Dilated Eye Exam 1945 Foot Exam 1945 Lipid Panel 1945 Hepatitis B Screening 1963 Lung Cancer Screening 1995 Zoster Vaccine (1 of 2) 1995 Well Visit 65+ 2010 DTaP/Tdap/Td Vaccine (2 - Td or Tdap) 10/15/2022 10/15/2012 Covid-19 Vaccine (2023-2 5 season) 2023 02/23/2021, 04/27/2020, 04/25/2020, Additional history exists Osteoporosis Screening-Bone Density Scan 05/09/2024 05/09/2022 Hemoglobin A1C 06/30/2024 01/01/2024 Influenza Vaccine (#1) 2024 , 12/06/2019, 12/06/2019, Additional history exists eGFR 01/17/2025 01/18/2024, 01/01/2024 Fall Risk Assessment 01/18/2025 01/19/2024 Pneumococcal vaccine 65+ Completed 017, 09/23/2015, 08/31/2015 Medical Devices Implanted Type Area Chief Nurse Anesthetist Device Identifier Shelf Expiration Date Model / Serial / Lot [employer] Liner Acetabular Hip Trident X3 40mm Polyethylene 0 Degree Size E 723-00-40e - [id number] Implanted:Qty: 1 on 01/17/2024 at [facility] Right: Hip [employer] 10/18/2028 723-00-40E / / [id number] [employer] 40mm Hip [place] Taper Head Femoral Biolox Delta 6519-1-040 - [id number] Implanted:Qty: 1 on 01/17/2024 at [facility] Right: Hip [employer] 11/11/2028 6519-1-040 / / [id number] [employer] Screw Bone Trident Ii L30mm Od6.5mm Low Profile Hexagonal Sterile 1130-4667 - [id number] Implanted:Qty: 1 on 01/17/2024 at [facility] Right: Hip [employer] 09/12/2028 [id number] / / [id number] [employer] Shell Acetabular Trident Ii Tritanium E Od52mm Hip 5 Screw Hole Cluster Sterile 702-04-52e - [id number] Implanted:Qty: 1 on 01/17/2024 at [facility] Right: Hip [employer] 11/07/2028 702-04-52E / / [id number] [employer] Stem Insignia Hip Size 6 High Offset 6152-3661 - [id number] Implanted:Qty: 1 on 01/17/2024 at [facility] Right: Hip [employer] 11/20/2028 9112-1672 / / [id number] [employer] V40 Hip +0mm Offset [place] Taper Sleeve Adapter Titanium 6519-T-100 - [id number] Implanted:Qty: 1 on 01/17/2024 at [facility] Right: Hip [employer] 12/04/2028 6519-T-100 / / [id number] Procedures Procedure Name Priority Date/Time Associated Diagnosis Comments EGFR Routine 01/18/2024 4:41 AM HARDNESS INSPECTOR HEMOGLOBIN A1C Routine 01/01/2024 3:32 PM HARDNESS INSPECTOR Preoperative testing Type 2 diabetes mellitus with chronic kidney disease, without long-term current use of insulin, unspecified CKD stage (HCC) from Last 3 Months or Most Recently Relevant to Health Maintenance Results * eGFR (01/18/2024 4:41 AM HARDNESS INSPECTOR) eGFR >90 >=60 mL/min/1. 73 m2 Comment: [...] of Race in Diagnosing Kidney Disease, JASN 2020). The CKD-EPI equation should not be used for patients with unstable renal function and has not been validated in children and those over 70. Current interpretive data was last reviewed 2020. Blood 01/18/2024 4:41 AM HARDNESS INSPECTOR 01/18/2024 4:52 AM HARDNESS INSPECTOR Kira PEACE LAB BLOOD ORDERABLES Jeanna l Result Performing Organization Address [facility]/ZIP Co de Phone Number [facility] [address] [facility] Department [place] [address] * (ABNORMAL) Hemoglobin A1c (01/01/2024 3:32 PM HARDNESS INSPECTOR) Hgb A1C 6.4(H) 4.0 - 5.6 % Estimated Average Glucose 137 mg/dL [facility] Comment: The ADA recommends reporting an estimated Average Glucose (eAG) with all Hemoglobin A1c results using the equation derived from a study of 507 normal and diabetic adults. Minority populations were underrepresented and children were not included. (Diabetes Care 2020; 43(S1): S66-S76). The eAG is not equivalent to a fasting glucose. Blood 01/01/2024 3:32 PM HARDNESS INSPECTOR 01/01/2024 3:58 PM HARDNESS INSPECTOR David Mehta MD LAB BLOOD ORDERABLES Final Resul t Performing Organization Address [facility] Co de Phone Number [facility] Department [place] [address] from Last 3 Months or Most Recently Relevant to Health Maintenance Insurance MEDICARE MEDICARE [facility] MEDICARE [place] Advance Directives For more information, please contact: [phone] * Full Code (Latest Code Status on File) Date Activated Date Inactivated Comments 01/17/2024 1:48 PM 01/19/2024 5:18 PM Care Teams Lead Data Entry Operator Relationship Specialty Start Date End Date Tu Bach MD [address] [place] [address] PCP - General Internal Medicine 06/08/21
[2024-09-25 10:09] LABS: Calcium, Urine 18.3 mg/dL (Not Estab.)
== END 2024-09-24 10:09 | disposition home or self-care (01) ==
PROVIDERS: PCP Internal Medicine; Visit Provider Internal Medicine
DX: E83.52 Hypercalcemia (principal); E03.9 Hypothyroidism, unspecified; I10 Essential (primary) hypertension
CPT/HCPCS: 82340

== ENCOUNTER 2024-10-10 12:49 | Outpatient (CLI) | payer MEDICARE, MEDICAID, SELFPAY ==
--- OUTSIDE RECORDS SUMMARY | 2024-10-10 13:02 | XMS_ITS | Clinical Summary ---
Author Organization [facility] Address [address] [place] [address] Care Team Providers Care Traffic Division Commanding Officer Name Role Phone David Bach MD Primary [...] Take 125 mcg by mouth daily early breastfeeding care specialist. Active simvastatin (ZOCOR) 40 mg tablet Take [...] Encounters Date Type Department Care Team Description 10/08/2024 External Device Data [facility]STRA[facility] Provider, Abstract 09/24/2024 External Device Data [facility] Provider, Abstract 09/11/2024 External Device Data [facility] Provider, Abstract 08/21/2024 External Device Data [facility] Provider, Abstract 08/21/2024 External Device Data [facility] Provider, Abstract 08/21/2024 External Device Data [facility] Provider, Abstract 08/20/2024 External Device Data [facility] Provider, Abstract 07/24/2024 External Device Data [facility] Provider, Abstract 07/23/2024 External Device Data [facility]STRA[facility] Provider, Abstract 07/18/2024 11:15 AM CDT Office Visit [facility] Oncology and Hematology [facility] [address] [place] [address] Darian Alvarenga MD Chronic anemia (Primary Dx) 07/12/2024 Orders Only [facility] On[facility] [address] [place] [address] Darian Alvarenga MD from Last 3 Months [...] on file Legal Sex Female 12:13 PM PRODUCTION PACKAGER Gender Identity Not on file Sexual Orientation [...] Description 11/08/2024 12:15 PM CDT Office Visit [facility] Oncology and Hematology - [place] [address] [place] [address] Darian Alvarenga MD [address] [facility] [address] [place] [address] Health Maintenance Due Date Last [...] A AND B MEDICAID [place] Care Teams Traffic Division Commanding Officer Relationship Specialty Start Date End Date David Bach MD PCP - General Internal Medicine 01/15/18
--- OUTSIDE RECORDS SUMMARY | 2024-10-10 13:02 | XMS_ITS | Clinical Summary ---
Author Organization [facility] [address] Address [address] [place] [address] Care Team Providers Care Storeperson Name Role Phone Tu Bach MD Primary [...] Obesity, unspecified 01/20/2024 Moderate major depression 01/20/2024 assisted (current) use of oral hypoglycemic shanti gs 01/20/2024 Hypothyroidism, unspecified 01/20/2024 Chronic kidney disease, unspecified 01/20/2024 Body mass index (BMI) 32.0-32.9, adult Aftercare following joint replacement surgery Respiratory failure, post-operative 01/18/2024 Assessment & Plan (01/19/2024 1:26 PM CATERING DIRECTOR): Occurring after R ANDREW 01/16. Pt reports [...] 01/18/2024 Assessment & Plan (01/19/2024 1:22 PM CATERING DIRECTOR): Pt with h/o iron deficiency, though pre-op [...] complication Assessment & Plan (01/19/2024 1:26 PM CATERING DIRECTOR): -Hold home metformin, resume on discharge -Agree with SSI and BG monitoring. Skin lesion 04/27/2022 Yhvak-6-ekhukvytadh deficiency 04/20/2022 Hypoxia 04/20/2022 Dyspnea on exertion 03/07/2022 Obstructive sleep apnea syndrome 03/07/2022 Assessment & Plan (01/18/2024 5:38 PM CATERING DIRECTOR): Continue to use home CPAP at night and during naps. Aneurysm of thoracic aorta 01/19/2022 Nonalcoholic fatty liver 01/19/2022 COVID-19 01/16/2022 Hydroureter 01/09/2022 Chronic kidney disease 12/15/2021 Elevated liver enzymes 12/15/2021 Hyperglycemia 12/15/2021 Vitamin D deficiency 12/15/2021 Vertigo 09/07/2021 Chest pain, unspecified 07/15/2021 Hip pain 07/15/2021 Essential (primary) hypertension 07/15/2021 Assessment & Plan (01/18/2024 5:36 PM CATERING DIRECTOR): Agree with holding home carvedilol and HCTZ in setting of borderline BP. -Monitor BP and resume home meds in stepwise fashion Tobacco dependence syndrome 07/15/2021 Trochanteric bursitis of right hip 07/15/2021 Primary osteoarthritis of right hip 07/15/2021 Assessment & Plan (01/18/2024 5:38 PM CATERING DIRECTOR): S/p R ANDREW, defer management to primary ortho team Right hip pain 07/15/2021 It band syndrome, right 07/15/2021 Vitamin B12 deficiency anemia 01/29/2018 Microcytic anemia 01/22/2018 Hypertensive disorder 02/20/2017 Hyperlipidemia 02/20/2017 Hypothyroidism 02/20/2017 Assessment & Plan (01/18/2024 5:37 PM CATERING DIRECTOR): Cont synthroid Iron deficiency 02/20/2017 Palpitations 01/24/2013 Chronic obstructive pulmonary disease, unspecifi ed 11/28/2011 Assessment & Plan (01/19/2024 1:22 PM CATERING DIRECTOR): H/o COPD as well as chart h/o [...] often do you attend chur ch or buddhism services? 1 to 4 times per year 01/18/2024 Do you belong to any clubs o r organizations such as sikhism groups, unions, fraternal or athletic groups, or [...] were you homeless or living in a long term (including now)? No 01/18/2024 Personal Safety Answer Date Recorded Have you ever been in or are you currently in a harmful physical or emotional relationship or is someone making you feel afraid or unsafe? Denies 01/17/2024 Comments No Sex and Gender Information Value Date Recorded Sex Assigned at Not on file Legal Sex Female 10:52 AM CATERING DIRECTOR Gender Identity Not on file Sexual Orientation Not on file Obstetrics History Last Filed Vital Signs Vital Sign Reading Time Taken Comments Blood Pressure 109/57 01/19/2024 7:11 AM CATERING DIRECTOR Pulse 77 01/19/2024 7:11 AM CATERING DIRECTOR Temperature 36.6 C (97.9 F) 01/19/2024 7:11 AM CATERING DIRECTOR Respiratory Rate 18 01/19/2024 7:11 AM CATERING DIRECTOR Oxygen Saturation 97% 01/19/2024 11:55 AM CATERING DIRECTOR Inhaled Oxygen Concentration - - Weight 81.6 kg (180 lb) 01/17/2024 7:30 AM CATERING DIRECTOR Height 157.5 cm (5' 2) 01/17/2024 7:30 AM CATERING DIRECTOR Body Mass Index 32.92 01/17/2024 7:30 AM CATERING DIRECTOR Plan of Treatment Health Maintenance Due Date Last Done Comments Albumin Creatinine Ratio, Urine 1945 Depression Screening 1945 Hepatitis C Screening 1945 Dilated Eye Exam 1945 Foot Exam 1945 Lipid Panel 1945 Hepatitis B Screening 1963 Lung Cancer Screening 1995 Zoster Vaccine (1 of 2) 1995 Well Visit 65+ 2010 DTaP/Tdap/Td Vaccine (2 - Td or Tdap) 10/15/2022 10/15/2012 Osteoporosis Screening-Bone Density Scan 05/09/2024 05/09/2022 Hemoglobin A1C 06/30/2024 01/01/2024 Covid-19 Vaccine (2024-2 6 season) 2024 02/23/2021, 04/27/2020, 04/25/2020, Additional history exists Influenza Vaccine (#1) 2024 , 12/06/2019, 12/06/2019, Additional history exists eGFR 01/17/2025 01/18/2024, 01/01/2024 Fall Risk Assessment 01/18/2025 01/19/2024 Pneumococcal vaccine 65+ Completed 017, 09/23/2015, 08/31/2015 Medical Devices Implanted Type Area Therapeutic Radiologist Device Identifier Shelf Expiration Date Model / Serial / Lot [employer] Liner Acetabular Hip Trident X3 40mm Polyethylene 0 Degree Size E 723-00-40e - [id number] Implanted:Qty: 1 on 01/17/2024 at [facility] Right: Hip [employer] 10/18/2028 723-00-40E / / [id number] [employer] 40mm Hip [place] Taper Head Femoral Biolox Delta 6519-1-040 - [id number] Implanted:Qty: 1 on 01/17/2024 at [facility] Right: Hip [employer] 11/11/2028 6519-1-040 / / [id number] [employer] Screw Bone Trident Ii L30mm Od6.5mm Low Profile Hexagonal Sterile [id number] - [id number] Implanted:Qty: 1 on 01/17/2024 at [facility] Right: Hip [employer] 09/12/2028 [id number] / / [id number] [employer] Shell Acetabular Trident Ii Tritanium E Od52mm Hip 5 Screw Hole Cluster Sterile 702-04-52e - [id number] Implanted:Qty: 1 on 01/17/2024 at [facility] Right: Hip [employer] 11/07/2028 702-04-52E / / [id number] [employer] Stem Insignia Hip Size 6 High Offset [id number] - [id number] Implanted:Qty: 1 on 01/17/2024 at [facility] Right: Hip [employer] 11/20/2028 [id number] / / [id number] [employer] V40 Hip +0mm Offset [place] Taper Sleeve Adapter Titanium 6519-T-100 - [id number] Implanted:Qty: 1 on 01/17/2024 at [facility] Right: Hip [employer] 12/04/2028 6519-T-100 / / [id number] Procedures Procedure Name Priority Date/Time Associated Diagnosis Comments EGFR Routine 01/18/2024 4:41 AM CATERING DIRECTOR HEMOGLOBIN A1C Routine 01/01/2024 3:32 PM CATERING DIRECTOR Preoperative testing Type 2 diabetes mellitus with chronic kidney disease, without long-term current use of insulin, unspecified CKD stage (HCC) from Last 3 Months or Most Recently Relevant to Health Maintenance Results * eGFR (01/18/2024 4:41 AM CATERING DIRECTOR) eGFR >90 >=60 mL/min/1. 73 m2 Comment: [...] last reviewed 2020. Blood 01/18/2024 4:41 AM CATERING DIRECTOR 01/18/2024 4:52 AM CATERING DIRECTOR Kira PEACE LAB BLOOD ORDERABLES Jeanna l Result Performing Organization Address [facility]/ZIP Co de Phone Number [facility] [address] [facility] Department [place] [address] * (ABNORMAL) Hemoglobin A1c (01/01/2024 3:32 PM CATERING DIRECTOR) Hgb A1C 6.4(H) 4.0 - 5.6 % Estimated Average Glucose 137 mg/dL [facility] Comment: The ADA recommends reporting an estimated Average Glucose (eAG) with all Hemoglobin A1c results using the equation derived from a study of 507 normal and diabetic adults. Minority populations were underrepresented and children were not included. (Diabetes Care 2020; 43(S1): S66-S76). The eAG is not equivalent to a fasting glucose. Blood 01/01/2024 3:32 PM CATERING DIRECTOR 01/01/2024 3:58 PM CATERING DIRECTOR David Mehta MD LAB BLOOD ORDERABLES Final Resul t Performing Organization Address [facility] Co de Phone Number [facility] [place] [address] from Last 3 Months or Most Recently Relevant to Health Maintenance Insurance MEDICARE MEDICARE [facility] MEDICARE [place] Advance Directives For more information, please contact: [phone] * Full Code (Latest Code Status on File) Date Activated Date Inactivated Comments 01/17/2024 1:48 PM 01/19/2024 5:18 PM Care Teams Storeperson Relationship Specialty Start Date End Date Tu Bach MD [address] [place] [address] PCP - General Internal Medicine 06/08/21
[2024-10-10 13:58] LABS: Alanine Aminotransferase 26 U/L (6-35); Albumin Level 4.5 g/dL (3.5-5.1); Alkaline Phosphatase 99 U/L (38-126); Anion Gap 7 mmol/L (4-12); Aspartate Amino Transferase 24 U/L (14-36); Bilirubin,Total 0.7 mg/dL (0.2-1.3); Blood Urea Nitrogen 13 mg/dL (7-17); Calcium 11.0 mg/dL (8.4-10.2); Carbon Dioxide 26 mmol/L (22-30); Chloride 103 mmol/L (98-107); Estimated Glomerular Filt Rate > 60; Glucose 88 mg/dL (65-110); Potassium 4.4 mmol/L (3.4-5.0); Sodium 136 mmol/L (137-145); Total Protein 8.0 g/dL (6.3-8.2)
[2024-10-10 14:16] LABS: Free T4 Free Thyroxine 1.23 ng/dL (0.78-2.19)
[2024-10-10 14:29] LABS: Thyroid Stimulating Hormone 5.410 uIU/mL (0.465-4.680)
[2024-10-10 14:30] LABS: Parathyroid Intact 90.6 pg/mL (14.5-75.2)
[2024-10-11 15:09] LABS: Albumin 4.3 g/dL (2.9-4.4); Alpha-1-Globulin 0.1 g/dL (0.0-0.4); Alpha-2-Globulin 0.7 g/dL (0.4-1.0); Gamma Globulin 1.2 g/dL (0.4-1.8)
[2024-10-11 16:08] LABS: Calcium, Ionized 5.8 mg/dL (4.5-5.6)
[2024-10-18 15:09] LABS: 1,25-Dihydroxy, Vitamin D-2 <10 pg/mL (.); 1,25-Dihydroxy, Vitamin D-3 80 pg/mL (.); Total 1,25-Dihydroxy,Vitamin D 81 pg/mL (.)
== END 2024-10-10 12:50 | disposition home or self-care (01) ==
PROVIDERS: PCP Internal Medicine; Visit Provider Internal Medicine
DX: E83.52 Hypercalcemia (principal); E03.9 Hypothyroidism, unspecified; I10 Essential (primary) hypertension; E78.5 Hyperlipidemia, unspecified; E11.9 Type 2 diabetes mellitus without complications; M81.0 Age-related osteoporosis without current pathological fracture
CPT/HCPCS: 80053; 82330; 82397; 82652; 83970; 84155; 84165; 84439; 84443

== ENCOUNTER 2024-12-27 09:24 | Outpatient (CLI) | payer MEDICARE, MEDICAID, SELFPAY ==
--- NOTE | ~2024-12-27 | CT_ITS ---
EXAMINATION:CT diagnostic chest w con DATE: 12/27/2024 09:55 INDICATION: AAA, pain and palpitations TECHNIQUE: Computed tomography (CT) of the chest was performed with intravenous contrast. The dose-length product (DLP) was 221.60 mGy-cm. COMPARISON: April 09, 2019 FINDINGS: 4.1 cm ascending aortic aneurysm as measured at the level of the right pulmonary artery stable to slightly increased compared to the 2020 exam. No acute convocation dissection or ulceration seen. Mild to moderate scattered plaque disease present. The aorta tapers to normal size in the distal arch. Heart size normal with no significant pericardial effusion. No large pulmonary emboli. Coronary calcifications noted. In the lung o[place], scattered fibrotic changes as well as moderately severe emphysematous changes especially in the upper lobes stable slightly worse compared to the previous study. 1.9 cm air cyst anteriorly on the right side image 63 series 4 mildly larger. No acute process seen. Central and large airways are patent. Bony thorax intact. No acute process seen in the visualized portions of the upper abdomen or extrathoracic soft tissues. 1.5 cm low-density lesion posterior dome of the liver image 93 series 3 not significant changed. IMPRESSION: 1. Stable exam with ectatic, borderline aneurysmal change of the ascending thoracic aorta. 2. Other chronic findings as above. Reviewed, dictated and finalized at location A. S EXAMINER IMPRESSION: 1. Stable exam with ectatic, borderline aneurysmal change of the ascending thor acic aorta. 2. Other chronic findings as above.
--- OUTSIDE RECORDS SUMMARY | 2024-12-27 09:30 | XMS_ITS | Continuity of Care Document ---
Author Organization [place] - [facility], [facility] [place] Address [address] [place] [address] Care Team Providers Care Welding Equipment Repairer Name Role Phone DAVID CAVANAUGH Primary Care Provider DANA FERREIRA Product Craftsman [facility] Plan Administrator [phone] Assessment Encounter Date Assessment Date Assessment LastModified by Organization Details LastModified Time 10/01/2024 10/01/2024 Time spent with patient included: preparing to see patient by reviewing tests, obtaining and reviewing history, medical examination and evaluation, counseling and educating the patient, ordering medications and tests, documenting clinical information in EHR, independently interpreting results and communicating results to the patient for a total of 50 minutes. [email or web address] Not available 10/02/2024 09:22:44 Plan of Treatment Reminders Order Date Submit Date Provider Last Modified By Organization Details Last Modified Time Details Appointments Any 15 2025 11:00A M Vonda Carolina NP Not available Not available Not available Any 15 2025 02:00P Aurelia freitas MD Not available Not available Not available Lab None recorded. Referral None recorded. Procedures None recorded. Surgeries None recorded. Imaging None recorded. Medication Orders Airsupra 90 mcg-80 mcg/actua tion HFA aerosol inhaler 2024 025 [facility] [address] [facility], [place], [address], 10/01/2024 12:01:33 Patient TargetsNo targets recorded. Patient Instructions Encounter Date Encounter Id Patient Instructions Last Modified By Organization Details Last Modified Time 10/01/2024 [id number] complete PFT w/ post bronchodilator spirometry* - Please call patient to schedule. [email or web address] Not available 11/13/2024 10:34:13 Reason for Referral None Reported. Results Created Date Observation Date Name Description Value Unit Range Abnormal Flag Note LastModifiedBy Organization Detail LastModifiedTime 09/03/1909/02/2024 DEXA, axial skele ton Examin ation: XR DEXA-H IPS PELVIS SPINE Clinic al Indica tion: Post menopa usal. Compar abraham: 2022. Techni que: Dual-e nergy X-ray absorp tiomet ry (DEXA) was perfor med to assess bone minera l densit y of the lumbar spine and left femur. Findin gs: Lumbar Spine (L1 Verteb ra): The T score of the L1 verteb ra is -2.7, indica ting bone minera l densit y below the normal refere nce range consis tent with osteop orosis . Left Femur: The T score of the left femur is -2.5, indica ting bone minera l densit y at the thresh old for osteop orosis . Impres juliane: 1. Osteop orosis is diagno sed based on a T score of -2.7 at the L1 verteb ra. 2. Osteop orosis is also presen t at the left femur with a T score of -2.5. Electr onical ly Signed 025 16:25 Piampi bryce Roberts [facility] (Imaging) [address] [place], [address], 09/02/2024 17:26:06 09/03/1909/02/2024 bone densi ty No observ ation record ed. [facility] [address] [place], [address], 09/02/2024 18:21:26 09/15/19 25 09/02/2024 seth landaverde kerline, bilat [facility] [address] [place] [address] [phone] Patien t Name: HOA MART Access ion #: [id number] Sex: F : 1945 2 Dictat ed By: Trixie Hernandez Attend ing Physic tamiko: MORENA ABDUL Orderi ng Physic tamiko: VINICIUSMORENA GALVEZ Exam Date: 2024 14:31 PM Exam Name: MG SCRN BREAST KERLINE BILAT Admitt ing Diagno sis(es ): PROCED URE: SCREEN ING MAMMOG BECK WITH TOMOSY NTHESI S REASON FOR EXAM: screen ing mammog beck COMPAR ABRAHAM: MG DIGITA L JOSE BILAT SCREEN 2D on DOS: 4, MG DIGITA L JOSE BILAT SCREEN 2D on DOS: 05/09/22 , MG DIGITA L JOSE BILAT SCREEN 2D on DOS: 2, DIGITA L MAMM, BILAT SCREEN ING 2D on DOS: 0, DIGITA L MAMM, BILAT SCREEN ING 2D on DOS: 8 TECHNI QUE: Bilate ral CC and MLO views obtain ed. Images were obtain ed using a Digita l Tomosy nthesi s Unit. Standa rd 2D and 3D Tomosy nthesi s images were review ed. This examin ation was analyz ed using Lunit Insigh t DBT/MM G in additi on to a radiol ogist review , an AI softwa re develo ped to enhanc e the effect ivenes s of breast cancer screen ing with mammog aguilar. FINDIN GS: BREAST COMPOS ITION: C - The breast s are hetero geneou sly dense, which may obscur e small masses . In the right breast , no asymme trical parenc hymal patter n, evert ectura l distor tion, pleomo rphic microc alcifi cation s or masses . In the left breast , no asymme trical parenc hymal patter n, evert ectura l distor tion, pleomo rphic microc alcifi cation s or masses . IMPRES JULIANE: No findin gs of malign hugo. Page 1 [facility] [address], [place] [address] Patien t Name: HOA MART Access ion #: [id number] Sex: F : 1945 2 Dictat ed By: Trixie Hernandez Attend ing Physic tamiko: TRUADELE Talamantes, [place] HENDRICKS Orderi ng Physic tamiko: [place] TRU HENDRICKSADELE Talamantes Exam Date: 2024 14:31 PM Exam Name: MG SCRN BREAST KERLINE BILAT Admitt ing Diagno sis(es ): RECOMM ENDATI ON: Recomm end annual mammog beck. ASSESS MENT: BIRADS : 1 - Negati ve Electr onical ly Signed by: Trixie Hernandez at 2024 18:00: 22 PM Page 2 [facility] (Imaging) [address] [place], [address], 09/14/2024 19:02:36 09/15/19 25 09/02/2024 MAMMO , scree efren, digit al, bilat eral No observ ation record ed. [facility] [address] [place], [address], 09/14/2024 19:05:21 Result Notes None recorded. Problems Name Problem SNOMED Code Status Onset Date Resolution Date Notes Provider Name and Address Organization Details Recorded Time Pain of hip region 18313738 Active Not Available [facility] 3 08:15:39 Hypolipid emia 518917705 Completed 201702/20/2017 Not Available [facility] 3 06:02:36 Iron deficienc y 45497440 Active 2017 Not Available [facility] 3 08:15:39 Hypertens pedro disorder 44622486 Active 2017 Not Available [facility] 3 08:15:39 Hypothyro idism 78875770 Active 2017 Not Available [facility] 3 08:15:39 Hyperlipi demia 49549318 Active 2017 Not Available [facility] 3 08:15:39 Vertigo 522117053 Active 2021 Not Available [facility] 3 08:15:39 Vitamin D deficienc y 69215077 Active 2021 Not Available [facility] 3 08:15:39 Liver enzymes level above reference range 696451840 Active 2021 Not Available [facility] 3 08:15:39 Chronic kidney disease 660086387 Active 2021 Not Available [facility] 3 08:15:39 Hyperglyc emia 60265836 Active 2021 Not Available [facility] 3 08:15:39 Hydrouret er 66596578 Active 2021 Not Available [facility] 3 08:15:39 COVID-19 350541222 Active 2021 Not Available [facility] 3 08:15:39 Non-alcoh olic fatty liver 686119863 Active 2021 Not Available [facility] 3 08:15:39 Aneurysm of thoracic aorta 008952317 Active 2021 Not Available [facility] 3 08:15:39 Pulmonary emphysema 31050561 Active 2021 Not Available [facility] 3 08:15:39 Dyspnea on exertion 32278410 Active 2022 Not Available [facility] 3 08:15:39 Sleep apnea 74663801 Active 2022 Not Available [facility] 3 08:15:39 Obstructi ve sleep apnea syndrome 03665867 Active 2022 Not Available [facility] 3 08:15:39 Secondary pulmonary hypertens ion 51859697 Active 2022 Not Available [facility] 3 08:15:39 Hypoxia 326170774 Active 2022 Not Available [facility] 3 08:15:39 Alpha-1-a ntitrypsi n deficienc y 12445004 Active 2022 Not Available [facility] 3 08:15:39 Anemia 193860514 Active 2022 Not Available [facility] 3 08:15:39 Essential hypertens ion 78620225 Active 2022 Not Available [facility] 3 08:15:39 Chronic obstructi ve pulmonary disease 63777175 Active 2022 Not Available [facility] 3 08:15:39 Skin lesion 29108764 Active 2022 Not Available [facility] 3 08:15:39 Increased liver function 54277409 Active 2022 Not Available [facility] 3 08:15:39 Type 2 diabetes mellitus without complicat ion 844667416 Active 2022 Not Available [facility] 3 08:15:39 Asthma 619900046 Active 2022 Not Available [facility] 3 08:15:39 Hypercalc emia 03530484 Active 2022 Not Available [facility] 3 08:15:39 Cobalamin deficienc y 699634262 Active 2022 Lashon Jacobson [facility], [place] [facility] 3 15:52:24 Bleeding from nose 204293165 Active 2023 David talamantes MD [address], [place], [address] , [place] [facility] [employer] [facility] 4 10:53:56 Pain of right hip joint 28053950814 9102 Active 2023 David talamantes MD [address], [place], [address] , [place] [facility] [employer] [facility] 4 11:25:29 Moderate recurrent major depressio n 42498366 Active 2023 David talamantes MD [address], [place], [address] , [place] [facility] [employer] [facility] 4 11:26:04 Diabetes mellitus 31496987 Active 2024 Wilma Benites MA null, [employer] 13:27:40 Notes:[facility] home sleep study 03/15/22 AHI = 4 [facility] diagnostic sleep study 06/29/22 AHI = [...] replacement of hip completed Brandi Gifford MA [employer] 05/29/2024 11:36:27 07/19/19 24 Medicare Wellness CPT Code, subsequent completed Deven Stacy LPN [employer] 07/17/2023 18:32:38 07/19/19 24 Advanced Care Planning completed Deven Stacy LPN [employer] 07/19/2023 11:12:06 04/28/19 23 Medicare Wellness CPT Code, subsequent completed Adele Valencia RN [facility] [employer] [facility] 04/27/2022 11:20:50 04/28/19 23 Advanced Care Planning completed Adele Valencia RN [facility] [employer] [facility] 04/27/2022 11:23:21 01/01/20 20 excision of skin carcinoma completed Not Available [facility] 04/06/2022 05:56:38 10/22/19 17 Ther radiology tx plng smpl completed Not Available [facility] 04/06/2022 05:56:38 09/18/19 13 Stent placemt retro carotid completed Not Available [facility] 04/06/2022 05:56:38 02/17/19 11 Cholecystectomy completed Not Available [facility] 04/06/2022 05:56:38 Nipple/areola reconstruction completed Not Available [facility] 04/06/2022 05:56:38 excision of skin carcinoma completed Not Available [facility] 04/06/2022 05:56:38 Skin Graft completed Not Available [facility] 04/06/2022 05:56:38 Colonoscopy completed Not Available [facility] 04/06/2022 05:56:38 Hysterectomy completed Not Available [facility] 04/06/2022 05:56:38 Appendectomy completed Not Available [facility] 04/06/2022 05:56:38 EGD completed Not Available [facility] 04/06/2022 05:56:38 Imaging Results None recorded. Procedure Notes None recorded. Medical Equipment None Reported. Allergies Allergen ID Allergen Name Allergen Category Reaction Reaction Severity Criticality Documentation Date Start Date Code Code System Note Provider Name and Address Organization Details Recorded Time 44150 Non-stero idal anti-infl ammatory agent (substanc e) medicatio n nausea severe Not available 04/06/2022 37450 5008 SNOMED Not Available [facility] 3 06:09:23 34341 Demerol medicatio n hallucina tions Not available Not available 04/06/2022 52563 1 RxNorm Not Available [facility] 3 06:09:23 53101 codeine medicatio n itching Not available Not available 04/06/2022 2670 RxNorm Not Available [facility] 3 06:09:23 05860 ibuprofen medicatio n Not available Not available high 12/20/20242021 5640 RxNorm Not Available counts include [facility] [employer] - prod 5 08:39:28 66038 meperidin e medicatio n hallucina tions Not available low 12/20/20242017 6754 RxNorm Not Available counts include 234 [facility] at [facility] [employer] - prod 5 08:39:28 72135 morphine medicatio n itching Not available low 12/20/20242019 7052 RxNorm Not Available counts include 234 beds at [facility] External [employer] - prod 5 08:39:28 34556 Pethidine analog (substanc e) medicatio n Not available Not available Not available 12/20/20242023 90164 0004 SNOMED unrec ogniz ed react ion (text : Unkno wn, code: [id number]) (from [facility]) Not Available [employer] [place] - External Data Service - prod 08:39:42 Medications Name Sig Start Date Stop Date [...] TAKE 1 TABLET BY MOUTH ONCE DAILY AND 2 TABLETS ON MONDAY FOR A TOTAL OF 8 TABS PER WEEK active Not Available Not Available No t Available carvedilo l 6.25 mg tablet TAKE [...] MOUTH EVERY 12 HOURS FOR 7 DAYS 09/18 completed Not Available Not Available Not Available [...] Available hydrochlo rothiazid e 12.5 mg capsule Take 1 capsule by mouth once daily 2024 active Not Available Not Available Not Avai lable sertralin e 25 mg tablet TAKE 1 TABLET BY MOUTH ONCE DAILY 12/25 completed Not Available Not Available Not Available mupirocin 2 % topical ointment APPLY [...] Available Not Available Not Available sertralin e 50 mg tablet TAKE 1 TABLET BY MOUTH ONCE DAILY active Not Available Not Available No t Available loratadin e 10 mg tablet TAKE 1 TABLET BY MOUTH ONCE DAILY NEEDED FOR 30 DAYS 10/21 completed Not Available Not Available Not Available amoxicill in 875 mg-potass ium clavulana te 125 mg tablet TAKE 1 TABLET BY MOUTH TWICE DAILY 09/18 completed Not Available Not Available Not Available [...] ONCE A WEEK. TAKE WITH OTC CALCIUM 09/18 completed Not Available Not Available Not Available [...] pitavast atin. Valid: 05/02/23 until futher notice. KOBI# [id number] 335. Not Available Not Available Not Available Contour Next Test Strips USE 1 STRIP TO CHECK GLUCOSE ONCE DAILY active Not Available Not Available No t Available cyanocoba samara (vit B-12) 1,000 mcg/mL injection kit Inject 1 mL every month by intramus cular route. 10/21 completed Not Available Not Available Not Available [employer] SureClick 140 mg/mL subcutane ous pen injector Inject 1 mL every 2 weeks by subcutan eous route for 90 days. 2024 active Not Available Not Available Not Avai lable Fluzone High-Dose 2018- (PF) 180 mcg/0.5 mL [...] completed Not Available Not Available Not Available Airsupra 90 mcg-80 mcg/actua tion HFA aerosol inhaler Inhale 2 inhalati ons every 4-6 hours by inhalati on route as needed. 2024 active Not Available Not Available Not Avai lable Vitals Date Recorded Body height Body mass index (BMI) Body weight Body temperature Heart rate Oxygen saturation Systolic And Diastolic Provider Name and Address Organization Details Last Updated DateTime 5 157.48 cm 35.7 kg/m2 52034.5 1 g 97.6 [degF] 75 /min 95 % 118/80 mm[Hg] Celina Jhaveri RN [place] [facility] [employer] 5 11:26:35 Social History Question Answer Notes LastModified by Organization Details LastModified Time Tobacco Smoking Status Former Smoker Not Available [facility] 04/06/2022 05:54:10 Do You Have An Advance Directive? No Information Provided Information not available 04/27/2022 Are You Blind Or Do You Have Difficulty Seeing? No MIGRATION.125 [id number] Information not available 04/06/2022 Is Blood Transfusion Acceptable In An Emergency? Yes [email or web address] Information not available 07/19/2023 What Is Your Level Of Caffeine Consumption? Moderate MIGRATION.965 [id number] Information not available 04/06/2022 In The 14 Days Before Symptom Onset, Have You Had Close Contact With A Laboratory-conf irmed COVID-19 While That Case Was Ill? No MIGRATION.049 [id number] Information not available 04/06/2022 In The 14 Days Before Symptom Onset, Have You Had Close Contact With A Person Who Is Under Investigation For COVID-19 While That Person Was Ill? No MIGRATION.388 [id number] Information not available 04/06/2022 Are You Deaf Or Do You Have Serious Difficulty Hearing? No MIGRATION.205 6310775 Information not available 04/06/2022 What Type Of Diet Are You Following? DIABETIC Information not available 04/27/2022 What Is The Highest Grade Or Level Of School You Have Completed Or The Highest Degree You Have Received? FD91327-4 MIGRATION.257 5775778 Information not available 04/06/2022 Have There Been Any Changes To Your Family Or Social Situation? No MIGRATION.158 5312815 Information not available 04/06/2022 What Is The Fluoride Status Of Your Home? Fluoridated MIGRATION.794 8230611 Information not available 04/06/2022 When Did You Quit Smoking? 1-5yearssincelastc igarette 03/09/21 MIGRATION.344 1120415 Information not available 04/06/2022 Are There Any Guns Present In Your Home? No MIGRATION.622 7583105 Information not available 04/06/2022 Do You Use Insect Repellent Routinely? No MIGRATION.340 5168980 Information not available 04/06/2022 [facility] MIGRATION.580 7806032 Information not available 04/06/2022 Presence Of Domestic [...] Do You Have A Medical Power Of Broadcast Systems Engineer? No MIGRATION.317 3341285 Information not available 04/06/2022 What Was The Date Of Your Most Recent Tobacco Screening? 12/25/2024 [email or web address] Information not available 12/25/2024 Do You Have Any Pets? No MIGRATION.049 8311289 Information not available 04/06/2022 What Is Your Relationship Status? MIGRATION.447 6062607 Information not available 04/06/2022 Do You Use Your Seat Belt Or Car Seat Routinely? Yes MIGRATION.496 5421645 Information not available 04/06/2022 Do You Have Smoke And Carbon Monoxide Detectors In Your Home? Yes MIGRATION.359 8159290 Information not available 04/06/2022 At What Age Did You Start Smoking Tobacco? 26 MIGRATION.583 1000244 Information not available 04/06/2022 Are You Passively Exposed To Smoke? No MIGRATION.479 2242682 Information not available 04/06/2022 Are There Any Smokers In Your House? No MIGRATION.143 1436380 Information not available 04/06/2022 Do You Use Sunscreen Routinely? No MIGRATION.412 4592695 Information not available 04/06/2022 Has Tobacco Cessation Counseling Been Provided? No MIGRATION.590 5808183 Information not available 04/06/2022 How Many Years Have You Smoked Tobacco? 50 MIGRATION.125 4777544 Information not available 04/06/2022 Have You Recently Traveled Abroad? No MIGRATION.719 4593741 Information not available 04/06/2022 Do You Have Difficulty Walking Or Climbing Stairs? Yes MIGRATION.240 [id number] Information not available 04/06/2022 Do You Have Any Dietary Restrictions? No MIGRATION.787 9900102 Information not available 04/06/2022 Sex: Female Functional Status Question Answer Note LastModified by Organizat [employer] Details LastModified Time Do you use any illicit or recreational drugs? No MIGRATION.560683 0212 Information not available 04/06/2022 Do you or have you ever used any other forms of tobacco or nicotine? No MIGRATION.453205 0946 Information not available 04/06/2022 What is your level of alcohol consumption? None MIGRATION.590273 1072 Information not available 04/06/2022 Are you currently employed? No Retired [email or web address] Information not available 07/19/2023 Do you have transportation difficulties? No MIGRATION.042134 3152 Information not available 04/06/2022 Are you able to walk independently without assistance or assistive devices? YESWOREST MIGRATION.837765 3949 Information not available 04/06/2022 Do you have difficulty doing errands alone? No MIGRATION.807206 9079 Information not available 04/06/2022 Are you able to care for yourself independently? Yes MIGRATION.788003 9532 Information not available 04/06/2022 Do you have difficulty dressing, bathing, grooming, or toileting? No MIGRATION.141265 4394 Information not available 04/06/2022 What is your exercise level? None MIGRATION.749837 1058 Information not available 04/06/2022 Mental Status Question Answer Note LastModified by Organizat [employer] Details LastModified Time Do you feel stressed (tense, restless, nervous, or anxious, or unable to sleep at night)? [id number] MIGRATION.[id number] 26 Information not available 04/06/2022 Do you have difficulty concentrating, remembering or making decisions? No MIGRATION.57546763 26 Information not available 04/06/2022 Family History Relationship Description Onset Age of this Age Resolved Age Notes LastModified by Organization Details LastModified Time Brother Aneurysm MIGRATION.410 [id number] Not available 04/06/2022 05:56:39 Brother Carcinoma of prostate MIGRATION.792 [id number] Not available 04/06/2022 05:56:39 Father Carcinoma of prostate MIGRATION.828 [id number] Not available 04/06/2022 05:56:39 Sister Hodgkin's disease (clinical) MIGRATION.385 [id number] Not available 04/06/2022 05:56:39 Mother Well adult MIGRATION.038 [id number] Not available 04/06/2022 05:56:40 Medical History Condition Response NERVE DISEASE N BLINDNESS N RHEUMATIC FEVER N KIDNEY STONES N BLADDER PROBLEMS N MRSA N OTHER # 1 N POLIO N LUNG DISEASE/DISORDER N HISTORY OF DRUG ABUSE N COPD Y RADIATION / CHEMOTHERAPY N Other # 2 N BLOOD DISEASES N [...] PULMONARY EMBOLISM N AUTOIMMUNE DISEASE N Gynecological History Statement/Question Response How many live births 2 Date of Last Colonoscopy Date of Last Mammogram Date of LMP Most Recent Bone Density Date of Last Pap Current Control Method Hysterectom y Obstetrics History GPAL:G 2 P 2 0 0 2 Type Value Multiple Births 0 Full Term 2 Induced 0 Spontaneous 0 Premature 0 Living 2 Ectopics 0 Total 2 Immunizations Vaccine Type Date Status Note Provider Nam e and Address Organization Details Recorded Time Influenza, high-dose, quadrivalent, PF 3 completed WINSTON BarreraA null, [facility] 12/01/2022 15:53:55 Influenza, high-dose, quadrivalent, PF 0 completed Rain Gill RMA null, [facility] 09/21/2023 15:05:54 COVID-19, mRNA, LNP-S, PF, 30 mcg/0.3 mL dose 1 completed Rain Gill RMA null, [facility] 09/21/2023 15:05:54 COVID-19, mRNA, LNP-S, PF, 30 mcg/0.3 mL dose 1 completed Rain Gill RMA null, [facility] 09/21/2023 15:05:54 COVID-19, mRNA, LNP-S, PF, 30 mcg/0.3 mL dose, talia-sucrose 2 completed Rain Gill RMA null, [facility] 09/21/2023 15:05:54 pneumococcal polysaccharide PPV23 6 completed Rain Gill RMA null, [facility] 09/21/2023 15:05:54 Tdap 3 completed Rain Gill RMA null, [facility] 09/21/2023 15:05:54 Influenza, high-dose, trivalent, PF 6 completed Rain Gill RMA null, [facility] 09/21/2023 15:05:54 Influenza, high-dose, trivalent, PF 9 completed Rain Gill RMA null, [facility] 09/21/2023 15:05:54 Influenza, high-dose, trivalent, PF 8 completed Rain Gill RMA null, [facility] 09/21/2023 15:05:54 Influenza, high-dose, trivalent, PF 7 completed Rain Gill RMA null, [facility] 09/21/2023 15:05:54 Influenza, split virus, trivalent, preservative 3 completed Rain Gill RMA null, [facility] 09/21/2023 15:05:54 Influenza, split virus, trivalent, preservative 5 completed Rain Gill RMA null, [facility] 09/21/2023 15:05:54 Influenza, split virus, quadrivalent, PF 1 completed WINSTON WilkinsA xin, [facility] 09/21/2023 15:05:54 RSV, recombinant, protein subunit RSVpreF, adjuvant reconstituted, 0.5 mL, PF 4 completed MALIKA Wilkins, [facility] 09/21/2023 15:06:18 COVID-19, mRNA, LNP-S, PF, 100 mcg/0.5mL dose or 50 mcg/0.25mL dose 1 completed Rain Gill RMA xin, [facility] 09/21/2023 15:05:54 COVID-19, mRNA, LNP-S, PF, 100 mcg/0.5mL dose or 50 mcg/0.25mL dose 1 completed Rain Gill RMA xin, [facility] 09/21/2023 15:05:54 Influenza, high-dose, trivalent, PF 9 completed Rain Gill RMA null, [facility] 09/21/2023 15:05:54 influenza, unspecified formulation 8 completed Not Available [facility] 08/22/2022 08:15:40 Influenza, high-dose, quadrivalent, PF 1 completed Rain Gill RMA null, [facility] 09/21/2023 15:05:54 Influenza, high-dose, trivalent, PF 0 completed Rain Gill, RMMahi null, [place] [facility] 09/21/2023 15:05:54 influenza, unspecified formulation 7 completed Not Available [facility] 08/22/2022 08:15:40 pneumococcal polysaccharide PPV23 7 completed Not Available [facility] 08/22/2022 08:15:40 Pneumococcal conjugate PCV 13 6 completed Not Available [facility] 08/22/2022 08:15:40 Influenza, high-dose, quadrivalent, PF 2 completed Not Available [facility] 08/22/2022 08:15:40 Past Encounters Encounter ID Performer Location Encounter Start Date Encounter Closed Date Diagnosis/Indication Diagnosis SNOMED-CT Code Diagnosis ICD10 Code Diagnosis IMO Codes Diagnosis Note [id number] David talamantes MD [facility] Primary Care [facility] [address] [place] [address] 09/10/2024 08:53:20 09/10/2024 09:09:09 [id number] David talamantes MD [facility] Care [facility] [address] [place] [address] 09/18/2024 10:49:07 09/18/2024 12:07:36 Vitamin D deficiency 21945939 E55.9 Repeat the vit d level Screening - NAD 49059210 3 Z13.9 C-scope: Dr Judith waterman 10/02/17: Next 5-10 years09/10: Dr Judith waterman EGD and c-scope Mammogram: 09/19/17: NegMammogr am: 09/18/2019 : NegMammogr am: 04/19/2021 : NegMammogr am: 05/10/2022 : NegMammogr am: 08/21/2023 : NegMammogr am: 09/02/2024 : Neg PAP: Not doing this at this time, no complaints DEXA: 10/24/17: Declines any prolia can do the vit d and calciumDEX A: 09/20/2019 : Osteopenia , on Ca and Vit dDEXA: 05/10/2022 : Osteopenia , did not want any prescripti on needs to do Ca and VIT DDEXA 09/02/2024 : OP: Should be on prolia, has declined any medication s UTD on the flu shotUTD on the PCV #13 and #23Can do Tdap and shingles vaccineUTD on COVID 19 vaccine as per her historyCan do RSV and new COVID 19 vaccine RTC in 3 monthsDo labsER if worseShe did verbalize her understand ing of the above Hypothyroidism 29395926 E03.9 On levothyrox ine 150mcgs daily, renewed 10/23/2023 with UnithroidU S thyroid 05/06/2024 Does well Get labs Anemia 177116248 D64.[address] Alvarenga 07/18/2024 , next in 3 months Essential hypertension 48261408 I10 On Coreg 6.25mg dailyNot taking the HCTZ 12.5mg daily Does wellGet labsDoes need to see Dr Ferreira [facility] Hyperlipidemia 35275273 E78.5 On ASANot on simvastati n 40mg dailyNot on atorvastat in 40mg dailyNot on pitavastat in 2mg dailyOn zetia 10mg daily Does wellHas been eating more carbs,more diet and exerciseGe t labs Chronic ob structive pulmonary disease 07139443 J44.9 Seen Joleen Gambino NPNow to get a in lab sleep study as per her historyNow wants to see pulm in [place], referred 09/18/2024 Hyperglycemia 65257435 R 73.9 On metformin 500mg po bid Needs to diet and exerciseNe eds to do labs and see eye and foot Increased liver function 47571355 R94.5 US liver 12/27/21CT A/P 01/13/2022 CMP: LFTs WNL 04/18/2022 Should see GI hepatology , states that she did not do this the last time as she did not have the rideReferr ed again 10/23/2023 Hydroureter 07288951 N13 .4 S/p CT A/P 01/13/2022 Aneurysm o f thoracic aorta 250963346 I71.[address] Ferreira [facility], as per note 04/27/2022 , TAA is 4.2cm, f/u in 6 monthsDr Ferreira [facility] 03/21/2023 , f/u in 6 months, is to get CT C/A/P on 10/30/2023 OV 09/18/2024 :Now will see Dr Ferreira [facility] Hypercalcemia 37420656 E 83.52 NM parathyroi d scan 12/16/2022 Dr Duran, may need to see ENT also, low vit d, will need to discuss with nephrology about taking vit d, she also would like a referral to endocrine, as her nephrologi st told her she need to see an endocrine MD, referred to Dr Mi Villegas 04/30/2024 , f/u in 3 months, referred 09/18/2024 Bleeding from nose [address] Baryon Morin ENT 03/16/2023 CTA neck 07/07/2023 Pain of ri ght hip joint 1322599368 21292 M25.551 S/p surgery Dr Garcia/u visit 04/22/2024 and next in one year Moderate r ecurrent major depression 13397008 F33.1 Feels overwhelme d with her medical issues, also has to take care of her sister who has had surgery, not suicidal or homicidalO n sertraline , all side effects explained to her OV 09/18/2024 :Now will increase sertraline 50mg dailyAll side effects explainedN ot suicidal or homicidalD eclines any referral for psychiatry [id number] Freddie Power MD [facility] [place] [address] [place] [address] 10/01/2024 11:15:33 10/08/2024 08:56:11 Asthma 254152962 J45.909 PFT 04/2022 normalMeth acholine challenge 05/[address] angiogram done 2023 she does shows some atelectasi s and emphysema changes-wh ich she may have overlap COPD/asthm aRAST with several positivesI GE, IGGs, Quantifero n GOLD all normalDecl yenny maintenanc e medication Will send for Airsupra prnShe is aware to get OTC Claritin and Astepro to use on high allergy months to help-she declines sr risk management consultant. Alpha-1-an titrypsin deficiency 21901908 E88.01 Alpha1 MZ with level of 83Extensiv [...] has been seen in MZ population s. Ex-smoker 5489082 Z87.[id number] chest next visit (declines to do right now)-wants to wait till then-last Ct chest/pelv is/abd in 10/2023 with emphysema changes History of respiratory disease 471621258 Z86.69 [id number] Notes she uses daily-note s she does not need a follow-up for this today but will call when she is due. Health Concerns Section Related Observation LastModified by Organization Detai ls LastModified Time None Recorded Concern Status LastModified by Organization Details LastModified Time None Recorded Payers Encounter Date Sequence Insurance Name Policy Number Policy Alberto Covered Member ID Alberto Member ID Guarantor Name 10/01/2024 1 [place] Jorykalyan Mart [id number] Jory Mahi Hessel 10/01/2024 2 [place] WHEN MEDICARE OR MEDICARE REPLACEMENT PRIMARY) Jory Mahi Caraballoel [id number] Jorykalyan Mart Notes Date Note Type Note Provider Name and Address Organization Details Recorded Time 10/01/2024 text/html AsthmaReported b y PatientHPIFor quality, patient reportswell-controlle d. For severity, patient reportsno decrease in activities of daily livingandimproving. For timing, patient reportsinfrequent. For context, patient reportsallergic rhinitis. For aggravating factors, patient reportschanges in weatherandpollen. For alleviating factors, patient reportsnone. For associated symptoms, patient reportsno fever,no fatigue,no cough,no anorexia,no dyspnea,no wheeze,no tachypnea,no retractions, andno sleep disturbance.she was a patient of prior DOLL SURGEON in this practice-review of her notes shows patient with hx of asthma per methacholine challenge, Alpha-1 MZ, high allergy panel and former smoker.Patient notes no issues-has not filled the Symbicort prescribed to her at her last pulmonology visit-she feels she doesn't need it and it costs too much. The rx was done about 2 years ago. She says on occasion after being outside she can get wheezy and some runny nose.ROS as noted in the HPI Ms Mart presents today to follow up on abnormal chest imaging, history of nicotine dependence, dyspnea on exertion, OSASymptoms are largely unchangedShe has not used albuterolShe can dress and bathe without dyspneaNo concerns with ADLS related to shortness of breath.Denies chest pain, wheezing, hemoptysis.She does have a very small cough in the mornings, mildly productive of clear sputum, unchangedNo unintentional weight loss.She does not wake at night R/T respiratory symptoms.Endorses fatigue and restless sleep.She has completed her sleep study at homeNo other significant changes except she tells me she has difficulty turning my brain off at night when she lays down to try to sleep, also worries significantly during the day Vonda Carolina NP [address], [place], [address], [facility] 10/02/2024 09:22:48 OBGyn Episode No OBEpisode recorded.
--- OUTSIDE RECORDS SUMMARY | 2024-12-27 09:30 | XMS_ITS | Data Portability ---
Author Organization [place] [facility] [employer], Main Office Address [address] [place] [address] Care Team Providers Care Cessation Systems Outreach Specialist Name Role Phone SANJUANITA BACH Primary Care Provider SYMONE FERREIRA Admissions Nurse MALLORY VILLEGAS Rod Greaser Assessment Encounter Date Assessment Date Assessment LastModified by Organization Details LastModified Time 09/18/2024 09/18/2024 04/18/2022: A1C 6.2H Urine alb 21.0 VIT [...] LDL 116 H/H 11.1/35.2 07/13/2023: Dr Alvarenga B12/Folate:WNL HGB 11.1 10/16/2023: VIT D 21.1 A1C 6.0 Chol 201, TG 189, LDL 120 Gluc 135, Ca 10.8, Alb 4.5 05/21/2024: VIT D 28.3 H/H 9.2/32.3, MCV 71.1, PLT 439 LDL 121 Gluc 128 09/10/2024: A1C 5.9 Gluc 130, Ca 11.2H Chol 210, TG 194 HGB 12.9 45 minutes spent from 10.05am till 10.50am with the patient in the office, reviewed labs and referred to various consults and updated her chart [email or web address] Not available 09/18/2024 11:56:43 10/01/2024 10/01/2024 Time spent with patient included: preparing to see patient by reviewing tests, obtaining and reviewing history, medical examination and evaluation, counseling and educating the patient, ordering medications and tests, documenting clinical information in EHR, independently interpreting results and communicating results to the patient for a total of 50 minutes. [email or web address] Not available 10/02/2024 09:22:44 12/25/2024 12/25/2024 04/18/2022: A1C 6.2H Urine alb 21.0 VIT [...] LDL 116 H/H 11.1/35.2 07/13/2023: Dr Alvarenga B12/Folate:WNL HGB 11.1 10/16/2023: VIT D 21.1 A1C 6.0 Chol 201, TG 189, LDL 120 Gluc 135, Ca 10.8, Alb 4.5 05/21/2024: VIT D 28.3 H/H 9.2/32.3, MCV 71.1, PLT 439 LDL 121 Gluc 128 09/10/2024: A1C 5.9 Gluc 130, Ca 11.2H Chol 210, TG 194 HGB 12.9 12/23/2024: A1 5.8 Gluc 126 Chol 209, TG 171, LDL 135 HGB 13.1 [email or web address] Not available 12/25/2024 08:47:59 Plan of Treatment Reminders Order Date Submit Date Provider Last Modified By Organization Details Last Modified Time Details Appointments Any 2025 11:00A Aurelia Carolina NP Not available Not available Not available Any 2025 02:00P Aurelia freitas MD Not available Not available Not available Lab glycohemo globin, total, blood [address] (Lab), [address] [place], [address], 12/25/2024 14:33:39 microalbu min, urine [address] (Lab), [address] [place], [address], 12/25/2024 14:33:46 vitamin D, 25-hydrox y, total, serum [address] (Lab), [address] [place], [address], 12/25/2024 14:33:37 lipid panel, serum [address] (Lab), [address] [place], [address], 12/25/2024 14:33:44 CMP, serum or plasma [address] (Lab), [address] [place], [address], 12/25/2024 14:33:34 CBC w/ auto diff [address] (Lab), [address] [place], [address], 12/25/2024 14:33:48 TSH, serum or plasma [address] (Lab), [address] [place], [address], 12/25/2024 14:33:29 lipid panel, serum 2024 025 [facility] (Lab), [address] [place], [address], 12/23/2024 16:49:57 CMP, serum or plasma 2024 025 [facility] (Lab), [address] [place], [address], 10/10/2024 15:55:26 CBC w/ auto diff 2024 025 [facility] (Lab), [address] [place], [address], 12/23/2024 13:42:28 TSH, serum or plasma 2024 025 [facility] (Lab), [address] [place], [address], 12/23/2024 17:21:55 glycohemo globin, total, blood 2024 025 [facility] (Lab), [address] [place], [address], 12/23/2024 14:42:06 microalbu min, urine 2024 025 [facility] (Lab), [address] [place], [address], 09/25/2024 13:17:58 vitamin D, 25-hydrox y, total, serum 2024 025 [facility] (Lab), [address] [place], [address], 10/18/2024 18:36:46 Referral podiatris t referral - Please call pt to schedule appt. Thank you 2024 025 [email or web address] Bharath Hoang DPM, [address], [place], [address], 12/26/2024 11:06:34 endocrino logy referral - Please call patient to schedule an appointme nt. Thank you. 2024 025 [email or web address] Mallory Villegas MD, [address], [place], [address], 12/26/2024 11:06:53 cardiolog ist referral - Please call patient to schedule an appointme nt. Thank you. 2024 025 [email or web address] [place], [address] [address] , [address], [address], 12/26/2024 11:06:53 gastroent erologist referral - Please call pt to schedule appointme nt. Thank you 2024 025 [email or web address] Tim Sainz MD, [address] [facility] [address], [place], [address], 12/26/2024 11:06:33 endocrino logy referral - Please call patient to schedule an appointme nt. Thank you. 2024 025 Mallory Villegas MD, [address], [place], [address], 12/17/2024 09:39:16 gastroent erologist referral - Please call pt to schedule appointme nt. Thank you 2024 025 [email or web address] Janes Vora MD, [address] [place], [address], 12/19/2024 15:21:55 pulmonolo gist referral - Please call patient to schedule an appointme nt. Thank you. 2024 025 [email or web address] Vonda Carolina NP, [address] [facility], [place], [address], 09/19/2024 10:59:06 podiatris t referral - Please call pt to schedule appt. Thank you 2024 025 [email or web address] Bharath Hoang DPM, [address], [place], [address], 12/19/2024 15:21:55 cardiolog ist referral - Please call patient to schedule an appointme nt. Thank you. 2024 025 [place], [address], [address], [address], 12/17/2024 09:39:15 Procedures None recorded. Surgeries None recorded. Imaging None recorded. Medication Orders Repatha SureClick 140 mg/mL subcutane ous pen injector [address] [facility] [address] [place], [address], 12/25/2024 14:33:33 Airsupra 90 mcg-80 mcg/actua tion HFA aerosol inhaler [address] [facility] [address] [place], [address], 10/01/2024 12:01:33 sertralin e 50 mg tablet [address] [facility] [address] [place], [address], 09/18/2024 11:57:05 Patient TargetsNo targets recorded. Patient Instructions Encounter Date Encounter Id Patient Instructions Last Modified By Organization Details Last Modified Time 10/01/2024 [id number] complete PFT w/ post bronchodilator spirometry* - Please call patient to schedule. [email or web address] Not available 11/13/2024 10:34:13 12/25/2024 [id number] diabetic eye exam* chicho lea 2 Not available 12/25/2024 14:33:23 Reason for Referral Petrographer Referral for Increased liver function Please call pt to schedule appointment. Thank you Referring Physician: Sanjuanita Bach Internal Medicine, Encounter Date: 09/18/2024 Linseed Oil Temperer Referral for Hype rglycemia Please call pt to schedule appt. Thank you Referring Physician: Sanjuanita Bach Internal Medicine, Encounter Date: 09/18/2024 Admissions Nurse Referral for Es sential hypertension Please call patient to schedule an appointment. Thank you. Referring Physician: Sanjuanita Bach Internal Medicine, Encounter Date: 09/18/2024 Endocrinology Referral for H ypercalcemia Please call patient to schedule an appointment. Thank you. Referring Physician: Sanjuanita Bach Internal Medicine, Encounter Date: 09/18/2024 Planting Material Carrier Referral for C hronic obstructive pulmonary disease Please call patient to schedule an appointment. Thank you. Referring Physician: Sanjuanita Bach Internal Medicine, Encounter Date: 09/18/2024 Petrographer Referral for Increased liver function Please call pt to schedule appointment. Thank you Referring Physician: Sanjuanita Bach Internal Medicine, Encounter Date: 12/25/2024 Linseed Oil Temperer Referral for Hype rglycemia Please call pt to schedule appt. Thank you Referring Physician: Sanjuanita Bach Internal Medicine, Encounter Date: 12/25/2024 Admissions Nurse Referral for Es sential hypertension Please call patient to schedule an appointment. Thank you. Referring Physician: Sanjuanita Bach Internal Medicine, Encounter Date: 12/25/2024 Endocrinology Referral for H ypercalcemia Please call patient to schedule an appointment. Thank you. Referring Physician: Sanjuantia Bach Internal Medicine, Encounter Date: 12/25/2024 Results Created Date Observation Date Name Description Value Unit Range Abnormal Flag Note LastModifiedBy Organization Detail LastModifiedTime 09/03/192025 DEXA, axial skele ton Examin ation: XR DEXA-H IPS PELVIS SPINE Clinic al Indica tion: Post menopa usal. Compar prince: 2022. Techni que: Dual-e nergy X-ray absorp [...] thresh old for osteop orosis . Impres fei: 1. Osteop orosis is diagno sed based on a T score of -2.7 at the L1 verteb ra. 2. Osteop orosis is also presen t at the left femur with a T score of -2.5. Electr onical ly Signed 025 16:25 Piampi ano [facility] (Imaging) [address] [place], [address], 09/02/2024 17:26:06 09/03/19 25 09/02/2024 bone densi ty No observ ation record ed. [facility] [address] [place], [address], 09/02/2024 18:21:26 09/15/19 25 09/02/2024 scree efren breas t kerline, bilat [facility] [place] [address] [place] [address] [phone] Romero t Name: HOA MART Access ion #: [id number] Sex: F : 1945 2 Dictat ed By: Trixie Hernandez Attend ing Physic tamiko: MORENA ABDUL [facility] Physic tamiko: MORENA ABDUL Exam Date: 2024 14:31 PM Exam Name: MG SCRN BREAST KERLINE BILAT Admitt ing Diagno sis(es ): PROCED URE: SCREEN ING MAMMOG CLEMENT WITH TOMOSY NTHESI S REASON FOR EXAM: screen ing mammog clement COMPAR PRINCE: MG DIGITA L JOSE BILAT SCREEN 2D [...] alcifi cation s or masses . IMPRES FEI: No findin gs of malign hugo. Page 1 [facility] [place] [address] [facility] [place] [address] Patien t Name: HOA MART Access ion #: [id number] Sex: F : 1945 2 Dictat ed By: Trixie Hernandez Attend ing Physic tamiko: [place]IA BAILEY Orderi ng Physic tamiko: MORENA ABDUL Exam Date: 2024 14:31 PM Exam Name: MG SCRN BREAST KERLINE BILAT Admitt ing Diagno sis(es ): RECOMM ENDATI ON: Recomm end annual mammog clement. ASSESS MENT: BIRADS : 1 - Negati ve Electr onical ly Signed by: Trixie Hernandez at 2024 18:00: 22 PM Page 2 INTERFACE [facility] (Imaging) [address] [place], [address], 09/14/2024 19:02:36 09/15/1909/02/2024 MAMMO , scree efren, digit al, bilat eral No observ ation record ed. [facility] [address] [place], [address], 09/14/2024 19:05:21 Result Notes None recorded. Problems Name Problem SNOMED Code Status Onset Date Resolution Date Notes Provider Name and Address Organization Details Recorded Time Pain of hip region 50574576 Active Not Available [facility] 3 08:15:39 Hypolipid emia 601882565 Completed 201702/20/2017 Not Available [facility] 3 06:02:36 Iron deficienc y 49391865 Active 2017 Not Available [facility] 3 08:15:39 Hypertens pedro disorder 16027417 Active 2017 Not Available [facility] 3 08:15:39 Hypothyro idism 38751666 Active 2017 Not Available [facility] 3 08:15:39 Hyperlipi demia 38248594 Active 2017 Not Available [facility] 3 08:15:39 Vertigo 103654275 Active 2021 Not Available [facility] 3 08:15:39 Vitamin D deficienc y 63635287 Active 2021 Not Available [facility] 3 08:15:39 Liver enzymes level above reference range 073672939 Active 2021 Not Available [facility] 3 08:15:39 Chronic kidney disease 938662501 Active 2021 Not Available [facility] 3 08:15:39 Hyperglyc emia 21975665 Active 2021 Not Available [facility] 3 08:15:39 Hydrouret er 22320377 Active 2021 Not Available [facility] 3 08:15:39 COVID-19 831985532 Active 2021 Not Available [facility] 3 08:15:39 Non-alcoh olic fatty liver 700128432 Active 2021 Not Available [facility] 3 08:15:39 Aneurysm of thoracic aorta 507930953 Active 2021 Not Available [facility] 3 08:15:39 Pulmonary emphysema 91723729 Active 2021 Not Available [facility] 3 08:15:39 Dyspnea on exertion 21025087 Active 2022 Not Available [facility] 3 08:15:39 Sleep apnea 69717666 Active 2022 Not Available [facility] 3 08:15:39 Obstructi ve sleep apnea syndrome 88137376 Active 2022 Not Available [facility] 3 08:15:39 Secondary pulmonary hypertens ion 34087912 Active 2022 Not Available [facility] 3 08:15:39 Hypoxia 894720505 Active 2022 Not Available [facility] 3 08:15:39 Alpha-1-a ntitrypsi n deficienc y 42963783 Active 2022 Not Available [facility] 3 08:15:39 Anemia 924958496 Active 2022 Not Available [facility] 3 08:15:39 Essential hypertens ion 93467971 Active 2022 Not Available [facility] 3 08:15:39 Chronic obstructi ve pulmonary disease 08077989 Active 2022 Not Available [facility] 3 08:15:39 Skin lesion 44419388 Active 2022 Not Available [facility] 3 08:15:39 Increased liver function 52676071 Active 2022 Not Available [facility] 3 08:15:39 Type 2 diabetes mellitus without complicat ion 778526860 Active 2022 Not Available [facility] 3 08:15:39 Asthma 848220859 Active 2022 Not Available [facility] 3 08:15:39 Hypercalc emia 47085375 Active 2022 Not Available [facility] 3 08:15:39 Cobalamin deficienc y 562987974 Active 2022 Lashon Jacobson null, [facility] 3 15:52:24 Bleeding from nose 552283760 Active 2023 Sanjuanita talamantes MD [address], [place], [address] , [facility] 4 10:53:56 Pain of right hip joint 26735039681 9102 Active 2023 Sanjuanita talamantes MD [address], [address], [place], [address] , [facility] 4 11:25:29 Moderate recurrent major depressio n 50001779 Active 2023 Sanjuanita talamantes MD [address], [address], [place], [address] , [facility] 4 11:26:04 Diabetes mellitus 56939298 Active 2024 SABRINA [employer], [facility] 5 13:27:40 Notes:[facility] home sleep study 03/15/22 AHI = 4 [facility] diagnostic sleep study 06/29/22 AHI = 9, [...] replacement of hip completed Brandi Gifford MA [facility] [employer] [facility] 05/29/2024 11:36:27 07/19/19 24 Medicare Wellness CPT Code, subsequent completed Deven Stacy LPN [place] [employer] [facility] [employer] [facility] 07/17/2023 18:32:38 07/19/19 24 Advanced Care Planning completed Deven Stacy LPN [facility] [employer] [facility] 07/19/2023 11:12:06 04/28/19 23 Medicare Wellness CPT Code, subsequent completed Adele Valencia RN [facility] [employer] [facility] 04/27/2022 11:20:50 04/28/19 23 Advanced Care Planning completed Adele Valencia RN [facility] [employer] [facility] 04/27/2022 11:23:21 01/01/20 20 excision of skin carcinoma completed Not Available [facility] 04/06/2022 05:56:38 10/22/19 17 Ther radiology tx plng smpl completed Not Available [facility] 04/06/2022 05:56:38 09/18/19 13 Stent placemt retro carotid completed Not Available [facility] 04/06/2022 05:56:38 02/17/19 11 Cholecystectomy completed Not Available [facility] 04/06/2022 05:56:38 Nipple/areola reconstruction completed Not Available [facility] 04/06/2022 05:56:38 excision of skin carcinoma completed Not Available [facility] 04/06/2022 05:56:38 Skin Graft completed Not Available [facility] 04/06/2022 05:56:38 Colonoscopy completed Not Available [facility] 04/06/2022 05:56:38 Hysterectomy completed Not Available [facility] 04/06/2022 05:56:38 Appendectomy completed Not Available [facility] 04/06/2022 05:56:38 EGD completed Not Available [facility] 04/06/2022 05:56:38 Imaging Results None recorded. Procedure Notes None recorded. Medical Equipment None Reported. Allergies Allergen ID Allergen Name Allergen Category Reaction Reaction Severity Criticality Documentation Date Start Date Code Code System Note Provider Name and Address Organization Details Recorded Time 85660 Non-stero idal anti-infl ammatory agent (substanc e) medicatio n nausea severe Not available 04/06/2022 84199 5008 SNOMED Not Available [facility] 3 06:09:23 61984 Demerol medicatio n hallucina tions Not available Not available 04/06/2022 67834 1 RxNorm Not Available [facility] 3 06:09:23 74320 codeine medicatio n itching Not available Not available 04/06/2022 2670 RxNorm Not Available [facility] 3 06:09:23 54408 ibuprofen medicatio n Not available Not available high 12/20/20242021 5640 RxNorm Not Available [facility] [employer] - prod 5 08:39:28 44015 meperidin e medicatio n hallucina tions Not available low 12/20/20242017 6754 RxNorm Not Available [facility] [employer] - prod 5 08:39:28 69649 morphine medicatio n itching Not available low 12/20/20242019 7052 RxNorm Not Available [facility] [employer] - prod 5 08:39:28 90410 Pethidine analog (substanc e) medicatio n Not available Not available Not available 12/20/20242023 54450 0004 SNOMED unrec ogniz ed react ion (text : Unkno wn, code: [id number]) (from exter nal sourc e) Not Available [employer] [place] [employer] - prod 5 08:39:42 Medications Name Sig Start Date Stop [...] pitavast atin. Valid: 05/02/23 until futher notice. PA# [id number] 335. Not Available Not Available Not Available [...] weight Body temperature Heart rate Oxygen saturation Pain severity - 0-10 verbal numeric rating [Score] - Reported Systolic And Diastolic Provider Name and Address Organization Details Last Updated DateTime 5 157.48 cm 35.5 kg/m2 33434.9 2 g 98.3 [degF] 69 /min 93 % 0 124/78 mm[Hg] Brandi Gifford MA [place] [facility] [employer] 5 11:02:53 Date Recorded Body height Body mass index (BMI) Body weight Body temperature Heart rate Oxygen saturation Systolic And Diastolic Provider Name and Address Organization Details Last Updated DateTime 5 157.48 cm 35.7 kg/m2 58978.5 1 g 97.6 [degF] 75 /min 95 % 118/80 mm[Hg] Celina Jhaveri RN [facility] [employer] 5 11:26:35 Date Recorded Body height Body mass index (BMI) Body weight Body temperature Heart rate Oxygen saturation Pain severity - 0-10 verbal numeric rating [Score] - Reported Systolic And Diastolic Provider Name and Address Organization Details Last Updated DateTime 5 157.48 cm 35.9 kg/m2 24782.9 g 98.1 [degF] 84 /min 90 % 0 134/86 mm[Hg] Brandi Gifford MA [facility] [employer] [facility] 5 14:11:27 Social History Question Answer Notes LastModified by Organization Details LastModified Time Tobacco Smoking Status Former Smoker Not Available [facility] 04/06/2022 05:54:10 Do You Have An Advance Directive? No Information Provided Information not available 04/27/2022 Are You Blind Or Do You Have Difficulty Seeing? No MIGRATION.008 [id number] Information not available 04/06/2022 Is Blood Transfusion Acceptable In An Emergency? Yes [email or web address] Information not available 07/19/2023 What Is Your Level Of Caffeine Consumption? Moderate MIGRATION.967 [id number] Information not available 04/06/2022 In The 14 Days Before Symptom Onset, Have You Had Close Contact With A Laboratory-conf irmed COVID-19 While That Case Was Ill? No MIGRATION.815 [id number] Information not available 04/06/2022 In The 14 Days Before Symptom Onset, Have You Had Close Contact With A Person Who Is Under Investigation For COVID-19 While That Person Was Ill? No MIGRATION.497 [id number] Information not available 04/06/2022 Are You Deaf Or Do You Have Serious Difficulty Hearing? No MIGRATION.141 [id number] Information not available 04/06/2022 What Type Of Diet Are You Following? DIABETIC Information not available 04/27/2022 What Is The Highest Grade Or Level Of School You Have Completed Or The Highest Degree You Have Received? BG46018-5 MIGRATION.262 [id number] Information not available 04/06/2022 Have There Been Any Changes To Your Family Or Social Situation? No MIGRATION.694 [id number] Information not available 04/06/2022 What Is The Fluoride Status Of Your Home? Fluoridated MIGRATION.995 [id number] Information not available 04/06/2022 When Did You Quit Smoking? 1-5yearssincelastc igarette 03/09/21 MIGRATION.934 [id number] Information not available 04/06/2022 Are There Any Guns Present In Your Home? No MIGRATION.638 6830070 Information not available 04/06/2022 Do You Use Insect Repellent Routinely? No MIGRATION.366 3251286 Information not available 04/06/2022 Where Do You Live? SingleLevelHouse MIGRATION.485 4245399 Information not available 04/06/2022 Presence Of Domestic [...] Do You Have A Medical Power Of [place] Technician? No MIGRATION.893 [id number] Information not available 04/06/2022 What Was The Date Of Your Most Recent Tobacco Screening? 12/25/2024 [email or web address] Information not available 12/25/2024 Do You Have Any Pets? No MIGRATION.052 [id number] Information not available 04/06/2022 What Is Your Relationship Status? MIGRATION.950 [id number] Information not available 04/06/2022 Do You Use Your Seat Belt Or Car Seat Routinely? Yes MIGRATION.413 5112979 Information not available 04/06/2022 Do You Have Smoke And Carbon Monoxide Detectors In Your Home? Yes MIGRATION.022 6669196 Information not available 04/06/2022 At What Age Did You Start Smoking Tobacco? 26 MIGRATION.369 8513844 Information not available 04/06/2022 Are You Passively Exposed To Smoke? No MIGRATION.618 1644739 Information not available 04/06/2022 Are There Any Smokers In Your House? No MIGRATION.895 [id number] Information not available 04/06/2022 Do You Use Sunscreen Routinely? No MIGRATION.707 [id number] Information not available 04/06/2022 Has Tobacco Cessation Counseling Been Provided? No MIGRATION.309 [id number] Information not available 04/06/2022 How Many Years Have You Smoked Tobacco? 50 MIGRATION.091 [id number] Information not available 04/06/2022 Have You Recently Traveled Abroad? No MIGRATION.457 8324281 Information not available 04/06/2022 Do You Have Difficulty Walking Or Climbing Stairs? Yes MIGRATION.778 [id number] Information not available 04/06/2022 Do You Have Any Dietary Restrictions? No MIGRATION.312 3825402 Information not available 04/06/2022 Sex: Female Functional Status Question Answer Note LastModified by [employer] Details LastModified Time Do you use any illicit or recreational drugs? No MIGRATION.208276 7843 Information not available 04/06/2022 Do you or have you ever used any other forms of tobacco or nicotine? No MIGRATION.191669 4638 Information not available 04/06/2022 What is your level of alcohol consumption? None MIGRATION.062851 4415 Information not available 04/06/2022 Are you currently employed? No Retired [email or web address] Information not available 07/19/2023 Do you have transportation difficulties? No MIGRATION.343492 2292 Information not available 04/06/2022 Are you able to walk independently without assistance or assistive devices? YESWOREST MIGRATION.901350 7491 Information not available 04/06/2022 Do you have difficulty doing errands alone? No MIGRATION.204878 0599 Information not available 04/06/2022 Are you able to care for yourself independently? Yes MIGRATION.473505 8466 Information not available 04/06/2022 Do you have difficulty dressing, bathing, grooming, or toileting? No MIGRATION.448597 7636 Information not available 04/06/2022 What is your exercise level? None MIGRATION.104269 2579 Information not available 04/06/2022 Mental Status Question Answer Note LastModified by [employer] Details LastModified Time Do you feel stressed (tense, restless, nervous, or anxious, or unable to sleep at night)? [id number] MIGRATION.10205894 26 Information not available 04/06/2022 Do you have difficulty concentrating, remembering or making decisions? No MIGRATION.65932662 26 Information not available 04/06/2022 Family History Relationship Description Onset Age of this Age Resolved Age Notes LastModified by Organization Details LastModified Time Brother Aneurysm [id number] Not available 04/06/2022 05:56:39 Brother Carcinoma of prostate [id number] Not available 04/06/2022 05:56:39 Father Carcinoma of prostate [id number] Not available 04/06/2022 05:56:39 Sister Hodgkin's disease (clinical) [id number] Not available 04/06/2022 05:56:39 Mother Well adult [id number] Not available 04/06/2022 05:56:40 Medical History Condition [...] Brain Problems N HERPES N DEMENTIA N SEIZURES/EPILEPSY N HEADACHES/MIGRAINES N VASCULAR DISEASE N PACEMAKER N Blood Disorder N DIZZINESS Y KIDNEY DISEASE Y HEART DISEASE/HEART PROBLEMS N MULTIPLE SCLEROSIS N CARDIAC ARRHYTHMIA N CANCER: SPECIFY Y Gall Stones N ATRIAL FIBRILLATION N PULMONARY EMBOLISM N AUTOIMMUNE DISEASE N [...] quadrivalent, PF 3 completed WINSTON BarreraA null, [facility] 12/01/2022 15:53:55 Influenza, high-dose, quadrivalent, PF 0 completed Rain Gill RMMahi null, [facility] 09/21/2023 15:05:54 COVID-19, mRNA, LNP-S, PF, 30 mcg/0.3 mL dose 1 completed Rain Gill RMMahi null, [facility] 09/21/2023 15:05:54 COVID-19, mRNA, LNP-S, PF, 30 mcg/0.3 mL dose 1 completed Rain Gill RMA xin, [facility] 09/21/2023 15:05:54 COVID-19, mRNA, LNP-S, PF, 30 mcg/0.3 mL dose, talia-sucrose 2 completed MALIKA Wilkins, [facility] 09/21/2023 15:05:54 pneumococcal polysaccharide PPV23 6 completed WINSTON WilkinsA null, [facility] 09/21/2023 15:05:54 Tdap 3 completed MALIKA Wilkins, [facility] 09/21/2023 15:05:54 Influenza, high-dose, trivalent, PF 6 completed Rain Gill RMA null, [facility] 09/21/2023 15:05:54 Influenza, high-dose, trivalent, PF 9 completed Rain Gill RMA null, [facility] 09/21/2023 15:05:54 Influenza, high-dose, trivalent, PF 8 completed [facility] 15:05:54 Influenza, high-dose, trivalent, PF 7 completed [facility]/21/[facility]23 15:05:54 Influenza, split virus, trivalent, preservative 3 completed [facility] 09/21/2023 15:05:54 Influenza, split virus, trivalent, preservative 5 completed [facility] 09/21/2023 15:05:54 Influenza, split virus, quadrivalent, PF 1 completed [facility]/21/2023 15:05:54 RSV, recombinant, protein subunit RSVpreF, adjuvant reconstituted, 0.5 mL, PF 4 completed Rain Gill [facility] 09/21/2023 15:06:18 COVID-19, mRNA, LNP-S, PF, 100 mcg/0.5mL dose or 50 mcg/0.25mL dose 1 completed [facility] 09/21/2023 15:05:54 COVID-19, mRNA, LNP-S, PF, 100 mcg/0.5mL dose or 50 mcg/0.25mL dose 1 completed Rain Gill RMA null, [facility] 09/21/2023 15:05:54 Influenza, high-dose, trivalent, PF 9 completed WINSTON WilkinsA null, [facility] 09/21/2023 15:05:54 influenza, unspecified formulation 8 completed Not Available [facility] 08/22/2022 08:15:40 Influenza, high-dose, quadrivalent, PF 1 completed Rain Gill RMMahi null, [facility] 09/21/2023 15:05:54 Influenza, high-dose, trivalent, PF 0 completed MALIKA Wilkins, [facility] 09/21/2023 15:05:54 influenza, unspecified formulation 7 completed Not Available [facility] 08/22/2022 08:15:40 pneumococcal polysaccharide PPV23 7 completed Not Available [facility] 08/22/2022 08:15:40 Pneumococcal conjugate PCV 13 6 completed Not Available [facility] 08/22/2022 08:15:40 Influenza, high-dose, quadrivalent, PF 2 completed Not Available [facility] 08/22/2022 08:15:40 Past Encounters Encounter ID Performer Location Encounter Start Date Encounter Closed Date Diagnosis/Indication Diagnosis SNOMED-CT Code Diagnosis ICD10 Code Diagnosis IMO Codes Diagnosis Note [id number] [facility]ita [facility]antes [facility] Mayra hawkins [address] [place] [address] [place] [address] 10/21/2020 00:00:00 10/21/2020 12:03:09 [id number] Sanjuanita talamantes MD Edin_[place] [facility] Internal [facility] Mayra hawkins [address] [place] [address] [place] [address] 04/19/2021 00:00:00 04/19/2021 10:34:18 [id number] MD FABI De Anda_[place] [facility] [place] Internal [facility] Mayra hawkins [address] [place] [address] [place] [address] 05/19/2021 00:00:00 05/19/2021 12:09:16 [id number] Sanjuanita talamantes MD [facility] Internal [facility] [address] y , [place] [address] 09/22/2021 00:00:00 09/22/2021 12:42:46 [id number] Sanjuanita talamantes MD [facility] Internal [facility] [address] , [place] [address] 01/05/2022 00:00:00 01/05/2022 12:59:39 [id number] Joleen Gambino [facility] Pulmon[place] [facility] [place] [address] [place] [address] 03/08/2022 00:00:00 03/08/2022 19:20:14 [id number] Joleen Gambino [facility] Pulmon[place] [address] [place] [address] 04/20/2022 12:17:43 04/21/2022 08:51:46 Pulmonary emphysema 68754939 J43.[address] chest completed 01/2022FIN DINGS:No pneumothor ax, pulmonary edema, pleural effusions, noncalcifi ed pulmonaryn odules, or consolidat pedro infiltrate s. There is severe paraseptal andcentril [...] IGGs, Quantifero n GOLD all normal Hypoxia 001411879 R09.02 Per home sleep studySix minute walk normal Sleep apnea 11011176 G47 .30 Home study with AHI 4Severe desaturati ons, 417 minutes with saturation s below 89%Check in lab study Alpha-1-an titrypsin deficiency 92253377 E88.01 Alpha1 MZ with level of 83Extensiv [...] levels in 3 months Secondary pulmonary hypertension 37564674 I27.21 PFT normalHypo ivan during home sleep studyOrder for in lab study as above [id number] Sanjuanita talamantes MD [facility] [place] haw[place] [address] [place] [address] 04/27/2022 10:45:50 04/27/2022 11:52:52 Adult health examination 646906547 Z00.00 Screening for disorder 135980786 Z13.9 Screening - NAD 15807979 3 Z13.9 C-scope: Dr Judith waterman 10/02/17: Next 5-10 years09/10: Dr Judith waterman EGD and c-scope Mammogram: 09/19/17: NegMammogr am: 09/18/2019 : NegMammogr am: 04/19/2021 : Neg PAP: Not doing this at this time, no complaints DEXA: 09/18/18: Declines any prolia can do the vit d and calciumDEX A: 09/20/2019 : Osteopenia , on Ca and Vit dOrdered UTD on the flu shotUTD on the PCV #13 and #23Can do Tdap and shingles vaccineUTD on COVID 19 vaccine as per her history RTC in 3 monthsDo labsER if worseShe did verbalize her understand ing of the above Screening mammography 24 855549 Z12.31 Screening for osteoporosis 341698872 Z13.820 Vitamin D deficiency 347 26855 E55.9 Get on vit d weekly Hypothyroidism 05523014 E03.9 On euthyrox 137mcgs dailyDoes well Get labs Anemia 371038107 D64.[address] Alvarenga Essential hypertension 37419677 I10 On coreg 6.25mg dailyOn HCTZ 12.5mg daily Does wellGet labsShe did see Dr Jasbir MARTINS Hyperlipidemia 27339808 E78.5 On ASAOn simvastati n 40mg daily Does well Get labs Chronic ob structive pulmonary disease 28062195 J44.9 Sees Joleen Gambino NPNow to get a in lab sleep study as per her history Hyperglycemia 54838757 R 73.9 On metformin 500mg po bidNeeds to diet and exerciseNe eds to do labs and see eye and foot Increased liver function 51557877 R94.5 US liver 12/27/21CT A/P 01/13/2022 CMP: LFTs WNL 04/18/2022 Should see GI hepatology , states that she did not do this the last time as she did not have the ride Hydroureter 11870827 N13 .4 S/p CT A/P 01/13/2022 Pulmonary emphysema 8743 3001 J43.9 Joleen Gambino [employer] 04/20/2022 , next apt 07/20/2022 Aneurysm o f thoracic aorta 598182183 I71.[address] Ferreira [facility], as per note 04/27/2022 , TAA is 4.2cm, f/u in 6 months [id number] Joleen Gambino, [facility] Pulmonolo gy [place] [address] [place] [address] 07/20/2022 10:52:59 07/20/2022 11:49:23 Obstructive sleep apnea syndrome 99803967 G47.33 In lab study with AHI 9, [...] effusions, noncalcifi ed pulmonaryn odules, or consolidat pedro infiltrate s. There is severe paraseptal andcentril [...] s for use, instructed on technique Hypoxia 102887973 R09.02 Per sleep studySix minute walk normalPAP as above Alpha-1-an titrypsin deficiency 34872233 E88.01 Alpha1 MZ with level of 83Extensiv [...] recheck in 6 months Secondary pulmonary hypertension 73188368 I27.21 PFT normalHypo ivan during in lab study and +OSATreatm ent as above Asthma 463731085 J45.90 9 PFT normalMeth acholine challenge positiveRA ST with several positivesI GE, IGGs, Quantifero n GOLD all normalDecl yenny maintenanc e medication [id number] Sanjuanita talamantes MD [facility] [place] [address] [place] [address] 08/17/2022 10:08:33 08/17/2022 10:55:17 Screening - NAD 818904278 Z13.9 C-scope: Dr Judith waterman 10/02/17: Next [...] of the above Vitamin D deficiency 347 49641 E55.9 Get on vit d weekly Hypothyroidism 67555920 E03.9 On euthyrox 137mcgs dailyDoes well Get labs Anemia 037694657 D64.[address] Alvarenga Essential hypertension 27773964 I10 On coreg 6.25mg dailyOn HCTZ 12.5mg daily Does wellGet labsShe did see Dr Jasbir MARTINS Hyperlipidemia 08712276 E78.5 On ASAOn simvastati n 40mg daily Does wellGet labs Chronic ob structive pulmonary disease 28034808 J44.9 Sees Joleen Gambino NPNow to get a in lab sleep study as per her history Hyperglycemia 98283995 R 73.9 On metformin 500mg po bidNeeds to diet and exerciseNe eds to do labs and see eye and foot MD Increased liver function 96484856 R94.5 US liver 12/27/21CT A/P 01/13/2022 CMP: LFTs WNL 04/18/2022 Should see GI hepatology , states that she did not do this the last time as she did not have the ride Hydroureter 52384649 N13 .4 S/p CT A/P 01/13/2022 Pulmonary emphysema 8743 3001 J43.9 Joleen Gambino [employer] Aneurysm o f thoracic aorta 157645080 I71.[address] Ferreira [facility], as per note 04/27/2022 , TAA is 4.2cm, f/u in 6 months Hypercalcemia 25803116 E 83.52 Will repeat the labs, declines any referrals, very mild corrected [id number] Joleen Gambino, F[employer]ING [employer]ACH[employer] OPERATOR- [facility] Pulmonolo gy [place] [address] [place] [address] 09/14/2022 10:06:30 09/14/2022 10:54:21 Obstructive sleep apnea syndrome 93240583 G47.33 In lab study with AHI 9, [...] 30 days use, PRN for concerns Asthma 453069188 J45.90 9 PFT normalMeth acholine challenge positiveRA ST with several positivesI GE, IGGs, Quantifero n GOLD all normalDecl yenny maintenanc e medication Alpha-1-an titrypsin deficiency 13235262 E88.01 Alpha1 MZ with level of 83Extensiv [...] level 84 - recheck in 6 months [id number] Joleen Gambino, FLAVORING MACHINE OPERATOR-[facility] Pulmonolo gy [place] [address] [place] [address] 11/08/2022 09:23:22 11/08/2022 11:09:57 Obstructive sleep apnea syndrome 50498491 G47.33 In lab study with AHI 9, [...] least 4 hours prior to bedtime. Asthma 812172825 J45.90 9 PFT 04/2022 normalMeth acholine challenge 05/[address] with several positivesI GE, IGGs, Quantifero n GOLD all normalDecl yenny maintenanc e medication Will send for symbicort for rescue use as per new guidelines Alpha-1-an titrypsin deficiency 10878826 E88.01 Alpha1 MZ with level of 83Extensiv [...] has been seen in MZ population s. [id number] Sanjuanita talamantes MD [facility] [place] [address] [facility] [place] [address] 11/23/2022 10:07:16 11/23/2022 11:43:21 Screening - NAD 039746995 Z13.9 C-scope: Dr Judith waterman 10/02/17: Next [...] of the above Vitamin D deficiency 347 60196 E55.9 Get on vit d weekly Hypothyroidism 10590234 E03.9 On euthyrox 137mcgs dailyDoes well Get labs Anemia 990619076 D64.9 Does well Did see Dr Alvarenga Essential hypertension 68447300 I10 On coreg 6.25mg dailyOn HCTZ 12.5mg daily Does wellGet labsShe did see Dr Ferreira [facility] Hyperlipidemia 04899511 E78.5 On ASAOn simvastati n 40mg daily Does wellGet labs Chronic ob structive pulmonary disease 72947345 J44.9 Sees Joleen Gambino NPNow to get a in lab sleep study as per her history Hyperglycemia 66878178 R 73.9 On metformin 500mg po bid Needs to diet and exerciseNe eds to do labs and see eye and foot Increased liver function 68170389 R94.5 US liver 12/27/21CT A/P 01/13/2022 CMP: LFTs WNL 04/18/2022 Should see GI hepatology , states that she did not do this the last time as she did not have the ride Hydroureter 41438557 N13 .4 S/p CT A/P 01/13/2022 Pulmonary emphysema 8743 3001 J43.9 Joleen Gambino [employer], 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 Aneurysm o f thoracic aorta 680944940 I71.[address] Ferreira [facility], as per note 04/27/2022 , TAA is 4.2cm, f/u in 6 months Hypercalcemia 74258456 E 83.[address] Duran, may need to see ENT also [id number] Sanjuanita talamantes MD [facility] [place] [address] [place] [address] 03/22/2023 09:38:27 03/22/2023 10:02:07 Screening - NAD 284436426 Z13.9 C-scope: Dr Judith waterman 10/02/17: Next [...] of the above Vitamin D deficiency 347 91907 E55.9 Repeat the vit d level Hypothyroidism 36140547 E03.9 On euthyrox 137mcgs dailyDoes well Get labs Anemia 976913809 D64.9 Does well Did see Dr Alvarenga Essential hypertension 63117733 I10 On coreg 6.25mg dailyOn HCTZ 12.5mg daily Does wellGet labsShe did see Dr Ferreira [facility] Hyperlipidemia 11074844 E78.5 On ASANot on simvastati n 40mg dailyOn atorvastat in 40mg daily Does wellGet labs Chronic ob structive pulmonary disease 71335775 J44.9 Seen Joleen Maki NPNow to get a in lab sleep study as per her history Hyperglycemia 94946682 R 73.9 On metformin 500mg po bid Needs to diet and exerciseNe eds to do labs and see eye and foot MD Increased liver function 78049826 R94.5 US liver 12/27/21CT A/P 01/13/2022 CMP: LFTs WNL 04/18/2022 Should see GI hepatology , states that she did not do this the last time as she did not have the ride Hydroureter 95892722 N13 .4 S/p CT A/P 01/13/2022 Pulmonary emphysema 8743 3001 J43.9 Joleen Maki [employer], 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 Aneurysm o f thoracic aorta 509001029 I71.[address] Ferreira [facility], as per note 04/27/2022 , TAA is 4.2cm, f/u in 6 months Hypercalcemia 53343800 E 83.52 NM parathyroi d scan 12/16/2022 Dr Duran, may need to see ENT also Screening mammography 24 075259 Z12.31 [id number] Sanjuanita talamantes MD [facility] [place] [address] [facility] [address] , [facility] [place] [address] 07/19/2023 10:24:43 07/19/2023 11:24:13 Adult health examination 078310244 Z00.00 Screening for disorder 762729468 Z13.9 Screening - NAD 68499532 3 Z13.9 C-scope: Dr Judith waterman 10/02/17: [...] of the above Vitamin D deficiency 347 71869 E55.9 Repeat the vit d level Hypothyroidism 80629166 E03.9 On levothyrox ine 137mcgs daily, will increase to 150mcgs daily as TSH is elevatedGe t US thyroidDoe s well Get labs Anemia 162311569 D64.9 Does wellGet [address]Did see [address] Alvarenga Essential hypertension 55618829 I10 On coreg 6.25mg dailyOn HCTZ 12.5mg daily Does wellGet labsShe did see Dr Ferreira [facility] Hyperlipidemia 46736601 E78.5 On ASANot on simvastati n 40mg dailyNot on atorvastat in 40mg dailyOn pitavastat in 2mg daily Does wellGet labs Chronic ob structive pulmonary disease 74359547 J44.9 Seen Joleen Gambino NPNow to get a in lab sleep study as per her history Hyperglycemia 89660531 R 73.9 On metformin 500mg po bid Needs to diet and exerciseNe eds to do labs and see eye and foot Increased liver function 95231392 R94.5 US liver 12/27/21CT A/P 01/13/2022 CMP: LFTs WNL 04/18/2022 Should see GI hepatology , states that she did not do this the last time as she did not have the ride Hydroureter 60356946 N13 .4 S/p CT A/P 01/13/2022 Pulmonary emphysema 8743 3001 J43.9 Joleen Gambino [employer], 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 Aneurysm o f thoracic aorta 912001308 I71.[address] Ferreira [facility], as per note 04/27/2022 , TAA is 4.2cm, f/u in 6 monthsDr Jasbir SLHV 03/21/2023 , f/u in 6 months Hypercalcemia 09345546 E 83.52 NM parathyroi d scan 12/16/2022 Dr Duran, may need to see ENT also Screening mammography 24 452877 Z12.31 Bleeding from nose [address] Bayron Morin ENT 03/16/2023 CTA neck 07/07/2023 [id number] Sanjuanita talamantes MD [facility] [place] [address] [facility] [place] [address] 10/23/2023 10:26:22 10/23/2023 11:30:01 Vitamin D deficiency 60396133 E55.9 Repeat the vit d level Screening - NAD 96631387 3 Z13.9 C-scope: Dr Judith waterman 10/02/17: [...] her understand ing of the above Hypothyroidism 87446130 E03.9 On levothyrox ine 150mcgs daily, renewed 10/23/2023 with UnithroidG et US thyroidDoe s well Get labs Anemia 857121545 D64.9 Does wellGet labsDid see Dr Alvarenga Essential hypertension 14525748 I10 On coreg 6.25mg dailyOn HCTZ 12.5mg daily Does wellGet labsShe did see Dr Jasbir CASIANO Hyperlipidemia 12642946 E78.5 On ASANot on simvastati n 40mg dailyNot on atorvastat in 40mg dailyNot on pitavastat in 2mg dailyOn zetia 10mg daily Does wellGet labs Chronic ob structive pulmonary disease 30123833 J44.9 Seen Joleen Gambino NPNow to get a in lab sleep study as per her history Hyperglycemia 72559839 R 73.9 On metformin 500mg po bid Needs to diet and exerciseNe eds to do labs and see eye and foot MD Increased liver function 57221796 R94.5 US liver 12/27/21CT A/P 01/13/2022 CMP: LFTs WNL 04/18/2022 Should see GI hepatology , states that she did not do this the last time as she did not have the rideReferr ed again 10/23/2023 Hydroureter 38530456 N13 .4 S/p CT A/P 01/13/2022 Pulmonary emphysema 8743 3001 J43.9 Joleen Gambino [employer], 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 Aneurysm o f thoracic aorta 397454280 I71.[address] Ferreira [facility], as per note 04/27/2022 , TAA is 4.2cm, f/u in 6 monthsDr Jasbir CASIANO 03/21/2023 , f/u in 6 months, is to get CT C/A/P on 10/30/2023 Hypercalcemia 97752860 E 83.52 NM parathyroi d scan 12/16/2022 Dr Duran, may need to see ENT also, low vit d, will need to discuss with nephrology about taking vit d, she also would like a referral to endocrine, as her nephrologi st told her she need to see an endocrine MD, referred to Dr Villegas Bleeding from nose [address] Bayron Morin ENT 03/16/2023 CTA neck 07/07/2023 Pain of ri ght hip joint 9714109445 62159 M25.551 States that she would like to get a referral to Dr Mehta ortho as her preferred ortho as she her lab phlebotomi st went to him Moderate r ecurrent major depression 65973063 F33.1 Feels overwhelme d with her medical issues, also has to take care of her sister who has had surgery, not suicidal or homicidalW illing to start on sertraline , all side effects explained to her [id number] Amparo Tolentino, FLAVORING MACHINE OPERATOR-[facility] [place] [address] [place] [address] 05/21/2024 08:39:53 05/21/2024 09:43:17 [id number] Sanjuanita talamantes MD [facility] Primary [facility] [place] [address] [place] [address] 05/29/2024 11:13:27 05/29/2024 12:32:57 Vitamin D deficiency 44889495 E55.9 Repeat the vit d level Screening - NAD 91194156 3 Z13.9 C-scope: Dr Judith waterman 10/02/17: [...] her understand ing of the above Hypothyroidism 50182091 E03.9 On levothyrox ine 150mcgs daily, renewed 10/23/2023 with UnithroidU S thyroid 05/06/2024 Does well Get labs Anemia 783314116 D64.[address]Did see Dr Alvarenga 05/15/2024 , next in 2 monthsIs to get an infusion this Monday05/31/2024 Essential hypertension 11593694 I10 On Coreg 6.25mg dailyOn HCTZ 12.5mg daily Does wellGet labsShe did see Dr Jasbir CASIANO Hyperlipidemia 45809526 E78.5 On ASANot on simvastati n 40mg dailyNot on atorvastat in 40mg dailyNot on pitavastat in 2mg dailyOn zetia 10mg daily Does wellGet labs Chronic ob structive pulmonary disease 64282338 J44.9 Seen Joleen Gambino NPNow to get a in lab sleep study as per her history Hyperglycemia 50104294 R 73.9 On metformin 500mg po bid Needs to diet and exerciseNe eds to do labs and see eye and foot MD Increased liver function 44685326 R94.5 US liver 12/27/21CT A/P 01/13/2022 CMP: LFTs WNL 04/18/2022 Should see GI hepatology , states that she did not do this the last time as she did not have the rideReferr ed again 10/23/2023 Hydroureter 18675754 N13 .4 S/p CT A/P 01/13/2022 Pulmonary emphysema 8743 3001 J43.9 Joleen Gambino [employer], 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 Aneurysm o f thoracic aorta 886942529 I71.[address] Jasbir CASIANO, as per note 04/27/2022 , TAA is 4.2cm, f/u in 6 monthsDr Jasbir CASIANO 03/21/2023 , f/u in 6 months, is to get CT C/A/P on 10/30/2023 Hypercalcemia 47051201 E 83.52 NM parathyroi d scan 12/16/2022 Dr Duran, may need to see ENT also, low vit d, will need to discuss with nephrology about taking vit d, she also would like a referral to endocrine, as her nephrologi st told her she need to see an endocrine MD, referred to Dr Villegas Again referred 05/29/2024 Bleeding from nose [address] Bayron Moirn ENT 03/16/2023 CTA neck 07/07/2023 Pain of ri ght hip joint 5591196770 49821 M25.551 S/p surgery Dr Garcia/u visit 04/22/2024 and next in one year Moderate r ecurrent major depression 19538047 F33.1 Feels overwhelme d with her medical issues, also has to take care of her sister who has had surgery, not suicidal or homicidalO n sertraline , all side effects explained to her Screening mammography 24 539238 Z12.31 Postmenopausal state 764 16987 Z78.0 [id number] Sanjuanita talamantes MD [facility] Primary Care [facility] [place] [address] [place] [address] 09/10/2024 08:53:20 09/10/2024 09:09:09 [id number] Sanjuanita talamantes MD [facility] [place] [facility] [place] [address] [place] [address] 09/18/2024 10:49:07 09/18/2024 12:07:36 Vitamin D deficiency 22752377 E55.9 Repeat the vit d level Screening - NAD 47958062 3 Z13.9 C-scope: Dr Judith waterman 10/02/17: [...] her understand ing of the above Hypothyroidism 73620432 E03.9 On levothyrox ine 150mcgs daily, renewed 10/23/2023 with UnithroidU S thyroid 05/06/2024 Does well Get labs Anemia 136971113 D64.9 Does wellGet labsDid see Dr Alvarenga 07/18/2024 , next in 3 months Essential hypertension 09919168 I10 On Coreg 6.25mg dailyNot taking the HCTZ 12.5mg daily Does wellGet labsDoes need to see Dr Jasbir CASIANO Hyperlipidemia 73669936 E78.5 On ASANot on simvastati n 40mg dailyNot on atorvastat in 40mg dailyNot on pitavastat in 2mg dailyOn zetia 10mg daily Does wellHas been eating more carbs,more diet and exerciseGe t labs Chronic ob structive pulmonary disease 15806654 J44.9 Seen Joleen Gambino NPNow to get a in lab sleep study as per her historyNow wants to see pulm in [place], referred 09/18/2024 Hyperglycemia 93721316 R 73.9 On metformin 500mg po bid Needs to diet and exerciseNe eds to do labs and see eye and foot Increased liver function 04634989 R94.5 US liver 12/27/21CT A/P 01/13/2022 CMP: LFTs WNL 04/18/2022 Should see GI hepatology , states that she did not do this the last time as she did not have the rideReferr ed again 10/23/2023 Hydroureter 22759540 N13 .4 S/p CT A/P 01/13/2022 Aneurysm o f thoracic aorta [id number] I71.[address] Jasbir MARTINS, as per note 04/27/2022 , TAA is 4.2cm, f/u in 6 monthsDr Jasbir CASIANO 03/21/2023 , f/u in 6 months, is to get CT C/A/P on 10/30/2023 OV 09/18/2024 :Now will see Dr Jasbir CASIANO Hypercalcemia 59801579 E 83.52 NM parathyroi d scan 12/16/2022 [...] 3 months, referred 09/18/2024 Bleeding from nose [address] Bayron Morin ENT 03/16/2023 CTA neck 07/07/2023 Pain of ri ght hip joint [id number] 84840 M25.551 S/p surgery Dr MehtaF/u visit 04/22/2024 and next in one year Moderate r ecurrent major depression [id number] F33.1 Feels overwhelme d with her medical issues, also has to take care of her sister who has had surgery, not suicidal or homicidalO n sertraline , all side effects explained to her OV 09/18/2024 :Now will increase sertraline 50mg dailyAll side effects explainedN ot suicidal or homicidalD eclines any referral for psychiatry [id number] Freddie Power MD [facility] [place] [address] [place] [address] 10/01/2024 11:15:33 10/08/2024 08:56:11 Asthma [id number] J45.909 PFT 04/2022 normalMeth acholine challenge 05/2022 [...] on high allergy months to help-she declines loading inspector. Alpha-1-an titrypsin deficiency 21712724 E88.01 Alpha1 MZ with level of 83Extensiv [...] been seen in [facility]Z population s. Ex-smoker [id number] Z87.[id number] chest next visit (declines to do right now)-wants to wait till then-last Ct chest/pelv is/abd in 10/2023 with emphysema changes History of respiratory disease 515881673 Z86.69 [id number] Notes she uses daily-note s she does not need a follow-up for this today but will call when she is due. [id number] Sanjuanita talamantes MD [facility] [place] [address] [place] [address] 12/23/2024 08:31:16 12/23/2024 08:50:14 [id number] Sanjuanita talamantes MD [facility] [place] [address] [place] [address] 12/25/2024 14:04:23 12/25/2024 14:34:27 Vitamin D deficiency 72926210 E55.9 Repeat the vit d level Screening - NAD [id number] 3 Z13.9 C-scope: Dr Judith waterman 10/02/17: [...] her understand ing of the above Hypothyroidism 84635462 E03.9 On levothyrox ine 150mcgs daily, renewed 10/23/2023 with UnithroidU S thyroid 05/06/2024 Does well Get labs Anemia 646528425 D64.9 Does wellGet labsDid see Dr Alvarenga 07/18/2024 , next in 3 months Essential hypertension 50400036 I10 On Coreg 6.25mg dailyNot taking the HCTZ 12.5mg daily Does wellGet labsDoes need to see Dr Jasbir CASIANO Hyperlipidemia 60175437 E78.5 On ASANot on simvastati n 40mg dailyNot on atorvastat in 40mg dailyNot on pitavastat in 2mg dailyState s that she does not tolerate any statinsOn zetia 10mg dailyGet on repathaCT angio 10/30/2023 does show plaque Does wellHas been eating more carbs, more diet and exerciseGe t labs Chronic ob structive pulmonary disease 97581672 J44.9 Seen Joleen Gambino NPNow to get a in lab sleep study as per her historyNow wants to see pulm in [place], referred 09/18/2024 Vonda Carolina [employer] 10/01/2024 , next apt 04/01/2025 Hyperglycemia 10618131 R 73.9 On metformin 500mg po bid Needs to diet and exerciseNe eds to do labs and see eye and foot Increased liver function 02256557 R94.5 US liver 12/27/21CT A/P 01/13/2022 CMP: LFTs WNL 04/18/2022 Should see GI hepatology , states that she did not do this the last time as she did not have the rideReferr ed again 10/23/2023 Hydroureter [id number] N13 .4 S/p CT A/P 01/13/2022 Aneurysm o f thoracic aorta 305313600 I71.[address] Ferreira [facility], as per note 04/27/2022 , TAA is 4.2cm, f/u in 6 monthsDr Jasbir CASIANO 03/21/2023 , f/u in 6 months, is to get CT C/A/P on 10/30/2023 OV 09/18/2024 :Now will see Dr Ferreira [facility] Dr Ferreira [facility] 09/24/2024 , next in 6 months Hypercalcemia 28819827 E 83.52 NM parathyroi d scan 12/16/2022 Dr Duran, may need to see ENT also, low vit d, will need to discuss with nephrology about taking vit d, she also would like a referral to endocrine, as her nephrologi st told her she need to see an endocrine MD, referred to Dr Mi Villegas 04/30/2024 , f/u in 3 months, referred 09/18/2024 , was told to stop HCTZ then Bleeding from nose [address] Bayron Morin ENT 03/16/2023 CTA neck 07/07/2023 Pain of ri ght hip joint [id number] 92364 M25.551 S/p surgery Dr Garcia/u visit 04/22/2024 and next in one year Moderate r ecurrent major depression 84526991 F33.1 Feels overwhelme d with her medical issues, also has to take care of her sister who has had surgery, not suicidal or homicidalO n sertraline , all side effects explained to her OV 09/18/2024 :Now will increase sertraline 50mg dailyAll side effects explainedN ot suicidal or homicidalD eclines any referral for psychiatry OV 12/25/2024 :On sertraline 50mg dailyDoes well nowNot suicidal or homicidal Health Concerns Section Related Observation LastModified by Organization Detai ls LastModified Time None Recorded Concern Status LastModified by Organization Details LastModified Time None Recorded Advance Directives Directive N: Information provided Payers Insurance Date Sequence Insurance Name Policy Number Policy Alberto Covered Member ID Alberto Member ID Guarantor Name 12/22/2024 1 [place] Jory Mahi Caraballoronnie [id number] Jory Mahi Caitlin 12/20/2024 2 [place] Jory Mahi Caitlin [id number] Jory Mahi Caitlin 12/22/2024 [employer] - DMEPOS ASSIGNED (MEDICARE [facility]) Jory Mahi Caitlin [id number] Jory Mart 12/20/2024 [employer] - DMEPOS ASSIGNED (MEDICARE DME REG[facility] B) Jory Mart [id number] Jory Mart 12/22/2024 2 [place] WHEN MED[place]ARE OR MEDICARE REPLACEMENT PRIMARY) Jory Mart [id number] Jory Mart Notes Date Note Type Note Provider Name and Address Organization Details Recorded Time 09/18/2024 text/html 02/20/17Here to establish carePMD: [facility] '[facility] ago'Past [...] she was seen by Dr Vazquez a marine diver and was told to do a 'cath'She [...] doing well, she did do the labs OV 09/18/2024: Here for her f/u apt she feels well but has noted some anxiety, not suicidal or homicidal Sanjuanita Bach MD [address] [place] [address], [facility] [address], [place], [address], [place] [facility] [place] [facility] [employer] 09/18/2024 14:08:29 10/01/2024 text/html AsthmaReported b y PatientHPIFor quality, patient reportswell-controlle d. For severity, patient reportsno decrease in activities of daily livingandimproving. For timing, patient reportsinfrequent. For context, patient reportsallergic rhinitis. For aggravating factors, patient reportschanges in weatherandpollen. For alleviating factors, patient reportsnone. For associated symptoms, patient reportsno fever,no fatigue,no cough,no anorexia,no dyspnea,no wheeze,no tachypnea,no retractions, andno sleep disturbance.she was a patient of prior [employer] in this practice-review of her notes shows [...] nose.ROS as noted in the HPI Ms Caitlin presents today to follow up on abnormal [...] also worries significantly during the day Vonda Carolina, [facility] [address] [facility], [place], [address], [place] - [facility] [employer] [facility] [employer] 10/02/2024 09:22:48 12/25/2024 text/html 02/20/17Here to establish carePMD: In [facility], last apt was a 'long ago'Past [...] she was seen by Dr Vazquez a marine diver and was told to do a 'cath'She [...] doing well, she did do the labs OV 09/18/2024: Here for her f/u apt she feels well but has noted some anxiety, not suicidal or homicidal OV 12/25/2024: Here for her f/u apt, she is doing well today, she did do the labs Sanjuanita Bach MD [address], [place], [address], [place] [facility] [place] [facility] 12/25/2024 14:35:48 OBGyn Episode No OBEpisode recorded.
--- OUTSIDE RECORDS SUMMARY | 2024-12-27 09:30 | XMS_ITS | Clinical Summary ---
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 Gender Identity Not on file Sexual Orientation [...] 11/10/2021 1:35 PM CDT Plan of Treatment Health Maintenance Due Date Last Done Comments DIABETES ANNUAL FOOT EXAM 1963 DIABETES ANNUAL RETINAL EXAM 1963 DIABETES MICROALBUMIN ANNUAL SCREEN 1963 LDL CHOLESTEROL ANNUAL 1963 Lung Cancer Screening 1995 ZOSTER VACCINE (1 of 2) 1995 RSV VACCINE (60+ or ) (1 - 1-dose 75+ series) 02/29/2020 DTAP/TDAP/TD VACCINES (2 - T d or Tdap) 10/15/2022 10/15/2012 INFLUENZA VACCINE (#1) 2024 3, 01/05/2022, 01/18/2021, Additional history exists COVID-19 Vaccine (6 - 2024-2 6 season) 2024 02/23/2021, 04/27/2020, 04/25/2020, Additional history exists DIABETES HBA1C Q 6 MONTHS 11/20/20242024, 01/01/2024, 10/16/2023, Additional history exists OSTEOPOROSIS SCREENING 05/10/2027 3, 05/09/2022, 09/18/2019, Additional history exists PNEUMOCOCCAL VACCINE [...] [place] MEDICA[place] Care Teams Senior Mainframe Programmer Analyst Relationship Specialty Start Date End Date David Bach MD PCP - General Internal Medicine 01/15/18
--- OUTSIDE RECORDS SUMMARY | 2024-12-27 09:30 | XMS_ITS | Continuity of Care Document ---
Author Organization [facility] [employer] GROUP [facility], [facility] Primary Care [place] Address [address] [facility] [address] [place] [address] Care Team Providers Care Bicycle Messenger Name Role Phone DAVID BACH Primary Care Provider SYMONE FERREIRA Grinder GIOVANNI VILLEGAS Hub Inventory Specialist [phone] Assessment Encounter Date Assessment Date Assessment LastModified by Organization Details LastModified Time 12/25/2024 12/25/2024 04/18/2022: A1C 6.2H Urine alb [...] 209, TG 171, LDL 135 HGB 13.1 Not available 12/25/2024 08:47:59 Plan of Treatment Reminders Order Date Submit Date Provider Last Modified By Organization Details Last Modified Time Details Appointments Any 15 2025 11:00A M Vonda Carolina NP Not available Not available Not available Any 15 2025 02:00P Aurelia freitas MD Not available Not available Not available Lab glycohemo globin, total, blood [address] (Lab), [address] [place], [address], 12/25/2024 14:33:39 microalbu min, urine [address] (Lab), [address] [place], [address], 12/25/2024 14:33:46 vitamin D, 25-hydrox y, total, serum [address] (Lab), [address] [place], [address], 12/25/2024 14:33:37 lipid panel, serum [address] (Lab), [address] [place], [address], 12/25/2024 14:33:44 CMP, serum or plasma [address] (Lab), [address] [place], [address], 12/25/2024 14:33:34 CBC w/ auto diff [address] (Lab), [address] [place], [address], 12/25/2024 14:33:48 TSH, serum or plasma [email or web address] (Lab), [address] [facility] [place], [address], 12/25/2024 14:33:29 Referral podiatris t referral - Please call pt to schedule appt. Thank you 2024 025 [email or web address] Bharath Hoang DPM, [address], [place], [address], 12/26/2024 11:06:34 endocrino logy referral - Please call patient to schedule an appointme nt. Thank you. 2024 025 [email or web address] Giovanni Villegas MD, [address], [place], [address], 12/26/2024 11:06:53 cardiolog ist referral - Please call patient to schedule an appointme nt. Thank you. 2024 025 [email or web address] [place], [address] [facility], [address], [address], 12/26/2024 11:06:53 gastroent erologist referral - Please call pt to schedule appointme nt. Thank you 2024 025 [email or web address] Tim Sainz MD, [address] [facility], [facility] [address], [place], [address], 12/26/2024 11:06:33 Procedures None recorded. Surgeries None recorded. Imaging None recorded. Medication Orders Repatha SureClick 140 mg/mL subcutane ous pen injector 2024 025 [facility], [address], [place], [address], 12/25/2024 14:33:33 Patient TargetsNo targets recorded. Patient Instructions Encounter Date Encounter Id Patient Instructions Last Modified By Organization Details Last Modified Time 12/25/2024 [id number] diabetic eye exam* gerri Not available 12/25/2024 14:33:23 Reason for Referral Tactical/Mobile Watch Officer Referral for Increased liver function Please call pt to schedule appointment. Thank you Referring Physician: David Bach Internal Medicine, Encounter Date: 12/25/2024 Civil Structural Engineer Referral for Hype rglycemia Please call pt to schedule appt. Thank you Referring Physician: David Bach Internal Medicine, Encounter Date: 12/25/2024 Grinder Referral for Es sential hypertension Please call patient to schedule an appointment. Thank you. Referring Physician: David Bach Internal Medicine, Encounter Date: 12/25/2024 Endocrinology Referral for H ypercalcemia Please call patient to schedule an appointment. Thank you. Referring Physician: David Bach Internal Medicine, Encounter Date: 12/25/2024 Problems Name Problem SNOMED Code Status Onset Date Resolution Date Notes Provider Name and Address Organization Details Recorded Time Pain of hip region 84364114 Active Not Available [facility] 3 08:15:39 Hypolipid emia 240779008 Completed 201702/20/2017 Not Available [facility] 3 06:02:36 Iron deficienc y 56489685 Active 2017 Not Available [facility] 3 08:15:39 Hypertens pedro disorder 61520591 Active 2017 Not Available [facility] 3 08:15:39 Hypothyro idism 05698316 Active 2017 Not Available [facility] 3 08:15:39 Hyperlipi demia 59640802 Active 2017 Not Available [facility] 3 08:15:39 Vertigo 971485705 Active 2021 Not Available [facility] 3 08:15:39 Vitamin D deficienc y 86315989 Active 2021 Not Available [facility] 3 08:15:39 Liver enzymes level above reference range 777919073 Active 2021 Not Available [facility] 3 08:15:39 Chronic kidney disease 727566083 Active 2021 Not Available [facility] 3 08:15:39 Hyperglyc emia 18078077 Active 2021 Not Available [facility] 3 08:15:39 Hydrouret er 78697114 Active 2021 Not Available [facility] 3 08:15:39 COVID-19 412383632 Active 2021 Not Available [facility] 3 08:15:39 Non-alcoh olic fatty liver 286803980 Active 2021 Not Available [facility] 3 08:15:39 Aneurysm of thoracic aorta 956400840 Active 2021 Not Available [facility] 3 08:15:39 Pulmonary emphysema 86374579 Active 2021 Not Available [facility] 3 08:15:39 Dyspnea on exertion 83284676 Active 2022 Not Available [facility] 3 08:15:39 Sleep apnea 06700342 Active 2022 Not Available [facility] 3 08:15:39 Obstructi ve sleep apnea syndrome 08196032 Active 2022 Not Available [facility] 3 08:15:39 Secondary pulmonary hypertens ion 27196082 Active 2022 Not Available [facility] 3 08:15:39 Hypoxia 157152911 Active 2022 Not Available [facility] 3 08:15:39 Alpha-1-a ntitrypsi n deficienc y 00617505 Active 2022 Not Available [facility] 3 08:15:39 Anemia 124431163 Active 2022 Not Available [facility] 3 08:15:39 Essential hypertens ion 16439359 Active 2022 Not Available [facility] 3 08:15:39 Chronic obstructi ve pulmonary disease 47402285 Active 2022 Not Available [facility] 3 08:15:39 Skin lesion 03616869 Active 2022 Not Available [facility] 3 08:15:39 Increased liver function 37910288 Active 2022 Not Available [facility] 3 08:15:39 Type 2 diabetes mellitus without complicat ion 755633485 Active 2022 Not Available [facility] 3 08:15:39 Asthma 019094737 Active 2022 Not Available [facility] 3 08:15:39 Hypercalc emia 01719809 Active 2022 Not Available [facility] 3 08:15:39 Cobalamin deficienc y 828329838 Active 2022 Lashon Jacobson null, [facility] 3 15:52:24 Bleeding from nose 276201812 Active 2023 David talamantes MD [address], [facility] [address], [place], [address] , [facility] 4 10:53:56 Pain of right hip joint 78677312962 9102 Active 2023 David talamantes MD [address], [facility] [address], [place], [address] , [facility] 4 11:25:29 Moderate recurrent major depressio n 51223315 Active 2023 David talamantes MD [address], [address], [place], [address] , [facility] 4 11:26:04 Diabetes mellitus 16660566 Active 2024 Wilma Benites MA nullClavister 13:27:40 Notes:[facility] home sleep study 03/15/22 AHI = 4 [facility] diagnostic sleep study 06/29/22 AHI = 9, [...] replacement of hip completed Brandi Gifford MA [employer] 05/29/2024 11:36:27 07/19/19 24 Medicare Wellness CPT Code, subsequent completed Deven Stacy LPN [employer] 07/17/2023 18:32:38 07/19/19 24 Advanced Care Planning completed Deven Stacy LPN [employer] 07/19/2023 11:12:06 04/28/19 23 Medicare Wellness CPT Code, subsequent completed Adele [place] RN [email or web address] [facility] [employer] [facility] [employer] 04/27/2022 11:20:50 04/28/19 23 Advanced Care Planning completed Adele Valencia RN [employer] [facility] [employer] 04/27/2022 11:23:21 01/01/20 20 excision of skin carcinoma completed Not Available [facility] 04/06/2022 05:56:38 10/22/19 17 Ther radiology tx plng smpl completed Not Available [facility] 04/06/2022 05:56:38 09/18/19 13 Stent placemt retro carotid completed Not Available [facility] 04/06/2022 05:56:38 02/17/19 11 Cholecystectomy completed Not Available [facility] 04/06/2022 05:56:38 Nipple/areola reconstruction completed Not Available [facility] 04/06/2022 05:56:38 excision of skin carcinoma completed Not Available [facility] 04/06/2022 05:56:38 Skin Graft completed Not Available [facility] 04/06/2022 05:56:38 Colonoscopy completed Not Available [facility] 04/06/2022 05:56:38 Hysterectomy completed Not Available [facility] 04/06/2022 05:56:38 Appendectomy completed Not Available [facility] 04/06/2022 05:56:38 EGD completed Not Available [facility] 04/06/2022 05:56:38 Imaging Results None recorded. Procedure Notes None recorded. Medical Equipment None Reported. Allergies Allergen ID Allergen Name Allergen Category Reaction Reaction Severity Criticality Documentation Date Start Date Code Code System Note Provider Name and Address Organization Details Recorded Time 95654 Non-stero idal anti-infl ammatory agent (substanc e) medicatio n nausea severe Not available 04/06/2022 [address] [facility] 3 06:09:23 51183 Demerol medicatio n hallucina tions Not available Not available 04/06/2022 [address] [facility] 3 06:09:23 90250 codeine medicatio n itching Not available Not available 04/06/[address] [facility] 3 06:09:23 09257 ibuprofen medicatio n Not available Not available high 12/20/20242021 5640 RxNorm Not Available lewis [employer] - prod 5 08:39:28 94388 meperidin e medicatio n hallucina tions Not available low 12/20/20242017 6754 RxNorm Not Available marco [facility] [employer] - prod 5 08:39:28 19590 morphine medicatio n itching Not available low 12/20/20242019 7052 RxNorm Not Available lewis [employer] External Data [employer] - prod 5 08:39:28 70826 Pethidine analog (substanc e) medicatio n Not available Not available Not available 12/20/20242023 32232 0004 SNOMED unrec ogniz ed react ion (text : Unkno wn, code: [id number]) (from exter nal sourc e) Not Available marco [facility] - External [employer] - prod 5 08:39:42 Medications [...] atin. Valid: 05/02/23 until futher notice. KOBI# [id number] 335. Not Available Not Available Not Available [...] Updated DateTime 5 157.48 cm 35.9 kg/m2 54596.9 g 98.1 [degF] 84 /min 90 % 0 134/86 mm[Hg] Brandi Gifford MA [place] [facility] [place] [facility] 5 14:11:27 Social History Question Answer Notes LastModified by Organization Details LastModified Time Tobacco Smoking Status Former Smoker Not Available [facility] 04/06/2022 05:54:10 Do You Have An Advance Directive? No Information Provided [email or web address] Information not available 04/27/2022 Are You Blind Or Do You Have Difficulty Seeing? No MIGRATION.169 [id number] Information not available 04/06/2022 Is Blood Transfusion Acceptable In An Emergency? Yes [email or web address] Information not available 07/19/2023 What Is Your Level Of Caffeine Consumption? Moderate MIGRATION.493 4958746 Information not available 04/06/2022 In The 14 Days Before Symptom Onset, Have You Had Close Contact With A Laboratory-conf irmed COVID-19 While That Case Was Ill? No MIGRATION.314 4417700 Information not available 04/06/2022 In The 14 Days Before Symptom Onset, Have You Had Close Contact With A Person Who Is Under Investigation For COVID-19 While That Person Was Ill? No MIGRATION.115 5012929 Information not available 04/06/2022 Are You Deaf Or Do You Have Serious Difficulty Hearing? No MIGRATION.506 1108704 Information not available 04/06/2022 What Type Of Diet Are You Following? DIABETIC Information not available 04/27/2022 What Is The Highest Grade Or Level Of School You Have Completed Or The Highest Degree You Have Received? [id number] MIGRATION.975 [id number] Information not available 04/06/2022 Have There Been Any Changes To Your Family Or Social Situation? No MIGRATION.226 9326971 Information not available 04/06/2022 What Is The Fluoride Status Of Your Home? Fluoridated MIGRATION.971 3785031 Information not available 04/06/2022 When Did You Quit Smoking? 1-5yearssincelastc igarette 03/09/21 MIGRATION.139 6161812 Information not available 04/06/2022 Are There Any Guns Present In Your Home? No MIGRATION.626 9414868 Information not available 04/06/2022 Do You Use Insect Repellent Routinely? No MIGRATION.056 4755488 Information not available 04/06/2022 Where Do You Live? SingleLevelHouse MIGRATION.492 9861490 Information not available 04/06/2022 Presence Of Domestic [...] Do You Have A Medical Power Of Special Agent Secret Service? No MIGRATION.268 2366348 Information not available 04/06/2022 What Was The Date Of Your Most Recent Tobacco Screening? 12/25/2024 [email or web address] Information not available 12/25/2024 Do You Have Any Pets? No MIGRATION.009 3832861 Information not available 04/06/2022 What Is Your Relationship Status? MIGRATION.511 1173423 Information not available 04/06/2022 Do You Use Your Seat Belt Or Car Seat Routinely? Yes MIGRATION.456 9677282 Information not available 04/06/2022 Do You Have Smoke And Carbon Monoxide Detectors In Your Home? Yes MIGRATION.212 5000382 Information not available 04/06/2022 At What Age Did You Start Smoking Tobacco? 26 MIGRATION.275 8877643 Information not available 04/06/2022 Are You Passively Exposed To Smoke? No MIGRATION.579 6160952 Information not available 04/06/2022 Are There Any Smokers In Your House? No MIGRATION.639 8830868 Information not available 04/06/2022 Do You Use Sunscreen Routinely? No MIGRATION.583 6248633 Information not available 04/06/2022 Has Tobacco Cessation Counseling Been Provided? No MIGRATION.744 9655506 Information not available 04/06/2022 How Many Years Have You Smoked Tobacco? 50 MIGRATION.798 5289513 Information not available 04/06/2022 Have You Recently Traveled Abroad? No MIGRATION.571 2641370 Information not available 04/06/2022 Do You Have Difficulty Walking Or Climbing Stairs? Yes MIGRATION.249 0691272 Information not available 04/06/2022 Do You Have Any Dietary Restrictions? No MIGRATION.679 2046886 Information not available 04/06/2022 Sex: Female Functional Status Question Answer Note LastModified by [employer] Details LastModified Time Do you use any illicit or recreational drugs? No MIGRATION.903714 0869 Information not available 04/06/2022 Do you or have you ever used any other forms of tobacco or nicotine? No MIGRATION.290531 6762 Information not available 04/06/2022 What is your level of alcohol consumption? None MIGRATION.007099 6638 Information not available 04/06/2022 Are you currently employed? No Retired [email or web address] Information not available 07/19/2023 Do you have transportation difficulties? No MIGRATION.042628 8542 Information not available 04/06/2022 Are you able to walk independently without assistance or assistive devices? YESWOREST MIGRATION.371690 7016 Information not available 04/06/2022 Do you have difficulty doing errands alone? No MIGRATION.704078 7046 Information not available 04/06/2022 Are you able to care for yourself independently? Yes MIGRATION.695271 8326 Information not available 04/06/2022 Do you have difficulty dressing, bathing, grooming, or toileting? No MIGRATION.044780 9926 Information not available 04/06/2022 What is your exercise level? None MIGRATION.180961 6518 Information not available 04/06/2022 Mental Status Question Answer Note LastModified by [employer] Details LastModified Time Do you feel stressed (tense, restless, nervous, or anxious, or unable to sleep at night)? VP42531-2 MIGRATION.36521022 26 Information not available 04/06/2022 Do you have difficulty concentrating, remembering or making decisions? No MIGRATION.41511694 26 Information not available 04/06/2022 Family History Relationship Description Onset Age of this Age Resolved Age Notes LastModified by Organization Details LastModified Time Brother Aneurysm MIGRATION.795 [id number] Not available 04/06/2022 05:56:39 Brother Carcinoma of prostate MIGRATION.334 [id number] Not available 04/06/2022 05:56:39 Father Carcinoma of prostate MIGRATION.476 4798175 Not available 04/06/2022 05:56:39 Sister Hodgkin's disease (clinical) MIGRATION.860 8961862 Not available 04/06/2022 05:56:39 Mother Well adult MIGRATION.702 0897652 Not available 04/06/2022 05:56:40 Medical History Condition [...] quadrivalent, PF 3 completed WINSTON BarreraA null, [facility] 12/01/2022 15:53:55 Influenza, high-dose, quadrivalent, PF 0 completed Rain Gill RMA null, [facility] 09/21/2023 15:05:54 COVID-19, mRNA, LNP-S, PF, 30 mcg/0.3 mL dose 1 completed Rain Gill RMA null, [facility] 09/21/2023 15:05:54 COVID-19, mRNA, LNP-S, PF, 30 mcg/0.3 mL dose 1 completed Rain Gill RMA null, [facility] 09/21/2023 15:05:54 COVID-19, mRNA, LNP-S, PF, 30 mcg/0.3 mL dose, talia-sucrose 2 completed Rain Gill RMA null, [facility] 09/21/2023 15:05:54 pneumococcal polysaccharide PPV23 6 completed Rain Gill RMA null, [facility] 09/21/2023 15:05:54 Tdap 3 completed Rain Gill RMA xin, [facility] 09/21/2023 15:05:54 Influenza, high-dose, trivalent, PF 6 completed Rain Gill RMA null, [facility] 09/21/2023 15:05:54 Influenza, high-dose, trivalent, PF 9 completed Rain Gill RMA null, [facility] 09/21/2023 15:05:54 Influenza, high-dose, trivalent, PF 8 completed Rain Gill RMA null, [facility] 09/21/2023 15:05:54 Influenza, high-dose, trivalent, PF 7 completed Rain Gill RMA xin, [facility] 09/21/2023 15:05:54 Influenza, split virus, trivalent, preservative 3 completed Rain Gill RMA null, [facility] 09/21/2023 15:05:54 Influenza, split virus, trivalent, preservative 5 completed Rain Gill RMA null, [facility] 09/21/2023 15:05:54 Influenza, split virus, quadrivalent, PF 1 completed MALIKA Wilkins, [facility] 09/21/2023 15:05:54 RSV, recombinant, protein subunit RSVpreF, adjuvant reconstituted, 0.5 mL, PF 4 completed MALIKA Wilkins, [facility] 09/21/2023 15:06:18 COVID-19, mRNA, LNP-S, PF, 100 mcg/0.5mL dose or 50 mcg/0.25mL dose 1 completed MALIKA Wilkins, [facility] 09/21/2023 15:05:54 COVID-19, mRNA, LNP-S, PF, 100 mcg/0.5mL dose or 50 mcg/0.25mL dose 1 completed Rain Gill RMA xin, [facility] 09/21/2023 15:05:54 Influenza, high-dose, trivalent, PF 9 completed Rain Glil RMA null, [facility] 09/21/2023 15:05:54 influenza, unspecified formulation 8 completed Not Available [facility] 08/22/2022 08:15:40 Influenza, high-dose, quadrivalent, PF 1 completed Rain Gill RMA null, [facility] 09/21/2023 15:05:54 Influenza, high-dose, trivalent, PF 0 completed Rain Gill, RMMahi null, [place] [facility] [employer] [facility] 09/21/2023 15:05:54 influenza, unspecified formulation [address] [facility] 08/22/2022 08:15:40 pneumococcal polysaccharide PPV23 7 completed Not Available [facility] 08/22/2022 08:15:40 Pneumococcal conjugate PCV 13 6 completed Not Available [facility] 08/22/2022 08:15:40 Influenza, high-dose, quadrivalent, PF 2 completed Not Available [facility] 08/22/2022 08:15:40 Past Encounters Encounter ID Performer Location Encounter Start Date Encounter Closed Date Diagnosis/Indication Diagnosis SNOMED-CT Code Diagnosis ICD10 Code Diagnosis IMO Codes Diagnosis Note [id number] David talamantes MD [facility] Primary Care [address] [place] [address] 12/23/2024 08:31:16 12/23/2024 08:50:14 [id number] David talamantes MD [facility] Care [address] [place] [address] 12/25/2024 14:04:23 12/25/2024 14:34:27 Vitamin D deficiency 85814728 E55.9 Repeat the vit d level Screening - [facility] 36152121 3 Z13.9 C-scope: Dr Judith waterman 10/02/17: [...] her understand ing of the above Hypothyroidism 71696568 E03.9 On levothyrox ine 150mcgs daily, renewed 10/23/2023 with UnithroidU S thyroid 05/06/2024 Does well Get labs Anemia 994190855 D64.[address] Alvarenga 07/18/2024 , next in 3 months Essential hypertension 77922954 I10 On Coreg 6.25mg dailyNot taking the HCTZ 12.5mg daily Does wellGet labsDoes need to see Dr Ferreira [facility] Hyperlipidemia 58809850 E78.5 On ASANot on simvastati n 40mg dailyNot on atorvastat in 40mg dailyNot on pitavastat in 2mg dailyState s that she does not tolerate any statinsOn zetia 10mg dailyGet on repathaCT angio 10/30/2023 does show plaque Does wellHas been eating more carbs, more diet and exerciseGe t labs Chronic ob structive pulmonary disease 38890983 J44.9 Seen Joleen Gambino NPNow to get a in lab sleep study as per her historyNow wants to see dileep in [place], referred 09/18/2024 Vonda Carolina [facility] 10/01/2024 , next apt 04/01/2025 Hyperglycemia 18567738 R 73.9 On metformin 500mg po bid Needs to diet and exerciseNe eds to do labs and see eye and foot Increased liver function 11660634 R94.5 US liver 12/27/21CT A/P 01/13/2022 CMP: LFTs WNL 04/18/2022 Should see GI hepatology , states that she did not do this the last time as she did not have the rideReferr ed again 10/23/2023 Hydroureter 96914620 N13 .4 S/p CT A/P 01/13/2022 Aneurysm o f thoracic aorta 348936789 I71.[address] Jasbir CASIANO, as per note 04/27/2022 , TAA is 4.2cm, f/u in 6 monthsDr Jasbir CASIANO 03/21/2023 , f/u in 6 months, is to get CT C/A/P on 10/30/2023 OV 09/18/2024 :Now will see Dr Jasbir CASIANO 09/24/2024 , next in 6 months Hypercalcemia 31280502 E 83.52 NM parathyroi d scan 12/16/2022 [...] to stop HCTZ then Bleeding from nose [address] Bayron Morin ENT 03/16/2023 CTA neck 07/07/2023 Pain of ri ght hip joint 6662144688 86511 M25.551 S/p surgery Dr Garcia/u visit 04/22/2024 and next in one year Moderate r ecurrent major depression 82371165 F33.1 Feels overwhelme d with her medical [...] Member ID Alberto Member ID Guarantor Name 12/25/2024 1 [place] Jory Tucker [id number] Jory Tucker 12/25/2024 2 [place] WHEN MEDICARE OR MEDICARE REPLACEMENT PRIMARY) Jory Tucker [id number] Jory Tucker Notes Date Note Type Note Provider Name and Address Organization Details Recorded Time 12/25/2024 text/html 02/20/17Here to establish carePMD: [facility]'Past Hx:HTNHLDAnemiaSkin cancer L LERevmargaritod social family and surgical historyHere as she [...] she was seen by Dr Vazquez a oxygen equipment technician and was told to do a 'cath'She [...] well today, she did do the labs David Bach MD [address] [facility], [address] [place] [address], [place], [address], [facility] 12/25/2024 14:35:48 OBGyn Episode No OBEpisode recorded.
--- OUTSIDE RECORDS SUMMARY | 2024-12-27 09:31 | XMS_ITS | Clinical Summary ---
Author Organization [facility] [address] Address [address] [place] [address] Care Team Providers Care Carpenter Supervisor [employer] Name Role Phone Tu Bach MD Primary [...] Obesity, unspecified 01/20/2024 Moderate major depression 01/20/2024 shelter (current) use of oral hypoglycemic shanti gs 01/20/2024 Hypothyroidism, unspecified 01/20/2024 Chronic kidney disease, unspecified 01/20/2024 Body mass index (BMI) 32.0-32.9, adult Aftercare following joint replacement surgery Respiratory failure, post-operative 01/18/2024 Assessment & Plan (01/19/2024 1:26 PM [employer]): Occurring after R ANDREW 01/16. Pt reports [...] 01/18/2024 Assessment & Plan (01/19/2024 1:22 PM [employer]): Pt with h/o iron deficiency, though pre-op [...] complication Assessment & Plan (01/19/2024 1:26 PM [employer]): -Hold home metformin, resume on discharge -Agree with SSI and BG monitoring. Skin lesion 04/27/2022 Yzczx-6-mdvkudrruuh deficiency 04/20/2022 Hypoxia 04/20/2022 Dyspnea on exertion 03/07/2022 Obstructive sleep apnea syndrome 03/07/2022 Assessment & Plan (01/18/2024 5:38 PM [employer]): Continue to use home CPAP at night and during naps. Aneurysm of thoracic aorta 01/19/2022 Nonalcoholic fatty liver 01/19/2022 COVID-19 01/16/2022 Hydroureter 01/09/2022 Chronic kidney disease 12/15/2021 Elevated liver enzymes 12/15/2021 Hyperglycemia 12/15/2021 Vitamin D deficiency 12/15/2021 Vertigo 09/07/2021 Chest pain, unspecified 07/15/2021 Hip pain 07/15/2021 Essential (primary) hypertension 07/15/2021 Assessment & Plan (01/18/2024 5:36 PM [employer]): Agree with holding home carvedilol and HCTZ in setting of borderline BP. -Monitor BP and resume home meds in stepwise fashion Tobacco dependence syndrome 07/15/2021 Trochanteric bursitis of right hip 07/15/2021 Primary osteoarthritis of right hip 07/15/2021 Assessment & Plan (01/18/2024 5:38 PM [employer]): S/p R ANDREW, defer management to primary ortho team Right hip pain 07/15/2021 It band syndrome, right 07/15/2021 Vitamin B12 deficiency anemia 01/29/2018 Microcytic anemia 01/22/2018 Hypertensive disorder 02/20/2017 Hyperlipidemia 02/20/2017 Hypothyroidism 02/20/2017 Assessment & Plan (01/18/2024 5:37 PM [employer]): Cont synthroid Iron deficiency 02/20/2017 Palpitations 01/24/2013 Chronic obstructive pulmonary disease, unspecifi ed 11/28/2011 Assessment & Plan (01/19/2024 1:22 PM [employer]): H/o COPD as well as 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 COPD may be contributing to present hypoxia, although not currently wheezing. -Scheduled duonebs ordered QID -For home would order PRN albuterol MDI q6h PRN -Hold on steroids for now unless wheezing Anemia, unspecified 11/28/2011 Obesity 11/28/2011 Encounters Date Type Department Care Team Description 10/15/2024 Orders Only [facility] Medicine Surgery [address] [facility] [address] [place] [address] David Booker MD Primary hyperparathyroidism (Primary Dx) from Last 3 Months Immunizations Immunization Administration [...] Tobacco: Never Tobacco Cessation:Counseling Given: Not Answered [facility] Utilities Answer Date Recorded In the past [...] often do you attend chur ch or mormonism services? 1 to 4 times per year 01/18/2024 Do you belong to any clubs o r organizations such as congregational groups, unions, fraternal or athletic groups, or [...] any time in the past 12 m [place], were you homeless or living in a [facility] (including now)? No 01/18/2024 Personal Safety Answer Date Recorded Have you ever been in or are you currently in a harmful physical or emotional relationship or is someone making you feel afraid or unsafe? Denies 01/17/2024 Comments No Sex and Gender Information Value Date Recorded Sex Assigned at Not on file Legal Sex Female 10:52 AM [employer] Gender Identity Not on file Sexual Orientation Not on file Last Filed Vital Signs Vital Sign Reading Time Taken Comments Blood Pressure 109/57 01/19/2024 7:11 AM [employer] Pulse 77 01/19/2024 7:11 AM [employer] Temperature 36.6 C (97.9 F) 01/19/2024 7:11 AM [employer] Respiratory Rate 18 01/19/2024 7:11 AM [employer] Oxygen Saturation 97% 01/19/2024 11:55 AM [employer] Inhaled Oxygen Concentration - - Weight 81.6 kg (180 lb) 01/17/2024 7:30 AM [employer] Height 157.5 cm (5' 2) 01/17/2024 7:30 AM [employer] Body Mass Index 32.92 01/17/2024 7:30 AM [employer] Plan of Treatment Health Maintenance Due Date [...] 05/09/2022 Hemoglobin A1C 06/30/2024 01/01/2024 Covid-19 Vaccine (6 - 2024-2 6 season) 2024 02/23/2021, 04/27/2020, 04/25/2020, Additional history exists Influenza Vaccine (#1) 2024 , 12/06/2019, 12/06/2019, Additional history exists eGFR 01/17/2025 01/18/2024, 01/01/2024 Fall Risk Assessment 01/18/2025 01/19/2024 Pneumococcal vaccine 65+ Completed 017, 09/23/2015, 08/31/2015, Additional history exists Medical Devices Implanted Type Area Offset Lithographic Press Setter Device Identifier Shelf Expiration Date Model / Serial / Lot [employer] Liner Acetabular Hip Trident X3 40mm Polyethylene 0 Degree Size E 723-00-40e - [id number] Implanted:Qty: 1 on 01/17/2024 at [facility] Right: Hip [employer] 10/18/2028 723-00-40E / / [id number] [employer] 40mm Hip Ackley Taper Head Femoral Biolox Delta 6519-1-040 - [id number] Implanted:Qty: 1 on 01/17/2024 at [facility] Right: Hip [employer] 11/11/2028 6519-1-040 / / [id number] [employer] Screw Bone Trident Ii L30mm Od6.5mm Low Profile Hexagonal Sterile 5112-1172 - [id number] Implanted:Qty: 1 on 01/17/2024 at [facility] Right: Hip [employer] 09/12/2028 6468-2938 / / [id number] [employer] Shell Acetabular Trident Ii Tritanium E Od52mm Hip 5 Screw Hole Cluster Sterile 702-04-52e - [id number] Implanted:Qty: 1 on 01/17/2024 at [facility] Right: Hip [employer] 11/07/2028 702-04-52E / / [id number] [employer] Stem Insignia Hip Size 6 High Offset 9546-0771 - [id number] Implanted:Qty: 1 on 01/17/2024 at [facility] Right: Hip [employer] 11/20/2028 4500-5890 / / [id number] [employer] V40 Hip +0mm Offset Ackley Taper Sleeve Adapter Titanium 6519-T-100 - [id number] Implanted:Qty: 1 on 01/17/2024 at [facility] Right: Hip [employer] 12/04/2028 6519-T-100 / / [id number] Procedures Procedure Name Priority Date/Time Associated Diagnosis Comments EGFR Routine 01/18/2024 4:41 AM [employer] HEMOGLOBIN A1C Routine 01/01/2024 3:32 PM [employer] Preoperative testing Type 2 diabetes mellitus with chronic kidney disease, without long-term current use of insulin, unspecified CKD stage (HCC) from Last 3 Months or Most Recently Relevant to Health Maintenance Results * eGFR (01/18/2024 4:41 AM [employer]) eGFR >90 >=60 mL/min/1. 73 m2 Comment: [...] last reviewed 2020. Blood 01/18/2024 4:41 AM [employer] 01/18/2024 4:52 AM [employer]OP[employer] us Kira [facility] LAB BLOOD ORDERABLES Jeanna mortensen Result [facility] [address] [facility] Department [place] [address] * (ABNORMAL) Hemoglobin A1c (01/01/2024 3:32 PM [employer]) Hgb A1C 6.4(H) 4.0 - 5.6 % Estimated Average Glucose 137 mg/dL [facility] Comment: The ADA recommends reporting an estimated Average Glucose (eAG) with all Hemoglobin A1c results using the equation derived from a study of 507 normal and diabetic adults. Minority populations were underrepresented and children were not included. (Diabetes Care 2020; 43(S1): S66-S76). The eAG is not equivalent to a fasting glucose. Blood 01/01/2024 3:32 PM [employer] 01/01/2024 3:58 PM [employer]ELOPMENT David Mehta MD LAB BLOOD ORDERABLES Final Resul t Performing Organization Address City[facility] Co de Phone Number YASSINE SOLOMON [facility] [place] [address] from Last 3 Months or Most Recently Relevant to Health Maintenance Insurance MEDICARE MEDICARE IDDE MEDICARE IDPA Advance Directives For more information, please contact: [phone] * Full Code (Latest Code Status on File) Date Activated Date Inactivated Comments 01/17/2024 1:48 PM 01/19/2024 5:18 PM Care Teams Carpenter Supervisor [employer] Relationship Specialty Start Date End Date Tu Bach MD [address] [place] [address] PCP - General Internal Medicine 06/08/21
[2024-12-27 09:53] LABS: Estimated Glomerular Filt Rate > 60
== END 2024-12-27 09:25 | disposition home or self-care (01) ==
PROVIDERS: PCP Internal Medicine; Visit Provider Internal Medicine Cardiovascular Disease
DX: I71.21 Aneurysm of the ascending aorta, without rupture (principal); R00.2 Palpitations; I10 Essential (primary) hypertension; I25.10 Atherosclerotic heart disease of native coronary artery without angina pectoris; J43.9 Emphysema, unspecified; K76.89 Other specified diseases of liver; E66.9 Obesity, unspecified; Z68.35 Body mass index [BMI] 35.0-35.9, adult
CPT/HCPCS: 71260; Q9967